=== PATIENT | male | born 1965 | race Two or more races ===

== ENCOUNTER 2024-06-08 07:46 | Outpatient (AMB) | payer OTHER, SELFPAY ==
--- OUTSIDE RECORDS SUMMARY | 2024-06-08 07:54 | XMS_ITS | Clinical Summary ---
Author Organization [facility] Address [address] [place] [address] Care Team Providers Care Crm Marketing Manager Name Role Phone Melanie Cummins Primary Care Provider +1 [phone] Allergies No known active allergies Medications Medication Sig Dispensed Refills Start Date End Date Status aspirin EC 325 MG tablet Take 325 mg by mouth continuous prn for pain. 0 Active Active Problems Problem Noted Date Diagnosed Date Large cell lymphoma 02/15/2017 Immunizations Name Administration Dates Next Due Covid-19 (Pfizer) Dilution Required 01/28/2021,0 06/05/2020,05/15/2020 Social History Tobacco Use Types Packs/Day Years Used Date Smoking Tobacco: Former Smokeless Tobacco: Never Alcohol Use Standard Drinks/Week Comments Yes 0 (1 standard drink = 0.6 oz pur e alcohol) social Sex and Gender Information Value Date Recorded Sex Assigned at Not on file Gender Identity Not on file Sexual Orientation Not on file Job Start Date Occupation Industry Not on file Not on file Not on file Last Filed Vital Signs Vital Sign Reading Time Taken Comments Blood Pressure 150/66 06/09/2022 9:50 AM EDT Pulse 86 06/09/2022 9:50 AM EDT Temperature 37 ??C (98.6 ??F) 06/09/2022 9:50 AM EDT Respiratory Rate - - Oxygen Saturation 100% 06/09/2022 9:50 AM EDT Inhaled Oxygen Concentration - - Weight 164.7 kg (363 lb) 06/09/2022 9:50 AM EDT Height 180.3 cm (5' 11 ) 12/09/2021 9:08 AM EDT Body Mass Index 50.63 12/09/2021 9:08 AM EDT Plan of Treatment Health Maintenance Due Date Last Done Comments Hepatitis C Screening 1965 Pneumococcal Vaccine (1 of 2 - PCV) 12/03/1969 Depression Screening 1975 Preventative Health Evaluation 12/03/1981 DTap / Tdap / Td (1 - Tdap) 12/03/1982 Shingrix-Zoster Vaccine (1 o f 2) 12/03/1982 Colon Cancer Screening (Colonoscopy) 12/03/2008 COVID-19 Vaccine (4 - 2023-2 5 season) 2023 01/28/2021, 06/05/2020, 05/15/2020 Influenza Vaccine (#1) 2023 RSV Adult > 60+ Yrs or (1 - 1-dose 75+ series) 12/03/2038 Hepatitis B Vaccines Aged Out No long er eligible based on patient's age to complete this topic RSV Ped < 20 months Aged Out No longe r eligible based on patient's age to complete this topic Care Teams Crm Marketing Manager Relationship Specialty Start Date End Date Melanie Cummins PA PCP - General Physician Lap Hand Tool 12/09/21
--- OUTSIDE RECORDS SUMMARY | 2024-06-08 07:54 | XMS_ITS | Clinical Summary ---
Author Organization [facility] Address [address] [place] [address] Care Team Providers Care Java Support Engineer Name Role Phone Melanie Cummins Primary Care Provider +1 [phone] Surgical History Surgery Date Site/Laterality Comments ROTATOR CUFF REPAIR PROCEDURE: HISTORICAL ROTATOR CUFF REPAIR; COMMENT: bilateral COLONOSCOPY 09/2009 PROCEDURE: [place] COLONOSCOPY FLX DX W/COLLJ SPEC WHEN PFRMD; COMMENT: Up to cecum, good preparation, 2 small polyps removed:tubular adenoma/hyperplastic, diverticulosis Medical History Medical History Date Comments Morbid obesity (CMS/HCC) 08/24/2008 DX:Morb id obesity (HCC) 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) DX: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) Family History Relation Name Status Comments Father Alive low blood press ure, hyperlipidemia, [place] at age 65, hemochromatosis Mother Alive obesity, arthri tis, htn, Social History Tobacco Use Types Packs/Day Years Used Date Smoking Tobacco: Former Cigarettes Q uit: 03/29/1984 Smokeless Tobacco: Never Alcohol Use Standard Drinks/Week Comments Yes 0 (1 standard drink = 0.6 oz pur e alcohol) Sex and Gender Information Value Date Recorded Sex Assigned at Not on file Legal Sex Male 8:06 PM EST Gender Identity Not on file Sexual Orientation Not on file Obstetrics History Last Filed Vital Signs Vital Sign Reading Time Taken Comments Blood Pressure 150/66 06/09/2022 9:50 AM EDT Sitting Right arm Pulse 86 06/09/2022 9:50 AM EDT Temperature - - Respiratory Rate - - Oxygen Saturation - - Inhaled Oxygen Concentration - - Weight 165 kg (363 lb) 06/09/2022 9:50 AM EDT Height 180.3 cm (5' 11 ) 12/09/2021 9:0 8 AM EDT Body Mass Index 50.63 12/09/2021 9:08 AM EDT Plan of Treatment Health Maintenance Due Date Last Done Comments DTaP,Tdap,and Td Vaccines (1 - Tdap) 12/03/1982 Pneumococcal Vaccine: 50+ Years (1 of 2 - PCV) 12/03/1982 Pneumococcal Vaccine: Pediatrics (0 to 5 Years) and At-Risk Patients (6 to 64 Years) (1 of 2 - PCV) 12/03/1982 Zoster Vaccines (1 of 2) 12/03/1982 Cholesterol Screening (Lipid Panel) 03/07/2022 Colorectal Cancer Screening: Colonoscopy 03/07/2022 Depression Screening 03/07/2022 HIV Screening 03/07/2022 Hepatitis C Screening 03/07/2022 Social Influencers of Health Screening 03/07/2022 COVID-19 Vaccine (4 - 2023-2 5 season) 2023 01/28/2021, 06/05/2020, 05/15/2020 Influenza Vaccine (#1) 2023 Hepatitis B Vaccines (1 of 3 - Risk 3-dose series) 2023 RSV Immunization Patients 60 + Years Old (1 - Risk 60-74 years 1-dose series) 2023 Hepatitis A Vaccines Completed 09/17/2009, 01/04/2009 HIB Vaccines Aged Out No longer eligi ble based on patient's age to complete this topic HPV Vaccines Aged Out No longer eligi ble based on patient's age to complete this topic IPV Vaccines Aged Out No longer eligi ble based on patient's age to complete this topic MMR Vaccines Aged Out No longer eligi ble based on patient's age to complete this topic Meningococcal ACWY Vaccine Aged Out N o longer eligible based on patient's age to complete this topic Meningococcal B Vacine Aged Out No lo nger eligible based on patient's age to complete this topic RSV Immunization Patients Under 20 months Aged Out No longer eligible b ased on patient's age to complete this topic Varicella Vaccines Aged Out No longer eligible based on patient's age to complete this topic Care Teams Java Support Engineer Relationship Specialty Start Date End Date Melanie Cummins PA [address] [facility] [address] [place] [address] PCP - General Physician Card Grader 12/09/21
[2024-06-08 08:11] VITALS: BP 130/84; PULSE 72; TEMP 36.4; O2SAT 97; BMI 50.6
--- NOTE | 2024-06-08 08:11 | MHC.PC.OV ---
Vital Signs 06/08/24 08:11 Height 5 ft 10.08 in Weight 353 lb 8 oz BMI 50.6 BP 130/84 Blood Pressure Location Lt brachial Position Sitting Pulse 72 Pulse Source Pulse Oximeter Temp 97.5 F Temp Source Temporal Artery Scan Pulse Oximetry (%) 97 Oxygen Delivery Method Room Air Intake Visit Reasons: establish care Intake Note: Patient is a new patient here to establish care for Stage four cancer, Neuropathy. Transferring care from Dr Raya ([facility]). Medical records have been requested and have not received. Medical Records Auditor: Not Required per policy Accompanied by: Self / Same As Patient Allergies No Known Allergies Allergy (Verified 06/08/24 08:23) Medication List - Last Reconciled 06/08/24 by Sammie Estrella PA-C aspirin 81 mg PO DAILY Tobacco use date assessed: 06/08/24 Dental Screening Dental Screen Date: 06/08/24 Did you have a dental visit in the last 12 months?: No Did you have a dental problem in the last 6 months where you did not have access to dental care?: No Was dental information given to patient?: Patient has dentist HPI establish care HPI Details 58-year-old male coming to the office for 1st time. Last seen by Dr. Araujo [facility] last seen about 10 years ago. Presenting with a wellness visit and management of chronic conditions including edema, erectile dysfunction, and neuropathy. 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 Reports chronic peripheral neuropathy and pitting edema in feet since lymphoma treatment, worsened by activity and dietary sodium. Struggles with erectile dysfunction post-cancer treatment, seeking potential pharmacologic treatment. 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 1. Little interest or pleasure in doing things: not at all 2. Feeling down, depressed, or hopeless: not at all 3. Trouble falling or staying asleep, or sleeping too much: not at all 4. Feeling tired or having little energy: not at all 5. Poor appetite or overeating: not at all 6. Feeling bad about yourself - or that you are a failure or have let yourself or your family down: not at all 7. Trouble concentrating on things, such as reading the newspaper or watching television: not at all 8. Moving or speaking so slowly that other people could have noticed. Or the opposite - being so fidgety or restless that you have been moving around a lot more than usual: not at all 9. Thoughts that you would be better off or of hurting yourself in some way: not at all Total score: 0 Depression Screening Interpretation: Negative Depression Screening Done: Yes 25819 - PHQ-9 Billing: Yes Source: Developed by Drs. Viral Wynn, Anayeli Gonsalez, Kentrell West and colleagues, with an educational josseline from [employer]. Thrive Questionnaire Date Thrive assessed: 06/08/24 I am a: Patient What is your living situation today?: I have a steady place to live Within the past 12 months, did the food you bought not last and you didn't have the money to get more?: Never true Within the past 12 months, did you worry whether your food would run out before you got money to buy more?: Never true Do you have trouble paying for medicines?: No Do you have trouble getting transportation to medical appointments?: No Do you have trouble paying your heating and electricity bill?: No Do you have trouble taking care of your child, family member or friend?: No Do you have trouble with day-to-day activities such as bathing, preparing meals, shopping, managing finances, etc.?: No Are you currently unemployed and looking for a job?: No Are you interested in more education?: No Please select the resources that you would like help with: None Currently or been in a relationship where the following occur: No concerns reported THRIVE Score: 0 AUDIT C Alcohol Use Questionnaire (AUDIT-C) 1. How often do you have a drink containing alcohol?: Never Total Score: 0 MARRY-7 AMB Questionnaire MARRY-7 Date MARRY - 7 assessed: 06/08/24 Feeling nervous, anxious, or on edge: 0 = Not at all Not being able to stop or control worryin = Not at all Worrying too much about different things: 0 = Not at all Trouble relaxin = Not at all Being so restless that it is hard to sit still: 0 = Not at all Becoming easily annoyed or irritable: 0 = Not at all Feeling afraid as if something awful might happen: 0 = Not at all Total MARRY-7 score (0-4 normal; 5-9 mild; 10-14 moderate; 15-21 severe): 0 Source: Developed by Drs. Viral Wynn, Anayeli Gonsalez, Kentrell West and colleagues, with an educational josseline from [employer]. MARRY-7 Assessment Billing MARRY-7 Assessment Tool: MARRY-7 Assessment 50245 Review of Systems Const Denies body aches, Denies chills, Denies fever(s), Denies headache(s) and Denies poor appetite Eyes Reports no additional complaints ENT Denies dizziness and Denies headache(s) Card Denies chest pain, Denies syncope, Denies lightheadedness and Denies dyspnea Resp Denies cough and Denies dyspnea GI Reports no additional complaints, Denies nausea and Denies vomiting Reports erectile dysfunction Musc Details: bilateral leg swelling Denies abnormal gait Skin/Breast Reports system reviewed and no additional complaints, except as documented Neuro Denies abnormal gait, Denies dizziness, Denies syncope and Denies headache(s) Psych Reports no additional complaints Physical exam (Primary Care) Vital Signs: Last Vital Signs Temp 97.5 F 06/08/24 08:11 Pulse 72 06/08/24 08:11 BP 130/84 06/08/24 08:11 Pulse Ox 97 06/08/24 08:11 Oxygen Delivery Method Room Air 06/08/24 08:11 BMI result Body Mass Index 50.6 Tobacco/Smoking Status: Tobacco use Status Tobacco use date assessed 06/08/24 06/08/24 08:12 Patient Tobacco Use Status Never used Tobacco 06/08/24 08:12 Tobacco use type Cigarette 06/08/24 08:12 e-Cigarette/Vaping Use Never Used 06/08/24 08:12 PHQ-9: PHQ-9 Score PHQ-9: Total score 0 06/08/24 11:42 Depression Screening Interpretation: Negative Thrive Assessment: Date of Thrive Assessment Date Thrive assessed 06/08/24 06/08/24 08:12 Currently or been in a relationship where the following occur: No concerns reported Const General: cooperative, healthy appearing, comfortable and no acute distress Orientation/consciousness: patient oriented x3 HENMT Head: Yes normocephalic Ears: hearing grossly normal bilaterally General nose exam: Normal external nose present Eyes General: appearance normal, both eyes and all related structures Conjunctivae: conjunctivae normal Neck Neck: Yes full ROM and Yes no lymphadenopathy Resp Effort & Inspection: normal respiratory effort Auscultation: clear to auscultation bilaterally, no crackles, no rales, no rhonchi and no wheezes Cardio Rate: regular rate Rhythm: regular rhythm Skin General skin exam: no rashes or lesions noted Neuro General: patient oriented x3 Gait exam (Neuro): Normal gait present Extrem Other: Bilateral 1+ pitting edema with intact sensation and pulses in bilateral lower extremities General: Yes normal to inspection, Yes full ROM and No edema Psych Affect: normal affect Attitude: cooperative Insight: Good insight present (Psych) Judgement: Good judgement present (Psych) Coding Level of Care Code New Pt Level 4 (27163) Diagnoses Stage Lola non-Hodgkin lymphoma C85.90 Erectile dysfunction N52.9 Neuropathy G62.9 Bilateral swelling of feet M79.89 Diabetes mellitus E11.9 Thrombocytopenia D69.6 Low vitamin D level R79.89 Hypercholesterolemia E78.00 Additional Codes MARRY-7 Assessment Billing - MARRY-7 Assessment Tool: MARRY-7 Assessment 07737 ([id number]) PHQ-9 - 77762 - PHQ-9 Billing: Yes ([id number]) Assessment & Plan Assessment & Plan (1) Stage Lola non-Hodgkin lymphoma: Comment: 2013 followed with [facility] Oncology Dr. Shaikh has not been seen since 2019 Code(s): C85.90 - Non-Hodgkin lymphoma, unspecified, unspecified site Category: Medical Plan: Plan to refer to Hematology for further evaluation. (2) Erectile dysfunction: Code(s): N52.9 - Male erectile dysfunction, unspecified Category: Medical Plan: Patient having erectile dysfunction ongoing for several years plan to start on sildenafil as needed. (3) Neuropathy: Comment: in bilateral feet since cancer (2013) Code(s): G62.9 - Polyneuropathy, unspecified Category: Medical Plan: patient complaining of neuropathy ongoing since his hospitalization 10 years ago. He declines the need for medication at this time and does not want further workup. (4) Bilateral swelling of feet: Code(s): M79.89 - Other specified soft tissue disorders Category: Medical Plan: patient having 1+ pitting edema of bilateral lower extremities. He does have chronic venous insufficiency after his diagnosis of cancer due to does not hospitalization. He exercises and elevates the legs as needed with good relief. He can not tolerate compression stockings. plan to give short course of furosemide to help with symptoms can consider referral to vascular surgery if symptoms persist however referral was declined at this time (5) Diabetes mellitus: Code(s): E11.9 - Type 2 diabetes mellitus without complications Category: Medical Plan: patient has new diagnosis of diabetes mellitus which was discovered offer who left the office. I did call discussed with him and plan to start on metformin twice daily and repeat A1c in 3 months. He declined injections including insulin at this time. he does understand the risks of prolonged elevated blood sugars he is to work on dietary and lifestyle modification addition to the medication Decrease the amount of carbohydrates such as pasta, bread, rice, and potatoes and limit the amount of sweets. Although fruits are generally healthy they should be eaten in moderation as they are still high in sugar. Hemoglobin A1c goal of less than 7%. A1c on most recent blood work 10.4% (6) Thrombocytopenia: Code(s): D69.6 - Thrombocytopenia, unspecified Category: Medical Plan: On most recent blood work patient having thrombocytopenia referral to Hematology updated to reflect this new diagnosis. (7) Low vitamin D level: Code(s): R79.89 - Other specified abnormal findings of blood chemistry Category: Medical Plan: Low vitamin-D prescription sent for replacement. (8) Hypercholesterolemia: Code(s): E78.00 - Pure hypercholesterolemia, unspecified Category: Medical Plan: New diagnosis of hypercholesterolemia LDL goal less than 100 to reflect new diagnosis of diabetes. At this time plan to work on dietary and lifestyle modification and redraw in 3 months. Avoid foods that are high in cholesterol such as red meat, fried foods, eggs and baked goods. Triglyceride goal of less than 150 and LDL goal of less than 100. Plan Patient was informed and verbally consented to the use of an ambient scribe for clinic note documentation during this visit.This note was constructed using voice recognition software. While every effort has been made to ensure accuracy and registered nurse maternal child, still areas may have been included sometimes these areas may affect the content or meeting of the given symptoms. Total time spent caring for the patient today was 30 minutes. This includes time spent before the visit reviewing the chart, time spent during the visit, and time spent after the visit and documentation. Orders: Orders Comprehensive Met. Panel Today Z00.00 - Encounter for general adult medical examination without abnormal findings Complete Blood Count Auto Diff Today Z00.00 - Encounter for general adult medical examination without abnormal findings Free T4 (Free Thyroxine) Today Z00.00 - Encounter for general adult medical examination without abnormal findings Vitamin B12 and Folate Today Z00.00 - Encounter for general adult medical examination without abnormal findings Vitamin D 25-OH Total Today Z00.00 - Encounter for general adult medical examination without abnormal findings Hemoglobin A1c Today G62.9 - Polyneuropathy, unspecified, Z13.1 - Encounter for screening for diabetes mellitus Lipid Panel 3 Months E78.00 - Pure hypercholesterolemia, unspecified Liver Panel Today R79.89 - Other specified abnormal findings of blood chemistry Lactate Dehydrogenase Today C85.90 - Non-Hodgkin lymphoma, unspecified, unspecified site TSH reflex Free T4 Today Z00.00 - Encounter for general adult medical examination without abnormal findings PSA, Ultra Sensitive Today Z00.00 - Encounter for general adult medical examination without abnormal findings Lipid Panel Today E78.00 - Pure hypercholesterolemia, unspecified Testosterone, Free/Total Today N52.9 - Male erectile dysfunction, unspecified B Type Natriuretic Peptide Today M79.89 - Other specified soft tissue disorders Hemoglobin A1c 3 Months E11.65 - Type 2 diabetes mellitus with hyperglycemia Referrals Hematology & Oncology Referral C85.90 - Non-Hodgkin lymphoma, unspecified, unspecified site, D69.6 - Thrombocytopenia, unspecified Medications: New sildenafil administer 30 minutes to 4 hours before activity 50 mg PO DAILY PRN 20 tabs 0RF sexual activity furosemide 20 mg PO DAILY 7 tabs 0RF cholecalciferol (vitamin D3) 25 mcg PO DAILY 90 caps 3RF metformin 500 mg PO BID 60 tabs 2RF
--- OUTSIDE RECORDS SUMMARY | 2024-06-08 08:22 | XMS_ITS | Clinical Summary ---
Author Organization [facility] Address [address] [place] [address] Care Team Providers Care Supervisor Drying And Softening Name Role Phone Melanie Cummins Primary Care Provider +1 -[phone] Allergies No known active allergies Medications Medication [...] age to complete this topic Care Teams Supervisor Drying And Softening Relationship Specialty Start Date End Date Melanie Cummins PA PCP - General Physician Procurement Services Manager 12/09/21
--- OUTSIDE RECORDS SUMMARY | 2024-06-08 08:22 | XMS_ITS | Clinical Summary ---
Author Organization [facility] Address [address] [place] [address] Care Team Providers Care Water Fitness Instructor Name Role Phone Melanie Cummins Primary Care Provider +1 -[phone] Surgical History Surgery Date Site/Laterality Comments ROTATOR CUFF REPAIR PROCEDURE: HISTORICAL ROTATOR CUFF REPAIR; COMMENT: bilateral COLONOSCOPY 09/2009 PROCEDURE: [place] COLONOSCOPY FLX DX W/COLLJ SPEC WHEN PFRMD; [...] Father Alive low blood press ure, hyperlipidemia, [place] at age 65, hemochromatosis Mother Alive obesity, [...] age to complete this topic Care Teams Water Fitness Instructor Relationship Specialty Start Date End Date Melanie Cummins PA [address] [facility] [address] [place] [address] PCP - General Physician Alodize Machine Helper 12/09/21
== END 2024-06-08 08:53 | disposition home or self-care (01) ==
DX: E11.42 Type 2 diabetes mellitus with diabetic polyneuropathy (principal); C85.90 Non-Hodgkin lymphoma, unspecified, unspecified site; D69.6 Thrombocytopenia, unspecified; N52.9 Male erectile dysfunction, unspecified; G62.9 Polyneuropathy, unspecified; M79.89 Other specified soft tissue disorders; R79.89 Other specified abnormal findings of blood chemistry; E78.00 Pure hypercholesterolemia, unspecified

== ENCOUNTER 2024-06-08 07:51 | Outpatient (REF) | payer OTHER, SELFPAY ==
[2024-06-08 09:39] LABS: Basophils Absolute Auto 0.1 X10*3/uL (0.0-0.2); Eosinophils Absolute Auto 0.3 X10*3/uL (0.0-0.4); Eosinophils Percent Auto 5.8 % (0-4); Hematocrit 39.5 % (42.0-52.0); Imm Gran Abs Auto 0.01 X10*3/uL (0.00-0.03); Imm Gran Pct Auto 0.2 % (0.0-0.4); Lymphocytes Absolute Auto 1.4 X10*3/uL (1.2-4.9); Mean Corpuscular HGB Conc 32.9 g/dl (31.0-36.0); Mean Corpuscular Hemoglobin 29.9 pg (27.0-33.0); Mean Corpuscular Volume 90.8 fL (80.0-98.0); Mean Platelet Volume 12.5 fL (9.4-12.4); Monocytes Absolute Auto 0.5 X10*3/uL (0.1-1.2); Monocytes Percent Auto 9.1 % (2-11); Neutrophils Absolute Auto 2.7 x10*3/uL (2.0-8.3); Neutrophils Percent Auto 54.9 % (45-73); Red Blood Count 4.35 X10*6/uL (4.60-5.80); Red Cell Distribution Width 13.6 % (11.0-16.0)
[2024-06-08 09:40] LABS: MANUAL DIFF FLAG SCAN; Platelet Count 91 X10*3/uL (160-400)
[2024-06-08 09:48] LABS: Estimated Average Glucose 260 mg/dL; Hemoglobin A1c % 10.7 % (<6.0)
[2024-06-08 09:59] LABS: SLIDE REVIEW VERIFIED
[2024-06-08 10:03] LABS: B Type Natriuretic Peptide 81 pg/mL (<100)
--- OUTSIDE RECORDS SUMMARY | 2024-06-08 10:08 | XMS_ITS | Clinical Summary ---
Author Organization [facility] Address [address] [place] [address] Care Team Providers Care Wheel Loader Operator Name Role Phone Melanie Cummins Primary Care Provider [phone] [phone] Surgical History Surgery Date Site/Laterality Comments ROTATOR CUFF REPAIR PROCEDURE: HISTORICAL ROTATOR CUFF REPAIR; COMMENT: bilateral COLONOSCOPY 09/2009 PROCEDURE: [place] COLONOSCOPY FLX DX W/COLLJ SPEC WHEN PFRMD; [...] Father Alive low blood press ure, hyperlipidemia, [place] at age 65, hemochromatosis Mother Alive obesity, [...] age to complete this topic Care Teams Wheel Loader Operator Relationship Specialty Start Date End Date Melanie Cummins PA [address] [facility] [address] [place] [address] PCP - General Physician Auto Locator 12/09/21
[2024-06-08 10:16] LABS: Anion Gap 10 (12-20)
[2024-06-08 10:20] LABS: Alanine Aminotransferase 31 U/L (0-40); Albumin Level 3.5 g/dL (3.5-5.0); Alkaline Phosphatase 84 U/L (39-117); Aspartate Amino Transferase 39 U/L (5-37); Blood Urea Nitrogen 13 mg/dL (9-16); Calcium 8.9 mg/dL (8.4-10.2); Carbon Dioxide 26 mmol/L (22-29); Chloride 107 mmol/L (96-108); Cholesterol 180 mg/dL (<200); Estimated Glomerular Filt Rate > 60; Glucose Random 314 mg/dL (60-115); HDL Cholesterol 56 mg/dL (>40); LDL Cholesterol Calculated 104 mg/dL (<100); Potassium 4.2 mmol/L (3.3-5.1); Sodium 139 mmol/L (135-145); Total Protein 6.8 g/dL (6.5-8.0); Triglycerides 100 mg/dL (<150)
[2024-06-08 10:28] LABS: Free T4 (Free Thyroxine) 1.19 ng/dL (0.71-1.85); Lactate Dehydrogenase 222 U/L (118-273); TSH reflex Free T4 1.59 uIU/mL (0.32-4.0); Vitamin D 25-OH Total 9.4 ng/mL (>30)
[2024-06-08 10:42] LABS: Folate 11.6 ng/mL (> or = 4.0); Vitamin B12 611 pg/mL (200-900)
[2024-06-13 19:09] LABS: PSA, Ultra Sensitive 0.34 ng/mL
[2024-06-19 14:52] LABS: Testosterone, Total 475 ng/dL (250-1100)
== END 2024-06-08 07:52 | disposition home or self-care (01) ==
LOC: HO.LAB 07:51
DX: N52.9 Male erectile dysfunction, unspecified (principal); G62.9 Polyneuropathy, unspecified; M79.89 Other specified soft tissue disorders; E11.9 Type 2 diabetes mellitus without complications; D69.6 Thrombocytopenia, unspecified; E55.9 Vitamin D deficiency, unspecified; E78.00 Pure hypercholesterolemia, unspecified; C83.30 Diffuse large B-cell lymphoma, unspecified site; Z00.00 Encounter for general adult medical examination without abnormal findings; Z12.5 Encounter for screening for malignant neoplasm of prostate
CPT/HCPCS: 36415; 80053; 80061; 82306; 82607; 82746; 83036; 83615; 83880; 84153; 84402; 84403; 84439; 84443; 85025; 96127

== ENCOUNTER → 2024-07-06 13:40 | Outpatient (BNV) | payer OTHER, SELFPAY | PROVIDERS: Visit Provider Internal Medicine Medical Oncology | DX: C85.90 Non-Hodgkin lymphoma, unspecified, unspecified site (principal) | CPT/HCPCS: 99204 ==

== ENCOUNTER 2024-09-04 14:57 | Inpatient (IN) | payer OTHER, SELFPAY ==
--- NOTE | ~2024-09-04 | MR_ITS ---
EXAMINATION: MR LUMBAR SPINE WITHOUT AND WITH CONTRAST CLINICAL INFORMATION: Low back pain radiating to the left knee. Concerning epidural abscess. COMPARISON: None available. TECHNIQUE: MRI of the lumbar spine was obtained using routine sequences with and without contrast. Intravenous contrast: Gadolinium based (Gadavist) 10 mL FINDINGS: Last rib-bearing vertebra labeled T12. There is a hypointense T1 and hyperintense STIR heterogeneously enhancing signal abnormality extending from the vertebral bodies of L4 and L5 to the prevertebral compartment hematoma circumferential fashion extending to the epidural compartment of the central spinal canal causing central spinal canal stenosis compressing the neural elements of the thecal sac at L4-5. There is extension to the inner aspect of the psoas muscles and into the lumbar muscles from L4 to S1. Conus medullaris ends at superior endplate of L1. Multilevel spondylosis more conspicuous at L1-2. MR/MR lumbar spine wo/w con IMPRESSION: Prevertebral compartment/epidural abscess/osteomyelitis L4-5 compressing the neural elements of the thecal sac and the exiting nerve roots more pronounced at L4-5 and extending into S1-2. Electronically signed by: Brett Heath MD 09/06/2024 02:07 PM EDT
--- NOTE | ~2024-09-04 | XR_ITS ---
EXAMINATION: XR CHEST 2 VIEWS HISTORY: weakness COMPARISON: There are no prior studies available for comparison. FINDINGS: PA and lateral views of the chest are submitted. The lungs are expanded and clear. There is no pleural effusion, pneumothorax, or pulmonary vascular congestion. The heart is normal in size. The bones are intact. XR/XR chest 2V IMPRESSION: Clear lungs. Electronically signed by: Viral Valdes MD 09/04/2024 03:43 PM EDT
--- NOTE | ~2024-09-04 | XR_ITS ---
CLINICAL HISTORY: trauma 4 view left knee Comparison: None Findings: Bones intact. No dislocations. Mild medial compartment joint space narrowing. Moderate joint effusion. Patellar enthesopathy. No radiopaque foreign body. IMPRESSION: 1. No acute osseous injury. 2. Moderate knee joint effusion. This document has been electronically signed by: Priynaka Philippe MD on 09/04/2024 23:25:50
[2024-09-04 15:02] VITALS: BP 97/58; PULSE 82; RESP 18; TEMP 36.6; O2SAT 98; BMI 36.6
--- NOTE | 2024-09-04 15:02 | ED.GENADULT ---
HPI - General Adult General Chief complaint: Dizziness Stated complaint: Fall, Dizzy, left leg/ back pain, septic week ago Time Seen by Provider: 09/04/24 18:07 Source: patient Limitations: no limitations History of Present Illness ED Provider: Mitra Churchill PA-C HPI narrative: 58-year-old male with a history of obesity, diabetes with neuropathy, stage IV non-Hodgkin lymphoma, chronic low back and knee pain, Davis, cirrhosis, recent admission to [facility] for strep bacteremia, with concurrent extensive workup for his tram am rhinitis and hyper bilirubinemia, presents after fall. Patient has had ongoing weakness with gait instability for months. He fell yesterday, he fell again today. No head strike sustained. His noted that he was jaundiced over the past few days. The patient does not have an alcohol abuse history. No nausea vomiting diarrhea or abdominal pain at this time. Related Data Home Medications ?Medication ?Instructions ?Recorded ?Confirmed aspirin 81 mg tablet,delayed 81 mg PO DAILY 06/08/24 07/06/24 release Previous Rx's ?Medication ?Instructions ?Recorded cholecalciferol (vitamin D3) 25 25 mcg PO DAILY #90 caps 06/08/24 mcg (1,000 unit) capsule furosemide 20 mg tablet 20 mg PO DAILY #7 tabs 06/08/24 metformin 500 mg tablet 500 mg PO BID #60 tabs 06/08/24 sildenafil 50 mg tablet 50 mg PO DAILY PRN sexual activity 06/08/24 #20 tabs Allergies Allergy/AdvReac Type Severity Reaction Status Date / Time No Known Allergies Allergy Verified 09/04/24 15:05 Review of Systems Review of Systems: Yes all other systems are reviewed and are negative Constitutional: Constitutional: Denies fatigue, Denies fever(s) and Denies headache(s) ENT: Denies headache(s) Cardiovascular: Cardiovascular: Denies chest pain and Denies dyspnea Respiratory: Respiratory: Denies dyspnea Gastrointestinal: Gastrointestinal: Denies abdominal pain, Denies diarrhea, Denies nausea and Denies vomiting Integumentary/Breasts: Skin/Breast: Reports change in pigmentation and Denies rash Neurologic: Denies headache(s) Endocrine: Endocrine: Denies fatigue PMFSH Past Medical History Attestation statement: The following information was validated with the patient. Surgical History (Updated 07/06/24 @ 14:40 by Gianna Nolan MD) History of hernia repair History of shoulder surgery Social History Social History (Updated 07/06/24 @ 14:30 by Mena Lawrence) Household Members: Spouse Housing: House Are you a primary animal care specialist to a significant other at home: No Do you presently have visiting nurse or other home services: Yes Alcohol intake: current Alcohol intake frequency: a few times a month Patient Tobacco Use Status: Never used Tobacco Tobacco use type: Cigarette e-Cigarette/Vaping Use: Never Used Second Hand Smoke Exposure: No Advance Directives: Yes Advance Directives on File: Yes Advance Directives Date on File: 09/04/24 Do you have a plan to hurt others: No Plan service: Yes Current occupational status: employed 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 [employer] Current occupational exposures/hazards: No Cognitive needs: No Hearing needs: No Vision needs: No Physical Exam ED Vital Signs: Vital Signs - 24 hr 09/04/24 15:02 09/04/24 18:59 09/04/24 19:36 Temperature 98 F 97.8 F Pulse Rate 82 84 82 Respiratory Rate 18 18 21 H Blood Pressure 97/58 L 129/66 120/60 Pulse Oximetry 98 96 96 Oxygen Delivery Method Room Air Room Air Room Air 09/04/24 19:46 09/04/24 20:08 09/04/24 23:46 Temperature 98.3 F Pulse Rate 81 78 Respiratory Rate 15 16 Blood Pressure 114/59 L 102/51 L 108/52 L Pulse Oximetry 95 96 Oxygen Delivery Method Room Air Room Air BMI result Body Mass Index 36.6 Const Other: Alert Orientation/consciousness: patient oriented x3 HENMT Other: Dry oral mucosa Resp Effort & Inspection: normal respiratory effort Cardio Other: Normal peripheral perfusion Skin Other: Jaundice, no rash Neuro General: patient oriented x3, gait normal, no focal motor deficits and CN's II-XI intact bilaterally Extrem Other: Left knee swollen when compared to the right, unwilling to flex or extend secondary to pain Psych Other: Cooperative Course Course Course Narrative: RME, this is a rapid medical exam performed by Brendan Ramos please refer to primary provider for complete H&P- 58 year old male with history of non-hodgkin lymphoma presents for evaluation of weakness and dizziness. He reports that he was recently admitted to [facility] for sepsis and was discharged o rehab 2 weeks ago. He complains of low back pain and left knee pain. Plan for labs, UA, chest x-ray, and will attempt to get records from [facility] Reevaluation(s) Reevaluation #1: At 6:13 p.m. on September 04, a sepsis focused exam was performed. The patient is hypotensive, but not tachycardic, afebrile. In addition to screening labs we will be ordering blood cultures, lactic, giving ideal body weight, weight based IV fluids, starting ceftriaxone. I do suspect the hypotension is secondary to his liver failure. Time: 18:13 Reevaluation #2: I family received records from [facility], the patient's bilirubin was markedly elevated at 4.8 during his admission the last week in June of this year. He had extensive outpatient workup including an MRCP, there was no biliary pathology, the thought is that the patient has Davis/cirrhosis. I spoke with Dr. Alves, our help aid from [facility], he is the patient's brother, I relayed findings today, and that the patient would be admitted. He wanted to note that there is a family history of Guillain-[place], their sister has it, will relay to the inpatient team. Medications Administered Generic Name Dose Route Start Last Admin Trade Name Freq PRN Reason Stop Dose Admin Enoxaparin Sodium 40 mg 09/05/24 01:00 09/05/24 01:07 Enoxaparin Sodium 40 Mg/0.4 Ml Syringe SUBCUT 40 mg Q24H MARTHA Administration Discontinued Medications Generic Name Dose Route Start Last Admin Trade Name Freq PRN Reason Stop Dose Admin Ceftriaxone Sodium 2 gm 09/04/24 18:13 09/04/24 18:28 Ceftriaxone Sodium 2 Gm Vial IVPUSH 09/04/24 18:14 2 gm ONCE ONE Administration Sodium Chloride 3,674.1 mls @ 3,674.1 mls/hr 09/04/24 18:07 09/04/24 19:35 Ns 30 ml/kg infuse over 1 hr (3674.1 ml) 09/04/24 19:06 Infused IV Infusion .Q1H STA Magnesium Sulfate 2 gm in 50 mls @ 25 mls/hr 09/04/24 18:14 09/04/24 20:31 Magnesium Sulfate/H2o IV 09/04/24 20:13 Infused ONCE ONE Infusion Albumin Human 100 mls @ 133.333 mls/hr 09/04/24 22:15 09/05/24 00:44 Kedbumin 25 % IV 09/04/24 23:59 Infused Q1H MARTHA Infusion Magnesium Oxide 800 mg 09/04/24 22:14 09/04/24 22:21 Magnesium Oxide 400 Mg Tablet PO 09/04/24 22:15 800 mg ONCE ONE Administration Morphine Sulfate 4 mg 09/04/24 19:02 09/04/24 19:45 Morphine Sulfate 4 Mg/Ml Cartridge IVPUSH 09/04/24 19:03 4 mg ONCE ONE Administration Protocol Medical Decision Making Medical Decision Making MDM Narrative: 58-year-old male with a history of obesity, diabetes with neuropathy, stage IV non-Hodgkin lymphoma, chronic low back and knee pain, Davis, cirrhosis, recent admission to [facility] for strep bacteremia, with concurrent extensive workup for his tram am rhinitis and hyper bilirubinemia, presents after fall. Patient has had ongoing weakness with gait instability for months. He fell yesterday, he fell again today. No head strike sustained. His noted that he was jaundiced over the past few days. The patient does not have an alcohol abuse history. No nausea vomiting diarrhea or abdominal pain at this time. Problem: Diabetes, cirrhosis, Davis, gait instability History: Per patient I have considered the following differential diagnoses: Sepsis, worsening hepatic function, hepatic encephalopathy, FTT, dehydration, anemia Plan: Sepsis considered, the patient is hypotensive, in addition to screening labs we will be obtaining blood cultures, lactic acid, starting empiric ideal body weight, weight based IV fluids and starting ceftriaxone. We will need to obtain records from [facility]. I do not think this is sepsis, I do think the patient is hypotensive is secondary to his liver dysfunction. There was no compensatory tachycardia, the patient is afebrile, he has no infectious signs symptoms. Some screening labs have returned, his 1st lactic is 3.6, 2nd is 3.6, a 3rd we will reflexively be obtained. His albumin is low, we will order repletion. His magnesium is low we will order 2 g of magnesium IV and give oral magnesium. I have independently reviewed the following tests: Labs: No overall leukocytosis, lymphocyte count low, not anemic, 1st lactic acid 3.6, the 2nd 3.6, the 3rd 2.5, magnesium low at 1.3, total bilirubin 2.3, AST 45, albumin low at 2.8 Chest x-ray:INDINGS: PA and lateral views of the chest are submitted. The lungs are expanded and clear. There is no pleural effusion, pneumothorax, or pulmonary vascular congestion. The heart is normal in size. The bones are intact. XR/XR chest 2V IMPRESSION: X-ray left knee:Findings: Bones intact. No dislocations. Mild medial compartment joint space narrowing. Moderate joint effusion. Patellar enthesopathy. No radiopaque foreign body. IMPRESSION: 1. No acute osseous injury. 2. Moderate knee joint effusion. Lab Data 09/04/24 15:23 09/04/24 15:23 Labs: Lab Results 09/04/24 09/04/24 09/04/24 Range/Units 15:23 17:43 20:09 WBC 7.2 (4.8-10.8) X10*3/uL RBC 3.68 L (4.60-5.80) X10*6/uL Hgb 11.4 L (14.0-18.0) g/dl Hct 33.9 L (42.0-52.0) % MCV 92.1 (80.0-98.0) fL MCH 31.0 (27.0-33.0) pg MCHC 33.6 (31.0-36.0) g/dl RDW 14.0 (11.0-16.0) % Plt Count 198 D (160-400) X10*3/uL MPV 11.3 (9.4-12.4) fL Immature Gran % (Auto) 0.3 (0.0-0.4) % Neut % (Auto) 72.6 (45-73) % Lymph % (Auto) 17.2 L (20-40) % [place] % (Auto) 8.1 (2-11) % Eos % (Auto) 1.1 (0-4) % Baso % (Auto) 0.7 (0-2) % Lymph # (Auto) 1.2 (1.2-4.9) X10*3/uL [place] # (Auto) 0.6 (0.1-1.2) X10*3/uL Eos # (Auto) 0.1 (0.0-0.4) X10*3/uL Baso # (Auto) 0.1 (0.0-0.2) X10*3/uL Abs Immat Gran (auto) 0.02 (0.00-0.03) X10*3/uL Absolute Neuts (auto) 5.2 (2.0-8.3) x10*3/uL Absolute Nucleated RBC 0.000 (0.0-0.012) X10*3/uL Nucleated RBC % (auto) 0.0 (0.0-0.2) /100WBC Sodium 134 L (135-145) mmol/L Potassium 3.4 (3.3-5.1) mmol/L Chloride 93 L (96-108) mmol/L Carbon Dioxide 27 (22-29) mmol/L Anion Gap 17 (12-20) BUN 20 H (9-16) mg/dL Creatinine 0.83 (0.5-1.4) mg/dL Estim Creat Clear Calc 127.9 Estimated GFR > 60 Random Glucose 218 H (60-115) mg/dL Lactic Acid 3.6 H* (0.5-2.0) mmol/L Lactic Acid F/U @ 2Hr 3.6 H* (0.5-2.0) mmol/L Lactic Acid F/U @ 4Hr 2.5 H* (0.5-2.0) mmol/L Calcium 9.2 (8.4-10.2) mg/dL Magnesium 1.3 L* (1.6-2.6) mg/dL Total Bilirubin 2.3 H (0.0-1.0) mg/dL AST 45 H (5-37) U/L ALT 11 (0-40) U/L Alkaline Phosphatase 79 (39-117) U/L Total Protein 7.5 (6.5-8.0) g/dL Albumin 2.8 L (3.5-5.0) g/dL Lipase 22 (8-78) U/L Urine Color Yellow Urine Appearance Clear Urine pH 6.0 (5.0-9.0) Ur Specific [place] <= 1.005 (1.005-1.025) Urine Protein Negative (Neg-Trace) mg/dL Urine Glucose (UA) Negative (Negative) mg/dL Urine Ketones Negative (Negative) mg/dL Urine Blood Negative (Negative) Urine Nitrite Negative (Negative) Ur Leukocyte Esterase Negative (Negative) Urine RBC 0-2 (0-2) /HPF Urine WBC 0-5 (0-5) /HPF Ur Squamous Epith Cells 0-2 (0-2) /HPF Urine Bacteria None Seen (None Seen) Hyaline Casts 0-2 (0-2) /LPF Influenza Type A (PCR) NEGATIVE (Negative) Influenza Type B (PCR) NEGATIVE (Negative) RSV RNA Qual (PCR) NEGATIVE (Negative) SARS-CoV-2 RNA (RT-PCR) NEGATIVE (Negative) Critical Care Time Critical Care Time Critical Care Time: Yes Total Critical Care Time: 30 Attestation: I Mitra Churchill PA-C have personally performed 30 minutes of critical care time not including lines and procedures; speaking with family, sepsis criteria etc. Discharge Plan Discharge Clinical Impression: Weakness, Gait instability, Hypomagnesemia, Cirrhosis, Jaundice, Acidosis, lactic Patient Disposition: Admitted As Inpatient
--- NOTE | 2024-09-04 15:03 | ECG_ITS ---
Test Reason : dizziness Blood Pressure : */* mmHG Vent. Rate : 82 BPM Atrial Rate : 86 BPM P-R Int : 128 ms QRS Dur : 88 ms QT Int : 408 ms P-R-T Axes : 30 52 52 degrees QTcB Int : 476 ms Normal sinus rhythm with sinus arrhythmia Normal ECG No previous ECGs available Referred By: Álvaro Ramos Electronically Signed By: CHERELLE WILLOUGHBY MD
[2024-09-04 15:31] LABS: MANUAL DIFF FLAG NO
[2024-09-04 15:32] LABS: Basophils Absolute Auto 0.1 X10*3/uL (0.0-0.2); Basophils Percent Auto 0.7 % (0-2); Eosinophils Absolute Auto 0.1 X10*3/uL (0.0-0.4); Eosinophils Percent Auto 1.1 % (0-4); Hematocrit 33.9 % (42.0-52.0); Hemoglobin 11.4 g/dl (14.0-18.0); Imm Gran Abs Auto 0.02 X10*3/uL (0.00-0.03); Imm Gran Pct Auto 0.3 % (0.0-0.4); Lymphocytes Absolute Auto 1.2 X10*3/uL (1.2-4.9); Lymphocytes Percent Auto 17.2 % (20-40); Mean Corpuscular HGB Conc 33.6 g/dl (31.0-36.0); Mean Corpuscular Volume 92.1 fL (80.0-98.0); Mean Platelet Volume 11.3 fL (9.4-12.4); Monocytes Absolute Auto 0.6 X10*3/uL (0.1-1.2); Monocytes Percent Auto 8.1 % (2-11); Neutrophils Absolute Auto 5.2 x10*3/uL (2.0-8.3); Neutrophils Percent Auto 72.6 % (45-73); Platelet Count 198 X10*3/uL (160-400); Red Blood Count 3.68 X10*6/uL (4.60-5.80); White Blood Count 7.2 X10*3/uL (4.8-10.8)
[2024-09-04 15:51] LABS: Lactic Acid 3.6 mmol/L (0.5-2.0)
[2024-09-04 16:00] LABS: Alanine Aminotransferase 11 U/L (0-40); Albumin Level 2.8 g/dL (3.5-5.0); Alkaline Phosphatase 79 U/L (39-117); Anion Gap 17 (12-20); Aspartate Amino Transferase 45 U/L (5-37); Bilirubin Total 2.3 mg/dL (0.0-1.0); Blood Urea Nitrogen 20 mg/dL (9-16); Calcium 9.2 mg/dL (8.4-10.2); Carbon Dioxide 27 mmol/L (22-29); Chloride 93 mmol/L (96-108); Creatinine Clr Calc Pharmacy 127.9; Estimated Glomerular Filt Rate > 60; Glucose Random 218 mg/dL (60-115); Lipase 22 U/L (8-78); Magnesium 1.3 mg/dL (1.6-2.6); Potassium 3.4 mmol/L (3.3-5.1); Sodium 134 mmol/L (135-145); Total Protein 7.5 g/dL (6.5-8.0)
[2024-09-04 16:32] LABS: Influenza A PCR NEGATIVE (Negative); Influenza B PCR NEGATIVE (Negative); Resp Syncy Virus RNA Qual PCR NEGATIVE (Negative); SARS COV2 PCR INHOUSE NEGATIVE (Negative)
--- OUTSIDE RECORDS SUMMARY | 2024-09-04 17:04 | XMS_ITS | Data Portability ---
Author Organization [place] - [employer] [facility] Address [address] [place] [address] Assessment No assessment recorded. Plan of Treatment Reminders Order Date Submit Date Provider Last Modified By Organization Details Last Modified Time Details Appointments None recorded. Lab None recorded. Referral None recorded. Procedures None recorded. Surgeries None recorded. Imaging None recorded. Medication Orders cyclobenzap rine 10 mg tablet 2024 [facility] #[id number], [phone] [place], [address], 17:38:34 lidocaine 5 % topical patch 2024 025 [facility] #[id number], [phone] [place], [address], 17:41:20 Patient TargetsNo targets recorded. Patient Instructions Encounter Date Encounter Id Patient Instructions Last Modified By Organization Details Last Modified Time 07/18/2024 [id number] sciatica: exercises [email or web address] Not available 07/18/2024 17:38:32 Reason for Referral None Reported. Problems No Known Problems Medical Equipment None Reported. Allergies No known drug allergies Medications Name Sig Start Date Stop Date Status Note LastModified by Organization Details LastModified Time cyclobenzap rine 10 mg tablet Take 1 tablet 3 times a day by oral route as needed, for muscle spasm. 2024 active Not Available Not Available Not Avai lable promethazin e 6.25 mg/5 mL oral syrup 06/26 completed Not Available Not Available Not Available prednisone 20 mg tablet 09/30 completed Not Available Not Available Not Available lidocaine 5 % topical patch APPLY 1 PATCH BY TOPICAL ROUTE ONCE DAILY on back (MAY WEAR UP TO 12 HOURS.) 2024 active Not Available Not Available Not Avai lable ipratropium bromide 42 mcg (0.06 %) nasal spray active Not Available Not Available Not Available amoxicillin 875 mg-potduncanu m clavulanate 125 mg tablet 09/30 completed Not Available Not Available Not Available aspirin as needed for pain 09/13 completed Not Available Not Available Not Available Mucinex 06/26 completed Not Available Not Available Not Available UNLISTED MEDICATION [Migrated medicatio n name:] Paxlovid 300 mg (150 mg x 2)-100 mg tablets in a dose pack (EUA)::0 active Not Available Not Available No t Available UNLISTED MEDICATION [Migrated medicatio n name:] Benzonata te 100 mg capsule:: 0 09/30 completed Not Available Not Available Not Available UNLISTED MEDICATION [Migrated medicatio n name:] Benzonata te 200 mg capsule:: 0 active Not Available Not Available No t Available UNLISTED MEDICATION [Migrated medicatio n name:] Paxlovid (EUA) 150 mg x 2-100 mg tablet::0 06/26 completed Not Available Not Available Not Available Vitals None Recorded Social History None recorded. Functional Status None recorded. Mental Status None recorded. Family History Nothing Reported. Medical History No medical history recorded. Past Encounters Encounter ID Performer Location Encounter Start Date Encounter Closed Date Diagnosis/Indication Diagnosis SNOMED-CT Code Diagnosis ICD10 Code Diagnosis Note [id number] Carito Stevenson DO [address] [id number] 07/18/2024 17:26:27 07/18/2024 17:46:35 Acute back pain with sciatica 743728422 M54.42 Discussed differenti al diagnosis including strain or sprain. Discussed signs and symptoms of serious diagnosis including disc herniation and fx. Suggest NSAIDs. Discussed SE of meds including drowsiness and GI upset. Suggest cool and/or warm compresses . Suggest not to lift. Discussed home exercises and stretches. Discussed possible further tests in the future including xrays. Diagnosis and treatment plan discussed with pt using shared decision making. Patient acknowledg es, understand s, and intends to be compliant. Follow up with PCP in 5 days or sooner if any concerns. Go to an Urgent Care immediatel y if your symptoms worsen or if you develop new symptoms that concern you. Answered all ques Health Concerns Section Related Observation LastModified by Organization Detai ls LastModified Time None Recorded Concern Status LastModified by Organization Details LastModified Time None Recorded Advance Directives Directive None Recorded Payers Insurance Date Sequence Insurance Name Policy Number Policy Jacques Covered Member ID Jacques Member ID Guarantor Name 07/18/2024 1 *SELF PAY* Luisa malgorzata Alves 07/18/2024 1 *SELF PAY* Martin Joselyn [employer] Salazar Joselyn Notes Date Note Type Note Provider Name and Address Organization Details Recorded Time 07/18/2024 text/html 58 y.o. male presents with low back pain. Pain is constant, sharp, 6-7/10, worse with movement, and radiating to L knee. Pt is taking aspirin and tylenol with little relief. Pt was moving plants. Pt felt it the next day. No fall or injury. No numbness or tingling. BM and urination wnl. Duration 3 days. Overall symptoms are the same. No hx of back abnormalities. Carito Stevenson, DO [address] [facility] [address], [place], [address], [place] [facility] 07/18/2024 17:41:38
[2024-09-04 17:27] LABS: Reflex Lactate? Lactic Acid Added
[2024-09-04 18:07] LABS: ~Lactic Acid-LAB USE ONLY 3.6 mmol/L (0.5-2.0)
[2024-09-04] MEDS: 0.9 % Sodium Chloride 3,674.1 ML 3674.1 ML IV (18:28)
[2024-09-04] MEDS: cefTRIAXone sodium 2 GM VIAL IVPUSH (18:28)
[2024-09-04] MEDS: Magnesium Sulfate/H2O 2 GM/50 ML PIGGYBACK IV (18:35)
[2024-09-04 18:59] VITALS: BP 129/66; PULSE 84; RESP 18; TEMP 36.6; O2SAT 96
[2024-09-04 19:36] VITALS: BP 120/60; PULSE 82; RESP 21; O2SAT 96
[2024-09-04] MEDS: Morphine Sulfate 4 MG/ML CARTRIDGE IVPUSH (19:45)
[2024-09-04 19:46] VITALS: BP 114/59
[2024-09-04 19:47] LABS: Reflex Lactate? 2 Y
[2024-09-04 20:08] VITALS: BP 102/51; PULSE 81; RESP 15; O2SAT 95
[2024-09-04 20:33] LABS: Appearance Urine Clear; Color Urine Yellow; Glucose Urine UA Negative (Negative); Leukocyte Esterase Urine Negative (Negative); Nitrite Urine Negative (Negative); Specific Gravity - Urine <= 1.005 (1.005-1.025); Urine Blood Negative (Negative); Urine Ketones Negative (Negative); Urine Protein Negative (Neg-Trace)
[2024-09-04 20:38] LABS: Bacteria Urine None Seen (None Seen); Hyaline Casts Urine 0-2 /LPF (0-2); RBC Urine 0-2 /HPF (0-2); Squamous Epithelial Cell Urine 0-2 /HPF (0-2); WBC Urine 0-5 /HPF (0-5)
[2024-09-04 20:49] LABS: ~Lactic Acid-LAB USE ONLY 2.5 mmol/L (0.5-2.0)
[2024-09-04] MEDS: Magnesium Oxide 400 MG TABLET 800 MG PO (22:21)
[2024-09-04] MEDS: Albumin Human 25 % 100 ML 133.33 ML IV ×2 (22:22→23:47)
[2024-09-04 23:46] VITALS: BP 108/52; PULSE 78; RESP 16; TEMP 36.8; O2SAT 96
[2024-09-05] VITALS (10 sets, daily range): BP systolic 87–124; BP diastolic 24–75; PULSE 77–96; RESP 14–18; TEMP 36.6–37.1; O2SAT 95–98; BMI 39.6
[2024-09-05] MEDS: Enoxaparin Sodium 40 MG/0.4 ML SYRINGE SUBCUT (01:07)
--- NOTE | 2024-09-05 01:07 | PM.IMHP ---
History of Present Illness Date of Service: 09/05/24 Attending physician on admission: Elroy Carrero Chief Complaint: weakness Patient is a 58-year-old male with past medical history recently diagnosed diabetes type 2, history of stage IV non-Hodgkin's lymphoma currently in remission diagnosed 2013, neuropathy secondary to cancer treatment, vitamin-D deficiency, erectile dysfunction, chronic low back pain, Davis, cirrhosis, and recent admission to [facility] for strep bacteremia with extensive workup for issues related to jaundice and hyperbilirubinemia including an MRCP presents to the emergency department after 2 days of a total of 3 near syncopal episodes. In addition patient states he was jaundice yesterday. That jaundice is currently resolved. Patient reports a long recovery status post admission to [facility] for strep bacteremia. Patient was then in rehabilitation with a midline completing IV antibiotics as there were no oral antibiotic alternatives. Patient normally works from home but since returning from rehab, patient has continued with ongoing weakness and what he describes as dizziness, visual fog, and all-over body twitching upon change in position from sitting to standing. Symptoms would resolve in minutes or sooner if pt sat back down. Patient denies any loss of consciousness or cognitive issues. Patient has not incurred any injuries with any of these episodes. Patient denies any loss of bowel or bladder function. Patient states he believes his cognition is intact and denies any recent memory loss. Patient states he is not currently receiving physical therapy at home. Patient's sister was diagnosed with Gwendolyn Howe syndrome approximately 30 years prior. Prior to patient's illness patient was traveling in [place] for a 3 day work-related trip in June of 2024. Currently, pt has not been able to resume usual activities of daily life including driving and leaving the house. Patient did present with a lactate of 3.6 and after IV fluids, lactate trending down to 2.5. The ED did start patient on ceftriaxone. Blood cultures pending. Patient's blood sugar was 218. Sodium 134. Renal function within normal limits. Magnesium 1.3 and patient received 2 g of magnesium IV and oral magnesium. Patient's total bilirubin 2.3. Last known Tbili was 4.[address] [facility] during most recent admission. AST 45, ALT 11. Lipase 22. Incidentally, left knee x-ray indicates moderate knee joint effusion. Will check sed rate and CRP and have orthopedics review. In the emergency room, patient was treated with IV morphine for his pain in his lower back that radiates to both legs. Left leg is worse than the right leg. Patient denies any history of sciatica. Patient states he was prescribed Flexeril approximately 3 weeks ago and this has helped his symptoms overall. Regarding patient's neuro exam, the only deficiency was inability to push up against examiner's hand in both shins, otherwise neuro exam unremarkable. Patient recently told he has diabetes and was started on low-dose metformin. Patient does not check his blood sugars at home. BG elevated in ED. Patient denies any alcohol use, tobacco use or marijuana use. Records from [facility] were requested via ED staff. Review of Systems Review of Systems: Patient currently denying any chest pain, shortness breath at rest or with exertion. Patient is not having any issues with constipation or diarrhea. Patient reports issues with his low back pain that radiates to both legs, left leg is worse than the right. Patient denies history of sciatica. Patient describes himself as being jaundice yesterday. Denied any nausea or vomiting associated with that. Yes all other systems are reviewed and are negative [facility] Medical History (Updated 09/05/24 @ 02:31 by KEV Samuels-MICHAELA) Stomach ulcer Stage Lola non-Hodgkin lymphoma Neuropathy Erectile dysfunction Diabetes mellitus Thrombocytopenia Low vitamin D level Hypercholesterolemia Gait instability Cirrhosis Jaundice DAVIS (nonalcoholic steatohepatitis) Cognitive capacity: Alert and orientated x3 Functional capacity: uses cane/walker Surgical History History of hernia repair History of shoulder surgery Social History (Updated 09/05/24 @ 02:31 by AVI Samuels) Household Members: Spouse Housing: House Are you a primary customer care representative to a significant other at home: No Do you presently have visiting nurse or other home services: Yes Alcohol intake: never Patient Tobacco Use Status: Never used Tobacco Tobacco use type: Cigarette e-Cigarette/Vaping Use: Never Used Second Hand Smoke Exposure: No Advance Directives: Yes Advance Directives on File: Yes Advance Directives Date on File: 09/04/24 Do you have a plan to hurt others: No Plan service: Yes Current occupational status: employed 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 Current occupational exposures/hazards: No Cognitive needs: No Hearing needs: No Vision needs: No Ebola Risk: Travel/Contact With Anyone From Affected Area/s: No Has Patient Experienced Ebola Symptoms: No Meds Allergies Allergy/AdvReac Type Severity Reaction Status Date / Time No Known Allergies Allergy Verified 09/04/24 15:05 Active Medications: Current Medications Acetaminophen (Acetaminophen 325 Mg Tablet) 650 mg PO Q6H PRN PRN Reason: Pain, Mild 1-3,fever,headache Albuterol/Ipratropium (Albuterol/Iprat 2.5/0.5mg 3 Ml Ampul.Neb) 3 ml INHALE Q4H PRN PRN Reason: Shortness of Breath/Wheezing Calcium Carbonate (Calcium Carbonate 750 Mg Tab.Chew) 750 mg PO Q4H PRN PRN Reason: Heartburn Dextrose (Dextrose 50 % 25 Gm/50 Ml Syringe) 25 gm IVPUSH Q15M PRN; Protocol PRN Reason: per Hypoglycemia Standing Ord. Enoxaparin Sodium (Enoxaparin Sodium 40 Mg/0.4 Ml Syringe) 40 mg SUBCUT Q24H MARTHA Glucose (Glucose Gel 15 Gm Gel..Gram.) 15 gm PO Q15M PRN; Protocol PRN Reason: per Hypoglycemia Standing Ord. Insulin Human Lispro (Insulin Lispro 100 Unit/Ml 3 Ml Vial) 0 unit SUBCUT QIDACHS [facility]; Protocol Magnesium Hydroxide (Milk Of Magnesia 30 Ml Oral.Susp) 30 ml PO DAILY PRN PRN Reason: Constipation Melatonin (Melatonin 3 Mg Tablet) 6 mg PO BEDTIME PRN PRN Reason: Insomnia Ondansetron HCl (Ondansetron Hcl 4 Mg/2 Ml Vial) 4 mg IVPUSH Q8H PRN PRN Reason: Nausea and Vomiting Polyethylene Glycol (Polyethylene Glycol 3350 17 Gm Powd.Pack) 17 gm PO DAILY PRN PRN Reason: Constipation Senna (Sennosides 8.6 Mg Tablet) 17.2 mg PO BEDTIME MARTHA Sodium Chloride (0.9 % Sodium Chloride Flush 3 Ml Syringe) 3 ml IVFLUSH QSHIFT [facility] Home Medications ?Medication ?Instructions ?Recorded ?Confirmed ?Last Taken ?Type aspirin 81 mg tablet,delayed 81 mg PO DAILY 06/08/24 07/06/24 Unknown History release Physical Exam Vital Signs and Narrative: Vital Signs: Last Vital Signs Temp 98.3 F 09/04/24 23:46 Pulse 78 09/04/24 23:46 Resp 16 09/04/24 23:46 BP 108/52 L 09/04/24 23:46 Pulse Ox 96 09/04/24 23:46 O2 Del Method Room Air 09/04/24 23:46 BMI result Body Mass Index 36.6 Alert and orientated X3, able to give good history. Neuro: CN II-X11 intact, strength in BLE's 2/5, otherwise WNL in all other areas, visual acuity intact EYES: PERRLA, EOM intact, sclerae nonicteric, conjunctiva pink ENT: hearing intact, no issues with swallowing, uvula midline, lips moist, nares patent no epistaxis Cardiac: S1 S2 RRR, no murmur, no JVD, no edema in Lower ext Pulmonary: lungs clear to auscultation B Abdominal: BS active in all 4 quadrants, no guarding, tenderness, rebounding, obese, abdomen soft MSK: strength 5/5 upper extremities , 2/5 jama area, otherwise WNL Left knee effusion noted on Xray, mild swelling, mild warmth noted left knee, pt has good ROM : no CVA tenderness no bladder distension Extremities: no edema in lower extremities, PT and DP pulses palpable +2 Psych: mood stable, judgement and insight good Results Labs 09/04/24 15:23 09/04/24 15:23 Labs: Laboratory Results - last 24 hr 09/04/24 09/04/24 09/04/24 15:23 17:43 20:09 MCV 92.1 MCH 31.0 MCHC 33.6 RDW 14.0 Plt Count 198 D MPV 11.3 Immature Gran % (Auto) 0.3 Neut % (Auto) 72.6 Lymph % (Auto) 17.2 L [place] % (Auto) 8.1 Eos % (Auto) 1.1 Baso % (Auto) 0.7 Lymph # (Auto) 1.2 [place] # (Auto) 0.6 Eos # (Auto) 0.1 Baso # (Auto) 0.1 Abs Immat Gran (auto) 0.02 Absolute Neuts (auto) 5.2 Absolute Nucleated RBC 0.000 Nucleated RBC % (auto) 0.0 Anion Gap 17 Estim Creat Clear Calc 127.9 Estimated GFR > 60 Random Glucose 218 H Lactic Acid 3.6 H* Lactic Acid F/U @ 2Hr 3.6 H* Lactic Acid F/U @ 4Hr 2.5 H* Calcium 9.2 Magnesium 1.3 L* Total Bilirubin 2.3 H AST 45 H ALT 11 Alkaline Phosphatase 79 Total Protein 7.5 Albumin 2.8 L Lipase 22 Urine Color Yellow Urine Appearance Clear Urine pH 6.0 Ur Specific [place] <= 1.005 Urine Protein Negative Urine Glucose (UA) Negative Urine Ketones Negative Urine Blood Negative Urine Nitrite Negative Ur Leukocyte Esterase Negative Urine RBC 0-2 Urine WBC 0-5 Ur Squamous Epith Cells 0-2 Urine Bacteria None Seen Hyaline Casts 0-2 Influenza Type A (PCR) NEGATIVE Influenza Type B (PCR) NEGATIVE RSV RNA Qual (PCR) NEGATIVE SARS-CoV-2 RNA (RT-PCR) NEGATIVE ECG Attestation: I personally reviewed and interpreted this ECG as follows: (NSR) Prior ECG tracings: available for review Imaging Radiologist's Impressions: Impressions Chest X-Ray 09/04/24 14:31 IMPRESSION: Clear lungs. 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 Patient was admitted at [facility] and then attended rehabilitation. In addition patient noted to have incidentally a left knee moderate effusion. Near-syncope -Echo ordered -Check orthostatics Q shift x3 -Telemetry -Cardiology consultation -TEDS Weakness -Checking vitamin B12 and folate -Neurology consulted -Sister has history of Gwendolyn Howe syndrome -PT evaluation -Suspect this may be secondary to recovery from recent hospitalization for sepsis/bacteremia with component of chronic low back pain and possible new sciatica. Patient is not currently receiving physical therapy in the home setting. -Await recommendations from Neurology prior to ordering additional diagnostics including CT of the lower spine Lactic acidosis -Lactate 3.6, after IV fluid currently trending down to 2.5. -Blood cultures pending -Noted moderate left knee effusion, patient is started on Ancef -UA negative -Chest x-ray negative for pneumonia or infectious process -Patient remains afebrile, vital signs stable -Patient does not currently meet the criteria for sepsis Hypomagnesemia -Magnesium 1.3 on admission -Patient received 2 g IV magnesium and oral magnesium -Magnesium level daily -Telemetry Moderate left knee effusion (was Mild at [facility], pt was seen by ortho then) -Incidental finding via left knee x-ray done in the ED -Orthopedics consulted -Patient is started on Ancef -CRP and ESR pending DAVIS/ Cirrhosis/ Elevated Bilirubin -LFTs stable -Will check ammonia level to ensure within normal limits -Avoid hepatotoxic meds -Holding off on GI consultation as total bilirubin is trending down since admission to [facility] -Records from [facility] requested as patient underwent an MRCP while there Chronic low back pain -Morphine IV effective -Flexeril ordered -PT evaluation ordered Diabetes mellitus type 2 [id number] -Sliding scale insulin -Diabetic diet DVT prophylaxis: Lovenox PPI prophylaxis: Protonix MED REC PENDING Full Code status Quality Stroke Does the patient have a stroke diagnosis?: No Reason for No Anti-thrombotic by Day Two: N/A - Med Ordered VTE Prior VTE?: No VTE Risk Level:: Medical - moderate - high VTE Device Contraindication: N/A - Device Ordered VTE Drug Contraindication: N/A - Med Ordered
[2024-09-05] MEDS: Cyclobenzaprine HCl 10 MG TABLET PO (02:31)
[2024-09-05] MEDS: ceFAZolin Sodium 1 GM VIAL IVPUSH ×3 (03:44→18:48)
[2024-09-05 05:37] LABS: MANUAL DIFF FLAG NO
[2024-09-05 05:51] LABS: Basophils Percent Auto 0.7 % (0-2); Eosinophils Absolute Auto 0.1 X10*3/uL (0.0-0.4); Hematocrit 30.8 % (42.0-52.0); Hemoglobin 10.2 g/dl (14.0-18.0); Imm Gran Abs Auto 0.01 X10*3/uL (0.00-0.03); Imm Gran Pct Auto 0.2 % (0.0-0.4); Lymphocytes Absolute Auto 1.5 X10*3/uL (1.2-4.9); Lymphocytes Percent Auto 27.8 % (20-40); Mean Corpuscular HGB Conc 33.1 g/dl (31.0-36.0); Mean Corpuscular Hemoglobin 30.3 pg (27.0-33.0); Mean Corpuscular Volume 91.4 fL (80.0-98.0); Mean Platelet Volume 11.1 fL (9.4-12.4); Monocytes Absolute Auto 0.6 X10*3/uL (0.1-1.2); Monocytes Percent Auto 10.6 % (2-11); Neutrophils Absolute Auto 3.2 x10*3/uL (2.0-8.3); Neutrophils Percent Auto 58.7 % (45-73); Platelet Count 157 X10*3/uL (160-400); Red Blood Count 3.37 X10*6/uL (4.60-5.80); Red Cell Distribution Width 14.1 % (11.0-16.0); White Blood Count 5.5 X10*3/uL (4.8-10.8)
[2024-09-05 06:03] LABS: Ammonia 66 umol/L (13-55)
[2024-09-05 06:05] LABS: Alanine Aminotransferase 9 U/L (0-40); Albumin Level 2.9 g/dL (3.5-5.0); Alkaline Phosphatase 68 U/L (39-117); Anion Gap 15 (12-20); Aspartate Amino Transferase 36 U/L (5-37); Bilirubin Total 1.8 mg/dL (0.0-1.0); Blood Urea Nitrogen 18 mg/dL (9-16); Calcium 8.4 mg/dL (8.4-10.2); Carbon Dioxide 26 mmol/L (22-29); Chloride 97 mmol/L (96-108); Cholesterol 126 mg/dL (<200); Creatinine Clr Calc Pharmacy 153.8; Estimated Glomerular Filt Rate > 60; Glucose Random 245 mg/dL (60-115); HDL Cholesterol 18 mg/dL (>40); LDL Cholesterol Calculated 92 mg/dL (<100); Magnesium 1.6 mg/dL (1.6-2.6); Potassium 2.9 mmol/L (3.3-5.1); Sodium 135 mmol/L (135-145); Total Protein 6.5 g/dL (6.5-8.0); Triglycerides 83 mg/dL (<150)
[2024-09-05 06:21] LABS: C Reactive Protein 7.67 mg/dL (< or = 0.50); TSH reflex Free T4 1.72 uIU/mL (0.32-4.0)
[2024-09-05] MEDS: Potassium Chloride ER 20 MEQ TAB.ER.PRT 40 MEQ PO (06:30)
[2024-09-05 06:35] LABS: Folate 7.9 ng/mL (> or = 4.0); Vitamin B12 955 pg/mL (200-900)
[2024-09-05 06:48] LABS: Erythrocyte Sedimentation Rate 102 MM/HR (0-15)
--- NOTE | 2024-09-05 07:00 | CA_ITS ---
Transthoracic Echocardiogram Patient (Last, First, Middle): Martin Alves, Gender: Male Date of : 1965 Age: 58 Procedure Date: 09/05/2024 Procedure Type: Transthoracic Echocardiogram Location: S3E Height: 182.88 cm Weight: 122.47 kg BSA: 2.42 m2 Heart Rate: 76 bpm BP: 109 / 56 mmHg Social Work Program Coordinator: RAMONA Mathew MD: Nilsa Mendoza [facility]- [employer]: Neal Will MD Symptoms: near syncope Study Quality: Fair w/Contrast ECG Rhythm: Arrhythmia Conclusions: - 1. Normal LV ejection fraction of 65-70% 2. Normal cardiac valvular Dopplers Findings Procedure Information Contrast agent, definity, is being given per protocol without apparent complications. Left Ventricle Normal left ventricular size, thickness, and systolic function. The visually estimated ejection fraction is between 65-70%. There is no evidence of regional wall motion abnormalities. Spectral Doppler is indicative of a normal filling pattern. Right Ventricle The right ventricle was not well visualized. There is normal right ventricular systolic function. Atria The left atrium is normal in size. There is no evidence of interatrial shunt. The right atrium was not well visualized. Aortic Valve The aortic valve was not well visualized. There is mild calcification of the aortic valve. There is no aortic valve stenosis. There is no aortic valve regurgitation. Mitral Valve The mitral valve was not well visualized. There is trace mitral valve regurgitation. There is no mitral valve stenosis. Pulmonic Valve The pulmonic valve was not well visualized. Tricuspid Valve The tricuspid valve was not well visualized. Tricuspid regurgitation envelope is inadequate for calculation of right ventricular systolic pressure. Normal right atrial pressure. Great Vessels The aorta was not well visualized. The pulmonary artery was not well visualized. Venous The inferior vena cava is normal in size and collapses greater than 50% with inspiration. Pericardium/Pleural The pericardium was not well visualized. Prior Study Comparison No prior study available for comparison. Measurements 2D Linear Measurements IVSd: 1.07 0.6-0.9/0.6-1.0 cm LVIDd: 5.02 3.9-5.3/4.2-5.9 cm LVIDd Index: 2.07 2.4-3.2/2.2-3.1 cm/m2 LVIDs: 3.39 2.0-3.6 cm LVPWd: 0.88 0.7-1.1 cm LA Diam: 4.30 2.7-3.8/3.0-4.0 cm LAIDs Index: 1.78 1.5-2.3 cm/m2 LV Mass: 220.44 67-162/88-224 g LV Mass Index: 91.09 43-95/49-115 g/m2 LVOT Diam: 2.10 3.0+(-)1.3 cm 2D Systolic Function EF 4C: 65.90 >55% EF 2C: 70.30 >55% EF BiP: 68.20 >55% Mitral Valve MV Pk E: 0.85 MV PK A: 0.87 MV Decel Time: 185.00 E/A: 1.00 E'Lateral: 9.57 E'Medial: 8.49 E/E' Med: 10.00 E/E' Lat: 8.90 PHT: 54.00 MVA PHT: 4.07 Decel [place]: 4.59 Aortic Valve AoV Pk Quan: 1.96 AoV Mn Quan: 1.38 AoV VTI: 0.40 AoV Pk Grad: 15.00 Aov Mn Grad: 9.00 GEOFFREY Cont.VTI: 2.65 LVOT LVOT Pk Quan: 1.61 LVOT Mn Quan: 1.02 LVOT VTI: 0.31 LVOT Pk Grad: 10.00 LVOT Mn Grad: 5.00 LVOT Diam: 2.10 LVOT Area: 3.46 Diastolic Function MV Pk E: 0.85 MV Pk A: 0.87 E/A: 1.00 E'Medial: 8.49 E/E' Med: 10.00 E' Laterial: 9.57 E/E' Lat: 8.90 Right Ventricle TAPSE (mm): 27.00 TVS' Quan: 16.50 Tricuspid Valve RA Press: 3.00 Great Vessels Aorta Sinus of Valsalva: 3.50 2.0-3.5 cm Ao Asc: 3.20 2.1-3.4 cm Ao Arch: 2.70 Updated in Other Vendor System with Status of Final Neal Will MD electronically signed on 09/05/2024 4:20:31 PM with status of Final
[2024-09-05 07:09] LABS: Estimated Average Glucose 154 mg/dL; Hemoglobin A1C 148.8373 umol/L; Total Hemoglobin (HGBA1C) 2784.7715 umol/L
[2024-09-05 07:25] LABS: Glucose, Whole Blood 264 mg/dL (60-115)
--- NOTE | 2024-09-05 07:42 | PM.CNOR ---
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 He was DC to a rehab and upon returning back home he continued to have generalize weakness. He was admitted to the medical service for furtherwork but subsequently c/o left knee pain and swelling. Xrays in the ED suggested effusion with mild OA Patient states the left knee was asp in [facility] Ed and they were unable to obtain any fluid. He denies recent injury to the left knee. He states he does have diff bending the left knee. he states he has had previous inj/asp in the left knee several years ago. Review of Systems Review of Systems: Yes all other systems are reviewed and are negative PMFSH Past Medical History Medical History (Updated 09/05/24 @ 07:42 by Eloy Philip PA-C) Stomach ulcer Stage Lola non-Hodgkin lymphoma Neuropathy Erectile dysfunction Diabetes mellitus Thrombocytopenia Low vitamin D level Hypercholesterolemia Gait instability Cirrhosis Jaundice RIVERA (nonalcoholic steatohepatitis) Surgical History Surgical History History of hernia repair History of shoulder surgery Social History Social History (Updated 09/05/24 @ 02:31 by AVI Samuels) Household Members: Spouse Housing: House Are you a primary urgent care technician to a significant other at home: No Do you presently have visiting nurse or other home services: Yes Alcohol intake: never Patient Tobacco Use Status: Never used Tobacco Tobacco use type: Cigarette e-Cigarette/Vaping Use: Never Used Second Hand Smoke Exposure: No Advance Directives: Yes Advance Directives on File: Yes Advance Directives Date on File: 09/04/24 Do you have a plan to hurt others: No Plan service: Yes Current occupational status: employed 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 Current occupational exposures/hazards: No Cognitive needs: No Hearing needs: No Vision needs: No Travel History Ebola Risk: Travel/Contact With Anyone From Affected Area/s: No Has Patient Experienced Ebola Symptoms: No Meds Allergies Allergy/AdvReac Type Severity Reaction Status Date / Time No Known Allergies Allergy Verified 09/04/24 15:05 Active Medications: Current Medications Acetaminophen (Acetaminophen 325 Mg Tablet) 650 mg PO Q6H PRN PRN Reason: Pain, Mild 1-3,fever,headache Albuterol/Ipratropium (Albuterol/Iprat 2.5/0.5mg 3 Ml Ampul.Neb) 3 ml INHALE Q4H PRN PRN Reason: Shortness of Breath/Wheezing Calcium Carbonate (Calcium Carbonate 750 Mg Tab.Chew) 750 mg PO Q4H PRN PRN Reason: Heartburn Cefazolin Sodium (Cefazolin Sodium 1 Gm Vial) 1 gm IVPUSH Q8H [facility] Last Admin: 09/05/24 03:44 Dose: 1 gm Cyclobenzaprine HCl (Cyclobenzaprine Hcl 10 Mg Tablet) 10 mg PO TID PRN PRN Reason: Muscle Spasm Last Admin: 09/05/24 02:31 Dose: 10 mg Dextrose (Dextrose 50 % 25 Gm/50 Ml Syringe) 25 gm IVPUSH Q15M PRN; Protocol PRN Reason: per Hypoglycemia Standing Ord. Enoxaparin Sodium (Enoxaparin Sodium 40 Mg/0.4 Ml Syringe) 40 mg SUBCUT Q24H [facility] Last Admin: 09/05/24 01:07 Dose: 40 mg Glucose (Glucose Gel 15 Gm Gel..Gram.) 15 gm PO Q15M PRN; Protocol PRN Reason: per Hypoglycemia Standing Ord. Insulin Human Lispro (Insulin Lispro 100 Unit/Ml 3 Ml Vial) 0 unit SUBCUT QIDACHS [facility]; Protocol Magnesium Hydroxide (Milk Of Magnesia 30 Ml Oral.Susp) 30 ml PO DAILY PRN PRN Reason: Constipation Melatonin (Melatonin 3 Mg Tablet) 6 mg PO BEDTIME PRN PRN Reason: Insomnia Morphine Sulfate (Morphine Sulfate 2 Mg/Ml Cartridge) 2 mg IVPUSH Q3H PRN; Protocol PRN Reason: Pain, Severe (Pain Scale 7-10) Ondansetron HCl (Ondansetron Hcl 4 Mg/2 Ml Vial) 4 mg IVPUSH Q8H PRN PRN Reason: Nausea and Vomiting Polyethylene Glycol (Polyethylene Glycol 3350 17 Gm Powd.Pack) 17 gm PO DAILY PRN PRN Reason: Constipation Potassium Chloride (Potassium Chloride Er 20 Meq Tab.Er.Prt) 20 meq PO DAILY [facility] Senna (Sennosides 8.6 Mg Tablet) 17.2 mg PO BEDTIME MARTHA Sodium Chloride (0.9 % Sodium Chloride Flush 3 Ml Syringe) 3 ml IVFLUSH QSHIFT [facility] Home Medications ?Medication ?Instructions ?Recorded ?Confirmed ?Last Taken ?Type aspirin 81 mg tablet,delayed 81 mg PO DAILY 06/08/24 07/06/24 Unknown History release bumetanide 1 mg tablet 1 mg PO DAILY 09/05/24 Unknown History carvedilol 6.25 mg tablet 6.25 mg PO BID 09/05/24 Unknown History cyclobenzaprine 10 mg tablet 10 mg PO TID 09/05/24 Unknown History spironolactone 50 mg tablet 50 mg PO DAILY 09/05/24 Unknown History Physical Exam Vital Signs: Vital Signs: Last Vital Signs Temp 98.3 F 09/04/24 23:46 Pulse 89 09/05/24 06:35 Resp 14 09/05/24 02:11 BP 87/24 L 09/05/24 06:35 Pulse Ox 98 09/05/24 02:11 O2 Del Method Room Air 09/05/24 02:11 BMI result Body Mass Index 36.6 Const: General: cooperative and no acute distress Orientation/consciousness: patient oriented x3 Resp: Effort & Inspection: normal respiratory effort and able to speak in complete sentences Cardio: Peripheral pulses: Peripheral pulses 2+ throughout Neuro: General: patient oriented x3 Extrem: Other: Left knee without redness or warmth Trace joint effusion He has pain with attempting ROM NVI Results Labs 09/05/24 05:11 09/05/24 05:11 Labs: Abnormal lab results 09/04/24 09/04/24 09/04/24 Range/Units 15:23 17:43 20:09 RBC 3.68 L (4.60-5.80) X10*6/uL Hgb 11.4 L (14.0-18.0) g/dl Hct 33.9 L (42.0-52.0) % Plt Count (160-400) X10*3/uL Lymph % (Auto) 17.2 L (20-40) % ESR (0-15) MM/HR Sodium 134 L (135-145) mmol/L Potassium (3.3-5.1) mmol/L Chloride 93 L (96-108) mmol/L BUN 20 H (9-16) mg/dL POC Glucose (60-115) mg/dL Random Glucose 218 H (60-115) mg/dL Hemoglobin A1c % (<6.0) % Lactic Acid 3.6 H* (0.5-2.0) mmol/L Lactic Acid F/U @ 2Hr 3.6 H* (0.5-2.0) mmol/L Lactic Acid F/U @ 4Hr 2.5 H* (0.5-2.0) mmol/L Magnesium 1.3 L* (1.6-2.6) mg/dL Total Bilirubin 2.3 H (0.0-1.0) mg/dL AST 45 H (5-37) U/L Ammonia (13-55) umol/L C-Reactive Protein (< or = 0.50) mg/dL Albumin 2.8 L (3.5-5.0) g/dL HDL Cholesterol (>40) mg/dL Vitamin B12 (200-900) pg/mL 09/05/24 09/05/24 Range/Units 05:11 07:22 RBC 3.37 L (4.60-5.80) X10*6/uL Hgb 10.2 L (14.0-18.0) g/dl Hct 30.8 L (42.0-52.0) % Plt Count 157 L (160-400) X10*3/uL Lymph % (Auto) (20-40) % ESR 102 H (0-15) MM/HR Sodium (135-145) mmol/L Potassium 2.9 L* (3.3-5.1) mmol/L Chloride (96-108) mmol/L BUN 18 H (9-16) mg/dL POC Glucose 264 H (60-115) mg/dL Random Glucose 245 H (60-115) mg/dL Hemoglobin A1c % 7.0 H (<6.0) % Lactic Acid (0.5-2.0) mmol/L Lactic Acid F/U @ 2Hr (0.5-2.0) mmol/L Lactic Acid F/U @ 4Hr (0.5-2.0) mmol/L Magnesium (1.6-2.6) mg/dL Total Bilirubin 1.8 H (0.0-1.0) mg/dL AST (5-37) U/L Ammonia 66 H (13-55) umol/L C-Reactive Protein 7.67 H (< or = 0.50) mg/dL Albumin 2.9 L (3.5-5.0) g/dL HDL Cholesterol 18 L (>40) mg/dL Vitamin B12 955 H (200-900) pg/mL H & H 09/04/24 09/05/24 Range/Units 15:23 05:11 Hgb 11.4 L 10.2 L (14.0-18.0) g/dl Hct 33.9 L 30.8 L (42.0-52.0) % All other labs normal. Assessment and Plan (1) Effusion, left knee: Status: Acute Plan Patient does not want knee aspirated at this time Recommend NSAIDs if able to tolerate Tylenol Omid wrap PT for ROM and strength WBAT Re-consult if any questions Procedures Date of Service Date of Service: 09/05/24
[2024-09-05] MEDS: Insulin Lispro 100 UNIT/ML 3 ML VIAL SUBCUT ×4 (07:57→21:28)
[2024-09-05] MEDS: 0.9 % Sodium Chloride Flush 3 ML SYRINGE IVFLUSH ×3 (07:58→21:30)
--- NOTE | 2024-09-05 08:59 | PHA.MEDREC ---
Addendum entered by Sveta Lima RP 09/05/24 11:38: Reviewed by [facility]. Most recent pharmacy fills were for 850mg metformin. This was also given in rehab, 850mg. 850mg was put on the med list. Addendum entered by Irma Hong 09/05/24 11:12: Spoke with pt to clarify his Metformin dose. Pt stated he is not sure what dose he takes and this is one of the reasons why he is here He confirmed he has 500mg tabs and 850mg tabs at home and then he stated while at the rehab facility they told me they were giving me 1000mg ; pt then stated he does not care at this point and has been taking whatever anyone gives him. Original Note: Pharmacy Consult ? Medication Reconciliation Pharmacy has completed the medication reconciliation. Spoke with pt and he confirmed his medications. Pt confirmed he had just started most of his medications in the last few weeks from being in and out of hospitals around here and a rehab facility and wants to get clarification on what he should really be taking. Pt has not started the Carvedilol or Cyclobenzapirine meds that was just prescribed to him, stating they are still waiting to be picked up from the pharmacy. Pt confirmed he was prescribed both Bumetanide and Spironolactone for diuretics and pt wants to know if he should be on both. Pt also not sure the last time he took all his medications since being in and out of the hospitals, pt thinking it may have been 2-3 days at least.
[2024-09-05 11:07] LABS: Glucose, Whole Blood 277 mg/dL (60-115)
--- NOTE | 2024-09-05 11:24 | P.CNNE_ITS ---
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 Patient reports a long recovery status post admission to [facility] for strep bacteremia. Patient was then in rehabilitation with IV antibiotics. Patient normally works from home but since returning from rehab, he has continued with ongoing weakness and what he describes as dizziness, visual fog, and all-over body twitching upon change in position from sitting to standing. Symptoms would resolve in minutes or sooner if he sat back down. Patient denies any loss of consciousness or cognitive issues. Patient has not incurred any injuries with any of these episodes. Patient denies any loss of bowel or bladder function. Patient states he believes his cognition is intact and denies any recent memory loss. He also complains of lumbar spine pain radiating to left thigh upto knee PMFSH Past Medical History Medical History (Updated 09/05/24 @ 16:32 by John Shields MD) Stomach ulcer Stage Lola non-Hodgkin lymphoma Neuropathy Erectile dysfunction Diabetes mellitus Thrombocytopenia Low vitamin D level Hypercholesterolemia Gait instability Cirrhosis Jaundice RIVERA (nonalcoholic steatohepatitis) Surgical History Surgical History History of hernia repair History of shoulder surgery Social History Social History (Updated 09/05/24 @ 02:31 by AVI Samuels) Household Members: Spouse Household Members Other:: 2 Housing: House Are you a primary primary care coordinator to a significant other at home: No Do you presently have visiting nurse or other home services: Yes Alcohol intake: never Patient Tobacco Use Status: Never used Tobacco Tobacco use type: Cigarette e-Cigarette/Vaping Use: Never Used Second Hand Smoke Exposure: No Currently Displaying Signs/Symptoms of Drug Intoxication Withdrawal: No Do you feel safe in your current relationship?: Yes Advance Directives: Yes Advance Directives on File: Yes Advance Directives Date on File: 09/04/24 Do you have a plan to hurt others: No Plan Recently lost weight without trying: Yes How much weight loss: 34pounds or more Eating poorly because of decreased appetite: Yes Nutrition screen score: 7 Poor oral hygiene: No service: No Current occupational status: employed 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 Current occupational exposures/hazards: No Cognitive needs: No Hearing needs: No Vision needs: No Travel History Ebola Risk: Travel/Contact With Anyone From Affected Area/s: No Has Patient Experienced Ebola Symptoms: No Meds Allergies Allergy/AdvReac Type Severity Reaction Status Date / Time No Known Allergies Allergy Verified 09/04/24 15:05 Active Medications: Current Medications Acetaminophen (Acetaminophen 325 Mg Tablet) 650 mg PO Q6H PRN PRN Reason: Pain, Mild 1-3,fever,headache Albuterol/Ipratropium (Albuterol/Iprat 2.5/0.5mg 3 Ml Ampul.Neb) 3 ml INHALE Q4H PRN PRN Reason: Shortness of Breath/Wheezing Calcium Carbonate (Calcium Carbonate 750 Mg Tab.Chew) 750 mg PO Q4H PRN PRN Reason: Heartburn Cefazolin Sodium (Cefazolin Sodium 1 Gm Vial) 1 gm IVPUSH Q8H [facility] Last Admin: 09/05/24 10:40 Dose: 1 gm Cyclobenzaprine HCl (Cyclobenzaprine Hcl 10 Mg Tablet) 10 mg PO TID PRN PRN Reason: Muscle Spasm Last Admin: 09/05/24 02:31 Dose: 10 mg Dextrose (Dextrose 50 % 25 Gm/50 Ml Syringe) 25 gm IVPUSH Q15M PRN; Protocol PRN Reason: per Hypoglycemia Standing Ord. Enoxaparin Sodium (Enoxaparin Sodium 40 Mg/0.4 Ml Syringe) 40 mg SUBCUT Q24H [facility] Last Admin: 09/05/24 01:07 Dose: 40 mg Glucose (Glucose Gel 15 Gm Gel..Gram.) 15 gm PO Q15M PRN; Protocol PRN Reason: per Hypoglycemia Standing Ord. Insulin Human Lispro (Insulin Lispro 100 Unit/Ml 3 Ml Vial) 0 unit SUBCUT QIDACHS [facility]; Protocol Last Admin: 09/05/24 07:57 Dose: 6 unit Magnesium Hydroxide (Milk Of Magnesia 30 Ml Oral.Susp) 30 ml PO DAILY PRN PRN Reason: Constipation Melatonin (Melatonin 3 Mg Tablet) 6 mg PO BEDTIME PRN PRN Reason: Insomnia Morphine Sulfate (Morphine Sulfate 2 Mg/Ml Cartridge) 2 mg IVPUSH Q3H PRN; Protocol PRN Reason: Pain, Severe (Pain Scale 7-10) Ondansetron HCl (Ondansetron Hcl 4 Mg/2 Ml Vial) 4 mg IVPUSH Q8H PRN PRN Reason: Nausea and Vomiting Polyethylene Glycol (Polyethylene Glycol 3350 17 Gm Powd.Pack) 17 gm PO DAILY PRN PRN Reason: Constipation Potassium Chloride (Potassium Chloride Er 20 Meq Tab.Er.Prt) 20 meq PO DAILY [facility] Senna (Sennosides 8.6 Mg Tablet) 17.2 mg PO BEDTIME [facility] Sodium Chloride (0.9 % Sodium Chloride Flush 3 Ml Syringe) 3 ml IVFLUSH QSHIFT [facility] Last Admin: 09/05/24 07:58 Dose: 3 ml Spironolactone (Spironolactone 25 Mg Tablet) 50 mg PO DAILY [facility]; Protocol Home Medications ?Medication ?Instructions ?Recorded ?Confirmed ?Last Taken ?Type aspirin 325 mg tablet 650 mg PO Q4H 09/05/24 09/05/24 2 Days Ago History ~09/03/24 bumetanide 1 mg tablet 1 mg PO DAILY 09/05/24 09/05/24 2 Days Ago History ~09/03/24 metformin 850 mg tablet 850 mg PO BID diabetes mellitus 09/05/24 09/05/24 Unknown History spironolactone 50 mg tablet 50 mg PO DAILY 09/05/24 09/05/24 2 Days Ago History ~09/03/24 Physical Exam 2 Vital Signs: Vital Signs: Last Vital Signs Temp 98 F 09/05/24 09:53 Pulse 80 09/05/24 09:53 Resp 18 09/05/24 09:53 BP 102/50 L 09/05/24 09:53 Pulse Ox 97 09/05/24 09:53 O2 Del Method Room Air 09/05/24 09:53 O2 Flow Rate 2 09/05/24 09:16 BMI result Body Mass Index 39.6 Neuro: Other: Bilateral deltoid weakness 4+/5 and BLE weakness 4/5 . Areflexia of LE Plantars are flexor Results Labs 09/05/24 05:11 09/05/24 05:11 Labs: Short CBC 09/04/24 09/05/24 Range/Units 15:23 05:11 WBC 7.2 5.5 (4.8-10.8) X10*3/uL Hgb 11.4 L 10.2 L (14.0-18.0) g/dl Hct 33.9 L 30.8 L (42.0-52.0) % Plt Count 198 D 157 L (160-400) X10*3/uL BMP 09/04/24 09/05/24 15:23 05:11 Sodium 134 L 135 Potassium 3.4 2.9 L* Chloride 93 L 97 Carbon Dioxide 27 26 BUN 20 H 18 H Creatinine 0.83 0.69 Calcium 9.2 8.4 D Liver Function 09/04/24 09/05/24 Range/Units 15:23 05:11 Total Bilirubin 2.3 H 1.8 H (0.0-1.0) mg/dL AST 45 H 36 (5-37) U/L ALT 11 9 (0-40) U/L Alkaline Phosphatase 79 68 (39-117) U/L Albumin 2.8 L 2.9 L (3.5-5.0) g/dL Urine 09/04/24 Range/Units 20:09 Urine Color Yellow Urine Appearance Clear Urine pH 6.0 (5.0-9.0) Ur Specific [place] <= 1.005 (1.005-1.025) Urine Protein Negative (Neg-Trace) mg/dL Urine Glucose (UA) Negative (Negative) mg/dL Assessment and Plan (1) Dizziness: Status: Acute Suggestive of orthostatic hypotension. Recom. Orthoststatic BP check bid for 2 days. Cardiac monitoring (2) Lumbar radiculopathy: Status: Acute Low back pain radiating to left knee . 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
--- NOTE | 2024-09-05 11:46 | P.PNIM_ITS ---
Subjective Subjective Date of Service: 09/05/24 Interval History: left knee pain and swelling Physical Exam 2 Vital Signs: Vital Signs: Last Vital Signs Temp 98 F 09/05/24 09:53 Pulse 80 09/05/24 09:53 Resp 18 09/05/24 09:53 BP 102/50 L 09/05/24 09:53 Pulse Ox 97 09/05/24 09:53 O2 Del Method Room Air 09/05/24 09:53 O2 Flow Rate 2 09/05/24 09:16 BMI result Body Mass Index 39.6 General: AO X 3, no acute distress Resp: CTA bilateral, no accessory muscles used CVS: S1,S2,RRR GI: soft, non tender, non distended Neuro: motor grossly intact, alert Psych: appropriate affect, appropriate insight left knee swelling, tender, no erythema Objective Data Active Medications Acetaminophen (Acetaminophen 325 Mg Tablet) 650 mg PO Q6H PRN PRN Reason: Pain, Mild 1-3,fever,headache Albuterol/Ipratropium (Albuterol/Iprat 2.5/0.5mg 3 Ml Ampul.Neb) 3 ml INHALE Q4H PRN PRN Reason: Shortness of Breath/Wheezing Calcium Carbonate (Calcium Carbonate 750 Mg Tab.Chew) 750 mg PO Q4H PRN PRN Reason: Heartburn Cefazolin Sodium (Cefazolin Sodium 1 Gm Vial) 1 gm IVPUSH Q8H [facility] Last Admin: 09/05/24 10:40 Dose: 1 gm Documented By: ALEJANDRINA Cyclobenzaprine HCl (Cyclobenzaprine Hcl 10 Mg Tablet) 10 mg PO TID PRN PRN Reason: Muscle Spasm Last Admin: 09/05/24 02:31 Dose: 10 mg Documented By: JUAN F Dextrose (Dextrose 50 % 25 Gm/50 Ml Syringe) 25 gm IVPUSH Q15M PRN; Protocol PRN Reason: per Hypoglycemia Standing Ord. Enoxaparin Sodium (Enoxaparin Sodium 40 Mg/0.4 Ml Syringe) 40 mg SUBCUT Q24H [facility] Last Admin: 09/05/24 01:07 Dose: 40 mg Documented By: JUAN F Glucose (Glucose Gel 15 Gm Gel..Gram.) 15 gm PO Q15M PRN; Protocol PRN Reason: per Hypoglycemia Standing Ord. Insulin Human Lispro (Insulin Lispro 100 Unit/Ml 3 Ml Vial) 0 unit SUBCUT QIDACHS [facility]; Protocol Last Admin: 09/05/24 07:57 Dose: 6 unit Documented By: GUSTAVO Magnesium Hydroxide (Milk Of Magnesia 30 Ml Oral.Susp) 30 ml PO DAILY PRN PRN Reason: Constipation Melatonin (Melatonin 3 Mg Tablet) 6 mg PO BEDTIME PRN PRN Reason: Insomnia Morphine Sulfate (Morphine Sulfate 2 Mg/Ml Cartridge) 2 mg IVPUSH Q3H PRN; Protocol PRN Reason: Pain, Severe (Pain Scale 7-10) Ondansetron HCl (Ondansetron Hcl 4 Mg/2 Ml Vial) 4 mg IVPUSH Q8H PRN PRN Reason: Nausea and Vomiting Polyethylene Glycol (Polyethylene Glycol 3350 17 Gm Powd.Pack) 17 gm PO DAILY PRN PRN Reason: Constipation Potassium Chloride (Potassium Chloride Er 20 Meq Tab.Er.Prt) 20 meq PO DAILY MARTHA Senna (Sennosides 8.6 Mg Tablet) 17.2 mg PO BEDTIME [facility] Sodium Chloride (0.9 % Sodium Chloride Flush 3 Ml Syringe) 3 ml IVFLUSH QSHIFT [facility] Last Admin: 09/05/24 07:58 Dose: 3 ml Documented By: GUSTAVO Spironolactone (Spironolactone 25 Mg Tablet) 50 mg PO DAILY [facility]; Protocol Labs 09/05/24 05:11 09/05/24 05:11 Labs: Laboratory Results - last 24 hr 09/04/24 09/04/24 09/04/24 15:23 17:43 20:09 MCV 92.1 MCH 31.0 MCHC 33.6 RDW 14.0 Plt Count 198 D MPV 11.3 Immature Gran % (Auto) 0.3 Neut % (Auto) 72.6 Lymph % (Auto) 17.2 L [place] % (Auto) 8.1 Eos % (Auto) 1.1 Baso % (Auto) 0.7 Lymph # (Auto) 1.2 [place] # (Auto) 0.6 Eos # (Auto) 0.1 Baso # (Auto) 0.1 Abs Immat Gran (auto) 0.02 Absolute Neuts (auto) 5.2 Absolute Nucleated RBC 0.000 Nucleated RBC % (auto) 0.0 ESR Anion Gap 17 Estim Creat Clear Calc 127.9 Estimated GFR > 60 POC Glucose Random Glucose 218 H Estimat Average Glucose Hemoglobin A1c % Lactic Acid 3.6 H* Lactic Acid F/U @ 2Hr 3.6 H* Lactic Acid F/U @ 4Hr 2.5 H* Calcium 9.2 Magnesium 1.3 L* Total Bilirubin 2.3 H AST 45 H ALT 11 Alkaline Phosphatase 79 Ammonia C-Reactive Protein C-React Prot High Sens Total Protein 7.5 Albumin 2.8 L Triglycerides Cholesterol LDL Cholesterol, Calc HDL Cholesterol Lipase 22 Vitamin B12 Folate TSH Urine Color Yellow Urine Appearance Clear Urine pH 6.0 Ur Specific [place] <= 1.005 Urine Protein Negative Urine Glucose (UA) Negative Urine Ketones Negative Urine Blood Negative Urine Nitrite Negative Ur Leukocyte Esterase Negative Urine RBC 0-2 Urine WBC 0-5 Ur Squamous Epith Cells 0-2 Urine Bacteria None Seen Hyaline Casts 0-2 Influenza Type A (PCR) NEGATIVE Influenza Type B (PCR) NEGATIVE RSV RNA Qual (PCR) NEGATIVE SARS-CoV-2 RNA (RT-PCR) NEGATIVE 09/05/24 09/05/24 09/05/24 05:11 07:22 11:03 MCV 91.4 MCH 30.3 MCHC 33.1 RDW 14.1 Plt Count 157 L MPV 11.1 Immature Gran % (Auto) 0.2 Neut % (Auto) 58.7 Lymph % (Auto) 27.8 [place] % (Auto) 10.6 Eos % (Auto) 2.0 Baso % (Auto) 0.7 Lymph # (Auto) 1.5 [place] # (Auto) 0.6 Eos # (Auto) 0.1 Baso # (Auto) 0.0 Abs Immat Gran (auto) 0.01 Absolute Neuts (auto) 3.2 Absolute Nucleated RBC 0.000 Nucleated RBC % (auto) 0.0 ESR 102 H Anion Gap 15 Estim Creat Clear Calc 153.8 Estimated GFR > 60 POC Glucose 264 H 277 H Random Glucose 245 H Estimat Average Glucose 154 Hemoglobin A1c % 7.0 H Lactic Acid Lactic Acid F/U @ 2Hr Lactic Acid F/U @ 4Hr Calcium 8.4 D Magnesium 1.6 Total Bilirubin 1.8 H AST 36 ALT 9 Alkaline Phosphatase 68 Ammonia 66 H C-Reactive Protein 7.67 H C-React Prot High Sens Cancelled Total Protein 6.5 Albumin 2.9 L Triglycerides 83 Cholesterol 126 LDL Cholesterol, Calc 92 HDL Cholesterol 18 L Lipase Vitamin B12 955 H Folate 7.9 TSH 1.72 Urine Color Urine Appearance Urine pH Ur Specific [place] Urine Protein Urine Glucose (UA) Urine Ketones Urine Blood Urine Nitrite Ur Leukocyte Esterase Urine RBC Urine WBC Ur Squamous Epith Cells Urine Bacteria Hyaline Casts Influenza Type A (PCR) Influenza Type B (PCR) RSV RNA Qual (PCR) SARS-CoV-2 RNA (RT-PCR) Assessment and Plan (1) Diabetes mellitus: Status: Acute Plan 58M PMH DM, RIVERA cirrhosis, NHL in remission from 2013 with chemo induced neuropathy, chronic back pain, recent beta hemolytic strep bacteremia, presented with near syncope/weakness and left knee pain and swelling near syncope suspect hypotnesion/orthostasis follow up echo weakness pt eval left knee swelling ortho appreciated - glenny dorman septic will give empiric ancef until cultures back acute hypomagnesemia and hypokalemia replace and monitor RIVERA cirrhosis stable dm insulin dvt prophylaxis - lovenox full code reason for continued hospitalization:cultures Quality Stroke Does the patient have a stroke diagnosis?: No Reason for No Anti-thrombotic by Day Two: N/A - Med Ordered VTE Prior VTE?: No VTE Risk Level:: Medical - moderate - high VTE Device Contraindication: N/A - Device Ordered VTE Drug Contraindication: N/A - Med Ordered
--- NOTE | 2024-09-05 12:02 | MHC.CM.PN ---
LIVES AT HOME W/ /STEP SON FUNCTIONALLY INDP. RECENT STAY AT [facility]. WAS DC'D TO SNF FOR IV ABX, CANNOT RECALL WHICH SNF. NOW ACTIVE W/ [facility] FOR PT/OT/SN. PCP ISMAEL MAIER HCP ON FILE AND VERIFIED. DP: PT EVAL PENDING. GOAL IS HOME, RESUME SERVICES. FAMILY TRANSPORT ( OR BROTHER). CM WILL CONTINUE TO FOLLOW.
--- NOTE | 2024-09-05 12:26 | P.CDIM_ITS ---
PROVIDER RESPONSE TEXT: To clarify, the appropriate diagnosis supported by the clinical indicators: Acute: acute QUERY TEXT: PHYSICIAN'S DOCUMENTATION REQUEST Date of Query: 09/05/2024 12:20 PM EDT Patient Name: Martin Alves Admit Date: 09/05/2024 Dear Paulino Hardy MD, A review of the medical record indicates additional documentation may be needed. Please review below and update the documentation accordingly. Clinical Indicators: H&P 09/05/24 - Lactic acidosis Lactate 3.6, after IV fluids currently trending down to 2.5 Blood cultures pending. Clarify which of the following accurately represents the acuity of the Lactic acidosis: Possible options might include: Acute possible, probable, suspected etc. Chronic Other (explain) Clinically unable to determine (explain) Thank you, Janie Nicolas, CCS, CDIS Use of terms such as suspected, likely, concern for, or probable (associated with a specific diagnosi s that is being evaluated, monitored, or treated as if it exists) are acceptable and can be coded in the inpatient se tting, when documented at the time of discharge. Please use your independent medical judgment in providing your response. THIS QUERY IS PART OF THE PERMANENT MEDICAL RECORD
[2024-09-05 16:30] LABS: Glucose, Whole Blood 279 mg/dL (60-115)
[2024-09-05 20:22] LABS: Glucose, Whole Blood 213 mg/dL (60-115)
[2024-09-05] MEDS: Sennosides 8.6 MG TABLET 17.2 MG PO (21:26)
[2024-09-06] MEDS: Cyclobenzaprine HCl 10 MG TABLET PO ×2 (01:53→18:12)
[2024-09-06] MEDS: Enoxaparin Sodium 40 MG/0.4 ML SYRINGE SUBCUT (01:54)
[2024-09-06] MEDS: ceFAZolin Sodium 1 GM VIAL IVPUSH ×2 (02:01→10:30)
[2024-09-06 03:19] VITALS: BP 124/68; PULSE 97; RESP 18; TEMP 36.9; O2SAT 95
[2024-09-06] MEDS: Morphine Sulfate 2 MG/ML CARTRIDGE IVPUSH ×3 (03:30→18:17)
[2024-09-06 07:00] LABS: Anion Gap 12 (12-20); Blood Urea Nitrogen 9 mg/dL (9-16); Calcium 8.4 mg/dL (8.4-10.2); Carbon Dioxide 28 mmol/L (22-29); Chloride 101 mmol/L (96-108); Creatinine Clr Calc Pharmacy 178.4; Estimated Glomerular Filt Rate > 60; Glucose Random 149 mg/dL (60-115); Magnesium 1.6 mg/dL (1.6-2.6); Potassium 3.2 mmol/L (3.3-5.1); Sodium 138 mmol/L (135-145)
[2024-09-06 07:12] VITALS: BP 112/53; PULSE 83; RESP 14; TEMP 36.8; O2SAT 93
[2024-09-06 07:13] LABS: Hematocrit 29.6 % (42.0-52.0); Hemoglobin 9.8 g/dl (14.0-18.0); Mean Corpuscular HGB Conc 33.1 g/dl (31.0-36.0); Mean Corpuscular Hemoglobin 30.5 pg (27.0-33.0); Mean Corpuscular Volume 92.2 fL (80.0-98.0); Mean Platelet Volume 11.1 fL (9.4-12.4); Platelet Count 154 X10*3/uL (160-400); Red Blood Count 3.21 X10*6/uL (4.60-5.80); Red Cell Distribution Width 13.9 % (11.0-16.0); White Blood Count 5.5 X10*3/uL (4.8-10.8)
[2024-09-06 07:34] LABS: Glucose, Whole Blood 153 mg/dL (60-115)
[2024-09-06] MEDS: Magnesium Oxide 400 MG TABLET 800 MG PO (07:45)
[2024-09-06] MEDS: Insulin Lispro 100 UNIT/ML 3 ML VIAL SUBCUT ×3 (07:46→17:09)
[2024-09-06] MEDS: 0.9 % Sodium Chloride Flush 3 ML SYRINGE IVFLUSH ×2 (07:46→15:14)
[2024-09-06] MEDS: Potassium Chloride ER 20 MEQ TAB.ER.PRT PO (07:46)
[2024-09-06] MEDS: Potassium Chloride ER 20 MEQ TAB.ER.PRT 40 MEQ PO (07:46)
[2024-09-06] MEDS: polyethylene glycoL 3350 17 GM POWD.PACK PO (07:51)
[2024-09-06] MEDS: Spironolactone 25 MG TABLET 50 MG PO (08:08)
--- NOTE | 2024-09-06 09:13 | HO.PM.IMPN ---
Subjective Subjective Date of Service: 09/06/24 Interval History: back pain, left knee pain Physical Exam Vital Signs: Vital Signs: Last Vital Signs Temp 98.3 F 09/06/24 07:12 Pulse 83 09/06/24 07:12 Resp 14 09/06/24 07:12 BP 112/53 L 09/06/24 07:12 Pulse Ox 93 09/06/24 07:12 O2 Del Method Room Air 09/06/24 07:12 O2 Flow Rate 2 09/05/24 09:16 BMI result Body Mass Index 39.6 General: AO X 3, no acute distress Resp: CTA bilateral, no accessory muscles used CVS: S1,S2,RRR GI: soft, non tender, non distended Neuro: motor grossly intact, alert Psych: appropriate affect, appropriate insight left knee swelling, tender, no erythema Objective Data Active Medications Acetaminophen (Acetaminophen 325 Mg Tablet) 650 mg PO Q6H PRN PRN Reason: Pain, Mild 1-3,fever,headache Albuterol/Ipratropium (Albuterol/Iprat 2.5/0.5mg 3 Ml Ampul.Neb) 3 ml INHALE Q4H PRN PRN Reason: Shortness of Breath/Wheezing Calcium Carbonate (Calcium Carbonate 750 Mg Tab.Chew) 750 mg PO Q4H PRN PRN Reason: Heartburn Cefazolin Sodium (Cefazolin Sodium 1 Gm Vial) 1 gm IVPUSH Q8H [facility] Last Admin: 09/06/24 02:01 Dose: 1 gm Documented By: MYRA Cyclobenzaprine HCl (Cyclobenzaprine Hcl 10 Mg Tablet) 10 mg PO TID PRN PRN Reason: Muscle Spasm Last Admin: 09/06/24 01:53 Dose: 10 mg Documented By: MYRA Dextrose (Dextrose 50 % 25 Gm/50 Ml Syringe) 25 gm IVPUSH Q15M PRN; Protocol PRN Reason: per Hypoglycemia Standing Ord. Enoxaparin Sodium (Enoxaparin Sodium 40 Mg/0.4 Ml Syringe) 40 mg SUBCUT Q24H [facility] Last Admin: 09/06/24 01:54 Dose: 40 mg Documented By: MYRA Glucose (Glucose Gel 15 Gm Gel..Gram.) 15 gm PO Q15M PRN; Protocol PRN Reason: per Hypoglycemia Standing Ord. Insulin Human Lispro (Insulin Lispro 100 Unit/Ml 3 Ml Vial) 0 unit SUBCUT QIDACHS [facility]; Protocol Last Admin: 09/06/24 07:46 Dose: 2 unit Documented By: ALEJANDRINA Lidocaine (Lidocaine 4 % Patch Adh..Patch) 1 patch TRANSDERMA DAILY [facility]; Protocol Magnesium Hydroxide (Milk Of Magnesia 30 Ml Oral.Susp) 30 ml PO DAILY PRN PRN Reason: Constipation Magnesium Oxide (Magnesium Oxide 400 Mg Tablet) 800 mg PO DAILY [facility] Last Admin: 09/06/24 07:45 Dose: 800 mg Documented By: ALEJANDRINA Melatonin (Melatonin 3 Mg Tablet) 6 mg PO BEDTIME PRN PRN Reason: Insomnia Morphine Sulfate (Morphine Sulfate 2 Mg/Ml Cartridge) 2 mg IVPUSH Q3H PRN; Protocol PRN Reason: Pain, Severe (Pain Scale 7-10) Last Admin: 09/06/24 03:30 Dose: 2 mg Documented By: MYRA Ondansetron HCl (Ondansetron Hcl 4 Mg/2 Ml Vial) 4 mg IVPUSH Q8H PRN PRN Reason: Nausea and Vomiting Polyethylene Glycol (Polyethylene Glycol 3350 17 Gm Powd.Pack) 17 gm PO DAILY PRN PRN Reason: Constipation Last Admin: 09/06/24 07:51 Dose: 17 gm Documented By: ALEJANDRINA Potassium Chloride (Potassium Chloride Er 20 Meq Tab.Er.Prt) 20 meq PO DAILY [facility] Last Admin: 09/06/24 07:46 Dose: 20 meq Documented By: ALEJANDRINA Senna (Sennosides 8.6 Mg Tablet) 17.2 mg PO BEDTIME [facility] Last Admin: 09/05/24 21:26 Dose: 17.2 mg Documented By: MYRA Sodium Chloride (0.9 % Sodium Chloride Flush 3 Ml Syringe) 3 ml IVFLUSH QSHIFT [facility] Last Admin: 09/06/24 07:46 Dose: 3 ml Documented By: ALEJANDRINA Spironolactone (Spironolactone 25 Mg Tablet) 50 mg PO DAILY [facility]; Protocol Last Admin: 09/06/24 08:08 Dose: 50 mg Documented By: ALEJANDRINA Comments: per MD Hayley fontana to give Labs 09/06/24 06:33 09/06/24 06:33 Labs: Laboratory Results - last 24 hr 09/05/24 09/05/24 09/05/24 11:03 16:26 20:18 MCV MCH MCHC RDW Plt Count MPV Absolute Nucleated RBC Nucleated RBC % (auto) Anion Gap Estim Creat Clear Calc Estimated GFR POC Glucose 277 H 279 H 213 H Random Glucose Calcium Magnesium 09/06/24 09/06/24 06:33 07:30 MCV 92.2 MCH 30.5 MCHC 33.1 RDW 13.9 Plt Count 154 L MPV 11.1 Absolute Nucleated RBC 0.000 Nucleated RBC % (auto) 0.0 Anion Gap 12 Estim Creat Clear Calc 178.4 Estimated GFR > 60 POC Glucose 153 H Random Glucose 149 H Calcium 8.4 Magnesium 1.6 Microbiology Microbiology Results: Microbiology 09/04/24 17:43 Blood Culture - Preliminary Blood - Venous No growth after 24 hours. 09/04/24 15:22 Blood Culture - Preliminary Blood - Venous No growth after 24 hours. Assessment and Plan (1) Diabetes mellitus: Status: Acute Plan 58M PMH DM, RIVERA cirrhosis, NHL in remission from 2013 with chemo induced neuropathy, chronic back pain, recent beta hemolytic strep bacteremia, presented with near syncope/weakness and left knee pain and swelling near syncope suspect hypotnesion/orthostasis echo unremarkable will give another 1L NS back pain, weakness neuro appreciated - recommending MRI LS spine given recent bacteremia pt eval left knee swelling ortho appreciated - doesn't think septic giving empiric ancef until cultures back acute hypomagnesemia and hypokalemia replace and monitor RIVERA cirrhosis stable dm insulin dvt prophylaxis - lovenox full code reason for continued hospitalization:cultures Quality Stroke Does the patient have a stroke diagnosis?: No Reason for No Anti-thrombotic by Day Two: N/A - Med Ordered VTE Prior VTE?: No VTE Risk Level:: Medical - moderate - high VTE Device Contraindication: N/A - Device Ordered VTE Drug Contraindication: N/A - Med Ordered
[2024-09-06] MEDS: gadobutroL 10 ML VIAL IVPUSH (09:44)
[2024-09-06] MEDS: Lidocaine 4 % Patch ADH..PATCH 1 PATCH TRANSDERMA (09:45)
[2024-09-06] MEDS: 0.9 % Sodium Chloride 1,000 ML 75 ML IVCONT (09:46)
[2024-09-06 10:18] VITALS: BP 112/53; PULSE 83; O2SAT 93
--- NOTE | 2024-09-06 10:30 | MHC.CM.PN ---
Addendum entered by Sonja Ponce RN 09/06/24 11:08: PT rec home w/ services. [facility] updated. Original Note: Per MD rounds patient not medically cleared for dc. Awaiting MRI and PT eval. CM will continue to follow.
[2024-09-06 11:03] LABS: Glucose, Whole Blood 209 mg/dL (60-115)
[2024-09-06 15:12] VITALS: BP 126/62; PULSE 89; RESP 14; TEMP 37; O2SAT 97
--- NOTE | 2024-09-06 15:12 | P.DS_ITS ---
DS: Providers Provider Date of Service: 09/06/24 Date of admission: 09/05/24 00:41 Date of discharge: 09/06/24 Primary care physician: Sammie Estrella PA-C Consults: 09/05/24 01:01 Consult to Neurology Routine Consulting Provider: [facility] Reason for consultation: multiple falls, ? GBS Has provider been notified: No 09/05/24 02:49 Consult to Orthopedics Routine Consulting Provider: [facility] Reason for consultation: Moderate left knee effusion 09/06/24 14:14 Consult to Infectious Diseases Routine Consulting Provider: [facility] Reason for consultation: epidural abscess DS: Diagnosis Discharge Diagnosis (1) Diabetes mellitus: Status: Acute DS: Summary Hospital Course Hospital Course: from initial hpi: 58-year-old male with past medical history recently diagnosed diabetes type 2, history of stage IV non-Hodgkin's lymphoma currently in remission diagnosed 2013, neuropathy secondary to cancer treatment, vitamin-D deficiency, erectile dysfunction, chronic low back pain, Rivera, cirrhosis, and recent admission to [facility] for strep bacteremia with extensive workup for issues related to jaundice and hyperbilirubinemia including an MRCP presents to the emergency department after 2 days of a total of 3 near syncopal episodes. In addition patient states he was jaundice yesterday. That jaundice is currently resolved. Patient reports a long recovery status post admission to [facility] for strep bacteremia. Patient was then in rehabilitation with a midline completing IV antibiotics as there were no oral antibiotic alternatives. Patient normally works from home but since returning from rehab, patient has continued with ongoing weakness and what he describes as dizziness, visual fog, and all-over body twitching upon change in position from sitting to standing. Symptoms would resolve in minutes or sooner if pt sat back down. Patient denies any loss of consciousness or cognitive issues. Patient has not incurred any injuries with any of these episodes. Patient denies any loss of bowel or bladder function. Patient states he believes his cognition is intact and denies any recent memory loss. Patient states he is not currently receiving physical therapy at home. Patient's sister was diagnosed with Gwendol[place] syndrome approximately 30 years prior. Prior to patient's illness patient was traveling in [place] for a 3 day work-related trip in June of 2024. Currently, pt has not been able to resume usual activities of daily life including driving and leaving the house. Patient did present with a lactate of 3.6 and after IV fluids, lactate trending down to 2.5. The ED did start patient on ceftriaxone. Blood cultures pending. Patient's blood sugar was 218. Sodium 134. Renal function within normal limits. Magnesium 1.3 and patient received 2 g of magnesium IV and oral magnesium. Patient's total bilirubin 2.3. Last known Tbili was 4.8 at [facility] during most recent admission. AST 45, ALT 11. Lipase 22. Incidentally, left knee x-ray indicates moderate knee joint effusion. Will check sed rate and CRP and have orthopedics review. In the emergency room, patient was treated with IV morphine for his pain in his lower back that radiates to both legs. Left leg is worse than the right leg. Patient denies any history of sciatica. Patient states he was prescribed Flexeril approximately 3 weeks ago and this has helped his symptoms overall. Regarding patient's neuro exam, the only deficiency was inability to push up against examiner's hand in both shins, otherwise neuro exam unremarkable. Patient recently told he has diabetes and was started on low-dose metformin. Patient does not check his blood sugars at home. BG elevated in ED. Patient denies any alcohol use, tobacco use or marijuana use. Records from [facility] were requested via ED staff. hospital course: patient was admitted for presyncope due to orthostatic hypotension, symptoms resolved with hyration and holding diuretics. had no events on tele, echo unremarkable, was seen by neuro, who recommended given recent beta hemolytic strep bacteremia *about 6 weeks ptp, and worsening back pain to get mri of LS spine which revealed Prevertebral compartment/epidural abscess/osteomyelitis L4- 5 compressing the neural elements of the thecal sac and the exiting nerve roots more pronounced at L4-5 and extending into S1-2. patient already empriically on ancef, blood cultures negative, plan to transfer to [facility] for neurosurgery eval, accepting phsycian Dr. Gómez. also note to have left knee swelling, ortho felt unlikely to be septic, more likely inflammatory, either way covered by abx. for diabetes was conitnue on insulin, for RIVERA cirrhosis remained stable. course complicated by acute hypomagnesemia and hypokalemia which was repleted. Time Attestation Discharge Coordination Time (in mins): 34 Quality: Safe Use of Opioids Does Pt have an Active Cancer Diagnosis on the Problem List?: No Quality: Stroke Does the patient have a stroke diagnosis?: No Physical Exam Vital Signs: Vital Signs: Last Vital Signs Temp 98.3 F 09/06/24 07:12 Pulse 83 09/06/24 10:18 Resp 14 09/06/24 07:12 BP 112/53 L 09/06/24 10:18 Pulse Ox 93 09/06/24 10:18 O2 Del Method Room Air 09/06/24 07:12 O2 Flow Rate 2 09/05/24 09:16 BMI result Body Mass Index 39.6 Neuro: Other: Bilateral deltoid weakness 4+/5 and BLE weakness 4/5 . Areflexia of LE Plantars are flexor DS: Data Data Completed and Pending Labs on day of discharge: Laboratory Results - last 24 hr 09/05/24 09/05/24 09/06/24 16:26 20:18 06:33 WBC 5.5 RBC 3.21 L Hgb 9.8 L Hct 29.6 L MCV 92.2 MCH 30.5 MCHC 33.1 RDW 13.9 Plt Count 154 L MPV 11.1 Absolute Nucleated RBC 0.000 Nucleated RBC % (auto) 0.0 Sodium 138 Potassium 3.2 L Chloride 101 Carbon Dioxide 28 Anion Gap 12 BUN 9 Creatinine 0.62 Estim Creat Clear Calc 178.4 Estimated GFR > 60 POC Glucose 279 H 213 H Random Glucose 149 H Calcium 8.4 Magnesium 1.6 09/06/24 09/06/24 07:30 10:59 WBC RBC Hgb Hct MCV MCH MCHC RDW Plt Count MPV Absolute Nucleated RBC Nucleated RBC % (auto) Sodium Potassium Chloride Carbon Dioxide Anion Gap BUN Creatinine Estim Creat Clear Calc Estimated GFR POC Glucose 153 H 209 H Random Glucose Calcium Magnesium Preliminary micro results at discharge 09/04/24 17:43 Blood Culture - Preliminary Blood - Venous No growth after 24 hours. 09/04/24 15:22 Blood Culture - Preliminary Blood - Venous No growth after 24 hours. Discharge Plan Discharge Anticipated Discharge Date/Time: 09/06/24 15:10 Patient Disposition: Xfer Acute Care Hospital Discharge Diagnosis: epidrual abscess Referrals: Sammie Estrella PA-C [Primary Care Provider] - 1 Week Discharge Medications: New cefazolin 1 gram Recon Soln 1 g IVPUSH Q8H Qty: 0 0RF lidocaine [Lidocaine Pain Relief] 4 % Adhesive Patch,Medicated 1 patch transdermal DAILY Qty: 0 0RF Protocol: Apply to: Apply to: back Continued spironolactone 50 mg tablet 50 mg PO DAILY metformin 850 mg tablet 850 mg PO BID sildenafil 50 mg tablet 50 mg PO DAILY PRN (Reason: sexual activity) Qty: 20 0RF Rx Instructions: administer 30 minutes to 4 hours before activity cholecalciferol (vitamin D3) 25 mcg (1,000 unit) capsule 25 mcg PO DAILY Qty: 90 3RF Discontinued bumetanide 1 mg tablet 1 mg PO DAILY aspirin 325 mg Tablet 650 mg PO Q4H Rx Instructions: while awake Diet: Advance to usual diet Activity on Discharge: As tolerated Stand Alone Forms: Patient Portal Discharge page Print Language: Kosovan Care Plan Goals: manage epidural abscess Health Concerns: epidural abscess Plan of Treatment: transfer to [facility] for neurosureery Assessment: see above
--- NOTE | 2024-09-06 15:17 | PM.EVENT ---
Event Note Date of Service: 09/06/24 Event Note: epidural abscess noted on mri on iv ancef, plan for transfer for neurosurgery eval Time Spent With Patient Time: Total time managing care of this patient today ____ minutes.
[2024-09-06 16:09] LABS: Glucose, Whole Blood 260 mg/dL (60-115)
[2024-09-06 17:40] VITALS: BP 109/55; PULSE 91; RESP 16; TEMP 36.7; O2SAT 93
== END 2024-09-06 19:18 | disposition short-term general hospital (02) | DRG 312 ==
LOC: HO.ED 09-05 00:39 → HO.EDOVER 09-05 01:04 → HO.S3 09-05 07:45
PROVIDERS: Nurse Practitioner Family; Physician Assistant; Admitting Provider Student in an Organized Health Care Education/Training Program; Emergency Provider Internal Medicine; Visit Provider Internal Medicine
DX: I95.1 Orthostatic hypotension (principal); G06.1 Intraspinal abscess and granuloma; E87.21 Acute metabolic acidosis; C85.9A Non-Hodgkin lymphoma, unspecified, in remission; M46.26 Osteomyelitis of vertebra, lumbar region; K75.81 Nonalcoholic steatohepatitis (NASH); E83.42 Hypomagnesemia; E87.6 Hypokalemia; E11.9 Type 2 diabetes mellitus without complications; K74.69 Other cirrhosis of liver; M25.462 Effusion, left knee; M54.59 Other low back pain; G89.29 Other chronic pain; G62.0 Drug-induced polyneuropathy; T45.1X5S Adverse effect of antineoplastic and immunosuppressive drugs, sequela; Z20.822 Contact with and (suspected) exposure to COVID-19; Z79.84 Long term (current) use of oral hypoglycemic drugs; Z79.899 Other long term (current) drug therapy
CPT/HCPCS: 0241U; 36415; 71046; 72158; 73562; 80048; 80053; 80061; 81001; 82140; 82607; 82746; 82947; 83036; 83605; 83690; 83735; 84443; 85025; 85027; 85652; 86140; 86141; 87040; 93005; 93306; 97162; 99285; A9585; J0690; J0696; J1650; J2270; J3475; P9047; Q9957

== ENCOUNTER → 2024-09-04 15:03 | Outpatient (BNV) | payer OTHER, SELFPAY | PROVIDERS: Visit Provider Radiology Diagnostic Radiology | DX: R53.1 Weakness (principal) | CPT/HCPCS: 71046 ==

== ENCOUNTER → 2024-09-04 15:03 | Outpatient (BNV) | payer OTHER, SELFPAY | PROVIDERS: Admitting Provider Student in an Organized Health Care Education/Training Program; Emergency Provider Internal Medicine; Visit Provider Internal Medicine Cardiovascular Disease | DX: R42 Dizziness and giddiness (principal) | CPT/HCPCS: 93010 ==

== ENCOUNTER 2024-09-05 00:41 | Outpatient (BNV) | payer OTHER, SELFPAY | END 2024-09-05 07:00 | PROVIDERS: Admitting Provider Student in an Organized Health Care Education/Training Program; Emergency Provider Internal Medicine; Visit Provider Internal Medicine Cardiovascular Disease | DX: I35.8 Other nonrheumatic aortic valve disorders (principal) | CPT/HCPCS: 93306 ==

== ENCOUNTER 2024-09-05 00:41 | Outpatient (BNV) | payer OTHER, SELFPAY | END 2024-09-06 08:57 | PROVIDERS: Admitting Provider Student in an Organized Health Care Education/Training Program; Emergency Provider Internal Medicine; Visit Provider Radiology Diagnostic Radiology | DX: M47.816 Spondylosis without myelopathy or radiculopathy, lumbar region (principal) | CPT/HCPCS: 72158 ==

== ENCOUNTER → 2024-09-05 00:41 | Outpatient (BNV) | payer OTHER, SELFPAY | PROVIDERS: Admitting Provider Student in an Organized Health Care Education/Training Program; Emergency Provider Internal Medicine; Visit Provider Psychiatry & Neurology Neurology | DX: R42 Dizziness and giddiness (principal); M54.16 Radiculopathy, lumbar region; G62.9 Polyneuropathy, unspecified | CPT/HCPCS: 99222 ==

== ENCOUNTER → 2024-09-05 00:41 | Outpatient (BNV) | payer OTHER, SELFPAY | PROVIDERS: Admitting Provider Student in an Organized Health Care Education/Training Program; Emergency Provider Internal Medicine; Visit Provider Physician Assistant | DX: M25.462 Effusion, left knee (principal) | CPT/HCPCS: 99221 ==

== ENCOUNTER → 2024-09-05 00:41 | Outpatient (BNV) | payer OTHER, SELFPAY | PROVIDERS: Admitting Provider Student in an Organized Health Care Education/Training Program; Emergency Provider Internal Medicine; Visit Provider Nurse Practitioner Family | DX: E11.9 Type 2 diabetes mellitus without complications (principal) | CPT/HCPCS: 99239; 99499 ==

== ENCOUNTER 2024-09-22 14:57 | Outpatient (AMB) | payer OTHER, SELFPAY ==
--- OUTSIDE RECORDS SUMMARY | 2024-09-22 15:09 | XMS_ITS | Clinical Summary ---
Author Organization [facility] [address] Address [address], [address] [place] [address] Care Team Providers Care Forestry Contractor Name Role Phone Unavailable Primary Care Provider Unavailabl e Encounters Date Type Department Care Team Description 09/07/2024 Scanned Document [facility] [address] [place] [address] Yolanda Doll MD from Last 3 Months Social History Tobacco Use Types Packs/Day Years Used Date Smoking Tobacco: Never Assessed Sex and Gender Information Value Date Recorded Sex Assigned at Not on file Legal Sex Male 4:15 PM EDT Gender Identity Not on file Sexual Orientation Not on file Plan of Treatment Health Maintenance Due Date Last Done Comments HIV screening 12/03/1976 Hepatitis C screening 12/03/1981 Tetanus adult (Td q 10,TDAP once) 1983 Lipid disorder screening 2003 Colon cancer screening, Colonoscopy 12/03/2008 Diabetes screening 12/03/2008 Pneumococcal Vaccine (50+ ye ars) (1 of 1 - PCV) 12/03/2013 Shingles vaccine (Shingrix) (1 of 2 - Shingrix (RZV) 2 Dose Standard Series) 12/03/2013 Covid-19 vaccine series ( - season) 2023 Influenza vaccine 11/27/2024 RSV Immunization (1 - 1-dose 75+ series) 12/03/2038 Meningococcal Vaccine Aged Out No pauline dana eligible based on patient's age to complete this topic [place] [address] [place] [address]
--- NOTE | 2024-09-22 15:21 | A.OFFVIS_ITS ---
Vital Signs 09/22/24 15:29 Pulse 102 H Pulse Source Pulse Oximeter Pulse Oximetry (%) 99 Oxygen Delivery Method Room Air Intake Visit Reasons: Osteomyelitis of vertebra Allergies No Known Allergies Allergy (Verified 09/22/24 15:29) HPI HPI Osteomyelitis of vertebra: Details: He feels he is doing well and has no complaints PFSH Medical History Stomach ulcer Stage Lola non-Hodgkin lymphoma Neuropathy Erectile dysfunction Diabetes mellitus Thrombocytopenia Low vitamin D level Hypercholesterolemia Gait instability Cirrhosis Jaundice RIVERA (nonalcoholic steatohepatitis) Surgical History History of hernia repair History of shoulder surgery Social History Household Members: Spouse Household Members Other:: 2 Housing: House Are you a primary career professional to a significant other at home: No Do you presently have visiting nurse or other home services: Yes Alcohol intake: never Patient Tobacco Use Status: Never used Tobacco Tobacco use type: Cigarette e-Cigarette/Vaping Use: Never Used Second Hand Smoke Exposure: No Advance Directives Date on File: 09/04/24 service: No Current occupational status: employed 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 Coding Level of Care Code Est Pt Level 3 (42334) Diagnoses Spinal abscess M46.20
[2024-09-22 15:29] VITALS: PULSE 102; O2SAT 99
== END 2024-09-22 15:48 | disposition home or self-care (01) ==
LOC: HO.HID 14:58
PROVIDERS: Visit Provider Internal Medicine
DX: M46.20 Osteomyelitis of vertebra, site unspecified (principal)
CPT/HCPCS: 99213

== ENCOUNTER 2024-09-26 09:22 | Outpatient (AMB) | payer OTHER, SELFPAY ==
--- NOTE | 2024-09-26 09:27 | MHC.PC.OV ---
Vital Signs 09/26/24 09:28 Height 6 ft Weight 285 lb 4.45 oz BMI 38.7 BP 130/72 Blood Pressure Location Rt brachial Position Sitting Pulse 110 H Pulse Source Pulse Oximeter Temp 97.3 F Temp Source Temporal Artery Scan Pulse Oximetry (%) 96 Oxygen Delivery Method Room Air Intake Visit Reasons: F [facility] 09/16/24 Intake Note: Patient is here for hospital discharge follow up. Patient was discharged from [facility] on 09/16/24. 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 Oxyacetylene Welder: Present Accompanied by: Son Allergies No Known Allergies Allergy (Verified 09/26/24 09:45) Medication List - Last Reconciled 09/26/24 by Sammie Estrella PA-C cefazolin 1 g IVPUSH Q8H cholecalciferol (vitamin D3) 25 mcg PO DAILY cyclobenzaprine 10 mg PO Q8H PRN lidocaine 4% (Lidocaine Pain Relief) 1 patch See Protocol transdermal DAILY lidocaine 5% 1 patch topical DAILY metformin 500 mg PO BID oxycodone 10 mg PO TID PRN Tobacco use date assessed: 09/26/24 Dental Screening Dental Screen Date: 06/08/24 HPI F [facility] 09/16/24 HPI Details 58-year-old male with past medical history of non-Hodgkin lymphoma, neuropathy, diabetes mellitus, thrombocytopenia, hypercholesterolemia, jaundice, cirrhosis, spinal abscess last seen 05/2024 coming in for hospital discharge follow up. In review of the notes, patient was seen in [facility] ED 09/05/2024 after [facility] admission for strep bacteremia. Patient was discharged from [facility] and while at home was having back pain and difficulty walking started on ceftriaxone while in the hospital MRI of the lumbar spine revealed prevertebral epidural abscess with osteomyelitis. Patient was transported to [facility] in [facility]. Patient underwent PICC placement while at [facility] for IV treatment as the abscess was too small to be drained. Patient to continue on high-dose ceftriaxone for 6-8 weeks at home and follow up in 6 weeks. He was seen by [facility] 08/2024 stable continue with plan. Presenting with management of spinal abscess, jaundice, and diabetes mellitus. A spinal abscess was identified on MRI, requiring transfer to another facility for potential drainage, which was not performed due to the abscess size. The patient continues to experience increasing low back pain and neuropathy in the right foot, with ongoing physical therapy. He has a history of diabetes mellitus, with recent A1c levels indicating suboptimal control, and has experienced significant weight loss. Cirrhosis was diagnosed during hospitalization, with conflicting reports on its etiology, and a referral to a GI specialist is planned. Noted 70 lb weight loss since last visit. [facility] Medical History Stomach ulcer Stage Lola non-Hodgkin lymphoma Neuropathy Erectile dysfunction Diabetes mellitus Thrombocytopenia Low vitamin D level Hypercholesterolemia Gait instability Cirrhosis Jaundice RIVERA (nonalcoholic steatohepatitis) Surgical History History of hernia repair History of shoulder surgery Social History Household Members: Spouse Household Members Other:: 2 Housing: House Are you a primary career education teacher to a significant other at home: No Do you presently have visiting nurse or other home services: Yes Alcohol intake: never Patient Tobacco Use Status: Never used Tobacco Tobacco use type: Cigarette e-Cigarette/Vaping Use: Never Used Second Hand Smoke Exposure: No Advance Directives Date on File: 09/04/24 service: No Current occupational status: employed 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 Current occupational exposures/hazards: No Cognitive needs: No Hearing needs: No Vision needs: No Questionnaire Thrive Questionnaire Date Thrive assessed: 06/08/24 I am a: Patient What is your living situation today?: I have a steady place to live Within the past 12 months, did the food you bought not last and you didn't have the money to get more?: Never true Within the past 12 months, did you worry whether your food would run out before you got money to buy more?: Never true Do you have trouble paying for medicines?: No Do you have trouble getting transportation to medical appointments?: No Do you have trouble paying your heating and electricity bill?: No Do you have trouble taking care of your child, family member or friend?: No Do you have trouble with day-to-day activities such as bathing, preparing meals, shopping, managing finances, etc.?: No Are you currently unemployed and looking for a job?: No Are you interested in more education?: No Please select the resources that you would like help with: None Currently or been in a relationship where the following occur: No concerns reported THRIVE Score: 0 MARRY-7 AMB Questionnaire MARRY-7 Date MARRY - 7 assessed: 06/08/24 Source: Developed by Drs. Viral Wynn, Anayeli Gonsalez, Kentrell West and colleagues, with an educational josseline from [employer]. Review of Systems Const Denies body aches, Denies chills, Denies fever(s), Denies headache(s) and Denies poor appetite Eyes Reports no additional complaints ENT Denies dysphagia, Denies dizziness, Denies headache(s) and Denies odynophagia Card Denies chest pain, Denies syncope, Denies edema, Denies irregular heart rhythm, Denies lightheadedness and Denies dyspnea Resp Denies cough and Denies dyspnea GI Denies abdominal pain, Denies constipation, Denies dysphagia, Denies diarrhea, Denies nausea, Denies odynophagia and Denies vomiting Reports no additional complaints Musc Reports no additional complaints and Denies abnormal gait Skin/Breast Reports system reviewed and no additional complaints, except as documented Neuro Denies abnormal gait, Denies dizziness, Denies syncope and Denies headache(s) Psych Reports no additional complaints Physical exam (Primary Care) Vital Signs: Last Vital Signs Temp 97.3 F 09/26/24 09:28 Pulse 110 H 09/26/24 09:28 BP 130/72 09/26/24 09:28 Pulse Ox 96 09/26/24 09:28 Oxygen Delivery Method Room Air 09/26/24 09:28 BMI result Body Mass Index 38.7 Tobacco/Smoking Status: Tobacco use Status Tobacco use date assessed 09/26/24 09/26/24 09:40 Patient Tobacco Use Status Never used Tobacco 09/26/24 09:40 Tobacco use type Cigarette 09/26/24 09:40 e-Cigarette/Vaping Use Never Used 09/26/24 09:40 Thrive Assessment: Date of Thrive Assessment Date Thrive assessed 06/08/24 09/26/24 09:40 Currently or been in a relationship where the following occur: No concerns reported Const General: cooperative, healthy appearing, comfortable and no acute distress Orientation/consciousness: patient oriented x3 HENMT Head: Yes normocephalic Ears: hearing grossly normal bilaterally General nose exam: Normal external nose present Eyes General: appearance normal, both eyes and all related structures Conjunctivae: conjunctivae normal Neck Neck: Yes full ROM and Yes no lymphadenopathy Resp Effort & Inspection: normal respiratory effort Auscultation: clear to auscultation bilaterally, no crackles, no rales, no rhonchi and no wheezes Cardio Rate: regular rate Rhythm: regular rhythm Skin General skin exam: no rashes or lesions noted Neuro General: patient oriented x3 Gait exam (Neuro): Normal gait present Extrem General: Yes normal to inspection, Yes full ROM and No edema Psych Affect: normal affect Attitude: cooperative Insight: Good insight present (Psych) Judgement: Good judgement present (Psych) Coding Level of Care Code Est Pt Level 4 (51133) Diagnoses Spinal abscess M46.20 Diabetes mellitus E11.9 Cirrhosis K74.60 Hypercholesterolemia E78.00 Assessment & Plan Assessment & Plan (1) Spinal abscess: Comment: He has been doing better but still has some weakness Code(s): M46.20 - Osteomyelitis of vertebra, site unspecified Category: Medical Plan: Patient having a spinal abscess. He was seen by infectious disease and continued on IV antibiotics as prescribed by [facility]. He does not yet have an appointment to follow up with Neurosurgery and believes he would likely will not be back to see his provider at [facility]. Referral was placed to [facility] Neurosurgery today for further evaluation and treatment. Advised patient to reach out if he does not receive a phone call to schedule this appointment. He does continue to have pain in the back and lower extremities I did advised him to follow up with his neurosurgeon in the meantime would prescribe short course of oxycodone to be used only as needed for extreme pain. (2) Diabetes mellitus: Code(s): E11.9 - Type 2 diabetes mellitus without complications Category: Medical Plan: Decrease the amount of carbohydrates such as pasta, bread, rice, and potatoes and limit the amount of sweets. Although fruits are generally healthy they should be eaten in moderation as they are still high in sugar. Hemoglobin A1c goal of less than 7%. Most recent A1c 7.0% plan to repeat in 2 months. (3) Cirrhosis: Code(s): K74.60 - Unspecified cirrhosis of liver Category: Medical Plan: Patient was found to have cirrhosis after most recent hospitalization. Referral was placed to GI today as he has not established with a GI provider as of yet. Avoid liver irritants such as Tylenol and alcohol use. (4) Hypercholesterolemia: Code(s): E78.00 - Pure hypercholesterolemia, unspecified Category: Medical Plan: Avoid foods that are high in cholesterol such as red meat, fried foods, eggs and baked goods. Triglyceride goal of less than 150 and LDL goal of less than 100. Plan The patient will be referred to neurosurgery for evaluation and management of the spinal abscess, as it is beyond the scope of primary care management. A referral to a GI specialist is also planned to address the cirrhosis diagnosis and to clarify its etiology, given the conflicting reports of alcoholic versus nonalcoholic cirrhosis. The patient will continue with physical therapy and occupational therapy to improve mobility and manage neuropathy symptoms. Diabetes management will focus on monitoring blood glucose levels and A1c, with an emphasis on dietary management and weight monitoring due to recent significant weight loss. Pain management will include a limited prescription of oxycodone for severe pain, with a preference for Tylenol to minimize opioid use. This note was constructed using voice recognition software. While every effort has been made to ensure accuracy and atmospheric chemist, still areas may have been included sometimes these areas may affect the content or meeting of the given symptoms. Total time spent caring for the patient today was 30 minutes. This includes time spent before the visit reviewing the chart, time spent during the visit, and time spent after the visit and documentation. Patient was informed and verbally consented to the use of an ambient scribe for clinic note documentation during this visit. Orders: Orders Comprehensive Met. Panel Today K75.81 - Nonalcoholic steatohepatitis (RIVERA), Z00.00 - Encounter for general adult medical examination without abnormal findings Referrals Gastroenterology Referral K74.60 - Unspecified cirrhosis of liver, K75.81 - Nonalcoholic steatohepatitis (RIVERA), R17 - Unspecified jaundice Neurosurgery Referral M46.20 - Osteomyelitis of vertebra, site unspecified Medications: New oxycodone 10 mg PO TID PRN 15 tabs 0RF pain
[2024-09-26 09:28] VITALS: BP 130/72; PULSE 110; TEMP 36.3; O2SAT 96; BMI 38.7
--- OUTSIDE RECORDS SUMMARY | 2024-09-26 10:00 | XMS_ITS | Clinical Summary ---
Author Organization [facility] Address [address] [place] [id number] Care Team Providers Care Split And Drum Room Supervisor Name Role Phone Melanie Cummins Primary Care Provider [phone] Allergies No known active allergies Medications Medication [...] 86 06/09/2022 9:50 AM EDT Temperature 37 C (98.6 F) 06/09/2022 9:50 AM EDT Respiratory Rate - [...] season) 2023 01/28/2021, 06/05/2020, 05/15/2020 Influenza Vaccine (Season Ended) 2024 RSV Adult > 60+ Yrs or (1 - 1-dose 75+ series) 12/03/2038 Hepatitis B Vaccines Aged Out No long er eligible based on patient's age to complete this topic RSV Ped < 20 months Aged Out No longe r eligible based on patient's age to complete this topic Care Teams Split And Drum Room Supervisor Relationship Specialty Start Date End Date Melanie Cummins PA PCP - General Physician Shade Cutter 12/09/21
--- OUTSIDE RECORDS SUMMARY | 2024-09-26 10:00 | XMS_ITS | Data Portability ---
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3-plt 219 Not available 08/15/2024 15:59:36 08/17/2024 08/17/2024 Labs 07/31: Na 132-K 4.3-bun 13-cr 0.5-wbc 9.4-hgb 9.7-hct 30.1-plt 214-glucose 221-total bili 4.7 Labs 08/14: Na 132-3.9-bun 9-cr 0.5-wbc 6.3-hgb 9.3-hct 29.3-plt 219 Not available 08/17/2024 15:56:43 Plan of Treatment Reminders Order Date Submit Date Provider Last Modified By Organization Details Last Modified Time Details Appointments None record ed. Lab None record ed. Referral None record ed. Procedures None record ed. Surgeries None record ed. Imaging None record ed. Medication Orders None record ed. Patient TargetsNo targets recorded. Patient InstructionsNo instructions recorded. Reason for Referral None Reported. Problems Name Problem SNOMED Code Status Onset Date Resolution Date Notes Provider Name and Address Organization Details Recorded Time Sepsis 72282088 Active 2024 Not Available [facility] 18:36:59 Type 2 diabetes mellitus without complicati on 857625476 Active 2024 Not Available [facility] 18:37:00 Low back pain 786323427 Active 2024 Not Available [facility] 16:46:30 Alcoholic cirrhosis 257526259 Active 2024 Not Available [facility] 18:37:02 Hypo-osmol ality and or hyponatrem ia 642650328 Active 2024 Not Available [facility] 18:37:57 Pain of left knee region 242077302215 109 Active 2024 Not Available [facility] 18:38:00 Diffuse large B-cell lymphoma (tiffany/sys temic with skin involvemen t) 037649189 Active 2024 Not Available [facility] 16:46:31 Nerve root disorder 78766533 Active 2024 Not Available [facility] 18:38:11 Morbid obesity 346203685 Active 2024 Not Available [facility] 18:38:12 Acute kidney injury 76752882 Active 2024 Not Available [facility] 16:46:27 Lymphedema 792353681 Active 2024 Not Available [facility] 5 16:45:33 Muscle weakness 67301818 Active 2024 Not Available [facility] 5 16:39:11 Unsteady when standing 159037680 Active 2024 Not Available [facility] 5 16:46:28 Edema of lower extremity 570079245 Active 2024 Dk Bingham MD [address], [address], [place], [address], [facility] 5 12:05:12 Diffuse large B-cell lymphoma 162898025 Active 2024 Dk Bingham MD [address], [address], [place], [address], [facility] 5 12:05:17 Difficulty walking 901922358 Active 2024 Not Available [facility] 5 08:39:34 Problem Notes None recorded. Medical Equipment None Reported. Medications Name Sig Start Date Stop Date Status Note LastModified by Organization Details LastModified Time Hep Flush-10 (PF) 10 unit/mL intravenous solution Use 5 ml intraveno usly as needed for Sepsis Flush after each use with 0.9% Sodium Chloride 10ml then Heparin (10 units/ml) 5ml AND Use 5 ml intraveno usly in the morning for sepsis Flush midline after ach antibioti c use with 0.9% sodium chloride 10ml the heparin (10units/ ml) 5ml 2024 active Not Available Not Available Not Avai lable metformin 500 mg tablet Give 1 tablet by mouth two times a day for Type 2 DM Give with meals continue until 750 is available 2024 active Not Available Not Available Not Avai lable acetaminoph en 325 mg tablet Give 2 tablet by mouth three times a day for pain 2024 active Not Available Not Available Not Avai lable Normal Saline 0.9 % injection solution Use 10 ml intraveno usly in the morning for sepsis After Antibioti c therapy administr ation 2024 active Not Available Not Available Not Avai lable Bumex 1 mg tablet Give 1 tablet by mouth one time a day for EDEMA 2024 active Not Available Not Available Not Avai lable sildenafil 50 mg tablet Give 1 tablet by mouth every 24 hours as needed for Erectile Dysfuncti on 2024 active Not Available Not Available Not Avai lable Coreg 6.25 mg tablet Give 6.25 mg by mouth two times a day for HTN 2024 active Not Available Not Available Not Avai lable metformin 850 mg tablet Give 850 mg by mouth two times a day for DM 2024 active Not Available Not Available Not Avai lable Non-Aspirin Extra Strength 500 mg tablet Give 1 tablet by mouth every 4 hours as needed for Pain Do not exceed 3 grams in 24 hours AND Give 1 tablet by mouth every 4 hours as needed for Elevated temperatu re of 100.4 or greater Do not exceed 3 grams in 24 hours 2024 active Not Available Not Available Not Avai lable oxycodone 5 mg capsule Give 5 mg by mouth every 06 hours as needed for pain 2024 active Not Available Not Available Not Avai lable insulin lispro (U-100) 100 unit/mL subcutaneou s solution Inject as per sliding scale: if 200 - 249 = 2 units; 250 - 299 = 4 units; 300 - 349 = 6 units; 350 - 399 = 8 units; 400 - 999 = 10 units, subcutane ously before meals for Type 2 DM 2024 active Not Available Not Available Not Avai lable Laxative (sennosides ) 8.6 mg tablet Give 1 tablet by mouth every 24 hours as needed for Constipat ion 2024 active Not Available Not Available Not Avai lable ceftriaxone 10 gram solution for injection Use 2 gram intraveno usly one time only for 1 Day 08/06 completed Not Available Not Available Not Available spironolact one 50 mg tablet Give 1 tablet by mouth one time a day for Edema 2024 active Not Available Not Available Not Avai lable oxycodone 5 mg tablet Give 1 tablet by mouth every 6 hours as needed for pain May cause drowsines s. Avoid alcohol. 2024 active Not Available Not Available Not Avai lable Vitamin D3 25 mcg (1,000 unit) tablet Give 1 tablet by mouth one time a day for Supplemen t. 2024 active Not Available Not Available Not Avai lable Rocephin 2 gram intravenous piggyback Use 2 gram intraveno usly one time a day for Sepsis until 23:59 08/05 completed Not Available Not Available Not Available Humalog KwikPen (U-100) Insulin 100 unit/mL subcutaneou s Inject by subcutane ous route for 30 days. active Not Available Not Available No t Available epinephrine 0.3 mg/0.3 mL injection syringe Inject 0.3 ml intramusc ularly as needed for Anaphylax is, Loss of conscious ness Repeat one time in 3 to 5 minutes. 2024 active Not Available Not Available Not Avai lable sodium phosphates 19 gram-7 gram/197 mL enema Insert 1 unit rectally every 24 hours as needed for Constipat ion Use only if Bisacodyl Supposito ry is ineffecti ve 2024 active Not Available Not Available Not Avai lable CycloTENS Refill Tomasz 10 mg tablet and Electrode pads Give 1 tablet by mouth every 8 hours as needed for Muscle Spams 2024 active Not Available Not Available Not Avai lable Lidocaine Pain Relief 4 % topical patch Apply to lower back topically one time a day for Pain Managemen t Apply for 12 Hours in a 24 Hour period. Max dose = 3 patches. External use only. and remove per schedule 2024 active Not Available Not Available Not Avai lable lidocaine 5 % topical patch-adhes wilbur silicone combo pack Apply to back topically one time a day for Pain Managemen t Apply for only 12 hours in a 24 hour period. May dose = 3 patches. External use only. and remove per schedule 2024 active Not Available Not Available Not Avai lable OneLAX Bisacodyl 10 mg rectal suppository Insert 1 supposito ry rectally every 24 hours as needed for constipat ion Use if Senna is Ineffecti ve 2024 active Not Available Not Available Not Avai lable Vitals None Recorded Social History None recorded. Functional Status None recorded. Mental Status None recorded. Family History Nothing Reported. Medical History No medical history recorded. Immunizations Vaccine Type Date Status Note Provider Nam e and Address Organization Details Recorded Time Tdap 08/14/2023 completed Ludin Red-Andujar [facility], [facility] 07/31/2024 16:24:48 Tdap 01/29/2021 completed Ludin Red-Andujar [facility] 07/31/2024 16:24:54 influenza, unspecified formulation 01/29/2021 completed Uldin Teofilo-Andujar [facility] 07/31/2024 16:25:05 influenza, unspecified formulation 12/11/2021 completed Ludin Teofilo-Andujar [facility] 07/31/2024 16:25:17 Hep A, unspecified formulation 01/04/2009 completed Ludin Teofilo-Andujar [facility] 07/31/2024 16:25:37 Hep A, unspecified formulation 09/17/2009 completed Ludin Teofilo-Andujar [facility] 07/31/2024 16:25:41 SARS-COV-2 (COVID-19) vaccine, UNSPECIFIED 05/15/2020 completed Ludin Teofilo-Andujar [facility] 07/31/2024 16:25:54 SARS-COV-2 (COVID-19) vaccine, UNSPECIFIED 06/05/2020 completed [facility] Teofilo-Andujar [facility] 07/31/2024 16:25:59 SARS-COV-2 (COVID-19) vaccine, UNSPECIFIED 01/29/2021 completed [facility] Teofilo-Andujar [facility] 07/31/2024 16:26:04 SARS-COV-2 (COVID-19) vaccine, UNSPECIFIED 12/11/2021 completed [facility] Teofilo-Andujar [facility] 07/31/2024 16:26:08 Past Encounters Encounter ID Performer Location Encounter Start Date Encounter Closed Date Diagnosis/Indication Diagnosis SNOMED-CT Code Diagnosis ICD10 Code Diagnosis Note [id number] PRECIOUS HUTCHISON [address], [place] [address] 07/29/2024 09:02:38 08/31/2024 15:39:50 Gram positive sepsis 054938397 A41.89 Strep beta-hemol ytic group B with UNKNOWN source positive 07/20, 07/21; subsequent cultures x 2 negative; neg 2D echomainta in midline RUAcont IV rocpehn (ends 08/04)monito r cbc and fevers Asthenia 24263946 R53.1 admit to PT/OTmonit or progress with therapy Enzyme lev el - finding 735778773 R74.01 in setting of cirrhosis, mild ascites, hypovolemi c hyponatrem iastarted on spironolac tone/lasix inpatient work-up unrevealin g [facility] CMPneeds GI f/up Chronic low back pain 27 2243704 M54.42 M54.41 G89.29 recent MRI negative other than bugling discsstart sched tylenol 650 tidstart oxy 5 q6h prn x 5 daysmonito r pain and tolerance to therapy Type 2 radha betes mellitus 65728089 E11.69 E78.5 recent A1c 8.9cont home metforminm onitor blood sugars Essential hypertension 91518746 I10 not currently on BP medsmonito r need to start on medication srecently started on diuretic, now on bumex. [id number] [place] [address] 08/01/2024 09:22:20 08/08/2024 10:25:04 Gram positive sepsis 354427747 A41.89 bacteremia unknown source/Str ep beta-hemol ytic group B4/24 +Blood cx repeat blood cx 07/22 [id number] echocardio gram negative for any vegetation .CT scan chest and ultrasound abdomen showed cirrhosis and cholelithi asis otherwise no significan t findings.d ischarged on IV therapycon t ceftriaxon e 2 gm until 08/04/24 Asthenia 64968006 R53.1 cont PT/OT eval Type 2 radha betes mellitus 26836746 E11.69 E78.5 recent A1c 8.9, inpatient use of Lantus on his outpatient metformin Essential hypertension 88366801 I10 stable,not currently on BP medsmonito r need to start on medication srecently started on diuretic, now on bumex. [id number] [place] [address] 08/02/2024 10:52:06 08/10/2024 11:59:12 Morbid obesity 832454888 E66.01 Gram positive sepsis 194 803373 A41.89 Strep beta-hemol ytic group B with UNKNOWN source positive 07/20, 07/21; subsequent cultures x 2 negative; neg 2D echoon recommenda tion from ID, complete IV Rocephin 08/04/2024 Enzyme lev el - finding 838723668 R74.01 in setting of cirrhosis, mild ascites, hypovolemi c hyponatrem iastarted on spironolac tone/lasix inpatient work-up unrevealin g with plans for further care per [facility] GI/Liverre check labs when appropriat e Chronic low back pain 27 0188118 M54.42 M54.41 G89.29 recent MRI negative other than bugling discsmild exacerbati on likely sec to being in bed; monitor for nowNot unreasonab le to CHECK UA and electrolyt es with use of K-sparing diuretic and torsemide Pain of le ft knee region 0434757747 84290 M25.562 recent Ortho evaluation , dry tap Type 2 radha betes mellitus 56338204 E11.69 E78.5 recent A1c 8.9, inpatient use of Lantus on his outpatient metformin Diffuse la rge B-cell lymphoma 960146308 C83.3A in remission >10 yearsresid ual LEFT leg lymphedema Edema of l ower extremity 556907380 R60.0 recent doppler U/S negative. LEFT >>R Essential hypertension 13827490 I10 monitor on new diuretics; normal renal function but may benerif from YANCY-I/ARB Erectile dysfunction 860 244554 E11.69 N52.1 Ejection murmur 38318942 R01.1 appears to have had a transthora cic echo; continue to monitor; consider REBECCA if decompensa yoandy Asthenia 24787734 R53.1 PT/OT eval For resuscitation 284350 001 Z78.9 [id number] K[address] REDHÉCTOR [address] [place] [address] 08/03/2024 14:37:04 08/08/2024 11:42:50 Low back pain 768224642 M54.50 chronicrec ent MR lumbar spine showed multilevel degenerati ve changeson scheduled tylenol 650 mg TIDcontinu e oxycodone Q4 prn Pain of le ft knee region 6828739765 51610 M25.562 worsening pain most likely due to therapycon t apap and oxycodone Type 2 radha betes mellitus 80306648 E11.9 recent A1c 8.9no recent bgldiscuss ed with nursingacc ucheck TID with mealsstart lispro SSC coveragemo nitor need to add additional medication tx with lantus in acute care. [id number] [place] [address] 08/08/2024 09:52:21 08/10/2024 11:52:23 Low back pain 097470788 M54.50 stable chronicrec ent MR lumbar spine showed multilevel degenerati ve changeson scheduled tylenol 650 mg TIDcontinu e oxycodone Q4 prn Pain of le ft knee region 8491357545 90520 M25.562 stable today; lying in bedcont apap and oxycodone Type 2 radha betes mellitus 74152300 E11.9 recent A1c 8.94-5 days bgl mainly mid 200she is without s/sx of hyperglyce miacont accucheck TID with mealscont lispro SSC coverage consider adding metformin for better glucose control.tx with lantus in acute care. [id number] [place] [address] 08/10/2024 12:30:43 08/11/2024 10:58:58 Acute diarrhea 992068186 R19.7 resolvingr eportedly had 12-14 loose stoolsmost likely was given laxatives for previous c/o constipati onper nursing today, stool is soft.stool negative for cdiff. [id number] [place] [address] 08/15/2024 07:51:26 08/17/2024 09:58:52 Acute diarrhea 930449655 R19.7 resolved Low back pain 461297479 M54.50 stablerece nt MR lumbar spine showed multilevel degenerati ve changeson scheduled tylenol 650 mg TIDcontinu e oxycodone Q4 prn Pain of le ft knee region 2841341434 40727 M25.562 stableIncr ease pain after working with therapycon t apap and oxycodone Type 2 radha betes mellitus 23472813 E11.9 recent A1c 8.9accu-ch ecks mainly in the 200's before mealsasymp tomaticwil l increase metformin from 500 to 750 mg BIDdiscuss ed with nursingcon t accucheck TID with mealscont lispro SSC coveragemo nitor need to add additional medication tx with lantus in acute care. [id number] SINDI WATTS, KEV REDH[address]CTOR [address], [place] [address] 08/17/2024 08:42:55 08/25/2024 10:49:27 Low back pain 798181846 M54.50 stablerece nt MR lumbar spine showed multilevel degenerati ve changeson scheduled tylenol 650 mg TIDcontinu e oxycodone Q4 prn Pain of le ft knee region 6399784551 68315 M25.562 stableIncr ease pain after working with therapycon t apap and oxycodone Type 2 radha betes mellitus 27949122 E11.9 metformin now 750 mg BID- received first dose on 08/15 evening,co nt accucheck TID with mealscont lispro SSC coveragemo nitor need to add additional medication tx with lantus in acute care. [id number] MISBAH WARNER NP-C [address] [place] [address] 08/23/2024 11:42:25 08/25/2024 13:13:56 Low back pain 658674236 M54.50 stablerece nt MR lumbar spine showed multilevel degenerati ve changeson scheduled tylenol 650 mg TIDcontinu e oxycodone 5 mg q6h prncont salonpas to lower back dailycont flexeril 10 mg q8h prn for spasmsf/up with pcp Pain of le ft knee region 4980550908 08932 M25.562 stablehas pain after working with therapycon t apap and oxycodone as abovef/up with pcprecs to f/up with ortho on dc Type 2 radha betes mellitus 20267604 E11.9 many sugars still > 200 with increased metformini ncrease to metformin 850 mg bidcont accucheck tid w/ ss lispro coveragef/ up with pcp Gram positive sepsis 194 222876 A41.89 bacteremia unknown source/Str ep beta-hemol ytic group B4/24 +Blood cx repeat blood cx 07/22 negativeco mpleted IV antbx Asthenia 43803268 R53.1 completed PT/OT evalhome with services Essential hypertension 28867975 I10 majority of BP above goaldt h/o cirrhosis and mild tachycardi a with HR often in the low 100 range = bb will help with bothstart coreg 6.25 mg bidmonitor bp bid and repeat labs with pcp Cirrhosis of liver 90461 007 K74.69 w/ mild asciteson bumex and aldactonem onitor cmp in 4 weeksmonit or wts at homef/up with pcp Health Concerns Section Related Observation LastModified by Organization Detai ls LastModified Time None Recorded Concern Status LastModified by Organization Details LastModified Time None Recorded Advance Directives Directive None Recorded Payers Insurance Date Sequence Insurance Name Policy Number Policy Jacques Covered Member ID Jacques Member ID Guarantor Name 08/31/2024 1 [employer] [id number] [facility] [id number] [facility] 08/08/[address] [facility] (MEDICARE REPLACEMENT/A DVANTAGE - PPO) [id number] [facility] [id number] [facility] Notes Date Note Type Note Provider Name and Address Organization Details Recorded Time 08/08/2024 text/html 58 yr old male patient seen for acute rounding visit. Here for rehab for deconditioning and weakness secondary to sepsis bacteremia. Recently started on SSC for diabetes, accuchecks manly mid 200. denies associated sx. currently pain is controlled. KEV GARCIA [address] [facility], [address], [place], [address], [facility] [employer] 08/09/2024 22:02:29 08/10/2024 text/html 58 yr old male patient seen for acute rounding visit. Per nursing patient having diarrhea, concerned for possible infectious cause due to recent abx use. otherwise he is doing well, he previously had c/o constipation. STEPHAN GARCIAP [address] [facility], [address], [place], [address], [facility] [employer] 08/11/2024 03:12:31 08/15/2024 text/html 58 yr old male patient seen for acute rounding visit.Medically he has been stable, he continues to feel weak but states strength improving with therapy. Reports back pain and left knee pain 4/10 after working with therapy. otherwise pain is controlled with current meds. FS mainly in the 200's, options discussed. SINDI WATTSKEV RAMIREZ [address] [facility], [address], [place], [address], [facility] [employer] 08/15/2024 16:01:02 08/17/2024 text/html 58 yr old male patient seen for acute rounding visit. He is here for rehab servicesfor deconditioning and weakness secondary to sepsis bacteremia. currently he is doing ok, he will like to be tested for [place] virus, when asked why he states that his nephew had similar sx and was dx with wnv . I explained to him its unlikely he has wnv, he has been afebrile and other than weakness he has no sx other sx. briefly reviewed effects of sepsis bacteremia and recovery can last for months to years. KEV GARCIA [address] [facility], [address], [place], [address], [facility] 08/17/2024 16:29:32 08/23/2024 text/html 58 yr old male patient seen for discharge visit. He is here for rehab servicesfor deconditioning and weakness secondary to sepsis bacteremia. Pt completed work with therapy. He has been off IV antbx since 08/04. His BP is above goal. His HR is often elevated in the low 100 range. Blood sugars could use tighter control as well. Educated pt on increasing metformin and starting coreg. He is agreeable and understands directions. He will need f/up with his pcp. He report's he has established care with one. He will dc home tomorrow. He is medically clear at this time and will go home with meds and services in place. PRECIOUS HUTCHISON [address] [facility], [address], [place], [address], [facility] 08/23/2024 15:53:58
--- OUTSIDE RECORDS SUMMARY | 2024-09-26 10:00 | XMS_ITS | Data Portability ---
Author Organization [facility] [employer] [facility] Address [address] [place] [address] Assessment No assessment recorded. Plan of Treatment Reminders Order Date Submit Date Provider Last Modified By Organization Details Last Modified Time Details Appointments None recorded. Lab None recorded. Referral None recorded. Procedures None recorded. Surgeries None recorded. Imaging None recorded. Medication Orders cyclobenzap rine 10 mg tablet 2024 025 [facility]acy #[id number], [phone] [place], [address], 17:38:34 lidocaine 5 % topical patch 2024 025 [facility]acy #[id number], [phone] [place], [address], 17:41:20 Patient TargetsNo targets recorded. Patient Instructions Encounter Date Encounter Id Patient Instructions Last Modified By Organization Details Last Modified Time 07/18/2024 [id number] sciatica: exercises [id number] Not available 07/18/2024 17:38:32 Reason for Referral [...] Available Not Available Not Available amoxicillin 875 mg-potassiu m clavulanate 125 mg tablet 09/30 completed [...] SNOMED-CT Code Diagnosis ICD10 Code Diagnosis Note [id number] Carito Stevenson DO [address] [address] 07/18/2024 17:26:27 07/18/2024 17:46:35 Acute back pain with sciatica 043874411 M54.42 Discussed differenti al diagnosis including strain [...] Guarantor Name 07/18/2024 1 *SELF PAY* Luisa Alves 07/18/2024 1 *SELF PAY* Martin Joselyn [facility] Martinrene Alves Notes Date Note Type Note Provider Name [...] of back abnormalities. Carito Stevenson, DO [address] [facility] [address], [place], [address], [place] [facility] 07/18/2024 17:41:38
--- OUTSIDE RECORDS SUMMARY | 2024-09-26 10:00 | XMS_ITS | Clinical Summary ---
Author Organization Formerly [facility] Address [address] [place] [id number] Care Team Providers Care Fish Machine Feeder Name Role Phone System, Provider Not In Primary Care Provider Un available Allergies No known active allergies Medications bumetanide (BUMEX) 1 MG tablet Take 1 tablet (1 mg total) by mouth daily. Active aspirin (Aspirin 81) 81 MG chewable tablet Chew 325 mg. A ctive carvedilol (COREG) 6.25 MG tablet Take 1 tablet (6.25 mg total) by mouth 2 (two) times a day with meals. Active D3-1000 25 MCG (1000 UT) capsule Take 1 capsule (1,000 Units total) by mouth daily. Active cyclobenzaprine (FLEXERIL) 10 MG tablet Take 1 tablet (10 mg total) by mouth 3 times daily (every 8 hours) as needed. Active sildenafil (VIAGRA) 50 MG tablet Take 1 tablet (50 mg total) by mouth daily as needed for erectile dysfunction. Active spironolactone (ALDACTONE) 50 MG tablet Take 1 tablet (50 mg total) by mouth daily. 5 07/30/19 26 Active cefTRIAXone (ROCEPHIN) 2 g IV PushIndications: Epidural abscess Infuse 2 g into a venous catheter twice daily (every 12 hours). 5 Active oxyCODONE (ROXICODONE) 10 mg immediate release tabletIndication s:Epidural abscess Take 1 tablet (10 mg total) by mouth 4 times daily (every 6 hours) as needed for moderate pain or severe pain. Max Daily Amount: 40 mg 6 tablet 5 Active metFORMIN (GLUCOPHAGE) 500 MG tabletIndication s:Type 2 diabetes mellitus without complication, without long-term current use of insulin (HCC) Take 1 tablet (500 mg total) by mouth 2 (two) times a day with meals. 180 tablet 5 12/14/19 Active senna-docusate (SENNA-S) 8.6-50 MGIndications:Dr ug-induced constipation Take 1 tablet by mouth daily. 5 tablet 5 Active polyethylene glycol (miraLAx) 17 g packetIndication s:Drug-induced constipation Take 1 packet (17 g total) by mouth daily. 5 packet 5 Active metFORMIN (GLUCOPHAGE) 850 MG tablet Take 1 tablet (850 mg total) by mouth 2 (two) times a day with meals. 09/15/19 Discontinu ed(Stop Taking at Discharge) Active Problems Problem Noted Date Diagnosed Date Epidural abscess 09/06/2024 Other cirrhosis of liver 09/06/2024 Type 2 diabetes mellitus wit hout complication, without long-term current use of insulin 09/06/2024 Abscess 09/06/2024 Encounters Date Type Department Care Team Description 09/13/2024 7:45 AM EDT - 09/13/2024 8:56 AM EDT Surgery [facility] Radiology [address] [place] [address] [phone] Yemi Hernandez PA-C IR PICC Placement including Imaging w/o Pump or Port > 5 years 09/11/2024 11:07 AM EDT Anesthesia Event [facility] [place] [facility] - Cardiology [address] [place] [phone] Raj Turner MD Yano, Kyle, MD 09/11/2024 Travel 09/06/2024 8:10 PM EDT - 09/14/2024 12:44 PM EDT Hospital Encounter [facility] [address] [phone] Ruben Gómez MD Javed, Zohaib, MD Shrestha, Elina, MD Regelmann, David J, MD Farhan, Mariam, MD Mahali, Rakesh, MD Epidural abscess (Primary Dx); Bacteremia; Abscess; Type 2 diabetes mellitus without complication, without long-term current use of insulin (HCC); Drug-induced constipation Discharge Disposition: Home with Health Care Services 09/06/2024 Travel from Last 3 Months Social History Tobacco Use Types Packs/Day Years Used Date Smoking Tobacco: Never Smokeless Tobacco: Never Tobacco Cessation:Counseling Given: Not Answered [facility] Utilities Answer Date Recorded In the past 12 months has th e electric, gas, oil, or water company threatened to shut off services in your home? No 09/11/2024 AUDIT-C Answer Date Recorded Q1: How often do you have a drink containing alcohol? Never 09/06/2024 Q2: How many drinks containi ng alcohol do you have on a typical day when you are drinking? Patient does not drink Q3: How often do you have si x or more drinks on one occasion? Never 09/06/2024 Overall Financial Resource Strain (CARDIA) Answe r Date Recorded How hard is it for you to pa y for the very basics like food, housing, medical care, and heating? Not hard at all 09/11/2024 Hunger Vital Sign Answer Date Recorded Within the past 12 months, y ou worried that your food would run out before you got the money to buy more. Never true 09/12/19 25 Within the past 12 months, t he food you bought just didn't last and you didn't have money to get more. Never true 09/11/2024 PRAPARE - Transportation Answer Date Re corded In the past 12 months, has l ack of transportation kept you from medical appointments or from getting medications? No 08/27 In the past 12 months, has l ack of transportation kept you from meetings, work, or from getting things needed for daily living? No 09/11/2024 Housing Stability Vital Sign Answer Kunal e Recorded In the last 12 months, was t here a time when you were not able to pay the mortgage or rent on time? No 09/11/2024 In the past 12 months, how m any times have you moved where you were living? 0 09/11/2024 At any time in the past 12 m [facility], were you homeless or living in a long term (including now)? No 09/11/2024 Sex and Gender Information Value Date Recorded Sex Assigned at Male 09/06/2024 9:51 PM EDT Legal Sex Male 8:27 PM EDT Gender Identity Male 09/06/2024 9:51 PM EDT Sexual Orientation Heterosexual (straight) 09/06 9:51 PM EDT Last Filed Vital Signs Vital Sign Reading Time Taken Comments Blood Pressure 131/86 09/14/2024 7:58 AM EDT Pulse 85 09/14/2024 7:58 AM EDT Temperature 36.9 C (98.5 F) 09/14/2024 7:58 AM EDT Respiratory Rate 19 09/14/2024 7:58 AM EDT Oxygen Saturation 96% 09/14/2024 7:58 AM EDT Inhaled Oxygen Concentration - - Weight 137 kg (302 lb 11.1 oz) 09/06/2024 8:23 P M EDT Height 182.9 cm (6') 09/06/2024 8:23 PM EDT Body Mass Index 41.05 09/06/2024 8:23 PM EDT Plan of Treatment Health Maintenance Due Date Last Done Comments Hepatitis C Virus Screening 1965 Lipid Panel 12/03/1973 Ophthalmology Exam 12/03/1973 HIV Screening 12/03/1976 Microalbumin/Creatinine Ratio Urine 12/03/1981 DTaP/Tdap/Td Vaccines (1 - Tdap) 12/03/1982 Pneumococcal Vaccines 50+ (1 of 2 - PCV) 12/03/1982 Colonoscopy 12/03/2008 Zoster (Shingles) Vaccine (1 of 2) 12/03/2013 COVID-19 Vaccine ( season) 2023 12/11/2021, 01/29/2021, 01/28/2021, Additional history exists RSV Vaccine 60 years and older and Patients (1 - Risk 60-74 years 1-dose series) 2023 Hemoglobin A1C 10/19/2024 07/20/2024 Influenza Vaccine 10/27/2024 Foot Exam 09/11/2025 09/11/2024, 08/27, 09/11/2024, Additional history exists Creatinine with GFR 09/12/2025 09/12/2024, 09/11/2024, 09/10/2024, Additional history exists Hepatitis B Vaccines Aged Out No long er eligible based on patient's age to complete this topic Procedures Procedure Name Priority Date/Time Associated Diagnosis Comments POCT GLUCOSE, FINGERSTICK (POCGLU) (NO CHARGE) Routine 09/14/2024 7:56 AM EDT POCT GLUCOSE, FINGERSTICK (POCGLU) (NO CHARGE) Routine 09/13/2024 8:15 PM EDT POCT GLUCOSE, FINGERSTICK (POCGLU) (NO CHARGE) Routine 09/13/2024 4:40 PM EDT POCT GLUCOSE, FINGERSTICK (POCGLU) (NO CHARGE) Routine 09/13/2024 11:25 AM EDT POCT GLUCOSE, FINGERSTICK (POCGLU) (NO CHARGE) Routine 09/13/2024 9:00 AM EDT ENDOVASCULAR PROCEDURE Routine 8:19 AM EDT Abscess POCT GLUCOSE, FINGERSTICK (POCGLU) (NO CHARGE) Routine 09/12/2024 8:56 PM EDT POCT GLUCOSE, FINGERSTICK (POCGLU) (NO CHARGE) Routine 09/12/2024 4:39 PM EDT POCT GLUCOSE, FINGERSTICK (POCGLU) (NO CHARGE) Routine 09/12/2024 11:39 AM EDT ECG 12-LEAD Routine 09/12/2024 9:24 AM EDT POCT GLUCOSE, FINGERSTICK (POCGLU) (NO CHARGE) Routine 09/12/2024 7:47 AM EDT BASIC METABOLIC PANEL Routine 09/12/2024 6:39 AM EDT MAGNESIUM Routine 09/12/2024 6:39 AM EDT COMPLETE BLOOD COUNT, WITH DIFFERENTIAL Routine 09/12/2024 6:39 AM EDT POCT GLUCOSE, FINGERSTICK (POCGLU) (NO CHARGE) Routine 09/11/2024 8:42 PM EDT POCT GLUCOSE, FINGERSTICK (POCGLU) (NO CHARGE) Routine 09/11/2024 4:36 PM EDT POCT GLUCOSE, FINGERSTICK (POCGLU) (NO CHARGE) Routine 09/11/2024 1:03 PM EDT ECHOCARDIOGRAM TRANSESOPHAGEAL Routine 09/11/2024 11:53 AM EDT Bacteremia SED RATE SVESR Routine 09/11/2024 9:13 AM EDT C-REACTIVE PROTEIN Routine 09/11/2024 9: 13 AM EDT COMPLETE BLOOD COUNT, WITHOUT DIFFERENTIAL Routine 09/11/2024 9:13 AM EDT MAGNESIUM Routine 09/11/2024 9:13 AM EDT BASIC METABOLIC PANEL Routine 09/11/2024 9:13 AM EDT POCT GLUCOSE, FINGERSTICK (POCGLU) (NO CHARGE) Routine 09/11/2024 7:57 AM EDT POCT GLUCOSE, FINGERSTICK (POCGLU) (NO CHARGE) Routine 09/10/2024 9:33 PM EDT POCT GLUCOSE, FINGERSTICK (POCGLU) (NO CHARGE) Routine 09/10/2024 8:09 PM EDT POCT GLUCOSE, FINGERSTICK (POCGLU) (NO CHARGE) Routine 09/10/2024 4:38 PM EDT POCT GLUCOSE, FINGERSTICK (POCGLU) (NO CHARGE) Routine 09/10/2024 11:36 AM EDT POCT GLUCOSE, FINGERSTICK (POCGLU) (NO CHARGE) Routine 09/10/2024 7:58 AM EDT PHOSPHORUS Routine 09/10/2024 6:26 AM EDT MAGNESIUM Routine 09/10/2024 6:26 AM EDT BASIC METABOLIC PANEL Routine 09/10/2024 6:26 AM EDT POCT GLUCOSE, FINGERSTICK (POCGLU) (NO CHARGE) Routine 09/09/2024 8:44 PM EDT POCT GLUCOSE, FINGERSTICK (POCGLU) (NO CHARGE) Routine 09/09/2024 4:31 PM EDT POCT GLUCOSE, FINGERSTICK (POCGLU) (NO CHARGE) Routine 09/09/2024 12:21 PM EDT POCT GLUCOSE, FINGERSTICK (POCGLU) (NO CHARGE) Routine 09/08/2024 8:08 PM EDT POCT GLUCOSE, FINGERSTICK (POCGLU) (NO CHARGE) Routine 09/08/2024 4:12 PM EDT POCT GLUCOSE, FINGERSTICK (POCGLU) (NO CHARGE) Routine 09/08/2024 11:57 AM EDT POCT GLUCOSE, FINGERSTICK (POCGLU) (NO CHARGE) Routine 09/08/2024 7:33 AM EDT COMPREHENSIVE METABOLIC PANEL Routine 09/08/2024 6:10 AM EDT MAGNESIUM Routine 09/08/2024 6:10 AM EDT COMPLETE BLOOD COUNT, WITH DIFFERENTIAL Routine 09/08/2024 6:10 AM EDT PHOSPHORUS Routine 09/08/2024 6:10 AM EDT POCT GLUCOSE, FINGERSTICK (POCGLU) (NO CHARGE) Routine 09/07/2024 9:01 PM EDT POCT GLUCOSE, FINGERSTICK (POCGLU) (NO CHARGE) Routine 09/07/2024 4:40 PM EDT SODIUM, URINE, RANDOM Routine 09/07/2024 3:12 PM EDT ECHOCARDIOGRAM (TTE) COMPREHENSIVE (CONTRAST PRN) Routine 09/07/2024 2:32 PM EDT POCT GLUCOSE, FINGERSTICK (POCGLU) (NO CHARGE) Routine 09/07/2024 11:43 AM EDT POCT GLUCOSE, FINGERSTICK (POCGLU) (NO CHARGE) Routine 09/07/2024 9:06 AM EDT OSMOLALITY Routine 09/07/2024 7:41 AM EDT COMPLETE BLOOD COUNT, WITHOUT DIFFERENTIAL Routine 09/07/2024 7:41 AM EDT MAGNESIUM Routine 09/07/2024 7:41 AM EDT COMPREHENSIVE METABOLIC PANEL Routine 09/07/2024 7:41 AM EDT C-REACTIVE PROTEIN Routine 09/07/2024 7: 41 AM EDT SED RATE SVESR Routine 09/07/2024 7:41 AM EDT BLOOD CULTURE (HOSP LAB) Routine 09/07/2024 7:41 AM EDT BLOOD CULTURE (HOSP LAB) Routine 09/07/2024 1:26 AM EDT MRI LUMBAR SPINE W W/O CONTRAST Routine 09/07/2024 1:10 AM EDT XR KNEE 1 OR 2 VIEWS-LEFT Routine 09/06/2024 11:51 PM EDT PROTIME-INR Routine 09/06/2024 10:08 PM EDT PARTIAL THROMBOPLASTIN TIME (PTT) Routine 09/06/2024 10:08 PM EDT COMPLETE BLOOD COUNT, WITHOUT DIFFERENTIAL Routine 09/06/2024 10:08 PM EDT BASIC METABOLIC PANEL Routine 09/06/2024 10:08 PM EDT from Last 3 Months Results * (ABNORMAL) POCT Glucose, Fingerstick (09/14/2024 7:56 AM EDT) Only the most recent of29 resultswithin the time period is included. POC Glucose 125(H) 65 - 99 mg/dL 09/14/2024 8:03 AM EDT Comment:Notified RN Blood specimen / Unknown 09/14/2024 7:56 AM EDT 09/14/2024 8:03 AM EDT us Terry Foster MD POINT OF CARE TEST ORDERABLES F inal Result HOSPITAL LAB See Below * IR PICC PLACEMENT W/O PUMP OR PORT > 5 YRS (09/13/2024 8:19 AM EDT) Anatomical Region Laterality Modality X-Ray Angiograph y 09/13/2024 8:29 AM EDT Impressions 09/13/2024 9:34 AM EDT Successful single lumen Power PICC placement in the left upper extremity. Fluoroscopy time: 0.1 minutes. Fluoroscopic images: 1. Yemi Hernandez Dictated by: Yemi Hernandez Narrative 09/13/2024 9:34 AM EDT Clinical: 58-year-old male with epidural abscess requiring filler leaf cutter long IV antibiotics. OPERATORS: Darci Celis M.D.; Yemi Hernandez PA-C MEDICATIONS: Lidocaine 1%, sub-Q CONTRAST: None COMPLICATIONS: No immediate The procedure computer terminal operator maintained sterile precautions, including hand hygiene, cap, mask, sterile gloves and gown. The patient was placed supine on the interventional table. The left arm was prepped and draped in the usual sterile fashion. The computer terminal operator followed all elements of maximal sterile barrier technique including cap and mask, sterile gown and gloves, a large sterile sheet, hand hygiene, and ChloraPrep solution. Local anesthetic was infiltrated subcutaneously using 1% Lidocaine. The Basilic vein was visualized under concurrent realtime ultrasound guidance, deemed as patent and accessed using micropuncture technique. A sterile probe cover and gel were utilized. Ultrasound image documentation of needle entry into the Basilic vein was obtained. Under fluoroscopic guidance, a 5.5-Andorran peel-away sheath and guidewire were advanced. A 5-Andorran single lumen Power PICC measuring 50 centimeters was then placed with the tip at the atrial-caval junction. The position was checked and documented under fluoroscopy. Good blood flow was obtained through the ports. The catheter was sutured at the skin site and sterile dressing applied. The patient tolerated the procedure well. There were no immediate complications. Procedure Note Darci Celis MD - 09/14/2024 Clinical: 58-year-old male with epidural abscess requiring filler leaf cutter long IVantibiotics. OPERATORS: Darci Celis M.D.; Yemi Hernandez PA-C MEDICATIONS: Lidocaine 1%, sub-Q CONTRAST: None COMPLICATIONS: No immediate The procedure computer terminal operator maintained sterile precautions, including handhygiene, cap, mask, sterile gloves and gown. The patient was placed supineon the interventional table. The left arm was prepped and draped in theusual sterile fashion. The computer terminal operator followed all elements of maximal sterile barrier technique including capand mask, sterile gown and gloves, a large sterile sheet, hand hygiene,and ChloraPrep solution. Local anesthetic was infiltrated subcutaneouslyusing 1% Lidocaine. The Basilic vein was visualized under concurrent realtime ultrasound guidance, deemed aspatent and accessed using micropuncture technique. A sterile probe coverand gel were utilized. Ultrasound image documentation of needle entry intothe Basilic vein was obtained. Under fluoroscopic guidance, a 5.5-Andorran peel-away sheath and guidewirewere advanced. A 5-Andorran single lumen Power PICC measuring 50 centimeterswas then placed with the tip at the atrial-caval junction. The positionwas checked and documented under fluoroscopy. Good blood flow was obtained through the ports. The catheterwas sutured at the skin site and sterile dressing applied. The patienttolerated the procedure well. There were no immediate complications. IMPRESSION: Successful single lumen Power PICC placement in the left upper extremity. Fluoroscopy time: 0.1 minutes. Fluoroscopic images: 1. Yemi Hernandez Dictated by: Yemi Hernandez Yemi Hernandez PA-C CV ENDOVASCULAR ORDERABLES Edited Result - Final * ECG 12 lead (09/12/2024 9:24 AM EDT) Pathologist [facility] Ventricular rate 87 BPM EKG [facility] Atrial rate 87 BPM EKG [facility] P-R interval 154 ms EKG [facility] QRS duration 84 ms EKG [facility] Q-T interval 388 ms EKG [facility] QTC calculation (Bazett) 467 ms EKG [facility] P axis 20 degrees EKG [facility] R axis 45 degrees EKG [facility] T axis 64 degrees EKG [facility] 09/12/2024 9:24 AM EDT Narrative EKG [facility] - 09/12/2024 11:11 AM EDT Normal sinus rhythm Normal ECG No previous ECGs available Confirmed by MD Field Venu ([id number]) on 09/12/2024 11:11:17 AM Procedure Note Papo Field MD - 09/12/2024 Normal sinus rhythm Normal ECG No previous ECGs available Confirmed by MD Field Venu ([id number]) on 09/12/2024 11:11:17 AM us Terry Foster MD ECG ORDERABLES Final Result EKG [facility] * (ABNORMAL) Complete Blood Count, with Differential (09/12/2024 6:39 AM EDT) Only the most recent of2 resultswithin the time period is included. White Blood Cell Count 5.6 4.0 - 11.0 Thou/uL 09/12/2024 7:26 AM EDT [facility] Platelet Count 142(L) 150 - 450 Thou/uL 09/12/2024 7:26 AM EDT [facility] Hemoglobin 10.0(L) 13.0 - 17.7 g/dL 09/12/2024 7:26 AM EDT [facility] Hematocrit 31.0(L) 39.0 - 54.0 % 09/12/2024 7:26 AM EDT [facility] Red Blood Cell Count 3.34(L) 4.50 - 6.20 Mil/uL 09/12/2024 7:26 AM EDT [facility] MCV 93 80 - 100 fL 09/12/2024 7:26 AM EDT [facility] MCH 29.9 27.0 - 31.0 pg 09/12/2024 7:26 AM EDT [facility] MCHC 32.3 30.0 - 36.0 g/dL 09/12/2024 7:26 AM EDT [facility] RDW 14.1 11.5 - 14.5 % 09/12/2024 7:26 AM EDT [facility] MPV 11.0 7.5 - 12.5 fL 09/12/2024 7:26 AM EDT [facility] Neutrophils Auto 53.9 % 09/13/19 7:26 AM EDT [facility] Immature Granulocytes 0.2 % 09/12/2024 7:26 AM EDT [facility] Lymphocytes Auto 28.3 % 09/13/19 7:26 AM EDT [facility] Monocytes Auto 12.9 % 09/12/2024 7:26 AM EDT [facility] Eosinophils Auto 3.8 % 09/13/19 7:26 AM EDT [facility] Basophils Auto 0.9 % 09/12/2024 7:26 AM EDT [facility] Abs Neutrophils Auto 3.01 2.00 - 7.50 Thou/uL 09/12/2024 7:26 AM EDT [facility] Abs Immature Granulocytes 0.01 0.00 - 0.10 Thou/uL 09/12/2024 7:26 AM EDT [facility] Abs Lymphocytes Auto 1.58 1.50 - 4.50 Thou/uL 09/12/2024 7:26 AM EDT [facility] Abs Monocytes Auto 0.72 0.20 - 1.50 Thou/uL 09/12/2024 7:26 AM EDT [facility] Abs Eosinophils Auto 0.21 0.00 - 0.70 Thou/uL 09/12/2024 7:26 AM EDT [facility] Abs Basophils Auto 0.05 0.00 - 0.20 Thou/uL 09/12/2024 7:26 AM EDT [facility] Blood Blood specimen / Unknown 09/12/2024 6:39 AM EDT 09/12/2024 7:08 AM EDT us Terry Foster MD LAB BLOOD ORDERABLES Final Resu lt [facility] [address] [place] [address], * Magnesium (09/12/2024 6:39 AM EDT) Only the most recent of5 resultswithin the time period is included. Magnesium 1.7 1.6 - 2.6 mg/dL 09/12/2024 7:35 AM EDT [facility] Blood Blood specimen / Unknown 09/12/2024 6:39 AM EDT 09/12/2024 7:08 AM EDT us Terry Foster MD LAB BLOOD ORDERABLES Final Resu lt [facility] [address] [place] [address], [place] * (ABNORMAL) Basic Metabolic Panel (09/12/2024 6:39 AM EDT) Only the most recent of4 resultswithin the time period is included. Glucose 181(H) 74 - 106 mg/dL 09/12/2024 7:35 AM EDT [facility] Comment:Fasting: <100 mg/dL, Non-Fasting: <200 mg/dL (ADA 2004) Blood Urea Nitrogen (BUN) 10 9 - 23 mg/dL 09/12/2024 7:35 AM EDT [facility] Creatinine 0.5(L) 0.7 - 1.3 mg/dL 09/12/2024 7:35 AM EDT [facility] eGFR >90 >59 09/12/2024 7:35 AM EDT [facility] Comment:CKD-EPI (2020) in mL /min/1.73 sq meters. Sodium 133(L) 136 - 145 mmol/L 09/12/2024 7:35 AM EDT [facility] Potassium 4.1 3.4 - 4.5 mmol/L 09/12/2024 7:35 AM EDT [facility] Chloride 97(L) 98 - 107 mmol/L 09/12/2024 7:35 AM EDT [facility] CO2 28 20 - 31 mmol/L 09/12/2024 7:35 AM EDT [facility] Anion Gap 8 5 - 15 09/12/2024 7:35 AM EDT [facility] Calcium 8.5(L) 8.7 - 10.5 mg/dL 09/12/2024 7:35 AM EDT [facility] BUN/Creatinine Ratio 20 10.0 - 25.0 Ratio 09/12/2024 7:35 AM EDT [facility] Blood Blood specimen / Unknown 09/12/2024 6:39 AM EDT 09/12/2024 7:08 AM EDT us Terry Foster MD LAB BLOOD ORDERABLES Final Resu lt [facility] [address] [place] [address], [place] * ECHOCARDIOGRAM TRANSESOPHAGEAL (09/11/2024 11:53 AM EDT) Heart Rate 83 bpm BP Systolic 128 mmHg BP Diastolic 60 mmHg Height 72.00 inches Weight 302.00 lbs BSA 2.54 m2 Anatomical Region Laterality Modality Heart Ultrasound, Othe r Narrative 09/11/2024 1:35 PM EDT The left ventricle is normal in size. Left ventricular systolic function is normal. The right ventricle is normal in size. Right ventricular systolic function is normal. There is no thrombus in the left atrial appendage. The left atrial cavity is dilated. Appendage velocity is normal at greater than 40 cm/sec. The intra-atrial septum is intact with no evidence of shunt by color Doppler. No vegetations seen on valves. No hemodynamically significant abnormal valvular blood flow. There is no previous study for comparison in our system. Technical Details Doppler color flow mapping and pulsed wave and/or continuous wave with spectral doppler interrogation, complete, were performed during the study. Moderate sedation was given. Overall the study quality was good. Sedation was performed by anesthesiology. Left Ventricle The left ventricle is normal in size. Left ventricular systolic function is normal. Right Ventricle The right ventricle is normal in size. Right ventricular systolic function is normal. Left Atrium The left atrial cavity is dilated. Appendage velocity is normal at greater than 40 cm/sec. There is no thrombus in the left atrial appendage. Right Atrium Right atrial size is normal. The intra-atrial septum is intact with no evidence of shunt by color Doppler. Mitral Valve The mitral valve is structurally normal. There is mild mitral regurgitation. Tricuspid Valve The tricuspid valve is structurally normal. There is trace tricuspid regurgitation. Aortic Valve The aortic valve is tricuspid. There is no aortic regurgitation or stenosis. Ascending Aorta The aortic root dimension is normal. Study Details Consent was obtained for transesophageal echocardiography. Sedation was provided by anesthesia (see their flowsheet for details). Topical anesthesia was given.The transesophageal probe was inserted atraumatically into the esophagus by the workers compensation claims adjuster. With the patient in a supine position the probe was advanced to approximately 40 cm and the echocardiographic examination was completed. At the end of the examination the REBECCA probe was removed and the patient was then monitored by anesthesia. No apparent complications were noted from the procedure. Prior Study There is no previous study for comparison in our system. Wall Scoring Baseline Score Index: 1.00 The left ventricular wall motion is normal. us Larry Dempsey PA-C CV ECHO ORDERABLES Final Result * (ABNORMAL) Sed Rate (09/11/2024 9:13 AM EDT) Only the most recent of2 resultswithin the time period is included. Sedimentation Rate 98(H) 0 - 15 MM/HR 09/11/2024 11:03 AM EDT [facility] Blood Blood specimen / Unknown 09/11/2024 9:13 AM EDT 09/11/2024 9:42 AM EDT Terry Foster MD LAB BLOOD ORDERABLES Final Resu lt [facility] [address] [place] [address], * (ABNORMAL) Complete Blood Count WITHOUT Differential - Early AM (09/11/2024 9:13 AM EDT) Only the most recent of3 resultswithin the time period is included. White Blood Cell Count 6.0 4.0 - 11.0 Thou/uL 09/11/2024 9:58 AM EDT [facility] Platelet Count 144(L) 150 - 450 Thou/uL 09/11/2024 9:58 AM EDT [facility] Hemoglobin 10.3(L) 13.0 - 17.7 g/dL 09/11/2024 9:58 AM EDT [facility] Hematocrit 31.6(L) 39.0 - 54.0 % 09/11/2024 9:58 AM EDT [facility] Red Blood Cell Count 3.39(L) 4.50 - 6.20 Mil/uL 09/11/2024 9:58 AM EDT [facility] MCV 93 80 - 100 fL 09/11/2024 9:58 AM EDT [facility] [facility] MCH 30.4 27.0 - 31.0 pg 09/11/2024 9:58 AM EDT [facility] MCHC 32.6 30.0 - 36.0 g/dL 09/11/2024 9:58 AM EDT [facility] RDW 14.2 11.5 - 14.5 % 09/11/2024 9:58 AM EDT [facility] MPV 10.9 7.5 - 12.5 fL 09/11/2024 9:58 AM EDT [facility] Immature Platelet Fraction 3.5 1.2 - 8.6 % 09/11/2024 9:58 AM EDT [facility] Blood Blood specimen / Unknown 09/11/2024 9:13 AM EDT 09/11/2024 9:42 AM EDT us Rubi Hsieh MD LAB BLOOD ORDERABLES Final Resu lt [facility] [address] [place] [address], [place] * (ABNORMAL) C-Reactive Protein (09/11/2024 9:13 AM EDT) Only the most recent of2 resultswithin the time period is included. C-Reactive Protein 5.50(H) <1.00 mg/dL 09/11/2024 11:06 AM EDT [facility] Blood Blood specimen / Unknown 09/11/2024 9:13 AM EDT 09/11/2024 9:42 AM EDT us Terry Foster MD LAB BLOOD ORDERABLES Final Resu lt Performing Organization Address [facility]/[place] [address], * Phosphorus (09/10/2024 6:26 AM EDT) Only the most recent of2 resultswithin the time period is included. Phosphorus 2.9 2.4 - 5.1 mg/dL 09/10/2024 7:39 AM EDT [facility] Blood Blood specimen / Unknown 09/10/2024 6:26 AM EDT 09/10/2024 7:09 AM EDT Rubi Hsieh MD LAB BLOOD ORDERABLES Final Resu lt Performing Organization Address [facility] [place] [address], [place] * (ABNORMAL) Comprehensive Metabolic Panel (09/08/2024 6:10 AM EDT) Only the most recent of2 resultswithin the time period is included. Glucose 155(H) 74 - 106 mg/dL 09/08/2024 7:04 AM EDT [facility] Comment:Fasting: <100 mg/dL, Non-Fasting: <200 mg/dL (ADA 2005) Blood Urea Nitrogen (BUN) 9 9 - 23 mg/dL 09/08/2024 7:04 AM EDT [facility] Creatinine 0.6(L) 0.7 - 1.3 mg/dL 09/08/2024 7:04 AM EDT [facility] eGFR >90 >59 09/08/2024 7:04 AM EDT [facility] Comment:CKD-EPI (2020) in mL /min/1.73 sq meters. Sodium 134(L) 136 - 145 mmol/L 09/08/2024 7:04 AM EDT [facility] Potassium 4.2 3.4 - 4.5 mmol/L 09/08/2024 7:04 AM EDT [facility] Chloride 98 98 - 107 mmol/L 09/08/2024 7:04 AM EDT [facility] CO2 29 20 - 31 mmol/L 09/08/2024 7:04 AM EDT [facility] Calcium 8.4(L) 8.7 - 10.5 mg/dL 09/08/2024 7:04 AM EDT [facility] Alkaline Phosphatase 67 45 - 128 U/L 09/08/2024 7:04 AM EDT [facility] Aspartate Aminotrans (AST) 42(H) <34 U/L 09/08/2024 7:04 AM EDT [facility] Alanine Aminotrans (ALT) 11 10 - 49 U/L 09/08/2024 7:04 AM EDT [facility] Bilirubin, Total 1.7(H) 0.3 - 1.2 mg/dL 09/08/2024 7:04 AM EDT [facility] Protein, Total 6.2 5.7 - 8.2 g/dL 09/08/2024 7:04 AM EDT [facility] Albumin 2.9(L) 3.4 - 4.8 g/dL 09/08/2024 7:04 AM EDT [facility] BUN/Creatinine Ratio 15 10.0 - 25.0 Ratio 09/08/2024 7:04 AM EDT [facility] Globulin 3.3 1.5 - 3.9 g/dL 09/08/2024 7:04 AM EDT [facility] Albumin/Globulin Ratio 0.9(L) 1.5 - 2.5 Ratio 09/08/2024 7:04 AM EDT [facility] Anion Gap 7 5 - 15 09/08/2024 7:04 AM EDT [facility] Blood Blood specimen / Unknown 09/08/2024 6:10 AM EDT 09/08/2024 6:40 AM EDT Rajeev Jimenez MD LAB BLOOD ORDERABLES Final Result Performing Organization Address City/[facility]/ZIP Co de Phone Number [facility] [address] [place] [id number], [place] * Sodium, Urine, Random (09/07/2024 3:12 PM EDT) Sodium, Urine Random 55 mmol/L 09/07/2024 3:57 PM EDT [facility] Comment:Reference range not established for random specimen. Urine Urine specimen / Unknown 09/07/2024 3:12 PM EDT 09/07/2024 3:22 PM EDT Rajeev Jimenez MD URINE ORDERABLES Final Resu lt Performing Organization Address [facility] Co de Phone Number [facility] [address] [place] [address], [place] * ECHOCARDIOGRAM COMPREHENSIVE WITH CONTRAST (09/07/2024 2:32 PM EDT) IVS Mean (F:0.6-0.9, M:0.6-1.0) 1.3 cm IVS (F:0.6-0.9, M:0.6-1.0) 1.3 cm LVIDD Mean (F:3.8-5.2, M:4.2-5.8) 5.2 cm LVIDD (F:3.8-5.2, M:4.2-5.8) 5.2 cm LVIDS (F:2.2-3.5, M:2.5-4.0) 3.3 cm LVIDS (F:2.2-3.5, M:2.5-4.0) 3.3 cm LVOT diameter mean 2.1 cm LVOT diameter 2.1 cm PW Mean (F:0.6-0.9, M:0.6-1.0) 1.2 cm PW (F:0.6-0.9, M:0.6-1.0) 1.2 cm LV Diastolic Volume Mean 177.9 mL LV Diastolic Volume 178 mL LV Systolic Volume Mean 72.4 mL LV Systolic Volume 72 mL LVOT mn grad mean 3.7 mmHg LVOT mn grad 3.7 mmHg LVOT peak quan mean 1.3 m/s LVOT peak quan 1.3 m/s LVOT VTI MEAN 28.1 cm LVOT VTI 28.1 cm RV Free wall pk S' Mean 16.0 cm/s RV Free wall pk S' 16.0 cm/s LA volume Mean 118.6 mL LA volume 118.6 mL AV mean gradient mean 7.2 mmHg AV mean gradient 7.2 mmHg Ao peak quan mean 1.7 m/s Ao peak quan 1.7 m/s Ao VTI Mean 34.4 cm Ao VTI 34.4 cm MV Peak A-Wave Mean 78.5 cm/s MV Peak A-Wave 78.5 cm/s E wave decelartion time mean 169 ms E wave decelartion time 169 ms MV Peak E-Wave Mean 64.7 cm/s MV Peak E-Wave 64.7 cm/s MV E' Lateral Velocity Mean 13.09 cm/s MV E' Lateral Velocity 13.09 cm/s MV E' Septal Velocity Mean 8.51 cm/s MV E' Septal Velocity 8.51 cm/s MV peak gradient mean 3.6 mmHg MV peak gradient 3.6 mmHg MV mean gradient mean 1.7 mmHg MV mean gradient 1.7 mmHg MV VTI MEAN 26.4 cm MV VTI 26.4 cm Tapse Mean 2.4 cm Tapse 2.4 cm TR Peak Quan Mean 2.1 m/s TR Peak Quan 2.4 m/s Ascending aorta mean 3.4 cm Ascending aorta 3.4 cm Sinuses of Valsalva Mean 3.9 cm Sinuses of Valsalva 3.9 cm Inferior Vena Cava Diameter Mean 1.7 cm Inferior Vena Cava Diameter 1.7 cm Heart Rate 90 bpm BP Systolic 120 mmHg BP Diastolic 75 mmHg Height 72.00 inches Weight 302.00 lbs LV Mass Index (F:43-95, M:49-115) 103.8 g/m2 LA Volume Index (16-34) 46.7 mL/m2 LV Diastolic Volume Index (F:29-61, M:35-75) 70.1 mL/m2 LV Systolic Volume Index (F:8-24, M:11-31) 28.4 mL/m2 E/E' ratio 4.94 AV peak gradient 11.6 mmHg LVOT stroke volume 97 mL LVOT area 3.5 cm2 E/A ratio 0.82 MV valve area by continuity eq 3.7 cm2 AV LVOT peak gradient 6.8 mmHg Dimensionless Index 0.82 SVI 37 mL/m2 AV area by cont VTI 2.8 cm2 Ascending aorta Index 1.3 cm/m2 Sinuses of Valsalva Index 1.5 cm/m2 Valve area - Index 1.1 cm2/m2 LV mass 263.4 g Ruth BP EF (55-75) 60 % E/E' Average 6.3 E/E' Septal 7.6 E/E' Lateral 4.9 LVOT SI 38.33 mL/m2 LV RWT 0.46 Left Ventricular Cardiac Index 3.4 L/min/m2 Left Ventricular Cardiac Output 8.8 L/min BSA 2.54 m2 TR Peak Gradient 23 mmHg Est. RA pres 3 mmHg RVSP 26 mmHg PASP 26.0 mmHg Anatomical Region Laterality Modality Heart Ultrasound Narrative 09/07/2024 3:03 PM EDT The left ventricle is normal in size. Wall thickness is normal. Left ventricular systolic function is normal. The quantitative EF by 2D Ruth biplane is 60%. No wall motion abnormalities are present. There is abnormal relaxation. The right ventricle is normal in size. Right ventricular systolic function is normal. The left atrial cavity is moderately dilated. There is no evidence of vegetation on any valvular apparatus. The aortic root is mildly dilated. No hemodynamically significant valvular abnormalities detected. There is no previous study for comparison in our system. Technical Details Definity contrast was used during the study. Overall the study quality was fair. The study was difficult due to patient's body habitus. Left Ventricle The left ventricle is normal in size. Wall thickness is normal. Left ventricular systolic function is normal. The quantitative EF by 2D Ruth biplane is 60%. No wall motion abnormalities are present. There is abnormal relaxation. Right Ventricle The right ventricle is normal in size. Right ventricular systolic function is normal. Left Atrium The left atrial cavity is moderately dilated. Right Atrium Right atrial size is normal. Based on IVC diameter and collapse, right atrial pressure is estimated to be normal (3 mmHg). Mitral Valve The mitral valve is structurally normal. The mitral leaflets are mildly thickened. There is no mitral regurgitation. There is no evidence of vegetation on the mitral valve. Tricuspid Valve The tricuspid valve is structurally normal. There is trace tricuspid regurgitation. The estimated right ventricular systolic pressure is normal at 26 mmHg. There is no evidence of vegetation on the tricuspid valve. Aortic Valve The aortic valve is tricuspid. The aortic valve leaflets are mildly thickened.There is no aortic regurgitation or stenosis. There is no evidence of vegetation on the aortic valve. Pulmonic Valve The pulmonic valve is structurally normal. There is trace pulmonic regurgitation. There is no evidence of vegetation on the pulmonic valve. Ascending Aorta The aortic root is mildly dilated. Pericardium There is no pericardial effusion. Prior Study There is no previous study for comparison in our system. Rajeev Jimenez MD CV ECHO ORDERABLES Final Re sult * Blood Culture (09/07/2024 7:41 AM EDT) Only the most recent of2 resultswithin the time period is included. Culture Sterile after 5 days 09/12/2024 9:16 AM EDT [facility] Blood Blood specimen / Unknown 09/07/2024 7:41 AM EDT 09/07/2024 8:01 AM EDT Comment:Blood Soy Pickard MD LAB BLOOD ORDERABLES Final Resul t [facility] [address] [place] [address], [place] * OSMOLALITY (09/07/2024 7:41 AM EDT) Osmolality, Serum/Plasma 295 257 - 297 mOsm/Kg 09/07/2024 3:27 PM EDT [facility] 09/07/2024 7:41 AM EDT 09/07/2024 8:36 AM EDT Rajeev Jimenez MD LAB BLOOD ORDERABLES Final Result [facility] [address] [place] [address], [place] * MRI Lumbar spine w w/o contrast (09/07/2024 1:10 AM EDT) Anatomical Region Laterality Modality L-spine Magnetic Resonan ce 09/07/2024 8:54 AM EDT Impressions 09/07/2024 9:45 AM EDT 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 There is also suspected infectious synovitis at this level, with phlegmon extending into the neural foramen with severe bilateral foraminal stenosis impinging upon the bilateral exiting L4 nerve roots. Possibly early infectious marrow signal changes at the dorsal S1 vertebral body. Questionable edema and enhancement along the bilateral exiting S1 nerve roots, which may be reactive or infectious. Extensive edema in the prevertebral and posterior paraspinal soft tissues without discrete soft tissue abscess seen at this time. The findings were communicated to Dr. Hebert Galvez via telephone on September 07, 2024 at 9:30 AM. Narrative 09/07/2024 9:45 AM EDT CLINICAL INFORMATION: Rule out spinal abscess/osteomyelitis TECHNIQUE: Routine MRI Lumbar with and without IV contrast. IV Contrast: 10 cc intravenous Gadavist. COMPARISON: None FINDINGS: Of note, the axial T2 and precontrast T1 images do not appear to be properly cross-referencing the sagittal images. For the purposes of this dictation, the last well-formed disc space is denoted as L5-S1 as seen on series 11, image 11. There is T1 hypointense, T2/STIR hyperintense marrow signal with associated enhancement of the L4-L5 endplates. This more diffusely involves the L5 vertebral body. There is involvement of the bilateral L5 pedicle and pars and the right L4 pedicle, pars, as well as the bilateral L4-L5 articular processes. There is edema within the L4-L5 disc space. There is expansion of the bilateral right more so than left L4-L5 facet joints with associated edema and enhancement, compatible with synovitis.. There is marked periarticular edema and enhancement about the posterior paraspinal soft tissues as well as ventrally along the medial aspect of the iliopsoas musculature. There is thickened epidural enhancement ventrally extending from L4 superior endplate to the level of S1-S2. Thin linear foci of nonenhancement within the cystic enhancing tissue probably reflect small fluid-filled collection/abscesses. The collection at the L4 level measures approximately 0.2 cm in transverse dimension and 2.4 cm in craniocaudal dimension. Additional collection at the level of L5 measures approximately 0.3 cm in transverse dimension and 0.7 cm in craniocaudal dimension. There is also thinner dorsal epidural enhancement extending from the level of L3 mid endplate to the level of S1. No definite dorsal abscess is seen. There is resultant severe spinal canal stenosis with crowding and compression of the cauda equina nerve roots extending from L4 to L5, most pronounced at the L4-L5 disc level. At the L4-L5 level, there is effacement of the foraminal fat with severe bilateral foraminal stenosis impinging upon the exiting L4 nerve roots bilaterally, which are surrounded by phlegmonous change. There is questionable edema and enhancement along the exiting bilateral S1 nerve roots, which may be inflammatory/infectious. There may be early marrow signal changes posteriorly at the S1 level. No discrete soft tissue abscess is seen. Alignment: Lumbar lordosis is preserved. There is mild grade 1 retrolisthesis of L1 on L2, L2 on L3, L4, and L5 and S1. Vertebrae/Bone Marrow: See above Disc Levels: L1-2: There is a disc bulge eccentric to the right with asymmetric marked narrowing of the right subarticular zone. There is mild spinal canal stenosis. There is mild bilateral foraminal stenosis. L2-3: There is a mild disc bulge and facet arthropathy. There is no significant spinal canal stenosis. There is mild bilateral foraminal stenosis. L3-4: Diffuse disc bulge and facet arthropathy with encroachment upon the lateral recesses. There is mild to moderate spinal canal stenosis. There is moderate left and mild right foraminal stenosis L4-5: See above. There is severe spinal canal stenosis and severe bilateral foraminal stenosis. L5-S1: Phlegmonous changes as above of. There is facet arthropathy. There is mild spinal canal stenosis. There is moderate to severe bilateral foraminal stenosis. Spinal Canal/Conus: The distal cord and conus are normal in signal and caliber. The conus terminates at the L1 level. There is no definite enhancement of the cauda equina nerve roots. Please see above regarding discussion of the spinal canal. Procedure Note Dyana Jones MD - 09/07/2024 CLINICAL INFORMATION: Rule out spinal abscess/osteomyelitis TECHNIQUE: Routine MRI Lumbar with and without IV contrast. IV Contrast:10 cc intravenous Gadavist. COMPARISON: None FINDINGS: Of note, the axial T2 and precontrast T1 images do not appear to beproperly cross-referencing the sagittal images. For the purposes of thisdictation, the last well-formed disc space is denoted as L5-S1 as seen onseries 11, image 11. There is T1 hypointense, T2/STIR hyperintense marrow signal withassociated enhancement of the L4-L5 endplates. This more diffuselyinvolves the L5 vertebral body. There is involvement of the bilateral [id number] and pars and the right L4 pedicle, pars, as well as the bilateral L4-L5 articular processes. There is edema withinthe L4- L5 disc space. There is expansion of the bilateral right more sothan left L4-L5 facet joints with associated edema and enhancement,compatible with synovitis.. There is marked periarticular edema and enhancement about the posterior paraspinalsoft tissues as well as ventrally along the medial aspect of the iliopsoasmusculature. There is thickened epidural enhancement ventrally extendingfrom L4 superior endplate to the level of S1-S2. Thin linear foci of nonenhancement within the cysticenhancing tissue probably reflect small fluid-filled collection/abscesses.The collection at the L4 level measures approximately 0.2 cm in transversedimension and 2.4 cm in craniocaudal dimension. Additional collection at the level of L5 measuresapproximately 0.3 cm in transverse dimension and 0.7 cm in craniocaudaldimension. There is also thinner dorsal epidural enhancement extendingfrom the level of L3 mid endplate to the level of S1. No definite dorsal abscess is seen. There is resultantsevere spinal canal stenosis with crowding and compression of the caudaequina nerve roots extending from L4 to L5, most pronounced at the L4-L5disc level. At the L4-L5 level, there is effacement of the foraminal fat with severe bilateral foraminalstenosis impinging upon the exiting L4 nerve roots bilaterally, which aresurrounded by phlegmonous change. There is questionable edema andenhancement along the exiting bilateral S1 nerve roots, which may be inflammatory/infectious. There may be early marrow signal changes posteriorly at the S1 level. No discrete soft tissue abscess is seen. Alignment: Lumbar lordosis is preserved. There is mild grade 1retrolisthesis of L1 on L2, L2 on L3, L4, and L5 and S1. Vertebrae/Bone Marrow: See above Disc Levels: L1-2: There is a disc bulge eccentric to the right with asymmetric markednarrowing of the right subarticular zone. There is mild spinal canalstenosis. There is mild bilateral foraminal stenosis. L2-3: There is a mild disc bulge and facet arthropathy. There is nosignificant spinal canal stenosis. There is mild bilateral foraminalstenosis. L3-4: Diffuse disc bulge and facet arthropathy with encroachment upon thelateral recesses. There is mild to moderate spinal canal stenosis. Thereis moderate left and mild right foraminal stenosis L4-5: See above. There is severe spinal canal stenosis and severebilateral foraminal stenosis. L5-S1: Phlegmonous changes as above of. There is facet arthropathy. Thereis mild spinal canal stenosis. There is moderate to severe bilateralforaminal stenosis. Spinal Canal/Conus: The distal cord and conus are normal in signal andcaliber. The conus terminates at the L1 level. There is no definiteenhancement of the cauda equina nerve roots. Please see above regardingdiscussion of the spinal canal. IMPRESSION: Findings compatible with discitis osteomyelitis at L4-L5 with epiduralphlegmon and tiny abscesses, with resultant severe spinal canal stenosisand cauda equina equina nerve root compression spanning L4-L5. There is also suspected infectious synovitis at this level, with phlegmonextending into the neural foramen with severe bilateral foraminal stenosisimpinging upon the bilateral exiting L4 nerve roots. Possibly early infectious marrow signal changes at the dorsal S1 vertebralbody. Questionable edema and enhancement along the bilateral exiting S1 nerveroots, which may be reactive or infectious. Extensive edema in the prevertebral and posterior paraspinal soft tissueswithout discrete soft tissue abscess seen at this time. The findings were communicated to Dr. Hebert Galvez via telephoneon September 07, 2024 at 9:30 AM. us Soy Pickard MD [facility] [place] ORDERABLES Final Result * XR Knee 1 or 2 views-Left (09/06/2024 11:51 PM EDT) Anatomical Region Laterality Modality Knee Left Digital Radiogra phy 09/07/2024 1:17 AM EDT Impressions 09/07/2024 7:34 AM EDT No acute osseous abnormalities appreciated on plain film. Degenerative changes and suprapatellar joint effusion. Narrative 09/07/2024 7:34 AM EDT CLINICAL INFORMATION: Lt knee pain and swelling, in setting recent bactermia COMPARISON: None. TECHNIQUE: Two views of the LEFT knee. FINDINGS: Bones: No acute or suspicious osseous abnormalities. Joint: Narrowing of the medial joint space is noted. Suprapatellar joint effusion. Soft tissues: Unremarkable. Additional Findings: None. Procedure Note Adan Gonsalez MD - 09/07/2024 CLINICAL INFORMATION: Lt knee pain and swelling, in setting recentbactermia COMPARISON: None. TECHNIQUE: Two views of the LEFT knee. FINDINGS: Bones: No acute or suspicious osseous abnormalities. Joint: Narrowing of the medial joint space is noted. Suprapatellar jointeffusion. Soft tissues: Unremarkable. Additional Findings: None. IMPRESSION: No acute osseous abnormalities appreciated on plain film. Degenerative changes and suprapatellar joint effusion. us Soy [facility] ORDERABLE S Final Result * (ABNORMAL) Partial Thromboplastin Time (PTT) (09/06/2024 10:08 PM EDT) Anticoagulant NO ANTI COAGULANT MEDS 09/06/2024 9:52 PM EDT [facility] Partial Thromboplastin Time (PTT) 38(H) 26 - 37 seconds 09/06/2024 10:32 PM EDT [facility] Blood Blood specimen / Unknown 09/06/2024 10:08 PM EDT 09/06/2024 10:13 PM EDT us Soy Pickard MD LAB BLOOD ORDERABLES Final Resul t Performing Organization Address [facility] Co de Phone Number [address] * (ABNORMAL) Protime-INR (09/06/2024 10:08 PM EDT) Anticoagulant NO ANTI COAGULANT MEDS 09/06/2024 9:52 PM EDT [facility] Prothrombin Time (PT) 16.5(H) 10.0 - 13.5 seconds 09/06/2024 10:32 PM EDT [facility] INR 1.5 09/06/2024 10:32 PM EDT [facility] Comment:INR Therapeutic Rang es: Standard dose anticoagulant 2.0 to 3.0, High dose anticoagulant 2.5-3.5. Blood Blood specimen / Unknown 09/06/2024 10:08 PM EDT 09/06/2024 10:13 PM EDT us Soy Pickard MD LAB BLOOD ORDERABLES Final Resul t Performing Organization Address [facility] Co de Phone Number [address] from Last 3 Months Insurance R Advance Directives * Full Code (Latest Code Status on File) Date Activated Date Inactivated Comments 09/06/2024 10:01 PM Care Teams [employer] Relationship Specialty Start Date End Date System, Provider Not In PCP - General 09/06/24
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
--- OUTSIDE RECORDS SUMMARY | 2024-09-26 10:00 | XMS_ITS | Clinical Summary ---
Author Organization [facility] [address] Address [address], [address] [place] [address] Care Team Providers Care Rental Representative Name Role Phone Unavailable Primary Care Provider Unavailabl e Encounters Date Type Department Care Team Description 09/07/2024 Scanned Document [facility] [address] [place] [address] Yolanda Doll MD from Last [...] patient's age to complete this topic [place] [address] [address] [place] [address]
== END 2024-09-26 10:23 | disposition home or self-care (01) ==
LOC: HO.HMCH 09:23
DX: M46.20 Osteomyelitis of vertebra, site unspecified (principal); E11.9 Type 2 diabetes mellitus without complications; K74.60 Unspecified cirrhosis of liver; E78.00 Pure hypercholesterolemia, unspecified

== ENCOUNTER 2024-10-09 11:22 | Emergency (ER) | payer OTHER, SELFPAY ==
--- NOTE | ~2024-10-09 | XR_ITS ---
EXAMINATION: XR CHEST 1 VIEW HISTORY: Change mental status COMPARISON: Comparison is made with the prior examination dated 09/04/2024. FINDINGS: A single AP portable view of the chest performed at 12:42 PM is submitted. There is been interval placement of a left-sided PICC line with its tip in the superior vena cava approximately 2 cm above the cavoatrial junction. The lungs are expanded and clear. There is no pleural effusion, pneumothorax, or pulmonary vascular congestion. The heart is normal in size. The bones are intact. XR/XR chest 1V IMPRESSION: Left-sided PICC line placement as described. No acute cardiopulmonary abnormality. Electronically signed by: Viral Valdes MD 10/09/2024 12:57 PM EDT
--- NOTE | ~2024-10-09 | MR_ITS ---
EXAM: MRI lumbar spine without and with IV contrast TECHNIQUE: Multiplanar multisequence imaging was performed through the lumbar spine without and with IV contrast. INDICATION: Infection CONTRAST: 10 mL Gadavist PRIOR: September 06, 2024 FINDINGS: 5 non-rib bearing lumbar segments are assumed for numbering purposes. If level specific intervention is planned, correlate with an x-ray to ensure concordant numbering. The termination of conus medullaris is within normal limits at the level of lower L1. Again seen is gross abnormality involving L4 and L5. There is extensive marrow replacement involving the vertebral bodies. Previously, marrow signal changes or adjacent to the disc level. Now, marrow replacement extends to the superior endplate of L4 and inferior endplate of L5.] [place] posterior elements is similar to the prior. There is decreased signal on T1 imaging and hyperintensity on fluid sensitive sequences and concordant enhancement. There is fluid signal across the interbody space with peripheral enhancement after contrast. Fluid signal bulges posteriorly aspect of the thecal sac and results in severe spinal stenosis. There is also epidural thickening and hyperenhancement posterior to L5, S1, and S2. There are new marrow signal changes present in posterior S1 and S2 vertebral segments with decreased T1 signal and increased lucency sequences or enhancement concerning for contiguous spread of osteomyelitis. There is persistent severe foraminal narrowing at L4-5 and L5-S1 related to degenerative changes as well as inflammatory/infectious changes. Again seen is edema and hyperenhancement of the paraspinal musculature as well as adjacent iliopsoas musculature extending up to L2-3 and down to L5-S1, similar to the prior. MR/MR lumbar spine wo/w con IMPRESSION: Evidence of worsening osteomyelitis. There is increased extent of marrow signal changes and enhancement involving the vertebral bodies of L4 and L5. Previously there was sparing of the superior endplate of L4 and inferior endplate of L5, which is no longer the case. There is also evidence of new osteoarthritis involving posterior S1 and S2 sacral segments. There is evidence of synovitis at L4-5, bilaterally, septic synovitis involving the facet joint is not ruled out. There are changes consistent with discitis with an appearance similar to the prior. Severe spinal stenosis between L3-4 and L5-S1 is unchanged. There is increasing anterior epidural thickening with hyperenhancement and spinal stenosis below L5-S1 through S2-3. Stable cellulitis involving paraspinal and psoas muscles. Electronically signed by: Orlando Camarena MD 10/09/2024 03:59 PM EDT RP
[2024-10-09 11:37] VITALS: BP 140/79; PULSE 101; RESP 16; TEMP 36.4; O2SAT 97; BMI 36.6
--- NOTE | 2024-10-09 11:37 | ECG_ITS ---
Test Reason : flank pain Blood Pressure : */* mmHG Vent. Rate : 100 BPM Atrial Rate : 100 BPM P-R Int : 142 ms QRS Dur : 88 ms QT Int : 368 ms P-R-T Axes : 20 44 27 degrees QTcB Int : 474 ms Normal sinus rhythm Nonspecific ST and T wave abnormality Abnormal ECG When compared with ECG of 04-Sep-2024 15:08, No significant change was found Referred By: Osiris Romo Electronically Signed By: YAZ CRAWFORD
--- NOTE | 2024-10-09 11:39 | ED.BACK ---
HPI - Back Pain/Injury General Chief Complaint: General Medical Stated Complaint: abscess on spine Time Seen by Provider: 10/09/24 12:37 Source: patient, family and old records reviewed Mode of arrival: ambulatory Limitations: no limitations History of Present Illness ED Provider: DR. 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, chronic low back pain, Davis cirrhosis, bacteremia require hospitalization at [facility], patient was admitted to [facility] on 09/06 then was transferred to [facility] for management of epidural abscess patient currently with PICC line in receiving antibiotic return for as per family patient increased confusion and hallucination since yesterday, worsening of low back pain, pain has been 10/10 at rest patient can not get himself out of bed because severe pain can not take more than 2-3 steps, no urinary or stool incontinence, no fever, no chills patient overall feels worsening of his back pain even with 5 days' history of antibiotic via PICC line. Related Data Home Medications ?Medication ?Instructions ?Recorded ?Confirmed cyclobenzaprine 10 mg tablet 10 mg PO Q8H PRN muscle spasm 09/26/24 09/26/24 metformin 500 mg tablet 500 mg PO BID 09/26/24 09/26/24 Previous Rx's ?Medication ?Instructions ?Recorded cholecalciferol (vitamin D3) 25 25 mcg PO DAILY #90 caps 06/08/24 mcg (1,000 unit) capsule cefazolin 1 gram solution for 1 g IVPUSH Q8H #0 ea 09/06/24 injection lidocaine 4 % topical patch 1 patch transdermal DAILY #0 ea 09/06/24 (Lidocaine Pain Relief) lidocaine 5 % topical patch 1 patch topical DAILY #30 ea 09/23/24 oxycodone 10 mg tablet 10 mg PO TID PRN pain #14 tabs 10/05/24 Allergies Allergy/AdvReac Type Severity Reaction Status Date / Time No Known Allergies Allergy Verified 10/09/24 11:38 Review of Systems Review of Systems: All other systems are reviewed and are negative Constitutional: Reports as per HPI and Reports no additional constitutional complaints Eyes: Reports as per HPI and Reports no additional eye complaints Reports system reviewed and no additional complaints, except as documented Cardiovascular: Reports as per HPI and Reports no additional cardiovascular complaints Respiratory: Reports as per HPI and Reports no additional respiratory complaints Gastrointestinal: Reports as per HPI and Reports no additional gastrointestinal complaints Genitourinary: Reports no additional female genitourinary complaints Musculoskeletal: Reports no additional musculoskeletal complaints Skin/Breast: Reports system reviewed and no additional complaints, except as docu Psychiatric: Reports no additional psychiatric complaints Endocrine: Reports no additional endocrine complaints Hematologic/Lymphatic: Reports no additional hematologic/lymphatic complaints Allergic/Immunologic: Reports no additional allergic/immunologic complaints Reports system reviewed and no additional complaints, except as documented and Reports Abnormal speech present [facility] Past Medical History Medical History Stomach ulcer Stage Lola non-Hodgkin lymphoma Neuropathy Erectile dysfunction Diabetes mellitus Thrombocytopenia Low vitamin D level Hypercholesterolemia Gait instability Cirrhosis Jaundice DAVIS (nonalcoholic steatohepatitis) Surgical History History of hernia repair History of shoulder surgery Social History Social History Household Members: Spouse Household Members Other:: 2 Housing: House Are you a primary insurance healthcare representative to a significant other at home: No Do you presently have visiting nurse or other home services: Yes Alcohol intake: never Patient Tobacco Use Status: Never used Tobacco Tobacco use type: Cigarette Smoked in Last 30 Days: No e-Cigarette/Vaping Use: Never Used Second Hand Smoke Exposure: No Use of substances other than those prescribed or required for medical reasons: Yes Substance Use Type: Marijuana Substance Use Type Other:: Marijuana gummy for sleep Advance Directives: Yes Advance Directives on File: Yes Advance Directives Date on File: 09/04/24 Do you have a plan to hurt others: No Plan service: No Current occupational status: employed 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 Current occupational exposures/hazards: No Cognitive needs: No Hearing needs: No Vision needs: No Physical Exam Vital Signs: Vital Signs: Last Vital Signs Temp 97.2 F 10/09/24 15:40 Pulse 92 10/09/24 15:40 Resp 18 10/09/24 15:40 BP 154/83 H 10/09/24 15:40 Pulse Ox 98 10/09/24 15:40 O2 Del Method Room Air 10/09/24 15:40 BMI result Body Mass Index 36.6 Vital signs have been reviewed and appear to be correct. Blood pressure elevated. Heart rate normal. Respiratory rate normal. Temperature normal. Oxygen saturation normal. Appearance: Alert. Oriented X3. No acute distress. Head: Normal external exam. Normocephalic. Atraumatic. No Dutta signs noted. No raccoon eyes noted Eyes: PERRLA. EOMI. Conjunctiva and sclera normal. Eyelids normal. ENT: TM's Normal. Pharynx normal. Uvula midline. Moist mucous membranes. No trismus noted. No drooling noted. No muffled voice noted. Neck: Normal inspection. Neck supple. FROM. No adenopathy. Thyroid Normal. No meningeal signs. No neck mass noted. CVS: Normal heart rate and rhythm. Heart sound normal. No murmurs noted. Pulses normal throughout. Respiratory: No respiratory distress. Painless inspiration. Breath sounds normal. No wheezes/rales/rhonchi noted. Chest nontender. No accessory muscle usage noted or decreased air movement noted. Abdomen: Soft and nontender. Bowel sounds normal in all 4 quadrants. No distention noted. No organomegaly noted. No visible injury noted. Back: No CVA tenderness. Full range of motion noted. Skin: Skin warm and dry. Normal skin color. Normal skin turgor. No rashes/lesions/lacerations noted. Extremities: No lower extremity edema. Extremities exhibit normal range of motion. Extremities nontender. Neuro: Oriented X 3. Cranial nerve exam: II-XII are grossly intact No motor deficit. No sensory deficit. Reflexes normal. Course Course Course Narrative: 10/09/24 1139 LIVIER Omer This is a Rapid Medical Examination (RME) performed by Lori Romo PA-C in triage. Full HPI, ROS, assessment and treatment plan per primary provider in the Main ED. Hx: 58 yo M, hz of obesity, diabetes with neuropathy, stage IV non-Hodgkin lymphoma, chronic low back and knee pain, Davis, cirrhosis, currently on IV abx for epidural abscess, here w/ worsening lower back pain and confusion. family states he began hallucinating yesterday. his doctor today was concerned for elevated HR, sent here for further reval. Plan: labs, lactic, BC manager etl aware. LUMBAR MRI 09/06/24: IMPRESSION: Prevertebral compartment/epidural abscess/osteomyelitis L4-5 compressing the neural elements of the thecal sac and the exiting nerve roots more pronounced at L4-5 and extending into S1-2. Reevaluation(s) Reevaluation #1: 58-year-old male with history epidural abscess require PICC line and home IV antibiotic, patient came in for worsening of the pain, MRI is showing worsening of the osteomyelitis of L4 and L5 with persistent diskitis, case discussed with Dr. Charles at [facility], who accepted the patient to [facility] for further neurosurgical evaluation. Case discussed with hospitalist Dr. Hardy also agreed on the transfer the patient for a continuity of care and absence of neurosurgical service in our hospital. Will arrange for transportation. Time: 17:12 Medications Administered Discontinued Medications Generic Name Dose Route Start Last Admin Trade Name Freq PRN Reason Stop Dose Admin Gadobutrol 10 ml 10/09/24 15:13 10/09/24 15:13 Gadobutrol 10 Ml Vial IVPUSH 10/09/24 15:14 10 ml ONCE ONE Administration Hydromorphone HCl 2 mg 10/09/24 16:12 10/09/24 16:25 Hydromorphone Hcl 2 Mg/Ml Vial IVPUSH 10/09/24 16:13 2 mg ONCE ONE Administration Protocol Medical Decision Making Differential Diagnosis Differential Diagnoses: The differential diagnosis associated with the presentation includes (Epidural abscess, worsening of lumbar spine osteomyelitis, diskitis, cauda equina syndrome.) Admission/Observation Consideration of admission/observation: Escalation of care including admission/observation considered Consult Healthcare Provider Management of the patient was discussed with: Hospitalist (Dr. Hardy) Lab Data MDM Lab Attestation statement: I reviewed the patient's lab results. 10/09/24 12:24 10/09/24 12:24 Labs: Lab Results 10/09/24 10/09/24 10/09/24 Range/Units 12:24 12:26 15:57 WBC 4.3 L (4.8-10.8) X10*3/uL RBC 3.79 L (4.60-5.80) X10*6/uL Hgb 11.4 L (14.0-18.0) g/dl Hct 33.8 L (42.0-52.0) % MCV 89.2 (80.0-98.0) fL MCH 30.1 (27.0-33.0) pg MCHC 33.7 (31.0-36.0) g/dl RDW 14.4 (11.0-16.0) % Plt Count 143 L (160-400) X10*3/uL MPV 10.3 (9.4-12.4) fL Immature Gran % (Auto) 0.2 (0.0-0.4) % Neut % (Auto) 63.6 (45-73) % Lymph % (Auto) 23.1 (20-40) % Emanuel % (Auto) 9.8 (2-11) % Eos % (Auto) 2.8 (0-4) % Baso % (Auto) 0.5 (0-2) % Lymph # (Auto) 1.0 L (1.2-4.9) X10*3/uL Emanuel # (Auto) 0.4 (0.1-1.2) X10*3/uL Eos # (Auto) 0.1 (0.0-0.4) X10*3/uL Baso # (Auto) 0.0 (0.0-0.2) X10*3/uL Abs Immat Gran (auto) 0.01 (0.00-0.03) X10*3/uL Absolute Neuts (auto) 2.7 (2.0-8.3) x10*3/uL Absolute Nucleated RBC 0.000 (0.0-0.012) X10*3/uL Nucleated RBC % (auto) 0.0 (0.0-0.2) /100WBC ESR 88 H (0-15) MM/HR Sodium 140 (135-145) mmol/L Potassium 3.9 D (3.3-5.1) mmol/L Chloride 106 (96-108) mmol/L Carbon Dioxide 26 (22-29) mmol/L Anion Gap 12 (12-20) BUN 9 (9-16) mg/dL Creatinine 0.58 (0.5-1.4) mg/dL Estim Creat Clear Calc 183.0 Estimated GFR > 60 Random Glucose 179 H (60-115) mg/dL Lactic Acid 2.1 H* (0.5-2.0) mmol/L Lactic Acid F/U @ 2Hr 1.9 (0.5-2.0) mmol/L Calcium 8.9 (8.4-10.2) mg/dL Magnesium 1.8 (1.6-2.6) mg/dL Total Bilirubin 1.6 H (0.0-1.0) mg/dL AST 30 (5-37) U/L ALT 8 (0-40) U/L Alkaline Phosphatase 94 (39-117) U/L Ammonia 32 (13-55) umol/L C-Reactive Protein 6.03 H (< or = 0.50) mg/dL Total Protein 6.9 (6.5-8.0) g/dL Albumin 3.0 L (3.5-5.0) g/dL Lipase 7 L (8-78) U/L Independent Interpretation I performed an independent interpretation of an: MRI (Lumbar spine:Evidence of worsening osteomyelitis. There is increased extent of marrow signal changes and enhancement involving the vertebral bodies of L4 and L5. Previously there was sparing of the superior endplate of L4 and inferior endplate of L5, which is no longer the case. There is also ev) Radiology Impression Discussion of test interpretation with radiology: I have reviewed the radiologist's reading. Critical Care Time Critical Care Time Critical Care Time: Yes Total Critical Care Time: 40 Attestation: The patient was critically ill with a high probability of imminent or life-threatening deterioration. I spent greater than 30 minutes of discontinuous time evaluating the patient, delivering critical care at the bedside, discussing evaluating data with consultants. Critical care time does not include time spent performing separately billable procedures or teaching. Time spent performing critical care was 40 minutes. Discharge Plan Discharge Clinical Impression: Acute osteomyelitis of lumbar spine Patient Disposition: [facility] Transfer Details: [facility] Prescriptions: No Action lidocaine 5 % adhesive patch,medicated 1 patch topical DAILY Qty: 30 2RF Rx Instructions: leave on most painful area for up to 12 hrs oxycodone 10 mg tablet 10 mg PO TID PRN (Reason: pain) Qty: 14 0RF cefazolin 1 gram Recon Soln 1 g IVPUSH Q8H Qty: 0 0RF lidocaine [Lidocaine Pain Relief] 4 % Adhesive Patch,Medicated 1 patch transdermal DAILY Qty: 0 0RF Protocol: Apply to: Apply to: back metformin 500 mg tablet 500 mg PO BID cyclobenzaprine 10 mg tablet 10 mg PO Q8H PRN (Reason: muscle spasm) cholecalciferol (vitamin D3) 25 mcg (1,000 unit) capsule 25 mcg PO DAILY Qty: 90 3RF Print Language: Tamazight
[2024-10-09 12:43] LABS: MANUAL DIFF FLAG NO
[2024-10-09 12:49] LABS: Hematocrit 33.8 % (42.0-52.0); Hemoglobin 11.4 g/dl (14.0-18.0); Imm Gran Abs Auto 0.01 X10*3/uL (0.00-0.03); Imm Gran Pct Auto 0.2 % (0.0-0.4); Lymphocytes Absolute Auto 1.0 X10*3/uL (1.2-4.9); Mean Corpuscular HGB Conc 33.7 g/dl (31.0-36.0); Mean Corpuscular Hemoglobin 30.1 pg (27.0-33.0); Mean Corpuscular Volume 89.2 fL (80.0-98.0); NRBC Abs Auto 0.000 X10*3/uL (0.0-0.012); NRBC Pct Auto 0.0 /100WBC (0.0-0.2); Platelet Count 143 X10*3/uL (160-400); Red Blood Count 3.79 X10*6/uL (4.60-5.80); White Blood Count 4.3 X10*3/uL (4.8-10.8)
[2024-10-09 12:53] LABS: Ammonia 32 umol/L (13-55)
[2024-10-09 12:57] VITALS: BP 136/68; PULSE 96; RESP 18; TEMP 36.7; O2SAT 96
[2024-10-09 13:00] LABS: Alanine Aminotransferase 8 U/L (0-40); Albumin Level 3.0 g/dL (3.5-5.0); Alkaline Phosphatase 94 U/L (39-117); Anion Gap 12 (12-20); Aspartate Amino Transferase 30 U/L (5-37); Blood Urea Nitrogen 9 mg/dL (9-16); Calcium 8.9 mg/dL (8.4-10.2); Carbon Dioxide 26 mmol/L (22-29); Chloride 106 mmol/L (96-108); Creatinine Clr Calc Pharmacy 183.0; Estimated Glomerular Filt Rate > 60; Lipase 7 U/L (8-78); Magnesium 1.8 mg/dL (1.6-2.6); Potassium 3.9 mmol/L (3.3-5.1); Sodium 140 mmol/L (135-145); Total Protein 6.9 g/dL (6.5-8.0)
--- NOTE | 2024-10-09 13:03 | PC.NURSE ---
Pt A&O X4 VSS NAD previous provider here to speak with pt. Pt states only complaint is back pain r/t hx of abscess. Pt with PICC line in place. area clean dry and not red. Dsg intact. Pt reported to be confused at home but now is A&O X4.
[2024-10-09 14:41] LABS: Reflex Lactate? Lactic Acid Added
[2024-10-09 15:40] VITALS: BP 154/83; PULSE 92; RESP 18; TEMP 36.2; O2SAT 98
--- NOTE | 2024-10-09 16:06 | PC.NURSE ---
Addendum entered by Hilda Lebron RN 10/09/24 16:07: Patient is a 58-year-old male with past medical history of non-Hodgkin lymphoma, neuropathy, diabetes mellitus, thrombocytopenia, hypercholesterolemia, jaundice, cirrhosis, spinal abscess last seen 05/2024 coming in for hospital discharge follow up. In review of the notes, patient was seen in [facility] ED 09/05/2024 after [facility] admission for strep bacteremia. Patient was discharged from [facility] and while at home was having back pain and difficulty walking started on ceftriaxone while in the hospital MRI of the lumbar spine revealed prevertebral epidural abscess with osteomyelitis. Patient was transported to [facility] in [facility]. Patient underwent PICC placement while at [facility] for IV treatment as the abscess was too small to be drained. Patient to continue on high-dose ceftriaxone for 6-8 weeks at home and follow up in 6 weeks. He was seen by [facility] ID 08/2024 stable continue with plan. Presenting with management of spinal abscess, jaundice, and diabetes mellitus. A spinal abscess was identified on MRI, requiring transfer to another facility for potential drainage, which was not performed due to the abscess size. The patient continues to experience increasing low back pain and neuropathy in the right foot, with ongoing physical therapy. Upon arrival patient sent for MRI and pending results. Alert and oriented. Sl jaundiced. Lungs essentially clear bilat. Respirations even and non-labored. c/o back pain increasing with movement. Abdomen large, soft, non-tender with positive bowel sounds. Positive pedal pulses with LE edema noted. Original Note: Medical History Stomach ulcer Stage Lola non-Hodgkin lymphoma Neuropathy Erectile dysfunction Diabetes mellitus Thrombocytopenia Low vitamin D level Hypercholesterolemia Gait instability Cirrhosis Jaundice RIVERA (nonalcoholic steatohepatitis)
[2024-10-09 16:17] LABS: ~Lactic Acid-LAB USE ONLY 1.9 mmol/L (0.5-2.0)
--- OUTSIDE RECORDS SUMMARY | 2024-10-09 17:00 | XMS_ITS ---
Author Name [facility] Organization Unknown Results Test Name/Text Value Interpretation Date Range Source POC Glucose 125.0 mg/dL Above high normal 09/14/2024 65 - 99 H[facility]CT POC Glucose 168.0 mg/dL Above high normal 09/14/2024 65 - 99 H[facility]CT POC Glucose 215.0 mg/dL Above high normal 09/13/2024 65 - 99 H[facility] POC Glucose 242.0 mg/dL Above high normal 09/13/2024 65 - 99 H[facility]CT POC Glucose 234.0 mg/dL Above high normal 09/13/2024 65 - 99 HHCCT POC Glucose 203.0 mg/dL Above high normal 09/13/2024 65 - 99 H[facility]CT POC Glucose 242.0 mg/dL Above high normal 09/12/2024 65 - 99 HHCCT POC Glucose 196.0 mg/dL Above high normal 09/12/2024 65 - 99 HHCCT POC Glucose 168.0 mg/dL Above high normal 09/12/2024 65 - 99 HHCCT Magnesium SerPl-mCnc 1.7 mg/dL 09/12/2024 1.6 - 2. 6 HHCCT Sodium SerPl-sCnc 133.0 mmol/L Below low normal 09/12/2024 1 36 - 145 HHCCT BUN SerPl-mCnc 10.0 mg/dL 09/12/2024 9 - [address] GFR/BSA.pred SerPlBld RKR-WDE-LmVJoj >90.0 09/12/2024 59 - HHCCT BUN/Creat SerPl 20.0 Ratio 09/12/2024 10 - 25 HH CCT Potassium SerPl-sCnc 4.1 mmol/L 09/12/2024 3.4 - 4 .5 HHCCT Chloride SerPl-sCnc 97.0 mmol/L Below low normal 09/12/2024 98 - 107 HHCCT Creat SerPl-mCnc 0.5 mg/dL Below low normal 09/12/2024 0.7 - 1.3 HHCCT CO2 SerPl-sCnc 28.0 mmol/L 09/12/2024 20 - 31 HH CCT Anion Gap Bld-sCnc 8.0 09/12/2024 5 - 15 HHCCT Glucose SerPl-mCnc 181.0 mg/dL Above high normal 09/12/2024 74 - 106 HHCCT Calcium SerPl-mCnc 8.5 mg/dL Below low normal 09/12/2024 8.7 - 10.5 HHCCT Eosinophil num Bld Auto 0.21 Thou/uL 09/12/2024 0 - 0.7 HHCCT MCH RBC Qn Auto 29.9 pg 09/12/2024 27 - [address] Neutrophils/leuk NFr Bld Auto 53.9 % 09/12/2024 HHCCT Hct VFr Bld Auto 31.0 % Below low normal 09/12/2024 39 - 54 HHCCT MCV RBC Auto 93.0 fL 09/12/2024 80 - 100 HHCCT Lymphocytes num Bld Auto 1.58 Thou/uL 09/12/2024 1.5 - 4.5 HHCCT Imm Granulocytes num Bld Auto 0.01 Thou/uL 09/12/2024 0 - 0.1 HHCCT Monocytes num Bld Auto 0.72 Thou/uL 09/12/2024 0.2 - 1.5 HHCCT RBC num Bld Auto 3.34 Mil/uL Below low normal 09/12/2024 4.5 - 6.2 HHCCT PMV Bld Auto 11.0 fL 09/12/2024 7.5 - 12.5 HHCCT Imm Granulocytes/leuk NFr Bld Auto 0.2 % 09/12/2024 HHCCT WBC num Bld Auto 5.6 Thou/uL 09/12/2024 4 - 11 HHCCT Neutrophils num Bld Auto 3.01 Thou/uL 09/12/2024 2 - 7.5 HHCCT Basophils num Bld Auto 0.05 Thou/uL 09/12/2024 0 - 0.2 HHCCT Eosinophil/leuk NFr Bld Auto 3.8 % 09/12/2024 HHCCT Hgb Bld-mCnc 10.0 g/dL Below low normal 09/12/2024 13 - 17.7 HHCCT MCHC RBC Auto-mCnc 32.3 g/dL 09/12/2024 30 - 36 HHCCT Platelet num Bld Auto 142.0 Thou/uL Below low normal 025 150 - 450 HHCCT RDW RBC Auto-Rto 14.1 % 09/12/2024 11.5 - 14.5 HHCCT Lymphocytes/leuk NFr Bld Auto 28.3 % 09/12/2024 HHCCT Basophils/leuk NFr Bld Auto 0.9 % 09/12/2024 HHCCT Monocytes/leuk NFr Bld Auto 12.9 % 09/12/2024 HHCCT POC Glucose 215.0 mg/dL Above high normal 09/12/2024 65 - 99 HHCCT POC Glucose 227.0 mg/dL Above high normal 09/11/2024 65 - 99 HHCCT POC Glucose 192.0 mg/dL Above high normal 09/11/2024 65 - 99 HHCCT CRP SerPl-mCnc 5.5 mg/dL Above high normal 09/11/2024 - 1 HHCCT ESR Bld Qn Westrgrn 98.0 MM/HR Above high normal 09/11/2024 0 - 15 HHCCT Creat SerPl-mCnc 0.6 mg/dL Below low normal 09/11/2024 0.7 - 1.3 HHCCT BUN/Creat SerPl 18.0 Ratio 09/11/2024 10 - 25 HH CCT CO2 SerPl-sCnc 28.0 mmol/L 09/11/2024 20 - 31 HH CCT BUN SerPl-mCnc 11.0 mg/dL 09/11/2024 9 - [address] Calcium SerPl-mCnc 8.5 mg/dL Below low normal 09/11/2024 8.7 - 10.5 HHCCT GFR/BSA.pred SerPlBld GJL-[id number]-PoABlq >90.0 09/11/2024 59 - HHCCT Anion Gap Bld-sCnc 8.0 09/11/2024 5 - 15 HHCCT Chloride SerPl-sCnc 97.0 mmol/L Below low normal 09/11/2024 98 - 107 HHCCT Potassium SerPl-sCnc 4.4 mmol/L 09/11/2024 3.4 - 4 .5 HHCCT Sodium SerPl-sCnc 133.0 mmol/L Below low normal 09/11/2024 1 36 - 145 HHCCT Glucose SerPl-mCnc 212.0 mg/dL Above high normal 09/11/2024 74 - 106 HHCCT Magnesium SerPl-mCnc 1.6 mg/dL 09/11/2024 1.6 - 2. 6 HHCCT Hct VFr Bld Auto 31.6 % Below low normal 09/11/2024 39 - 54 HHCCT RBC num Bld Auto 3.39 Mil/uL Below low normal 09/11/2024 4.5 - 6.2 HHCCT PMV Bld Auto 10.9 fL 09/11/2024 7.5 - 12.5 HHCCT RDW RBC Auto-Rto 14.2 % 09/11/2024 11.5 - 14.5 HHCCT MCV RBC Auto 93.0 fL 09/11/2024 80 - 100 HHCCT Hgb Bld-mCnc 10.3 g/dL Below low normal 09/11/2024 13 - 17.7 HHCCT MCH RBC Qn Auto 30.4 pg 09/11/2024 27 - [address] WBC num Bld Auto 6.0 Thou/uL 09/11/2024 4 - 11 HHCCT Platelet num Bld Auto 144.0 Thou/uL Below low normal 025 150 - 450 HHCCT MCHC RBC Auto-mCnc 32.6 g/dL 09/11/2024 30 - 36 HHCCT Immature Platelet Fraction 3.5 % 09/11/2024 1.2 - 8.6 HHCCT POC Glucose 190.0 mg/dL Above high normal 09/11/2024 65 - 99 HHCCT POC Glucose 198.0 mg/dL Above high normal 09/11/2024 65 - 99 HHCCT POC Glucose 216.0 mg/dL Above high normal 09/11/2024 65 - 99 HHCCT POC Glucose 213.0 mg/dL Above high normal 09/10/2024 65 - 99 HHCCT POC Glucose 217.0 mg/dL Above high normal 09/10/2024 65 - 99 HHCCT POC Glucose 195.0 mg/dL Above high normal 09/10/2024 65 - 99 HHCCT Calcium SerPl-mCnc 8.4 mg/dL Below low normal 09/10/2024 8.7 - 10.5 HHCCT Potassium SerPl-sCnc 4.4 mmol/L 09/10/2024 3.4 - 4 .5 HHCCT CO2 SerPl-sCnc 26.0 mmol/L 09/10/2024 20 - 31 HH CCT Chloride SerPl-sCnc 98.0 mmol/L 09/10/2024 98 - 10 7 HHCCT Glucose SerPl-mCnc 211.0 mg/dL Above high normal 09/10/2024 74 - 106 HHCCT BUN SerPl-mCnc 7.0 mg/dL Below low normal 09/10/2024 9 - 23 HHCCT Sodium SerPl-sCnc 132.0 mmol/L Below low normal 09/10/2024 1 36 - 145 HHCCT BUN/Creat SerPl 12.0 Ratio 09/10/2024 10 - 25 HH CCT Anion Gap Bld-sCnc 8.0 09/10/2024 5 - 15 HHCCT GFR/BSA.pred SerPlBld ZEC-GLD-MvBIfm >90.0 09/10/2024 59 - HHCCT Creat SerPl-mCnc 0.6 mg/dL Below low normal 09/10/2024 0.7 - 1.3 HHCCT Phosphate SerPl-mCnc 2.9 mg/dL 09/10/2024 2.4 - 5. 1 HHCCT Magnesium SerPl-mCnc 1.7 mg/dL 09/10/2024 1.6 - 2. 6 HHCCT POC Glucose 265.0 mg/dL Above high normal 09/10/2024 65 - 99 HHCCT POC Glucose 260.0 mg/dL Above high normal 09/09/2024 65 - 99 HHCCT POC Glucose 260.0 mg/dL Above high normal 09/09/2024 65 - 99 HHCCT POC Glucose 198.0 mg/dL Above high normal 09/09/2024 65 - 99 HHCCT POC Glucose 185.0 mg/dL Above high normal 09/08/2024 65 - 99 HHCCT POC Glucose 187.0 mg/dL Above high normal 09/08/2024 65 - 99 HHCCT POC Glucose 157.0 mg/dL Above high normal 09/08/2024 65 - 99 HHCCT CO2 SerPl-sCnc 29.0 mmol/L 09/08/2024 20 - 31 HH CCT ALT SerPl-cCnc 11.0 U/L 09/08/2024 10 - 49 HHCC T ALP SerPl-cCnc 67.0 U/L 09/08/2024 45 - 128 HHCC T Globulin Ser Calc-mCnc 3.3 g/dL 09/08/2024 1.5 - 3.9 HHCCT Anion Gap Bld-sCnc 7.0 09/08/2024 5 - 15 HHCCT Prot SerPl-mCnc 6.2 g/dL 09/08/2024 5.7 - 8.[address] Creat SerPl-mCnc 0.6 mg/dL Below low normal 09/08/2024 0.7 - 1.3 HHCCT AST SerPl-cCnc 42.0 U/L Above high normal 09/08/2024 - 34 HHCCT Chloride SerPl-sCnc 98.0 mmol/L 09/08/2024 98 - 10 7 HHCCT Albumin SerPl-mCnc 2.9 g/dL Below low normal 09/08/2024 3.4 - 4.8 HHCCT Albumin/Glob SerPl 0.9 Ratio Below low normal 09/08/2024 1.5 - 2.5 HHCCT Sodium SerPl-sCnc 134.0 mmol/L Below low normal 09/08/2024 1 36 - 145 HHCCT Glucose SerPl-mCnc 155.0 mg/dL Above high normal 09/08/2024 74 - 106 HHCCT Bilirub SerPl-mCnc 1.7 mg/dL Above high normal 09/08/2024 0. 3 - 1.2 HHCCT Calcium SerPl-mCnc 8.4 mg/dL Below low normal 09/08/2024 8.7 - 10.5 HHCCT BUN/Creat SerPl 15.0 Ratio 09/08/2024 10 - 25 HH CCT BUN SerPl-mCnc 9.0 mg/dL 09/08/2024 9 - 23 HHCC T GFR/BSA.pred SerPlBld LEP-GCZ-IeOQfq >90.0 09/08/2024 59 - HHCCT Potassium SerPl-sCnc 4.2 mmol/L 09/08/2024 3.4 - 4 .5 HHCCT Magnesium SerPl-mCnc 1.6 mg/dL 09/08/2024 1.6 - 2. 6 HHCCT Phosphate SerPl-mCnc 3.3 mg/dL 09/08/2024 2.4 - 5. 1 HHCCT Eosinophil/leuk NFr Bld Auto 3.6 % 09/08/2024 HHCCT Neutrophils/leuk NFr Bld Auto 56.5 % 09/08/2024 HHCCT Imm Granulocytes/leuk NFr Bld Auto 0.2 % 09/08/2024 HHCCT Monocytes/leuk NFr Bld Auto 10.9 % 09/08/2024 HHCCT Basophils/leuk NFr Bld Auto 0.7 % 09/08/2024 HHCCT Neutrophils num Bld Auto 3.12 Thou/uL 09/08/2024 2 - 7.5 HHCCT Imm Granulocytes num Bld Auto 0.01 Thou/uL 09/08/2024 0 - 0.1 HHCCT Hgb Bld-mCnc 9.7 g/dL Below low normal 09/08/2024 13 - 17.7 HHCCT MCH RBC Qn Auto 30.1 pg 09/08/2024 27 - [address] Basophils num Bld Auto 0.04 Thou/uL 09/08/2024 0 - 0.2 HHCCT RDW RBC Auto-Rto 14.3 % 09/08/2024 11.5 - 14.5 HHCCT RBC num Bld Auto 3.22 Mil/uL Below low normal 09/08/2024 4.5 - 6.2 HHCCT Platelet num Bld Auto 141.0 Thou/uL Below low normal 025 150 - 450 HHCCT Monocytes num Bld Auto 0.6 Thou/uL 09/08/2024 0.2 - 1.5 HHCCT PMV Bld Auto 11.2 fL 09/08/2024 7.5 - 12.5 HHCCT Lymphocytes num Bld Auto 1.55 Thou/uL 09/08/2024 1.5 - 4.5 HHCCT Eosinophil num Bld Auto 0.2 Thou/uL 09/08/2024 0 - 0.7 HHCCT Hct VFr Bld Auto 30.4 % Below low normal 09/08/2024 39 - 54 HHCCT WBC num Bld Auto 5.5 Thou/uL 09/08/2024 4 - 11 HHCCT Lymphocytes/leuk NFr Bld Auto 28.1 % 09/08/2024 [facility] MCV RBC Auto 94.0 fL 09/08/2024 80 - 100 HHCCT MCHC RBC Auto-mCnc 31.9 g/dL 09/08/2024 30 - 36 HHCCT POC Glucose 222.0 mg/dL Above high normal 09/08/2024 65 - 99 HHCCT POC Glucose 283.0 mg/dL Above high normal 09/07/2024 65 - 99 [facility] Sodium Ur-sCnc 55.0 mmol/L 09/07/2024 [facility] POC Glucose 201.0 mg/dL Above high normal 09/07/2024 65 - 99 [facility] POC Glucose 206.0 mg/dL Above high normal 09/07/2024 65 - 99 [facility] Osmolality SerPl 295.0 mOsm/Kg 09/07/2024 257 - 29 7 HHCCT ESR Bld Qn Westrgrn 92.0 MM/HR Above high normal 09/07/2024 0 - 15 HHCCT CRP SerPl-mCnc 5.1 mg/dL Above high normal 09/07/2024 - 1 [facility] MCH RBC Qn Auto 30.7 pg 09/07/2024 27 - [address] Platelet num Bld Auto 150.0 Thou/uL 09/07/2024 150 - 450 HHCCT RDW RBC Auto-Rto 14.3 % 09/07/2024 11.5 - 14.5 HHCCT RBC num Bld Auto 3.13 Mil/uL Below low normal 09/07/2024 4.5 - 6.2 HHCCT Hct VFr Bld Auto 28.6 % Below low normal 09/07/2024 39 - 54 HHCCT MCHC RBC Auto-mCnc 33.6 g/dL 09/07/2024 30 - 36 HHCCT WBC num Bld Auto 5.4 Thou/uL 09/07/2024 4 - 11 HHCCT Hgb Bld-mCnc 9.6 g/dL Below low normal 09/07/2024 13 - 17.7 HHCCT MCV RBC Auto 91.0 fL 09/07/2024 80 - 100 HHCCT PMV Bld Auto 11.0 fL 09/07/2024 7.5 - 12.5 HHCCT BUN/Creat SerPl 14.0 Ratio 09/07/2024 10 - 25 HH CCT Prot SerPl-mCnc 6.2 g/dL 09/07/2024 5.7 - 8.[address] CO2 SerPl-sCnc 27.0 mmol/L 09/07/2024 20 - 31 HH CCT Creat SerPl-mCnc 0.5 mg/dL Below low normal 09/07/2024 0.7 - 1.3 HHCCT Chloride SerPl-sCnc 98.0 mmol/L 09/07/2024 98 - 10 7 HHCCT Bilirub SerPl-mCnc 1.9 mg/dL Above high normal 09/07/2024 0. 3 - 1.2 HHCCT Calcium SerPl-mCnc 8.3 mg/dL Below low normal 09/07/2024 8.7 - 10.5 HHCCT GFR/BSA.pred SerPlBld QMQ-KBL-PrYXqs >90.0 09/07/2024 59 - HHCCT Anion Gap Bld-sCnc 6.0 09/07/2024 5 - 15 HHCCT ALT SerPl-cCnc 11.0 U/L 09/07/2024 10 - 49 HHCC T Albumin/Glob SerPl 0.9 Ratio Below low normal 09/07/2024 1.5 - 2.5 HHCCT Sodium SerPl-sCnc 132.0 mmol/L Below low normal 09/07/2024 1 36 - 145 HHCCT Albumin SerPl-mCnc 3.0 g/dL Below low normal 09/07/2024 3.4 - 4.8 HHCCT ALP SerPl-cCnc 67.0 U/L 09/07/2024 45 - 128 HHCC T Glucose SerPl-mCnc 191.0 mg/dL Above high normal 09/07/2024 74 - 106 HHCCT Potassium SerPl-sCnc 4.1 mmol/L 09/07/2024 3.4 - 4 .5 HHCCT Globulin Ser Calc-mCnc 3.2 g/dL 09/07/2024 1.5 - 3.9 HHCCT AST SerPl-cCnc 39.0 U/L Above high normal 09/07/2024 - 34 HHCCT BUN SerPl-mCnc 7.0 mg/dL Below low normal 09/07/2024 9 - 23 HHCCT Magnesium SerPl-mCnc 1.5 mg/dL Below low normal 09/07/2024 1 .6 - 2.6 HHCCT Creat SerPl-mCnc 0.7 mg/dL 09/07/2024 0.7 - 1.3 HH CCT Anion Gap Bld-sCnc 6.0 09/07/2024 5 - 15 HHCCT Sodium SerPl-sCnc 134.0 mmol/L Below low normal 09/07/2024 1 36 - 145 HHCCT Glucose SerPl-mCnc 270.0 mg/dL Above high normal 09/07/2024 74 - 106 HHCCT GFR/BSA.pred SerPlBld EUX-ZIE-YkJZpc >90.0 09/07/2024 59 - HHCCT BUN/Creat SerPl 13.0 Ratio 09/07/2024 10 - 25 HH CCT Potassium SerPl-sCnc 4.2 mmol/L 09/07/2024 3.4 - 4 .5 HHCCT BUN SerPl-mCnc 9.0 mg/dL 09/07/2024 9 - 23 HHCC T CO2 SerPl-sCnc 28.0 mmol/L 09/07/2024 20 - 31 HH CCT Calcium SerPl-mCnc 8.4 mg/dL Below low normal 09/07/2024 8.7 - 10.5 HHCCT Chloride SerPl-sCnc 99.0 mmol/L 09/07/2024 98 - 10 7 HHCCT INR PPP 1.5 09/07/2024 HHCCT Prothrombin time 16.5 seconds Above high normal 09/07/2024 1 0 - 13.5 HHCCT Anticoagulant NO ANTI COAGULANT MEDS 09/07/2024 HHCCT aPTT PPP 38.0 seconds Above high normal 09/07/2024 26 - 37 HHCCT Anticoagulant NO ANTI COAGULANT MEDS 09/07/2024 HHCCT RDW RBC Auto-Rto 14.1 % 09/07/2024 11.5 - 14.5 HHCCT Platelet num Bld Auto 146.0 Thou/uL Below low normal 025 150 - 450 HHCCT PMV Bld Auto 11.0 fL 09/07/2024 7.5 - 12.5 HHCCT MCV RBC Auto 94.0 fL 09/07/2024 80 - 100 HHCCT RBC num Bld Auto 3.37 Mil/uL Below low normal 09/07/2024 4.5 - 6.2 HHCCT MCH RBC Qn Auto 30.0 pg 09/07/2024 27 - [address] MCHC RBC Auto-mCnc 31.9 g/dL 09/07/2024 30 - 36 HHCCT WBC num Bld Auto 6.5 Thou/uL 09/07/2024 4 - 11 HHCCT Hct VFr Bld Auto 31.7 % Below low normal 09/07/2024 39 - 54 HHCCT Hgb Bld-mCnc 10.1 g/dL Below low normal 09/07/2024 13 - 17.7 HHCCT Encounters Encounter Type Encounter Reason Primary Diagnosis Location Date [facility] 10/03[facility]2024 [facility] 09/07/2024 Inpatient Extradural and subdural abscess, unspecified Extradural and subdural abscess, unspecified [facility] 09/06/2024 Care Team Organization Name Specialty Phone Email Start Date End [facility] 09/14/2024 [facility] 09/07/2024 10/06/2024 [facility] Primary [facility] 09/07/2024 [facility] 09/06/2024
--- OUTSIDE RECORDS SUMMARY | 2024-10-09 17:00 | XMS_ITS | Clinical Summary ---
Author Organization [facility] Address [address] [place] [address] Care Team Providers Care Drink Box Mechanic Name Role Phone System, Provider Not In [...] EDT - 09/13/2024 8:56 AM EDT Surgery [facility] Radiology [address] [place] [phone] Yemi Hernandez PA-C IR PICC Placement including Imaging w/o Pump or Port > 5 years 09/11/2024 11:07 AM EDT Anesthesia Event [facility] [place] [facility] - Cardiology [address] [place] [phone] Raj Turner MD Yano, Kyle, MD 09/11/2024 Travel 09/06/2024 8:10 PM EDT - 09/14/2024 12:44 PM EDT Hospital Encounter [facility] [address] [phone] Ruben Gómez MD Javed, Zohaib, MD Shrestha, [...] Tobacco: Never Tobacco Cessation:Counseling Given: Not Answered [facility] Utilities Answer Date Recorded In the past [...] any time in the past 12 m [facility], were you homeless or living in a fdc (including now)? No 09/11/2024 Sex and Gender [...] Clinical: 58-year-old male with epidural abscess requiring medical terminologist IV antibiotics. OPERATORS: Darci Celis M.D.; Yemi Hernandez PA-C MEDICATIONS: Lidocaine 1%, sub-Q CONTRAST: None COMPLICATIONS: No immediate The procedure cocoa powder mixer operator maintained sterile precautions, including hand hygiene, cap, mask, sterile gloves and gown. The patient was placed supine on the interventional table. The left arm was prepped and draped in the usual sterile fashion. The cocoa powder mixer operator followed all elements of maximal sterile [...] vein was obtained. Under fluoroscopic guidance, a 5.5-Nauruan peel-away sheath and guidewire were advanced. A 5-Nauruan single lumen Power PICC measuring 50 centimeters [...] Clinical: 58-year-old male with epidural abscess requiring penitentiary IVantibiotics. OPERATORS: Darci Celis M.D.; Yemi Hernandez PA-C MEDICATIONS: Lidocaine 1%, sub-Q CONTRAST: None COMPLICATIONS: No immediate The procedure cocoa powder mixer operator maintained sterile precautions, including handhygiene, cap, mask, sterile gloves and gown. The patient was placed supineon the interventional table. The left arm was prepped and draped in theusual sterile fashion. The cocoa powder mixer operator followed all elements of maximal sterile [...] vein was obtained. Under fluoroscopic guidance, a 5.5-Nauruan peel-away sheath and guidewirewere advanced. A 5-Nauruan single lumen Power PICC measuring 50 centimeterswas [...] 12 lead (09/12/2024 9:24 AM EDT) Pathologist [facility] Ventricular rate 87 BPM EKG [facility] [...] ECGs available Confirmed by MD Field Venu ([id number]) on 09/12/2024 11:11:17 AM Procedure Note Papo Field MD - 09/12/2024 Normal sinus rhythm Normal ECG No previous ECGs available Confirmed by MD Field Venu ([id number]) on 09/12/2024 11:11:17 AM us Terry Foster MD ECG ORDERABLES Final Result EKG [facility] * (ABNORMAL) Complete Blood Count, with Differential (09/12/2024 6:39 AM EDT) Only the most recent of2 resultswithin the time period is included. White Blood Cell Count 5.6 4.0 - 11.0 Thou/uL 09/12/2024 7:26 AM EDT [facility] Platelet Count 142(L) 150 - 450 Thou/uL 09/12/2024 7:26 AM EDT [facility] Hemoglobin 10.0(L) 13.0 - 17.7 g/dL 09/12/2024 7:26 AM EDT [facility] Hematocrit 31.0(L) 39.0 - 54.0 % 09/12/2024 7:26 AM EDT [facility] Red Blood Cell Count 3.34(L) 4.50 - 6.20 Mil/uL 09/12/2024 7:26 AM EDT [facility] MCV 93 80 - 100 fL 09/12/2024 7:26 AM EDT [facility] MCH 29.9 27.0 - 31.0 pg 09/12/2024 7:26 AM EDT [facility] MCHC 32.3 30.0 - 36.0 g/dL 09/12/2024 7:26 AM EDT [facility] RDW 14.1 11.5 - 14.5 % 09/12/2024 7:26 AM EDT [facility] MPV 11.0 7.5 - 12.5 fL 09/12/2024 7:26 AM EDT [facility] Neutrophils Auto 53.9 % 09/13/19 7:26 AM EDT [facility] Immature Granulocytes 0.2 % 09/12/2024 7:26 AM EDT [facility] Lymphocytes Auto 28.3 % 09/13/19 7:26 AM EDT [facility] Monocytes Auto 12.9 % 09/12/2024 7:26 AM EDT [facility] Eosinophils Auto 3.8 % 09/13/19 7:26 AM EDT [facility] Basophils Auto 0.9 % 09/12/2024 7:26 AM EDT [facility] Abs Neutrophils Auto 3.01 2.00 - 7.50 Thou/uL 09/12/2024 7:26 AM EDT [facility] Abs Immature Granulocytes 0.01 0.00 - 0.10 Thou/uL 09/12/2024 7:26 AM EDT [facility] Abs Lymphocytes Auto 1.58 1.50 - 4.50 Thou/uL 09/12/2024 7:26 AM EDT [facility] Abs Monocytes Auto 0.72 0.20 - 1.50 Thou/uL 09/12/2024 7:26 AM EDT [facility] Abs Eosinophils Auto 0.21 0.00 - 0.70 Thou/uL 09/12/2024 7:26 AM EDT [facility] Abs Basophils Auto 0.05 0.00 - 0.20 Thou/uL 09/12/2024 7:26 AM EDT [facility] Blood Blood specimen / Unknown 09/12/2024 6:39 AM EDT 09/12/2024 7:08 AM EDT us Terry Foster MD LAB BLOOD ORDERABLES Final Resu lt [facility] [address] [place] [address], * Magnesium (09/12/2024 6:39 AM EDT) Only the most recent of5 resultswithin the time period is included. Magnesium 1.7 1.6 - 2.6 mg/dL 09/12/2024 7:35 AM EDT [facility] Blood Blood specimen / Unknown 09/12/2024 6:39 AM EDT 09/12/2024 7:08 AM EDT us Terry Foster MD LAB BLOOD ORDERABLES Final Resu lt [facility] [address] [place] [address], [place] * (ABNORMAL) Basic Metabolic Panel (09/12/2024 6:39 AM EDT) Only the most recent of4 resultswithin the time period is included. Glucose 181(H) 74 - 106 mg/dL 09/12/2024 7:35 AM EDT [facility] Comment:Fasting: <100 mg/dL, Non-Fasting: <200 mg/dL (ADA 2004) Blood Urea Nitrogen (BUN) 10 9 - 23 mg/dL 09/12/2024 7:35 AM EDT [facility] Creatinine 0.5(L) 0.7 - 1.3 mg/dL 09/12/2024 7:35 AM EDT [facility] eGFR >90 >59 09/12/2024 7:35 AM EDT [facility] Comment:CKD-EPI (2020) in mL /min/1.73 sq meters. Sodium 133(L) 136 - 145 mmol/L 09/12/2024 7:35 AM EDT [facility] Potassium 4.1 3.4 - 4.5 mmol/L 09/12/2024 7:35 AM EDT [facility] Chloride 97(L) 98 - 107 mmol/L 09/12/2024 7:35 AM EDT [facility] CO2 28 20 - 31 mmol/L 09/12/2024 7:35 AM EDT [facility] Anion Gap 8 5 - 15 09/12/2024 7:35 AM EDT [facility] Calcium 8.5(L) 8.7 - 10.5 mg/dL 09/12/2024 7:35 AM EDT [facility] BUN/Creatinine Ratio 20 10.0 - 25.0 Ratio 09/12/2024 7:35 AM EDT [facility] Blood Blood specimen / Unknown 09/12/2024 6:39 AM EDT 09/12/2024 7:08 AM EDT us Terry Foster MD LAB BLOOD ORDERABLES Final Resu lt [facility] [address] [place] [address], [place] * ECHOCARDIOGRAM TRANSESOPHAGEAL (09/11/2024 11:53 AM [...] inserted atraumatically into the esophagus by the shingle inspector. With the patient in a supine position [...] - 15 MM/HR 09/11/2024 11:03 AM EDT [facility] Blood Blood specimen / Unknown 09/11/2024 9:13 AM EDT 09/11/2024 9:42 AM EDT Terry Foster MD LAB BLOOD ORDERABLES Final Resu lt [facility] [address] [place] [address], * (ABNORMAL) Complete Blood Count WITHOUT Differential - Early AM (09/11/2024 9:13 AM EDT) Only the most recent of3 resultswithin the time period is included. White Blood Cell Count 6.0 4.0 - 11.0 Thou/uL 09/11/2024 9:58 AM EDT [facility] Platelet Count 144(L) 150 - 450 Thou/uL 09/11/2024 9:58 AM EDT [facility] Hemoglobin 10.3(L) 13.0 - 17.7 g/dL 09/11/2024 9:58 AM EDT [facility] Hematocrit 31.6(L) 39.0 - 54.0 % 09/11/2024 9:58 AM EDT [facility] Red Blood Cell Count 3.39(L) 4.50 - 6.20 Mil/uL 09/11/2024 9:58 AM EDT [facility] MCV 93 80 - 100 fL 09/11/2024 9:58 AM EDT [facility] MCH 30.4 27.0 - 31.0 pg 09/11/2024 9:58 AM EDT [facility] MCHC 32.6 30.0 - 36.0 g/dL 09/11/2024 9:58 AM EDT [facility] RDW 14.2 11.5 - 14.5 % 09/11/2024 9:58 AM EDT [facility] MPV 10.9 7.5 - 12.5 fL 09/11/2024 9:58 AM EDT [facility] Immature Platelet Fraction 3.5 1.2 - 8.6 % 09/11/2024 9:58 AM EDT [facility] Blood Blood specimen / Unknown 09/11/2024 9:13 AM EDT 09/11/2024 9:42 AM EDT us Rubi Hsieh MD LAB BLOOD ORDERABLES Final Resu lt [facility] [address] [place] [address], [place] * (ABNORMAL) C-Reactive Protein (09/11/2024 9:13 AM EDT) Only the most recent of2 resultswithin the time period is included. C-Reactive Protein 5.50(H) <1.00 mg/dL 09/11/2024 11:06 AM EDT [facility] Blood Blood specimen / Unknown 09/11/2024 9:13 AM EDT 09/11/2024 9:42 AM EDT us Terry Foster MD LAB BLOOD ORDERABLES Final Resu lt Performing Organization Address City/[facility]/[place] [address], * Phosphorus (09/10/2024 6:26 AM EDT) Only the most recent of2 resultswithin the time period is included. Phosphorus 2.9 2.4 - 5.1 mg/dL 09/10/2024 7:39 AM EDT [facility] Blood Blood specimen / Unknown 09/10/2024 6:26 AM EDT 09/10/2024 7:09 AM EDT Rubi Hsieh MD LAB BLOOD ORDERABLES Final Resu lt Performing Organization Address [facility] [place] [address], [place] * (ABNORMAL) Comprehensive Metabolic Panel (09/08/2024 6:10 AM EDT) Only the most recent of2 resultswithin the time period is included. Glucose 155(H) 74 - 106 mg/dL 09/08/2024 7:04 AM EDT [facility] Comment:Fasting: <100 mg/dL, Non-Fasting: <200 mg/dL (ADA 2005) Blood Urea Nitrogen (BUN) 9 9 - 23 mg/dL 09/08/2024 7:04 AM EDT [facility] Creatinine 0.6(L) 0.7 - 1.3 mg/dL 09/08/2024 7:04 AM EDT [facility] eGFR >90 >59 09/08/2024 7:04 AM EDT [facility] Comment:CKD-EPI (2020) in mL /min/1.73 sq meters. Sodium 134(L) 136 - 145 mmol/L 09/08/2024 7:04 AM EDT [facility] Potassium 4.2 3.4 - 4.5 mmol/L 09/08/2024 7:04 AM EDT [facility] Chloride 98 98 - 107 mmol/L 09/08/2024 7:04 AM EDT [facility] CO2 29 20 - 31 mmol/L 09/08/2024 7:04 AM EDT [facility] Calcium 8.4(L) 8.7 - 10.5 mg/dL 09/08/2024 7:04 AM EDT [facility] Alkaline Phosphatase 67 45 - 128 U/L 09/08/2024 7:04 AM EDT [facility] Aspartate Aminotrans (AST) 42(H) <34 U/L 09/08/2024 7:04 AM EDT [facility] Alanine Aminotrans (ALT) 11 10 - 49 U/L 09/08/2024 7:04 AM EDT [facility] Bilirubin, Total 1.7(H) 0.3 - 1.2 mg/dL 09/08/2024 7:04 AM EDT [facility] Protein, Total 6.2 5.7 - 8.2 g/dL 09/08/2024 7:04 AM EDT [facility] Albumin 2.9(L) 3.4 - 4.8 g/dL 09/08/2024 7:04 AM EDT [facility] BUN/Creatinine Ratio 15 10.0 - 25.0 Ratio 09/08/2024 7:04 AM EDT [facility] Globulin 3.3 1.5 - 3.9 g/dL 09/08/2024 7:04 AM EDT [facility] Albumin/Globulin Ratio 0.9(L) 1.5 - 2.5 Ratio 09/08/2024 7:04 AM EDT [facility] Anion Gap 7 5 - 15 09/08/2024 7:04 AM EDT [facility] Blood Blood specimen / Unknown 09/08/2024 6:10 AM EDT 09/08/2024 6:40 AM EDT Rajeev Jimenez MD LAB BLOOD ORDERABLES Final Result Performing Organization Address City/[facility]/ZIP Co de Phone Number [facility] [address] [place] [address], [place] * Sodium, Urine, Random (09/07/2024 3:12 PM EDT) Sodium, Urine Random 55 mmol/L 09/07/2024 3:57 PM EDT [facility] Comment:Reference range not established for random specimen. Urine Urine specimen / Unknown 09/07/2024 3:12 PM EDT 09/07/2024 3:22 PM EDT Rajeev Jimenez MD URINE ORDERABLES Final Resu lt Performing Organization Address [facility] Co de Phone Number [facility] [address] [place] [address], [place] * ECHOCARDIOGRAM COMPREHENSIVE WITH CONTRAST (09/07/2024 [...] after 5 days 09/12/2024 9:16 AM EDT [facility] Blood Blood specimen / Unknown 09/07/2024 7:41 AM EDT 09/07/2024 8:01 AM EDT Comment:Blood Soy Pickard MD LAB BLOOD ORDERABLES Final Resul t [facility] [address] [place] [address], [place] * OSMOLALITY (09/07/2024 7:41 AM EDT) Osmolality, Serum/Plasma 295 257 - 297 mOsm/Kg 09/07/2024 3:27 PM EDT [facility] 09/07/2024 7:41 AM EDT 09/07/2024 8:36 AM EDT Rajeev Jimenez MD LAB BLOOD ORDERABLES Final Result [facility] [address] [place] [address], [place] * MRI Lumbar spine w w/o [...] body. There is involvement of the bilateral [id number] and pars and the right L4 pedicle, [...] at 9:30 AM. us Soy Pickard MD [facility] MRI ORDERABLES Final Result * XR Knee [...] ANTI COAGULANT MEDS 09/06/2024 9:52 PM EDT [facility] Partial Thromboplastin Time (PTT) 38(H) 26 - 37 seconds 09/06/2024 10:32 PM EDT [facility] Blood Blood specimen / Unknown 09/06/2024 10:08 PM EDT 09/06/2024 10:13 PM EDT us Soy Pickard MD LAB BLOOD ORDERABLES Final Resul t Performing Organization Address [facility] Co de Phone Number [address] * (ABNORMAL) Protime-INR (09/06/2024 10:08 PM EDT) Anticoagulant NO ANTI COAGULANT MEDS 09/06/2024 9:52 PM EDT [facility] Prothrombin Time (PT) 16.5(H) 10.0 - 13.5 seconds 09/06/2024 10:32 PM EDT [facility] INR 1.5 09/06/2024 10:32 PM EDT [facility] Comment:INR Therapeutic Rang es: Standard dose anticoagulant 2.0 to 3.0, High dose anticoagulant 2.5-3.5. Blood Blood specimen / Unknown 09/06/2024 10:08 PM EDT 09/06/2024 10:13 PM EDT us Soy Pickard MD LAB BLOOD ORDERABLES Final Resul t Performing Organization Address [facility] Co de Phone Number [address] from Last [address] [place] [address] Advance Directives * Full Code (Latest Code Status on File) Date Activated Date Inactivated Comments 09/06/2024 10:01 PM Care Teams Drink Box Mechanic Relationship Specialty Start Date End Date System, Provider Not In PCP - General 09/06/24
--- OUTSIDE RECORDS SUMMARY | 2024-10-09 17:00 | XMS_ITS | Data Portability ---
Author Organization [facility] [employer] [facility] Address [address] [place] [address] Assessment No assessment recorded. Plan of Treatment Reminders Order Date Submit Date Provider Last Modified By Organization Details Last Modified Time Details Appointments None recorded. Lab None recorded. Referral None recorded. Procedures None recorded. Surgeries None recorded. Imaging None recorded. Medication Orders cyclobenzap rine 10 mg tablet 2024 025 [facility][id number], [phone] [place], [phone], 17:38:34 lidocaine 5 % topical patch 2024 025 [facility] #[id number], [phone] [place], [address], 17:41:20 Patient TargetsNo targets recorded. Patient Instructions Encounter Date Encounter Id Patient Instructions Last Modified By Organization Details Last Modified Time 07/18/2024 [id number] sciatica: exercises [email or web address] Not available 07/18/2024 17:38:32 Reason for Referral [...] Not Available Not Available No t Available Vitals None Recorded Social History None recorded. Functional Status None recorded. Mental Status None recorded. Family History Nothing Reported. Medical History No medical history recorded. Past Encounters Encounter ID Performer Location Encounter Start Date Encounter Closed Date Diagnosis/Indication Diagnosis SNOMED-CT Code Diagnosis ICD10 Code Diagnosis Note [id number] Carito Stevenson DO [address] [phone] 07/18/2024 17:26:27 07/18/2024 17:46:35 Acute back pain with sciatica 713492739 M54.42 Discussed differenti al diagnosis including strain [...] Luisa Alves 07/18/2024 1 *SELF PAY* Martin Alves [facility] Alves 10/04/2024 2 [facility] [id number] Martin Alves [id number] Martin Alves Notes Date Note Type Note Provider [...] same. No hx of back abnormalities. Carito Stevenson DO [address] [facility] [address], [place], [address], [place] [facility] 07/18/2024 17:41:38
--- OUTSIDE RECORDS SUMMARY | 2024-10-09 17:00 | XMS_ITS | Clinical Summary ---
Author Organization [facility] [address] Address [address], [address] [place] [address] Care Team Providers Care Amusement Or Recreation Card Checker Name Role Phone Unavailable Primary Care Provider Unavailabl e Encounters Date Type Department Care Team Description 10/03/2024 Scanned Document [facility] [address] [place], [place] [id number] Yolanda Doll MD 09/07/2024 Scanned Document [facility] [address] [place] [address] Yolanda Doll MD from Last 3 Months [...] Procedure Name Priority Date/Time Associated Diagnosis Comments LAB SCAN Routine 10/02/2024 10:53 AM EDT from Last 3 Months Results * Lab Scan (10/02/2024 10:53 AM EDT) Yolanda Doll MD LAB BLOOD ORDERABLES Liliam l Result from Last 3 Months Insurance
--- OUTSIDE RECORDS SUMMARY | 2024-10-09 17:00 | XMS_ITS | Clinical Summary ---
Author Organization [facility] Address [address] [place] [address] Care Team Providers Care Tank Refinisher Name Role Phone Melanie Cummins Primary Care Provider [phone] Allergies No known active allergies Medications Medication [...] 2023 01/28/2021, 06/05/2020, 05/15/2020 Influenza Vaccine (#1) 2024 RSV Adult > 60+ Yrs or (1 - 1-dose 75+ series) 12/03/2038 Hepatitis B Vaccines Aged Out No long er eligible based on patient's age to complete this topic RSV Ped < 20 months Aged Out No longe r eligible based on patient's age to complete this topic Care Teams Tank Refinisher Relationship Specialty Start Date End Date Melanie Cummins PA PCP - General Physician Retail Financial Analyst 12/09/21
--- NOTE | 2024-10-09 19:06 | PC.NURSE ---
Report attempted x 4- first 3 attempted unsuccessful. Received an answer on the 4th attempt and floor unable to take report at this time.
[2024-10-09 19:39] VITALS: BP 154/83; PULSE 92; RESP 18; TEMP 36.2; O2SAT 98
--- NOTE | 2024-10-09 19:56 | PC.NURSE ---
report given to [facility]UIRRE on phone
== END 2024-10-09 19:41 | disposition short-term general hospital (02) ==
PROVIDERS: Physician Assistant Medical; Emergency Provider Emergency Medicine
DX: M46.26 Osteomyelitis of vertebra, lumbar region (principal); G06.2 Extradural and subdural abscess, unspecified; R10.9 Unspecified abdominal pain; M54.50 Low back pain, unspecified; C85.90 Non-Hodgkin lymphoma, unspecified, unspecified site; R41.0 Disorientation, unspecified; R44.3 Hallucinations, unspecified; G62.9 Polyneuropathy, unspecified; E11.9 Type 2 diabetes mellitus without complications; K75.81 Nonalcoholic steatohepatitis (NASH); Z79.84 Long term (current) use of oral hypoglycemic drugs; Z79.899 Other long term (current) drug therapy
CPT/HCPCS: 36415; 71045; 72158; 80053; 82140; 83605; 83690; 83735; 85025; 85652; 86140; 87040; 93005; 96374; 99285; 99291; A9585; J1171

== ENCOUNTER → 2024-10-09 12:37 | Outpatient (BNV) | payer OTHER, SELFPAY | PROVIDERS: Emergency Provider Emergency Medicine; Visit Provider Radiology Diagnostic Radiology | DX: M86.9 Osteomyelitis, unspecified (principal); R41.82 Altered mental status, unspecified | CPT/HCPCS: 71045; 72158 ==

== ENCOUNTER → 2024-11-20 23:59 | Outpatient (BNV) | payer OTHER, SELFPAY | DX: E11.69 Type 2 diabetes mellitus with other specified complication (principal); M46.26 Osteomyelitis of vertebra, lumbar region; I89.0 Lymphedema, not elsewhere classified | CPT/HCPCS: G0180 ==

== ENCOUNTER 2024-11-28 11:18 | Outpatient (AMB) | payer OTHER, SELFPAY ==
--- NOTE | 2024-11-28 11:24 | A.OFFPC_ITS ---
Vital Signs 3 11/28/24 11:25 11/28/24 12:55 Weight 277 lb 12.519 oz BP 148/62 H 128/82 Blood Pressure Location Lt brachial Rt brachial Position Sitting Sitting Pulse 89 Pulse Source Pulse Oximeter Pulse Oximetry (%) 98 Oxygen Delivery Method Room Air Intake Visit Reasons: f/u DM and spinal abscess [employer] Center Technician Required: No Accompanied by: Son Allergies No Known Allergies Allergy (Verified 11/28/24 11:47) Medication List - Last Reconciled 11/28/24 by Sammie Estrella PA-C aspirin 81 mg PO DAILY carvedilol 3.125 mg PO BID cefazolin 1 g IVPUSH Q8H cholecalciferol (vitamin D3) 25 mcg PO DAILY cyclobenzaprine 10 mg PO Q8H PRN furosemide (Lasix) 20 mg PO DAILY [grab bars As directed] [Hospital Bed Mattress As directed] lidocaine 4% (Lidocaine Pain Relief) 1 patch See Protocol transdermal DAILY lidocaine 5% 1 patch topical DAILY metformin 500 mg PO BID potassium chloride ER (Klor-Con M) 40 mEq PO BEDTIME Tobacco use date assessed: 11/28/24 Dental Screening Dental Screen Date: 11/28/24 Did you have a dental visit in the last 12 months?: Yes Did you have a dental problem in the last 6 months where you did not have access to dental care?: No Was dental information given to patient?: Patient has dentist HPI f/u DM and spinal abscess 2 HPI0 Details 58-year-old male with past medical histo ry of spinal abscess, non- Hodgkin lymphoma, diabetes mellitus, thrombocytopenia, hypercholesterolemia, cirrhosis, peripheral neuropathy last seen via telehealth 09/26/2024 coming in for follow up. Patient was seen at [facility] 09/06/2024 transferred to [facility] for management of epidural abscess or PICC line was placed receiving antibiotic treatment. He returned to [facility] 10/09/2024 for increased confusion and worsening back pain MRI showing worsening of osteomyelitis of L4- L5 discussed with Dr. Charles at [facility] and was transferred for neurosurgical evaluation. Presenting with the management of multiple health conditions, including sepsis, spinal abscess, osteomyelitis, and diabetes mellitus. The patient experienced sepsis, which led to memory loss for about two months, likely due to the severity of the condition. The patient had abscesses on the spine, which were identified during an emergency room visit. The abscesses required surgical intervention, including the removal of infected tissue and spinal fusion from the lower five vertebrae to the pelvis. The patient was diagnosed with osteomyelitis, which necessitated the surgical removal of infected bone tissue and subsequent spinal fusion. The patient has a history of diabetes mellitus, with inconsistent management of metformin and insulin. The patient's A1c was previously recorded at 7, and recent blood sugar levels have been variable, with some readings below 100 mg/dL. [facility] Medical History Stomach ulcer Stage Lola non-Hodgkin lymphoma Neuropathy Erectile dysfunction Diabetes mellitus Thrombocytopenia Low vitamin D level Hypercholesterolemia Gait instability Cirrhosis Jaundice RIVERA (nonalcoholic steatohepatitis) Surgical History History of hernia repair History of shoulder surgery Social History Household Members: Spouse Household Members Other:: 2 Housing: House Are you a primary acute care registered nurse to a significant other at home: No Do you presently have visiting nurse or other home services: Yes Alcohol intake: never Patient Tobacco Use Status: Never used Tobacco Tobacco use type: Cigarette e-Cigarette/Vaping Use: Never Used Second Hand Smoke Exposure: No Substance Use Type: Marijuana Advance Directives Date on File: 09/04/24 service: No Current occupational status: employed 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 1. Little interest or pleasure in doing things: not at all 2. Feeling down, depressed, or hopeless: not at all 3. Trouble falling or staying asleep, or sleeping too much: not at all 4. Feeling tired or having little energy: not at all 5. Poor appetite or overeating: not at all 6. Feeling bad about yourself - or that you are a failure or have let yourself or your family down: not at all 7. Trouble concentrating on things, such as reading the newspaper or watching television: not at all 8. Moving or speaking so slowly that other people could have noticed. Or the opposite - being so fidgety or restless that you have been moving around a lot more than usual: not at all 9. Thoughts that you would be better off or of hurting yourself in some way: not at all Total score: 0 Depression Screening Interpretation: Negative Depression Screening Done: Yes Source: Developed by Drs. Viral Wynn, Anayeli oGnsalez, Kentrell West and colleagues, with an educational josseline from [employer]. Thrive Questionnaire Date Thrive assessed: 06/08/24 I am a: Patient What is your living situation today?: I have a steady place to live Within the past 12 months, did the food you bought not last and you didn't have the money to get more?: Never true Within the past 12 months, did you worry whether your food would run out before you got money to buy more?: Never true Do you have trouble paying for medicines?: No Do you have trouble getting transportation to medical appointments?: No Do you have trouble paying your heating and electricity bill?: No Do you have trouble taking care of your child, family member or friend?: No Do you have trouble with day-to-day activities such as bathing, preparing meals, shopping, managing finances, etc.?: No Are you currently unemployed and looking for a job?: No Are you interested in more education?: No Please select the resources that you would like help with: None Currently or been in a relationship where the following occur: No concerns reported THRIVE Score: 0 AUDIT C Alcohol Use Questionnaire (AUDIT-C) 1. How often do you have a drink containing alcohol?: Never Total Score: 0 MARRY-7 AMB Questionnaire MARRY-7 Date MARRY - 7 assessed: 06/08/24 Feeling nervous, anxious, or on edge: 0 = Not at all Not being able to stop or control worryin = More than half the days Worrying too much about different things: 2 = More than half the days Trouble relaxin = Not at all Being so restless that it is hard to sit still: 2 = More than half the days Becoming easily annoyed or irritable: 3 = Nearly every day Feeling afraid as if something awful might happen: 0 = Not at all Total MARRY-7 score (0-4 normal; 5-9 mild; 10-14 moderate; 15-21 severe): 9 Source: Developed by Drs. Viral Wynn, Anayeli Gonsalez, Kentrell West and colleagues, with an educational josseline from [employer]. MARRY-7 Assessment Billing MARRY-7 Assessment Tool: MARRY-7 Assessment 65929 Review of Systems Const Denies body aches, Denies fatigue, Denies fever(s), Denies frequent falls, Denies headache(s) and Denies weakness Eyes Reports no additional complaints and Denies change in vision ENT Denies dysphagia, Denies dizziness, Denies facial pain, Denies headache(s), Denies nasal congestion and Denies odynophagia Card Denies chest pain, Denies syncope, Denies irregular heart rhythm, Denies leg edema, Denies lightheadedness and Denies dyspnea Resp Denies cough and Denies dyspnea GI Denies constipation, Denies dysphagia, Denies dyspepsia, Denies diarrhea, Denies nausea, Denies odynophagia and Denies vomiting Denies dysuria, Denies urinary frequency, Denies urinary hesitancy and Denies urinary urgency Musc Denies back pain and Denies myalgias Skin/Breast Reports system reviewed and no additional complaints, except as documented Neuro Denies dizziness, Denies syncope, Denies frequent falls, Denies headache(s) and Denies weakness Psych Reports no additional complaints Endo Denies fatigue Physical exam (Primary Care) Vital Signs: Last Vital Signs Pulse 89 11/28/24 11:25 BP 128/82 11/28/24 12:55 Pulse Ox 98 11/28/24 11:25 Oxygen Delivery Method Room Air 11/28/24 11:25 Tobacco/Smoking Status: Tobacco use Status Tobacco use date assessed 11/28/24 11/28/24 11:40 Patient Tobacco Use Status Never used Tobacco 11/28/24 11:40 Tobacco use type Cigarette 11/28/24 11:40 e-Cigarette/Vaping Use Never Used 11/28/24 11:40 PHQ-9: PHQ-9 Score PHQ-9: Total score 0 11/28/24 13:18 Depression Screening Interpretation: Negative Thrive Assessment: Date of Thrive Assessment Date Thrive assessed 06/08/24 11/28/24 11:40 Currently or been in a relationship where the following occur: No concerns reported Const General: cooperative, healthy appearing, comfortable and no acute distress Orientation/consciousness: patient oriented x3 HENMT Head: Yes normocephalic Ears: hearing grossly normal bilaterally General nose exam: Normal external nose present Eyes General: appearance normal, both eyes and all related structures Conjunctivae: conjunctivae normal Neck Neck: Yes full ROM and Yes no lymphadenopathy Resp Effort & Inspection: normal respiratory effort Auscultation: clear to auscultation bilaterally, no crackles, no rales, no rhonchi and no wheezes Cardio Rate: regular rate Rhythm: regular rhythm Back/Spine/Pelvis Back/spine/pelvis image: 2 1. surgical incision clean dry and intact Skin General skin exam: no rashes or lesions noted Neuro General: patient oriented x3 Gait exam (Neuro): Normal gait present Extrem General: Yes normal to inspection, Yes full ROM and No edema Psych Affect: normal affect Attitude: cooperative Insight: Good insight present (Psych) Judgement: Good judgement present (Psych) Results AMB Hemoglobin A1c 2 AMB Hemoglobin A1c 5.9 % Last Edit by Miranda Kurtz CMA on 11/28/24 12 :20 Results Reviewed Results Reviewed: Laboratory Last Values Hgb A1c (Clinic) 5.9 % (4.0-6.0) 11/28/24 12:19 Coding Level of Care Code Est Pt Level 3 (78708) Diagnoses Hypercholesterolemia E78.00 Diabetes mellitus E11.9 Cirrhosis K74.60 Spinal abscess M46.20 Additional Codes MARRY-7 Assessment Billing - MARRY-7 Assessment Tool: MARRY-7 Assessment 33852 ([id number]) Assessment & Plan Assessment & Plan (1) Hypercholesterolemia: Code(s): E78.00 - Pure hypercholesterolemia, unspecified Category: Medical Plan: Avoid foods that are high in cholesterol such as red meat, fried foods, eggs and baked goods. Triglyceride goal of less than 150 and LDL goal of less than 100. (2) Diabetes mellitus: Comment: Joselyn yearly 2024 Code(s): E11.9 - Type 2 diabetes mellitus without complications Category: Medical Plan: Decrease the amount of carbohydrates such as pasta, bread, rice, and potatoes and limit the amount of sweets. Although fruits are generally healthy they should be eaten in moderation as they are still high in sugar. Hemoglobin A1c goal of less than 7%. (3) Cirrhosis: Code(s): K74.60 - Unspecified cirrhosis of liver Category: Medical Plan: PAtient has visit with GI tomorrow to address new diagnosis of cirrhosis. (4) Spinal abscess: Code(s): M46.20 - Osteomyelitis of vertebra, site unspecified Category: Medical Plan: Currently completing IV abx due to finish on 12/05/2024. He recently had post op last week with surgeon and was given follow up for February. His surgical incision is clean dry and intact without signs of infection. He is doing well postoperatively and pain levels have not exceeded a 5/10. He is currently working on obtaining SSI benefits given his extensive hospitalization resulting in deconditioning. Plan During the visit, we discussed the management of the patient's sepsis, spinal abscess, osteomyelitis, and diabetes mellitus. The patient was advised to continue with metformin for diabetes management and to follow a diabetic diet. We also discussed the importance of follow-up with the neurosurgeon to monitor recovery from spinal surgery. The patient was informed about the potential risks of not adhering to the treatment plan, including the possibility of further complications. This note was constructed using voice recognition software. While every effort has been made to ensure accuracy and telephone operator, still areas may have been included sometimes these areas may affect the content or meeting of the given symptoms. Total time spent caring for the patient today was 30 minutes. This includes time spent before the visit reviewing the chart, time spent during the visit, and time spent after the visit and documentation. Patient was informed and verbally consented to the use of an ambient scribe for clinic note documentation during this visit. Orders: Orders 2 AMB Hemoglobin A1c Today Z13.9 - Encounter for screening, unspecified Medications: Refilled 2 carvedilol must administer with a meal/food 3.125 mg PO BID 60 tabs 0RF cholecalciferol (vitamin D3) 25 mcg PO DAILY 90 caps 3RF metformin 500 mg PO BID 180 tabs 0RF E11.9 - Type 2 diabetes mellitus without complications
[2024-11-28 11:25] VITALS: BP 148/62; PULSE 89; O2SAT 98
--- OUTSIDE RECORDS SUMMARY | 2024-11-28 12:51 | XMS_ITS | Encounter Summary ---
Author Organization [facility] Address [address] [place] [address] Phone Care Team Providers Care Nurse Chemical Dependency Name Role Phone Unavailable Primary Care Provider Unavailabl e Encounter Details Date Type Department Care Team (Late st Contact Info) Description 11/21/2024 Results Follow-Up [facility] [address] [place] [address] Yolanda Doll MD [address] [place] [address] Lab Scan Social History Tobacco Use Types Packs/Day Years Used Date Smoking Tobacco: Never Assessed Sex and Gender Information Value Date Recorded Sex Assigned at Not on file Legal Sex Male 4:15 PM EDT Gender Identity Not on file Sexual Orientation Not on file documented as of this encounter Miscellaneous Notes * Result Encounter Note - Wen Mohr RN - 11/22/2024 12:47 PM EDT [facility] [place] [facility] * Result Encounter Note - Yolanda Doll MD - 11/21/2024 3:48 PM EDT Pls try to have sed rate added to pts weekly labs. He will be following with us, per call from pt 11/21 documented in this encounter Plan of Treatment Upcoming Encounters Date Type Department Care Team (Late st Contact Info) Description 2024 6:00 PM EDT Follow Up [facility] [address] [place], [place] [id number] Yolanda Doll MD [address] [place] [id number] documented as of this encounter Visit Diagnoses Not on filedocumented in this encounter
--- OUTSIDE RECORDS SUMMARY | 2024-11-28 12:51 | XMS_ITS | Encounter Summary ---
Author Organization [facility] Address [address] [place] [address] Phone Care Team Providers Care Enameler Name Role Phone Unavailable Primary Care Provider Unavailabl e Encounter Details Date Type Department Care Team (Late st Contact Info) Description 11/21/2024 Scanned Document [facility] [address] [place], [place] [address] Yolanda Doll MD [address] [place] [address] Social History Tobacco Use Types Packs/Day Years Used Date Smoking Tobacco: Never Assessed Sex and Gender Information Value Date Recorded Sex Assigned at Not on file Legal Sex Male 4:15 PM EDT Gender Identity Not on file Sexual Orientation Not on file documented as of this encounter Plan of Treatment Upcoming Encounters Date Type Department Care Team (Late st Contact Info) Description 2024 6:00 PM EDT Follow Up [facility] [address] [place] [address] Yolanda Doll MD [address] [place] [address] documented as of this encounter Procedures Procedure Name Priority Date/Time Associated Diagnosis Comments LAB SCAN Routine 11/20/2024 1:21 PM EDT documented in this encounter Results * Lab Scan (11/20/2024 1:21 PM EDT) us Yolanda Doll MD LAB BLOOD ORDERABLES Liliam l Result documented in this encounter Visit Diagnoses Not on filedocumented in this encounter
--- OUTSIDE RECORDS SUMMARY | 2024-11-28 12:51 | XMS_ITS | Encounter Summary ---
Author Organization [facility] [place] [address] Care Team Providers Care Estate Planning Paralegal Name Role Phone Gerardo Nice MD Primary Care Provider [phone] Encounter Details Date Type Department Care Team (Late st Contact Info) Description 08/03/2024 Lab Requisition [facility] - Main Lab [address] [facility] [place] [address] Gerardo Nice MD [address] [facility] [address] [place], [address] Unspecified infectious disease Social History Tobacco Use Types Packs/Day Years [...] as of this encounter Plan of Treatment Not on file documented as of this encounter Procedures Procedure Name Priority Date/Time Associated Diagnosis Comments BASIC METABOLIC PANEL Routine 08/03/2024 5:08 AM EDT Unspecified infectious disease documented in this encounter Results * (ABNORMAL) Basic metabolic panel (08/03/2024 5:08 AM EDT) Sodium 129(L) 133 - 145 mmol/L LAB CHEMISTRY METHOD 08/03/2024 10:[address] [facility] Potassium 4.8 3.5 - 5.5 mmol/L LAB CHEMISTRY METHOD 08/03/2024 10:[address] [facility] Comment:Hemolysis present Chloride 94(L) 96 - 110 mmol/L LAB CHEMISTRY METHOD 08/03/2024 10:[address] [facility] CO2 27 21 - 32 mmol/L LAB CHEMISTRY METHOD 08/03/2024 10:[address] [facility] Anion Gap 8 3 - 11 LAB CHEMISTRY METHOD 08/03/2024 10:[address] [facility] Glucose 163(H) 70 - 100 mg/dL LAB CHEMISTRY METHOD 08/03/2024 10:[address] [facility] BUN 14 5 - 25 mg/dL LAB CHEMISTRY METHOD 08/03/2024 10:[address] [facility] Creatinine 0.68(L) 0.70 - 1.30 mg/dL LAB CHEMISTRY METHOD 08/03/2024 10:[address] [facility] eGFR 106 >=60 mL/min/1. 73m2 LAB CHEMISTRY METHOD 08/03/2024 10:[address] [facility] Comment:Calculation based on the Chronic Kidney Disease Epidemiology Collaboration (CKD-EPI) equation refit without adjustment for race. BUN/Creatinine Ratio 20.6 LAB CHEMISTRY METHOD 08/03/2024 10:[address] [facility] Calcium 8.1(L) 8.5 - 10.5 mg/dL LAB CHEMISTRY METHOD 08/03/2024 10:45 AM EDT [facility] Blood Venous blood specimen / Unknown Venipuncture / Unknown 08/03/2024 5:08 AM EDT 08/03/2024 9:30 AM EDT us Gerardo Nice MD LAB BLOOD ORDERABLES Final Resul t [facility] [address] [place] [address], documented in this encounter Visit Diagnoses Diagnosis Unspecified infectious disease documented in this encounter Care Teams Estate Planning Paralegal Relationship Specialty Start Date End Date Gerardo Nice MD [address] [place] [address], [phone] PCP - General Family Medicine 07/29/24 documented as of this encounter
--- OUTSIDE RECORDS SUMMARY | 2024-11-28 12:51 | XMS_ITS | Clinical Summary ---
Author Organization [facility] Address [address] [place] [address] Care Team Providers Care Engineering Patternmaker Name Role Phone Melanie Cummins Primary Care Provider [phone] Allergies No known active allergies Medications Medication [...] age to complete this topic Care Teams Engineering Patternmaker Relationship Specialty Start Date End Date Melanie Cummins PA PCP - General Physician Water Project Manager 12/09/21
--- OUTSIDE RECORDS SUMMARY | 2024-11-28 12:51 | XMS_ITS | Encounter Summary ---
Author Organization [facility] [place] [address] Care Team Providers Care Pathology Laboratory Aide Name Role Phone Gerardo Nice MD Primary Care Provider [phone] Encounter Details Date Type Department Care Team (Late st Contact Info) Description 08/10/2024 Lab Requisition [facility] - Main Lab [address] [facility] [place] [address] Gerardo Nice MD 38 [facility] [address] [place], [address] Diarrhea, unspecified Social History Tobacco Use Types Packs/Day Years [...] Procedure Name Priority Date/Time Associated Diagnosis Comments CLOSTRIDIUM DIFFICILE TOXIN Routine 08/09/2024 8:00 PM EDT Diarrhea, unspecified documented in this encounter Results * Clostridium difficile toxin (08/09/2024 8:00 PM EDT) Clostridium difficile GDH Antigen Negative Negative 08/10/2024 11:44 AM EDT [facility] C difficile Toxins A+B, EIA Negative Negative 08/10/2024 11:44 AM EDT [facility] Comment:NEGATIVE FOR TOXIN P RODUCING CLOSTRIDIOIDES DIFFICILE, NO ADDITIONAL TESTING IS NECESSARY. Stool Rectum structure / Unknown 08/09/2024 8:00 PM EDT 08/10/2024 9:32 AM EDT us Gerardo Nice MD LAB MICROBIOLOGY - GENERAL ORDER GINA Final Result [facility] [address] [place] [address], [place] [phone] documented in this encounter Visit Diagnoses Diagnosis Diarrhea, unspecified documented in this encounter Care Teams Pathology Laboratory Aide Relationship Specialty Start Date End Date Gerardo Nice MD [address] [place] [address] [address] [place], [phone] PCP - General Family Medicine 07/29/24 documented as of this encounter
--- OUTSIDE RECORDS SUMMARY | 2024-11-28 12:51 | XMS_ITS | Encounter Summary ---
Author Organization [facility] [place] [address] Care Team Providers Care Snow Ranger Name Role Phone Gerardo Nice MD Primary Care Provider [phone] Encounter Details Date Type Department Care Team (Late st Contact Info) Description 08/10/2024 Lab Requisition [facility] - Main Lab [address] [place] [address] Gerardo Nice MD 38 [facility] [address] [place], [address] Other specified sepsis (CMS/HCC V24, CMS/HCC V28); Type 2 diabetes mellitus without complications (CMS/HCC V24, CMS/HCC V28) Social History Tobacco [...] Associated Diagnosis Comments COMPLETE BLOOD COUNT Routine 08/10/2024 5:21 AM EDT Other specified sepsis ([facility] V24, [facility] V28) Type 2 diabetes mellitus without complications ([facility] V24, [facility] V28) BASIC METABOLIC PANEL Routine 08/10/2024 5:21 AM EDT Other specified sepsis ([facility] V24, [facility] V28) Type 2 diabetes mellitus without complications ([facility] V24, [facility] V28) documented in this encounter Results * (ABNORMAL) Basic metabolic panel (08/10/2024 5:21 AM EDT) Sodium 135 133 - 145 mmol/L LAB CHEMISTRY METHOD 08/10/2024 10:[address] [facility] Potassium 4.2 3.5 - 5.5 mmol/L LAB CHEMISTRY METHOD 08/10/2024 10:[address] [facility] Chloride 99 96 - 110 mmol/L LAB CHEMISTRY METHOD 08/10/2024 10:[address] [facility] CO2 28 21 - 32 mmol/L LAB CHEMISTRY METHOD 08/10/2024 10:[address] [facility] Anion Gap 8 3 - 11 LAB CHEMISTRY METHOD 08/10/2024 10:[address] [facility] Glucose 175(H) 70 - 100 mg/dL LAB CHEMISTRY METHOD 08/10/2024 10:[address] [facility] BUN 9 5 - 25 mg/dL LAB CHEMISTRY METHOD 08/10/2024 10:[address] [facility] Creatinine 0.48(L) 0.70 - 1.30 mg/dL LAB CHEMISTRY METHOD 08/10/2024 10:40 AM EDT [facility] eGFR 118 >=60 mL/min/1. 73m2 LAB CHEMISTRY METHOD 08/10/2024 10:40 AM EDT [facility] Comment:Calculation based on the Chronic Kidney Disease Epidemiology Collaboration (CKD-EPI) equation refit without adjustment for race. BUN/Creatinine Ratio 18.8 LAB CHEMISTRY METHOD 08/10/2024 10:40 AM EDT [facility] Calcium 8.3(L) 8.5 - 10.5 mg/dL LAB CHEMISTRY METHOD 08/10/2024 10:40 AM EDT [facility] Blood Venous blood specimen / Unknown Venipuncture / Unknown 08/10/2024 5:21 AM EDT 08/10/2024 9:44 AM EDT us Gerardo Nice MD LAB BLOOD ORDERABLES Final Resul t [facility] [address] [place] [address], [place] [phone] * (ABNORMAL) Complete blood count (08/10/2024 5:21 AM EDT) WBC 6.0 4.8 - 10.8 K/mcL LAB HEMETOLOGY METHOD 08/10/2024 10:25 AM EDT [facility] RBC 2.90(L) 4.50 - 5.50 M/mcL LAB HEMETOLOGY METHOD 08/10/2024 10:25 AM EDT [facility] Hemoglobin 9.1(L) 13.5 - 17.5 g/dL LAB HEMETOLOGY METHOD 08/10/2024 10:25 AM EDT [facility] Hematocrit 28.5(L) 42.0 - 54.0 % LAB HEMETOLOGY METHOD 08/10/2024 10:25 AM EDT [facility] MCV 96.9 79.0 - 98.0 FL LAB HEMETOLOGY METHOD 08/10/2024 10:25 AM EDT [facility] MCH 31.0 27.0 - 32.0 pcg LAB HEMETOLOGY METHOD 08/10/2024 10:25 AM EDT [facility] MCHC 31.9(L) 32.0 - 37.0 g/dL LAB HEMETOLOGY METHOD 08/10/2024 10:25 AM EDT [facility] RDW 14.9 11.0 - 15.0 % LAB HEMETOLOGY METHOD 08/10/2024 10:25 AM EDT [facility] Platelets 185 130 - 400 K/mcL LAB HEMETOLOGY METHOD 08/10/2024 10:25 AM EDT [facility] MPV 10.6 7.0 - 11.0 FL LAB HEMETOLOGY METHOD 08/10/2024 10:25 AM EDT [facility] NRBC 0.0 <1.0 % LAB HEMETOLOGY METHOD 08/10/2024 10:25 AM EDT [facility] NRBC Absolute 0.00 <0.10 K/mcL LAB HEMETOLOGY METHOD 08/10/2024 10:25 AM EDT [facility] Blood Venous blood specimen / Unknown Venipuncture / Unknown 08/10/2024 5:21 AM EDT 08/10/2024 9:44 AM EDT us Geradro Nice MD LAB BLOOD ORDERABLES Final Resul t [facility] [address] [place] [address], documented in this encounter Visit Diagnoses Diagnosis Other specified sepsis (CMS/HCC V24, CMS/HCC V28) Type 2 diabetes mellitus without complications (CMS/HCC V24, CMS/HCC V28) documented in this encounter Care Teams Snow Ranger Relationship Specialty Start Date End Date Gerardo Nice MD 38 [facility] [address] [place], [phone] PCP - General Family Medicine 07/29/24 documented as of this encounter
--- OUTSIDE RECORDS SUMMARY | 2024-11-28 12:51 | XMS_ITS | Encounter Summary ---
Author Organization [facility] [place] [address] Care Team Providers Care Manager Of Drilling Name Role Phone Gerardo Nice MD Primary Care Provider [phone] Encounter Details Date Type Department Care Team (Late st Contact Info) Description 08/25/2024 Lab Requisition [facility] - Main Lab [address] [facility] [place] [address] Gerardo Nice MD 38 [facility] [address] [place], [phone] Other specified sepsis (CMS/HCC V24, CMS/HCC V28) Social History Tobacco [...] on file documented as of this encounter Visit Diagnoses Diagnosis Other specified sepsis (CMS/HCC V24, CMS/HCC V28) documented in this encounter Care Teams Manager Of Drilling Relationship Specialty Start Date End Date Gerardo Nice MD [address] [place] [address] [address] [place], [phone] PCP - General Family Medicine 07/29/24 documented as of this encounter
--- OUTSIDE RECORDS SUMMARY | 2024-11-28 12:51 | XMS_ITS | Encounter Summary ---
Author Organization [facility] Address [address] [place] [address] Phone Care Team Providers Care Baggagemaster Name Role Phone Unavailable Primary Care Provider Unavailabl e Encounter Details Date Type Department Care Team (Late st Contact Info) Description 10/03/2024 Scanned Document [facility] [address] [place], [place] [address] Yolanda Doll MD [address] [place] [address] Social History Tobacco Use Types [...] PM EDT Follow Up [facility] [address] [place], [place] [address] Yolanda Doll MD [address] [place] [address] documented as of this encounter Procedures Procedure Name Priority Date/Time Associated Diagnosis Comments LAB SCAN Routine 10/02/2024 10:53 AM EDT documented in this encounter Results * Lab Scan (10/02/2024 10:53 AM EDT) Yolanda Doll MD LAB BLOOD ORDERABLES Liliam l Result documented in this encounter Visit Diagnoses Not on filedocumented in this encounter
--- OUTSIDE RECORDS SUMMARY | 2024-11-28 12:51 | XMS_ITS | Encounter Summary ---
Author Organization [facility] Address [address] [place] [address] Phone Care Team Providers Care Fuel Dock Attendant Name Role Phone Unavailable Primary Care Provider Unavailabl e Encounter Details Date Type Department Care Team (Late st Contact Info) Description 10/11/2024 Scanned Document [facility] [address] [place], [place] [address] Yolanda Doll MD [address] [place] [address] Social History Tobacco Use Types [...] PM EDT Follow Up [facility] [address] [place], [place] [address] Yolanda Doll MD [address] [place] [address] documented as of this encounter Visit Diagnoses Not on filedocumented in this encounter
--- OUTSIDE RECORDS SUMMARY | 2024-11-28 12:51 | XMS_ITS | Encounter Summary ---
Author Organization [facility] [place] [address] Care Team Providers Care Transition Program Manager Name Role Phone Gerardo Nice MD Primary Care Provider [phone] Encounter Details Date Type Department Care Team (Late st Contact Info) Description 07/29/[address] [facility] - Main Lab [address] [facility] [place] [address] Gerardo Nice MD 38 [facility] [address] [place], [address] Sepsis, unspecified organism (CMS/HCC V24, CMS/HCC [...] 07/29/2024 6:10 AM EDT Sepsis, unspecified organism ([facility] V24, [facility] V28) COMPREHENSIVE METABOLIC PANEL Routine 07/29/2024 6:10 AM EDT Sepsis, unspecified organism ([facility] V24, [facility] V28) documented in this encounter Results * (ABNORMAL) Comprehensive metabolic panel (07/29/2024 6:10 AM EDT) Sodium 131(L) 133 - 145 mmol/L LAB CHEMISTRY METHOD 07/29/2024 12:11 PM [facility] Potassium 4.2 3.5 - 5.5 mmol/L LAB CHEMISTRY METHOD 07/29/2024 12:11 PM [facility] Chloride 94(L) 96 - 110 mmol/L LAB CHEMISTRY METHOD 07/29/2024 12:11 PM [facility] CO2 28 21 - 32 mmol/L LAB CHEMISTRY METHOD 07/29/2024 12:11 PM [facility] Anion Gap 9 3 - 11 LAB CHEMISTRY METHOD 07/29/2024 12:11 PM [facility] Glucose 232(H) 70 - 100 mg/dL LAB CHEMISTRY METHOD 07/29/2024 12:11 PM [facility] BUN 17 5 - 25 mg/dL LAB CHEMISTRY METHOD 07/29/2024 12:11 PM [facility] Creatinine 0.64(L) 0.70 - 1.30 mg/dL LAB CHEMISTRY METHOD 07/29/2024 12:11 PM [facility] eGFR 108 >=60 mL/min/1. 73m2 LAB CHEMISTRY METHOD 07/29/2024 12:11 PM [facility] Comment:Calculation based on the Chronic Kidney Disease Epidemiology Collaboration (CKD-EPI) equation refit without adjustment for race. BUN/Creatinine Ratio 26.6 LAB CHEMISTRY METHOD 07/29/2024 12:11 PM EDT [facility] Calcium 7.7(L) 8.5 - 10.5 mg/dL LAB CHEMISTRY METHOD 07/29/2024 12:11 PM [facility] AST (SGOT) 47(H) 10 - 42 unit/L LAB CHEMISTRY METHOD 07/29/2024 12:11 PM [facility] ALT (SGPT) 26 10 - 60 unit/L LAB CHEMISTRY METHOD 07/29/2024 12:11 PM [facility] Alkaline Phosphatase 89 42 - 121 unit/L LAB CHEMISTRY METHOD 07/29/2024 12:11 PM [facility] Total Protein 5.6(L) 6.0 - 8.0 g/dL LAB CHEMISTRY METHOD 07/29/2024 12:11 PM [facility] Albumin 1.6(L) 3.2 - 5.0 g/dL LAB CHEMISTRY METHOD 07/29/2024 12:11 PM [facility] Total Bilirubin 5.3(H) 0.0 - 1.4 mg/dL LAB CHEMISTRY METHOD 07/29/2024 12:11 PM [facility] Blood Venous blood specimen / Unknown Venipuncture / Unknown 07/29/2024 6:10 AM EDT 07/29/2024 10:55 AM EDT us Gerardo Nice MD LAB BLOOD ORDERABLES Final Resul t [facility] [address] [place] [address], [place] [phone] * (ABNORMAL) Complete blood count (07/29/2024 6:10 AM EDT) WBC 11.8(H) 4.8 - 10.8 K/mcL LAB HEMETOLOGY METHOD 07/29/2024 11:47 AM [facility] RBC 3.10(L) 4.50 - 5.50 M/mcL LAB HEMETOLOGY METHOD 07/29/2024 11:47 AM [facility] Hemoglobin 9.4(L) 13.5 - 17.5 g/dL LAB HEMETOLOGY METHOD 07/29/2024 11:47 AM [facility] Hematocrit 29.2(L) 42.0 - 54.0 % LAB HEMETOLOGY METHOD 07/29/2024 11:47 AM [facility] MCV 93.9 79.0 - 98.0 FL LAB HEMETOLOGY METHOD 07/29/2024 11:47 AM [facility] MCH 30.2 27.0 - 32.0 pcg LAB HEMETOLOGY METHOD 07/29/2024 11:47 AM [facility] MCHC 32.2 32.0 - 37.0 g/dL LAB HEMETOLOGY METHOD 07/29/2024 11:47 AM [facility] RDW 15.8(H) 11.0 - 15.0 % LAB HEMETOLOGY METHOD 07/29/2024 11:47 AM [facility] Platelets 181 130 - 400 K/mcL LAB HEMETOLOGY METHOD 07/29/2024 11:47 AM [facility] MPV 11.1(H) 7.0 - 11.0 FL LAB HEMETOLOGY METHOD 07/29/2024 11:47 AM [facility] NRBC 0.0 <1.0 % LAB HEMETOLOGY METHOD 07/29/2024 11:47 AM [facility] NRBC Absolute 0.00 <0.10 K/mcL LAB HEMETOLOGY METHOD 07/29/2024 11:47 AM EDT [facility] Blood Venous blood specimen / Unknown Venipuncture / Unknown 07/29/2024 6:10 AM EDT 07/29/2024 10:55 AM EDT us Gerardo Nice MD LAB BLOOD ORDERABLES Final Resul t [facility] [address] [place] [address], documented in this encounter Visit Diagnoses Diagnosis Sepsis, unspecified organism (CMS/HCC V24, CMS/HCC V28) documented in this encounter Care Teams Transition Program Manager Relationship Specialty Start Date End Date Gerardo Nice MD [address] [place] [address], [phone] PCP - General Family Medicine 07/29/24 documented as of this encounter
--- OUTSIDE RECORDS SUMMARY | 2024-11-28 12:51 | XMS_ITS | Clinical Summary ---
Author Organization [facility] [address] Address [address] [place] [address] Care Team Providers Care Centrifugal Chiller Technician Name Role Phone Unavailable Primary Care Provider Unavailabl e Encounters Date Type Department Care Team Description 11/21/2024 Results Follow-Up [facility] [address] [place] [address] Yolanda Doll MD Lab Scan 11/21/2024 Telephone [facility] [address] [place] [address] Wen Mohr, TIMOTHY Other 11/21/2024 Scanned Document [facility] [address] [place] [address] Yolanda Doll MD 11/15/2024 Results Follow-Up [facility] [address] [place] [address] Yolanda Doll MD Lab Scan 11/15/2024 Scanned Document [facility] [address] [place] [address] Yolanda Doll MD 10/19/2024 Scanned Document [facility] [address] [place] [address] Yolanda Doll MD 10/18/2024 Scanned Document [facility] [address] [place] [address] Yolanda Doll MD 10/11/2024 Scanned Document [facility] [address] [place] [address] Yolanda Doll MD 10/03/2024 Scanned Document [facility] [address] [place] [address] Yolanda Doll MD 09/07/2024 Scanned Document [facility] [address] [place] [address] Yolnada Doll MD from Last 3 Months Social History Tobacco Use Types Packs/Day Years Used Date Smoking Tobacco: Never Assessed Sex and Gender Information Value Date Recorded Sex Assigned at Not on file Legal Sex Male 4:15 PM EDT Gender Identity Not on file Sexual Orientation Not on file Plan of Treatment Upcoming Encounters Date Type Department Care Team (Late st Contact Info) Description 2024 6:00 PM EDT Follow Up [facility] [address] [place] [address] Yolanda Doll MD [address] [place] [phone] Health Maintenance Due Date Last Done Comments HIV screening 12/03/1976 Hepatitis C screening 12/03/1981 Tetanus adult (Td q 10,TDAP once) 1983 Lipid disorder screening 2003 Colon cancer screening, Colonoscopy 12/03/2008 Diabetes screening 12/03/2008 Pneumococcal Vaccine (50+ years) (1 of 1 - PCV) 12/03/2013 Shingles vaccine (Shingrix) (1 of 2 - Shingrix (RZV) 2 Dose Standard Series) 12/03/2013 Covid-19 vaccine series ( season) 2024 01/28/2021, 06/05/2020, 05/15/2020 Influenza vaccine 11/27/2024 RSV Immunization (1 - 1-dose 75+ series) 12/03/2038 Meningococcal B Vaccine Aged Out No l onger eligible based on patient's age to complete this topic Meningococcal Vaccine Aged Out No pauline dana eligible based on patient's age to complete this topic Procedures Procedure Name Priority Date/Time Associated Diagnosis Comments LAB SCAN Routine 11/20/2024 1:21 PM EDT LAB SCAN Routine 11/15/2024 9:19 AM EDT LAB SCAN Routine 10/02/2024 10:53 AM EDT from Last 3 Months Results * Lab Scan (11/20/2024 1:21 PM EDT) Only the most recent of3 resultswithin the time period is included. Yolanda Doll MD LAB BLOOD ORDERABLES Liliam l Result from Last 3 Months Insurance [facility]
--- OUTSIDE RECORDS SUMMARY | 2024-11-28 12:51 | XMS_ITS | Encounter Summary ---
Author Organization [facility] [place] [address] Care Team Providers Care Broach Operator Name Role Phone Gerardo Nice MD Primary Care Provider [phone] Encounter Details Date Type Department Care Team (Late st Contact Info) Description 08/21/2024 Lab Requisition [facility] - Main Lab [address] [facility] [place] [address] Gerardo Nice MD 38 [facility] [address] [place], [address] Other specified sepsis (CMS/HCC V24, CMS/HCC [...] Procedure Name Priority Date/Time Associated Diagnosis Comments CBC WITH AUTO DIFFERENTIAL Routine 08/22/2024 6:17 AM EDT Other specified sepsis ([facility] V24, [facility] V28) CBC AND DIFFERENTIAL Routine 08/22/2024 6:17 AM EDT Other specified sepsis ([facility] V24, [facility] V28) COMPREHENSIVE METABOLIC PANEL Routine 08/22/2024 6:17 AM EDT Other specified sepsis ([facility] V24, [facility] V28) documented in this encounter Results * (ABNORMAL) CBC auto differential (08/22/2024 6:17 AM EDT) WBC 5.9 4.8 - 10.8 K/mcL LAB HEMETOLOGY METHOD 08/22/2024 11:12 AM [facility] RBC 3.10(L) 4.50 - 5.50 M/mcL LAB HEMETOLOGY METHOD 08/22/2024 11:12 AM [facility] Hemoglobin 9.8(L) 13.5 - 17.5 g/dL LAB HEMETOLOGY METHOD 08/22/2024 11:12 AM [facility] Hematocrit 30.1(L) 42.0 - 54.0 % LAB HEMETOLOGY METHOD 08/22/2024 11:12 AM [facility] MCV 96.2 79.0 - 98.0 FL LAB HEMETOLOGY METHOD 08/22/2024 11:12 AM [facility] MCH 31.3 27.0 - 32.0 pcg LAB HEMETOLOGY METHOD 08/22/2024 11:12 AM [facility] MCHC 32.6 32.0 - 37.0 g/dL LAB HEMETOLOGY METHOD 08/22/2024 11:12 AM [facility] RDW 14.2 11.0 - 15.0 % LAB HEMETOLOGY METHOD 08/22/2024 11:12 AM [facility] Platelets 213 130 - 400 K/mcL LAB HEMETOLOGY METHOD 08/22/2024 11:12 AM [facility] MPV 10.6 7.0 - 11.0 FL LAB HEMETOLOGY METHOD 08/22/2024 11:12 AM [facility] NRBC 0.0 <1.0 % LAB HEMETOLOGY METHOD 08/22/2024 11:12 AM [facility] NRBC Absolute 0.00 <0.10 K/mcL LAB HEMETOLOGY METHOD 08/22/2024 11:12 AM [facility] Neutrophils Relative 64.0 % LAB HEMETOLOGY METHOD 08/22/2024 11:12 AM [facility] Lymphocytes Relative 21.1 % LAB HEMETOLOGY METHOD 08/22/2024 11:12 AM [facility] Monocytes Relative 11.7 % LAB HEMETOLOGY METHOD 08/22/2024 11:12 AM [facility] Eosinophils Relative 2.2 % LAB HEMETOLOGY METHOD 08/22/2024 11:12 AM [facility] Basophils Relative 0.7 % LAB HEMETOLOGY METHOD 08/22/2024 11:12 AM [facility] Immature Granulocytes Relative 0.3 % LAB HEMETOLOGY METHOD 08/22/2024 11:12 AM [facility] Neutrophils Absolute 3.79 1.50 - 7.00 K/mcL LAB HEMETOLOGY METHOD 08/22/2024 11:12 AM [facility] Lymphocytes Absolute 1.25 1.00 - 5.00 K/mcL LAB HEMETOLOGY METHOD 08/22/2024 11:12 AM EDT [facility] Monocytes Absolute 0.69 0.20 - 1.00 K/mcL LAB HEMETOLOGY METHOD 08/22/2024 11:12 AM EDT [facility] Eosinophils Absolute 0.13 0.00 - 0.50 K/mcL LAB HEMETOLOGY METHOD 08/22/2024 11:12 AM EDT [facility] Basophils Absolute 0.04 0.00 - 0.20 K/[facility] LAB HEMETOLOGY METHOD 08/22/2024 11:12 AM EDT [facility] Immature Granulocytes Absolute 0.02 0.00 - 0.03 K/mcL LAB HEMETOLOGY METHOD 08/22/2024 11:12 AM T [facility] Blood Venous blood specimen / Unknown Venipuncture / Unknown 08/22/2024 6:17 AM EDT 08/22/2024 10:16 AM EDT us Gerardo Nice MD LAB BLOOD ORDERABLES Final Resul t [facility] [address] [place] [address], * (ABNORMAL) Comprehensive metabolic panel (08/22/2024 6:17 AM EDT) Sodium 133 133 - 145 mmol/L LAB CHEMISTRY METHOD 08/22/2024 12:11 PM T [facility] Potassium 3.6 3.5 - 5.5 mmol/L LAB CHEMISTRY METHOD 08/22/2024 12:11 PM [facility] Chloride 93(L) 96 - 110 mmol/L LAB CHEMISTRY METHOD 08/22/2024 12:11 PM [facility] CO2 30 21 - 32 mmol/L LAB CHEMISTRY METHOD 08/22/2024 12:11 PM [facility] Anion Gap 10 3 - 11 LAB CHEMISTRY METHOD 08/22/2024 12:11 PM [facility] Glucose 222(H) 70 - 100 mg/dL LAB CHEMISTRY METHOD 08/22/2024 12:11 PM [facility] BUN 11 5 - 25 mg/dL LAB CHEMISTRY METHOD 08/22/2024 12:11 PM [facility] Creatinine 0.65(L) 0.70 - 1.30 mg/dL LAB CHEMISTRY METHOD 08/22/2024 12:11 PM [facility] eGFR 108 >=60 mL/min/1. 73m2 LAB CHEMISTRY METHOD 08/22/2024 12:11 PM [facility] Comment:Calculation based on the Chronic Kidney Disease Epidemiology Collaboration (CKD-EPI) equation refit without adjustment for race. BUN/Creatinine Ratio 16.9 LAB CHEMISTRY METHOD 08/22/2024 12:11 PM [facility] Calcium 8.3(L) 8.5 - 10.5 mg/dL LAB CHEMISTRY METHOD 08/22/2024 12:11 PM [facility] AST (SGOT) 32 10 - 42 unit/L LAB CHEMISTRY METHOD 08/22/2024 12:11 PM [facility] ALT (SGPT) 17 10 - 60 unit/L LAB CHEMISTRY METHOD 08/22/2024 12:11 PM [facility] Alkaline Phosphatase 88 42 - 121 unit/L LAB CHEMISTRY METHOD 08/22/2024 12:11 PM [facility] Total Protein 6.6 6.0 - 8.0 g/dL LAB CHEMISTRY METHOD 08/22/2024 12:11 PM [facility] Albumin 1.8(L) 3.2 - 5.0 g/dL LAB CHEMISTRY METHOD 08/22/2024 12:11 PM [facility] Total Bilirubin 1.7(H) 0.0 - 1.4 mg/dL LAB CHEMISTRY METHOD 08/22/2024 12:11 PM EDT [facility] Blood Venous blood specimen / Unknown Venipuncture / Unknown 08/22/2024 6:17 AM EDT 08/22/2024 10:16 AM EDT us Gerardo Nice MD LAB BLOOD ORDERABLES Final Resul t [facility] [address] [place] [address], documented in this encounter Visit Diagnoses Diagnosis Other specified sepsis (CMS/HCC V24, CMS/HCC V28) documented in this encounter Care Teams Broach Operator Relationship Specialty Start Date End Date Gerardo Nice MD [address] [place] [address], [phone] PCP - General Family Medicine 07/29/24 documented as of this encounter
--- OUTSIDE RECORDS SUMMARY | 2024-11-28 12:51 | XMS_ITS | Clinical Summary ---
Author Organization [facility] Address [address] [place] [address] Phone Care Team Providers Care Service Promoter Salesperson Name Role Phone Gerardo Nice MD Primary Care Provider [phone] Allergies No known active allergies Medications cyclobenzaprine (FLEXERIL) 10 mg tablet Take 1 tablet (10 mg total) by mouth 3 (three) times a day if needed for muscle spasms. 5 Active Vitamin D3 25 mcg (1,000 unit) capsule Take 1 capsule (1,000 Units total) by mouth 1 (one) time each day. 5 Active lidocaine (LIDODERM) 5 % patch Apply 1 patch topically 1 (one) time each day. 5 Active metFORMIN (GLUCOPHAGE) 500 mg tablet Take 1 tablet (500 mg total) by mouth 2 (two) times a day. 5 Active sildenafiL (VIAGRA) 50 mg tablet Take 1 tablet (50 mg total) by mouth if needed for erectile dysfunction. 5 Active spironolactone (ALDACTONE) 50 mg tablet Take 1 tablet (50 mg total) by mouth 1 (one) time each day. 30 each 11 5 07/30/19 26 Active bumetanide (BUMEX) 1 mg tablet Take 1 tablet (1 mg total) by mouth 1 (one) time each day. 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 10/2008 Morbid obesity (CMS/HCC V24, [facility] V28) 2008 Elevated blood pressure read ing without diagnosis of hypertension 08/24/2008 Surgical History Surgery Date Site/Laterality Comments ROTATOR CUFF REPAIR PROCEDURE: HISTORICAL ROTATOR CUFF REPAIR; COMMENT: bilateral COLONOSCOPY 09/2009 PROCEDURE: VT COLONOSCOPY FLX DX W/COLLJ SPEC WHEN PFRMD; COMMENT: Up to cecum, good preparation, 2 small polyps removed:tubular adenoma/hyperplastic, diverticulosis Medical History Medical History Date Comments Morbid obesity (CMS/HCC V24, [facility]/HCC V28) 08/24/2008 DX:Morbid obesity (HCC) 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 V24, CMS/HCC V28) DX: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 (HCC) Family History Relation Name Status Comments Father Alive low blood press ure, hyperlipidemia, [place] at age 65, hemochromatosis Mother Alive obesity, [...] Orientation Straight 07/20/2024 11 :44 AM EDT Obstetrics History Last Filed Vital Signs Vital Sign Reading Time Taken Comments Blood Pressure 134/74 07/28/2024 3:27 PM EDT Pulse 95 07/28/2024 3:27 PM EDT Temperature 36.9 C (98.5 F) 07/28/2024 3:27 PM EDT Respiratory Rate 15 07/28/2024 3:27 PM EDT Oxygen Saturation 97% 07/28/2024 3:27 PM EDT Inhaled Oxygen Concentration - - Weight 168 kg (370 lb) 07/25/2024 4:30 AM EDT Height 180.3 cm (5' 10.98 ) 07/21/2024 11:37 AM EDT Body Mass Index 51.63 07/21/2024 11:37 AM EDT Plan of Treatment Health Maintenance Due Date Last Done Comments Diabetes: Annual Foot Exam 12/03/1973 Diabetes: Annual Retina Eye Exam 12/03/1973 Pneumococcal Vaccine: 50+ Years (1 of 2 - PCV) 12/03/1982 Zoster Vaccines (1 of 2) 12/03/1982 Cholesterol Screening (Lipid Panel) 03/07/2022 Colorectal Cancer Screening: Colonoscopy 03/07/2022 HIV Screening 03/07/2022 Social Influencers of Health Screening 03/07/2022 COVID-19 Vaccine ( season) 2023 12/11/2021, 01/28/2021, 06/05/2020, Additional history exists Hepatitis B Vaccines (1 of 3 - Risk 3-dose series) 2023 RSV Immunization Adult Patients (1 - Risk 60-74 years 1-dose series) 2023 Depression Screening 03/29/2024 Diabetes: Annual Urine Albumin-Creatinine Ratio (uACR) 08/01/2024 Influenza Vaccine (#1) 2024 12/11/2021, 2020 Diabetes: Blood Sugar Control Test (HGBA1C) 05/01/2025 10/29/2024, 07/20/2024 Diabetes: Annual GFR (Glomerular Filtration Rate) 11/06/2025 11/06/2024, 11/05/2024, 11/05/2024, Additional history exists Hypertension/CHF/CAD Annual BMP Blood Test 11/06/2025 11/06/2024, 11/05/2024, 11/05/2024, Additional history exists DTaP,Tdap,and Td Vaccines (3 - Td or Tdap) 08/13/2033 08/14/2023, 01/29/2021 Hepatitis A Vaccines Completed 09/17/2009, 01/05/20 09 Hepatitis C Screening Completed 07/23/2024, 025 HIB Vaccines Aged Out No longer eligi [...] age to complete this topic Meningococcal B Vaccine Aged Out No l onger eligible based on patient's age to complete this topic RSV Immunization Patients Under 20 months Aged Out No longer eligible based on patient's age to complete this topic Varicella Vaccines Aged Out No longer eligible based on patient's age to complete this topic Procedures Procedure Name Priority Date/Time Associated Diagnosis Comments COMPREHENSIVE METABOLIC PANEL Routine 08/22/2024 6:17 AM EDT Other specified sepsis (CMS/HCC V24, CMS/HCC V28) HEPATITIS PANEL, ACUTE WITH REFLEX TO CONFIRMATION Add-On 07/23/2024 6:55 AM EDT HEMOGLOBIN A1C Add-On 07/20/2024 10:19 AM EDT from Last 3 Months or Most Recently Relevant to Health Maintenance Results * Hepatitis panel, acute with reflex to confirmation (07/23/2024 6:55 AM EDT) [facility] Hepatitis B Surface Ag Negative Negative LAB CHEMISTRY METHOD 07/24/2024 11:14 PM EDT [facility] Hepatitis A Antibody IgM Negative Negative LAB CHEMISTRY METHOD 07/24/2024 11:14 PM EDT [facility] Hep B Core IgM Negative Negative LAB CHEMISTRY METHOD 07/24/2024 11:14 PM EDT [facility] Hepatitis C Antibody Negative Negative LAB CHEMISTRY METHOD 07/24/2024 11:14 PM EDT [facility] Blood Venous blood specimen / Unknown Venipuncture / Unknown 07/23/2024 6:55 AM EDT 07/23/2024 7:02 AM EDT Ivan Lewis MD LAB BLOOD ORDERABLE S Final Result [facility] [address] [place] [address], [place] [phone] * (ABNORMAL) Hemoglobin A1c (07/20/2024 10:19 AM EDT) [facility] Hemoglobin A1C 8.9(H) <6.5 % LAB CHEMISTRY METHOD 07/21/2024 10:49 AM EDT [facility] Mean Bld Glu Estim. 209 mg/dL LAB CHEMISTRY METHOD 07/21/2024 10:49 AM EDT [facility] Blood Venous blood specimen / Unknown Venipuncture / Unknown 07/20/2024 10:19 AM EDT 07/20/2024 10:44 AM EDT Cisco Mcneil MD LAB BLOOD ORDERABLES Final Result Performing Organization Address City/[facility]/ZIP Co de Phone Number [facility] [address] [place] [address], [place] [phone] from Last 3 Months or Most Recently Relevant to Health Maintenance Insurance [facility] Advance Directives Documents on File Type Date Recorded Patient Cq Developer Expl anation Advance Directives and Living Will 07/24/2024 11:51 AM Emily Alves-Anna Alves Health Care Proxy * Full Code - Default (Latest Code Status on File) Date Activated Date Inactivated Comments 07/20/2024 8:08 PM 07/28/2024 7:38 PM This is order is used when code status has not been discussed with the patient, or code status is otherwise unknown/unconfirmed To update the patient's code status, place a code status order. Do not modify or discontinue any currently active code status orders. Healthcare Agents on File Name Relationship Healthcare Agent Relationship Communication Emily Alves-Becky Spouse Health Care Agent [phone] (Mobile ) Gustavo Alves Brother First Alternate Health Care Agent Care Teams Service Promoter Salesperson Relationship Specialty Start Date End Date Gerardo Nice MD [address], [address] PCP - General Family Medicine 07/29/24
--- OUTSIDE RECORDS SUMMARY | 2024-11-28 12:51 | XMS_ITS | Encounter Summary ---
Author Organization [facility] Address [address] [place] [address] Phone Care Team Providers Care Mill Helper Name Role Phone Unavailable Primary Care Provider Unavailabl e Encounter Details Date Type Department Care Team (Late st Contact Info) Description 11/15/2024 Scanned Document [facility] [address] [place], [place] [id number] Yolanda Doll MD [address] [place] [address] Social History Tobacco Use Types [...] PM EDT Follow Up [facility] [address] [place] [address] Yolanda Doll MD [address] [place] [address] documented as of this encounter Procedures Procedure Name Priority Date/Time Associated Diagnosis Comments LAB SCAN Routine 11/15/2024 9:19 AM EDT documented in this encounter Results * Lab Scan (11/15/2024 9:19 AM EDT) us Yolanda Doll MD LAB BLOOD ORDERABLES Liliam l Result documented in this encounter Visit Diagnoses Not on filedocumented in this encounter
--- OUTSIDE RECORDS SUMMARY | 2024-11-28 12:51 | XMS_ITS | Encounter Summary ---
Author Organization [facility] Address [address] [place] [address] Phone Care Team Providers Care Office Nurse Practitioner Name Role Phone Unavailable Primary Care Provider Unavailabl e Encounter Details Date Type Department Care Team (Late st Contact Info) Description 10/18/2024 Scanned Document [facility] [address] [place], [place] [id number] Yolanda Doll MD [address] [place] [address] Social History Tobacco Use Types [...] PM EDT Follow Up [facility] [address] [place], [place] [address] Yolanda Doll MD [address] [place] [address] documented as of this encounter Visit Diagnoses Not on filedocumented in this encounter
--- OUTSIDE RECORDS SUMMARY | 2024-11-28 12:51 | XMS_ITS | Encounter Summary ---
Author Organization [facility] Address [address] [place] [address] Phone Care Team Providers Care Overhauler Bus Truck Name Role Phone Unavailable Primary Care Provider Unavailabl e Encounter Details Date Type Department Care Team (Late st Contact Info) Description 10/19/2024 Scanned Document [facility] [address] [place], [place] [address] Yolanda Doll MD [address] [place] [address] Social History Tobacco Use Types [...] PM EDT Follow Up [facility] [address] [place], [place] [id number] Yolanda Doll MD [address] [place] [address] documented as of this encounter Visit Diagnoses Not on filedocumented in this encounter
--- OUTSIDE RECORDS SUMMARY | 2024-11-28 12:51 | XMS_ITS | Encounter Summary ---
Author Organization [facility] [place] [address] Care Team Providers Care Master Control Technician Name Role Phone Gerardo Nice MD Primary Care Provider [phone] Encounter Details Date Type Department Care Team (Late st Contact Info) Description 07/31/2024 Lab Requisition [facility] - Main Lab [address] [place] [address] Gerardo Nice MD 38 [facility] [address] [place], [address] Other specified sepsis (CMS/HCC V24, CMS/HCC [...] Diagnosis Comments CBC WITH AUTO DIFFERENTIAL Routine 07/31/2024 6:08 AM EDT Other specified sepsis ([facility] V24, [facility] V28) CBC AND DIFFERENTIAL Routine 07/31/2024 6:08 AM EDT Other specified sepsis ([facility] V24, [facility] V28) COMPREHENSIVE METABOLIC PANEL Routine 07/31/2024 6:08 AM EDT Other specified sepsis ([facility] V24, [facility] V28) documented in this encounter Results * (ABNORMAL) CBC auto differential (07/31/2024 6:08 AM EDT) WBC 9.4 4.8 - 10.8 K/mcL LAB HEMETOLOGY METHOD 07/31/2024 8:37 AM [facility] RBC 3.20(L) 4.50 - 5.50 M/mcL LAB HEMETOLOGY METHOD 07/31/2024 8:37 AM [facility] Hemoglobin 9.7(L) 13.5 - 17.5 g/dL LAB HEMETOLOGY METHOD 07/31/2024 8:37 AM [facility] Hematocrit 30.1(L) 42.0 - 54.0 % LAB HEMETOLOGY METHOD 07/31/2024 8:37 AM [facility] MCV 94.7 79.0 - 98.0 FL LAB HEMETOLOGY METHOD 07/31/2024 8:37 AM [facility] MCH 30.5 27.0 - 32.0 pcg LAB HEMETOLOGY METHOD 07/31/2024 8:37 AM [facility] MCHC 32.2 32.0 - 37.0 g/dL LAB HEMETOLOGY METHOD 07/31/2024 8:37 AM [facility] RDW 15.6(H) 11.0 - 15.0 % LAB HEMETOLOGY METHOD 07/31/2024 8:37 AM [facility] Platelets 214 130 - 400 K/mcL LAB HEMETOLOGY METHOD 07/31/2024 8:37 AM [facility] MPV 10.9 7.0 - 11.0 FL LAB HEMETOLOGY METHOD 07/31/2024 8:37 AM [facility] NRBC 0.0 <1.0 % LAB HEMETOLOGY METHOD 07/31/2024 8:37 AM [facility] NRBC Absolute 0.00 <0.10 K/mcL LAB HEMETOLOGY METHOD 07/31/2024 8:37 AM [facility] Neutrophils Relative 73.2 % LAB HEMETOLOGY METHOD 07/31/2024 8:37 AM [facility] Lymphocytes Relative 15.2 % LAB HEMETOLOGY METHOD 07/31/2024 8:37 AM [facility] Monocytes Relative 9.8 % LAB HEMETOLOGY METHOD 07/31/2024 8:37 AM [facility] Eosinophils Relative 0.8 % LAB HEMETOLOGY METHOD 07/31/2024 8:37 AM [facility] Basophils Relative 0.6 % LAB HEMETOLOGY METHOD 07/31/2024 8:37 AM [facility] Immature Granulocytes Relative 0.4 % LAB HEMETOLOGY METHOD 07/31/2024 8:37 AM [facility] Neutrophils Absolute 6.90 1.50 - 7.00 K/mcL LAB HEMETOLOGY METHOD 07/31/2024 8:37 AM [facility] Lymphocytes Absolute 1.43 1.00 - 5.00 K/mcL LAB HEMETOLOGY METHOD 07/31/2024 8:37 AM EDT [facility] Monocytes Absolute 0.92 0.20 - 1.00 K/[facility] LAB HEMETOLOGY METHOD 07/31/2024 8:37 AM EDT [facility] Eosinophils Absolute 0.08 0.00 - 0.50 K/[facility] LAB HEMETOLOGY METHOD 07/31/2024 8:37 AM EDT [facility] Basophils Absolute 0.06 0.00 - 0.20 K/[facility] LAB HEMETOLOGY METHOD 07/31/2024 8:37 AM EDT [facility] Immature Granulocytes Absolute 0.04(H) 0.00 - 0.03 K/[facility] LAB HEMETOLOGY METHOD 07/31/2024 8:37 AM EDT [facility] Blood Venous blood specimen / Unknown Venipuncture / Unknown 07/31/2024 6:08 AM EDT 07/31/2024 8:14 AM EDT us Gerardo Nice MD LAB BLOOD ORDERABLES Final Resul t [facility] [address] [place] [address], * (ABNORMAL) Comprehensive metabolic panel (07/31/2024 6:08 AM EDT) Sodium 132(L) 133 - 145 mmol/L LAB CHEMISTRY METHOD 07/31/2024 9:15 AM EDT [facility] Potassium 4.3 3.5 - 5.5 mmol/L LAB CHEMISTRY METHOD 07/31/2024 9:15 AM EDT [facility] Chloride 95(L) 96 - 110 mmol/L LAB CHEMISTRY METHOD 07/31/2024 9:15 AM EDT [facility] CO2 29 21 - 32 mmol/L LAB CHEMISTRY METHOD 07/31/2024 9:15 AM EDT [facility] Anion Gap 8 3 - 11 LAB CHEMISTRY METHOD 07/31/2024 9:15 AM [facility] Glucose 221(H) 70 - 100 mg/dL LAB CHEMISTRY METHOD 07/31/2024 9:15 AM [facility] BUN 13 5 - 25 mg/dL LAB CHEMISTRY METHOD 07/31/2024 9:15 AM [facility] Creatinine 0.54(L) 0.70 - 1.30 mg/dL LAB CHEMISTRY METHOD 07/31/2024 9:15 AM [facility] eGFR 114 >=60 mL/min/1. 73m2 LAB CHEMISTRY METHOD 07/31/2024 9:15 AM [facility] Comment:Calculation based on the Chronic Kidney Disease Epidemiology Collaboration (CKD-EPI) equation refit without adjustment for race. BUN/Creatinine Ratio 24.1 LAB CHEMISTRY METHOD 07/31/2024 9:15 AM [facility] Calcium 7.7(L) 8.5 - 10.5 mg/dL LAB CHEMISTRY METHOD 07/31/2024 9:15 AM [facility] AST (SGOT) 46(H) 10 - 42 unit/L LAB CHEMISTRY METHOD 07/31/2024 9:15 AM [facility] ALT (SGPT) 27 10 - 60 unit/L LAB CHEMISTRY METHOD 07/31/2024 9:15 AM [facility] Alkaline Phosphatase 91 42 - 121 unit/L LAB CHEMISTRY METHOD 07/31/2024 9:15 AM [facility] Total Protein 5.7(L) 6.0 - 8.0 g/dL LAB CHEMISTRY METHOD 07/31/2024 9:15 AM [facility] Albumin 1.5(L) 3.2 - 5.0 g/dL LAB CHEMISTRY METHOD 07/31/2024 9:15 AM [facility] Total Bilirubin 4.7(H) 0.0 - 1.4 mg/dL LAB CHEMISTRY METHOD 07/31/2024 9:15 AM EDT [facility] Blood Venous blood specimen / Unknown Venipuncture / Unknown 07/31/2024 6:08 AM EDT 07/31/2024 8:14 AM EDT us Gerardo Nice MD LAB BLOOD ORDERABLES Final Resul t [facility] [address] [place] [address], documented in this encounter Visit Diagnoses Diagnosis Other specified sepsis (CMS/HCC V24, CMS/HCC V28) documented in this encounter Care Teams Master Control Technician Relationship Specialty Start Date End Date Gerardo Nice MD [address] [place] [address], [phone] PCP - General Family Medicine 07/29/24 documented as of this encounter
--- OUTSIDE RECORDS SUMMARY | 2024-11-28 12:51 | XMS_ITS | Encounter Summary ---
Author Organization [facility] [place] [address] Care Team Providers Care Collar Closer Lockstitch Name Role Phone Gerardo Nice MD Primary Care Provider [phone] Encounter Details Date Type Department Care Team (Late st Contact Info) Description 08/14/[address] [facility] - Main Lab 299 [facility] [place] [address] Gerardo Nice MD 38 [facility] [address] [place], [address] Other specified sepsis (CMS/HCC V24, CMS/HCC [...] Diagnosis Comments CBC WITH AUTO DIFFERENTIAL Routine 08/14/2024 5:40 AM EDT Other specified sepsis ([facility] V24, [facility] V28) CBC AND DIFFERENTIAL Routine 08/14/2024 5:40 AM EDT Other specified sepsis ([facility] V24, [facility] V28) COMPREHENSIVE METABOLIC PANEL Routine 08/14/2024 5:40 AM EDT Other specified sepsis ([facility] V24, [facility] V28) documented in this encounter Results * (ABNORMAL) CBC auto differential (08/14/2024 5:40 AM EDT) WBC 6.3 4.8 - 10.8 K/mcL LAB HEMETOLOGY METHOD 08/14/2024 12:01 PM [facility] RBC 3.00(L) 4.50 - 5.50 M/mcL LAB HEMETOLOGY METHOD 08/14/2024 12:01 PM [facility] Hemoglobin 9.3(L) 13.5 - 17.5 g/dL LAB HEMETOLOGY METHOD 08/14/2024 12:01 PM [facility] Hematocrit 29.3(L) 42.0 - 54.0 % LAB HEMETOLOGY METHOD 08/14/2024 12:01 PM [facility] MCV 97.0 79.0 - 98.0 FL LAB HEMETOLOGY METHOD 08/14/2024 12:01 PM [facility] MCH 30.8 27.0 - 32.0 pcg LAB HEMETOLOGY METHOD 08/14/2024 12:01 PM [facility] MCHC 31.7(L) 32.0 - 37.0 g/dL LAB HEMETOLOGY METHOD 08/14/2024 12:01 PM [facility] RDW 14.6 11.0 - 15.0 % LAB HEMETOLOGY METHOD 08/14/2024 12:01 PM [facility] Platelets 219 130 - 400 K/mcL LAB HEMETOLOGY METHOD 08/14/2024 12:01 PM [facility] MPV 10.4 7.0 - 11.0 FL LAB HEMETOLOGY METHOD 08/14/2024 12:01 PM [facility] NRBC 0.0 <1.0 % LAB HEMETOLOGY METHOD 08/14/2024 12:01 PM [facility] NRBC Absolute 0.00 <0.10 K/mcL LAB HEMETOLOGY METHOD 08/14/2024 12:01 [facility] Neutrophils Relative 59.3 % LAB HEMETOLOGY METHOD 08/14/2024 12:01 [facility] Lymphocytes Relative 23.8 % LAB HEMETOLOGY METHOD 08/14/2024 12:01 [facility] Monocytes Relative 13.4 % LAB HEMETOLOGY METHOD 08/14/2024 12:01 [facility] Eosinophils Relative 2.7 % LAB HEMETOLOGY METHOD 08/14/2024 12:01 [facility] Basophils Relative 0.5 % LAB HEMETOLOGY METHOD 08/14/2024 12:01 PM [facility] Immature Granulocytes Relative 0.3 % LAB HEMETOLOGY METHOD 08/14/2024 12:01 PM [facility] Neutrophils Absolute 3.70 1.50 - 7.00 K/mcL LAB HEMETOLOGY METHOD 08/14/2024 12:01 PM [facility] Lymphocytes Absolute 1.49 1.00 - 5.00 K/mcL LAB HEMETOLOGY METHOD 08/14/2024 12:01 PM EDT [facility] Monocytes Absolute 0.84 0.20 - 1.00 K/[facility] LAB HEMETOLOGY METHOD 08/14/2024 12:01 PM EDT [facility] Eosinophils Absolute 0.17 0.00 - 0.50 K/[facility] LAB HEMETOLOGY METHOD 08/14/2024 12:01 PM EDT [facility] Basophils Absolute 0.03 0.00 - 0.20 K/[facility] LAB HEMETOLOGY METHOD 08/14/2024 12:01 PM EDT [facility] Immature Granulocytes Absolute 0.02 0.00 - 0.03 K/[facility] LAB HEMETOLOGY METHOD 08/14/2024 12:01 PM [facility] Blood Venous blood specimen / Unknown Venipuncture / Unknown 08/14/2024 5:40 AM EDT 08/14/2024 10:55 AM EDT us Gerardo Nice MD LAB BLOOD ORDERABLES Final Resul t [facility] [address] [place] [address], * (ABNORMAL) Comprehensive metabolic panel (08/14/2024 5:40 AM EDT) Sodium 132(L) 133 - 145 mmol/L LAB CHEMISTRY METHOD 08/14/2024 12:52 PM [facility] Potassium 3.9 3.5 - 5.5 mmol/L LAB CHEMISTRY METHOD 08/14/2024 12:52 PM [facility] Chloride 95(L) 96 - 110 mmol/L LAB CHEMISTRY METHOD 08/14/2024 12:52 PM [facility] CO2 29 21 - 32 mmol/L LAB CHEMISTRY METHOD 08/14/2024 12:52 PM T [facility] Anion Gap 8 3 - 11 LAB CHEMISTRY METHOD 08/14/2024 12:52 PM [facility] Glucose 157(H) 70 - 100 mg/dL LAB CHEMISTRY METHOD 08/14/2024 12:52 PM [facility] BUN 9 5 - 25 mg/dL LAB CHEMISTRY METHOD 08/14/2024 12:52 PM [facility] Creatinine 0.56(L) 0.70 - 1.30 mg/dL LAB CHEMISTRY METHOD 08/14/2024 12:52 PM [facility] eGFR 113 >=60 mL/min/1. 73m2 LAB CHEMISTRY METHOD 08/14/2024 12:52 PM [facility] Comment:Calculation based on the Chronic Kidney Disease Epidemiology Collaboration (CKD-EPI) equation refit without adjustment for race. BUN/Creatinine Ratio 16.1 LAB CHEMISTRY METHOD 08/14/2024 12:52 PM [facility] Calcium 8.3(L) 8.5 - 10.5 mg/dL LAB CHEMISTRY METHOD 08/14/2024 12:52 PM [facility] AST (SGOT) 36 10 - 42 unit/L LAB CHEMISTRY METHOD 08/14/2024 12:52 PM [facility] ALT (SGPT) 21 10 - 60 unit/L LAB CHEMISTRY METHOD 08/14/2024 12:52 PM [facility] Alkaline Phosphatase 93 42 - 121 unit/L LAB CHEMISTRY METHOD 08/14/2024 12:52 PM [facility] Total Protein 6.5 6.0 - 8.0 g/dL LAB CHEMISTRY METHOD 08/14/2024 12:52 PM [facility] Albumin 1.7(L) 3.2 - 5.0 g/dL LAB CHEMISTRY METHOD 08/14/2024 12:52 PM [facility] Total Bilirubin 2.0(H) 0.0 - 1.4 mg/dL LAB CHEMISTRY METHOD 08/14/2024 12:52 PM EDT [facility] Blood Venous blood specimen / Unknown Venipuncture / Unknown 08/14/2024 5:40 AM EDT 08/14/2024 10:55 AM EDT us Gerardo Nice MD LAB BLOOD ORDERABLES Final Resul t [facility] [address] [place] [address], documented in this encounter Visit Diagnoses Diagnosis Other specified sepsis (CMS/HCC V24, CMS/HCC V28) documented in this encounter Care Teams Collar Closer Lockstitch Relationship Specialty Start Date End Date Gerardo Nice MD [address] [place] [address], [phone] PCP - General Family Medicine 07/29/24 documented as of this encounter
--- OUTSIDE RECORDS SUMMARY | 2024-11-28 12:51 | XMS_ITS | Encounter Summary ---
Author Organization [facility] Address [address] [place] [address] Care Team Providers Care Clay Worker Name Role Phone System, Provider Not In Primary Care Provider Un available Catherine Gallardo RN Unavailable [phone] Sammie Estrella PA-C Primary Care Provider [phone] Encounter Details Date Type Department Care Team (Late st Contact Info) Description 11/17/2024 Orders Only [facility] [place] [address] [place] [address] Merle Villafana PA [address] [place] [address] S/P lumbar fusion (Primary Dx) Social History Tobacco Use Types Packs/Day Years Used Date Smoking Tobacco: Never Smokeless Tobacco: Never [employer] Utilities Answer Date Recorded In the past 12 months has fos4X, gas, oil, or water [employer] threatened to shut off services in your home? No 10/29/2024 AUDIT-C Answer Date Recorded Q1: How often do you have a drink containing alcohol? Never 10/30/2024 Q2: How many drinks containi ng alcohol do you have on a typical day when you are drinking? Patient does not drink Q3: How often do you have si x or more drinks on one occasion? Never 10/30/2024 Overall Financial Resource Strain (CARDIA) Fay r Date Recorded How hard is it for you to pa y for the very basics like food, housing, medical care, and heating? Not very hard 10/29/2024 PHQ-2 Answer Date Recorded PHQ-2 Total Score 0 10/30/2024 Hunger Vital Sign Answer Date Recorded Within the past 12 months, y ou worried that your food would run out before you got the money to buy more. Never true 10/30/19 25 Within the past 12 months, t he food you bought just didn't last and you didn't have money to get more. Never true 10/29/2024 PRAPARE - Transportation Answer Date Re corded In the past 12 months, has l ack of transportation kept you from medical appointments or from getting medications? No 05/2024 In the past 12 months, has l ack of transportation kept you from meetings, work, or from getting things needed for daily living? No 10/29/2024 Housing Stability Vital Sign Answer Kunal e Recorded In the last 12 months, was t here a time when you were not able to pay the mortgage or rent on time? No 10/29/2024 In the past 12 months, how m any times have you moved where you were living? 1 10/29/2024 At any time in the [facility], were you homeless or living in a intermediate (including now)? No 10/29/2024 Sex and Gender Information Value Date Recorded Sex Assigned at Male 09/06/2024 9:51 PM EDT Legal Sex Male 8:27 PM EDT Gender Identity Male 09/06/2024 9:51 PM EDT Sexual Orientation Heterosexual (straight) 09/06 9:51 PM EDT documented as of this encounter Plan of Treatment Upcoming Encounters Date Type Department Care Team (Late st Contact Info) Description 02/13/2025 2:00 PM EST Clinical Support Food and Nutrition Services [address] [facility] [address] [place] [address] 02/19/2025 2:00 PM EST Office Visit [facility] [place] [address] [place] [address] Andrey Bailon MD [address] [place] [address] documented as of this encounter Results * XR Lumbar spine 2 or 3 views (11/20/2024 1:07 PM EDT) Anatomical Region Laterality Modality L-spine Digital Radiogra phy 11/22/2024 8:26 AM EDT Impressions 11/22/2024 8:29 AM EDT Previously noted surgical drains have been removed since 10/18/2024. Additional exam findings are overall stable since the comparison x-rays. Narrative 11/22/2024 8:29 AM EDT CLINICAL INFORMATION: S/P lumbar fusion. Subsequent evaluation. TECHNIQUE: AP and lateral views of the lumbar spine. COMPARISON: Lumbar spine x-rays 10/18/2024. FINDINGS: Postsurgical Changes: Posterior fusion, L3 through the sacrum, unchanged. Alignment: Levoscoliosis, grossly stable. Bones/Vertebrae: Grossly stable in height. No acute fracture identified. Disc Levels: Multilevel degenerative changes, grossly stable. Soft Tissues: Surgical drains on prior x-rays have been removed. Additional Comments: None. Procedure Note Gerardo Moon MD - 11/22/2024 CLINICAL INFORMATION: S/P lumbar fusion. Subsequent evaluation. TECHNIQUE: AP and lateral views of the lumbar spine. COMPARISON: Lumbar spine x-rays 10/18/2024. FINDINGS: Postsurgical Changes: Posterior fusion, L3 through the sacrum,unchanged. Alignment: Levoscoliosis, grossly stable. Bones/Vertebrae: Grossly stable in height. No acute fracture identified. Disc Levels: Multilevel degenerative changes, grossly stable. Soft Tissues: Surgical drains on prior x-rays have been removed. Additional Comments: None. IMPRESSION: Previously noted surgical drains have been removed since 10/18/2024. Additional exam findings are overall stable since the comparison x-rays. us Merle MAIER IMG DIAGNOSTIC IMAGIN G ORDERABLES Final Result documented in this encounter Visit Diagnoses Diagnosis S/P lumbar fusion- Primary Arthrodesis status S/P lumbar fusion Arthrodesis status documented in this encounter Care Teams Clay Worker Relationship Specialty Start Date End Date System, Provider Not In PCP - General 09/06/24 11/19/24 Sammie Estrella PA-C [address] [place] [address] [place] [address] PCP - General Internal Medicine 11/20/24 Catherine Gallardo, RN [address] [address] Nurse Navigator Surgery, Neurosurgery 10/11/24 5 documented as of this encounter
--- OUTSIDE RECORDS SUMMARY | 2024-11-28 12:51 | XMS_ITS | Encounter Summary ---
Author Organization [facility] [place] [address] Care Team Providers Care Top Knitter Name Role Phone Gerardo Nice MD Primary Care Provider [phone] Encounter Details Date Type Department Care Team (Late st Contact Info) Description 08/03/2024 Lab Requisition [facility] - Main Lab 299 [facility] [place] [address] Gerardo Nice MD 38 [facility] [address] [place], [address] Unspecified infectious disease Social History Tobacco [...] Procedure Name Priority Date/Time Associated Diagnosis Comments URINALYSIS WITH REFLEX MICROSCOPIC AND CULTURE Routine 08/03/2024 3:00 AM EDT Unspecified infectious disease CAREY URINE CULTURE TUBE Routine 08/03/2024 3:00 AM EDT Unspecified infectious disease URINALYSIS WITH REFLEX MICROSCOPIC AND CULTURE Routine 08/03/2024 3:00 AM EDT Unspecified infectious disease documented in this encounter Results * (ABNORMAL) Urinalysis with reflex microscopic and culture (08/03/2024 3:00 AM EDT) Specific Roberts Urine 1.008 1.003 - 1.030 LAB URINALYSIS - AUTOMATED METHOD 08/03/2024 10:10 AM [facility] pH, Urine 6.5 5.0 - 8.0 pH LAB URINALYSIS - AUTOMATED METHOD 08/03/2024 10:10 AM [facility] Leukocytes, Urine Negative Negative LAB URINALYSIS - AUTOMATED METHOD 08/03/2024 10:10 AM [facility] Nitrite, Urine Negative Negative LAB URINALYSIS - AUTOMATED METHOD 08/03/2024 10:10 AM [facility] Protein, Urine Negative <=Trace mg/dL LAB URINALYSIS - AUTOMATED METHOD 08/03/2024 10:10 AM [facility] Glucose, Urine Negative Negative mg/dL LAB URINALYSIS - AUTOMATED METHOD 08/03/2024 10:10 AM [facility] Ketones, Urine Negative Negative mg/dL LAB URINALYSIS - AUTOMATED METHOD 08/03/2024 10:10 AM [facility] Urobilinogen, Urine >=8.0(A) 0.2 - 1.0 mg/dL LAB URINALYSIS - AUTOMATED METHOD 08/03/2024 10:10 AM [facility] Bilirubin, Urine Negative Negative LAB URINALYSIS - AUTOMATED METHOD 08/03/2024 10:10 AM EDT [facility] Blood, Urine Negative Negative LAB URINALYSIS - AUTOMATED METHOD 08/03/2024 10:10 AM EDT [facility] Urine Urine specimen obtained by clean catch procedure / Unknown Non-blood Collection / Unknown 08/03/2024 3:00 AM EDT 08/03/2024 8:26 AM EDT Gerardo Nice MD LAB URINE ORDERABLES Final Resul t Performing Organization Address City/[facility]/ZIP Co de Phone Number [facility] [address] [place] [address], [place] [phone] * Carey urine culture tube (08/03/2024 3:00 AM EDT) Extra Tube Hold for add-ons. 08/03/2024 10:02 AM EDT [facility] Comment:Auto resulted. Urine Urine specimen obtained by clean catch procedure / Unknown Non-blood Collection / Unknown 08/03/2024 3:00 AM EDT 08/03/2024 8:26 AM EDT Gerardo Nice MD LAB URINE ORDERABLES Final Resul t Performing Organization Address City/[facility]/ZIP Co de Phone Number [facility] [address] [place] [address], [place] [phone] documented in this encounter Visit Diagnoses Diagnosis Unspecified infectious disease documented in this encounter Care Teams Top Knitter Relationship Specialty Start Date End Date Gerardo Nice MD [address] [place] [address], [phone] PCP - General Family Medicine 07/29/24 documented as of this encounter
--- OUTSIDE RECORDS SUMMARY | 2024-11-28 12:51 | XMS_ITS | Encounter Summary ---
Author Organization [facility] Address [address] [place] [address] Phone Care Team Providers Care Shipping Manager Name Role Phone Unavailable Primary Care Provider Unavailabl e Encounter Details Date Type Department Care Team (Late st Contact Info) Description 11/15/2024 Results [facility] [address] [place] [address] Yolanda Doll MD [address] [place] [address] Lab Scan Social History Tobacco Use Types Packs/Day Years Used Date Smoking Tobacco: Never Assessed Sex and Gender Information Value Date Recorded Sex Assigned at Not on file Legal Sex Male 4:15 PM EDT Gender Identity Not on file Sexual Orientation Not on file documented as of this encounter Miscellaneous Notes * Result Encounter Note - Wen Mohr RN - 11/16/2024 11:46 AM EDT Spokewith pt and results given they wantt o f/u with ID from [facility] will call if they decide to come back here * Result Encounter Note - Yolanda Doll MD - 11/15/2024 8:17 PM EDT Pls inform pt his anemia is stable and platelets remain low. He is currently on ceftriaxone following visit to . Pls ask if he will be arranging f/u with us. He would need a visit in the next 7-12days. documented in this encounter Plan of Treatment Upcoming Encounters Date Type Department Care Team (Late st Contact Info) Description 2024 6:00 PM EDT Follow Up [facility] [address] [place], [place] [id number] Yolanda Doll MD [address] [place] [address] documented as of this encounter Visit Diagnoses Not on filedocumented in this encounter
--- OUTSIDE RECORDS SUMMARY | 2024-11-28 12:51 | XMS_ITS | Encounter Summary ---
Author Organization [facility] [place] [address] Care Team Providers Care Dictionary Editor Name Role Phone Gerardo Nice MD Primary Care Provider [phone] Encounter Details Date Type Department Care Team (Late st Contact Info) Description 08/05/2024 Lab Requisition [facility] - Main Lab [address] [facility] [place] [address] Gerardo Nice MD [address] [facility] [address] [place], [phone] Other specified sepsis (CMS/HCC V24, CMS/HCC [...] Diagnosis Comments CBC WITH AUTO DIFFERENTIAL Routine 08/07/2024 6:14 AM EDT Other specified sepsis ([facility] V24[facility] V28) CBC AND DIFFERENTIAL Routine 08/07/2024 6:14 AM EDT Other specified sepsis ([facility] V24, [facility] V28) COMPREHENSIVE METABOLIC PANEL Routine 08/07/2024 6:14 AM EDT Other specified sepsis ([facility] V24, [facility] V28) documented in this encounter Results * (ABNORMAL) CBC auto differential (08/07/2024 6:14 AM EDT) WBC 6.6 4.8 - 10.8 K/mcL LAB HEMETOLOGY METHOD 08/07/2024 10:50 AM [facility] RBC 3.40(L) 4.50 - 5.50 M/mcL LAB HEMETOLOGY METHOD 08/07/2024 10:50 AM [facility] Hemoglobin 10.6(L) 13.5 - 17.5 g/dL LAB HEMETOLOGY METHOD 08/07/2024 10:50 AM [facility] Hematocrit 33.1(L) 42.0 - 54.0 % LAB HEMETOLOGY METHOD 08/07/2024 10:50 AM [facility] MCV 96.5 79.0 - 98.0 FL LAB HEMETOLOGY METHOD 08/07/2024 10:50 AM [facility] MCH 30.9 27.0 - 32.0 pcg LAB HEMETOLOGY METHOD 08/07/2024 10:50 AM [facility] MCHC 32.0 32.0 - 37.0 g/dL LAB HEMETOLOGY METHOD 08/07/2024 10:50 AM [facility] RDW 15.4(H) 11.0 - 15.0 % LAB HEMETOLOGY METHOD 08/07/2024 10:50 AM [facility] Platelets 202 130 - 400 K/mcL LAB HEMETOLOGY METHOD 08/07/2024 10:50 AM [facility] MPV 10.6 7.0 - 11.0 FL LAB HEMETOLOGY METHOD 08/07/2024 10:50 AM [facility] NRBC 0.0 <1.0 % LAB HEMETOLOGY METHOD 08/07/2024 10:50 AM [facility] NRBC Absolute 0.00 <0.10 K/mcL LAB HEMETOLOGY METHOD 08/07/2024 10:50 AM [facility] Neutrophils Relative 69.8 % LAB HEMETOLOGY METHOD 08/07/2024 10:50 AM [facility] Lymphocytes Relative 17.1 % LAB HEMETOLOGY METHOD 08/07/2024 10:50 AM [facility] Monocytes Relative 10.2 % LAB HEMETOLOGY METHOD 08/07/2024 10:50 AM [facility] Eosinophils Relative 1.8 % LAB HEMETOLOGY METHOD 08/07/2024 10:50 AM [facility] Basophils Relative 0.5 % LAB HEMETOLOGY METHOD 08/07/2024 10:50 AM [facility] Immature Granulocytes Relative 0.6 % LAB HEMETOLOGY METHOD 08/07/2024 10:50 AM [facility] Neutrophils Absolute 4.57 1.50 - 7.00 K/mcL LAB HEMETOLOGY METHOD 08/07/2024 10:50 AM [facility] Lymphocytes Absolute 1.12 1.00 - 5.00 K/mcL LAB HEMETOLOGY METHOD 08/07/2024 10:50 AM EDT [facility] Monocytes Absolute 0.67 0.20 - 1.00 K/mcL LAB HEMETOLOGY METHOD 08/07/2024 10:50 AM EDT [facility] Eosinophils Absolute 0.12 0.00 - 0.50 K/[facility] LAB HEMETOLOGY METHOD 08/07/2024 10:50 AM EDT [facility] Basophils Absolute 0.03 0.00 - 0.20 K/[facility] LAB HEMETOLOGY METHOD 08/07/2024 10:50 AM EDT [facility] Immature Granulocytes Absolute 0.04(H) 0.00 - 0.03 K/[facility] LAB HEMETOLOGY METHOD 08/07/2024 10:50 AM [facility] Blood Venous blood specimen / Unknown Venipuncture / Unknown 08/07/2024 6:14 AM EDT 08/07/2024 10:19 AM EDT us Gerardo Nice MD LAB BLOOD ORDERABLES Final Resul t [facility] [address] [place] [address], * (ABNORMAL) Comprehensive metabolic panel (08/07/2024 6:14 AM EDT) Sodium 132(L) 133 - 145 mmol/L LAB CHEMISTRY METHOD 08/07/2024 11:02 AM T [facility] Potassium 4.8 3.5 - 5.5 mmol/L LAB CHEMISTRY METHOD 08/07/2024 11:02 AM [facility] Chloride 97 96 - 110 mmol/L LAB CHEMISTRY METHOD 08/07/2024 11:02 AM [facility] CO2 25 21 - 32 mmol/L LAB CHEMISTRY METHOD 08/07/2024 11:02 AM [facility] Anion Gap 10 3 - 11 LAB CHEMISTRY METHOD 08/07/2024 11:02 AM [facility] Glucose 134(H) 70 - 100 mg/dL LAB CHEMISTRY METHOD 08/07/2024 11:02 AM [facility] BUN 12 5 - 25 mg/dL LAB CHEMISTRY METHOD 08/07/2024 11:02 AM [facility] Creatinine 0.60(L) 0.70 - 1.30 mg/dL LAB CHEMISTRY METHOD 08/07/2024 11:02 AM [facility] eGFR 111 >=60 mL/min/1. 73m2 LAB CHEMISTRY METHOD 08/07/2024 11:02 AM [facility] Comment:Calculation based on the Chronic Kidney Disease Epidemiology Collaboration (CKD-EPI) equation refit without adjustment for race. BUN/Creatinine Ratio 20.0 LAB CHEMISTRY METHOD 08/07/2024 11:02 AM [facility] Calcium 8.4(L) 8.5 - 10.5 mg/dL LAB CHEMISTRY METHOD 08/07/2024 11:02 AM [facility] AST (SGOT) 49(H) 10 - 42 unit/L LAB CHEMISTRY METHOD 08/07/2024 11:02 AM [facility] ALT (SGPT) 26 10 - 60 unit/L LAB CHEMISTRY METHOD 08/07/2024 11:02 AM [facility] Alkaline Phosphatase 99 42 - 121 unit/L LAB CHEMISTRY METHOD 08/07/2024 11:02 AM [facility] Total Protein 6.8 6.0 - 8.0 g/dL LAB CHEMISTRY METHOD 08/07/2024 11:02 AM [facility] Albumin 1.8(L) 3.2 - 5.0 g/dL LAB CHEMISTRY METHOD 08/07/2024 11:02 AM [facility] Total Bilirubin 3.1(H) 0.0 - 1.4 mg/dL LAB CHEMISTRY METHOD 08/07/2024 11:02 AM EDT [facility] Blood Venous blood specimen / Unknown Venipuncture / Unknown 08/07/2024 6:14 AM EDT 08/07/2024 10:19 AM EDT us Gerardo Nice MD LAB BLOOD ORDERABLES Final Resul t [facility] [address] [place] [address], documented in this encounter Visit Diagnoses Diagnosis Other specified sepsis (CMS/HCC V24, CMS/HCC V28) documented in this encounter Care Teams Dictionary Editor Relationship Specialty Start Date End Date Gerardo Nice MD [address] [place] [address], [phone] PCP - General Family Medicine 07/29/24 documented as of this encounter
--- OUTSIDE RECORDS SUMMARY | 2024-11-28 12:51 | XMS_ITS | Encounter Summary ---
Author Organization [facility] Address [address] [place] [address] Phone Care Team Providers Care Director Safety Council Name Role Phone Unavailable Primary Care Provider Unavailabl e Encounter Details Date Type Department Care Team (Late st Contact Info) Description 09/07/2024 Scanned Document [facility] [address] [place], [place] [id number] Yolanda Doll MD [address] [place] [address] Social History Tobacco Use Types [...] PM EDT Follow Up [facility] [address] [place], [place] [id number] Yolanda Doll MD [address] [place] [address] documented as of this encounter Visit Diagnoses Not on filedocumented in this encounter
--- OUTSIDE RECORDS SUMMARY | 2024-11-28 12:52 | XMS_ITS | Clinical Summary ---
Author Organization [facility] Address [address] [place] [id number] Care Team Providers Care Veneer Jointer Name Role Phone Catherine Gallardo RN Unavailable [phone] Sammie Estrella PA-C Primary Care Provider [phone] Allergies No known active allergies Medications cyclobenzaprine (FLEXERIL) 10 MG tablet Take 1 tablet (10 mg total) by mouth 3 times daily (every 8 hours) as needed for muscle spasms. Active sildenafil (VIAGRA) 50 MG tablet Take 1 tablet (50 mg total) by mouth daily as needed for erectile dysfunction. Active lidocaine (LIDODERM) 5 % patch APPLY 1 PATCH BY TOPICAL ROUTE ONCE DAILY on back (MAY WEAR UP TO 12 HOURS.) 07/19/19 25 Active metFORMIN (GLUCOPHAGE) 500 MG tablet Take 1 tablet (500 mg total) by mouth 2 (two) times a day with meals. 08/25/19 25 Active insulin lispro (HumaLOG KWIKPEN) 100 UNIT/ML prefilled pen injection Inject 2-10 Units under the skin 3 (three) times a day before meals. Inject as per sliding scale: 200 - 249 = 2 units; 250 - 299 = 4 units; 300 - 349 = 8 units; 350 - 399 = 10 units; > 400 = Notify MD for directions Active bisacodyl (DULCOLAX) 10 MG suppository Insert 1 suppository (10 mg total) into the rectum daily as needed for constipation. Active tuberculin 5 unit/0.1 mL injection Inject 0.1 mL (5 Units total) into the skin once. Active ferrous sulfate 325 (65 FE) MG EC tablet Take 1 tablet (325 mg total) by mouth 2 (two) times a day. Take 2 hours before or 4 hours after acid reducers. Active ascorbic acid (VITAMIN C) 500 MG tablet Take 1 tablet (500 mg total) by mouth daily. Active lactulose (ENULOSE) 10 gm/15 mL solution Take 30 mL (20 g total) by mouth 2 (two) times a day. Active cholecalciferol (CHOLECALCIFERO L) 25 MCG (1000 UT) tablet Take 1 tablet (1,000 Units total) by mouth daily. Active multivitamin with minerals Tab tablet Take 1 tablet by mouth daily. Active senna-docusate (sennosides-doc usate sodium) 8.6-50 MG Take 2 tablets by mouth nightly. Active traZODone (DESYREL) 50 MG tablet Take 0.5 tablets (25 mg total) by mouth once. Active magnesium hydroxide (MILK OF MAGNESIA) 400 mg/5 mL suspension Take 30 mL by mouth daily as needed for constipation. Active acetaminophen (TYLENOL) 325 MG tablet Take 2 tablets (650 mg total) by mouth 4 times daily (every 6 hours) as needed for mild pain or fever. Active glucagon (GLUCAGEN) 1 mg injection Inject 1 mL (1 mg total) into the shoulder, thigh, or buttocks once as needed for low blood sugar. Active oxyCODONE (ROXICODONE) 5 MG immediate release tablet Take 1 tablet (5 mg total) by mouth 4 times daily (every 6 hours) as needed for severe pain. Max Daily Amount: 20 mg 10/28/19 25 Active polyethylene glycol (miraLAx) 17 g packetIndicatio ns:Drug-induced constipation Take 1 packet (17 g total) by mouth daily. 5 packet 11/08/19 25 Active senna-docusate (SENNA-S) 8.6-50 MGIndications:D rug-induced constipation Take 1 tablet by mouth daily. 5 tablet 11/08/19 25 Active Additional Information Patient not taking.Reported on 11/20/2024 spironolactone (ALDACTONE) 50 MG tabletIndicatio ns:Chronic anemia Take 1 tablet (50 mg total) by mouth daily. 30 tablet 11/08/19 25 2024 Active carvedilol (COREG) 3.125 MG tabletIndicatio ns:Chronic anemia Take 1 tablet (3.125 mg total) by mouth 2 (two) times a day with meals. 60 tablet 11/08/19 25 2024 Active furosemide (LASIX) 20 MG tabletIndicatio ns:Chronic anemia Take 1 tablet (20 mg total) by mouth daily. 30 tablet 11/09/19 25 2024 Active rifAXIMin (XIFAXAN) 550 MG tabletIndicatio ns:Chronic anemia Take 1 tablet (550 mg total) by mouth every 12 (twelve) hours around the clock. 60 tablet 11/08/19 25 2024 Active thiamine mononitrate (VITAMIN B-1) 100 MG tabletIndicatio ns:Chronic anemia Take 1 tablet (100 mg total) by mouth daily. 30 tablet 11/09/19 25 2024 Active Additional Information Patient not taking.Reported on 11/20/2024 zinc sulfate (ZINCATE) 220 mg capsuleIndicati ons:Chronic anemia Take 1 capsule (220 mg total) by mouth daily. 9 capsule 11/09/19 Active Additional Information Patient not taking.Reported on 11/20/2024 aspirin 81 MG chewable tabletIndicatio ns:Chronic anemia Chew 1 tablet (81 mg total) daily. 30 tablet 2 11/09/19 25 2024 Active Additional Information Patient not taking.Reported on 11/20/2024 potassium chloride (KLOR-CON M20) 20 MEQ tabletIndicatio ns:Weakness Take 2 tablets (40 mEq total) by mouth nightly. Swallow whole, do not crush. Take with food 60 tablet 11/08/19 25 2024 Active spironolactone (ALDACTONE) 50 MG tablet Take 1 tablet (50 mg total) by mouth daily. 07/30/19 25 2024 Discontinued nafcillin 2 g in sodium chloride-MBP 0.9% 100 mL IVPBIndications :Epidural abscess Infuse 2 g into a venous catheter every 4 (four) hours. 10/21/19 25 2024 Discontinued(S top Taking at Discharge) aspirin enteric coated (ECOTRIN) 325 MG EC tablet Take 1 tablet (325 mg total) by mouth daily. 2024 Discontinued(S top Taking at Discharge) potassium chloride (KLOR-CON M20) 20 MEQ tablet Take 1 tablet (20 mEq total) by mouth nightly. Swallow whole, do not crush. Take with food 10/28/192024 Discontinued cefTRIAXone 2 g in sodium chloride-MBP 0.9% 100 mL IVPBIndications :Osteomyelitis of lumbar spine (HCC) Infuse 2 g into a venous catheter twice daily (every 12 hours). 11/08/192024 Active Problems Problem Noted Date Diagnosed Date Acute metabolic encephalopathy 10/30/2024 Assessment & Plan (11/06/2024 3:38 PM EDT): No evidence of acute stroke CT head and MRI brain are negative for acute stroke Infectious workup is negative also Continue lactulose, rifaximin, Coreg, Aldactone and Lasix Liver duplex showing patent vessels and cirrhotic liver Daily MELD labs Assessment & Plan (11/05/2024 1:58 PM EDT): No evidence of acute stroke; CT head and MRI brain negative for acute intracranial pathology; reviewed scans with neurology also confirmed no stroke Infectious workup is negative so far; UA, chest x-ray and paracentesis Continue lactulose and rifaximin Continue Coreg, Aldactone and p.o. Lasix Monitor electrolytes closely as his potassium drops with Lasix Given albumin 25 g twice daily for 2 days Ultrasound duplex showing patent vessels and cirrhotic liver Dietitian following Daily MELD labs Assessment & Plan (11/04/2024 1:32 PM EDT): GI following No evidence of acute stroke; CT head and MRI brain negative for acute intracranial pathology; reviewed scans with neurology also confirmed no stroke Infectious workup is negative so far; UA, chest x-ray and paracentesis Continue lactulose, rifaximin, Aldactone and Coreg Will resume p.o. Lasix at 20 mg daily given worsening lower extremity edema, likely third spacing. And will watch potassium closely Given albumin 25 g twice daily for 2 days Ultrasound duplex showing patent vessels and cirrhotic liver Dietitian consulted Daily MELD labs Assessment & Plan (11/03/2024 4:34 PM EDT): GI following No evidence of acute stroke; CT head and MRI brain negative for acute intracranial pathology; reviewed scans with neurology also confirmed no stroke Infectious workup is negative so far; UA, chest x-ray and paracentesis Continue lactulose, rifaximin, Aldactone and Coreg Discontinued Lasix given hypokalemia; will discuss again with GI whether it is okay to resume as outpatient or not given his lower extremity edema Given albumin 25 g twice daily for 2 days Ultrasound duplex showing patent vessels and cirrhotic liver Dietitian consulted Daily MELD labs Assessment & Plan (11/02/2024 3:45 PM EDT): GI following No evidence of acute stroke; CT head and MRI brain negative for acute intracranial pathology; reviewed scans with neurology also confirmed no stroke Infectious workup is negative so far; UA, chest x-ray and paracentesis Continue lactulose, rifaximin, Aldactone and Coreg Discontinued Lasix given hypokalemia; plan not to resume on discharge Given albumin 25 g twice daily for 2 days Ultrasound duplex showing patent vessels and cirrhotic liver Dietitian consulted Daily MELD labs Assessment & Plan (11/01/2024 4:35 PM EDT): GI following No evidence of acute stroke; CT head and MRI brain negative for acute intracranial pathology Infectious workup is negative so far; UA, chest x-ray and paracentesis Continue lactulose, rifaximin, Aldactone and Coreg Discontinue Lasix given hypokalemia Given albumin 25 g twice daily for 2 days Ultrasound duplex showing patent vessels and cirrhotic liver Dietitian consulted Daily MELD labs Discussed with neurology today Dr Eugene Rinaldi who reviewed his scans and confirmed absence of stroke. Assessment & Plan (10/31/2024 3:51 PM EDT): Concern for hepatic encephalopathy per GI. Noted to have asterixis on presentation. MRI without evidence of CVA. Infectious workup thus far negative; UA, CXR, paracentesis. - Continue lactulose and rifaximin - Continue Aldactone and Coreg - Hold Lasix with hypokalemia per GI - Continue albumin 25 g twice daily x 2 days - Dietitian consulted - Follow-up ultrasound duplex of the abdomen - GI on board, appreciate recommendations Assessment & Plan (10/30/2024 4:44 PM EDT): Patient with worsening weakness and some confusion. Head CT without any acute intracranial abnormality Infectious workup in process Blood cultures UA negative. Chest x-ray with no pneumonia. Given slurring of his speech over the last 2 weeks as per the patient's , will also obtain MRI of the brain to rule out stroke and may need neurology consult based on findings. Generalized weakness 10/30/2024 Assessment & Plan (10/30/2024 4:44 PM EDT): Patient with worsening weakness and some confusion. Head CT without any acute intracranial abnormality Infectious workup in process Blood cultures UA negative. Chest x-ray with no pneumonia. Given slurring of his speech over the last 2 weeks as per the patient's , will also obtain MRI of the brain to rule out stroke and may need neurology consult based on findings. Osteomyelitis of lumbar spine 10/30/2024 Assessment & Plan (11/06/2024 3:38 PM EDT): Recent L4-L5 osteomyelitis epidural abscess. Previous admission s/p L3 lumbar decompression and fusion 10/12 Continue IV Rocephin until 11/23 per ID recommendations ID following; Obtain q. Wednesday CBC, CMP, ESR, CRP and fax to [phone] Assessment & Plan (11/05/2024 1:58 PM EDT): Recent L4-L5 osteomyelitis epidural abscess. Previous admission s/p L3 lumbar decompression and fusion 10/12 Continue IV Rocephin until 11/23 per ID recommendations ID following; Obtain q. Rickey CBC, CMP, ESR, CRP and fax to [phone] Assessment & Plan (11/04/2024 1:32 PM EDT): Recent L4-L5 osteomyelitis epidural abscess. Previous admission s/p L3 lumbar decompression and fusion 10/12 Continue IV Rocephin until 11/23 ID following; Obtain q. Wednesday CBC, CMP, ESR, CRP and fax to [phone] Assessment & Plan (11/03/2024 4:34 PM EDT): Recent L4-L5 osteomyelitis epidural abscess. Previous admission s/p L3 lumbar decompression and fusion 10/12 Continue IV Rocephin until 11/23 ID following; Obtain q. Wednesday CBC, CMP, ESR, CRP and fax to [phone] Assessment & Plan (11/02/2024 3:45 PM EDT): Recent L4-L5 osteomyelitis epidural abscess. Previous admission s/p L3 lumbar decompression and fusion 10/12 Continue IV Rocephin until 11/23 ID following; Obtain q. Wednesday CBC, CMP, ESR, CRP and fax to [phone] Assessment & Plan (11/01/2024 4:35 PM EDT): Recent L4-L5 osteomyelitis epidural abscess. Previous admission s/p L3 lumbar decompression and fusion 10/12 Continue IV Rocephin until 11/23 ID following; Obtain q. Wednesday CBC, CMP, ESR, CRP and fax to [phone] Assessment & Plan (10/31/2024 3:51 PM EDT): Recent L4-L5 osteomyelitis epidural abscess. Previous admission s/p L3 lumbar decompression and fusion 10/12 - Continue ceftriaxone - ID following for antibiotic management, patient recommendations Assessment & Plan (10/30/2024 4:44 PM EDT): Recent L4-L5 osteomyelitis and epidural abscess on previous admission s/p L3 lumbar decompression and fusion for epidural abscess 10/12/2024. Currently on antibiotic nafcillin. ID consulted. Inputs appreciated. Nafcillin switched to IV ceftriaxone. Acute on chronic anemia 10/30/2024 Assessment & Plan (11/06/2024 3:38 PM EDT): GI following No signs of active bleeding S/p EGD on 11/03 that showed grade 2 esophageal varices with no stigmata of recent bleeding, S/p banding Plan for colonoscopy today Heme-onc consulted; likely is low haptoglobin and elevated bilirubin are in the setting of cirrhosis rather than hemolytic anemia Daily CBC and monitor hemoglobin Assessment & Plan (11/05/2024 1:58 PM EDT): GI following No signs of active bleeding S/p EGD on 11/03 that showed grade 2 esophageal varices with no stigmata of recent bleeding. S/p banding Hemoglobin continues to drop down to 7.0 today; discussed with GI and he will be planned for colonoscopy tomorrow Heme-onc consulted; likely is low haptoglobin and elevated bilirubin are in the setting of cirrhosis rather than hemolytic anemia H&H every 12 hours and transfuse to keep hemoglobin above 7 Assessment & Plan (11/04/2024 1:32 PM EDT): No signs of active bleeding S/p EGD on 11/03 that showed grade 2 esophageal varices with no stigmata of recent bleeding. S/p banding Slight drop in hemoglobin today down to 7.5 from 8.3 yesterday; discussed with GI and they recommended monitoring hemoglobin for another 24 hours to make sure he does not need another transfusion and if he drops again they will prep him for colonoscopy Given positive hemolytic workup; heme-onc consulted H&H every 12 hours Assessment & Plan (11/03/2024 4:34 PM EDT): No signs of active bleeding Hemoglobin dropped to 5.9 today and he received 2 units of packed RBCs Plan for EGD today Hemolytic workup showing elevated LDH and low haptoglobin; heme-onc consulted H&H every 12 hours Assessment & Plan (11/02/2024 3:45 PM EDT): No signs of active bleeding Anemia workup negative for iron deficiency. B12 and folate are normal Discussed with GI and plan for EGD tomorrow to screen for esophageal varices Hemoglobin is currently stable around 7-7.5 H&H every 12 hours Assessment & Plan (11/01/2024 4:35 PM EDT): No signs of active bleeding No evidence of iron deficiency on iron panel. B12 and folate normal. Patient has not been screened for varices before Hemoglobin is slowly dropping down to 7.0 today; repeat this evening and transfuse if hemoglobin is less than 7 Daily CBC Assessment & Plan (10/31/2024 3:51 PM EDT): No evidence of iron deficiency on iron panel. B12 and folate normal. - Continue to trend, transfuse for goal 10/16 > Assessment & Plan (10/30/2024 4:44 PM EDT): Hemoglobin better today 8.4/25.1. Will continue to monitor CBC AMS (altered mental status) 10/29/2024 Hepatic encephalopathy 10/29/2024 Assessment & Plan (11/06/2024 3:38 PM EDT): No evidence of acute stroke CT head and MRI brain are negative for acute stroke Infectious workup is negative also Continue lactulose, rifaximin, Coreg, Aldactone and Lasix Liver duplex showing patent vessels and cirrhotic liver Daily MELD labs Assessment & Plan (11/05/2024 1:58 PM EDT): No evidence of acute stroke; CT head and MRI brain negative for acute intracranial pathology; reviewed scans with neurology also confirmed no stroke Infectious workup is negative so far; UA, chest x-ray and paracentesis Continue lactulose and rifaximin Continue Coreg, Aldactone and p.o. Lasix Monitor electrolytes closely as his potassium drops with Lasix Given albumin 25 g twice daily for 2 days Ultrasound duplex showing patent vessels and cirrhotic liver Dietitian following Daily MELD labs Assessment & Plan (11/04/2024 1:32 PM EDT): GI following No evidence of acute stroke; CT head and MRI brain negative for acute intracranial pathology; reviewed scans with neurology also confirmed no stroke Infectious workup is negative so far; UA, chest x-ray and paracentesis Continue lactulose, rifaximin, Aldactone and Coreg Will resume p.o. Lasix at 20 mg daily given worsening lower extremity edema, likely third spacing. And will watch potassium closely Given albumin 25 g twice daily for 2 days Ultrasound duplex showing patent vessels and cirrhotic liver Dietitian consulted Daily MELD labs Assessment & Plan (11/03/2024 4:34 PM EDT): GI following No evidence of acute stroke; CT head and MRI brain negative for acute intracranial pathology; reviewed scans with neurology also confirmed no stroke Infectious workup is negative so far; UA, chest x-ray and paracentesis Continue lactulose, rifaximin, Aldactone and Coreg Discontinued Lasix given hypokalemia; will discuss again with GI whether it is okay to resume as outpatient or not given his lower extremity edema Given albumin 25 g twice daily for 2 days Ultrasound duplex showing patent vessels and cirrhotic liver Dietitian consulted Daily MELD labs Assessment & Plan (11/02/2024 3:45 PM EDT): GI following No evidence of acute stroke; CT head and MRI brain negative for acute intracranial pathology; reviewed scans with neurology also confirmed no stroke Infectious workup is negative so far; UA, chest x-ray and paracentesis Continue lactulose, rifaximin, Aldactone and Coreg Discontinued Lasix given hypokalemia; plan not to resume on discharge Given albumin 25 g twice daily for 2 days Ultrasound duplex showing patent vessels and cirrhotic liver Dietitian consulted Daily MELD labs Assessment & Plan (11/01/2024 4:35 PM EDT): GI following No evidence of acute stroke; CT head and MRI brain negative for acute intracranial pathology Infectious workup is negative so far; UA, chest x-ray and paracentesis Continue lactulose, rifaximin, Aldactone and Coreg Discontinue Lasix given hypokalemia Given albumin 25 g twice daily for 2 days Ultrasound duplex showing patent vessels and cirrhotic liver Dietitian consulted Daily MELD labs Discussed with neurology today Dr Eugene Rinaldi who reviewed his scans and confirmed absence of stroke. Assessment & Plan (10/31/2024 3:51 PM EDT): Concern for hepatic encephalopathy per GI. Noted to have asterixis on presentation. MRI without evidence of CVA. Infectious workup thus far negative; UA, CXR, paracentesis. - Continue lactulose and rifaximin - Continue Aldactone and Coreg - Hold Lasix with hypokalemia per GI - Continue albumin 25 g twice daily x 2 days - Dietitian consulted - Follow-up ultrasound duplex of the abdomen - GI on board, appreciate recommendations Assessment & Plan (10/30/2024 4:44 PM EDT): Liver cirrhosis, concern for hepatic encephalopathy: Ammonia levels normal. GI inputss appreciated. Will continue lactulose, rifaximin. S/p paracentesis, transudative fluid. To f/u on cytology of ascitic fluid. Will monitor LFTs. Will keep Lasix 20 Mg daily, Aldactone 50 Mg daily. Will add carvedilol 6.25 mg BID for cirrhosis with portal HTN, variceal bleeding prophylaxis and systemic hypertension. GIBRAN (acute kidney injury) 10/14/2024 Assessment & Plan (10/14/2024 4:50 PM EDT): -GIBRAN -Differential diagnosis could be AIN or ATN -Possible due to Nafcillin -Patient not making urine -Bladder scan shows 20 mls of urine -Hold Nafcillin for now -Start renally dosed vancomycin per ID recs -Renal ultrasound today -Continue bladder scan -CBC daily -Urine is very dark -Urinalysis shows dark yellow urine, turbid, glucose 100, ketones trace, blood moderate, leukocyte esterase small, bilirubin small, WBC 122 (high), anaerobic subculture, hyaline cast 10. -Give 250-500mls bolus followed by 100 mL/hr for 24 hours -Repeat BMP tomorrow 10/15 -Check Creatinine Kinase -ID recs-appreciated Orthostatic hypotension 10/14/2024 Assessment & Plan (10/14/2024 12:30 PM EDT): - Blood pressure 120s dropped to 90s - Patient developed dizziness and almost passed when PT tried to make him stand - Out of bed to chair, asymptomatic -s/p 500 cc of normal saline, will observe and check his vitals Epidural abscess 09/06/2024 Assessment & Plan (10/14/2024 12:30 PM EDT): - S/p L3 lumbar decompression and fusion for epidural abscess 10/12/2024. - L4-L5 epidural abscess/discitis/osteomyelitis. - Monitor for skin rash secondary to antibiotics -Aerobic exudate from spinal cord negative after 2 days -No fungi isolated from spinal fluid culture -Tissue pathology pending -Hold Nafcillin for now -creatinine trending upwards. Assessment & Plan (10/11/2024 3:36 PM EDT): L4-L5 discitis osteomyelitis CT lumbar spine done 10/11 shows extensive erosive changes at the L4-L5 endplates, compatible with discitis osteomyelitis, with associated moderate height loss of the vertebral bodies. Vertebral body height loss has progressed since MRI from 09/07/2024. Patient has been evaluated by orthopedic surgery and is planned for surgery on 10/12 ID following, appreciate recommendations. - Oxycodone 10 mg every 4 hours as needed - Antibiotic therapy switched to nafcillin 2 g every 4 hours yesterday - N.p.o. past midnight for surgical decompression and fusion on 10/12 - Resume DVT prophylaxis postprocedure per surgery recs Other cirrhosis of liver 09/06/2024 Assessment & Plan (11/06/2024 3:38 PM EDT): No evidence of acute stroke CT head and MRI brain are negative for acute stroke Infectious workup is negative also Continue lactulose, rifaximin, Coreg, Aldactone and Lasix Liver duplex showing patent vessels and cirrhotic liver Daily MELD labs Assessment & Plan (11/05/2024 1:58 PM EDT): No evidence of acute stroke; CT head and MRI brain negative for acute intracranial pathology; reviewed scans with neurology also confirmed no stroke Infectious workup is negative so far; UA, chest x-ray and paracentesis Continue lactulose and rifaximin Continue Coreg, Aldactone and p.o. Lasix Monitor electrolytes closely as his potassium drops with Lasix Given albumin 25 g twice daily for 2 days Ultrasound duplex showing patent vessels and cirrhotic liver Dietitian following Daily MELD labs Assessment & Plan (11/04/2024 1:32 PM EDT): GI following No evidence of acute stroke; CT head and MRI brain negative for acute intracranial pathology; reviewed scans with neurology also confirmed no stroke Infectious workup is negative so far; UA, chest x-ray and paracentesis Continue lactulose, rifaximin, Aldactone and Coreg Will resume p.o. Lasix at 20 mg daily given worsening lower extremity edema, likely third spacing. And will watch potassium closely Given albumin 25 g twice daily for 2 days Ultrasound duplex showing patent vessels and cirrhotic liver Dietitian consulted Daily MELD labs Assessment & Plan (11/03/2024 4:34 PM EDT): GI following No evidence of acute stroke; CT head and MRI brain negative for acute intracranial pathology; reviewed scans with neurology also confirmed no stroke Infectious workup is negative so far; UA, chest x-ray and paracentesis Continue lactulose, rifaximin, Aldactone and Coreg Discontinued Lasix given hypokalemia; will discuss again with GI whether it is okay to resume as outpatient or not given his lower extremity edema Given albumin 25 g twice daily for 2 days Ultrasound duplex showing patent vessels and cirrhotic liver Dietitian consulted Daily MELD labs Assessment & Plan (11/02/2024 3:45 PM EDT): GI following No evidence of acute stroke; CT head and MRI brain negative for acute intracranial pathology; reviewed scans with neurology also confirmed no stroke Infectious workup is negative so far; UA, chest x-ray and paracentesis Continue lactulose, rifaximin, Aldactone and Coreg Discontinued Lasix given hypokalemia; plan not to resume on discharge Given albumin 25 g twice daily for 2 days Ultrasound duplex showing patent vessels and cirrhotic liver Dietitian consulted Daily MELD labs Assessment & Plan (11/01/2024 4:35 PM EDT): GI following No evidence of acute stroke; CT head and MRI brain negative for acute intracranial pathology Infectious workup is negative so far; UA, chest x-ray and paracentesis Continue lactulose, rifaximin, Aldactone and Coreg Discontinue Lasix given hypokalemia Given albumin 25 g twice daily for 2 days Ultrasound duplex showing patent vessels and cirrhotic liver Dietitian consulted Daily MELD labs Discussed with neurology today Dr Eugene Rinaldi who reviewed his scans and confirmed absence of stroke. Assessment & Plan (10/31/2024 3:51 PM EDT): Concern for hepatic encephalopathy per GI. Noted to have asterixis on presentation. MRI without evidence of CVA. Infectious workup thus far negative; UA, CXR, paracentesis. - Continue lactulose and rifaximin - Continue Aldactone and Coreg - Hold Lasix with hypokalemia per GI - Continue albumin 25 g twice daily x 2 days - Dietitian consulted - Follow-up ultrasound duplex of the abdomen - GI on board, appreciate recommendations Assessment & Plan (10/30/2024 4:44 PM EDT): Liver cirrhosis, concern for hepatic encephalopathy: Ammonia levels normal. GI inputss appreciated. Will continue lactulose, rifaximin. S/p paracentesis, transudative fluid. To f/u on cytology of ascitic fluid. Will monitor LFTs. Will keep Lasix 20 Mg daily, Aldactone 50 Mg daily. Will add carvedilol 6.25 mg BID for cirrhosis with portal HTN, variceal bleeding prophylaxis and systemic hypertension. Controlled type 2 diabetes m maryellen without complication, without long-term current use of insulin 09/06/2024 Assessment & Plan (11/06/2024 3:38 PM EDT): On home metformin Continue insulin sliding scale Hypoglycemia protocol Assessment & Plan (11/05/2024 1:58 PM EDT): On home metformin Continue insulin sliding scale Hypoglycemia protocol Assessment & Plan (11/04/2024 1:32 PM EDT): On home metformin Continue sliding scale Hypoglycemia protocol Assessment & Plan (11/03/2024 4:34 PM EDT): On home metformin Continue sliding scale Hypoglycemia protocol Assessment & Plan (11/02/2024 3:45 PM EDT): On home metformin Continue insulin sliding scale while inpatient Hypoglycemia protocol Assessment & Plan (11/01/2024 4:35 PM EDT): Lant on home metformin Correctional scale intensity increase Hypoglycemia protocol Assessment & Plan (10/31/2024 3:51 PM EDT): - Lantus 5 units ordered this morning x 1 dose - Correctional scale intensity increase - Fingersticks ACHS Assessment & Plan (10/30/2024 4:44 PM EDT): Will keep him on sliding scale insulin, check FS BS every 6 hours. Will hold metformin in the setting of acute illness and mild acidosis. Assessment & Plan (10/14/2024 12:30 PM EDT): -Last A1c 8.9 06/2024 -ISS -Hypoglycemia protocol Assessment & Plan (10/11/2024 3:36 PM EDT): Last A1c from 07/16/2024 was 8.9 - ISS - Hypoglycemia protocol Abscess 09/06/2024 Resolved Problems Problem Noted Date Diagnosed Date Resolved Date Weakness 11/16/2024 11/16/2024 Hypokalemia 10/30/2024 11/06/2024 Assessment & Plan (11/05/2024 1:58 PM EDT): Improved Monitor closely while on p.o. Lasix Continue scheduled potassium Assessment & Plan (11/04/2024 1:32 PM EDT): Continue scheduled potassium 40 daily Daily BMP Assessment & Plan (11/03/2024 4:34 PM EDT): Resolved Continue daily potassium chloride 40 along with Aldactone Assessment & Plan (11/02/2024 3:45 PM EDT): Resolved Continue replacement as needed Assessment & Plan (11/01/2024 4:35 PM EDT): Potassium 3.0 today Replace as needed Daily BMP Assessment & Plan (10/31/2024 3:51 PM EDT): -Repletion ordered - Trend BMP Assessment & Plan (10/30/2024 4:44 PM EDT): Severe hypokalemia, will replete. Encounters Date Type Department Care Team Description 11/20/2024 1:00 PM EDT Office Visit [facility] [place] [address] [facility] [place] [phone] Merle Villafana PA S/P lumbar fusion (Primary Dx) 11/20/2024 8:15 AM EDT Ancillary Procedure [facility] [place] [address] [facility] [place] [phone] Merle Villafana PA S/P lumbar fusion 11/20/2024 Travel 11/17/2024 Orders Only [facility] [place] [address] [facility] [place] [phone] Merle Villafana PA S/P lumbar fusion (Primary Dx) 11/16/2024 2:00 PM EDT Clinical Support [facility] Nutrition Services [address] [facility] [address] [place] [address] Mahesh Interiano MD Petracca, Nicole L, RD Weakness (Primary Dx); Controlled type 2 diabetes mellitus without complication, without long-term current use of insulin ([facility]) 11/14/2024 Telephone [facility] [place] [address] [facility] [place] [phone] Andrey Bailon MD 11/13/2024 Orders Only [facility] [address] [place] [address] Mahesh Interiano MD Acute on chronic anemia 11/06/2024 10:43 AM EDT Anesthesia Event [facility] [address] [place] [phone] Rossy Schwartz MD Edison, Amanda C, PA-C 11/06/2024 9:58 AM EDT - 11/06/2024 10:44 AM EDT Surgery [facility] [address] [place] [phone] Lisa Duarte, COLONOSCOPY 11/03/2024 2:15 PM EDT Anesthesia Event [facility] [address] [place] [phone] Bonifacio Garrido MD Ritchie, Agatha T, PA-C 11/03/2024 1:30 PM EDT - 11/03/2024 2:00 PM EDT Surgery [facility] [address] [place] [phone] Lisa Duarte DO ENDOSCOPY UPPER 10/28/2024 4:43 PM EDT - 11/07/2024 1:04 PM EDT Hospital Encounter [facility] 12 [address] [place] [phone] Ann Marie Bloom MD Thakurathi, Priyesh, MD Pokhrel, Kamal, MD Botzak, MD Jaydon Kirk, Mahesh Gilliam MD Weakness (Primary Dx); Hypokalemia; Confusion; Somnolence; Acute on chronic anemia; Drug-induced constipation; Osteomyelitis of lumbar spine (HCC) Discharge Disposition: Home with Health Care Services 10/28/2024 Travel 10/23/2024 Telephone [facility] [place] [address] [place] [phone] Andrey Bailon MD 10/12/2024 12:30 PM EDT - 10/12/2024 6:16 PM EDT Surgery [facility] [address] [place] [phone] Andrey Bailon MD L3-Pelvis Lumbar Decompression and Fusion for Epidural Abscess 10/12/2024 12:29 PM EDT Anesthesia Event [facility] [address] [place] [phone] Carlos Akhtar MD Cooke, Shea, CRNA 10/10/2024 6:45 PM EDT Ancillary Procedure [facility] [address] [place] [address] Provider, File Room 10/10/2024 6:40 PM EDT Ancillary Procedure [facility] [address] [place] [phone] Provider, File Room 10/10/2024 6:40 PM EDT Ancillary Procedure [facility] [address] [place] [address] Provider, File Room 10/09/2024 9:29 PM EDT - 10/20/2024 1:42 PM EDT Hospital Encounter [facility] [address] [place] [address] Ruben Gómez MD Antwi-Boasiako, Samuel, MD Thomas, Listy A, MD Verma, Abhiroop, MD Abscess (Primary Dx); Epidural abscess; Type 2 diabetes mellitus without complication, unspecified whether terminal superintendent insulin use (HCC) Discharge Disposition: [facility] 10/09/2024 Orders Only [facility] [address] [place] [address] Provider, File Room 10/09/2024 Travel 09/13/2024 7:45 AM EDT - 09/13/2024 8:56 AM EDT Surgery [facility] [address] [place] [address] Yemi Hernandez PA-C IR PICC Placement including Imaging w/o Pump or Port > 5 years 09/11/2024 11:07 AM EDT Anesthesia Event [facility] [place] [facility] - Cardiology [address] [place] [phone] Raj Turner MD Yano, Kyle, MD 09/11/2024 Travel 09/06/2024 8:10 PM EDT - 09/14/2024 12:44 PM EDT Hospital Encounter [facility] [address] [place] [address] Ruben Gómez MD Javed, Zohaib, MD Shrestha, Elina, MD Regelmann, David J, MD Farhan, Mariam, MD Mahali, Rakesh, MD Epidural abscess (Primary Dx); Bacteremia; Abscess; Type 2 diabetes mellitus without complication, without long-term current use of insulin (HCC); Drug-induced constipation Discharge Disposition: Home with Health Care Services 09/06/2024 Orders Only [facility] [address] [place] [address] Provider, File Room 09/06/2024 Travel from Last 3 Months Social History Tobacco Use Types Packs/Day Years Used Date Smoking Tobacco: Never Smokeless Tobacco: Never Tobacco Cessation:Counseling Given: Not Answered Alcohol Use Standard Drinks/Week Comments Never 0 (1 standard drink = 0.6 oz pur e alcohol) [facility] Utilities Answer Date Recorded In the [...] Never 10/30/2024 Overall Financial Resource Strain (CARDIA) Answe r [...] any time in the past 12 m [facility], were you homeless or living in a long term (including now)? No 10/29/2024 Sex and Gender Information Value Date Recorded Sex Assigned at Male 09/06/2024 9:51 PM EDT Legal Sex Male 8:27 PM EDT Gender Identity Male 09/06/2024 9:51 PM EDT Sexual Orientation Heterosexual (straight) 09/06 9:51 PM EDT Last Filed Vital Signs Vital Sign Reading Time Taken Comments Blood Pressure 129/67 11/20/2024 1:15 PM EDT Pulse 86 11/20/2024 1:15 PM EDT Temperature 36.3 C (97.4 F) 11/06/2024 8:31 PM EDT Respiratory Rate 18 11/07/2024 5:20 AM EDT Oxygen Saturation 99% 11/20/2024 1:15 PM EDT Inhaled Oxygen Concentration - - Weight 126 kg (278 lb) 11/20/2024 1:15 PM EDT Height 182.9 cm (6') 11/20/2024 1:15 PM EDT Body Mass Index 37.7 11/20/2024 1:15 PM EDT Plan of Treatment Upcoming Encounters Date Type Department Care Team (Late st Contact Info) Description 02/13/2025 2:00 PM EST Clinical Support Food and Nutrition Services [facility] [address] [place] [phone] 02/19/2025 2:00 PM EST Office Visit [facility] [place] [address] [place] [phone] Andrey Bailon MD [address] [place], [place] [phone] Health Maintenance Due Date Last Done Comments Hepatitis C Virus Screening 1965 Lipid Panel 12/03/1973 Ophthalmology Exam 12/03/1973 HIV Screening 12/03/1976 Microalbumin/Creatinine Ratio Urine 12/03/1981 DTaP/Tdap/Td Vaccines (1 - Tdap) 12/03/1982 Pneumococcal Vaccines 50+ (1 of 2 - PCV) 12/03/1982 Zoster (Shingles) Vaccine (1 of 2) 12/03/2013 RSV Vaccine 60 years and older and Patients (1 - Risk 60-74 years 1-dose series) 2023 Influenza Vaccine 10/27/2024 12/11/2021, 01/29/2021 COVID-19 Vaccine ( season) 2024 12/11/2021, 01/29/2021, 01/28/2021, Additional history exists Hemoglobin A1C 05/01/2025 10/29/2024, 07/20/2024 Foot Exam 09/11/2025 09/11/2024, 08/27, 09/11/2024, Additional history exists Creatinine with GFR 11/06/2025 11/06/2024, 11/05/2024, 11/04/2024, Additional history exists Colonoscopy 11/06/2034 11/06/2024 Hepatitis B Vaccines Aged Out No long er eligible based on patient's age to complete this topic Medical Devices Implanted Type Area Mobile Designer Device Identifier Shelf Expiration Date Model / Serial / Lot Iflx-Gf-100 Influx Proteios Xl - [id number] Implanted:Qty: 1 on 10/12/2024 by Andrey Bailon MD at [facility] Tissue Bilatera l: Back [employer] 04/30/2029 IFLX-GF- 100 / [id number] / Iflx-Fw-05 Graft Bone Influx Plus Demineralized Bone Matrix 5 Cc Allogr - [id number] Implanted:Qty: 1 on 10/12/2024 by Andrey Bailon MD at [facility] Tissue Bilatera l: Back [employer] 06/23/2027 IFLX-FW- 05 / [id number] / [id number] Iflx-Fw-05 Graft Bone Influx Plus Demineralized Bone Matrix 5 Cc Allogr - [id number] Implanted:Qty: 1 on 10/12/2024 by Andrey Bailon MD at [facility] Tissue Bilatera l: Back [employer] 06/23/2027 IFLX-FW- 05 / [id number] / [id number] 620-010 Filler Bone Void 10cc 20cc Calcium Slf Stimulan Rpd Cure Kit - [id number] Implanted:Qty: 1 on 10/12/2024 by Andrey Bailon MD at [facility] Void Filler Bilatera l: Back [employer] - A BTG INT [id number] 04/28/2027 620-010 / / [id number] 7.5 X 50ml Screw Implanted:Qty: 2 on 10/12/2024 by Andrey Bailon MD at [facility] N/A: Spine Lumbar [facility] [id number] 50 / / 7.5 X 55mm Screw Implanted:Qty: 4 on 10/12/2024 by Andrey Bailon MD at [facility] N/A: Spine Lumbar [facility] [id number] / / 9.0 X 110 Screw Implanted:Qty: 2 on 10/12/2024 by Andrey Bailon MD at [facility] N/A: Spine Lumbar [facility] [id number] / / Set Screw Implanted:Qty: 8 on 10/12/2024 by Andrey Bailon MD at [facility] N/A: Spine Lumbar [facility] [id number] / / 120mm Adam Implanted:Qty: 2 on 10/12/2024 by Andrey Bailon MD at [facility] N/A: Spine Lumbar [facility] [id number] / / Procedures Procedure Name Priority Date/Time Associated Diagnosis Comments XR LUMBAR SPINE 2 OR 3 VIEWS Routine 11/20/2024 1:07 PM EDT S/P lumbar fusion POCT GLUCOSE, FINGERSTICK (CHARGE) Routine 11/07/2024 11:48 AM EDT POCT GLUCOSE, FINGERSTICK (CHARGE) Routine 11/07/2024 7:57 AM EDT COMPLETE BLOOD COUNT, WITHOUT DIFFERENTIAL Routine 11/07/2024 7:00 AM EDT POCT GLUCOSE, FINGERSTICK (CHARGE) Routine 11/07/2024 2:09 AM EDT POCT GLUCOSE, FINGERSTICK (CHARGE) Routine 11/06/2024 8:37 PM EDT POCT GLUCOSE, FINGERSTICK (CHARGE) Routine 11/06/2024 4:37 PM EDT POCT GLUCOSE, FINGERSTICK (CHARGE) Routine 11/06/2024 12:41 PM EDT POCT GLUCOSE, FINGERSTICK (CHARGE) Routine 11/06/2024 11:42 AM EDT COLONOSCOPY 11/06/2024 10:28 AM EDT Chronic anemia POCT GLUCOSE, FINGERSTICK (CHARGE) Routine 11/06/2024 10:18 AM EDT POCT GLUCOSE, FINGERSTICK (CHARGE) Routine 11/06/2024 7:35 AM EDT C-REACTIVE PROTEIN Routine 11/06/2024 6: 00 AM EDT ERYTHROCYTE SEDIMENTATION RATE (ESR) Routine 11/06/2024 6:00 AM EDT COMPREHENSIVE METABOLIC PANEL Routine 11/06/2024 6:00 AM EDT COMPLETE BLOOD COUNT, WITHOUT DIFFERENTIAL Routine 11/06/2024 6:00 AM EDT MAGNESIUM Routine 11/06/2024 6:00 AM EDT POCT GLUCOSE, FINGERSTICK (CHARGE) Routine 11/06/2024 2:04 AM EDT POCT GLUCOSE, FINGERSTICK (CHARGE) Routine 11/05/2024 8:27 PM EDT HEMOGLOBIN AND HEMATOCRIT Routine 11/05/2024 7:00 PM EDT POCT GLUCOSE, FINGERSTICK (CHARGE) Routine 11/05/2024 4:25 PM EDT POCT GLUCOSE, FINGERSTICK (CHARGE) Routine 11/05/2024 12:23 PM EDT POCT GLUCOSE, FINGERSTICK (CHARGE) Routine 11/05/2024 8:30 AM EDT POCT GLUCOSE, FINGERSTICK (CHARGE) Routine 11/05/2024 7:59 AM EDT COMPLETE BLOOD COUNT, WITHOUT DIFFERENTIAL Routine 11/05/2024 5:00 AM EDT MAGNESIUM Routine 11/05/2024 5:00 AM EDT BASIC METABOLIC PANEL Routine 11/05/2024 5:00 AM EDT POCT GLUCOSE, FINGERSTICK (CHARGE) Routine 11/05/2024 1:53 AM EDT POCT GLUCOSE, FINGERSTICK (CHARGE) Routine 11/04/2024 8:49 PM EDT HEMOGLOBIN AND HEMATOCRIT Routine 11/04/2024 6:30 PM EDT POCT GLUCOSE, FINGERSTICK (CHARGE) Routine 11/04/2024 4:46 PM EDT POCT GLUCOSE, FINGERSTICK (CHARGE) Routine 11/04/2024 12:07 PM EDT POCT GLUCOSE, FINGERSTICK (CHARGE) Routine 11/04/2024 7:58 AM EDT MAGNESIUM Routine 11/04/2024 6:22 AM EDT BASIC METABOLIC PANEL Routine 11/04/2024 6:22 AM EDT COMPLETE BLOOD COUNT, WITHOUT DIFFERENTIAL Routine 11/04/2024 6:22 AM EDT POCT GLUCOSE, FINGERSTICK (CHARGE) Routine 11/04/2024 3:34 AM EDT POCT GLUCOSE, FINGERSTICK (CHARGE) Routine 11/03/2024 8:47 PM EDT HEPATIC FUNCTION PANEL Routine 5:00 PM EDT HEMOGLOBIN AND HEMATOCRIT Routine 11/03/2024 5:00 PM EDT POCT GLUCOSE, FINGERSTICK (CHARGE) Routine 11/03/2024 4:45 PM EDT ENDOSCOPY UPPER 11/03/2024 2:08 PM EDT Chronic anemia POCT GLUCOSE, FINGERSTICK (CHARGE) Routine 11/03/2024 1:58 PM EDT POCT GLUCOSE, FINGERSTICK (CHARGE) Routine 11/03/2024 11:40 AM EDT RETICULOCYTE WITH INDEX Routine 11/04/19 9:40 AM EDT RED BLOOD CELL MORPHOLOGY Routine 11/03/2024 9:40 AM EDT COMPLETE BLOOD COUNT, WITHOUT DIFFERENTIAL Routine 11/03/2024 9:40 AM EDT POCT GLUCOSE, FINGERSTICK (CHARGE) Routine 11/03/2024 7:55 AM EDT TRANSFUSE RED BLOOD CELLS Routine 11/03/2024 7:48 AM EDT TRANSFUSE RED BLOOD CELLS Routine 11/03/2024 5:39 AM EDT PREPARE RBC'S Routine 11/03/2024 5:16 AM EDT LACTATE DEHYDROGENASE (LDH) Routine 11/03/2024 4:38 AM EDT HAPTOGLOBIN Routine 11/03/2024 4:38 AM EDT MAGNESIUM Routine 11/03/2024 4:38 AM EDT BASIC METABOLIC PANEL Routine 11/03/2024 4:38 AM EDT COMPLETE BLOOD COUNT, WITHOUT DIFFERENTIAL Routine 11/03/2024 4:38 AM EDT PREPARE RBC'S Routine 11/03/2024 4:17 AM EDT POCT GLUCOSE, FINGERSTICK (CHARGE) Routine 11/03/2024 2:07 AM EDT PATHOLOGY REPORT Routine 11/03/2024 12:0 0 AM EDT POCT GLUCOSE, FINGERSTICK (CHARGE) Routine 11/02/2024 9:31 PM EDT POCT GLUCOSE, FINGERSTICK (CHARGE) Routine 11/02/2024 8:13 PM EDT HEMOGLOBIN AND HEMATOCRIT Routine 11/02/2024 6:24 PM EDT POCT GLUCOSE, FINGERSTICK (CHARGE) Routine 11/02/2024 4:31 PM EDT POCT GLUCOSE, FINGERSTICK (CHARGE) Routine 11/02/2024 12:24 PM EDT TYPE AND SCREEN Routine 11/02/2024 11:57 AM EDT PROTIME-INR Routine 11/02/2024 11:25 AM EDT POCT GLUCOSE, FINGERSTICK (CHARGE) Routine 11/02/2024 8:36 AM EDT ABO CONFIRMATION Routine 11/02/2024 6:00 AM EDT MAGNESIUM Routine 11/02/2024 6:00 AM EDT COMPREHENSIVE METABOLIC PANEL Routine 11/02/2024 6:00 AM EDT COMPLETE BLOOD COUNT, WITHOUT DIFFERENTIAL Routine 11/02/2024 6:00 AM EDT POCT GLUCOSE, FINGERSTICK (CHARGE) Routine 11/01/2024 8:54 PM EDT POTASSIUM Routine 11/01/2024 6:00 PM EDT HEMOGLOBIN AND HEMATOCRIT Routine 11/01/2024 6:00 PM EDT POCT GLUCOSE, FINGERSTICK (CHARGE) Routine 11/01/2024 4:46 PM EDT POCT GLUCOSE, FINGERSTICK (CHARGE) Routine 11/01/2024 11:52 AM EDT XR CHEST 1 VIEW-PORTABLE Routine 11/01/2024 11:32 AM EDT HEPATIC FUNCTION PANEL Routine 7:50 AM EDT COMPLETE BLOOD COUNT, WITHOUT DIFFERENTIAL Routine 11/01/2024 7:50 AM EDT MAGNESIUM Routine 11/01/2024 7:50 AM EDT BASIC METABOLIC PANEL Routine 11/01/2024 7:50 AM EDT POCT GLUCOSE, FINGERSTICK (CHARGE) Routine 11/01/2024 7:45 AM EDT POCT GLUCOSE, FINGERSTICK (CHARGE) Routine 11/01/2024 2:27 AM EDT POCT GLUCOSE, FINGERSTICK (CHARGE) Routine 10/31/2024 8:12 PM EDT POCT GLUCOSE, FINGERSTICK (CHARGE) Routine 10/31/2024 5:58 PM EDT US DUPLEX ABDOMEN/PELVIS-COMPLETE Routine 10/31/2024 3:22 PM EDT POCT GLUCOSE, FINGERSTICK (CHARGE) Routine 10/31/2024 12:02 PM EDT POCT GLUCOSE, FINGERSTICK (CHARGE) Routine 10/31/2024 7:55 AM EDT MAGNESIUM Routine 10/31/2024 7:49 AM EDT COMPLETE BLOOD COUNT, WITHOUT DIFFERENTIAL Routine 10/31/2024 7:49 AM EDT BASIC METABOLIC PANEL Routine 10/31/2024 7:49 AM EDT POCT GLUCOSE, FINGERSTICK (CHARGE) Routine 10/31/2024 2:18 AM EDT MRI BRAIN W/O CONTRAST Routine 10:43 PM EDT POCT GLUCOSE, FINGERSTICK (CHARGE) Routine 10/30/2024 8:12 PM EDT POCT GLUCOSE, FINGERSTICK (CHARGE) Routine 10/30/2024 4:13 PM EDT ZINC LEVEL Routine 10/30/2024 1:34 PM EDT ALPHA-FETOPROTEIN (AFP), TUMOR MARKER Q9202 STAT 10/30/2024 1:34 PM EDT POCT GLUCOSE, FINGERSTICK (CHARGE) Routine 10/30/2024 12:44 PM EDT MAGNESIUM STAT 10/30/2024 8:45 AM EDT HEPATIC FUNCTION PANEL STAT 8:45 AM EDT COMPLETE BLOOD COUNT, WITHOUT DIFFERENTIAL STAT 10/30/2024 8:45 AM EDT BASIC METABOLIC PANEL STAT 10/30/2024 8:45 AM EDT POCT GLUCOSE, FINGERSTICK (CHARGE) Routine 10/30/2024 7:11 AM EDT POTASSIUM STAT 10/29/2024 11:24 PM EDT BLOOD CULTURE (HOSP LAB) STAT 10/29/2024 6:22 PM EDT POCT GLUCOSE, FINGERSTICK (CHARGE) Routine 10/29/2024 5:01 PM EDT BASIC METABOLIC PANEL STAT 10/29/2024 2:45 PM EDT COMPLETE BLOOD COUNT, WITHOUT DIFFERENTIAL STAT 10/29/2024 2:45 PM EDT US GUIDED BEDSIDE ABDOMINAL PARACENTESIS STAT 10/29/2024 1:53 PM EDT FUNGAL CULTURE (NON-BLOOD) Routine 10/29/2024 1:45 PM EDT MYCOBACTERIA CULTURE (INCLUDES ACID FAST SMEAR) Routine 10/29/2024 1:45 PM EDT BLOOD CULTURE (HOSP LAB) STAT 10/29/2024 1:40 PM EDT BODY FLUID CULTURE (AEROBIC, ANAEROBIC AND GRAM STAIN) STAT 10/29/2024 1:27 PM EDT PROTEIN, BODY FLUID STAT 10/29/2024 1 :26 PM EDT ALBUMIN, BODY FLUID STAT 10/29/2024 1 :26 PM EDT LACTATE DEHYDROGENASE (LDH), BODY FLUID STAT 10/29/2024 1:26 PM EDT GLUCOSE, BODY FLUID STAT 10/29/2024 1 :26 PM EDT CELL COUNT REFLEX DIFFERENTIAL, BODY FLUID STAT 10/29/2024 1:26 PM EDT CYTOLOGY REPORT STAT 10/29/2024 12:56 PM EDT POCT GLUCOSE, FINGERSTICK (CHARGE) Routine 10/29/2024 12:18 PM EDT URINALYSIS WITH REFLEX TO MICROSCOPIC AND CULTURE STAT 10/29/2024 10:43 AM EDT HEPATIC FUNCTION PANEL STAT 9:32 AM EDT HEMOGLOBIN A1C WITH ESTIMATED AVERAGE GLUCOSE STAT 10/29/2024 9:32 AM EDT FOLATE LEVEL STAT 10/29/2024 9:32 AM EDT POCT GLUCOSE, FINGERSTICK (CHARGE) Routine 10/29/2024 8:32 AM EDT URINALYSIS WITH REFLEX TO MICROSCOPIC AND CULTURE STAT 10/29/2024 3:04 AM EDT IRON AND TOTAL IRON BINDING CAPACITY STAT 10/28/2024 9:38 PM EDT FERRITIN STAT 10/28/2024 9:38 PM EDT CREATINE KINASE (CK) STAT 10/28/2024 9:38 PM EDT AMMONIA LEVEL STAT 10/28/2024 9:[address] HEAD W/O CONTRAST STAT 10/28/2024 7:47 PM EDT HIGH SENSITIVITY TROPONIN T Routine 10/28/2024 6:37 PM EDT XR CHEST 2 VIEWS STAT 10/28/2024 6:07 PM EDT HIGH SENSITIVITY TROPONIN T CARD 10/28/2024 5:46 PM EDT COMPREHENSIVE METABOLIC PANEL STAT 10/28/2024 5:46 PM EDT COMPLETE BLOOD COUNT, WITH DIFFERENTIAL STAT 10/28/2024 5:46 PM EDT PROTIME-INR Routine 10/28/2024 5:33 PM EDT ECG 12-LEAD STAT 10/28/2024 4:54 PM EDT MRI EXTERNAL RESULT 10/24/2024 1 2:49 PM EDT POCT GLUCOSE, FINGERSTICK (POCGLU) (NO CHARGE) Routine 10/20/2024 11:35 AM EDT POCT GLUCOSE, FINGERSTICK (POCGLU) (NO CHARGE) Routine 10/20/2024 6:21 AM EDT COMPLETE BLOOD COUNT, WITH DIFFERENTIAL Routine 10/20/2024 5:57 AM EDT BASIC METABOLIC PANEL Routine 10/20/2024 5:57 AM EDT POCT GLUCOSE, FINGERSTICK (POCGLU) (NO CHARGE) Routine 10/19/2024 9:21 PM EDT POCT GLUCOSE, FINGERSTICK (POCGLU) (NO CHARGE) Routine 10/19/2024 4:14 PM EDT POCT GLUCOSE, FINGERSTICK (POCGLU) (NO CHARGE) Routine 10/19/2024 11:40 AM EDT POCT GLUCOSE, FINGERSTICK (POCGLU) (NO CHARGE) Routine 10/19/2024 6:49 AM EDT POCT GLUCOSE, FINGERSTICK (POCGLU) (NO CHARGE) Routine 10/18/2024 9:02 PM EDT POCT GLUCOSE, FINGERSTICK (POCGLU) (NO CHARGE) Routine 10/18/2024 4:31 PM EDT POCT GLUCOSE, FINGERSTICK (POCGLU) (NO CHARGE) Routine 10/18/2024 11:31 AM EDT XR LUMBAR SPINE 2 OR 3 VIEWS Routine 10/18/2024 11:27 AM EDT POCT GLUCOSE, FINGERSTICK (POCGLU) (NO CHARGE) Routine 10/18/2024 6:32 AM EDT BASIC METABOLIC PANEL Routine 10/18/2024 4:40 AM EDT POCT GLUCOSE, FINGERSTICK (POCGLU) (NO CHARGE) Routine 10/17/2024 9:27 PM EDT POCT GLUCOSE, FINGERSTICK (POCGLU) (NO CHARGE) Routine 10/17/2024 4:20 PM EDT POCT GLUCOSE, FINGERSTICK (POCGLU) (NO CHARGE) Routine 10/17/2024 11:08 AM EDT XR LUMBAR SPINE 2 OR 3 VIEWS Routine 10/17/2024 9:35 AM EDT BASIC METABOLIC PANEL Routine 10/17/2024 8:14 AM EDT COMPLETE BLOOD COUNT, WITH DIFFERENTIAL Routine 10/17/2024 8:14 AM EDT POCT GLUCOSE, FINGERSTICK (POCGLU) (NO CHARGE) Routine 10/17/2024 6:00 AM EDT POCT GLUCOSE, FINGERSTICK (POCGLU) (NO CHARGE) Routine 10/16/2024 10:05 PM EDT POCT GLUCOSE, FINGERSTICK (POCGLU) (NO CHARGE) Routine 10/16/2024 4:18 PM EDT (REPORT) IRON AND TOTAL IRON BINDING CAPACITY Routine 10/16/2024 2:10 PM EDT C-REACTIVE PROTEIN Routine 10/16/2024 2: 10 PM EDT SED RATE SVESR Routine 10/16/2024 2:10 PM EDT IRON AND TOTAL IRON BINDING CAPACITY Routine 10/16/2024 2:10 PM EDT POCT GLUCOSE, FINGERSTICK (POCGLU) (NO CHARGE) Routine 10/16/2024 11:35 AM EDT VITAMIN B12 Routine 10/16/2024 6:55 AM EDT FERRITIN Routine 10/16/2024 6:55 AM EDT VANCOMYCIN LEVEL-RANDOM Timed 10/17/19 6:55 AM EDT COMPLETE BLOOD COUNT, WITH DIFFERENTIAL Routine 10/16/2024 6:55 AM EDT BASIC METABOLIC PANEL Routine 10/16/2024 6:55 AM EDT POCT GLUCOSE, FINGERSTICK (POCGLU) (NO CHARGE) Routine 10/16/2024 5:59 AM EDT POCT GLUCOSE, FINGERSTICK (POCGLU) (NO CHARGE) Routine 10/15/2024 9:55 PM EDT POCT GLUCOSE, FINGERSTICK (POCGLU) (NO CHARGE) Routine 10/15/2024 4:21 PM EDT POCT GLUCOSE, FINGERSTICK (POCGLU) (NO CHARGE) Routine 10/15/2024 11:10 AM EDT POCT GLUCOSE, FINGERSTICK (POCGLU) (NO CHARGE) Routine 10/15/2024 6:05 AM EDT VANCOMYCIN LEVEL-RANDOM Routine 10/16/19 5:42 AM EDT BASIC METABOLIC PANEL Routine 10/15/2024 5:42 AM EDT COMPLETE BLOOD COUNT, WITHOUT DIFFERENTIAL Routine 10/15/2024 5:42 AM EDT POCT GLUCOSE, FINGERSTICK (POCGLU) (NO CHARGE) Routine 10/14/2024 9:31 PM EDT POCT GLUCOSE, FINGERSTICK (POCGLU) (NO CHARGE) Routine 10/14/2024 4:23 PM EDT US RENAL STAT 10/14/2024 2:31 PM EDT UREA NITROGEN, RANDOM URINE Routine 10/14/2024 12:02 PM EDT SODIUM, URINE, RANDOM Routine 10/14/2024 12:02 PM EDT POTASSIUM, URINE, RANDOM Routine 10/14/2024 12:02 PM EDT CHLORIDE, URINE, RANDOM Routine 10/15/19 12:02 PM EDT CREATININE, URINE, RANDOM Routine 10/14/2024 12:02 PM EDT OSMOLALITY, URINE Routine 10/14/2024 12: 02 PM EDT URINALYSIS WITH REFLEX TO MICROSCOPIC Routine 10/14/2024 11:57 AM EDT CREATINE KINASE (CK) Routine 10/14/2024 11:41 AM EDT BASIC METABOLIC PANEL Routine 10/14/2024 11:41 AM EDT POCT GLUCOSE, FINGERSTICK (POCGLU) (NO CHARGE) Routine 10/14/2024 11:15 AM EDT BASIC METABOLIC PANEL Routine 10/14/2024 8:56 AM EDT COMPLETE BLOOD COUNT, WITHOUT DIFFERENTIAL Routine 10/14/2024 6:25 AM EDT POCT GLUCOSE, FINGERSTICK (POCGLU) (NO CHARGE) Routine 10/14/2024 6:04 AM EDT POCT GLUCOSE, FINGERSTICK (POCGLU) (NO CHARGE) Routine 10/13/2024 8:30 PM EDT POCT GLUCOSE, FINGERSTICK (POCGLU) (NO CHARGE) Routine 10/13/2024 4:42 PM EDT POCT GLUCOSE, FINGERSTICK (POCGLU) (NO CHARGE) Routine 10/13/2024 11:20 AM EDT POCT GLUCOSE, FINGERSTICK (POCGLU) (NO CHARGE) Routine 10/13/2024 6:42 AM EDT BASIC METABOLIC PANEL Routine 10/13/2024 6:12 AM EDT COMPLETE BLOOD COUNT, WITH DIFFERENTIAL Routine 10/13/2024 6:12 AM EDT POCT GLUCOSE, FINGERSTICK (POCGLU) (NO CHARGE) Routine 10/12/2024 5:43 PM EDT XR LUMBAR SPINE 2 OR 3 VIEWS Routine 10/12/2024 5:20 PM EDT AEROBIC CULTURE (GRAM STAIN INCLUDED) Routine 10/12/2024 4:12 PM EDT ANAEROBIC CULTURE Routine 10/12/2024 4:1 2 PM EDT AEROBIC CULTURE (GRAM STAIN INCLUDED) Routine 10/12/2024 4:11 PM EDT ANAEROBIC CULTURE Routine 10/12/2024 4:1 1 PM EDT MYCOBACTERIA CULTURE (INCLUDES ACID FAST SMEAR) Routine 10/12/2024 3:49 PM EDT FUNGAL CULTURE (NON-BLOOD) Routine 10/12/2024 3:49 PM EDT TISSUE CULTURE (AEROBIC, ANAEROBIC + GRAM STAIN) Routine 10/12/2024 3:49 PM EDT MYCOBACTERIA CULTURE (INCLUDES ACID FAST SMEAR) Routine 10/12/2024 2:55 PM EDT FUNGAL CULTURE (NON-BLOOD) Routine 10/12/2024 2:55 PM EDT TISSUE CULTURE (AEROBIC, ANAEROBIC + GRAM STAIN) Routine 10/12/2024 2:55 PM EDT PATHOLOGY REPORT Routine 10/12/2024 2:48 PM EDT ANES LINE - ARTERIAL Routine 10/12/2024 1:46 PM EDT ANES INTUBATION Routine 10/12/2024 12:46 PM EDT CLOSURE WOUND 10/12/2024 11:59 AM EDT Abscess Epidural abscess FUSION POSTERIOR LUMBAR 10/13/19 11:59 AM EDT Abscess Epidural abscess POCT GLUCOSE, FINGERSTICK (POCGLU) (NO CHARGE) Routine 10/12/2024 11:23 AM EDT POCT GLUCOSE, FINGERSTICK (POCGLU) (NO CHARGE) Routine 10/12/2024 8:05 AM EDT COMPREHENSIVE METABOLIC PANEL Routine 10/12/2024 5:22 AM EDT POCT GLUCOSE, FINGERSTICK (POCGLU) (NO CHARGE) Routine 10/12/2024 4:14 AM EDT POCT GLUCOSE, FINGERSTICK (POCGLU) (NO CHARGE) Routine 10/11/2024 11:54 PM EDT POCT GLUCOSE, FINGERSTICK (POCGLU) (NO CHARGE) Routine 10/11/2024 8:51 PM EDT POCT GLUCOSE, FINGERSTICK (POCGLU) (NO CHARGE) Routine 10/11/2024 5:07 PM EDT POCT GLUCOSE, FINGERSTICK (POCGLU) (NO CHARGE) Routine 10/11/2024 12:[address] LUMBAR SPINE W/O CONTRAST Routine 10/11/2024 12:06 PM EDT POCT GLUCOSE, FINGERSTICK (POCGLU) (NO CHARGE) Routine 10/11/2024 8:01 AM EDT COMPLETE BLOOD COUNT, WITH DIFFERENTIAL Routine 10/11/2024 6:10 AM EDT MR SPINE ARCHIVE FOR REFERENCE ONLY Routine 10/10/2024 6:41 PM EDT MR SPINE ARCHIVE FOR REFERENCE ONLY Routine 10/10/2024 6:35 PM EDT CR CHEST ARCHIVE FOR REFERENCE ONLY Routine 10/10/2024 6:35 PM EDT POCT GLUCOSE, FINGERSTICK (POCGLU) (NO CHARGE) Routine 10/10/2024 5:19 PM EDT BLOOD CULTURE (HOSP LAB) Routine 10/10/2024 2:07 PM EDT BLOOD CULTURE (HOSP LAB) Routine 10/10/2024 1:55 PM EDT C-REACTIVE PROTEIN Routine 10/10/2024 1: 31 PM EDT SED RATE SVESR Routine 10/10/2024 1:31 PM EDT COMPLETE BLOOD COUNT, WITH DIFFERENTIAL Routine 10/10/2024 5:49 AM EDT MAGNESIUM Routine 10/09/2024 11:57 PM EDT COMPLETE BLOOD COUNT, WITHOUT DIFFERENTIAL Routine 10/09/2024 11:57 PM EDT BASIC METABOLIC PANEL Routine 10/09/2024 11:57 PM EDT ECG 12-LEAD STAT 10/09/2024 11:34 PM EDT POCT GLUCOSE, FINGERSTICK (POCGLU) (NO [...] EDT from Last 3 Months Results * XR Lumbar spine 2 or 3 views (11/20/2024 1:07 PM EDT) Only the most recent of4 resultswithin the time period is included. Anatomical Region Laterality Modality L-spine Digital Radiogra [...] are overall stable since the comparison x-rays. Merle MAIER IMG DIAGNOSTIC IMAGIN G ORDERABLES Final Result * (ABNORMAL) POCT Glucose, Fingerstick (11/07/2024 11:48 AM EDT) Only the most recent of49 resultswithin the time period is included. Pathologist [facility] POC Glucose 216(H) 65 - 99 mg/dL 11/07/2024 11:52 AM EDT Blood specimen / Unknown 11/07/2024 11:48 AM EDT 11/07/2024 11:52 AM EDT Ann Marie Bloom MD POINT OF CARE TEST ORDERABLES Fi nal Result HOSPITAL LAB See Below * (ABNORMAL) COMPLETE BLOOD COUNT, WITHOUT DIFFERENTIAL (11/07/2024 7:00 AM EDT) Only the most recent of17 resultswithin the time period is included. Pathologist [facility] White Blood Cell Count 4.7 4.0 - 11.0 Thou/uL 11/07/2024 10:49 AM [facility] Platelet Count 115(L) 150 - 450 Thou/uL 11/07/2024 10:49 AM [facility] Hemoglobin 7.7(L) 13.0 - 17.7 g/dL 11/07/2024 10:49 AM [facility] Hematocrit 24.1(L) 39.0 - 54.0 % 11/07/2024 10:49 AM [facility] Red Blood Cell Count 2.63(L) 4.50 - 6.20 Mil/uL 11/07/2024 10:49 AM [facility] MCV 92 80 - 100 fL 11/07/2024 10:49 AM [facility] MCH 29.3 27.0 - 31.0 pg 11/07/2024 10:49 AM [facility] MCHC 32.0 30.0 - 36.0 g/dL 11/07/2024 10:49 AM [facility] RDW 21.3(H) 11.5 - 14.5 % 11/07/2024 10:49 AM [facility] MPV 11.1 7.5 - 12.5 fL 11/07/2024 10:49 AM [facility] Immature Platelet Fraction 5.6 1.2 - 8.6 % 11/07/2024 10:49 AM [facility] Blood Blood specimen / Unknown 11/07/2024 7:00 AM EDT 11/07/2024 10:19 AM EDT us Mahesh Interiano MD LAB BLOOD ORDERABLES Final R esult [address] [address], [address] [address] * Erythrocyte Sedimentation Rate (ESR) (11/06/2024 6:00 AM EDT) Erythrocyte Sediment Rate (ESR) 19 <20 MM/HR 11/06/2024 7:06 AM [facility] Blood Blood specimen / Unknown 11/06/2024 6:00 AM EDT 11/06/2024 6:49 AM EDT us Mahesh Interiano MD LAB BLOOD ORDERABLES Final R esult Performing Organization Address [facility] Co de Phone Number [address] [address], [address] [address] * (ABNORMAL) C-Reactive Protein (11/06/2024 6:00 AM EDT) Only the most recent of5 resultswithin the time period is included. C-Reactive Protein 1.60(H) 0 - 0.49 mg/dL 11/06/2024 7:39 AM EDT [facility] Blood Blood specimen / Unknown 11/06/2024 6:00 AM EDT 11/06/2024 6:49 AM EDT us Mahesh Interiano MD LAB BLOOD ORDERABLES Final R esult Performing Organization Address [facility] Co de Phone Number [address] [address], [address] [address] * Magnesium (AM) (11/06/2024 6:00 AM EDT) Only the most recent of14 resultswithin the time period is included. Magnesium 1.6 1.6 - 2.7 mg/dL 11/06/2024 7:39 AM EDT [facility] Blood Blood specimen / Unknown 11/06/2024 6:00 AM EDT 11/06/2024 6:49 AM EDT us Mahesh Interiano MD LAB BLOOD ORDERABLES Final R esult Performing Organization Address City/[facility] Co de Phone Number [address] [address], [address] [address] * (ABNORMAL) Comprehensive Metabolic Panel (11/06/2024 6:00 AM EDT) Only the most recent of6 resultswithin the time period is included. Glucose 183(H) 65 - 99 mg/dL 11/06/2024 7:39 AM [facility] Comment:Fasting: <100 mg/dL, Non-Fasting: <200 mg/dL (ADA 2004) Blood Urea Nitrogen (BUN) 7(L) 8 - 21 mg/dL 11/06/2024 7:39 AM [facility] Creatinine 0.8 0.5 - 1.3 mg/dL 11/06/2024 7:39 AM [facility] eGFR >90 >59 11/06/2024 7:39 AM [facility] Comment:CKD-EPI (2020) in mL /min/1.73 sq meters. Sodium 140 136 - 145 mmol/L 11/06/2024 7:39 AM [facility] Potassium 4.1 3.4 - 5.3 mmol/L 11/06/2024 7:39 AM [facility] Chloride 105 98 - 107 mmol/L 11/06/2024 7:39 AM [facility] CO2 23 22 - 33 mmol/L 11/06/2024 7:39 AM [facility] Calcium 9.1 8.7 - 10.5 mg/dL 11/06/2024 7:39 AM [facility] Alkaline Phosphatase 124 45 - 128 U/L 11/06/2024 7:39 AM [facility] Aspartate Aminotrans (AST) 43 10 - 55 U/L 11/06/2024 7:39 AM [facility] Alanine Aminotrans (ALT) 21 10 - 55 U/L 11/06/2024 7:39 AM [facility] Bilirubin, Total 2.5(H) 0.2 - 1.0 mg/dL 11/06/2024 7:39 AM [facility] Protein, Total 6.1(L) 6.3 - 8.3 g/dL 11/06/2024 7:39 AM [facility] Albumin 3.4(L) 3.5 - 5.0 g/dL 11/06/2024 7:39 AM [facility] BUN/Creatinine Ratio 9(L) 10.0 - 25.0 Ratio 11/06/2024 7:39 AM EDT [facility] Globulin 2.7 1.5 - 3.9 g/dL 11/06/2024 7:39 AM EDT [facility] Albumin/Globulin Ratio 1.3 1.0 - 3.0 Ratio 11/06/2024 7:39 AM EDT [facility] Anion Gap 12 7 - 17 11/06/2024 7:39 AM EDT [facility] Blood Blood specimen / Unknown 11/06/2024 6:00 AM EDT 11/06/2024 6:49 AM EDT Mahesh Interiano MD LAB BLOOD ORDERABLES Final R esult Performing Organization Address City/[facility] [place] [address], [place] [address] * (ABNORMAL) Hemoglobin and Hematocrit (11/05/2024 7:00 PM EDT) Only the most recent of5 resultswithin the time period is included. Hematocrit 24.0(L) 39.0 - 54.0 % 11/05/2024 8:39 PM T [facility] Hemoglobin 7.7(L) 13.0 - 17.7 g/dL 11/05/2024 8:39 PM T [facility] Blood Blood specimen / Unknown 11/05/2024 7:00 PM EDT 11/05/2024 8:12 PM EDT Mahesh Interiano MD LAB BLOOD ORDERABLES Final R esult Performing Organization Address City/[facility]/[place] [address], [address] [address] * (ABNORMAL) Basic Metabolic Panel (11/05/2024 5:00 AM EDT) Only the most recent of20 resultswithin the time period is included. Glucose 156(H) 65 - 99 mg/dL 11/05/2024 5:52 AM EDT [facility] Comment:Fasting: <100 mg/dL, Non-Fasting: <200 mg/dL (ADA 2005) Blood Urea Nitrogen (BUN) 6(L) 8 - 21 mg/dL 11/05/2024 5:52 AM [facility] Creatinine 0.8 0.5 - 1.3 mg/dL 11/05/2024 5:52 AM [facility] eGFR >90 >59 11/05/2024 5:52 AM [facility] Comment:CKD-EPI (2020) in mL /min/1.73 sq meters. Sodium 141 136 - 145 mmol/L 11/05/2024 5:52 AM [facility] Potassium 3.5 3.4 - 5.3 mmol/L 11/05/2024 5:52 AM [facility] Chloride 108(H) 98 - 107 mmol/L 11/05/2024 5:52 AM [facility] CO2 22 22 - 33 mmol/L 11/05/2024 5:52 AM [facility] Anion Gap 11 7 - 17 11/05/2024 5:52 AM [facility] Calcium 8.4(L) 8.7 - 10.5 mg/dL 11/05/2024 5:52 AM [facility] BUN/Creatinine Ratio 8(L) 10.0 - 25.0 Ratio 11/05/2024 5:52 AM [facility] Blood Blood specimen / Unknown 11/05/2024 5:00 AM EDT 11/05/2024 5:29 AM EDT us Mahesh Interiano MD LAB BLOOD ORDERABLES Final R esult [address] [address], [address] [address] * (ABNORMAL) Hepatic Function Panel (Routine) (11/03/2024 5:00 PM EDT) Only the most recent of4 resultswithin the time period is included. Alkaline Phosphatase 104 45 - 128 U/L 11/03/2024 7:36 PM EDT [facility] Aspartate Aminotrans (AST) 49 10 - 55 U/L 11/03/2024 7:36 PM EDT [facility] Alanine Aminotrans (ALT) 17 10 - 55 U/L 11/03/2024 7:36 PM EDT [facility] Bilirubin, Total 3.1(H) 0.2 - 1.0 mg/dL 11/03/2024 7:36 PM EDT [facility] Protein, Total 5.9(L) 6.3 - 8.3 g/dL 11/03/2024 7:36 PM EDT [facility] Albumin 3.4(L) 3.5 - 5.0 g/dL 11/03/2024 7:36 PM EDT [facility] Bilirubin, Direct 1.2(H) 0 - 0.2 mg/dL 11/03/2024 7:36 PM EDT [facility] Globulin 2.5 1.5 - 3.9 g/dL 11/03/2024 7:36 PM [facility] Albumin/Globulin Ratio 1.4 1.0 - 3.0 Ratio 11/03/2024 7:36 PM [facility] Blood Blood specimen / Unknown 11/03/2024 5:00 PM EDT 11/03/2024 6:58 PM EDT us Mahesh Interiano MD LAB BLOOD ORDERAB[place] [address], [place] [address] * (ABNORMAL) Reticulocyte with Index (11/03/2024 9:40 AM EDT) Reticulocyte Count 3.8(H) 0.7 - 2.0 % 11/03/2024 6:46 PM EDT [facility] Reticulocyte, Absolute 106.1(H) 30.0 - 100.0 Thou/uL 11/03/2024 6:46 PM [facility] Reticulocyte Index 2.0 1.0 - 2.0 % 11/03/2024 6:46 PM EDT [facility] Retic Hemoglobin Content 35.50(H) 28 - 35 pg 11/03/2024 6:46 PM EDT [facility] Immature Reticulocyte Fraction 19.5(H) 2.3 - 15.9 % 11/03/2024 6:46 PM EDT [facility] Blood specimen / Unknown 11/03/2024 9:40 AM EDT 11/03/2024 10:44 AM EDT Mahesh Interiano MD LAB BLOOD ORDERABLES Final R esult Performing Organization Address [facility] [place] [address], [place] [address] * Red Blood Cell Morphology (11/03/2024 9:40 AM EDT) Normochromic Present 11/03/2024 11:43 PM EDT [facility] Normocytic Present 11/03/2024 11:43 PM EDT [facility] Blood specimen / Unknown 11/03/2024 9:40 AM EDT 11/03/2024 10:44 AM EDT Mahseh Interiano MD LAB BLOOD ORDERABLES Final R esult Performing Organization Address [facility] [place] [address], [place] [address] * Prepare RBC's:Prepare in: Units; Number of Units: 1; Transfusion Indications: Hemoglobin less than 7 gm/dl or HCT less than 21% (11/03/2024 5:16 AM EDT) Only the most recent of2 resultswithin the time period is included. Units Ordered 1 11/03/2024 5:16 AM EDT 11/03/2024 5:16 AM EDT 11/03/2024 5:18 AM EDT us Leighann Osorio APRN BLOOD BANK PRODUCT ORDERAB LES Final Result Performing Organization Address City/[facility] Co de Phone Number HOSPITAL LAB See Below * (ABNORMAL) LACTATE DEHYDROGENASE (LDH) (11/03/2024 4:38 AM EDT) Lactate Dehydrogenase (LDH) 294(H) 120 - 260 U/L 11/03/2024 10:24 AM EDT [facility] 11/03/2024 4:38 AM EDT 11/03/2024 4:49 AM EDT Mahesh Interiano MD LAB BLOOD ORDERABLES Final R esult Performing Organization Address [facility] [place] [address], [place] [address] * (ABNORMAL) HAPTOGLOBIN (11/03/2024 4:38 AM EDT) Haptoglobin <10(L) 30 - 200 mg/dL 11/03/2024 10:24 AM EDT [facility] 11/03/2024 4:38 AM EDT 11/03/2024 4:49 AM EDT Mahesh Interiano MD LAB BLOOD ORDERABLES Final R esult Performing Organization Address [facility] [place] [address], [place] [address] * Pathology (11/03/2024 12:00 AM EDT) Only the most recent of2 resultswithin the time period is included. Report Please See Procedures/Addenda Results Below [facility] [id number] CLIA ID [id number] [address] [place] [address] [phone] Surgical Pathology Report PATIENT NAME: MARTIN ALVES [facility] REC NUMBER: [id number] (AGE): 1965 (Age: 58) SPECIMEN NUMBER: [id number] DATE OBTAINED: 11/03/2024 DIAGNOSIS ENDOSCOPIC BIOPSIES: A. STOMACH: GASTRIC ANTRAL GLAND MUCOSA WITH REACTIVE GASTROPATHY. H. PYLORI IMMUNOHISTOCHEMICAL STAIN WILL BE REPORTED IN AN ADDENDUM. ky/11/07/2024 Electronically Signed Out TETO BRADFORD MD COMMENT [id number] Clinical Information and History: Procedure: Upper GI endoscopy. Indications: Suspected upper gastrointestinal intestinal bleeding. Impression: - Grade 2 esophageal varices with no stigmata of recent bleeding. Completely irradicated. Banded. - Portal hypertensive gastropathy. - Erosive gastropathy with no stigmata of recent bleeding. Biopsied. - Normal examined duodenum. Tissue(s) Submitted: A: STOMACH, EROSION (GASTROPATHY) Gross Description: Specimen is received in formalin labeled per the requisition as stomach, erosion (gastropathy) and consists of two lópez-white to lópez-pink irregular soft tissues measuring 0.3 cm and 0.4 cm. The specimen is submitted in toto labeled A1. SJ1 Procedures/Addenda: Addendum Date Ordered: 11/09/2024 Status: Signed Out Date Complete: 11/09/2024 By: TETO BRADFORD Date Reported: 11/09/2024 Addendum Diagnosis NEGATIVE FOR H. PYLORI (NEGATIVE IMMUNOHISTOCHEMICAL STAIN). [address] The tests used in the work-up of this specimen may include Analyte-Specific Reagents (ASRs). The Immunopathology/Morpho logic Proteomics Laboratory at [facility] has established the performance characteristics of these reagents. They have not been cleared or approved by the [place] Food and Drug Administration (FDA); however, the FDA has determined that such clearance or approval is not necessary for their use. All positive controls show appropriate immunoreactivity. Addendum Comment {Not Entered} HOSPITAL LAB 11/03/2024 11/04/2024 5:3 9 AM EDT Comment:STOMACH, EROSION (GA STROPATHY) us Lisa Duarte DO PATHOLOGY/CYTOLOGY ORDER GINA Final Result HOSPITAL LAB See Below * Type and Screen (11/02/2024 11:57 AM EDT) ABO/Rh A POSITIVE 11/02/2024 1:49 PM EDT [facility] Antibody Screen NEGATIVE 11/02/2024 1:49 PM T [facility] Specimen Expiration 11/05/2024 11/02/2024 1:49 PM T [facility] Blood Bank Comment Second Sample needed for Blood Transfusion 11/02/2024 1:49 PM T [facility] Unit Number [id number] 11/03/2024 4:54 AM EDT [facility] Blood Component Type LEUKOREDUCED RED CELLS 11/03/2024 4:54 AM EDT [facility] Unit Division 00 11/03/2024 4:54 AM [facility] Unit Status ISSUED,FINAL 11/04/2024 12:24 AM [facility] Transfusion Status OK TO TRANSFUSE 11/03/2024 4:54 AM [facility] Crossmatch Result Electronically Compatible 11/03/2024 4:54 AM [facility] Unit Number [id number] 11/03/2024 5:19 AM [facility] Blood Component Type LEUKOREDUCED RED CELLS [facility]/03[facility]2024 5:[facility] 11/03/2024 5:19 AM [facility] Unit Status ISSUED,FINAL 11/04/2024 12:24 AM [facility] Transfusion Status OK TO TRANSFUSE 11/03/2024 5:19 AM [facility] Crossmatch Result Electronically Compatible 11/03/2024 5:19 AM [facility] Blood Blood specimen / Unknown 11/02/2024 11:57 AM EDT 11/02/2024 12:44 PM EDT Comment:Blood us Lisa Duarte DO BLOOD BANK TEST ORDERABL ES Final Result HOSPITAL LAB See Below [address] [address] * (ABNORMAL) Protime-INR (AM) (11/02/2024 11:25 AM EDT) Only the most recent of3 resultswithin the time period is included. Anticoagulant NO ANTI COAGULANT MEDS 11/02/2024 7:36 AM EDT [facility] Prothrombin Time (PT) 16.9(H) 10.0 - 13.5 seconds 11/02/2024 12:36 PM EDT [facility] INR 1.5 11/02/2024 12:36 PM EDT [facility] Comment:INR Therapeutic Rang es: Standard dose anticoagulant 2.0 to 3.0, High dose anticoagulant 2.5-3.5. Blood Blood specimen / Unknown 11/02/2024 11:25 AM EDT 11/02/2024 12:06 PM EDT Lisa Duarte DO LAB BLOOD ORDERABLES Fin al Result Performing Organization Address [facility] [place] [address], [place] [address] * ABO Confirmation (11/02/2024 6:00 AM EDT) ABO/Rh A POSITIVE 11/03/2024 4:53 AM EDT [facility] Blood specimen / Unknown 11/02/2024 6:00 AM EDT 11/03/2024 4:26 AM EDT Ann Marie Bloom MD BLOOD BANK TEST ORDERABLES Final Result Performing Organization Address [facility] [place] [address], [place] [address] * Potassium (11/01/2024 6:00 PM EDT) Only the most recent of2 resultswithin the time period is included. Potassium 3.6 3.4 - 5.3 mmol/L 11/01/2024 7:05 PM EDT [facility] Blood Blood specimen / Unknown 11/01/2024 6:00 PM EDT 11/01/2024 6:37 PM EDT Mahesh Interiano MD LAB BLOOD ORDERABLES Final R esult Performing Organization Address City/[facility]/ZIP Co de Phone Number [address] [place] [address], [facility] [address] [place] [address] * XR Chest 1 view-Portable (STAT) (11/01/2024 11:32 AM EDT) Anatomical Region Laterality Modality Chest Computed Radiogr aphy 11/01/2024 11:0 6 AM EDT Impressions 11/01/2024 4:05 PM EDT Left-sided PICC, with the tip overlying the cavoatrial junction. Narrative 11/01/2024 4:05 PM EDT EXAMINATION: XR CHEST CLINICAL INFORMATION: Confirm PICC line position COMPARISON: Chest radiograph 10/28/2024 TECHNIQUE: Frontal view of the chest was obtained. FINDINGS: Left-sided PICC, with the tip overlying the cavoatrial junction. Cardiomediastinal silhouette is within normal limits. No consolidation, effusion or pneumothorax. Pulmonary vasculature is unremarkable. No acute osseous abnormality. Left distal clavicular osteolysis/resection. Procedure Note Pravin Lee MD - 11/01/2024 EXAMINATION: XR CHEST CLINICAL INFORMATION: Confirm PICC line position COMPARISON: Chest radiograph 10/28/2024 TECHNIQUE: Frontal view of the chest was obtained. FINDINGS: Left-sided PICC, with the tip overlying the cavoatrial junction. Cardiomediastinal silhouette is within normal limits. No consolidation, effusion or pneumothorax. Pulmonary vasculature is unremarkable. No acute osseous abnormality. Left distal clavicular osteolysis/resection. IMPRESSION: Left-sided PICC, with the tip overlying the cavoatrial junction. us Mahesh Interiano MD IMG DIAGNOSTIC IMAGING ORDER [facility] Final Result * US Duplex abdomen/pelvis-Complete (10/31/2024 3:22 PM EDT) Anatomical Region Laterality Modality Vascular Ultrasound 10/31/2024 2:40 PM EDT Impressions 11/01/2024 10:14 AM EDT 1. Cirrhotic morphology of the liver. 2. All visualized vessels are patent. Narrative 11/01/2024 10:14 AM EDT EXAMINATION: US DUPLEX ABDOMEN/PELVIS-COMPLETE CLINICAL INFORMATION: Hepatic encephalopathy COMPARISON: None. TECHNIQUE: Real-time imaging of the abdominal viscera. Color and spectral Doppler evaluation of the hepatic vasculature. FINDINGS: LIVER: The liver demonstrates normal size. Coarsened echotexture and lobular contour. No focal liver lesion. No intrahepatic biliary duct dilatation. SPLENIC VEIN: Patent with normal waveforms. HEPATIC VEINS: Patent with normal waveforms. PORTAL VEINS: Patent with normal waveforms and hepatopetal flow. HEPATIC ARTERIES: Normal upstroke and diastolic flow. INFERIOR VENA CAVA: Patent with normal waveforms. GALLBLADDER: The gallbladder is physiologically distended without evidence of stones, sludge, polyps, wall thickening or pericholecystic fluid. Negative reported sonographic Nagy's sign. COMMON BILE DUCT: Normal in caliber measuring 0.4 cm in diameter. PANCREAS: The visualized portion of the pancreas appears normal in appearance. The remainder of the pancreas is obscured from visualization by the overlying bowel gas. RIGHT KIDNEY: No hydronephrosis. No renal calculi or focal parenchymal lesions. The kidney measures 12.0 cm in maximum dimension. LEFT KIDNEY: No hydronephrosis. No renal calculi or focal parenchymal lesions. The kidney measures 12.7 cm in maximum dimension. SPLEEN: Enlarged. Spleen measures 17 cm in maximum dimension. ABDOMINAL AORTA: The visualized proximal segment is normal in caliber. INFERIOR VENA CAVA: Visualized portions are normal. FREE FLUID: Trace ascites. Procedure Note Sydnie Louise MD - 11/01/2024 EXAMINATION: US DUPLEX ABDOMEN/PELVIS-COMPLETE CLINICAL INFORMATION: Hepatic encephalopathy COMPARISON: None. TECHNIQUE: Real-time imaging of the abdominal viscera. Color and spectral Doppler evaluation of the hepatic vasculature. FINDINGS: LIVER: The liver demonstrates normal size. Coarsened echotexture and lobular contour. No focal liver lesion. No intrahepatic biliary duct dilatation. SPLENIC VEIN: Patent with normal waveforms. HEPATIC VEINS: Patent with normal waveforms. PORTAL VEINS: Patent with normal waveforms and hepatopetal flow. HEPATIC ARTERIES: Normal upstroke and diastolic flow. INFERIOR VENA CAVA: Patent with normal waveforms. GALLBLADDER: The gallbladder is physiologically distended without evidence of stones, sludge, polyps, wall thickening or pericholecystic fluid. Negative reported sonographic Nagy's sign. COMMON BILE DUCT: Normal in caliber measuring 0.4 cm in diameter. PANCREAS: The visualized portion of the pancreas appears normal in appearance. The remainder of the pancreas is obscured from visualization by the overlying bowel gas. RIGHT KIDNEY: No hydronephrosis. No renal calculi or focal parenchymal lesions. The kidney measures 12.0 cm in maximum dimension. LEFT KIDNEY: No hydronephrosis. No renal calculi or focal parenchymal lesions. The kidney measures 12.7 cm in maximum dimension. SPLEEN: Enlarged. Spleen measures 17 cm in maximum dimension. ABDOMINAL AORTA: The visualized proximal segment is normal in caliber. INFERIOR VENA CAVA: Visualized portions are normal. FREE FLUID: Trace ascites. IMPRESSION: 1. Cirrhotic morphology of the liver. 2. All visualized vessels are patent. us Derrick Cuello MD [facility] US ORDERABLES Final Result * MRI Brain w/o contrast (10/30/2024 10:43 PM EDT) Anatomical Region Laterality Modality Head Magnetic Resonan ce 10/30/2024 10:0 0 PM EDT Impressions 10/30/2024 10:55 PM EDT 1. No acute intracranial findings or suspicious intracranial lesions. 2. Mild global parenchymal volume loss and patchy microangiopathic white matter changes. Narrative 10/30/2024 10:55 PM EDT EXAMINATION: MRI BRAIN WITHOUT CONTRAST. INDICATION: 58 years old, Male slurring of speech and left side facial droop for ~2 weeks TECHNIQUE: Multiplanar multisequence magnetic resonance images of the brain without intravenous contrast . COMPARISON: October 28, 2024. FINDINGS: ACUTE INTRACRANIAL ABNORMALITIES: No acute infarct. No acute intracranial hemorrhage. EXTRA-AXIAL SPACES: No extra-axial fluid collection. POSTOPERATIVE CHANGES AND INTRACRANIAL LESIONS: No suspicious intracranial lesions. VENTRICULAR SYSTEM: Ventricles and extraventricular CSF spaces are widened, consistent with mild global parenchymal volume loss. WHITE MATTER: Patchy T2/FLAIR hyperintense white matter foci consistent with chronic microvascular ischemic changes. SKULL BASE/PITUITARY: No crowding in the foramen magnum. Basal cisterns are widely patent and pituitary is normal appearing. VASCULATURE: Patent major intracranial flow-voids. CALVARIUM: No suspicious calvarial lesions. ORBITS/SINUSES/MASTOIDS: No intraorbital masses. No acute paranasal sinus disease. Mastoids are well-aerated. Procedure Note Guanakito Henry MD - 10/30/2024 EXAMINATION: MRI BRAIN WITHOUT CONTRAST. INDICATION: 58 years old, Male slurring of speech and left side facial droop for ~2 weeks TECHNIQUE: Multiplanar multisequence magnetic resonance images of the brain without intravenous contrast . COMPARISON: October 28, 2024. FINDINGS: ACUTE INTRACRANIAL ABNORMALITIES: No acute infarct. No acute intracranial hemorrhage. EXTRA-AXIAL SPACES: No extra-axial fluid collection. POSTOPERATIVE CHANGES AND INTRACRANIAL LESIONS: No suspicious intracranial lesions. VENTRICULAR SYSTEM: Ventricles and extraventricular CSF spaces are widened, consistent with mild global parenchymal volume loss. WHITE MATTER: Patchy T2/FLAIR hyperintense white matter foci consistent with chronic microvascular ischemic changes. SKULL BASE/PITUITARY: No crowding in the foramen magnum. Basal cisterns are widely patent and pituitary is normal appearing. VASCULATURE: Patent major intracranial flow-voids. CALVARIUM: No suspicious calvarial lesions. ORBITS/SINUSES/MASTOIDS: No intraorbital masses. No acute paranasal sinus disease. Mastoids are well-aerated. IMPRESSION: 1. No acute intracranial findings or suspicious intracranial lesions. 2. Mild global parenchymal volume loss and patchy microangiopathic white matter changes. Derrick Cuello MD [facility] MRI ORDERABLES Final Result * Alpha-Fetoprotein (AFP), Tumor Marker (10/30/2024 1:34 PM EDT) Alpha-Fetoprotein (AFP), Tumor Marker 1.6 <6.1 ng/mL 11/03/2024 4:07 PM EDT [facility] Comment: (NOTE) This test was performed using the Yahaira Morris chemiluminescent method. Values obtained from different assay methods cannot be used interchangeably. AFP levels, regardless of value, should not be interpreted as absolute evidence of the presence or absence of disease. Test performed by [facility] [address] [place] [address] Residential Sales Representative: Faby Smith MD,PHD,JOSH Test Reported by [employer], [place], [address] [place], [place] Jigar Woods M.D., Ph.D., Director of Laboratories , [facility] [id number] Blood Blood specimen / Unknown 10/30/2024 1:34 PM EDT 10/30/2024 1:48 PM EDT us Derrick Cuello MD LAB BLOOD ORDERABLES Final Resu lt Performing Organization Address [facility] de Phone Number [facility], [facility] [address] , [employer], [place] [address] * (ABNORMAL) Zinc Level (10/30/2024 1:34 PM EDT) Zinc 37(L) 60 - 130 mcg/dL 11/02/2024 1:47 AM EDT [facility] Comment: (NOTE) This test was developed and its analytical performance characteristics have been determined by [employer] [place], [place]. It has not been cleared or approved by the U.S. Food and Drug Administration. This assay has been validated pursuant to the CLIA regulations and is used for clinical purposes. Blood Blood specimen / Unknown 10/30/2024 1:34 PM EDT 10/30/2024 1:48 PM EDT us Derrick Cuello MD LAB BLOOD ORDERABLES Final Resu lt Performing Organization Address [facility] de Phone Number [employer] [facility] [address] , [employer] [place], [place] [address] [facility] [address] [place] [address] * Blood Culture (10/29/2024 6:22 PM EDT) Only the most recent of6 resultswithin the time period is included. Culture Sterile after 5 days 11/03/2024 8:38 AM EDT [facility] Blood Blood specimen / Unknown 10/29/2024 6:22 PM EDT 10/29/2024 8:41 PM EDT Comment:Blood us Derrick Cuello MD LAB BLOOD ORDERABLES Final Resu lt [facility] [address] [place] [address], [place] * US Guided Bedside Abdominal Paracentesis (10/29/2024 1:53 PM EDT) Anatomical Region Laterality Modality Ultrasound Narrative 10/29/2024 1:57 PM EDT PROCEDURE: ULTRASOUND-GUIDED DIAGNOSTIC PARACENTESIS INDICATION: New onset Ascites SPECIMEN: Specimen collected as requested. Sample left with bedside RN. ACCESS: 5 Citizen [place] One-Step needle/catheter system REQUESTING PRACTITIONER: Derrick Cuello MD CLINICIAN(S): LIVIER Manjarrez CONSENT: Informed consent was obtained from the patient prior to the procedure. During this process, the procedure and potential alternatives were explained along with the intended outcome and benefits. The risks of the procedure, including the possibility of an unsuccessful procedure as well as the risk of not doing the procedure were discussed. the patient was given the opportunity to ask any questions regarding the procedure and appeared competent to make medical decisions. A signed consent form which documents this discussion was placed in the medical record. A timeout procedure was performed. HISTORY:Martin Alves is a 58 y.o. old male who was found to have a physical exam and/or imaging suspicious for ascites. The patient was referred for an ultrasound-guided paracentesis. MEDICATIONS: 10ml 1% lidocaine. TECHNIQUE: Appropriate pre-procedure medical history and imaging studies were reviewed. The ultrasound machine was brought to the patients bedside. The patient placed in the supine position. Ultrasound images of the abdomen were obtained to localize a collection of ascites large enough to safely perform the procedure. Images were permanently saved to the record. An area of the right lower quadrant was prepped and draped in the standard sterile fashion. 10 mL of 1% lidocaine was used to obtain local anesthesia of the skin and deeper tissues. A standard small bore needle was introduced to sample fluid and demonstrated a safe access route. There was no evidence of traversing adjacent organs or vascular structures. A 5 [place] One-Step needle/catheter system was utilized for access. 1 liters of yellow fluid was aspirated and sent for analysis. The catheter was removed and sterile dressing applied. The patient tolerated the procedure well without evidence of complications. CONCLUSION: Ultrasound-guided diagnostic paracentesis yielding 1 liters of yellow fluid as described. This procedure was performed by LIVIER Manjarrez. us Derrick Cuello MD IMG US ORDERABLES Final Result * Fungal Culture (non-blood) (10/29/2024 1:45 PM EDT) Only the most recent of3 resultswithin the time period is included. Culture No fungus isolated 11/13/2024 7:52 AM EDT [facility] Abdominal Cavity 10/29/2024 1:45 PM EDT 10/29/2024 2:46 PM EDT Comment:Fluid, Ascitic us Ann Marie Bloom MD MICROBIOLOGY - GENERAL ORDERABLE S Final Result Performing Organization Address [facility] Co de Phone Number [facility] [address] [place] [address], * Body Fluid Culture, Ascites (includes Aerobic, Anaerobic and Gram Stain) (10/29/2024 1:27 PM EDT) Special Requests Limited quantity of fluid received, results may be impacted. 10/30/2024 9:40 AM EDT [facility] Gram stain suggestive of Few neutrophils Mononuclear cells No organisms seen 10/29/2024 3:04 PM EDT [facility] Culture No aerobes and anaerobes isolated after 7 days 11/05/2024 3:12 PM EDT [facility] Fluid, Ascitic (Abdominal Cavity) 10/29/2024 1:27 PM EDT 10/29/2024 2:22 PM EDT Comment:Fluid, Ascitic Derrick Cuello MD MICROBIOLOGY - GENERAL ORDERABL ES Final Result [facility] [address] [place] [address], [address] [address] * Protein, Body Fluid (10/29/2024 1:26 PM EDT) Source Abdominal Cavity 10/29/2024 1:27 PM EDT [facility] Comment:Fluid, Ascitic Protein, Body Fluid 0.7 g/dL 10/29/2024 2:36 PM EDT [facility] Comment:The reference interv al(s) and other method performance specifications are unavailable for this body fluid. Comparison of this result with the concentration in the blood, serum, or plasma is recommended. Fluid, Ascitic (Abdominal Cavity) 10/29/2024 1:26 PM EDT 10/29/2024 2:10 PM EDT us Derrick Cuello MD BODY FLUIDS AND STOOLS ORDERABL ES Final Result Performing Organization Address [facility] [place] [address], [place] [address] * LDH, Ascites (10/29/2024 1:26 PM EDT) Source Abdominal Cavity 10/29/2024 1:27 PM EDT [facility] Comment:Fluid, Ascitic Lactate Dehydrogenase, Body Fluid 41 U/L 10/29/2024 2:36 PM EDT [facility] Comment:The reference interv al(s) and other method performance specifications are unavailable for this body fluid. Comparison of this result with the concentration in the blood, serum, or plasma is recommended. Fluid, Ascitic (Abdominal Cavity) 10/29/2024 1:26 PM EDT 10/29/2024 2:10 PM EDT us Derrick Cuello MD BODY FLUIDS AND STOOLS ORDERABL ES Final Result Performing Organization Address [facility] [place] [address], [place] [address] * Glucose, Ascites (10/29/2024 1:26 PM EDT) Source Abdominal Cavity 10/29/2024 1:27 PM EDT [facility] Comment:Fluid, Ascitic Glucose, Body Fluid 138 mg/dL 10/29/2024 2:36 PM EDT [facility] Comment:The reference interv al(s) and other method performance specifications are unavailable for this body fluid. Comparison of this result with the concentration in the blood, serum, or plasma is recommended. Fluid, Ascitic (Abdominal Cavity) 10/29/2024 1:26 PM EDT 10/29/2024 2:10 PM EDT us Derrick Cuello MD BODY FLUIDS AND STOOLS ORDERABL ES Final Result Performing Organization Address [facility] Co de Phone Number [address] [address], [address] [address] * Albumin, Body Fluid (10/29/2024 1:26 PM EDT) Source Abdominal Cavity 10/29/2024 1:27 PM EDT [facility] Comment:Fluid, Ascitic Albumin, Body Fluid 0.3 g/dL 10/29/2024 2:36 PM EDT [facility] Comment:The reference interv al(s) and other method performance specifications are unavailable for this body fluid. Comparison of this result with the concentration in the blood, serum, or plasma is recommended. Fluid, Ascitic (Abdominal Cavity) 10/29/2024 1:26 PM EDT 10/29/2024 2:10 PM EDT us Derrick Cuello MD BODY FLUIDS AND STOOLS ORDERABL ES Final Result Performing Organization Address [facility] Co de Phone Number [address] [address], [address] [address] * Cell Count, Reflex Differential, Body Fluid (10/29/2024 1:26 PM EDT) Appearance, Body Fluid Clear 10/29/2024 3:15 PM EDT [facility] Color Yellow 10/29/2024 3:15 PM EDT [facility] Nucleated Cells, Fluid 82 /CUMM 10/29/2024 2:25 PM EDT [facility] RBC, Fluid <2,000 /CUMM 10/29/2024 2:25 PM EDT [facility] Neutrophil, Body Fluid 3 % 10/29/2024 3:15 PM EDT [facility] Lymphoctye, Body Fluid 29 % 10/29/2024 3:15 PM EDT [facility] Monocyte, Body Fluid 9 % 10/29/2024 3:15 PM EDT [facility] Histiocyte, Body Fluid 57 % 10/29/2024 3:15 PM EDT [facility] Mesothelial, Body Fluid 2 % 10/29/2024 3:15 PM EDT [facility] Smear Comment, Body Fluid The reference interval and other method performance specifications are unavailable for this body fluid. Comparison of the result with concentration in the blood, serum, or plasma is recommended 10/29/2024 3:15 PM EDT [facility] Fluid, Ascitic (Abdominal Cavity) 10/29/2024 1:26 PM EDT 10/29/2024 2:10 PM EDT us Derrick Cuello MD BODY FLUIDS AND STOOLS ORDERABL [place] [address], [place] [address] * Cytology Report (10/29/2024 12:56 PM EDT) Report [facility] [id number] CLIA ID [id number] [address] [place] [address] / [phone] Cytopathology Report PATIENT NAME: MARTIN ALVES REC NUMBER: [id number] (AGE): 1965 (Age: 58) SPECIMEN NUMBER: [id number] DATE OBTAINED: 10/29/2024 DIAGNOSIS: A. ASCITIC FLUID WITH CELL BLOCK: NEGATIVE FOR MALIGNANT CELLS. REACTIVE MESOTHELIAL CELLS, HISTIOCYTES, AND INFLAMMATORY CELLS [facility]/10/31/2024 Electronically Signed Out MOISÉS DODSON MD Clinical Diagnosis and History: ABDOMINAL ASCITES FLUID Tissue(s) Submitted: A: Ascitic Fluid WITH CELL BLOCK Specimen Description: RECEIVED 1010 MLS CLOUDY YELLOW FLUID [1 THINPREP MADE] PLUS CELL BLOCK 1 SLIDE TOTAL AND CELL BLOCK, TIME IN FORMALIN 08:00 [facility]OSPITAL [facility] 10/29/2024 12:5 6 PM EDT 10/30/2024 3:00 AM EDT Comment:Ascitic Fluid WITH C ELL BLOCK us Derrick Cuello MD PATHOLOGY/CYTOLOGY ORDERABLES F inal Result [facility] See Below * Urinalysis with Reflex to Microscopic and Culture (10/29/2024 10:43 AM EDT) Only the most recent of2 resultswithin the time period is included. Color Yellow 10/29/2024 11:13 AM EDT Clarity Clear 10/29/2024 11:13 AM EDT Specific [place] 1.010 1.005 - 1.030 10/29/2024 11:13 AM EDT pH 6.5 5.0 - 8.0 10/29/2024 11:13 AM EDT Leukocyte Esterase Negative Negative 10/29/2024 11:13 AM EDT Nitrite Negative Negative 10/29/2024 11:13 AM EDT Protein Negative Negative mg/dL 10/29/2024 11:13 AM EDT Glucose Negative Negative mg/dL 10/29/2024 11:13 AM EDT Ketones Negative Negative mg/dL 10/29/2024 11:13 AM EDT Blood Negative Negative 10/29/2024 11:13 AM EDT Bilirubin Negative Negative 10/29/2024 11:13 AM EDT Urine Voided urine specimen / Unknown 10/29/2024 10:43 AM EDT 10/29/2024 10:51 AM EDT us Ann Marie Bloom MD URINE ORDERABLES Final Result [facility] See Below * (ABNORMAL) Hemoglobin A1c with Estimated Average Glucose (10/29/2024 9:32 AM EDT) Pathologist [facility] Hemoglobin A1C 6.7(H) <5.7 % 10/29/2024 11:21 AM EDT [facility] Comment: A1c% Interpretation 5.7 - 6.0 Increase risk of diabetes 6.1 - 6.4 Higher risk of diabetes > or = 6.5 Consistent with diabetes Diabetes Care, 33(Supp 1):S1-S61, 2010 Estimated Average Glucose 146 mg/dL 10/29/2024 11:21 AM EDT [facility] Blood Blood specimen / Unknown 10/29/2024 9:32 AM EDT 10/29/2024 9:40 AM EDT us Roman Rangel MD LAB BLOOD [place]AB[place] [address], [place] [address] * Folate Level (10/29/2024 9:32 AM EDT) [facility] Folate, Serum 9.9 >7.2 ng/mL 10/29/2024 10:28 AM EDT [facility] Comment:Specimen hemolyzed. Results may be artifactually elevated. Blood Blood specimen / Unknown 10/29/2024 9:32 AM EDT 10/29/2024 9:41 AM EDT us Roman Rangel MD LAB BLOOD [place]AB[place] [address], [place] [address] * (ABNORMAL) Iron and Total Iron Binding Capacity (10/28/2024 9:38 PM EDT) [facility] Iron 67 53 - 167 ug/dL 10/29/2024 2:45 AM EDT [facility] UIBC 79(L) 112 - 346 ug/dL 10/29/2024 2:45 AM EDT [facility] Total Iron Binding Capacity 146 100 - 400 ug/dL 10/29/2024 2:45 AM EDT [facility] Iron Sat 46 20 - 50 % 10/29/2024 2:45 AM EDT [facility] 10/28/2024 9:38 PM EDT 10/28/2024 9:47 PM EDT us Ann Marie Bloom MD LAB BLOOD ORDERABLES Final Resul t Performing Organization Address City/[facility]/[place] [address], [address] [address] * FERRITIN (10/28/2024 9:38 PM EDT) Only the most recent of2 resultswithin the time period is included. Ferritin 213 30 - 400 ug/L 10/29/2024 2:45 AM EDT [facility] 10/28/2024 9:38 PM EDT 10/28/2024 9:47 PM EDT us Ann Marie Bloom MD LAB BLOOD ORDERABLES Final Resul t Performing Organization Address [facility] [place] [address], [address] [address] * CK (10/28/2024 9:38 PM EDT) Only the most recent of2 resultswithin the time period is included. Creatine Kinase (CK) 64 24 - 204 U/L 10/28/2024 10:14 PM EDT [facility] Blood Blood specimen / Unknown 10/28/2024 9:38 PM EDT 10/28/2024 9:47 PM EDT us Ann Marie Bloom MD LAB BLOOD ORDERABLES Final Resul t Performing Organization Address City/[facility] [place] [address], [address] [address] * Ammonia (10/28/2024 9:38 PM EDT) Ammonia, Plasma 57 16 - 60 umol/L 10/28/2024 10:30 PM EDT [facility] Blood Blood specimen / Unknown 10/28/2024 9:38 PM EDT 10/28/2024 9:43 PM EDT us Ann Marie Bloom MD LAB BLOOD ORDERABLES Final Resul t [facility] [address] [place] [address], [address] [address] * CT Head w/o contrast (10/28/2024 7:47 PM EDT) Anatomical Region Laterality Modality Head Computed Tomogra phy 10/28/2024 7:23 PM EDT Impressions 10/28/2024 8:07 PM EDT * No acute intracranial hemorrhage or abnormal carey-white matter differentiation to suggest edematous territorial infarction. 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 Interpreted by: Donato Wang MD Hat Cleaner I personally reviewed the images and the resident's preliminary report and AGREE with the report as it is now presented ([id number]). Narrative 10/28/2024 8:07 PM EDT EXAMINATION: CT HEAD WITHOUT CONTRAST CLINICAL INFORMATION: AMS COMPARISON: None. TECHNIQUE: Multidetector CT imaging of the head was obtained without the use of intravenous contrast. This CT examination was performed using dose optimization techniques as appropriate, variously including the following: * Automated exposure control * Adjustment of mA and/or kV according to patient size (this includes techniques or standardized protocols for targeted exams where dose is matched to indication/reason for exam; i.e. extremities or head) * Use of iterative reconstruction technique DLP: 836 mGy-cm. FINDINGS: No acute intracranial hemorrhage or evidence of edematous territorial infarction. Carey-white matter differentiation is preserved. A few foci of hypoattenuation in the periventricular and deep white matter are consistent with mild microangiopathy. Proportional prominence of the ventricles and sulcal spaces without evidence of obstructive hydrocephalus. No abnormal mass effect or midline shift. No extra-axial fluid collections. No acute soft tissue or osseous abnormalities. The mastoid air cells and visualized paranasal sinuses are clear. Procedure Note Ric Sutton DO - 10/28/2024 EXAMINATION: CT HEAD WITHOUT CONTRAST CLINICAL INFORMATION: AMS COMPARISON: None. TECHNIQUE: Multidetector CT imaging of the head was obtained without the use of intravenous contrast. This CT examination was performed using dose optimization techniques as appropriate, variously including the following: * Automated exposure control * Adjustment of mA and/or kV according to patient size (this includes techniques or standardized protocols for targeted exams where dose is matched to indication/reason for exam; i.e. extremities or head) * Use of iterative reconstruction technique DLP: 836 mGy-cm. FINDINGS: No acute intracranial hemorrhage or evidence of edematous territorial infarction. Carey-white matter differentiation is preserved. A few foci of hypoattenuation in the periventricular and deep white matter are consistent with mild microangiopathy. Proportional prominence of the ventricles and sulcal spaces without evidence of obstructive hydrocephalus. No abnormal mass effect or midline shift. No extra-axial fluid collections. No acute soft tissue or osseous abnormalities. The mastoid air cells and visualized paranasal sinuses are clear. IMPRESSION: * No acute intracranial hemorrhage or abnormal carey-white matter differentiation to suggest edematous territorial infarction. 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 Interpreted by: Donato Wang MD Hat Cleaner I personally reviewed the images and the resident's preliminary report and AGREE with the report as it is now presented ([email or web address]). Anna MAIER [facility] CT ORDERABLES Final Result * (ABNORMAL) High Sensitivity Troponin T (10/28/2024 6:37 PM EDT) Only the most recent of2 resultswithin the time period is included. High Sensitivity Troponin T 37(H) <23 ng/L 10/28/2024 7:46 PM EDT [facility] Delta (Change) 1 <3 10/28/2024 7:46 PM EDT [facility] Comment:Increased 10/28/2024 6:37 PM EDT 10/28/2024 7:08 PM EDT us Anna MAIER LAB BLOOD ORDERABLES Final Resu lt [facility] [address] [place] [address], [facility] [address] [place] [address] * XR Chest 2 views (10/28/2024 6:07 PM EDT) Anatomical Region Laterality Modality Chest Computed Radiogr aphy 10/28/2024 5:21 PM EDT Impressions 10/28/2024 7:44 PM EDT Low lung volumes with bronchovascular crowding. Right medial lung base streaky opacities favor atelectasis. Interpreted by: Rodger De La Vega DO Hat Cleaner I personally reviewed the images and the resident's preliminary report and AGREE with the report as it is now presented ([email or web address]). Narrative 10/28/2024 7:44 PM EDT EXAMINATION: XR CHEST CLINICAL INFORMATION: weakness COMPARISON: Chest radiograph 10/10/2023. TECHNIQUE: PA and lateral radiographs of the chest were obtained. FINDINGS: Left-sided PICC terminates over the expected right atrium. Low lung volumes with bronchovascular crowding. Minimal right medial streaky opacities with silhouetting of the adjacent cardiac border. No pneumothorax. No pleural effusion. No acute osseous findings. Stable left distal clavicular changes. There are surgical anchors overlying the right humeral head. Procedure Note Ric Sutton DO - 10/28/2024 EXAMINATION: XR CHEST CLINICAL INFORMATION: weakness COMPARISON: Chest radiograph 10/10/2023. TECHNIQUE: PA and lateral radiographs of the chest were obtained. FINDINGS: Left-sided PICC terminates over the expected right atrium. Low lung volumes with bronchovascular crowding. Minimal right medial streaky opacities with silhouetting of the adjacent cardiac border. No pneumothorax. No pleural effusion. No acute osseous findings. Stable left distal clavicular changes. There are surgical anchors overlying the right humeral head. IMPRESSION: Low lung volumes with bronchovascular crowding. Right medial lung base streaky opacities favor atelectasis. Interpreted by: Rodger De La Vega DO Hat Cleaner I personally reviewed the images and the resident's preliminary report and AGREE with the report as it is now presented ([email or web address]). us Anna MAIER IMG DIAGNOSTIC IMAGING ORDERABL ES Final Result * (ABNORMAL) Complete Blood Count, with Differential (10/28/2024 5:46 PM EDT) Only the most recent of9 resultswithin the time period is included. White Blood Cell Count 4.7 4.0 - 11.0 Thou/uL 10/28/2024 5:57 PM [facility] Platelet Count 136(L) 150 - 450 Thou/uL 10/28/2024 5:57 PM [facility] Hemoglobin 7.5(L) 13.0 - 17.7 g/dL 10/28/2024 5:57 PM [facility] Hematocrit 22.7(L) 39.0 - 54.0 % 10/28/2024 5:57 PM [facility] Red Blood Cell Count 2.57(L) 4.50 - 6.20 Mil/uL 10/28/2024 5:57 PM [facility] MCV 88 80 - 100 fL 10/28/2024 5:57 PM [facility] MCH 29.2 27.0 - 31.0 pg 10/28/2024 5:57 PM [facility] MCHC 33.0 30.0 - 36.0 g/dL 10/28/2024 5:57 PM [facility] RDW 18.6(H) 11.5 - 14.5 % 10/28/2024 5:57 PM [facility] MPV 9.4 7.5 - 12.5 fL 10/28/2024 5:57 PM [facility] Neutrophils Auto 64.9 % [facility] Granulocytes 0.2 % 10/28/2024 5:57 PM [facility] Lymphocytes Auto 23.6 % 10/29/19 5:57 PM [facility] Monocytes Auto 7.0 % 10/28/2024 5:57 PM [facility] Eosinophils Auto 3.0 % 10/29/19 5:57 PM [facility] Basophils Auto 1.3 % 10/28/2024 5:57 PM EDT [facility] Abs Neutrophils Auto 3.08 2.00 - 7.50 Thou/uL 10/28/2024 5:57 PM EDT [facility] Abs Immature Granulocytes 0.01 0.00 - 0.10 Thou/uL 10/28/2024 5:57 PM EDT [facility] Abs Lymphocytes Auto 1.12(L) 1.50 - 4.50 Thou/uL 10/28/2024 5:57 PM EDT [facility] Abs Monocytes Auto 0.33 0.20 - 1.50 Thou/uL 10/28/2024 5:57 PM EDT [facility] Abs Eosinophils Auto 0.14 0.00 - 0.70 Thou/uL 10/28/2024 5:57 PM EDT [facility] Abs Basophils Auto 0.06 0.00 - 0.20 Thou/uL 10/28/2024 5:57 PM EDT [facility] Blood Blood specimen / Unknown 10/28/2024 5:46 PM EDT 10/28/2024 5:49 PM EDT us Anna MAIER LAB BLOOD [place]AB[place] [address], [place] [address] * ECG 12 lead (10/28/2024 4:54 PM EDT) Only the most recent of3 resultswithin the time period is included. Ventricular rate 90 BPM EKG [facility] Atrial rate 90 BPM EKG [facility] P-R interval 134 ms EKG [facility] QRS duration 96 ms EKG [facility] Q-T interval 400 ms EKG [facility] QTC calculation (Bazett) 490 ms EKG [facility] P axis 15 degrees EKG [facility] R axis 57 degrees EKG [facility] T axis 48 degrees EKG [facility] 10/28/2024 4:54 PM EDT Narrative EKG [facility] - 10/28/2024 5:19 PM EDT Normal sinus rhythm with sinus arrhythmia Nonspecific ST and T wave abnormality Prolonged QT Abnormal ECG Confirmed by MD Luke John ([id number]) on 10/28/2024 5:19:25 PM Procedure Note Mateusz Luke MD - 10/28/2024 Normal sinus rhythm with sinus arrhythmia Nonspecific ST and T wave abnormality Prolonged QT Abnormal ECG Confirmed by MD Luke John ([id number]) on 10/28/2024 5:19:25 PM us Anna MAIER ECG ORDERABLES Final Result EKG [facility] * MRI External Result (10/24/2024 12:49 PM EDT) Anatomical Region Laterality Modality Magnetic Resonan ce Narrative 10/24/2024 12:49 PM EDT Ordered by an unspecified provider. us Generic Provider IMG MRI ORDERABLES Final Result * (ABNORMAL) POCT Glucose, Fingerstick (10/20/2024 11:35 AM EDT) Only the most recent of69 resultswithin the time period is included. POC Glucose 137(H) 65 - 99 mg/dL 10/20/2024 11:43 AM EDT Comment:Notified RN Blood specimen / Unknown 10/20/2024 11:35 AM EDT 10/20/2024 11:43 AM EDT us Chau Portillo MD POINT OF CARE TEST ORDERABLES Final Result [facility] See Below * (ABNORMAL) Iron and Total Iron Binding Capacity (10/16/2024 2:10 PM EDT) Iron 42(L) 65 - 175 ug/dL 10/16/2024 2:54 PM EDT [facility] UIBC 141 ug/dL 10/16/2024 2:54 PM EDT [facility] Total Iron Binding Capacity 183(L) 250 - 425 ug/dL 10/16/2024 2:54 PM EDT [facility] Iron Sat 23 20 - 50 % 10/16/2024 2:54 PM EDT [facility] 10/16/2024 2:10 PM EDT 10/16/2024 2:27 PM EDT Chau Portillo MD LAB BLOOD ORDERABLES Final Res ult [facility] [address] [place] [address], [place] * (ABNORMAL) Sed Rate (10/16/2024 2:10 PM EDT) Only the most recent of4 resultswithin the time period is included. Sedimentation Rate 90(H) 0 - 15 MM/HR 10/16/2024 3:31 PM EDT [facility] Blood Blood specimen / Unknown 10/16/2024 2:10 PM EDT 10/16/2024 2:26 PM EDT Chau Portillo MD LAB BLOOD ORDERABLES Final Res ult Performing Organization Address City/[facility]/[place] [address], [place] * VITAMIN B12 (10/16/2024 6:55 AM EDT) Vitamin B12 749 211 - 911 pg/mL 10/16/2024 8:37 AM EDT [facility] 10/16/2024 6:55 AM EDT 10/16/2024 7:31 AM EDT Chau Portillo MD LAB BLOOD ORDERABLES Final Res ult Performing Organization Address City/[facility]/[place] [address], [place] * Vancomycin Level, Random (10/16/2024 6:55 AM EDT) Only the most recent of2 resultswithin the time period is included. Vancomycin, Random 16 mg/L 10/16/2024 7:56 AM EDT [facility] Comment:No reference range e stablished for random levels. Time of Last Dose Information not given 10/16/2024 6:36 AM EDT [facility] Blood Blood specimen / Unknown 10/16/2024 6:55 AM EDT 10/16/2024 7:31 AM EDT us Chau Portillo MD LAB BLOOD ORDERABLES Final Res ult [facility] [address] [place] [address], [place] * US Renal (10/14/2024 2:31 PM EDT) Anatomical Region Laterality Modality Abdomen Ultrasound 10/14/2024 2:59 PM EDT Impressions 10/14/2024 3:04 PM EDT No RIGHT-sided hydronephrosis. Left kidney is poorly visualized. No significant hydronephrosis. If this exam was interpreted by a resident, I personally reviewed the image(s) and resident's interpretation and agree with the findings. Narrative 10/14/2024 3:04 PM EDT CLINICAL INFORMATION: GIBRAN, oliguria, rule out hydronephrosis. TECHNIQUE: Real-time ultrasound of the retroperitoneum, including kidneys, bladder, and aorta was performed. COMPARISON: None. FINDINGS: Right Kidney: Measures 12 cm. No right hydronephrosis, mass or calculus is visualized. Left Kidney: Poorly visualized. No significant hydronephrosis. Vessels: Visualized portions of the aorta, common iliac artery origins, and IVC are unremarkable. Bladder: Decompressed around a Churchill catheter and incompletely evaluated. Procedure Note Darci Celis MD - 10/14/2024 CLINICAL INFORMATION: GIBRAN, oliguria, rule out hydronephrosis. TECHNIQUE: Real-time ultrasound of the retroperitoneum, including kidneys,bladder, and aorta was performed. COMPARISON: None. FINDINGS: Right Kidney: Measures 12 cm. No right hydronephrosis, mass or calculus isvisualized. Left Kidney: Poorly visualized. No significant hydronephrosis. Vessels: Visualized portions of the aorta, common iliac artery origins,and IVC are unremarkable. Bladder: Decompressed around a Churchill catheter and incompletely evaluated. IMPRESSION: No RIGHT-sided hydronephrosis. Left kidney is poorly visualized. No significant hydronephrosis. If this exam was interpreted by a resident, I personally reviewed theimage(s) and resident's interpretation and agree with the findings. Chau Portillo MD IM US ORDERABLES Final Result * Urea Nitrogen, Random Urine (10/14/2024 12:02 PM EDT) Urea Nitrogen, Random Urine 122 mg/dL 10/14/2024 12:50 PM EDT [facility] Comment:Reference range not established for random specimen. Urine Urine specimen / Unknown 10/14/2024 12:02 PM EDT 10/14/2024 12:20 PM EDT Chau Portillo MD URINE ORDERABLES Final Result Performing Organization Address City/[facility]/ZIP Co de Phone Number [facility] [address] [place] [address], [place] * SODIUM, URINE, RANDOM (10/14/2024 12:02 PM EDT) Only the most recent of2 resultswithin the time period is included. Sodium, Urine Random 14 mmol/L 10/14/2024 12:50 PM EDT [facility] Comment:Reference range not established for random specimen. Urine specimen / Unknown 10/14/2024 12:02 PM EDT 10/14/2024 12:20 PM EDT Chau Portillo MD URINE ORDERABLES Final Result Performing Organization Address City/[facility]/ZIP Co de Phone Number [facility] [address] [place] [address], [place] * Potassium, Random Urine (10/14/2024 12:02 PM EDT) Potassium, Urine (Random) 64 mmol/L 10/14/2024 12:50 PM EDT [facility] Comment:Reference range not established for random specimen. Urine specimen / Unknown 10/14/2024 12:02 PM EDT 10/14/2024 12:20 PM EDT Chau Portillo MD [place] [address], [place] * OSMOLALITY, URINE (10/14/2024 12:02 PM EDT) Osmolality, Urine 304 50 - 1,200 mOsm/Kg 10/14/2024 1:01 PM EDT [facility] Urine specimen / Unknown 10/14/2024 12:02 PM EDT 10/14/2024 12:20 PM EDT Chau Portillo MD URINE ORDERABLES Final Result Performing Organization Address City/[facility]/[place] [address], [place] * CREATININE, URINE, RANDOM (10/14/2024 12:02 PM EDT) Creatinine, Urine, Random 114 mg/dL 10/14/2024 12:50 PM EDT [facility] Comment:Reference range not established for random specimen. Urine specimen / Unknown 10/14/2024 12:02 PM EDT 10/14/2024 12:20 PM EDT Chau Portillo MD [place] [address], [place] * Chloride, Urine, Random (10/14/2024 12:02 PM EDT) Chloride, Urine, Random 25 mmol/L 10/14/2024 12:50 PM EDT [facility] Comment:Reference range not established for random specimen. Urine specimen / Unknown 10/14/2024 12:02 PM EDT 10/14/2024 12:20 PM EDT us Chau Portillo MD URINE ORDERABLES Final Result [facility] [address] [place] [address], [place] * (ABNORMAL) Urinalysis with Reflex to Microscopic (10/14/2024 11:57 AM EDT) Color Dark yellow 10/14/2024 12:47 PM EDT [facility] Clarity Turbid 10/14/2024 12:47 PM EDT [facility] Specific [place] 1.023 1.003 - 1.030 10/14/2024 12:47 PM EDT [facility] pH 5.5 5.0 - 8.0 10/14/2024 12:47 PM EDT [facility] Leukocyte Esterase Small(A) Negative 10/14/2024 12:47 PM EDT [facility] Nitrite Negative Negative 10/14/2024 12:47 PM EDT [facility] Protein Small (30 mg/dL)(A) Negative 10/14/2024 12:47 PM EDT [facility] Glucose 100(H) 0 - 99 mg/dL 10/14/2024 12:47 PM EDT [facility] Ketones Trace(A) Negative 10/14/2024 12:47 PM EDT [facility] Blood Moderate(A) Negative 10/14/2024 12:47 PM EDT [facility] Urobilinogen 1.0 0.2 - 1.0 EU/dL 10/14/2024 12:47 PM EDT [facility] Bilirubin Small(A) Negative 10/14/2024 12:47 PM EDT [facility] WBC 122(H) 0 - 4 per hpf 10/14/2024 12:49 PM EDT [facility] RBC 0 0 - 4 per hpf 10/14/2024 12:49 PM EDT [facility] Bacteria Negative Negative 10/14/2024 12:49 PM EDT [facility] Squamous Epithelial Cells 1 per hpf 10/14/2024 12:49 PM EDT [facility] Hyaline Casts 10(H) 0 - 4 per lpf 10/14/2024 12:49 PM EDT [facility] Yeast ANAEROBIC SUBCULTURE(A ) Absent 10/14/2024 12:49 PM EDT [facility] Urine Urine specimen / Unknown 10/14/2024 11:57 AM EDT 10/14/2024 12:20 PM EDT us Chau Portillo MD URINE ORDERABLES Final Result [facility] [address] [place] [address], * Aerobic culture (Gram stain included) (10/12/2024 4:12 PM EDT) Only the most recent of2 resultswithin the time period is included. Gram stain suggestive of Few neutrophils Few squamous cells Red blood cells No organisms seen 10/12/2024 7:00 PM EDT [facility] Culture Negative after 3 days 10/15/2024 8:18 AM EDT [facility] Exudate Specimen from spinal cord / Unknown 10/12/2024 4:12 PM EDT us Andrey Bailon MD MICROBIOLOGY - GENERAL ORDER GINA Final Result [facility] [address] [place] [address], [facility] [address] [place] [address] * Anaerobic Culture (10/12/2024 4:12 PM EDT) Only the most recent of2 resultswithin the time period is included. Culture No anaerobes isolated after 7 days 10/19/2024 9:34 AM EDT [facility] Exudate Specimen from spinal cord / Unknown 10/12/2024 4:12 PM EDT Andrey Bailon MD MICROBIOLOGY - GENERAL ORDER GINA Final Result [facility] [address] [place] [address], [place] * Mycobacteria Culture (includes Acid Fast Smear) (10/12/2024 3:49 PM EDT) Only the most recent of2 resultswithin the time period is included. Culture No acid fast bacilli isolated. 11/24/2024 1:05 PM EDT [facility] Tissue Specimen from spinal cord / Unknown 10/12/2024 3:49 PM EDT Andrey Bailon MD MICROBIOLOGY - GENERAL ORDER GINA Final Result [facility] [address] [place] [address], * Tissue Culture (aerobic, anaerobic + Gram stain) (10/12/2024 3:49 PM EDT) Only the most recent of2 resultswithin the time period is included. Gram stain suggestive of No neutrophils No organisms seen 10/12/2024 11:44 PM EDT [facility] Culture No aerobes and anaerobes isolated after 7 days 10/20/2024 11:03 AM EDT [facility] Tissue Specimen from spinal cord / Unknown 10/12/2024 3:49 PM EDT us Andrey Bailon MD MICROBIOLOGY - GENERAL ORDER GINA Final Result [facility] [address] [place] [address], [place] * ANES LINE - ARTERIAL (10/12/2024 1:46 PM EDT) Viral Dennis CRNA - 10/12/2024 1:46 PM EDT Viral Cowan CRNA 10/12/2024 1:49 PM Anesthesia Procedure Note - Arterial Line Insertion- L radial Patient Name: Martin Alves : 1965 Procedure diagnosis: Anesthesia Performed by: Resident/ICE RINK ATTENDANT MD Viral Almonte CRNA Procedure Preparation Skin prep: 2% chlorhexidine - completely dried prior to procedure Hand hygeine performed prior to needle/catheter insertion Sterile barriers in place: cap, gloves and mask Sterile gel used for Ultrasound Procedure Details Zeus's test normal? normal Needle: 20 g Number of attempts: 2 Post Procedure Post-procedure: dressing applied us Carlos Akhtar MD [facility] ANESTHESIA Final Resul t * ANES INTUBATION (10/12/2024 12:46 PM EDT) Viral Dennis CRNA - 10/12/2024 12:46 PM EDT Viral Cowan CRNA 10/12/2024 12:49 PM Anesthesia Procedure Note - Elective intubation Patient Name: Martin Alves : 1965 Patient location: OR Procedure indications: airway protection Procedure diagnosis: Elective surgery Performed by: Anesthesiologist Carlos Akhtar MD Preanesthetic Checklist monitors and equipment checked. Patient's pre-procedure mental status: awake The patient was sedated prior to procedure. Current level of sedation: general anesthesia NPO status: > 8 hours Procedure Details Intubation route: oral Intubation method: direct laryngoscopy Mac 3 Number of attempts: 1 Patient status for intubation: paralyzed and RSI Patient position: supine Preoxygenation: BVM Tube size: 8.0 mm Tube: standard - cuffed and cuff inflated Cricoid pressure not applied or not required Cord visualization: Grade I Placement confirmation method: chest rise and ETCO2 monitor Breath sounds: equal bilaterally ETT to lip: 24 cm Dentition: same as baseline Complications: no complications us Viral Cowan ICE RINK ATTENDANT [facility] ANESTHESIA Final Result * CT Lumbar spine w/o contrast (10/11/2024 12:06 PM EDT) Anatomical Region Laterality Modality L-spine Computed Tomogra phy 10/11/2024 12:2 9 PM EDT Impressions 10/11/2024 12:50 PM EDT Extensive erosive changes at the L4 and L5 endplates, compatible with discitis osteomyelitis, with associated moderate height loss of the vertebral bodies. Vertebral body height loss has progressed since the MRI from September 07, 2024. Subtle sclerosis at the L5 superior endplate may be degenerative. The marrow signal changes noted in the dorsal S1 and S2 vertebral bodies on the recent prior MRI are not appreciated on CT. Extensive epidural phlegmon with severe spinal canal stenosis at L4-L5 is better characterized on the recent prior MRI. Prevertebral edema and phlegmon are noted at L4-L5. Evaluation for soft tissue abscess is limited without the use of intravenous contrast Narrative 10/11/2024 12:50 PM EDT CLINICAL INFORMATION: L4-L5 discitis ostial myelitis TECHNIQUE: Protocol: Routine - CT Lumbar Spine without. Dose modulation and/or iterative reconstruction was utilized to minimize dose. COMPARISON: Correlation is made with outside MRI of the lumbar spine dated October 09, 2024 and MRI of lumbar spine dated September 07, 2024. FINDINGS: Anatomy: For the purposes of this dictation and in keeping with numbering from prior reports, the L5-S1 disc space is denoted on series 4, image 111. Alignment: Lumbar lordosis is preserved. There is trace grade 1 stepwise retrolisthesis of L1 on L2, L2 on L3, L3 on L4, L4 on L5. Vertebrae: There are extensive erosive changes involving the L4 inferior endplate and L5 superior endplate with moderate height loss of the L4 and L5 vertebral bodies, probably not substantially changed since the most recent prior MRI, though with the height loss progressed since the MRI from September 07, 2024. Findings are compatible with discitis osteomyelitis as better characterized on the recent prior MRI. There is heterogeneity of the disc space with mixed fluid and hyperattenuating material, which again bulges into the spinal canal with severe spinal canal stenosis, better characterized on the recent prior MRI. Extensive epidural phlegmon is also better characterized on the recent prior MRI. There is severe bilateral foraminal stenosis, right more so than left at the L4-L5 level. The right L4-5 facet joint appears asymmetrically widened, probably related to joint effusion as seen on the prior MRI. There is severe bilateral foraminal stenosis at the L5-S1 level. There is subtle sclerosis at the posterior superior aspect of the S1 vertebral body, which may be degenerative in nature. The areas of marrow signal abnormality along the dorsal S1 and S2 vertebral bodies on the prior MRI are not appreciated on CT. No italo erosive changes are seen at the S1 or S2 levels. Soft Tissues: There is infiltration of the prevertebral soft tissues at the L4-L5 levels. Evaluation for soft tissue fluid collection is limited without the use of intravenous contrast. Disc Levels: T12-L1: No significant canal or foraminal stenosis. L1-L2: Mild disc bulge with osteophytic ridging and facet arthropathy. No significant spinal canal stenosis. Mild bilateral foraminal stenosis. L2-L3: Disc bulge and osteophytic ridging and bilateral facet arthropathy. There is mild spinal canal stenosis and mild bilateral foraminal stenosis L3-L4: Disc bulge with osteophytic ridging and facet arthropathy. Known epidural phlegmon is better seen on the prior MRI, with at least moderate spinal canal stenosis at this level. There is moderate left and mild right foraminal stenosis. L4-L5: Extensive changes related to discitis osteomyelitis as described above with severe spinal canal stenosis and severe bilateral foraminal stenosis. L5-S1: Severe disc height loss with disc bulge and osteophytic ridging and bilateral facet arthropathy. The known epidural phlegmon is better seen on the prior MRI. Mild to moderate spinal canal stenosis. There is severe bilateral foraminal stenosis. Spinal Canal Contents: Assessment is limited on CT. Known extensive epidural phlegmon is better seen on the prior MRI. Procedure Note Dyana Jones MD - 10/11/2024 CLINICAL INFORMATION: L4-L5 discitis ostial myelitis TECHNIQUE: Protocol: Routine - CT Lumbar Spine without. Dose modulation and/or iterative reconstruction was utilized tominimize dose. COMPARISON: Correlation is made with outside MRI of the lumbar spinedated October 09, 2024 and MRI of lumbar spine dated September 07, 2024. FINDINGS: Anatomy: For the purposes of this dictation and in keeping with numberingfrom prior reports, the L5-S1 disc space is denoted on series 4, . Alignment: Lumbar lordosis is preserved. There is trace grade 1 stepwiseretrolisthesis of L1 on L2, L2 on L3, L3 on L4, L4 on L5. Vertebrae: There are extensive erosive changes involving the L4 inferiorendplate and L5 superior endplate with moderate height loss of the L4 andL5 vertebral bodies, probably not substantially changed since the mostrecent prior MRI, though with the height loss progressed since the MRI from September 07, 2024. Findings arecompatible with discitis osteomyelitis as better characterized on therecent prior MRI. There is heterogeneity of the disc space with mixedfluid and hyperattenuating material, which again bulges into the spinal canal with severe spinal canal stenosis,better characterized on the recent prior MRI. Extensive epidural phlegmonis also better characterized on the recent prior MRI. There is severebilateral foraminal stenosis, right more so than left at the L4-L5 level. The right L4-5 facet joint appearsasymmetrically widened, probably related to joint effusion as seen on theprior MRI. There is severe bilateral foraminal stenosis at the L5-S6aumig. There is subtle sclerosis at the posterior superior aspect of the S1 vertebral body, which may bedegenerative in nature. The areas of marrow signal abnormality along thedorsal S1 and S2 vertebral bodies on the prior MRI are not appreciated onCT. No italo erosive changes are seen at the S1 or S2 levels. Soft Tissues: There is infiltration of the prevertebral soft tissues atthe L4-L5 levels. Evaluation for soft tissue fluid collection is limitedwithout the use of intravenous contrast. Disc Levels: T12-L1: No significant canal or foraminal stenosis. L1-L2: Mild disc bulge with osteophytic ridging and facet arthropathy. Nosignificant spinal canal stenosis. Mild bilateral foraminal stenosis. L2-L3: Disc bulge and osteophytic ridging and bilateral facet arthropathy.There is mild spinal canal stenosis and mild bilateral foraminalstenosis L3-L4: Disc bulge with osteophytic ridging and facet arthropathy. Knownepidural phlegmon is better seen on the prior MRI, with at least moderatespinal canal stenosis at this level. There is moderate left and mild rightforaminal stenosis. L4-L5: Extensive changes related to discitis osteomyelitis as describedabove with severe spinal canal stenosis and severe bilateral foraminalstenosis. L5-S1: Severe disc height loss with disc bulge and osteophytic ridging andbilateral facet arthropathy. The known epidural phlegmon is better seen onthe prior MRI. Mild to moderate spinal canal stenosis. There is severebilateral foraminal stenosis. Spinal Canal Contents: Assessment is limited on CT. Known extensiveepidural phlegmon is better seen on the prior MRI. IMPRESSION: Extensive erosive changes at the L4 and L5 endplates, compatible withdiscitis osteomyelitis, with associated moderate height loss of thevertebral bodies. Vertebral body height loss has progressed since the MRIfrom September 07, 2024. Subtle sclerosis at the L5 superior endplate may be degenerative. Themarrow signal changes noted in the dorsal S1 and S2 vertebral bodies onthe recent prior MRI are not appreciated on CT. Extensive epidural phlegmon with severe spinal canal stenosis at L4-L5 isbetter characterized on the recent prior MRI. Prevertebral edema and phlegmon are noted at L4-L5. Evaluation for softtissue abscess is limited without the use of intravenous contrast George Baig MD IMG CT ORDERABLES Final Result * MR Spine Archive for Reference Only (10/10/2024 6:41 PM EDT) Only the most recent of2 resultswithin the time period is included. Narrative [facility] - 10/10/2024 6:41 PM EDT This study has been auto finalized and does not contain a result. us File Room Provider IMG DIGITIZE FILMS Final Resu lt [facility] [phone] * CR Chest Archive for Reference only (10/10/2024 6:35 PM EDT) Narrative [facility] 10/10/2024 6:35 PM EDT This study has been auto finalized and does not contain a result. us File Room Provider IMG DIGITIZE FILMS Final Resu lt [facility] [phone] * IR PICC PLACEMENT W/O PUMP OR [...] Clinical: 58-year-old male with epidural abscess requiring terminal superintendent IV antibiotics. OPERATORS: Darci Celis M.D.; Yemi Hernandez PA-C MEDICATIONS: Lidocaine 1%, sub-Q CONTRAST: None COMPLICATIONS: No immediate The procedure checkout operator maintained sterile precautions, including hand hygiene, cap, mask, sterile gloves and gown. The patient was placed supine on the interventional table. The left arm was prepped and draped in the usual sterile fashion. The checkout operator followed all elements of maximal sterile [...] vein was obtained. Under fluoroscopic guidance, a 5.5-[place] peel-away sheath and guidewire were advanced. A 5-[place]izen [place] single lumen Power PICC measuring 50 centimeters [...] Clinical: 58-year-old male with epidural abscess requiring terminal superintendent IVantibiotics. OPERATORS: Darci Celis M.D.; Yemi Hernandez PA-C MEDICATIONS: Lidocaine 1%, sub-Q CONTRAST: None COMPLICATIONS: No immediate The procedure checkout operator maintained sterile precautions, including handhygiene, cap, mask, sterile gloves and gown. The patient was placed supineon the interventional table. The left arm was prepped and draped in theusual sterile fashion. The checkout operator followed all elements of maximal sterile [...] vein was obtained. Under fluoroscopic guidance, a 5.5-[place] peel-away sheath and guidewirewere advanced. A 5-[place] single lumen Power PICC measuring 50 centimeterswas [...] ENDOVASCULAR ORDERABLES Edited Result - Final * ECHOCARDIOGRAM TRANSESOPHAGEAL (09/11/2024 11:53 AM EDT) [...] inserted atraumatically into the esophagus by the visual and stock associate. With the patient in a supine position [...] PA-C CV ECHO ORDERABLES Final Result * Phosphorus (09/10/2024 6:26 AM EDT) Only the most recent of2 resultswithin the time period is included. Phosphorus 2.9 2.4 - 5.1 mg/dL 09/10/2024 7:39 AM EDT [facility] Blood Blood specimen / Unknown 09/10/2024 6:26 AM EDT 09/10/2024 7:09 AM EDT us Rubi Hsieh MD LAB BLOOD ORDERABLES Final Resu lt [facility] [address] [place] [address], [place] * ECHOCARDIOGRAM COMPREHENSIVE WITH CONTRAST (09/07/2024 [...] previous study for comparison in our system. us Rajeev Jimenez MD CV ECHO ORDERABLES Final Re sult * OSMOLALITY (09/07/2024 7:41 AM EDT) Osmolality, Serum/Plasma 295 257 - 297 mOsm/Kg 09/07/2024 3:27 PM EDT [facility] 09/07/2024 7:41 AM EDT 09/07/2024 8:36 AM EDT Rajeev Jimenez MD LAB BLOOD ORDERABLES Final Result [facility] [address] [place] [address], [place] * MRI Lumbar spine w w/o [...] of the spinal canal. Procedure Note Dyana Jnoes MD - 09/07/2024 CLINICAL INFORMATION: Rule out [...] body. There is involvement of the bilateral [id number] and pars and the right L4 pedicle, [...] telephoneon September 07, 2024 at 9:30 AM. Soy Pickard MD IMG MRI ORDERABLES Final Result * XR Knee [...] changes and suprapatellar joint effusion. us Soy Pickard MD IMG DIAGNOSTIC IMAGING ORDERABLE S Final Result * (ABNORMAL) Partial Thromboplastin Time (PTT) (09/06/2024 10:08 PM EDT) Anticoagulant NO ANTI COAGULANT MEDS 09/06/2024 9:52 PM EDT [facility] Partial Thromboplastin Time (PTT) 38(H) 26 - 37 seconds 09/06/2024 10:32 PM EDT [facility] Blood Blood specimen / Unknown 09/06/2024 10:08 PM EDT 09/06/2024 10:13 PM EDT us Soy Pickard MD LAB BLOOD ORDERABLES Final Resul t [facility] [address] [place] [address], from Last 3 Months Insurance UMR UMR Advance Directives * Full Code (Latest Code Status on File) Date Activated Date Inactivated Comments 10/29/2024 12:14 AM * Full Code Date Activated Date Inactivated Comments 10/12/2024 10:06 PM 10/28/2024 4:40 PM * Full Code Date Activated Date Inactivated Comments 10/09/2024 11:12 PM 10/12/2024 10:06 PM Question Answer Comments Decision Thoroughly Discussed with: Patient * Full Code Date Activated Date Inactivated Comments 09/06/2024 10:01 PM 10/09/2024 9:29 PM Care Teams Veneer Jointer Relationship Specialty Start Date End Date Sammie Estrella PA-C [address] [place] [id number] PCP - General Internal Medicine 11/20/24 Catherine Gallardo, RN [address] [address] Nurse Navigator Surgery, Neurosurgery 10/11/24 5
[2024-11-28 12:55] VITALS: BP 128/82
== END 2024-11-28 12:36 | disposition home or self-care (01) ==
LOC: HO.HMCH 11:19
DX: E78.00 Pure hypercholesterolemia, unspecified (principal); E11.9 Type 2 diabetes mellitus without complications; K74.60 Unspecified cirrhosis of liver; M46.20 Osteomyelitis of vertebra, site unspecified; Z13.9 Encounter for screening, unspecified

== ENCOUNTER → 2024-11-28 11:18 | Outpatient (BNVA) | payer OTHER, SELFPAY | DX: E11.40 Type 2 diabetes mellitus with diabetic neuropathy, unspecified (principal); E78.00 Pure hypercholesterolemia, unspecified; K74.60 Unspecified cirrhosis of liver; M46.20 Osteomyelitis of vertebra, site unspecified | CPT/HCPCS: 83036; 96127 ==

== ENCOUNTER 2024-11-29 14:24 | Outpatient (AMB) | payer OTHER, SELFPAY ==
--- NOTE | 2024-11-29 14:42 | MHC.OFFVIS ---
Vital Signs 11/29/24 14:58 Height 6 ft Weight 277 lb 12.519 oz BMI 37.7 BP 129/60 Blood Pressure Location Rt brachial Position Sitting Pulse 85 Intake Visit Reasons: Cirrhosis, Jaundice, RIVERA Intake Note: Martin presents in the office as a new patient for Cirrhosis, Jaundice and RIVERA. CC: States that he is not having any GI concerns. He states he was septic and he was sent over to [facility]. There was a neurosurgeon that removed oesteomilitis and abcessses. Abattoir Supervisor Required: No Allergies No Known Allergies Allergy (Verified 11/29/24 14:59) HPI Comments Details: 58 y.o M with PMH of known liver disease, non-hodgkins lymphoma, recent prolonged hospitalization for epidural abscess which was managed at [facility] in [place], who is here to establish care with GI for cirrhosis. Pt himself reports no abd pain, N,V. No change in abd girth. First found out about fatty liver almost 15 years ago. This year since June 2024 he has been trying to maage epidural abscess and lumbar osteo. Has had at least 4 [address] - [facility], [facility], [facility] and [facility]. While he was in hospitalized in [facility] he did have 1 L of paracentesis done just one time. He also had egd/colo done last month in [facility] for anemia - unable to recall findings. He remains on IV Abx through PICC line. No hx of etOH use. No hx of recreational drug use. Does report significant obesity before - used to weigh around 400 lbs. [facility] Medical History Stomach ulcer Stage Lola non-Hodgkin lymphoma Neuropathy Erectile dysfunction Diabetes mellitus Thrombocytopenia Low vitamin D level Hypercholesterolemia Gait instability Cirrhosis Jaundice RIVERA (nonalcoholic steatohepatitis) Surgical History (Updated 11/29/24 @ 14:59 by FACUNDO Hua) Hx of colonoscopy History of esophagogastroduodenoscopy (EGD) History of hernia repair History of shoulder surgery Social History Household Members: Spouse Household Members Other:: 2 Housing: House Are you a primary geriatric personal care aide to a significant other at home: No Do you presently have visiting nurse or other home services: Yes Alcohol intake: never Patient Tobacco Use Status: Never used Tobacco Tobacco use type: Cigarette e-Cigarette/Vaping Use: Never Used Second Hand Smoke Exposure: No Substance Use Type: Marijuana Advance Directives Date on File: 09/04/24 service: No Current occupational status: employed 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6 - Thrombocytopenia, unspecified Category: Medical Plan Pt with new dx of cirrhosis during the hospitalization for epidural abscess. Likely from fatty liver disease. However will need eval for other causes of chronic liver disease. Reviewed that possibly had advanced fibrosis with acute onset portal hypertensive complications 2/2 sepsis and prolonged illness. However, a more accurate assessment of underlying liver function to be done once pt has fully recoverered. Pt still on IV Abx and has follow up in [place] next week. Plan: - Labs as below - Elastography - Records from [facility] for egd/colo follow up 2 months Orders: Orders Comprehensive Met. Panel Today K74.60 - Unspecified cirrhosis of liver Alpha Fetoprotein Today K74.60 - Unspecified cirrhosis of liver Hemoglobin A1c Today K74.60 - Unspecified cirrhosis of liver Hepatitis A IgG Today K74.60 - Unspecified cirrhosis of liver Hepatitis B Core Antibody Today K74.60 - Unspecified cirrhosis of liver Hepatitis B Surface Antigen Today K74.60 - Unspecified cirrhosis of liver Immunoglobulin A Today K74.60 - Unspecified cirrhosis of liver Liver Kidney Microsomal Ab Today K74.60 - Unspecified cirrhosis of liver Phosphatidylethanol, Blood Today K74.60 - Unspecified cirrhosis of liver Prothrombin Time INR Today K74.60 - Unspecified cirrhosis of liver Complete Blood Count no Diff Today K74.60 - Unspecified cirrhosis of liver Alpha 1 Anti-trypsin Today K74.60 - Unspecified cirrhosis of liver ROSEY Reflex Titer and Pattern Today K74.60 - Unspecified cirrhosis of liver Ferritin Today K74.60 - Unspecified cirrhosis of liver Hepatitis B Surface Antibody Today K74.60 - Unspecified cirrhosis of liver Hepatitis C Antibody Today K74.60 - Unspecified cirrhosis of liver Hepatitis C Viral Load Today B18.2 - Chronic viral hepatitis C, K74.60 - Unspecified cirrhosis of liver HIV Ab/Ag Today K74.60 - Unspecified cirrhosis of liver IRON PROFILE Today K74.60 - Unspecified cirrhosis of liver Mitochondrial Antibody Today K74.60 - Unspecified cirrhosis of liver Smooth Muscle Antibody Today K74.60 - Unspecified cirrhosis of liver Transglutaminase IgA Today K74.60 - Unspecified cirrhosis of liver TSH reflex Free T4 Today K74.60 - Unspecified cirrhosis of liver US abdomen comp w elastography Today K74.60 - Unspecified cirrhosis of liver Coding Level of Care Code New Pt Level 5 (88542) Complex EM visit Add On G2211 Diagnoses Cirrhosis K74.60 Thrombocytopenia D69.6
[2024-11-29 14:58] VITALS: BP 129/60; PULSE 85; BMI 37.7
--- OUTSIDE RECORDS SUMMARY | 2024-11-29 16:43 | XMS_ITS | Encounter Summary ---
Author Organization [facility] Address [address] [place] [address] Phone Care Team Providers Care Canceling Machine Operator Name Role Phone Unavailable Primary Care Provider Unavailabl e Encounter Details Date Type Department Care Team (Late st Contact Info) Description 11/21/2024 Results Follow-Up [facility] [address] [place] [address] Yolanda Doll MD [address] [place] [address] Lab Scan Social History Tobacco [...] 11/22/2024 12:47 PM EDT [facility] [place] [facility] * [...] PM EDT Follow Up [facility] [address] [place], [place] [id number] Yolanda Doll MD [address] [place] [phone] documented as of this encounter Visit Diagnoses Not on filedocumented in this encounter
--- OUTSIDE RECORDS SUMMARY | 2024-11-29 16:43 | XMS_ITS | Encounter Summary ---
Author Organization [facility] Address [address] [place] [address] Phone Care Team Providers Care Range Operator Name Role Phone Unavailable Primary Care Provider Unavailabl e Encounter Details Date Type Department Care Team (Late st Contact Info) Description 10/03/2024 Scanned Document [facility] [address] [place], [place] [address] Yolanda Doll MD [address] [place] [address] Social History Tobacco Use Types [...] PM EDT Follow Up [facility] [address] [place], [place] [address] Yolanda Doll MD [address] [place] [address] documented as of this encounter Procedures Procedure Name Priority Date/Time Associated Diagnosis Comments LAB SCAN Routine 10/02/2024 10:53 AM EDT documented in this encounter Results * Lab Scan (10/02/2024 10:53 AM EDT) Yolanda Doll MD LAB BLOOD ORDERABLES Liliam l Result documented in this encounter Visit Diagnoses Not on filedocumented in this encounter
--- OUTSIDE RECORDS SUMMARY | 2024-11-29 16:43 | XMS_ITS | Encounter Summary ---
Author Organization [facility] Address [address] [place] [address] Phone Care Team Providers Care Usability Architect Name Role Phone Unavailable Primary Care Provider Unavailabl e Encounter Details Date Type Department Care Team (Late st Contact Info) Description 10/19/2024 Scanned Document [facility] [address] [place], [place] [address] Yolanda Doll MD [address] [place] [address] Social History Tobacco Use Types [...] PM EDT Follow Up [facility] [address] [place], [place] [address] Yolanda Doll MD [address] [place] [address] documented as of this encounter Visit Diagnoses Not on filedocumented in this encounter
--- OUTSIDE RECORDS SUMMARY | 2024-11-29 16:43 | XMS_ITS | Clinical Summary ---
Author Organization [facility] Address [address] [place] [address] Phone Care Team Providers Care County Program Technician Name Role Phone Gerardo Nice MD Primary Care Provider [phone] Allergies No known active allergies Medications cyclobenzaprine [...] 09/06/2024 Other cirrhosis of liver (CMS/HCC V24, [facility]/HCC V 28) 09/06/2024 Type 2 diabetes mellitus wit hout complication, without long-term current use of insulin (CMS/HCC V24, [facility]/HCC V28) 09/06/2024 Sepsis (CMS/HCC V24, [facility]/HCC V28) 07/20/2024 Large cell lymphoma (CMS/HCC V24, [facility]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 10/2008 Morbid obesity (CMS/HCC V24, [facility] V28) 2008 Elevated blood pressure read ing without diagnosis of hypertension 08/24/2008 Surgical History Surgery Date Site/Laterality Comments ROTATOR CUFF REPAIR PROCEDURE: HISTORICAL ROTATOR CUFF REPAIR; COMMENT: bilateral COLONOSCOPY 09/2009 PROCEDURE: [place] COLONOSCOPY FLX DX W/COLLJ SPEC WHEN PFRMD; COMMENT: Up to cecum, good preparation, 2 small polyps removed:tubular adenoma/hyperplastic, diverticulosis Medical History Medical History Date Comments Morbid obesity (CMS/HCC V24, [facility]/HCC V28) 08/24/2008 DX:Morbid obesity (HCC) 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 V24, CMS/HCC V28) DX: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..] reflex to confirmation (07/23/2024 6:55 AM EDT) [facility] Hepatitis B Surface Ag Negative Negative LAB CHEMISTRY METHOD 07/24/2024 11:14 PM EDT [facility] Hepatitis A Antibody IgM Negative Negative LAB CHEMISTRY METHOD 07/24/2024 11:14 PM EDT [facility] Hep B Core IgM Negative Negative LAB CHEMISTRY METHOD 07/24/2024 11:14 PM EDT [facility] Hepatitis C Antibody Negative Negative LAB CHEMISTRY METHOD 07/24/2024 11:14 PM EDT [facility] Blood Venous blood specimen / Unknown Venipuncture / Unknown 07/23/2024 6:55 AM EDT 07/23/2024 7:02 AM EDT Ivan Lewis MD LAB BLOOD ORDERABLE S Final Result [facility] [address] [place] [address], [place] [phone] * (ABNORMAL) Hemoglobin A1c (07/20/2024 10:19 AM EDT) [facility] Hemoglobin A1C 8.9(H) <6.5 % LAB CHEMISTRY METHOD 07/21/2024 10:49 AM EDT [facility] Mean Bld Glu Estim. 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
--- OUTSIDE RECORDS SUMMARY | 2024-11-29 16:43 | XMS_ITS | Encounter Summary ---
Author Organization [facility] [place] [address] Care Team Providers Care Desktop Manager Name Role Phone Gerardo Nice MD Primary Care Provider [phone] Encounter Details Date Type Department Care Team (Late st Contact Info) Description 08/03/2024 Lab Requisition [facility] - Main Lab [address] [facility] [place] [address] Gerardo Nice MD [address] [facility] [address], [address] Unspecified infectious disease Social History Tobacco [...] mmol/L LAB CHEMISTRY METHOD 08/03/2024 10:45 AM [facility] Potassium 4.8 3.5 - 5.5 mmol/L LAB CHEMISTRY METHOD 08/03/2024 10:45 AM [facility] Comment:Hemolysis present Chloride 94(L) 96 - 110 mmol/L LAB CHEMISTRY METHOD 08/03/2024 10:45 AM [facility] CO2 27 21 - 32 mmol/L LAB CHEMISTRY METHOD 08/03/2024 10:45 AM [facility] Anion Gap 8 3 - 11 LAB CHEMISTRY METHOD 08/03/2024 10:45 AM [facility] Glucose 163(H) 70 - 100 mg/dL LAB CHEMISTRY METHOD 08/03/2024 10:45 AM [facility] BUN 14 5 - 25 mg/dL LAB CHEMISTRY METHOD 08/03/2024 10:45 AM [facility] Creatinine 0.68(L) 0.70 - 1.30 mg/dL LAB CHEMISTRY METHOD 08/03/2024 10:45 AM [facility] eGFR 106 >=60 mL/min/1. 73m2 LAB CHEMISTRY METHOD 08/03/2024 10:45 AM [facility] Comment:Calculation based on the Chronic Kidney Disease Epidemiology Collaboration (CKD-EPI) equation refit without adjustment for race. BUN/Creatinine Ratio 20.6 LAB CHEMISTRY METHOD 08/03/2024 10:45 AM [facility] Calcium 8.1(L) 8.5 - 10.5 mg/dL LAB CHEMISTRY METHOD 08/03/2024 10:[address] [facility] Blood Venous blood specimen / Unknown Venipuncture / Unknown 08/03/2024 5:08 AM EDT 08/03/2024 9:30 AM EDT us Gerardo Nice MD LAB BLOOD ORDERABLES Final Resul t [facility] [address] [place] [address], documented in this encounter Visit Diagnoses Diagnosis Unspecified infectious disease documented in this encounter Care Teams Desktop Manager Relationship Specialty Start Date End Date Gerardo Nice MD [address] [place] [address], [phone] PCP - General Family Medicine 07/29/24 documented as of this encounter
--- OUTSIDE RECORDS SUMMARY | 2024-11-29 16:43 | XMS_ITS | Encounter Summary ---
Author Organization [facility] [place] [address] Care Team Providers Care Health Clinician Name Role Phone Gerardo Nice MD Primary Care Provider [phone] Encounter Details Date Type Department Care Team (Late st Contact Info) Description 08/21/2024 Lab Requisition [facility] - Main Lab 299 Replaced By [facility] [place] [address] Gerardo Nice MD 38 [facility] [address], [address] Other specified sepsis (CMS/HCC V24, CMS/HCC [...] 08/22/2024 6:17 AM EDT Other specified sepsis ([facility] V24, [facility] V28) CBC AND DIFFERENTIAL Routine 08/22/2024 6:17 AM EDT Other specified sepsis ([facility] V24, [facility] V28) COMPREHENSIVE METABOLIC PANEL Routine 08/22/2024 6:17 AM EDT Other specified sepsis ([facility] V24, [facility] V28) documented in this encounter Results * (ABNORMAL) CBC auto differential (08/22/2024 6:17 AM EDT) WBC 5.9 4.8 - 10.8 K/mcL LAB HEMETOLOGY METHOD 08/22/2024 11:12 AM [facility] RBC 3.10(L) 4.50 - 5.50 M/mcL LAB HEMETOLOGY METHOD 08/22/2024 11:12 AM [facility] Hemoglobin 9.8(L) 13.5 - 17.5 g/dL LAB HEMETOLOGY METHOD 08/22/2024 11:12 AM [facility] Hematocrit 30.1(L) 42.0 - 54.0 % LAB HEMETOLOGY METHOD 08/22/2024 11:12 AM [facility] MCV 96.2 79.0 - 98.0 FL LAB HEMETOLOGY METHOD 08/22/2024 11:12 AM [facility] MCH 31.3 27.0 - 32.0 pcg LAB HEMETOLOGY METHOD 08/22/2024 11:12 AM [facility] MCHC 32.6 32.0 - 37.0 g/dL LAB HEMETOLOGY METHOD 08/22/2024 11:12 AM [facility] RDW 14.2 11.0 - 15.0 % LAB HEMETOLOGY METHOD 08/22/2024 11:12 AM [facility] Platelets 213 130 - 400 K/mcL LAB HEMETOLOGY METHOD 08/22/2024 11:12 AM [facility] MPV 10.6 7.0 - 11.0 FL LAB HEMETOLOGY METHOD 08/22/2024 11:12 AM [facility] NRBC 0.0 <1.0 % LAB HEMETOLOGY METHOD 08/22/2024 11:12 AM [facility] NRBC Absolute 0.00 <0.10 K/mcL LAB HEMETOLOGY METHOD 08/22/2024 11:12 AM [facility] Neutrophils Relative 64.0 % LAB HEMETOLOGY METHOD 08/22/2024 11:12 AM [facility] Lymphocytes Relative 21.1 % LAB HEMETOLOGY METHOD 08/22/2024 11:12 AM [facility] Monocytes Relative 11.7 % LAB HEMETOLOGY METHOD 08/22/2024 11:12 AM [facility] Eosinophils Relative 2.2 % LAB HEMETOLOGY METHOD 08/22/2024 11:12 AM [facility] Basophils Relative 0.7 % LAB HEMETOLOGY METHOD 08/22/2024 11:12 AM [facility] Immature Granulocytes Relative 0.3 % LAB HEMETOLOGY METHOD 08/22/2024 11:12 AM [facility] Neutrophils Absolute 3.79 1.50 - 7.00 K/mcL LAB HEMETOLOGY METHOD 08/22/2024 11:12 AM [facility] Lymphocytes Absolute 1.25 1.00 - 5.00 K/mcL LAB HEMETOLOGY METHOD 08/22/2024 11:12 AM EDT [facility] Monocytes Absolute 0.69 0.20 - 1.00 K/mcL LAB HEMETOLOGY METHOD 08/22/2024 11:12 AM EDT [facility] Eosinophils Absolute 0.13 0.00 - 0.50 K/mcL LAB HEMETOLOGY METHOD 08/22/2024 11:12 AM EDT [facility] Basophils Absolute 0.04 0.00 - 0.20 K/[facility] LAB HEMETOLOGY METHOD 08/22/2024 11:12 AM EDT [facility] Immature Granulocytes Absolute 0.02 0.00 - 0.03 K/mcL LAB HEMETOLOGY METHOD 08/22/2024 11:12 AM T [facility] Blood Venous blood specimen / Unknown Venipuncture / Unknown 08/22/2024 6:17 AM EDT 08/22/2024 10:16 AM EDT us Gerardo Nice MD LAB BLOOD ORDERABLES Final Resul t [facility] [address] [place] [address], * (ABNORMAL) Comprehensive metabolic panel (08/22/2024 6:17 AM EDT) Sodium 133 133 - 145 mmol/L LAB CHEMISTRY METHOD 08/22/2024 12:11 PM T [facility] Potassium 3.6 3.5 - 5.5 mmol/L LAB CHEMISTRY METHOD 08/22/2024 12:11 PM [facility] Chloride 93(L) 96 - 110 mmol/L LAB CHEMISTRY METHOD 08/22/2024 12:11 PM [facility] CO2 30 21 - 32 mmol/L LAB CHEMISTRY METHOD 08/22/2024 12:11 PM [facility] Anion Gap 10 3 - 11 LAB CHEMISTRY METHOD 08/22/2024 12:11 PM [facility] Glucose 222(H) 70 - 100 mg/dL LAB CHEMISTRY METHOD 08/22/2024 12:11 PM [facility] BUN 11 5 - 25 mg/dL LAB CHEMISTRY METHOD 08/22/2024 12:11 PM [facility] Creatinine 0.65(L) 0.70 - 1.30 mg/dL LAB CHEMISTRY METHOD 08/22/2024 12:11 PM [facility] eGFR 108 >=60 mL/min/1. 73m2 LAB CHEMISTRY METHOD 08/22/2024 12:11 PM [facility] Comment:Calculation based on the Chronic Kidney Disease Epidemiology Collaboration (CKD-EPI) equation refit without adjustment for race. BUN/Creatinine Ratio 16.9 LAB CHEMISTRY METHOD 08/22/2024 12:11 PM [facility] Calcium 8.3(L) 8.5 - 10.5 mg/dL LAB CHEMISTRY METHOD 08/22/2024 12:11 PM [facility] AST (SGOT) 32 10 - 42 unit/L LAB CHEMISTRY METHOD 08/22/2024 12:11 PM [facility] ALT (SGPT) 17 10 - 60 unit/L LAB CHEMISTRY METHOD 08/22/2024 12:11 PM [facility] Alkaline Phosphatase 88 42 - 121 unit/L LAB CHEMISTRY METHOD 08/22/2024 12:11 PM [facility] Total Protein 6.6 6.0 - 8.0 g/dL LAB CHEMISTRY METHOD 08/22/2024 12:11 PM [facility] Albumin 1.8(L) 3.2 - 5.0 g/dL LAB CHEMISTRY METHOD 08/22/2024 12:11 PM [facility] Total Bilirubin 1.7(H) 0.0 - 1.4 mg/dL LAB CHEMISTRY METHOD 08/22/2024 12:11 PM EDT [facility] Blood Venous blood specimen / Unknown Venipuncture / Unknown 08/22/2024 6:17 AM EDT 08/22/2024 10:16 AM EDT us Gerardo Nice MD LAB BLOOD ORDERABLES Final Resul t [facility] [address] [place] [address], documented in this encounter Visit Diagnoses Diagnosis Other specified sepsis (CMS/HCC V24, CMS/HCC V28) documented in this encounter Care Teams Health Clinician Relationship Specialty Start Date End Date Gerardo Nice MD [address] [place] [address], [phone] PCP - General Family Medicine 07/29/24 documented as of this encounter
--- OUTSIDE RECORDS SUMMARY | 2024-11-29 16:43 | XMS_ITS | Encounter Summary ---
Author Organization [facility] [place] [address] Care Team Providers Care Child Support Agent Name Role Phone Gerardo Nice MD Primary Care Provider [phone] Encounter Details Date Type Department Care Team (Late st Contact Info) Description 07/31/2024 Lab Requisition [facility] - Main Lab [address] [place] [address] Gerardo Nice MD 38 [facility] [address] [place], [address] Other specified sepsis (CMS/HCC V24, CMS/HCC [...] 07/31/2024 6:08 AM EDT Other specified sepsis ([facility], [facility] V28) CBC AND DIFFERENTIAL Routine 07/31/2024 6:08 AM EDT Other specified sepsis ([facility] V24, [facility] V28) COMPREHENSIVE METABOLIC PANEL Routine 07/31/2024 6:08 AM EDT Other specified sepsis ([facility] V[facility], [facility] V28) documented in this encounter Results * (ABNORMAL) CBC auto differential (07/31/2024 6:08 AM EDT) WBC 9.4 4.8 - 10.8 K/mcL LAB HEMETOLOGY METHOD 07/31/2024 8:37 AM [facility] RBC 3.20(L) 4.50 - 5.50 M/mcL LAB HEMETOLOGY METHOD 07/31/2024 8:37 AM [facility] Hemoglobin 9.7(L) 13.5 - 17.5 g/dL LAB HEMETOLOGY METHOD 07/31/2024 8:37 AM [facility] Hematocrit 30.1(L) 42.0 - 54.0 % LAB HEMETOLOGY METHOD 07/31/2024 8:37 AM [facility] MCV 94.7 79.0 - 98.0 FL LAB HEMETOLOGY METHOD 07/31/2024 8:37 AM [facility] MCH 30.5 27.0 - 32.0 pcg LAB HEMETOLOGY METHOD 07/31/2024 8:37 AM [facility] MCHC 32.2 32.0 - 37.0 g/dL LAB HEMETOLOGY METHOD 07/31/2024 8:37 AM [facility] RDW 15.6(H) 11.0 - 15.0 % LAB HEMETOLOGY METHOD 07/31/2024 8:37 AM [facility] Platelets 214 130 - 400 K/mcL LAB HEMETOLOGY METHOD 07/31/2024 8:37 AM [facility] MPV 10.9 7.0 - 11.0 FL LAB HEMETOLOGY METHOD 07/31/2024 8:37 AM [facility] NRBC 0.0 <1.0 % LAB HEMETOLOGY METHOD 07/31/2024 8:37 AM [facility] NRBC Absolute 0.00 <0.10 K/mcL LAB HEMETOLOGY METHOD 07/31/2024 8:37 AM [facility] Neutrophils Relative 73.2 % LAB HEMETOLOGY METHOD 07/31/2024 8:37 AM [facility] Lymphocytes Relative 15.2 % LAB HEMETOLOGY METHOD 07/31/2024 8:37 AM [facility] Monocytes Relative 9.8 % LAB HEMETOLOGY METHOD 07/31/2024 8:37 AM [facility] Eosinophils Relative 0.8 % LAB HEMETOLOGY METHOD 07/31/2024 8:37 AM [facility] Basophils Relative 0.6 % LAB HEMETOLOGY METHOD 07/31/2024 8:37 AM [facility] Immature Granulocytes Relative 0.4 % LAB HEMETOLOGY METHOD 07/31/2024 8:37 AM [facility] Neutrophils Absolute 6.90 1.50 - 7.00 K/mcL LAB HEMETOLOGY METHOD 07/31/2024 8:37 AM [facility] Lymphocytes Absolute 1.43 1.00 - 5.00 K/mcL LAB HEMETOLOGY METHOD 07/31/2024 8:37 AM EDT [facility] Monocytes Absolute 0.92 0.20 - 1.00 K/[facility] LAB HEMETOLOGY METHOD 07/31/2024 8:37 AM EDT [facility] Eosinophils Absolute 0.08 0.00 - 0.50 K/[facility] LAB HEMETOLOGY METHOD 07/31/2024 8:37 AM EDT [facility] Basophils Absolute 0.06 0.00 - 0.20 K/[facility] LAB HEMETOLOGY METHOD 07/31/2024 8:37 AM EDT [facility] Immature Granulocytes Absolute 0.04(H) 0.00 - 0.03 K/[facility] LAB HEMETOLOGY METHOD 07/31/2024 8:37 AM EDT [facility] Blood Venous blood specimen / Unknown Venipuncture / Unknown 07/31/2024 6:08 AM EDT 07/31/2024 8:14 AM EDT us Gerardo Nice MD LAB BLOOD ORDERABLES Final Resul t [facility] [address] [place] [address], * (ABNORMAL) Comprehensive metabolic panel (07/31/2024 6:08 AM EDT) Sodium 132(L) 133 - 145 mmol/L LAB CHEMISTRY METHOD 07/31/2024 9:15 AM EDT [facility] Potassium 4.3 3.5 - 5.5 mmol/L LAB CHEMISTRY METHOD 07/31/2024 9:15 AM EDT [facility] Chloride 95(L) 96 - 110 mmol/L LAB CHEMISTRY METHOD 07/31/2024 9:15 AM EDT [facility] CO2 29 21 - 32 mmol/L LAB CHEMISTRY METHOD 07/31/2024 9:15 AM EDT [facility] Anion Gap 8 3 - 11 LAB CHEMISTRY METHOD 07/31/2024 9:15 AM [facility] Glucose 221(H) 70 - 100 mg/dL LAB CHEMISTRY METHOD 07/31/2024 9:15 AM [facility] BUN 13 5 - 25 mg/dL LAB CHEMISTRY METHOD 07/31/2024 9:15 AM [facility] Creatinine 0.54(L) 0.70 - 1.30 mg/dL LAB CHEMISTRY METHOD 07/31/2024 9:15 AM [facility] eGFR 114 >=60 mL/min/1. 73m2 LAB CHEMISTRY METHOD 07/31/2024 9:15 AM [facility] Comment:Calculation based on the Chronic Kidney Disease Epidemiology Collaboration (CKD-EPI) equation refit without adjustment for race. BUN/Creatinine Ratio 24.1 LAB CHEMISTRY METHOD 07/31/2024 9:15 AM [facility] Calcium 7.7(L) 8.5 - 10.5 mg/dL LAB CHEMISTRY METHOD 07/31/2024 9:15 AM [facility] AST (SGOT) 46(H) 10 - 42 unit/L LAB CHEMISTRY METHOD 07/31/2024 9:15 AM [facility] ALT (SGPT) 27 10 - 60 unit/L LAB CHEMISTRY METHOD 07/31/2024 9:15 AM [facility] Alkaline Phosphatase 91 42 - 121 unit/L LAB CHEMISTRY METHOD 07/31/2024 9:15 AM [facility] Total Protein 5.7(L) 6.0 - 8.0 g/dL LAB CHEMISTRY METHOD 07/31/2024 9:15 AM [facility] Albumin 1.5(L) 3.2 - 5.0 g/dL LAB CHEMISTRY METHOD 07/31/2024 9:15 AM [facility] Total Bilirubin 4.7(H) 0.0 - 1.4 mg/dL LAB CHEMISTRY METHOD 07/31/2024 9:15 AM EDT [facility] Blood Venous blood specimen / Unknown Venipuncture / Unknown 07/31/2024 6:08 AM EDT 07/31/2024 8:14 AM EDT us Gerardo Nice MD LAB BLOOD ORDERABLES Final Resul t [facility] [address] [place] [address], documented in this encounter Visit Diagnoses Diagnosis Other specified sepsis (CMS/HCC V24, CMS/HCC V28) documented in this encounter Care Teams Child Support Agent Relationship Specialty Start Date End Date Gerardo Nice MD [address] [place] [address], [phone] PCP - General Family Medicine 07/29/24 documented as of this encounter
--- OUTSIDE RECORDS SUMMARY | 2024-11-29 16:43 | XMS_ITS | Encounter Summary ---
Author Organization [facility] Address [address] [place] [address] Phone Care Team Providers Care Refining Equipment Operator Name Role Phone Unavailable Primary Care Provider Unavailabl e Encounter Details Date Type Department Care Team (Late st Contact Info) Description 10/11/2024 Scanned Document [facility] [address] [place], [place] [address] Yolanda Doll MD [address] [place] [address] Social History Tobacco Use Types [...] PM EDT Follow Up [facility] [address] [place], [place] [address] Yolanda Doll MD [address] [place] [address] documented as of this encounter Visit Diagnoses Not on filedocumented in this encounter
--- OUTSIDE RECORDS SUMMARY | 2024-11-29 16:43 | XMS_ITS | Clinical Summary ---
Author Organization [facility] [address] Address [address] [place] [address] Care Team Providers Care Lead Housekeeper Name Role Phone Unavailable Primary Care Provider Unavailabl e Encounters Date Type Department Care Team Description 11/29/2024 Scanned Document [facility] [address] [place] [address] Yolanda Doll MD 11/21/2024 Results Follow-Up [facility] [address] [place] [address] Yolanda Doll MD Lab Scan 11/21/2024 Telephone [facility] [address] [place] [address] Wen Mohr, TIMOTHY Other 11/21/2024 Scanned Document [facility] [address] [place] [address] Yolanda Doll MD 11/15/2024 Results Follow-Up [facility] [address] [place] [address] Yolanda Doll MD Lab Scan 11/15/2024 Scanned Document [facility] [address] [place] [address] Yolanda Doll MD 10/19/2024 Scanned Document [facility] [address] [place] [address] Yolanda Doll MD 10/18/2024 Scanned Document [facility] [address] [place] [address] Yolanda Doll MD 10/11/2024 Scanned Document [facility] [address] [place] [address] Yolanda Doll MD 10/03/2024 Scanned Document [facility] [address] [place] [address] Yolanda Doll MD 09/07/2024 Scanned Document [facility] [address] [place] [address] Yolanda Doll MD from Last 3 Months [...] PM EDT Follow Up [facility] [address] [place] [address] Yolanda Doll MD [address] [place] [phone] Health Maintenance Due Date Last Done Comments [...] Date/Time Associated Diagnosis Comments LAB SCAN Routine 11/29/2024 9:46 AM EDT LAB SCAN Routine 11/20/2024 1:21 PM EDT LAB SCAN Routine 11/15/2024 9:19 AM EDT LAB SCAN Routine 10/02/2024 10:53 AM EDT from Last 3 Months Results * Lab Scan (11/29/2024 9:46 AM EDT) Only the most recent of4 resultswithin the time period is included. Yolanda Doll MD LAB BLOOD ORDERABLES Liliam l Result from Last 3 Months Insurance
--- OUTSIDE RECORDS SUMMARY | 2024-11-29 16:43 | XMS_ITS | Encounter Summary ---
Author Organization [facility] [place] [address] Care Team Providers Care Hospitalist Nocturnist Physician Name Role Phone Gerardo Nice MD Primary Care Provider [phone] Encounter Details Date Type Department Care Team (Late st Contact Info) Description 08/10/[address] [facility] - Main Lab [address] [facility] [address] [place] [address] Gerardo Nice MD 38 [facility] [address] [place], [address] Other specified sepsis (CMS/HCC V24, CMS/HCC [...] 08/10/2024 5:21 AM EDT Other specified sepsis ([facility] V24, [facility] V28) Type 2 diabetes mellitus without complications ([facility] V24, [facility] V28) BASIC METABOLIC PANEL Routine 08/10/2024 5:21 AM EDT Other specified sepsis ([facility] V24, [facility] V28) Type 2 diabetes mellitus without complications ([facility] V24, [facility] V28) documented in this encounter Results * (ABNORMAL) Basic metabolic panel (08/10/2024 5:21 AM EDT) Sodium 135 133 - 145 mmol/L LAB CHEMISTRY METHOD 08/10/2024 10:40 AM [facility] Potassium 4.2 3.5 - 5.5 mmol/L LAB CHEMISTRY METHOD 08/10/2024 10:40 AM [facility] Chloride 99 96 - 110 mmol/L LAB CHEMISTRY METHOD 08/10/2024 10:40 AM [facility] CO2 28 21 - 32 mmol/L LAB CHEMISTRY METHOD 08/10/2024 10:40 AM [facility] Anion Gap 8 3 - 11 LAB CHEMISTRY METHOD 08/10/2024 10:40 AM [facility] Glucose 175(H) 70 - 100 mg/dL LAB CHEMISTRY METHOD 08/10/2024 10:40 AM [facility] BUN 9 5 - 25 mg/dL LAB CHEMISTRY METHOD 08/10/2024 10:40 AM [facility] Creatinine 0.48(L) 0.70 - 1.30 mg/dL LAB CHEMISTRY METHOD 08/10/2024 10:40 AM EDT [facility] eGFR 118 >=60 mL/min/1. 73m2 LAB CHEMISTRY METHOD 08/10/2024 10:40 AM EDT [facility] Comment:Calculation based on the Chronic Kidney Disease Epidemiology Collaboration (CKD-EPI) equation refit without adjustment for race. BUN/Creatinine Ratio 18.8 LAB CHEMISTRY METHOD 08/10/2024 10:40 AM EDT [facility] Calcium 8.3(L) 8.5 - 10.5 mg/dL LAB CHEMISTRY METHOD 08/10/2024 10:40 AM EDT [facility] Blood Venous blood specimen / Unknown Venipuncture / Unknown 08/10/2024 5:21 AM EDT 08/10/2024 9:44 AM EDT us Gerardo Nice MD LAB BLOOD ORDERABLES Final Resul t [facility] [address] [place] [address], [place] [phone] * (ABNORMAL) Complete blood count (08/10/2024 5:21 AM EDT) WBC 6.0 4.8 - 10.8 K/mcL LAB HEMETOLOGY METHOD 08/10/2024 10:25 AM EDT [facility] RBC 2.90(L) 4.50 - 5.50 M/mcL LAB HEMETOLOGY METHOD 08/10/2024 10:25 AM EDT [facility] Hemoglobin 9.1(L) 13.5 - 17.5 g/dL LAB HEMETOLOGY METHOD 08/10/2024 10:25 AM EDT [facility] Hematocrit 28.5(L) 42.0 - 54.0 % LAB HEMETOLOGY METHOD 08/10/2024 10:25 AM EDT [facility] MCV 96.9 79.0 - 98.0 FL LAB HEMETOLOGY METHOD 08/10/2024 10:25 AM EDT [facility] MCH 31.0 27.0 - 32.0 pcg LAB HEMETOLOGY METHOD 08/10/2024 10:25 AM EDT [facility] MCHC 31.9(L) 32.0 - 37.0 g/dL LAB HEMETOLOGY METHOD 08/10/2024 10:25 AM EDT [facility] RDW 14.9 11.0 - 15.0 % LAB HEMETOLOGY METHOD 08/10/2024 10:25 AM EDT [facility] Platelets 185 130 - 400 K/mcL LAB HEMETOLOGY METHOD 08/10/2024 10:25 AM EDT [facility] MPV 10.6 7.0 - 11.0 FL LAB HEMETOLOGY METHOD 08/10/2024 10:25 AM EDT [facility] NRBC 0.0 <1.0 % LAB HEMETOLOGY METHOD 08/10/2024 10:25 AM EDT [facility] NRBC Absolute 0.00 <0.10 K/mcL LAB HEMETOLOGY METHOD 08/10/2024 10:25 AM EDT [facility] Blood Venous blood specimen / Unknown Venipuncture / Unknown 08/10/2024 5:21 AM EDT 08/10/2024 9:44 AM EDT us Gerardo Nice MD LAB BLOOD ORDERABLES Final Resul t [facility] [address] [place] [address], documented in this encounter Visit Diagnoses Diagnosis Other specified sepsis (CMS/HCC V24, CMS/HCC V28) Type 2 diabetes mellitus without complications (CMS/HCC V24, CMS/HCC V28) documented in this encounter Care Teams Hospitalist Nocturnist Physician Relationship Specialty Start Date End Date Gerardo Nice MD 38 [facility] [address] [place], [phone] PCP - General Family Medicine 07/29/24 documented as of this encounter
--- OUTSIDE RECORDS SUMMARY | 2024-11-29 16:43 | XMS_ITS | Clinical Summary ---
Author Organization [facility] Address [address] [place] [address] Care Team Providers Care Sugar Cane Planting Equipment Operator Name Role Phone Melanie Cummins Primary Care Provider [phone] Allergies No known active allergies Medications Medication [...] age to complete this topic Care Teams Sugar Cane Planting Equipment Operator Relationship Specialty Start Date End Date Melanie Cummins PA PCP - General Physician Mold Filler And Drainer 12/09/21
--- OUTSIDE RECORDS SUMMARY | 2024-11-29 16:43 | XMS_ITS | Encounter Summary ---
Author Organization [facility] Address [address] [place] [address] Phone Care Team Providers Care Wallpaper Scraper Name Role Phone Unavailable Primary Care Provider Unavailabl e Encounter Details Date Type Department Care Team (Late st Contact Info) Description 10/18/2024 Scanned Document [facility] [address] [place], [place] [address] Yolanda Doll MD [address] [place] [address] Social History Tobacco Use Types [...] PM EDT Follow Up [facility] [address] [place], [place] [address] Yolanda Doll MD [address] [place] [address] documented as of this encounter Visit Diagnoses Not on filedocumented in this encounter
--- OUTSIDE RECORDS SUMMARY | 2024-11-29 16:43 | XMS_ITS | Encounter Summary ---
Author Organization [facility] [place] [address] Care Team Providers Care Md Ophthalmologist Name Role Phone Gerardo Nice MD Primary Care Provider [phone] Encounter Details Date Type Department Care Team (Late st Contact Info) Description 08/05/[address] [facility] - Main Lab [address] [facility] [place] [address] Gerardo Nice MD [address] [facility] [address] [place], [phone] Other specified sepsis (CMS/HCC V24, CMS/HCC [...] 08/07/2024 6:14 AM EDT Other specified sepsis ([facility] V24, [facility] V28) CBC AND DIFFERENTIAL Routine 08/07/2024 6:14 AM EDT Other specified sepsis ([facility] V24, [facility] V28) COMPREHENSIVE METABOLIC PANEL Routine 08/07/2024 6:14 AM EDT Other specified sepsis ([facility] V24, [facility] V28) documented in this encounter Results * (ABNORMAL) CBC auto differential (08/07/2024 6:14 AM EDT) WBC 6.6 4.8 - 10.8 K/mcL LAB HEMETOLOGY METHOD 08/07/2024 10:50 AM [facility] RBC 3.40(L) 4.50 - 5.50 M/mcL LAB HEMETOLOGY METHOD 08/07/2024 10:50 AM [facility] Hemoglobin 10.6(L) 13.5 - 17.5 g/dL LAB HEMETOLOGY METHOD 08/07/2024 10:50 AM [facility] Hematocrit 33.1(L) 42.0 - 54.0 % LAB HEMETOLOGY METHOD 08/07/2024 10:50 AM [facility] MCV 96.5 79.0 - 98.0 FL LAB HEMETOLOGY METHOD 08/07/2024 10:50 AM [facility] MCH 30.9 27.0 - 32.0 pcg LAB HEMETOLOGY METHOD 08/07/2024 10:50 AM [facility] MCHC 32.0 32.0 - 37.0 g/dL LAB HEMETOLOGY METHOD 08/07/2024 10:50 AM [facility] RDW 15.4(H) 11.0 - 15.0 % LAB HEMETOLOGY METHOD 08/07/2024 10:50 AM [facility] Platelets 202 130 - 400 K/mcL LAB HEMETOLOGY METHOD 08/07/2024 10:50 AM [facility] MPV 10.6 7.0 - 11.0 FL LAB HEMETOLOGY METHOD 08/07/2024 10:50 AM [facility] NRBC 0.0 <1.0 % LAB HEMETOLOGY METHOD 08/07/2024 10:50 AM [facility] NRBC Absolute 0.00 <0.10 K/mcL LAB HEMETOLOGY METHOD 08/07/2024 10:50 AM [facility] Neutrophils Relative 69.8 % LAB HEMETOLOGY METHOD 08/07/2024 10:50 AM [facility] Lymphocytes Relative 17.1 % LAB HEMETOLOGY METHOD 08/07/2024 10:50 AM [facility] Monocytes Relative 10.2 % LAB HEMETOLOGY METHOD 08/07/2024 10:50 AM [facility] Eosinophils Relative 1.8 % LAB HEMETOLOGY METHOD 08/07/2024 10:50 AM [facility] Basophils Relative 0.5 % LAB HEMETOLOGY METHOD 08/07/2024 10:50 AM [facility] Immature Granulocytes Relative 0.6 % LAB HEMETOLOGY METHOD 08/07/2024 10:50 AM [facility] Neutrophils Absolute 4.57 1.50 - 7.00 K/mcL LAB HEMETOLOGY METHOD 08/07/2024 10:50 AM [facility] Lymphocytes Absolute 1.12 1.00 - 5.00 K/mcL LAB HEMETOLOGY METHOD 08/07/2024 10:50 AM EDT [facility] Monocytes Absolute 0.67 0.20 - 1.00 K/mcL LAB HEMETOLOGY METHOD 08/07/2024 10:50 AM EDT [facility] Eosinophils Absolute 0.12 0.00 - 0.50 K/[facility] LAB HEMETOLOGY METHOD 08/07/2024 10:50 AM EDT [facility] Basophils Absolute 0.03 0.00 - 0.20 K/[facility] LAB HEMETOLOGY METHOD 08/07/2024 10:50 AM EDT [facility] Immature Granulocytes Absolute 0.04(H) 0.00 - 0.03 K/[facility] LAB HEMETOLOGY METHOD 08/07/2024 10:50 AM [facility] Blood Venous blood specimen / Unknown Venipuncture / Unknown 08/07/2024 6:14 AM EDT 08/07/2024 10:19 AM EDT us Gerardo Nice MD LAB BLOOD ORDERABLES Final Resul t [facility] [address] [place] [address], * (ABNORMAL) Comprehensive metabolic panel (08/07/2024 6:14 AM EDT) Sodium 132(L) 133 - 145 mmol/L LAB CHEMISTRY METHOD 08/07/2024 11:02 AM T [facility] Potassium 4.8 3.5 - 5.5 mmol/L LAB CHEMISTRY METHOD 08/07/2024 11:02 AM [facility] Chloride 97 96 - 110 mmol/L LAB CHEMISTRY METHOD 08/07/2024 11:02 AM [facility] CO2 25 21 - 32 mmol/L LAB CHEMISTRY METHOD 08/07/2024 11:02 AM [facility] Anion Gap 10 3 - 11 LAB CHEMISTRY METHOD 08/07/2024 11:02 AM [facility] Glucose 134(H) 70 - 100 mg/dL LAB CHEMISTRY METHOD 08/07/2024 11:02 AM [facility] BUN 12 5 - 25 mg/dL LAB CHEMISTRY METHOD 08/07/2024 11:02 AM [facility] Creatinine 0.60(L) 0.70 - 1.30 mg/dL LAB CHEMISTRY METHOD 08/07/2024 11:02 AM [facility] eGFR 111 >=60 mL/min/1. 73m2 LAB CHEMISTRY METHOD 08/07/2024 11:02 AM [facility] Comment:Calculation based on the Chronic Kidney Disease Epidemiology Collaboration (CKD-EPI) equation refit without adjustment for race. BUN/Creatinine Ratio 20.0 LAB CHEMISTRY METHOD 08/07/2024 11:02 AM [facility] Calcium 8.4(L) 8.5 - 10.5 mg/dL LAB CHEMISTRY METHOD 08/07/2024 11:02 AM [facility] AST (SGOT) 49(H) 10 - 42 unit/L LAB CHEMISTRY METHOD 08/07/2024 11:02 AM [facility] ALT (SGPT) 26 10 - 60 unit/L LAB CHEMISTRY METHOD 08/07/2024 11:02 AM [facility] Alkaline Phosphatase 99 42 - 121 unit/L LAB CHEMISTRY METHOD 08/07/2024 11:02 AM [facility] Total Protein 6.8 6.0 - 8.0 g/dL LAB CHEMISTRY METHOD 08/07/2024 11:02 AM [facility] Albumin 1.8(L) 3.2 - 5.0 g/dL LAB CHEMISTRY METHOD 08/07/2024 11:02 AM [facility] Total Bilirubin 3.1(H) 0.0 - 1.4 mg/dL LAB CHEMISTRY METHOD 08/07/2024 11:02 AM EDT [facility] Blood Venous blood specimen / Unknown Venipuncture / Unknown 08/07/2024 6:14 AM EDT 08/07/2024 10:19 AM EDT us Gerardo Nice MD LAB BLOOD ORDERABLES Final Resul t [facility] [address] [place] [address], documented in this encounter Visit Diagnoses Diagnosis Other specified sepsis (CMS/HCC V24, CMS/HCC V28) documented in this encounter Care Teams Md Ophthalmologist Relationship Specialty Start Date End Date Gerardo Nice MD [address] [place] [address], [phone] PCP - General Family Medicine 07/29/24 documented as of this encounter
--- OUTSIDE RECORDS SUMMARY | 2024-11-29 16:43 | XMS_ITS | Encounter Summary ---
Author Organization [facility] Address [address] [place] [address] Phone Care Team Providers Care Senior Corporate Accountant Name Role Phone Unavailable Primary Care Provider Unavailabl e Encounter Details Date Type Department Care Team (Late st Contact Info) Description 11/29/2024 Scanned Document [facility] [address] [place], [place] [id number] Yolanda Doll MD [address] [place] [address] Social History Tobacco Use Types [...] PM EDT Follow Up [facility] [address] [place], [place] [id number] Yolanda Doll MD [address] [place] [address] documented as of this encounter Procedures Procedure Name Priority Date/Time Associated Diagnosis Comments LAB SCAN Routine 11/29/2024 9:46 AM EDT documented in this encounter Results * Lab Scan (11/29/2024 9:46 AM EDT) Yolanda Doll MD LAB BLOOD ORDERABLES Liliam l Result documented in this encounter Visit Diagnoses Not on filedocumented in this encounter
--- OUTSIDE RECORDS SUMMARY | 2024-11-29 16:43 | XMS_ITS | Encounter Summary ---
Author Organization [facility] Address [address] [place] [address] Phone Care Team Providers Care Rn Palliative Name Role Phone Unavailable Primary Care Provider Unavailabl e Encounter Details Date Type Department Care Team (Late st Contact Info) Description 11/21/2024 Scanned Document [facility] [address] [place], [place] [id number] Yolanda Doll MD [address] [place] [address] Social History Tobacco Use Types [...] PM EDT Follow Up [facility] [address] [place] [address] Yolanda Doll MD [address] [place] [address] documented as of this encounter Procedures Procedure Name Priority Date/Time Associated Diagnosis Comments LAB SCAN Routine 11/20/2024 1:21 PM EDT documented in this encounter Results * Lab Scan (11/20/2024 1:21 PM EDT) us Yolanda Doll MD LAB BLOOD ORDERABLES Liliam l Result documented in this encounter Visit Diagnoses Not on filedocumented in this encounter
--- OUTSIDE RECORDS SUMMARY | 2024-11-29 16:43 | XMS_ITS | Encounter Summary ---
Author Organization [facility] [place] [address] Care Team Providers Care Reprint Sorter Name Role Phone Gerardo Nice MD Primary Care Provider [phone] Encounter Details Date Type Department Care Team (Late st Contact Info) Description 07/29/2024 Lab Requisition [facility] - Main Lab [address] [facility] [place] [address] Gerardo Nice MD 38 [facility] [address] [place], [phone] Sepsis, unspecified organism (CMS/HCC V24, CMS/HCC [...] 07/29/2024 6:10 AM EDT Sepsis, unspecified organism ([facility] V24, [facility] V28) COMPREHENSIVE METABOLIC PANEL Routine 07/29/2024 6:10 AM EDT Sepsis, unspecified organism ([facility] V24, [facility] V28) documented in this encounter Results * [...] LAB CHEMISTRY METHOD 07/29/2024 12:11 PM EDT [facility] Calcium 7.7(L) 8.5 - 10.5 [...] MD LAB BLOOD ORDERABLES Final Resul t [facility] [address] [place] [address], [place] [phone] * (ABNORMAL) Complete blood count (07/29/2024 6:10 [...] LAB HEMETOLOGY METHOD 07/29/2024 11:47 AM EDT [facility] Blood Venous blood specimen / Unknown Venipuncture / Unknown 07/29/2024 6:10 AM EDT 07/29/2024 10:55 AM EDT us Gerardo Nice MD LAB BLOOD ORDERABLES Final Resul t [facility] [address] [place] [address], documented in this encounter Visit Diagnoses Diagnosis Sepsis, unspecified organism (CMS/HCC V24, CMS/HCC V28) documented in this encounter Care Teams Reprint Sorter Relationship Specialty Start Date End Date Gerardo Nice MD [address] [place] [address], [phone] PCP - General Family Medicine 07/29/24 documented as of this encounter
--- OUTSIDE RECORDS SUMMARY | 2024-11-29 16:43 | XMS_ITS | Encounter Summary ---
Author Organization [facility] Address [address] [place] [address] Phone Care Team Providers Care Operations Mgr Name Role Phone Unavailable Primary Care Provider Unavailabl e Encounter Details Date Type Department Care Team (Late st Contact Info) Description 11/15/2024 Scanned Document [facility] [address] [place], [place] [address] Yolanda Doll MD [address] [place] [address] Social History Tobacco Use Types [...] PM EDT Follow Up [facility] [address] [place] [address] Yolanda Doll MD [address] [place] [address] documented as of this encounter Procedures Procedure Name Priority Date/Time Associated Diagnosis Comments LAB SCAN Routine 11/15/2024 9:19 AM EDT documented in this encounter Results * Lab Scan (11/15/2024 9:19 AM EDT) us Yolanda Doll MD LAB BLOOD ORDERABLES Liliam l Result documented in this encounter Visit Diagnoses Not on filedocumented in this encounter
--- OUTSIDE RECORDS SUMMARY | 2024-11-29 16:43 | XMS_ITS | Encounter Summary ---
Author Organization [facility] [place] [address] Care Team Providers Care Sustainability Manager Name Role Phone Gerardo Nice MD Primary Care Provider [phone] Encounter Details Date Type Department Care Team (Late st Contact Info) Description 08/10/2024 Lab Requisition [facility] - Main Lab [address] [facility] [place] [address] Gerardo Nice MD 38 [facility] [address] [place], [address] Diarrhea, unspecified Social History Tobacco Use [...] Antigen Negative Negative 08/10/2024 11:44 AM EDT [facility] C difficile Toxins A+B, EIA Negative Negative 08/10/2024 11:44 AM EDT [facility] Comment:NEGATIVE FOR TOXIN P RODUCING CLOSTRIDIOIDES DIFFICILE, NO ADDITIONAL TESTING IS NECESSARY. Stool Rectum structure / Unknown 08/09/2024 8:00 PM EDT 08/10/2024 9:32 AM EDT us Gerardo Nice MD LAB MICROBIOLOGY - GENERAL ORDER GINA Final Result [facility] [address] [place] [address], [place] [phone] documented in this encounter Visit Diagnoses Diagnosis Diarrhea, unspecified documented in this encounter Care Teams Sustainability Manager Relationship Specialty Start Date End Date Gerardo Nice MD [address] [place] [address] [address] [place], [phone] PCP - General Family Medicine 07/29/24 documented as of this encounter
--- OUTSIDE RECORDS SUMMARY | 2024-11-29 16:43 | XMS_ITS | Encounter Summary ---
Author Organization [facility] Address [address] [place] [address] Phone Care Team Providers Care Cylinder Valve Repairer Name Role Phone Unavailable Primary Care Provider Unavailabl e Encounter Details Date Type Department Care Team (Late st Contact Info) Description 11/15/2024 Results Follow-Up [facility] [address] [place] [address] Yolanda Doll MD [address] [place] [address] Lab Scan Social History Tobacco [...] they wantt o f/u with ID from [facility] will call if they decide to come [...] PM EDT Follow Up [facility] [address] [place], [place] [id number] Yolanda Doll MD [address] [place] [address] documented as of this encounter Visit Diagnoses Not on filedocumented in this encounter
--- OUTSIDE RECORDS SUMMARY | 2024-11-29 16:43 | XMS_ITS | Encounter Summary ---
Author Organization [facility] [place] [address] Care Team Providers Care Welfare Investigator Name Role Phone Gerardo Nice MD Primary Care Provider [phone] Encounter Details Date Type Department Care Team (Late st Contact Info) Description 08/03/2024 Lab Requisition [facility] - Main Lab [address] [facility] [place] [address] Gerardo Nice MD 38 [facility] [address] [place], [address] Unspecified infectious disease Social History Tobacco [...] and culture (08/03/2024 3:00 AM EDT) Specific [place] Urine 1.008 1.003 - 1.030 LAB URINALYSIS - AUTOMATED METHOD 08/03/2024 10:10 AM [facility] pH, Urine 6.5 5.0 - 8.0 pH LAB URINALYSIS - AUTOMATED METHOD 08/03/2024 10:10 AM [facility] Leukocytes, Urine Negative Negative LAB URINALYSIS - AUTOMATED METHOD 08/03/2024 10:10 AM [facility] Nitrite, Urine Negative Negative LAB URINALYSIS - AUTOMATED METHOD 08/03/2024 10:10 AM [facility] Protein, Urine Negative <=Trace mg/dL LAB URINALYSIS - AUTOMATED METHOD 08/03/2024 10:10 AM [facility] Glucose, Urine Negative Negative mg/dL LAB URINALYSIS - AUTOMATED METHOD 08/03/2024 10:10 AM [facility] Ketones, Urine Negative Negative mg/dL LAB URINALYSIS - AUTOMATED METHOD 08/03/2024 10:10 AM [facility] Urobilinogen, Urine >=8.0(A) 0.2 - 1.0 mg/dL LAB URINALYSIS - AUTOMATED METHOD 08/03/2024 10:10 AM [facility] Bilirubin, Urine Negative Negative LAB URINALYSIS - AUTOMATED METHOD 08/03/2024 10:10 AM EDT [facility] Blood, Urine Negative Negative LAB URINALYSIS - AUTOMATED METHOD 08/03/2024 10:10 AM EDT [facility] Urine Urine specimen obtained by clean catch procedure / Unknown Non-blood Collection / Unknown 08/03/2024 3:00 AM EDT 08/03/2024 8:26 AM EDT Gerardo Nice MD LAB URINE ORDERABLES Final Resul t Performing Organization Address City/[facility]/ZIP Co de Phone Number [facility] [address] [place] [address], [place] [phone] * Carey urine culture tube (08/03/2024 3:00 AM EDT) Extra Tube Hold for add-ons. 08/03/2024 10:02 AM EDT [facility] Comment:Auto resulted. Urine Urine specimen obtained by clean catch procedure / Unknown Non-blood Collection / Unknown 08/03/2024 3:00 AM EDT 08/03/2024 8:26 AM EDT Gerardo Nice MD LAB URINE ORDERABLES Final Resul t Performing Organization Address City/[facility]/ZIP Co de Phone Number [facility] [address] [place] [address], [place] [phone] documented in this encounter Visit Diagnoses Diagnosis Unspecified infectious disease documented in this encounter Care Teams Welfare Investigator Relationship Specialty Start Date End Date Gerardo Nice MD [address] [place] [address], [phone] PCP - General Family Medicine 07/29/24 documented as of this encounter
--- OUTSIDE RECORDS SUMMARY | 2024-11-29 16:43 | XMS_ITS | Encounter Summary ---
Author Organization [facility] Address [address] [place] [address] Phone Care Team Providers Care Assembler Engine Name Role Phone Unavailable Primary Care Provider Unavailabl e Encounter Details Date Type Department Care Team (Late st Contact Info) Description 09/07/2024 Scanned Document [facility] [address] [place], [place] [address] Yolanda Doll MD [address] [place] [address] Social History Tobacco Use Types [...] PM EDT Follow Up [facility] [address] [place], [place] [address] Yolanda Doll MD [address] [place] [address] documented as of this encounter Visit Diagnoses Not on filedocumented in this encounter
--- OUTSIDE RECORDS SUMMARY | 2024-11-29 16:43 | XMS_ITS | Encounter Summary ---
[facility] Organization [facility] [address] Care Team Providers Care Substation Technician Name Role Phone Gerardo Nice MD Primary Care Provider Encounter Details Date Type Department Care Team (Late st Contact Info) Description 08/14/2024 Lab Requisition [facility] - Main Lab [address] [facility] [place] [address] Gerardo Nice MD [address] [facility] [address] [place], [phone] Other specified sepsis (CMS/HCC V24, CMS/HCC [...] 08/14/2024 5:40 AM EDT Other specified sepsis ([facility] V24, [facility] V28) CBC AND DIFFERENTIAL Routine 08/14/2024 5:40 AM EDT Other specified sepsis ([facility] V24, [facility] V28) COMPREHENSIVE METABOLIC PANEL Routine 08/14/2024 5:40 AM EDT Other specified sepsis ([facility] V24, [facility] V28) documented in this encounter Results * (ABNORMAL) CBC auto differential (08/14/2024 5:40 AM EDT) WBC 6.3 4.8 - 10.8 K/mcL LAB HEMETOLOGY METHOD 08/14/2024 12:01 PM [facility] RBC 3.00(L) 4.50 - 5.50 M/mcL LAB HEMETOLOGY METHOD 08/14/2024 12:01 PM [facility] Hemoglobin 9.3(L) 13.5 - 17.5 g/dL LAB HEMETOLOGY METHOD 08/14/2024 12:01 PM [facility] Hematocrit 29.3(L) 42.0 - 54.0 % LAB HEMETOLOGY METHOD 08/14/2024 12:01 PM [facility] MCV 97.0 79.0 - 98.0 FL LAB HEMETOLOGY METHOD 08/14/2024 12:01 PM [facility] MCH 30.8 27.0 - 32.0 pcg LAB HEMETOLOGY METHOD 08/14/2024 12:01 PM [facility] MCHC 31.7(L) 32.0 - 37.0 g/dL LAB HEMETOLOGY METHOD 08/14/2024 12:01 PM [facility] RDW 14.6 11.0 - 15.0 % LAB HEMETOLOGY METHOD 08/14/2024 12:01 PM [facility] Platelets 219 130 - 400 K/mcL LAB HEMETOLOGY METHOD 08/14/2024 12:01 PM [facility] MPV 10.4 7.0 - 11.0 FL LAB HEMETOLOGY METHOD 08/14/2024 12:01 PM [facility] NRBC 0.0 <1.0 % LAB HEMETOLOGY METHOD 08/14/2024 12:01 PM [facility] NRBC Absolute 0.00 <0.10 K/mcL LAB HEMETOLOGY METHOD 08/14/2024 12:01 [facility] Neutrophils Relative 59.3 % LAB HEMETOLOGY METHOD 08/14/2024 12:01 [facility] Lymphocytes Relative 23.8 % LAB HEMETOLOGY METHOD 08/14/2024 12:01 [facility] Monocytes Relative 13.4 % LAB HEMETOLOGY METHOD 08/14/2024 12:01 [facility] Eosinophils Relative 2.7 % LAB HEMETOLOGY METHOD 08/14/2024 12:01 [facility] Basophils Relative 0.5 % LAB HEMETOLOGY METHOD 08/14/2024 12:01 PM [facility] Immature Granulocytes Relative 0.3 % LAB HEMETOLOGY METHOD 08/14/2024 12:01 PM [facility] Neutrophils Absolute 3.70 1.50 - 7.00 K/mcL LAB HEMETOLOGY METHOD 08/14/2024 12:01 PM [facility] Lymphocytes Absolute 1.49 1.00 - 5.00 K/mcL LAB HEMETOLOGY METHOD 08/14/2024 12:01 PM EDT [facility] Monocytes Absolute 0.84 0.20 - 1.00 K/[facility] LAB HEMETOLOGY METHOD 08/14/2024 12:01 PM EDT [facility] Eosinophils Absolute 0.17 0.00 - 0.50 K/[facility] LAB HEMETOLOGY METHOD 08/14/2024 12:01 PM EDT [facility] Basophils Absolute 0.03 0.00 - 0.20 K/[facility] LAB HEMETOLOGY METHOD 08/14/2024 12:01 PM EDT [facility] Immature Granulocytes Absolute 0.02 0.00 - 0.03 K/[facility] LAB HEMETOLOGY METHOD 08/14/2024 12:01 PM [facility] Blood Venous blood specimen / Unknown Venipuncture / Unknown 08/14/2024 5:40 AM EDT 08/14/2024 10:55 AM EDT us Gerardo Nice MD LAB BLOOD ORDERABLES Final Resul t [facility] [address] [place] [address], * (ABNORMAL) Comprehensive metabolic panel (08/14/2024 5:40 AM EDT) Sodium 132(L) 133 - 145 mmol/L LAB CHEMISTRY METHOD 08/14/2024 12:52 PM [facility] Potassium 3.9 3.5 - 5.5 mmol/L LAB CHEMISTRY METHOD 08/14/2024 12:52 PM [facility] Chloride 95(L) 96 - 110 mmol/L LAB CHEMISTRY METHOD 08/14/2024 12:52 PM [facility] CO2 29 21 - 32 mmol/L LAB CHEMISTRY METHOD 08/14/2024 12:52 PM T [facility] Anion Gap 8 3 - 11 LAB CHEMISTRY METHOD 08/14/2024 12:52 PM [facility] Glucose 157(H) 70 - 100 mg/dL LAB CHEMISTRY METHOD 08/14/2024 12:52 PM [facility] BUN 9 5 - 25 mg/dL LAB CHEMISTRY METHOD 08/14/2024 12:52 PM [facility] Creatinine 0.56(L) 0.70 - 1.30 mg/dL LAB CHEMISTRY METHOD 08/14/2024 12:52 PM [facility] eGFR 113 >=60 mL/min/1. 73m2 LAB CHEMISTRY METHOD 08/14/2024 12:52 PM [facility] Comment:Calculation based on the Chronic Kidney Disease Epidemiology Collaboration (CKD-EPI) equation refit without adjustment for race. BUN/Creatinine Ratio 16.1 LAB CHEMISTRY METHOD 08/14/2024 12:52 PM [facility] Calcium 8.3(L) 8.5 - 10.5 mg/dL LAB CHEMISTRY METHOD 08/14/2024 12:52 PM [facility] AST (SGOT) 36 10 - 42 unit/L LAB CHEMISTRY METHOD 08/14/2024 12:52 PM [facility] ALT (SGPT) 21 10 - 60 unit/L LAB CHEMISTRY METHOD 08/14/2024 12:52 PM [facility] Alkaline Phosphatase 93 42 - 121 unit/L LAB CHEMISTRY METHOD 08/14/2024 12:52 PM [facility] Total Protein 6.5 6.0 - 8.0 g/dL LAB CHEMISTRY METHOD 08/14/2024 12:52 PM [facility] Albumin 1.7(L) 3.2 - 5.0 g/dL LAB CHEMISTRY METHOD 08/14/2024 12:52 PM [facility] Total Bilirubin 2.0(H) 0.0 - 1.4 mg/dL LAB CHEMISTRY METHOD 08/14/2024 12:52 PM EDT [facility] Blood Venous blood specimen / Unknown Venipuncture / Unknown 08/14/2024 5:40 AM EDT 08/14/2024 10:55 AM EDT us Gerardo Nice MD LAB BLOOD ORDERABLES Final Resul t [facility] [address] [place] [address], documented in this encounter Visit Diagnoses Diagnosis Other specified sepsis (CMS/HCC V24, CMS/HCC V28) documented in this encounter Care Teams Substation Technician Relationship Specialty Start Date End Date Gerardo Nice MD [address] [place] [address], [phone] PCP - General Family Medicine 07/29/24 documented as of this encounter
--- OUTSIDE RECORDS SUMMARY | 2024-11-29 16:43 | XMS_ITS | Encounter Summary ---
Author Organization [facility] [place] [address] Care Team Providers Care Carpentry Foreman Name Role Phone Gerardo Nice MD Primary Care Provider [phone] Encounter Details Date Type Department Care Team (Late st Contact Info) Description 08/25/[address] [facility] - Main Lab [address] [facility] [address] [facility] [place] [address] Gerardo Nice MD [address] [facility] [facility] [address] [place], [phone] Other specified sepsis (CMS/HCC V24, CMS/HCC [...] V28) documented in this encounter Care Teams Carpentry Foreman Relationship Specialty Start Date End Date Gerardo Nice MD [address] [place] [address] [address] [place], [phone] PCP - General Family Medicine 07/29/24 documented as of this encounter
--- OUTSIDE RECORDS SUMMARY | 2024-11-29 16:44 | XMS_ITS | Clinical Summary ---
Author Organization Formerly [facility] Address [address] [place] [address] Care Team Providers Care Director Patient Name Role Phone Catherine Gallardo RN Unavailable [phone] Sammie Estrella PA-C Primary Care Provider [phone] Allergies No known active allergies Medications cyclobenzaprine [...] CBC, CMP, ESR, CRP and fax to [phone] Assessment & Plan (11/05/2024 1:58 PM EDT): Recent L4-L5 osteomyelitis epidural abscess. Previous admission s/p L3 lumbar decompression and fusion 10/12 Continue IV Rocephin until 11/23 per ID recommendations ID following; Obtain q. Rickey CBC, CMP, ESR, CRP and fax to [phone] Assessment & Plan (11/04/2024 1:32 PM EDT): Recent L4-L5 osteomyelitis epidural abscess. Previous admission s/p L3 lumbar decompression and fusion 10/12 Continue IV Rocephin until 11/23 ID following; Obtain q. Wednesday CBC, CMP, ESR, CRP and fax to [phone] Assessment & Plan (11/03/2024 4:34 PM EDT): Recent L4-L5 osteomyelitis epidural abscess. Previous admission s/p L3 lumbar decompression and fusion 10/12 Continue IV Rocephin until 11/23 ID following; Obtain q. Wednesday CBC, CMP, ESR, CRP and fax to [phone] Assessment & Plan (11/02/2024 3:45 PM EDT): Recent L4-L5 osteomyelitis epidural abscess. Previous admission s/p L3 lumbar decompression and fusion 10/12 Continue IV Rocephin until 11/23 ID following; Obtain q. Wednesday CBC, CMP, ESR, CRP and fax to [phone] Assessment & Plan (11/01/2024 4:35 PM EDT): Recent L4-L5 osteomyelitis epidural abscess. Previous admission s/p L3 lumbar decompression and fusion 10/12 Continue IV Rocephin until 11/23 ID following; Obtain q. Wednesday CBC, CMP, ESR, CRP and fax to [phone] Assessment & Plan (10/31/2024 3:51 PM EDT): [...] Description 11/20/2024 1:00 PM EDT Office Visit [facility] [place] [address] [facility] [place] [phone] Merle Villafana PA S/P lumbar fusion (Primary Dx) 11/20/2024 8:15 AM EDT Ancillary Procedure [facility] [place] [address] [facility] [place] [phone] Merle Villafana PA S/P lumbar fusion 11/20/2024 Travel 11/17/2024 Orders Only [facility] [place] [address] [place] [facility] [place] [address] Merle Villafana PA S/P lumbar fusion (Primary Dx) 11/16/2024 2:00 PM EDT Clinical Support Food and Nutrition Services 80 [facility] 80 [place] [address] Mahesh Interiano MD Petracca, Nicole L, RD Weakness (Primary Dx); Controlled type 2 diabetes mellitus without complication, without long-term current use of insulin ([facility]) 11/14/2024 Telephone [facility] [place] [address] [facility] [place] [address] Andrey Bailon MD 11/13/2024 Orders Only [facility] 12 [address] [place] [address] Mahesh Interiano MD Acute on chronic anemia 11/06/2024 10:43 AM EDT Anesthesia Event [facility] [address] [place] [phone] Rossy Schwartz MD Edison, Amanda C, PA-C 11/06/2024 9:58 AM EDT - 11/06/2024 10:44 AM EDT Surgery [facility] [address] [place] [phone] Lisa Duarte, COLONOSCOPY 11/03/2024 2:15 PM EDT Anesthesia Event [facility] [address] [place] [phone] Bonifacio Garrido MD Ritchie, Agatha T, PA-C 11/03/2024 1:30 PM EDT - 11/03/2024 2:00 PM EDT Surgery [facility] [address] [place] [address] Lisa Duarte DO ENDOSCOPY UPPER 10/28/2024 4:43 PM EDT - 11/07/2024 1:04 PM EDT Hospital Encounter CENTER 12 80 [facility] [place] [phone] Ann Marie Bloom MD Thakurathi, Priyesh, MD Pokhrel, Kamal, MD Botzak, MD Jaydon Kirk, Mahesh Gilliam MD Weakness (Primary Dx); Hypokalemia; Confusion; Somnolence; Acute on chronic anemia; Drug-induced constipation; Osteomyelitis of lumbar spine (HCC) Discharge Disposition: Home with Health Care Services 10/28/2024 Travel 10/23/2024 Telephone [facility] [place] [address] [place] [address] Andrey Bailon MD 10/12/2024 12:30 PM EDT - 10/12/2024 6:16 PM EDT Surgery [facility] OR [address] [place] [address] Andrey Bailon MD L3-Pelvis Lumbar Decompression and Fusion for Epidural Abscess 10/12/2024 12:29 PM EDT Anesthesia Event [facility] OR [address] [place] [address] Carlos Akhtar MD Cooke, Shea, CRNA 10/10/2024 6:45 PM EDT Ancillary Procedure [facility] [address] [place] [address] Provider, File Room 10/10/2024 6:40 PM EDT Ancillary Procedure [facility] [address] [place] [phone] Provider, File Room 10/10/2024 6:40 PM EDT Ancillary Procedure [facility] [address] [place] [address] Provider, File Room 10/09/2024 9:29 PM EDT - 10/20/2024 1:42 PM EDT Hospital Encounter [facility] [address] [place] [address] Ruben Gómez MD Antwi-Boasiako, Samuel, MD Thomas, Listy A, MD Verma, Abhiroop, MD Abscess (Primary Dx); Epidural abscess; Type 2 diabetes mellitus without complication, unspecified whether superintendent terminal insulin use (HCC) Discharge Disposition: Shelter Facility 10/09/2024 Orders Only [facility] 80 [place] [address] Provider, File Room 10/09/2024 Travel 09/13/2024 7:45 AM EDT - 09/13/2024 8:56 AM EDT Surgery [facility]iology [address] [place] [address] Yemi Hernandez PA-C IR PICC Placement including Imaging w/o Pump or Port > 5 years 09/11/2024 11:07 AM EDT Anesthesia Event [facility] [place] [facility] - Cardiology [address] [place] [address] Raj Turner MD Yano, Kyle, MD 09/11/2024 Travel 09/06/2024 8:10 PM EDT - 09/14/2024 12:44 PM EDT Hospital Encounter [facility] [address] [place] [address] Ruben Gómez MD Javed, Zohaib, MD Shrestha, Elina, MD Regelmann, David J, MD Farhan, Mariam, MD Mahali, Rakesh, MD Epidural abscess (Primary Dx); Bacteremia; Abscess; Type 2 diabetes mellitus without complication, without long-term current use of insulin (HCC); Drug-induced constipation Discharge Disposition: Home with Health Care Services 09/06/2024 Orders Only [facility] 80 [place] [address] Provider, File Room 09/06/2024 Travel from Last 3 Months Social History Tobacco Use Types Packs/Day Years Used Date Smoking Tobacco: Never Smokeless Tobacco: Never Tobacco Cessation:Counseling Given: Not Answered Alcohol Use Standard Drinks/Week Comments Never 0 (1 standard drink = 0.6 oz pur e alcohol) [facility] Utilities Answer Date Recorded In the past [...] any time in the past 12 m [facility], were you homeless or living in a [...] Clinical Support Food and Nutrition Services 80 [facility] 80 [place] [phone] 02/19/2025 2:00 PM EST Office Visit [facility] [place] [address] [place] [phone] Andrey Bailon MD [address] [place], [place] [address] Health Maintenance Due Date Last Done Comments [...] this topic Medical Devices Implanted Type Area Gambling Dealer Device Identifier Shelf Expiration Date Model / Serial / Lot Iflx-Gf-100 Influx Proteios Xl - [id number] Implanted:Qty: 1 on 10/12/2024 by Andrey Bailon MD at [facility] Tissue Bilatera l: Back [employer] 04/30/2029 IFLX-GF- 100 / [id number] / Iflx-Fw-05 Graft Bone Influx Plus Demineralized Bone Matrix 5 Cc Allogr - [id number] Implanted:Qty: 1 on 10/12/2024 by Andrey Bailon MD at [facility] Tissue Bilatera l: Back [employer] 06/23/2027 IFLX-FW- 05 / [id number] / [id number] Iflx-Fw-05 Graft Bone Influx Plus Demineralized Bone Matrix 5 Cc Allogr - [id number] Implanted:Qty: 1 on 10/12/2024 by Andrey Bailon MD at [facility] Tissue Bilatera l: Back [employer] 06/23/2027 IFLX-FW- 05 / [id number] / [id number] 620-010 Filler Bone Void 10cc 20cc Calcium Slf Stimulan Rpd Cure Kit - [id number] Implanted:Qty: 1 on 10/12/2024 by Andrey Bailon MD at [facility] Void Filler Bilatera l: Back [employer] - A BTG INT [id number] 04/28/2027 620-010 / / [id number] 7.5 X 50ml Screw Implanted:Qty: 2 on 10/12/2024 by Andrey Bailon MD at [facility] N/A: Spine Lumbar [facility] [id number] 50 / / 7.5 X 55mm Screw Implanted:Qty: 4 on 10/12/2024 by Andrey Bailon MD at [facility] N/A: Spine Lumbar [facility] [id number] / / 9.0 X 110 Screw Implanted:Qty: 2 on 10/12/2024 by Andrey Bailon MD at [facility] N/A: Spine Lumbar [facility] [id number] 0 / / Set Screw Implanted:Qty: 8 on 10/12/2024 by Andrey Bailon MD at [facility] N/A: Spine Lumbar [facility] [id number] 5 / / 120mm Adam Implanted:Qty: 2 on 10/12/2024 by Andrey Bailon MD at [facility] N/A: Spine Lumbar [facility] [id number] / / Procedures Procedure Name Priority [...] resultswithin the time period is included. Pathologist [facility] [place] POC Glucose 216(H) 65 - 99 mg/dL 11/07/2024 11:52 AM EDT Blood specimen / Unknown 11/07/2024 11:48 AM EDT 11/07/2024 11:52 AM EDT Ann Marie Bloom MD POINT OF CARE TEST ORDERABLES Fi nal Result HOSPITAL LAB See Below * (ABNORMAL) COMPLETE BLOOD COUNT, WITHOUT DIFFERENTIAL (11/07/2024 7:00 AM EDT) Only the most recent of17 resultswithin the time period is included. Pathologist [facility] White Blood Cell Count 4.7 4.0 - 11.0 Thou/uL 11/07/2024 10:49 AM [facility] Platelet Count 115(L) 150 - 450 Thou/uL 11/07/2024 10:49 AM [facility] Hemoglobin 7.7(L) 13.0 - 17.7 g/dL 11/07/2024 10:49 AM [facility] Hematocrit 24.1(L) 39.0 - 54.0 % 11/07/2024 10:49 AM [facility] Red Blood Cell Count 2.63(L) 4.50 - 6.20 Mil/uL 11/07/2024 10:49 AM [facility] MCV 92 80 - 100 fL 11/07/2024 10:49 AM [facility] MCH 29.3 27.0 - 31.0 pg 11/07/2024 10:49 AM [facility] MCHC 32.0 30.0 - 36.0 g/dL 11/07/2024 10:49 AM [facility] RDW 21.3(H) 11.5 - 14.5 % 11/07/2024 10:49 AM [facility] MPV 11.1 7.5 - 12.5 fL 11/07/2024 10:49 AM [facility] Immature Platelet Fraction 5.6 1.2 - 8.6 % 11/07/2024 10:49 AM [facility] Blood Blood specimen / Unknown 11/07/2024 7:00 AM EDT 11/07/2024 10:19 AM EDT us Mahesh Interiano MD LAB BLOOD ORDERABLES Final R esult [address] [address], [address] [address] * Erythrocyte Sedimentation Rate (ESR) (11/06/2024 6:00 AM EDT) Erythrocyte Sediment Rate (ESR) 19 <20 MM/HR 11/06/2024 7:06 AM [facility] Blood Blood specimen / Unknown 11/06/2024 6:00 AM EDT 11/06/2024 6:49 AM EDT us Mahesh Interiano MD LAB BLOOD ORDERABLES Final R esult Performing Organization Address [facility] Co de Phone Number [address] [address], [address] [address] * (ABNORMAL) C-Reactive Protein (11/06/2024 6:00 AM EDT) Only the most recent of5 resultswithin the time period is included. C-Reactive Protein 1.60(H) 0 - 0.49 mg/dL 11/06/2024 7:39 AM EDT [facility] Blood Blood specimen / Unknown 11/06/2024 6:00 AM EDT 11/06/2024 6:49 AM EDT us Mahesh Interiano MD LAB BLOOD ORDERABLES Final R esult Performing Organization Address [facility] Co de Phone Number [address] [address], [address] [address] * Magnesium (AM) (11/06/2024 6:00 AM EDT) Only the most recent of14 resultswithin the time period is included. Magnesium 1.6 1.6 - 2.7 mg/dL 11/06/2024 7:39 AM EDT [facility] Blood Blood specimen / Unknown 11/06/2024 6:00 AM EDT 11/06/2024 6:49 AM EDT us Mahesh Interiano MD LAB BLOOD ORDERABLES Final R esult Performing Organization Address City/[facility] Co de Phone Number [address] [address], [address] [address] * (ABNORMAL) Comprehensive Metabolic Panel (11/06/2024 6:00 AM EDT) Only the most recent of6 resultswithin the time period is included. Glucose 183(H) 65 - 99 mg/dL 11/06/2024 7:39 AM [facility] Comment:Fasting: <100 mg/dL, Non-Fasting: <200 mg/dL (ADA 2004) Blood Urea Nitrogen (BUN) 7(L) 8 - 21 mg/dL 11/06/2024 7:39 AM [facility] Creatinine 0.8 0.5 - 1.3 mg/dL 11/06/2024 7:39 AM [facility] eGFR >90 >59 11/06/2024 7:39 AM [facility] Comment:CKD-EPI (2020) in mL /min/1.73 sq meters. Sodium 140 136 - 145 mmol/L 11/06/2024 7:39 AM [facility] Potassium 4.1 3.4 - 5.3 mmol/L 11/06/2024 7:39 AM [facility] Chloride 105 98 - 107 mmol/L 11/06/2024 7:39 AM [facility] CO2 23 22 - 33 mmol/L 11/06/2024 7:39 AM [facility] Calcium 9.1 8.7 - 10.5 mg/dL 11/06/2024 7:39 AM [facility] Alkaline Phosphatase 124 45 - 128 U/L 11/06/2024 7:39 AM [facility] Aspartate Aminotrans (AST) 43 10 - 55 U/L 11/06/2024 7:39 AM [facility] Alanine Aminotrans (ALT) 21 10 - 55 U/L 11/06/2024 7:39 AM [facility] Bilirubin, Total 2.5(H) 0.2 - 1.0 mg/dL 11/06/2024 7:39 AM [facility] Protein, Total 6.1(L) 6.3 - 8.3 g/dL 11/06/2024 7:39 AM [facility] Albumin 3.4(L) 3.5 - 5.0 g/dL 11/06/2024 7:39 AM [facility] BUN/Creatinine Ratio 9(L) 10.0 - 25.0 Ratio 11/06/2024 7:39 AM EDT [facility] Globulin 2.7 1.5 - 3.9 g/dL 11/06/2024 7:39 AM EDT [facility] Albumin/Globulin Ratio 1.3 1.0 - 3.0 Ratio 11/06/2024 7:39 AM EDT [facility] Anion Gap 12 7 - 17 11/06/2024 7:39 AM EDT [facility] Blood Blood specimen / Unknown 11/06/2024 6:00 AM EDT 11/06/2024 6:49 AM EDT Mahesh Interiano MD LAB BLOOD ORDERABLES Final R esult Performing Organization Address [facility] [place] [address], [place] [address] * (ABNORMAL) Hemoglobin and Hematocrit (11/05/2024 7:00 PM EDT) Only the most recent of5 resultswithin the time period is included. Hematocrit 24.0(L) 39.0 - 54.0 % 11/05/2024 8:39 PM T [facility] Hemoglobin 7.7(L) 13.0 - 17.7 g/dL 11/05/2024 8:39 PM T [facility] Blood Blood specimen / Unknown 11/05/2024 7:00 PM EDT 11/05/2024 8:12 PM EDT Mahesh Interiano MD LAB BLOOD ORDERABLES Final R esult Performing Organization Address [facility]/[place] [address], [address] [address] * (ABNORMAL) Basic Metabolic Panel (11/05/2024 5:00 AM EDT) Only the most recent of20 resultswithin the time period is included. Glucose 156(H) 65 - 99 mg/dL 11/05/2024 5:52 AM EDT [facility] Comment:Fasting: <100 mg/dL, Non-Fasting: <200 mg/dL (ADA 2005) Blood Urea Nitrogen (BUN) 6(L) 8 - 21 mg/dL 11/05/2024 5:52 AM [facility] Creatinine 0.8 0.5 - 1.3 mg/dL 11/05/2024 5:52 AM [facility] eGFR >90 >59 11/05/2024 5:52 AM [facility] Comment:CKD-EPI (2020) in mL /min/1.73 sq meters. Sodium 141 136 - 145 mmol/L 11/05/2024 5:52 AM [facility] Potassium 3.5 3.4 - 5.3 mmol/L 11/05/2024 5:52 AM [facility] Chloride 108(H) 98 - 107 mmol/L 11/05/2024 5:52 AM [facility] CO2 22 22 - 33 mmol/L 11/05/2024 5:52 AM [facility] Anion Gap 11 7 - 17 11/05/2024 5:52 AM [facility] Calcium 8.4(L) 8.7 - 10.5 mg/dL 11/05/2024 5:52 AM [facility] BUN/Creatinine Ratio 8(L) 10.0 - 25.0 Ratio 11/05/2024 5:52 AM [facility] Blood Blood specimen / Unknown 11/05/2024 5:00 AM EDT 11/05/2024 5:29 AM EDT us Mahesh Interiano MD LAB BLOOD ORDERABLES Final R esult [address] [address], [address] [address] * (ABNORMAL) Hepatic Function Panel (Routine) (11/03/2024 5:00 PM EDT) Only the most recent of4 resultswithin the time period is included. Alkaline Phosphatase 104 45 - 128 U/L 11/03/2024 7:36 PM EDT [facility] Aspartate Aminotrans (AST) 49 10 - 55 U/L 11/03/2024 7:36 PM EDT [facility] Alanine Aminotrans (ALT) 17 10 - 55 U/L 11/03/2024 7:36 PM EDT [facility] Bilirubin, Total 3.1(H) 0.2 - 1.0 mg/dL 11/03/2024 7:36 PM EDT [facility] Protein, Total 5.9(L) 6.3 - 8.3 g/dL 11/03/2024 7:36 PM EDT [facility] Albumin 3.4(L) 3.5 - 5.0 g/dL 11/03/2024 7:36 PM EDT [facility] Bilirubin, Direct 1.2(H) 0 - 0.2 mg/dL 11/03/2024 7:36 PM EDT [facility] Globulin 2.5 1.5 - 3.9 g/dL 11/03/2024 7:36 PM [facility] Albumin/Globulin Ratio 1.4 1.0 - 3.0 Ratio 11/03/2024 7:36 PM [facility] Blood Blood specimen / Unknown 11/03/2024 5:00 PM EDT 11/03/2024 6:58 PM EDT us Mahesh Interiano MD LAB BLOOD ORDERAB[place] [address], [place] [address] * (ABNORMAL) Reticulocyte with Index (11/03/2024 9:40 AM EDT) Reticulocyte Count 3.8(H) 0.7 - 2.0 % 11/03/2024 6:46 PM EDT [facility] Reticulocyte, Absolute 106.1(H) 30.0 - 100.0 Thou/uL 11/03/2024 6:46 PM [facility] Reticulocyte Index 2.0 1.0 - 2.0 % 11/03/2024 6:46 PM EDT [facility] Retic Hemoglobin Content 35.50(H) 28 - 35 pg 11/03/2024 6:46 PM EDT [facility] Immature Reticulocyte Fraction 19.5(H) 2.3 - 15.9 % 11/03/2024 6:46 PM EDT [facility] Blood specimen / Unknown 11/03/2024 9:40 AM EDT 11/03/2024 10:44 AM EDT Mahesh Interiano MD LAB BLOOD ORDERABLES Final R esult Performing Organization Address [facility] [place] [address], [place] [address] * Red Blood Cell Morphology (11/03/2024 9:40 AM EDT) Normochromic Present 11/03/2024 11:43 PM EDT [facility] Normocytic Present 11/03/2024 11:43 PM EDT [facility] Blood specimen / Unknown 11/03/2024 9:40 AM EDT 11/03/2024 10:44 AM EDT Mahesh Interiano MD LAB BLOOD ORDERABLES Final R esult Performing Organization Address [facility] [place] [address], [place] [address] * Prepare RBC's:Prepare in: Units; Number of [...] ORDERAB LES Final Result Performing Organization Address [facility] Co de Phone Number HOSPITAL LAB See Below * (ABNORMAL) LACTATE DEHYDROGENASE (LDH) (11/03/2024 4:38 AM EDT) Lactate Dehydrogenase (LDH) 294(H) 120 - 260 U/L 11/03/2024 10:24 AM EDT [facility] 11/03/2024 4:38 AM EDT 11/03/2024 4:49 AM EDT Mahesh Interiano MD LAB BLOOD ORDERABLES Final R esult Performing Organization Address [facility] [place] [address], [place] [address] * (ABNORMAL) HAPTOGLOBIN (11/03/2024 4:38 AM EDT) Haptoglobin <10(L) 30 - 200 mg/dL 11/03/2024 10:24 AM EDT [facility] 11/03/2024 4:38 AM EDT 11/03/2024 4:49 AM EDT Mahesh Interiano MD LAB BLOOD ORDERABLES Final R esult Performing Organization Address [facility] [place] [address], [place] [address] * Pathology (11/03/2024 12:00 AM EDT) Only the most recent of2 resultswithin the time period is included. Report Please See Procedures/Addenda Results Below [facility] [id number] CLIA ID [id number] [address] [place] [address] [phone] Surgical Pathology Report PATIENT NAME: MARTIN ALVES [facility] REC NUMBER: [id number] (AGE): 1965 (Age: 58) SPECIMEN NUMBER: [id number] DATE OBTAINED: 11/03/2024 DIAGNOSIS ENDOSCOPIC BIOPSIES: A. STOMACH: GASTRIC ANTRAL GLAND MUCOSA WITH REACTIVE GASTROPATHY. H. PYLORI IMMUNOHISTOCHEMICAL STAIN WILL BE REPORTED IN AN ADDENDUM. wa/11/07/2024 Electronically Signed Out TETO BRADFORD MD COMMENT [id number] X [id number] Clinical Information and History: Procedure: [...] NEGATIVE FOR H. PYLORI (NEGATIVE IMMUNOHISTOCHEMICAL STAIN). [address]47 The tests used in the work-up of [...] ABO/Rh A POSITIVE 11/02/2024 1:49 PM EDT [facility] Antibody Screen NEGATIVE 11/02/2024 1:49 PM T [facility] Specimen Expiration 11/05/2024 11/02/2024 1:49 PM T [facility] Blood Bank Comment Second Sample needed for Blood Transfusion 11/02/2024 1:49 PM T [facility] Unit Number [id number] 11/03/2024 4:54 AM EDT [facility] Blood Component Type LEUKOREDUCED RED CELLS 11/03/2024 4:54 AM EDT [facility] Unit Division 00 11/03/2024 4:54 AM [facility] Unit Status ISSUED,FINAL 11/04/2024 12:24 AM [facility] Transfusion Status OK TO TRANSFUSE 11/03/2024 4:54 AM [facility] Crossmatch Result Electronically Compatible 11/03/2024 4:54 AM [facility] Unit Number [id number] 11/03/2024 5:19 AM [facility] Blood Component Type LEUKOREDUCED RED CELLS 11/03/2024 5:19 [facility] 11/03/2024 5:19 AM [facility] Unit Status ISSUED,FINAL 11/04/2024 12:24 AM [facility] Transfusion Status OK TO TRANSFUSE 11/03/2024 5:19 AM [facility] Crossmatch Result Electronically Compatible 11/03/2024 5:19 AM [facility] Blood Blood specimen / Unknown 11/02/2024 11:57 AM EDT 11/02/2024 12:44 PM EDT Comment:Blood us Lisa Duarte DO BLOOD BANK TEST ORDERABL ES Final Result HOSPITAL LAB See Below [address] [address] * (ABNORMAL) Protime-INR (AM) (11/02/2024 11:25 AM EDT) Only the most recent of3 resultswithin the time period is included. Anticoagulant NO ANTI COAGULANT MEDS 11/02/2024 7:36 AM EDT [facility] Prothrombin Time (PT) 16.9(H) 10.0 - 13.5 seconds 11/02/2024 12:36 PM EDT [facility] INR 1.5 11/02/2024 12:36 PM EDT [facility] Comment:INR Therapeutic Rang es: Standard dose anticoagulant 2.0 to 3.0, High dose anticoagulant 2.5-3.5. Blood Blood specimen / Unknown 11/02/2024 11:25 AM EDT 11/02/2024 12:06 PM EDT Lisa Duarte DO LAB BLOOD ORDERABLES Fin al Result Performing Organization Address [facility] [place] [address], [place] [address] * ABO Confirmation (11/02/2024 6:00 AM EDT) ABO/Rh A POSITIVE 11/03/2024 4:53 AM EDT [facility] Blood specimen / Unknown 11/02/2024 6:00 AM EDT 11/03/2024 4:26 AM EDT Ann Marie Bloom MD BLOOD BANK TEST ORDERABLES Final Result Performing Organization Address [facility] [place] [address], [place] [address] * Potassium (11/01/2024 6:00 PM EDT) Only the most recent of2 resultswithin the time period is included. Potassium 3.6 3.4 - 5.3 mmol/L 11/01/2024 7:05 PM EDT [facility] Blood Blood specimen / Unknown 11/01/2024 6:00 PM EDT 11/01/2024 6:37 PM EDT Mahesh Interiano MD LAB BLOOD ORDERABLES Final R esult Performing Organization Address City/[facility]/ZIP Co de Phone Number [address] [place] [address], [facility] [address] [place] [address] * XR Chest 1 view-Portable (STAT) (11/01/2024 [...] vessels are patent. us Derrick Cuello MD [facility] US ORDERABLES Final [...] microangiopathic white matter changes. Derrick Cuello MD [facility] [place] MRI ORDERABLES Final Result * Alpha-Fetoprotein (AFP), Tumor Marker (10/30/2024 1:34 PM EDT) Alpha-Fetoprotein (AFP), Tumor Marker 1.6 <6.1 ng/mL 11/03/2024 4:07 PM EDT [facility] Comment: (NOTE) This test was performed using the Yahaira Cambria chemiluminescent method. Values obtained from different assay methods cannot be used interchangeably. AFP levels, regardless of value, should not be interpreted as absolute evidence of the presence or absence of disease. Test performed by [facility] [id number] [place] [address] Compliance Reviewer: Faby Smith MD,PHD,JOSH Test Reported by [facility], [facility], [address] [place], [place] Jigar Woods M.D., Ph.D., Director of Laboratories , [facility] [id number] Blood Blood specimen / Unknown 10/30/2024 1:34 PM EDT 10/30/2024 1:48 PM EDT us Derrick Cuello MD LAB BLOOD ORDERABLES Final Resu lt Performing Organization Address [facility] de Phone Number [facility], [facility] [address] , [place], [place] [address] * (ABNORMAL) Zinc Level (10/30/2024 1:34 PM EDT) Zinc 37(L) 60 - 130 mcg/dL 11/02/2024 1:47 AM EDT [facility] Comment: (NOTE) This test was developed and its analytical performance characteristics have been determined by [place], [place]. It has not been cleared or approved by the U.S. Food and Drug Administration. This assay has been validated pursuant to the CLIA regulations and is used for clinical purposes. Blood Blood specimen / Unknown 10/30/2024 1:34 PM EDT 10/30/2024 1:48 PM EDT us Derrick Cuello MD LAB BLOOD ORDERABLES Final Resu lt Performing Organization Address [facility] de Phone Number Continuity Control, [facility] [address] , [place], [place] [address] [facility] [address] [place] [address] * Blood Culture (10/29/2024 6:22 PM EDT) Only the most recent of6 resultswithin the time period is included. Culture Sterile after 5 days 11/03/2024 8:38 AM EDT [facility] Blood Blood specimen / Unknown 10/29/2024 6:22 PM EDT 10/29/2024 8:41 PM EDT Comment:Blood us Derrick Cuello MD LAB BLOOD ORDERABLES Final Resu lt [facility] [address] [place] [address], [place] * US Guided Bedside Abdominal Paracentesis (10/29/2024 1:53 PM EDT) Anatomical Region Laterality Modality Ultrasound Narrative 10/29/2024 1:57 PM EDT PROCEDURE: ULTRASOUND-GUIDED DIAGNOSTIC PARACENTESIS INDICATION: New onset Ascites SPECIMEN: Specimen collected as requested. Sample left with bedside RN. ACCESS: 5 Israeli One-Step needle/catheter system REQUESTING PRACTITIONER: Derrick Cuello [...] adjacent organs or vascular structures. A 5 Israeli One-Step needle/catheter system was utilized for access. [...] No fungus isolated 11/13/2024 7:52 AM EDT [facility] Abdominal Cavity 10/29/2024 1:45 PM EDT 10/29/2024 2:46 PM EDT Comment:Fluid, Ascitic us Ann Marie Bloom MD MICROBIOLOGY - GENERAL ORDERABLE S Final Result Performing Organization Address [facility] Co de Phone Number [facility] [address] [place] [address], * Body Fluid Culture, Ascites (includes Aerobic, Anaerobic and Gram Stain) (10/29/2024 1:27 PM EDT) Special Requests Limited quantity of fluid received, results may be impacted. 10/30/2024 9:40 AM EDT [facility] Gram stain suggestive of Few neutrophils Mononuclear cells No organisms seen 10/29/2024 3:04 PM EDT [facility] Culture No aerobes and anaerobes isolated after 7 days 11/05/2024 3:12 PM EDT [facility] Fluid, Ascitic (Abdominal Cavity) 10/29/2024 1:27 PM EDT 10/29/2024 2:22 PM EDT Comment:Fluid, Ascitic Derrick Cuello MD MICROBIOLOGY - GENERAL ORDERABL ES Final Result [facility] [address] [place] [address], [address] [address] * Protein, Body Fluid (10/29/2024 1:26 PM EDT) Source Abdominal Cavity 10/29/2024 1:27 PM EDT [facility] Comment:Fluid, Ascitic Protein, Body Fluid 0.7 g/dL 10/29/2024 2:36 PM EDT [facility] Comment:The reference interv al(s) and other method performance specifications are unavailable for this body fluid. Comparison of this result with the concentration in the blood, serum, or plasma is recommended. Fluid, Ascitic (Abdominal Cavity) 10/29/2024 1:26 PM EDT 10/29/2024 2:10 PM EDT us Derrick Cuello MD BODY FLUIDS AND STOOLS ORDERABL ES Final Result Performing Organization Address [facility] [place] [address], [place] [address] * LDH, Ascites (10/29/2024 1:26 PM EDT) Source Abdominal Cavity 10/29/2024 1:27 PM EDT [facility] Comment:Fluid, Ascitic Lactate Dehydrogenase, Body Fluid 41 U/L 10/29/2024 2:36 PM EDT [facility] Comment:The reference interv al(s) and other method performance specifications are unavailable for this body fluid. Comparison of this result with the concentration in the blood, serum, or plasma is recommended. Fluid, Ascitic (Abdominal Cavity) 10/29/2024 1:26 PM EDT 10/29/2024 2:10 PM EDT us Derrick Cuello MD BODY FLUIDS AND STOOLS ORDERABL ES Final Result Performing Organization Address [facility] [place] [address], [place] [address] * Glucose, Ascites (10/29/2024 1:26 PM EDT) Source Abdominal Cavity 10/29/2024 1:27 PM EDT [facility] Comment:Fluid, Ascitic Glucose, Body Fluid 138 mg/dL 10/29/2024 2:36 PM EDT [facility] Comment:The reference interv al(s) and other method performance specifications are unavailable for this body fluid. Comparison of this result with the concentration in the blood, serum, or plasma is recommended. Fluid, Ascitic (Abdominal Cavity) 10/29/2024 1:26 PM EDT 10/29/2024 2:10 PM EDT us Derrick Cuello MD BODY FLUIDS AND STOOLS ORDERABL ES Final Result Performing Organization Address [facility] Co de Phone Number [address] [address], [address] [address] * Albumin, Body Fluid (10/29/2024 1:26 PM EDT) Source Abdominal Cavity 10/29/2024 1:27 PM EDT [facility] Comment:Fluid, Ascitic Albumin, Body Fluid 0.3 g/dL 10/29/2024 2:36 PM EDT [facility] Comment:The reference interv al(s) and other method performance specifications are unavailable for this body fluid. Comparison of this result with the concentration in the blood, serum, or plasma is recommended. Fluid, Ascitic (Abdominal Cavity) 10/29/2024 1:26 PM EDT 10/29/2024 2:10 PM EDT us Derrick Cuello MD BODY FLUIDS AND STOOLS ORDERABL ES Final Result Performing Organization Address [facility] Co de Phone Number [address] [address], [address] [address] * Cell Count, Reflex Differential, Body Fluid (10/29/2024 1:26 PM EDT) Appearance, Body Fluid Clear 10/29/2024 3:15 PM EDT [facility] Color Yellow 10/29/2024 3:15 PM EDT [facility] Nucleated Cells, Fluid 82 /CUMM 10/29/2024 2:25 PM EDT [facility] RBC, Fluid <2,000 /CUMM 10/29/2024 2:25 PM EDT [facility] Neutrophil, Body Fluid 3 % 10/29/2024 3:15 PM EDT [facility] Lymphoctye, Body Fluid 29 % 10/29/2024 3:15 PM EDT [facility] Monocyte, Body Fluid 9 % 10/29/2024 3:15 PM EDT [facility] Histiocyte, Body Fluid 57 % 10/29/2024 3:15 PM EDT [facility] Mesothelial, Body Fluid 2 % 10/29/2024 3:15 PM EDT [facility] Smear Comment, Body Fluid The reference interval and other method performance specifications are unavailable for this body fluid. Comparison of the result with concentration in the blood, serum, or plasma is recommended 10/29/2024 3:15 PM EDT [facility] Fluid, Ascitic (Abdominal Cavity) 10/29/2024 1:26 PM EDT 10/29/2024 2:10 PM EDT us Derrick Cuello MD BODY FLUIDS AND STOOLS ORDERABL [place] [address], [place] [address] * Cytology Report (10/29/2024 12:56 PM EDT) Report [facility] [id number] CLIA ID [id number] [address] [place] [address] / [phone] Cytopathology Report PATIENT NAME: MARTIN ALVES REC NUMBER: [id number] (AGE): 1965 (Age: 58) SPECIMEN NUMBER: [id number] DATE OBTAINED: 10/29/2024 DIAGNOSIS: A. ASCITIC FLUID WITH CELL BLOCK: NEGATIVE FOR MALIGNANT CELLS. REACTIVE MESOTHELIAL CELLS, HISTIOCYTES, AND INFLAMMATORY CELLS [facility]/10/31/2024 Electronically Signed Out MOISÉS DODSON [...] Cuello MD PATHOLOGY/CYTOLOGY ORDERABLES F inal Result [facility] See Below * Urinalysis with Reflex to Microscopic and Culture (10/29/2024 10:43 AM EDT) Only the most recent of2 resultswithin the time period is included. Color Yellow 10/29/2024 11:13 AM EDT Clarity Clear 10/29/2024 11:13 AM EDT Specific Haskell 1.010 1.005 - 1.030 10/29/2024 11:13 AM [...] Average Glucose (10/29/2024 9:32 AM EDT) Pathologist [facility] Hemoglobin A1C 6.7(H) <5.7 % 10/29/2024 11:21 AM EDT [facility] Comment: A1c% Interpretation 5.7 - 6.0 Increase risk of diabetes 6.1 - 6.4 Higher risk of diabetes > or = 6.5 Consistent with diabetes Diabetes Care, 33(Supp 1):S1-S61, 2010 Estimated Average Glucose 146 mg/dL 10/29/2024 11:21 AM EDT [facility] Blood Blood specimen / Unknown 10/29/2024 9:32 AM EDT 10/29/2024 9:40 AM EDT us Roman Rangel MD LAB BLOOD [place]AB[place] [address], [place] [address] * Folate Level (10/29/2024 9:32 AM EDT) [facility] Folate, Serum 9.9 >7.2 ng/mL 10/29/2024 10:28 AM EDT [facility] Comment:Specimen hemolyzed. Results may be artifactually elevated. Blood Blood specimen / Unknown 10/29/2024 9:32 AM EDT 10/29/2024 9:41 AM EDT us Roman Rangel MD LAB BLOOD [place]AB[place] [address], [place] [address] * (ABNORMAL) Iron and Total Iron Binding Capacity (10/28/2024 9:38 PM EDT) [facility] Iron 67 53 - 167 ug/dL 10/29/2024 2:45 AM EDT [facility] UIBC 79(L) 112 - 346 ug/dL 10/29/2024 2:45 AM EDT [facility] Total Iron Binding Capacity 146 100 - 400 ug/dL 10/29/2024 2:45 AM EDT [facility] Iron Sat 46 20 - 50 % 10/29/2024 2:45 AM EDT [facility] 10/28/2024 9:38 PM EDT 10/28/2024 9:47 PM EDT us Ann Marie Bloom MD LAB BLOOD ORDERABLES Final Resul t Performing Organization Address [facility]/[place] [address], [address] [address] * FERRITIN (10/28/2024 9:38 PM EDT) Only the most recent of2 resultswithin the time period is included. Ferritin 213 30 - 400 ug/L 10/29/2024 2:45 AM EDT [facility] 10/28/2024 9:38 PM EDT 10/28/2024 9:47 PM EDT us Ann Marie Bloom MD LAB BLOOD ORDERABLES Final Resul t Performing Organization Address [facility] [place] [address], [address] [address] * CK (10/28/2024 9:38 PM EDT) Only the most recent of2 resultswithin the time period is included. Creatine Kinase (CK) 64 24 - 204 U/L 10/28/2024 10:14 PM EDT [facility] Blood Blood specimen / Unknown 10/28/2024 9:38 PM EDT 10/28/2024 9:47 PM EDT us Ann Marie Bloom MD LAB BLOOD ORDERABLES Final Resul t Performing Organization Address [facility] [place] [address], [address] [address] * Ammonia (10/28/2024 9:38 PM EDT) Ammonia, Plasma 57 16 - 60 umol/L 10/28/2024 10:30 PM EDT [facility] Blood Blood specimen / Unknown 10/28/2024 9:38 PM EDT 10/28/2024 9:43 PM EDT us Ann Marie Bloom MD LAB BLOOD ORDERABLES Final Resul t [facility] [address] [place] [address], [address] [address] * CT Head w/o contrast (10/28/2024 7:47 PM EDT) Anatomical Region Laterality Modality Head Computed Tomogra phy 10/28/2024 7:23 PM EDT Impressions 10/28/2024 8:07 PM EDT * No acute intracranial hemorrhage or abnormal carey-white matter differentiation to suggest edematous territorial infarction. 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 Interpreted by: Donato Wang MD Sheet Rock [employer]ator I personally reviewed the images and the [...] volume atrophy. Interpreted by: Donato Wang MD Sheet Rock Applicator I personally reviewed the images and the resident's preliminary report and AGREE with the report as it is now presented ([id number]). Anna MAIER [facility] [place] ORDERABLES Final Result * (ABNORMAL) High Sensitivity Troponin T (10/28/2024 6:37 PM EDT) Only the most recent of2 resultswithin the time period is included. High Sensitivity Troponin T 37(H) <23 ng/L 10/28/2024 7:46 PM EDT [facility] Delta (Change) 1 <3 10/28/2024 7:46 PM EDT [facility] Comment:Increased 10/28/2024 6:37 PM EDT 10/28/2024 7:08 PM EDT us Anna MAIER LAB BLOOD ORDERABLES Final Resu lt [facility] [address] [place] [address], [facility] [address] [place] [address] * XR Chest 2 views (10/28/2024 6:07 PM EDT) Anatomical Region Laterality Modality Chest Computed Radiogr aphy 10/28/2024 5:21 PM EDT Impressions 10/28/2024 7:44 PM EDT Low lung volumes with bronchovascular crowding. Right medial lung base streaky opacities favor atelectasis. Interpreted by: Rodger De La Vega DO [employer] I personally reviewed the images and the [...] Interpreted by: Rodger De La Vega DO [employer]ator I personally reviewed the images and the [...] 4.0 - 11.0 Thou/uL 10/28/2024 5:57 PM [facility] Platelet Count 136(L) 150 - 450 Thou/uL 10/28/2024 5:57 PM [facility] Hemoglobin 7.5(L) 13.0 - 17.7 g/dL 10/28/2024 5:57 PM [facility] Hematocrit 22.7(L) 39.0 - 54.0 % 10/28/2024 5:57 PM [facility] Red Blood Cell Count 2.57(L) 4.50 - 6.20 Mil/uL 10/28/2024 5:57 PM [facility] MCV 88 80 - 100 fL 10/28/2024 5:57 PM [facility] MCH 29.2 27.0 - 31.0 pg 10/28/2024 5:57 PM [facility] MCHC 33.0 30.0 - 36.0 g/dL 10/28/2024 5:57 PM [facility] RDW 18.6(H) 11.5 - 14.5 % 10/28/2024 5:57 PM [facility] MPV 9.4 7.5 - 12.5 fL 10/28/2024 5:57 PM [facility] Neutrophils Auto 64.9 % 10/29/19 5:[facility] Immature Granulocytes 0.2 % 10/28/2024 5:57 PM [facility] Lymphocytes Auto 23.6 % 10/29/19 5:57 PM [facility] Monocytes Auto 7.0 % 10/28/2024 5:57 PM [facility] Eosinophils Auto 3.0 % 10/29/19 5:57 PM [facility] Basophils Auto 1.3 % 10/28/2024 5:57 PM EDT [facility] Abs Neutrophils Auto 3.08 2.00 - 7.50 Thou/uL 10/28/2024 5:57 PM EDT [facility] Abs Immature Granulocytes 0.01 0.00 - 0.10 Thou/uL 10/28/2024 5:57 PM EDT [facility] Abs Lymphocytes Auto 1.12(L) 1.50 - 4.50 Thou/uL 10/28/2024 5:57 PM EDT [facility] Abs Monocytes Auto 0.33 0.20 - 1.50 Thou/uL 10/28/2024 5:57 PM EDT [facility] Abs Eosinophils Auto 0.14 0.00 - 0.70 Thou/uL 10/28/2024 5:57 PM EDT [facility] Abs Basophils Auto 0.06 0.00 - 0.20 Thou/uL 10/28/2024 5:57 PM EDT [facility] Blood Blood specimen / Unknown 10/28/2024 5:46 PM EDT 10/28/2024 5:49 PM EDT us Anna MAIER LAB BLOOD [place] [address], [place] [address] * ECG 12 lead (10/28/2024 4:54 PM EDT) Only the most recent of3 resultswithin the time period is included. Ventricular rate 90 BPM EKG [facility] Atrial rate 90 BPM EKG [facility] P-R interval 134 ms EKG [facility] QRS duration 96 ms EKG [facility] Q-T interval 400 ms EKG [facility] QTC calculation (Bazett) 490 ms EKG [facility] P axis 15 degrees EKG [facility] R axis 57 degrees EKG [facility] T axis 48 degrees EKG [facility] 10/28/2024 4:54 PM EDT Narrative EKG [facility] - 10/28/2024 5:19 PM EDT Normal sinus rhythm with sinus arrhythmia Nonspecific ST and T wave abnormality Prolonged QT Abnormal ECG Confirmed by MD Luke John ([id number]) on 10/28/2024 5:19:25 PM Procedure Note Mateusz Luke MD - 10/28/2024 Normal sinus rhythm with sinus arrhythmia Nonspecific ST and T wave abnormality Prolonged QT Abnormal ECG Confirmed by MD Luke John ([id number]) on 10/28/2024 5:19:25 PM us Anna MAIER ECG ORDERABLES Final Result EKG [facility] * MRI External Result (10/24/2024 12:49 [...] - 175 ug/dL 10/16/2024 2:54 PM EDT [facility] UIBC 141 ug/dL 10/16/2024 2:54 PM EDT [facility] Total Iron Binding Capacity 183(L) 250 - 425 ug/dL 10/16/2024 2:54 PM EDT [facility] Iron Sat 23 20 - 50 % 10/16/2024 2:54 PM EDT [facility] 10/16/2024 2:10 PM EDT 10/16/2024 2:27 PM EDT Chau Portillo MD LAB BLOOD ORDERABLES Final Res ult [facility] [address] [place] [address], [place] * (ABNORMAL) Sed Rate (10/16/2024 2:10 PM EDT) Only the most recent of4 resultswithin the time period is included. Sedimentation Rate 90(H) 0 - 15 MM/HR 10/16/2024 3:31 PM EDT [facility] Blood Blood specimen / Unknown 10/16/2024 2:10 PM EDT 10/16/2024 2:26 PM EDT Chau Portillo MD LAB BLOOD ORDERABLES Final Res ult Performing Organization Address [facility]/[place] [address], [place] * VITAMIN B12 (10/16/2024 6:55 AM EDT) Vitamin B12 749 211 - 911 pg/mL 10/16/2024 8:37 AM EDT [facility] 10/16/2024 6:55 AM EDT 10/16/2024 7:31 AM EDT Chau Portillo MD LAB BLOOD ORDERABLES Final Res ult Performing Organization Address [facility]/[place] [address], [place] * Vancomycin Level, Random (10/16/2024 6:55 AM EDT) Only the most recent of2 resultswithin the time period is included. Vancomycin, Random 16 mg/L 10/16/2024 7:56 AM EDT [facility] Comment:No reference range e stablished for random levels. Time of Last Dose Information not given 10/16/2024 6:36 AM EDT [facility] Blood Blood specimen / Unknown 10/16/2024 6:55 AM EDT 10/16/2024 7:31 AM EDT us Chau Portillo MD LAB BLOOD ORDERABLES Final Res ult [facility] [address] [place] [address], [place] * US Renal (10/14/2024 2:31 PM [...] Urine 122 mg/dL 10/14/2024 12:50 PM EDT [facility] Comment:Reference range not established for random specimen. Urine Urine specimen / Unknown 10/14/2024 12:02 PM EDT 10/14/2024 12:20 PM EDT Chau Portillo MD URINE ORDERABLES Final Result Performing Organization Address [facility]/ZIP Co de Phone Number [facility] [address] [place] [address], [place] * SODIUM, URINE, RANDOM (10/14/2024 12:02 PM EDT) Only the most recent of2 resultswithin the time period is included. Sodium, Urine Random 14 mmol/L 10/14/2024 12:50 PM EDT [facility] Comment:Reference range not established for random specimen. Urine specimen / Unknown 10/14/2024 12:02 PM EDT 10/14/2024 12:20 PM EDT Chau Portillo MD URINE ORDERABLES Final Result Performing Organization Address [facility]/ZIP Co de Phone Number [facility] [address] [place] [address], [place] * Potassium, Random Urine (10/14/2024 12:02 PM EDT) Potassium, Urine (Random) 64 mmol/L 10/14/2024 12:50 PM EDT [facility] Comment:Reference range not established for random specimen. Urine specimen / Unknown 10/14/2024 12:02 PM EDT 10/14/2024 12:20 PM EDT Chau Portillo MD [place] [address], [place] * OSMOLALITY, URINE (10/14/2024 12:02 PM EDT) Osmolality, Urine 304 50 - 1,200 mOsm/Kg 10/14/2024 1:01 PM EDT [facility] Urine specimen / Unknown 10/14/2024 12:02 PM EDT 10/14/2024 12:20 PM EDT Chau Portillo MD URINE ORDERABLES Final Result Performing Organization Address [facility]/[place] [address], [place] * CREATININE, URINE, RANDOM (10/14/2024 12:02 PM EDT) Creatinine, Urine, Random 114 mg/dL 10/14/2024 12:50 PM EDT [facility] Comment:Reference range not established for random specimen. Urine specimen / Unknown 10/14/2024 12:02 PM EDT 10/14/2024 12:20 PM EDT Chau Portillo MD UR[place] [address], [place] * Chloride, Urine, Random (10/14/2024 12:02 PM EDT) Chloride, Urine, Random 25 mmol/L 10/14/2024 12:50 PM EDT [facility] Comment:Reference range not established for random specimen. Urine specimen / Unknown 10/14/2024 12:02 PM EDT 10/14/2024 12:20 PM EDT us Chau Portillo MD URINE ORDERABLES Final Result [facility] [address] [place] [address], [place] * (ABNORMAL) Urinalysis with Reflex to Microscopic (10/14/2024 11:57 AM EDT) Color Dark yellow 10/14/2024 12:47 PM EDT [facility] Clarity Turbid 10/14/2024 12:47 PM EDT [facility] Specific Haskell 1.023 1.003 - 1.030 10/14/2024 12:47 PM EDT [facility] pH 5.5 5.0 - 8.0 10/14/2024 12:47 PM EDT [facility] Leukocyte Esterase Small(A) Negative 10/14/2024 12:47 PM EDT [facility] Nitrite Negative Negative 10/14/2024 12:47 PM EDT [facility] Protein Small (30 mg/dL)(A) Negative 10/14/2024 12:47 PM EDT [facility] Glucose 100(H) 0 - 99 mg/dL 10/14/2024 12:47 PM EDT [facility] Ketones Trace(A) Negative 10/14/2024 12:47 PM EDT [facility] Blood Moderate(A) Negative 10/14/2024 12:47 PM EDT [facility] Urobilinogen 1.0 0.2 - 1.0 EU/dL 10/14/2024 12:47 PM EDT [facility] Bilirubin Small(A) Negative 10/14/2024 12:47 PM EDT [facility] WBC 122(H) 0 - 4 per hpf 10/14/2024 12:49 PM EDT [facility] RBC 0 0 - 4 per hpf 10/14/2024 12:49 PM EDT [facility] Bacteria Negative Negative 10/14/2024 12:49 PM EDT [facility] Squamous Epithelial Cells 1 per hpf 10/14/2024 12:49 PM EDT [facility] Hyaline Casts 10(H) 0 - 4 per lpf 10/14/2024 12:49 PM EDT [facility] Yeast ANAEROBIC SUBCULTURE(A ) Absent 10/14/2024 12:49 PM EDT [facility] Urine Urine specimen / Unknown 10/14/2024 11:57 AM EDT 10/14/2024 12:20 PM EDT us Chau Portillo MD URINE ORDERABLES Final Result [facility] [address] [place] [address], * Aerobic culture (Gram stain included) (10/12/2024 4:12 PM EDT) Only the most recent of2 resultswithin the time period is included. Gram stain suggestive of Few neutrophils Few squamous cells Red blood cells No organisms seen 10/12/2024 7:00 PM EDT [facility] Culture Negative after 3 days 10/15/2024 8:18 AM EDT [facility] Exudate Specimen from spinal cord / Unknown 10/12/2024 4:12 PM EDT us Andrey Bailon MD MICROBIOLOGY - GENERAL ORDER GINA Final Result [facility] [address] [place] [address], [facility] [address] [place] [address] * Anaerobic Culture (10/12/2024 4:12 PM EDT) Only the most recent of2 resultswithin the time period is included. Culture No anaerobes isolated after 7 days 10/19/2024 9:34 AM EDT [facility] Exudate Specimen from spinal cord / Unknown 10/12/2024 4:12 PM EDT Andrey Bailon MD MICROBIOLOGY - GENERAL ORDER GINA Final Result [facility] [address] [place] [address], [place] * Mycobacteria Culture (includes Acid Fast Smear) (10/12/2024 3:49 PM EDT) Only the most recent of2 resultswithin the time period is included. Culture No acid fast bacilli isolated. 11/24/2024 1:05 PM EDT [facility] Tissue Specimen from spinal cord / Unknown 10/12/2024 3:49 PM EDT Andrey Bailon MD MICROBIOLOGY - GENERAL ORDER GINA Final Result [facility] [facility] [address] [place] [address], * Tissue Culture (aerobic, anaerobic + Gram stain) (10/12/2024 3:49 PM EDT) Only the most recent of2 resultswithin the time period is included. Gram stain suggestive of No neutrophils No organisms seen 10/12/2024 11:44 PM EDT [facility] Culture No aerobes and anaerobes isolated after 7 days 10/20/2024 11:03 AM EDT [facility] Tissue Specimen from spinal cord / Unknown 10/12/2024 3:49 PM EDT us Andrey Bailon MD MICROBIOLOGY - GENERAL ORDER GINA Final Result [facility] [address] [place] [address], [place] * ANES LINE - ARTERIAL (10/12/2024 1:46 PM EDT) Viral Dennis CRNA - 10/12/2024 1:46 PM EDT Viral Cowan CRNA 10/12/2024 1:49 PM Anesthesia Procedure Note - Arterial Line Insertion- L radial Patient Name: Martin Alves : 1965 Procedure diagnosis: Anesthesia Performed by: Resident/VOTING MACHINE REPAIRER MD Viral Almonte CRNA Procedure Preparation Skin prep: 2% chlorhexidine - completely dried prior to procedure Hand hygeine performed prior to needle/catheter insertion Sterile barriers in place: cap, gloves and mask Sterile gel used for Ultrasound Procedure Details Zeus's test normal? normal Needle: 20 g Number of attempts: 2 Post Procedure Post-procedure: dressing applied us Carlos Akhtar MD [place] ANESTHESIA Final Resul t * ANES INTUBATION [...] baseline Complications: no complications us Viral Cowan VOTING MACHINE REPAIRER [place] ANESTHESIA Final Result * CT Lumbar spine [...] disc space is denoted on series 4, [id number]. Alignment: Lumbar lordosis is preserved. There is [...] is severe bilateral foraminal stenosis at the [id number]. There is subtle sclerosis at the posterior [...] resultswithin the time period is included. Narrative [facility] - 10/10/2024 6:41 PM EDT This study has been auto finalized and does not contain a result. us File Room Provider IMG DIGITIZE FILMS Final Resu lt MIGUEL [phone] * CR Chest Archive for Reference only (10/10/2024 6:35 PM EDT) Narrative [facility] 10/10/2024 6:35 PM EDT This study has been auto finalized and does not contain a result. us File Room Provider IMG DIGITIZE FILMS Final Resu lt MIGUEL [phone] * IR PICC PLACEMENT W/O PUMP OR [...] Clinical: 58-year-old male with epidural abscess requiring superintendent terminal IV antibiotics. OPERATORS: Darci Celis M.D.; Yemi Hernandez PA-C MEDICATIONS: Lidocaine 1%, sub-Q CONTRAST: None COMPLICATIONS: No immediate The procedure pulper operator maintained sterile precautions, including hand hygiene, cap, mask, sterile gloves and gown. The patient was placed supine on the interventional table. The left arm was prepped and draped in the usual sterile fashion. The pulper operator followed all elements of maximal sterile [...] vein was obtained. Under fluoroscopic guidance, a 5.5-Israeli peel-away sheath and guidewire were advanced. A 5-Israeli single lumen Power PICC measuring 50 centimeters [...] Clinical: 58-year-old male with epidural abscess requiring superintendent terminal IVantibiotics. OPERATORS: Darci Celis M.D.; Yemi Hernandez PA-C MEDICATIONS: Lidocaine 1%, sub-Q CONTRAST: None COMPLICATIONS: No immediate The procedure pulper operator maintained sterile precautions, including handhygiene, cap, mask, sterile gloves and gown. The patient was placed supineon the interventional table. The left arm was prepped and draped in theusual sterile fashion. The pulper operator followed all elements of maximal sterile [...] vein was obtained. Under fluoroscopic guidance, a 5.5-Israeli peel-away sheath and guidewirewere advanced. A 5-Israeli single lumen Power PICC measuring 50 centimeterswas [...] inserted atraumatically into the esophagus by the rural route mail carrier. With the patient in a supine position [...] - 5.1 mg/dL 09/10/2024 7:39 AM EDT [facility] Blood Blood specimen / Unknown 09/10/2024 6:26 AM EDT 09/10/2024 7:09 AM EDT us Rubi Hsieh MD LAB BLOOD ORDERABLES Final Resu lt [facility] [address] [place] [address], [place] * ECHOCARDIOGRAM COMPREHENSIVE WITH CONTRAST (09/07/2024 [...] - 297 mOsm/Kg 09/07/2024 3:27 PM EDT [facility] 09/07/2024 7:41 AM EDT 09/07/2024 8:36 AM EDT Rajeev Jimenez MD LAB BLOOD ORDERABLES Final Result [facility] [address] [place] [address], [place] * MRI Lumbar spine w w/o [...] body. There is involvement of the bilateral [id number] and pars and the right L4 pedicle, [...] ANTI COAGULANT MEDS 09/06/2024 9:52 PM EDT [facility] Partial Thromboplastin Time (PTT) 38(H) 26 - 37 seconds 09/06/2024 10:32 PM EDT [facility] Blood Blood specimen / Unknown 09/06/2024 10:08 PM EDT 09/06/2024 10:13 PM EDT us Soy Pickard MD LAB BLOOD ORDERABLES Final Resul t [facility] [address] [place] [address], from Last 3 Months Insurance UMR UMR [...] 10:01 PM 10/09/2024 9:29 PM Care Teams Director Patient Relationship Specialty Start Date End Date Sammie Estrella PA-C [address] [place] [id number] PCP - General Internal Medicine 11/20/24 Catherine Gallardo, RN [address] [address] Nurse Navigator Surgery, Neurosurgery 10/11/24 5
== END 2024-11-29 15:43 | disposition home or self-care (01) ==
LOC: HO.HGI 14:25
PROVIDERS: Visit Provider Internal Medicine
DX: K74.60 Unspecified cirrhosis of liver (principal); D69.6 Thrombocytopenia, unspecified
CPT/HCPCS: 99204; G2211

== ENCOUNTER 2024-11-29 15:54 | Outpatient (REF) | payer OTHER, SELFPAY ==
[2024-11-29 17:10] LABS: Hematocrit 30.0 % (42.0-52.0); Hemoglobin 9.9 g/dl (14.0-18.0); Mean Corpuscular HGB Conc 33.0 g/dl (31.0-36.0); Mean Corpuscular Hemoglobin 32.4 pg (27.0-33.0); Mean Corpuscular Volume 98.0 fL (80.0-98.0); NRBC Abs Auto 0.000 X10*3/uL (0.0-0.012); NRBC Pct Auto 0.0 /100WBC (0.0-0.2); Platelet Count 146 X10*3/uL (160-400); Red Blood Count 3.06 X10*6/uL (4.60-5.80); White Blood Count 4.8 X10*3/uL (4.8-10.8)
[2024-11-29 17:16] LABS: Hemoglobin A1C 117.8345 umol/L; INTERNATIONAL NORM RATIO 1.1 (0.9-1.1); Prothrombin Time 12.9 SEC (10.9-12.4); Total Hemoglobin (HGBA1C) 2608.0542 umol/L
[2024-11-29 17:42] LABS: Alanine Aminotransferase 17 U/L (0-40); Albumin Level 3.3 g/dL (3.5-5.0); Alkaline Phosphatase 121 U/L (39-117); Anion Gap 12 (12-20); Aspartate Amino Transferase 37 U/L (5-37); Blood Urea Nitrogen 21 mg/dL (9-16); Calcium 9.1 mg/dL (8.4-10.2); Carbon Dioxide 27 mmol/L (22-29); Chloride 102 mmol/L (96-108); Estimated Glomerular Filt Rate > 60; Iron 51 mcg/dL (45-160); Percent Iron Saturation 24 % (15-50); Potassium 4.1 mmol/L (3.3-5.1); Sodium 137 mmol/L (135-145); Total Iron Binding Capacity 217 mcg/dL (228-428); Total Protein 7.0 g/dL (6.5-8.0); Unsaturated Iron Binding 166 ug/dL
[2024-11-29 17:57] LABS: Ferritin 82 ng/mL (20-250)
[2024-11-30 07:53] LABS: Immunoglobulin A 708 mg/dL (47-310)
[2024-11-30 08:28] LABS: HBS Num1 > 1000.00 mIU/mL (0-7.99); HBc Num1 10.51 S/CO (0.00-0.79); HBsAGNum1 0.42 S/CO (0.00-0.99); HIV Num 1 0.07 S/CO (0.00-0.99); Hepatitis B Surface Antigen Negative (Negative); ~HepC Num1 0.11 S/CO (0.00-0.79); ~Hepatitis B Surface Antibody REACTIVE (Nonreactive); ~Hepatitis C Antibody Nonreactive (Nonreactive)
[2024-11-30 13:43] LABS: HBc Num2 10.32 S/CO; HBc Num3 9.99 S/CO
[2024-12-01 04:48] LABS: ~Hepatitis A Antibody IgG 6.01 S/CO (0.00-0.99)
[2024-12-01 13:54] LABS: HCV Log PCR <1.18 NOT DETECTED Log IU/mL (NOT DETECTED); HepC Viral Load <15 NOT DETECTED IU/mL (NOT DETECTED)
[2024-12-01 15:24] LABS: Anti Nuclear Antibody Screen NEGATIVE (NEGATIVE)
[2024-12-03 14:58] LABS: Liver Kidney Microsomal Ab <=20.0 U (<=20.0)
[2024-12-04 11:14] LABS: Phosphatidylethanol 16:0-18:1 NEGATIVE; Phosphatidylethanol 16:0-18:2 NEGATIVE
== END 2024-11-29 15:55 | disposition home or self-care (01) ==
LOC: HO.LAB 15:54
PROVIDERS: Visit Provider Internal Medicine
DX: Z01.84 Encounter for antibody response examination (principal); Z13.1 Encounter for screening for diabetes mellitus; Z51.81 Encounter for therapeutic drug level monitoring; Z11.4 Encounter for screening for human immunodeficiency virus [HIV]; B18.2 Chronic viral hepatitis C; K74.60 Unspecified cirrhosis of liver
CPT/HCPCS: 36415; 80053; 80321; 82103; 82105; 82728; 82784; 83036; 83540; 84443; 85027; 85610; 86015; 86038; 86364; 86376; 86381; 86704; 86706; 86708; 86803; 87340; 87389; 87522

== ENCOUNTER 2025-01-10 10:30 | Outpatient (REF) | payer OTHER, SELFPAY ==
[2025-01-10 12:14] LABS: Alanine Aminotransferase 21 U/L (0-40); Albumin Level 3.1 g/dL (3.5-5.0); Alkaline Phosphatase 104 U/L (39-117); Anion Gap 10 (12-20); Aspartate Amino Transferase 40 U/L (5-37); Blood Urea Nitrogen 18 mg/dL (9-16); Calcium 8.7 mg/dL (8.4-10.2); Carbon Dioxide 26 mmol/L (22-29); Chloride 109 mmol/L (96-108); Cholesterol 195 mg/dL (<200); Estimated Glomerular Filt Rate > 60; HDL Cholesterol 51 mg/dL (>40); Potassium 4.0 mmol/L (3.3-5.1); Sodium 141 mmol/L (135-145); Total Protein 6.1 g/dL (6.5-8.0); Triglycerides 48 mg/dL (<150)
--- OUTSIDE RECORDS SUMMARY | 2025-01-10 12:27 | XMS_ITS | Encounter Summary ---
Author Organization [facility] [place] [address] Care Team Providers Care Polymer Specialist Name Role Phone Gerardo Nice MD Primary Care Provider [phone] Encounter Details Date Type Department Care Team (Late st Contact Info) Description 07/29/2024 Lab Requisition [facility] - Main Lab [address] [facility] [place] [address] Gerardo Nice MD 38 [facility] [address] [place], [address] Sepsis, unspecified organism (CMS/HCC V24, CMS/HCC V28) Social History Tobacco Use Types Packs/Day Years Used Date Smoking Tobacco: Former Cigarettes Q uit: 03/29/1984 Smokeless Tobacco: Never Alcohol Use Standard Drinks/Week Comments Yes 0 (1 standard drink = 0.6 oz pure alcohol) reports he drinks a small amount of mead since he makes it Interpersonal Safety Answer Date Record ed Physical Abuse Unrecognized value 07/21/2024 Verbal Abuse Unrecognized value 07/21/2024 Sex and Gender Information Value Date [...] 07/29/2024 6:10 AM EDT Sepsis, unspecified organism ([facility] V24, [facility] V28) COMPREHENSIVE METABOLIC PANEL Routine 07/29/2024 6:10 AM EDT Sepsis, unspecified organism ([facility] V24, [facility] V28) documented in this encounter Results * (ABNORMAL) Comprehensive metabolic panel (07/29/2024 6:10 AM EDT) Sodium 131(L) 133 - 145 mmol/L LAB CHEMISTRY METHOD 07/29/2024 12:11 PM [facility] Potassium 4.2 3.5 - 5.5 mmol/L LAB CHEMISTRY METHOD 07/29/2024 12:11 PM [facility] Chloride 94(L) 96 - 110 mmol/L LAB CHEMISTRY METHOD 07/29/2024 12:11 PM [facility] CO2 28 21 - 32 mmol/L LAB CHEMISTRY METHOD 07/29/2024 12:11 PM [facility] Anion Gap 9 3 - 11 LAB CHEMISTRY METHOD 07/29/2024 12:11 PM [facility] Glucose 232(H) 70 - 100 mg/dL LAB CHEMISTRY METHOD 07/29/2024 12:11 PM [facility] BUN 17 5 - 25 mg/dL LAB CHEMISTRY METHOD 07/29/2024 12:11 PM [facility] Creatinine 0.64(L) 0.70 - 1.30 mg/dL LAB CHEMISTRY METHOD 07/29/2024 12:11 PM [facility] eGFR 108 >=60 mL/min/1. 73m2 LAB CHEMISTRY METHOD 07/29/2024 12:11 PM [facility] Comment:Calculation based on the Chronic Kidney Disease Epidemiology Collaboration (CKD-EPI) equation refit without adjustment for race. BUN/Creatinine Ratio 26.6 LAB CHEMISTRY METHOD 07/29/2024 12:11 PM EDT [facility] Calcium 7.7(L) 8.5 - 10.5 mg/dL LAB CHEMISTRY METHOD 07/29/2024 12:11 PM [facility] AST (SGOT) 47(H) 10 - 42 unit/L LAB CHEMISTRY METHOD 07/29/2024 12:11 PM [facility] ALT (SGPT) 26 10 - 60 unit/L LAB CHEMISTRY METHOD 07/29/2024 12:11 PM [facility] Alkaline Phosphatase 89 42 - 121 unit/L LAB CHEMISTRY METHOD 07/29/2024 12:11 PM [facility] Total Protein 5.6(L) 6.0 - 8.0 g/dL LAB CHEMISTRY METHOD 07/29/2024 12:11 PM [facility] Albumin 1.6(L) 3.2 - 5.0 g/dL LAB CHEMISTRY METHOD 07/29/2024 12:11 PM [facility] Total Bilirubin 5.3(H) 0.0 - 1.4 mg/dL LAB CHEMISTRY METHOD 07/29/2024 12:11 PM [facility] Blood Venous blood specimen / Unknown Venipuncture / Unknown 07/29/2024 6:10 AM EDT 07/29/2024 10:55 AM EDT us Gerardo Nice MD LAB BLOOD ORDERABLES Final Resul t [facility] [address] [place] [address], [place] [phone] * (ABNORMAL) Complete blood count (07/29/2024 6:10 AM EDT) WBC 11.8(H) 4.8 - 10.8 K/mcL LAB HEMETOLOGY METHOD 07/29/2024 11:47 AM [facility] RBC 3.10(L) 4.50 - 5.50 M/mcL LAB HEMETOLOGY METHOD 07/29/2024 11:47 AM [facility] Hemoglobin 9.4(L) 13.5 - 17.5 g/dL LAB HEMETOLOGY METHOD 07/29/2024 11:47 AM [facility] Hematocrit 29.2(L) 42.0 - 54.0 % LAB HEMETOLOGY METHOD 07/29/2024 11:47 AM [facility] MCV 93.9 79.0 - 98.0 FL LAB HEMETOLOGY METHOD 07/29/2024 11:47 AM [facility] MCH 30.2 27.0 - 32.0 pcg LAB HEMETOLOGY METHOD 07/29/2024 11:47 AM [facility] MCHC 32.2 32.0 - 37.0 g/dL LAB HEMETOLOGY METHOD 07/29/2024 11:47 AM [facility] RDW 15.8(H) 11.0 - 15.0 % LAB HEMETOLOGY METHOD 07/29/2024 11:47 AM [facility] Platelets 181 130 - 400 K/[facility] LAB HEMETOLOGY METHOD 07/29/2024 11:47 AM [facility] MPV 11.1(H) 7.0 - 11.0 FL LAB HEMETOLOGY METHOD 07/29/2024 11:47 AM [facility] NRBC 0.0 <1.0 % LAB HEMETOLOGY METHOD 07/29/2024 11:47 AM [facility] NRBC Absolute 0.00 <0.10 K/[facility] LAB HEMETOLOGY METHOD 07/29/2024 11:47 AM EDT [facility] Blood Venous blood specimen / Unknown Venipuncture / Unknown 07/29/2024 6:10 AM EDT 07/29/2024 10:55 AM EDT us Gerardo Nice MD LAB BLOOD ORDERABLES Final Resul t [facility] [address] [place] [address], documented in this encounter Visit Diagnoses Diagnosis Sepsis, unspecified organism (CMS/HCC V24, CMS/HCC V28) documented in this encounter Care Teams Polymer Specialist Relationship Specialty Start Date End Date Gerardo Nice MD [address] [place] [address], [phone] PCP - General Family Medicine 07/29/24 documented as of this encounter
--- OUTSIDE RECORDS SUMMARY | 2025-01-10 12:27 | XMS_ITS | Encounter Summary ---
Author Organization [facility] [place] [address] Care Team Providers Care Mobile Security Specialist Name Role Phone Gerardo Nice MD Primary Care Provider [phone] Encounter Details Date Type Department Care Team (Late st Contact Info) Description 07/31/2024 Lab Requisition [facility] - Main Lab [address] [place] [address] Gerardo Nice MD 38 [facility] [address] [place], [address] Other specified sepsis (CMS/HCC V24, CMS/HCC [...] 07/31/2024 6:08 AM EDT Other specified sepsis ([facility] V24, [facility] V28) CBC AND DIFFERENTIAL Routine 07/31/2024 6:08 AM EDT Other specified sepsis ([facility] V24, [facility] V28) COMPREHENSIVE METABOLIC PANEL Routine 07/31/2024 6:08 AM EDT Other specified sepsis ([facility] V24, [facility] V28) documented in this encounter Results * (ABNORMAL) CBC auto differential (07/31/2024 6:08 AM EDT) WBC 9.4 4.8 - 10.8 K/mcL LAB HEMETOLOGY METHOD 07/31/2024 8:37 AM [facility] RBC 3.20(L) 4.50 - 5.50 M/mcL LAB HEMETOLOGY METHOD 07/31/2024 8:37 AM [facility] Hemoglobin 9.7(L) 13.5 - 17.5 g/dL LAB HEMETOLOGY METHOD 07/31/2024 8:37 AM [facility] Hematocrit 30.1(L) 42.0 - 54.0 % LAB HEMETOLOGY METHOD 07/31/2024 8:37 AM [facility] MCV 94.7 79.0 - 98.0 FL LAB HEMETOLOGY METHOD 07/31/2024 8:37 AM [facility] MCH 30.5 27.0 - 32.0 pcg LAB HEMETOLOGY METHOD 07/31/2024 8:37 AM [facility] MCHC 32.2 32.0 - 37.0 g/dL LAB HEMETOLOGY METHOD 07/31/2024 8:37 AM [facility] RDW 15.6(H) 11.0 - 15.0 % LAB HEMETOLOGY METHOD 07/31/2024 8:37 AM [facility] Platelets 214 130 - 400 K/mcL LAB HEMETOLOGY METHOD 07/31/2024 8:37 AM [facility] MPV 10.9 7.0 - 11.0 FL LAB HEMETOLOGY METHOD 07/31/2024 8:37 AM [facility] NRBC 0.0 <1.0 % LAB HEMETOLOGY METHOD 07/31/2024 8:37 AM [facility] NRBC Absolute 0.00 <0.10 K/mcL LAB HEMETOLOGY METHOD 07/31/2024 8:37 AM [facility] Neutrophils Relative 73.2 % LAB HEMETOLOGY METHOD 07/31/2024 8:37 AM [facility] Lymphocytes Relative 15.2 % LAB HEMETOLOGY METHOD 07/31/2024 8:37 AM [facility] Monocytes Relative 9.8 % LAB HEMETOLOGY METHOD 07/31/2024 8:37 AM [facility] Eosinophils Relative 0.8 % LAB HEMETOLOGY METHOD 07/31/2024 8:37 AM [facility] Basophils Relative 0.6 % LAB HEMETOLOGY METHOD 07/31/2024 8:37 AM [facility] Immature Granulocytes Relative 0.4 % LAB HEMETOLOGY METHOD 07/31/2024 8:37 AM [facility] Neutrophils Absolute 6.90 1.50 - 7.00 K/mcL LAB HEMETOLOGY METHOD 07/31/2024 8:37 AM [facility] Lymphocytes Absolute 1.43 1.00 - 5.00 K/mcL LAB HEMETOLOGY METHOD 07/31/2024 8:37 AM EDT [facility] Monocytes Absolute 0.92 0.20 - 1.00 K/mcL LAB HEMETOLOGY METHOD 07/31/2024 8:37 AM EDT [facility] Eosinophils Absolute 0.08 0.00 - 0.50 K/[facility] LAB HEMETOLOGY METHOD 07/31/2024 8:37 AM EDT [facility] Basophils Absolute 0.06 0.00 - 0.20 K/[facility] LAB HEMETOLOGY METHOD 07/31/2024 8:37 AM EDT [facility] Immature Granulocytes Absolute 0.04(H) 0.00 - 0.03 K/[facility] LAB HEMETOLOGY METHOD 07/31/2024 8:37 AM EDT [facility] Blood Venous blood specimen / Unknown Venipuncture / Unknown 07/31/2024 6:08 AM EDT 07/31/2024 8:14 AM EDT us Gerardo Nice MD LAB BLOOD ORDERABLES Final Resul t [facility] [address] [place] [address], * (ABNORMAL) Comprehensive metabolic panel (07/31/2024 6:08 [...] 11 LAB CHEMISTRY METHOD 07/31/2024 9:15 AM [facility] Glucose 221(H) 70 - 100 mg/dL LAB CHEMISTRY METHOD 07/31/2024 9:15 AM [facility] BUN 13 5 - 25 mg/dL LAB CHEMISTRY METHOD 07/31/2024 9:15 AM [facility] Creatinine 0.54(L) 0.70 - 1.30 mg/dL LAB CHEMISTRY METHOD 07/31/2024 9:15 AM [facility] eGFR 114 >=60 mL/min/1. 73m2 LAB CHEMISTRY METHOD 07/31/2024 9:15 AM [facility] Comment:Calculation based on the Chronic Kidney Disease Epidemiology Collaboration (CKD-EPI) equation refit without adjustment for race. BUN/Creatinine Ratio 24.1 LAB CHEMISTRY METHOD 07/31/2024 9:15 AM [facility] Calcium 7.7(L) 8.5 - 10.5 mg/dL LAB CHEMISTRY METHOD 07/31/2024 9:15 AM [facility] AST (SGOT) 46(H) 10 - 42 unit/L LAB CHEMISTRY METHOD 07/31/2024 9:15 AM [facility] ALT (SGPT) 27 10 - 60 unit/L LAB CHEMISTRY METHOD 07/31/2024 9:15 AM [facility] Alkaline Phosphatase 91 42 - 121 unit/L LAB CHEMISTRY METHOD 07/31/2024 9:15 AM [facility] Total Protein 5.7(L) 6.0 - 8.0 g/dL LAB CHEMISTRY METHOD 07/31/2024 9:15 AM [facility] Albumin 1.5(L) 3.2 - 5.0 g/dL LAB CHEMISTRY METHOD 07/31/2024 9:15 AM [facility] Total Bilirubin 4.7(H) 0.0 - 1.4 mg/dL LAB CHEMISTRY METHOD 07/31/2024 9:15 AM EDT [facility] Blood Venous blood specimen / Unknown Venipuncture / Unknown 07/31/2024 6:08 AM EDT 07/31/2024 8:14 AM EDT us Gerardo Nice MD LAB BLOOD ORDERABLES Final Resul t [facility] [address] [place] [address], [place] [phone] documented in this encounter Visit Diagnoses Diagnosis Other specified sepsis (CMS/HCC V24, CMS/HCC V28) documented in this encounter Care Teams Mobile Security Specialist Relationship Specialty Start Date End Date Gerardo Nice MD [address] [place] [address], [phone] PCP - General Family Medicine 07/29/24 documented as of this encounter
--- OUTSIDE RECORDS SUMMARY | 2025-01-10 12:27 | XMS_ITS | Encounter Summary ---
Author Organization [facility] [place] [address] Care Team Providers Care Phlebotomy Tech Name Role Phone Gerardo Nice MD Primary Care Provider [phone] Encounter Details Date Type Department Care Team (Late st Contact Info) Description 08/10/2024 Lab Requisition [facility] - Main Lab 299 [facility] [place] [address] Gerardo Nice MD 38 [facility] [address] [place], [phone] Diarrhea, unspecified Social History Tobacco Use [...] Antigen Negative Negative 08/10/2024 11:44 AM EDT [facility] C difficile Toxins A+B, EIA Negative Negative 08/10/2024 11:44 AM EDT [facility] Comment:NEGATIVE FOR TOXIN P RODUCING CLOSTRIDIOIDES DIFFICILE, NO ADDITIONAL TESTING IS NECESSARY. Stool Rectum structure / Unknown 08/09/2024 8:00 PM EDT 08/10/2024 9:32 AM EDT us Gerardo Nice MD LAB MICROBIOLOGY - GENERAL ORDER GINA Final Result [facility] [address] [place] [address], documented in this encounter Visit Diagnoses Diagnosis Diarrhea, unspecified documented in this encounter Care Teams Phlebotomy Tech Relationship Specialty Start Date End Date Gerardo Nice MD [address] [place] [address] [address] [place], [phone] PCP - General Family Medicine 07/29/24 documented as of this encounter
--- OUTSIDE RECORDS SUMMARY | 2025-01-10 12:27 | XMS_ITS | Encounter Summary ---
Author Organization [facility] [place] [address] Care Team Providers Care Performance Improvement Analyst Name Role Phone Gerardo Nice MD Primary Care Provider [phone] Encounter Details Date Type Department Care Team (Late st Contact Info) Description 08/03/2024 Lab Requisition [facility] - Main Lab 299 [facility] [place] [address] Gerardo Nice MD 38 [facility] [address] [place], [phone] Unspecified infectious disease Social History Tobacco [...] and culture (08/03/2024 3:00 AM EDT) Specific [place] Urine 1.008 1.003 - 1.030 LAB URINALYSIS [...] - AUTOMATED METHOD 08/03/2024 10:[address] [facility] Bilirubin, Urine Negative Negative LAB URINALYSIS - AUTOMATED METHOD 08/03/2024 10:[address] [facility] Blood, Urine Negative Negative LAB URINALYSIS - AUTOMATED METHOD 08/03/2024 10:[address] [facility] Urine Urine specimen obtained by clean catch procedure / Unknown Non-blood Collection / Unknown 08/03/2024 3:00 AM EDT 08/03/2024 8:26 AM EDT Gerardo Nice MD LAB URINE ORDERABLES Final Resul t [facility] [address] [place] [address], [place] [phone] * Carey urine culture tube (08/03/2024 3:00 AM EDT) Extra Tube Hold for add-ons. 08/03/2024 10:[address] [facility] Comment:Auto resulted. Urine Urine specimen obtained by clean catch procedure / Unknown Non-blood Collection / Unknown 08/03/2024 3:00 AM EDT 08/03/2024 8:26 AM EDT us Gerardo Nice MD LAB URINE ORDERABLES Final Resul t Performing Organization Address City/[facility]/ZIP Co de Phone Number [facility] [address] [place] [address], [place] [phone] documented in this encounter Visit Diagnoses Diagnosis Unspecified infectious disease documented in this encounter Care Teams Performance Improvement Analyst Relationship Specialty Start Date End Date Gerardo Nice MD [address] [place] [address], [phone] PCP - General Family Medicine 07/29/24 documented as of this encounter
--- OUTSIDE RECORDS SUMMARY | 2025-01-10 12:27 | XMS_ITS | Encounter Summary ---
Author Organization [facility] [place] [address] Care Team Providers Care Machine Applicator Cementer Name Role Phone Gerardo Nice MD Primary Care Provider [phone] Encounter Details Date Type Department Care Team (Late st Contact Info) Description 08/03/2024 Lab Requisition [facility] - Main Lab 299 [facility] [place] [address] Gerardo Nice MD 38 [facility] [address] [place], [phone] Unspecified infectious disease Social History Tobacco [...] mmol/L LAB CHEMISTRY METHOD 08/03/2024 10:45 AM [facility] Potassium 4.8 3.5 - 5.5 mmol/L LAB CHEMISTRY METHOD 08/03/2024 10:45 AM [facility] Comment:Hemolysis present Chloride 94(L) 96 - 110 mmol/L LAB CHEMISTRY METHOD 08/03/2024 10:45 AM [facility] CO2 27 21 - 32 mmol/L LAB CHEMISTRY METHOD 08/03/2024 10:45 AM [facility] Anion Gap 8 3 - 11 LAB CHEMISTRY METHOD 08/03/2024 10:45 AM [facility] Glucose 163(H) 70 - 100 mg/dL LAB CHEMISTRY METHOD 08/03/2024 10:45 AM [facility] BUN 14 5 - 25 mg/dL LAB CHEMISTRY METHOD 08/03/2024 10:45 AM [facility] Creatinine 0.68(L) 0.70 - 1.30 mg/dL LAB CHEMISTRY METHOD 08/03/2024 10:45 AM [facility] eGFR 106 >=60 mL/min/1. 73m2 LAB CHEMISTRY METHOD 08/03/2024 10:45 AM [facility] Comment:Calculation based on the Chronic Kidney Disease Epidemiology Collaboration (CKD-EPI) equation refit without adjustment for race. BUN/Creatinine Ratio 20.6 LAB CHEMISTRY METHOD 08/03/2024 10:45 AM [facility] Calcium 8.1(L) 8.5 - 10.5 mg/dL LAB CHEMISTRY METHOD 08/03/2024 10:45 AM EDT [facility] Blood Venous blood specimen / Unknown Venipuncture / Unknown 08/03/2024 5:08 AM EDT 08/03/2024 9:30 AM EDT us Gerardo Nice MD LAB BLOOD ORDERABLES Final Resul t [facility] [address] [place] [address], documented in this encounter Visit Diagnoses Diagnosis Unspecified infectious disease documented in this encounter Care Teams Machine Applicator Cementer Relationship Specialty Start Date End Date Gerardo Nice MD [address] [place] [address], [phone] PCP - General Family Medicine 07/29/24 documented as of this encounter
--- OUTSIDE RECORDS SUMMARY | 2025-01-10 12:27 | XMS_ITS | Clinical Summary ---
Author Organization [facility] Address [address] [place] [address] Care Team Providers Care Senior Actuarial Analyst Name Role Phone Melanie Cummins Primary Care Provider [phone] Allergies No known active allergies Medications Medication [...] Screening (Colonoscopy) 12/03/2008 COVID-19 Vaccine (4 - 2024-2 6 season) 2024 01/28/2021, 06/05/2020, 05/15/2020 Influenza Vaccine (#1) 2024 RSV Adult > 60+ Yrs or (1 - 1-dose 75+ series) 12/03/2038 Hepatitis B Vaccines Aged Out No long er eligible based on patient's age to complete this topic RSV Ped < 20 months Aged Out No longe r eligible based on patient's age to complete this topic Care Teams Senior Actuarial Analyst Relationship Specialty Start Date End Date Melanie Cummins PA PCP - General Physician Heritage Consultant 12/09/21
--- OUTSIDE RECORDS SUMMARY | 2025-01-10 12:27 | XMS_ITS | Encounter Summary ---
Author Organization [facility] [place] [address] Care Team Providers Care Street Cleaner Name Role Phone Gerardo Nice MD Primary Care Provider [phone] Encounter Details Date Type Department Care Team (Late st Contact Info) Description 08/05/2024 Lab Requisition [facility] - Main Lab [address] [facility] [place] [address] Gerardo Nice MD 38 [facility] [address], [phone] Other specified sepsis (CMS/HCC V24, CMS/HCC [...] 08/07/2024 6:14 AM EDT Other specified sepsis ([facility] V24, [facility] V28) CBC AND DIFFERENTIAL Routine 08/07/2024 6:14 AM EDT Other specified sepsis ([facility] V24, [facility] V28) COMPREHENSIVE METABOLIC PANEL Routine 08/07/2024 6:14 AM EDT Other specified sepsis ([facility] V24, [facility] V28) documented in this encounter Results * (ABNORMAL) CBC auto differential (08/07/2024 6:14 AM EDT) WBC 6.6 4.8 - 10.8 K/mcL LAB HEMETOLOGY METHOD 08/07/2024 10:50 AM [facility] LAB RBC 3.40(L) 4.50 - 5.50 M/mcL LAB HEMETOLOGY METHOD 08/07/2024 10:50 AM [facility] LAB Hemoglobin 10.6(L) 13.5 - 17.5 g/dL LAB HEMETOLOGY METHOD 08/07/2024 10:50 AM [facility] LAB Hematocrit 33.1(L) 42.0 - 54.0 % LAB HEMETOLOGY METHOD 08/07/2024 10:50 AM [facility] LAB MCV 96.5 79.0 - 98.0 FL LAB HEMETOLOGY METHOD 08/07/2024 10:50 AM [facility] LAB MCH 30.9 27.0 - 32.0 pcg LAB HEMETOLOGY METHOD 08/07/2024 10:50 AM [facility] LAB MCHC 32.0 32.0 - 37.0 g/dL LAB HEMETOLOGY METHOD 08/07/2024 10:50 AM [facility] LAB RDW 15.4(H) 11.0 - 15.0 % LAB HEMETOLOGY METHOD 08/07/2024 10:50 AM [facility] LAB Platelets 202 130 - 400 K/mcL LAB HEMETOLOGY METHOD 08/07/2024 10:50 AM [facility] LAB MPV 10.6 7.0 - 11.0 FL LAB HEMETOLOGY METHOD 08/07/2024 10:50 AM [facility] LAB NRBC 0.0 <1.0 % LAB HEMETOLOGY METHOD 08/07/2024 10:50 AM [facility] LAB NRBC Absolute 0.00 <0.10 K/mcL LAB HEMETOLOGY METHOD 08/07/2024 10:50 AM [facility] Neutrophils Relative 69.8 % LAB HEMETOLOGY METHOD 08/07/2024 10:50 AM [facility] Lymphocytes Relative 17.1 % LAB HEMETOLOGY METHOD 08/07/2024 10:50 AM [facility] Monocytes Relative 10.2 % LAB HEMETOLOGY METHOD 08/07/2024 10:50 AM [facility] Eosinophils Relative 1.8 % LAB HEMETOLOGY METHOD 08/07/2024 10:50 AM [facility] Basophils Relative 0.5 % LAB HEMETOLOGY METHOD 08/07/2024 10:50 AM [facility] Immature Granulocytes Relative 0.6 % LAB HEMETOLOGY METHOD 08/07/2024 10:50 AM [facility] Neutrophils Absolute 4.57 1.50 - 7.00 K/mcL LAB HEMETOLOGY METHOD 08/07/2024 10:50 AM [facility] Lymphocytes Absolute 1.12 1.00 - 5.00 K/mcL LAB HEMETOLOGY METHOD 08/07/2024 10:50 AM EDT [facility] Monocytes Absolute 0.67 0.20 - 1.00 K/mcL LAB HEMETOLOGY METHOD 08/07/2024 10:50 AM EDT [facility] LAB Eosinophils Absolute 0.12 0.00 - 0.50 K/[facility] LAB HEMETOLOGY METHOD 08/07/2024 10:50 AM EDT [facility] LAB Basophils Absolute 0.03 0.00 - 0.20 K/mcL LAB HEMETOLOGY METHOD 08/07/2024 10:50 AM EDT [facility] LAB Immature Granulocytes Absolute 0.04(H) 0.00 - 0.03 K/[facility] LAB HEMETOLOGY METHOD 08/07/2024 10:50 AM [facility] Blood Venous blood specimen / Unknown Venipuncture / Unknown 08/07/2024 6:14 AM EDT 08/07/2024 10:19 AM EDT us Gerardo Nice MD LAB BLOOD ORDERABLES Final Resul t [facility] [address] [place] [address], * (ABNORMAL) Comprehensive metabolic panel (08/07/2024 6:14 AM EDT) Sodium 132(L) 133 - 145 mmol/L LAB CHEMISTRY METHOD 08/07/2024 11:02 AM T [facility] LAB Potassium 4.8 3.5 - 5.5 mmol/L LAB CHEMISTRY METHOD 08/07/2024 11:02 AM [facility] Chloride 97 96 - 110 mmol/L LAB CHEMISTRY METHOD 08/07/2024 11:02 AM [facility] CO2 25 21 - 32 mmol/L LAB CHEMISTRY METHOD 08/07/2024 11:02 AM [facility] Anion Gap 10 3 - 11 LAB CHEMISTRY METHOD 08/07/2024 11:02 AM [facility] Glucose 134(H) 70 - 100 mg/dL LAB CHEMISTRY METHOD 08/07/2024 11:02 AM [facility] BUN 12 5 - 25 mg/dL LAB CHEMISTRY METHOD 08/07/2024 11:02 AM [facility] Creatinine 0.60(L) 0.70 - 1.30 mg/dL LAB CHEMISTRY METHOD 08/07/2024 11:02 AM [facility] LAB eGFR 111 >=60 mL/min/1. 73m2 LAB CHEMISTRY METHOD 08/07/2024 11:02 AM [facility] LAB Comment:Calculation based on the Chronic Kidney Disease Epidemiology Collaboration (CKD-EPI) equation refit without adjustment for race. BUN/Creatinine Ratio 20.0 LAB CHEMISTRY METHOD 08/07/2024 11:02 AM [facility] Calcium 8.4(L) 8.5 - 10.5 mg/dL LAB CHEMISTRY METHOD 08/07/2024 11:02 AM [facility] LAB AST (SGOT) 49(H) 10 - 42 unit/L LAB CHEMISTRY METHOD 08/07/2024 11:02 AM [facility] LAB ALT (SGPT) 26 10 - 60 unit/L LAB CHEMISTRY METHOD 08/07/2024 11:02 AM [facility] LAB Alkaline Phosphatase 99 42 - 121 unit/L LAB CHEMISTRY METHOD 08/07/2024 11:02 AM [facility] Total Protein 6.8 6.0 - 8.0 g/dL LAB CHEMISTRY METHOD 08/07/2024 11:02 AM [facility] LAB Albumin 1.8(L) 3.2 - 5.0 g/dL LAB CHEMISTRY METHOD 08/07/2024 11:02 AM [facility] Total Bilirubin 3.1(H) 0.0 - 1.4 mg/dL LAB CHEMISTRY METHOD 08/07/2024 11:02 AM EDT [facility] Blood Venous blood specimen / Unknown Venipuncture / Unknown 08/07/2024 6:14 AM EDT 08/07/2024 10:19 AM EDT us Gerardo Nice MD LAB BLOOD ORDERABLES Final Resul t [facility] [address] [place] [address], documented in this encounter Visit Diagnoses Diagnosis Other specified sepsis (CMS/HCC V24, CMS/HCC V28) documented in this encounter Care Teams Street Cleaner Relationship Specialty Start Date End Date Gerardo Nice MD [address] [place] [address] [address], [phone] PCP - General Family Medicine 07/29/24 documented as of this encounter
--- OUTSIDE RECORDS SUMMARY | 2025-01-10 12:28 | XMS_ITS | Encounter Summary ---
Author Organization [facility] [place] [address] Care Team Providers Care Scientific Writer Name Role Phone Gerardo Nice MD Primary Care Provider [phone] Encounter Details Date Type Department Care Team (Late st Contact Info) Description 08/14/[address] [facility] - Main Lab [address] [place] [address] Gerardo Nice MD 38 [facility] [address] [place], [phone] Other specified sepsis (CMS/HCC V24, CMS/HCC [...] 08/14/2024 5:40 AM EDT Other specified sepsis ([facility] V24, [facility] V28) CBC AND DIFFERENTIAL Routine 08/14/2024 5:40 AM EDT Other specified sepsis ([facility] V24, [facility] V28) COMPREHENSIVE METABOLIC PANEL Routine 08/14/2024 5:40 AM EDT Other specified sepsis ([facility] V24, [facility] V28) documented in this encounter Results * (ABNORMAL) CBC auto differential (08/14/2024 5:40 AM EDT) WBC 6.3 4.8 - 10.8 K/mcL LAB HEMETOLOGY METHOD 08/14/2024 12:01 PM [facility] RBC 3.00(L) 4.50 - 5.50 M/mcL LAB HEMETOLOGY METHOD 08/14/2024 12:01 PM [facility] LAB Hemoglobin 9.3(L) 13.5 - 17.5 g/dL LAB HEMETOLOGY METHOD 08/14/2024 12:01 PM [facility] LAB Hematocrit 29.3(L) 42.0 - 54.0 % LAB HEMETOLOGY METHOD 08/14/2024 12:01 PM [facility] LAB MCV 97.0 79.0 - 98.0 FL LAB HEMETOLOGY METHOD 08/14/2024 12:01 PM [facility] LAB MCH 30.8 27.0 - 32.0 pcg LAB HEMETOLOGY METHOD 08/14/2024 12:01 PM [facility] LAB MCHC 31.7(L) 32.0 - 37.0 g/dL LAB HEMETOLOGY METHOD 08/14/2024 12:01 PM [facility] LAB RDW 14.6 11.0 - 15.0 % LAB HEMETOLOGY METHOD 08/14/2024 12:01 PM [facility] LAB Platelets 219 130 - 400 K/mcL LAB HEMETOLOGY METHOD 08/14/2024 12:01 PM [facility] LAB MPV 10.4 7.0 - 11.0 FL LAB HEMETOLOGY METHOD 08/14/2024 12:01 PM [facility] LAB NRBC 0.0 <1.0 % LAB HEMETOLOGY METHOD 08/14/2024 12:01 PM [facility] NRBC Absolute 0.00 <0.10 K/mcL LAB HEMETOLOGY METHOD 08/14/2024 12:01 PM [facility] Neutrophils Relative 59.3 % LAB HEMETOLOGY METHOD 08/14/2024 12:01 PM [facility] Lymphocytes Relative 23.8 % LAB HEMETOLOGY METHOD 08/14/2024 12:01 PM [facility] Monocytes Relative 13.4 % LAB HEMETOLOGY METHOD 08/14/2024 12:01 PM [facility] Eosinophils Relative 2.7 % LAB HEMETOLOGY METHOD 08/14/2024 12:01 PM [facility] Basophils Relative 0.5 % LAB HEMETOLOGY METHOD 08/14/2024 12:01 PM [facility] Immature Granulocytes Relative 0.3 % LAB HEMETOLOGY METHOD 08/14/2024 12:01 PM [facility] Neutrophils Absolute 3.70 1.50 - 7.00 K/mcL LAB HEMETOLOGY METHOD 08/14/2024 12:01 PM [facility] Lymphocytes Absolute 1.49 1.00 - 5.00 K/mcL LAB HEMETOLOGY METHOD 08/14/2024 12:01 PM EDT [facility] Monocytes Absolute 0.84 0.20 - 1.00 K/mcL LAB HEMETOLOGY METHOD 08/14/2024 12:01 PM EDT [facility] LAB Eosinophils Absolute 0.17 0.00 - 0.50 K/mcL LAB HEMETOLOGY METHOD 08/14/2024 12:01 PM EDT [facility] LAB Basophils Absolute 0.03 0.00 - 0.20 K/[facility] LAB HEMETOLOGY METHOD 08/14/2024 12:01 PM EDT [facility] LAB Immature Granulocytes Absolute 0.02 0.00 - 0.03 K/[facility] LAB HEMETOLOGY METHOD 08/14/2024 12:01 PM [facility] Blood Venous blood specimen / Unknown Venipuncture / Unknown 08/14/2024 5:40 AM EDT 08/14/2024 10:55 AM EDT us Gerardo Nice MD LAB BLOOD ORDERABLES Final Resul t [facility] [address] [place] [address], * (ABNORMAL) Comprehensive metabolic panel (08/14/2024 5:40 AM EDT) Sodium 132(L) 133 - 145 mmol/L LAB CHEMISTRY METHOD 08/14/2024 12:52 PM T [facility] Potassium 3.9 3.5 - 5.5 mmol/L LAB CHEMISTRY METHOD 08/14/2024 12:52 PM [facility] Chloride 95(L) 96 - 110 mmol/L LAB CHEMISTRY METHOD 08/14/2024 12:52 PM [facility] CO2 29 21 - 32 mmol/L LAB CHEMISTRY METHOD 08/14/2024 12:52 PM T [facility] Anion Gap 8 3 - 11 LAB CHEMISTRY METHOD 08/14/2024 12:52 PM [facility] Glucose 157(H) 70 - 100 mg/dL LAB CHEMISTRY METHOD 08/14/2024 12:52 PM [facility] BUN 9 5 - 25 mg/dL LAB CHEMISTRY METHOD 08/14/2024 12:52 PM [facility] Creatinine 0.56(L) 0.70 - 1.30 mg/dL LAB CHEMISTRY METHOD 08/14/2024 12:52 PM [facility] LAB eGFR 113 >=60 mL/min/1. 73m2 LAB CHEMISTRY METHOD 08/14/2024 12:52 PM [facility] LAB Comment:Calculation based on the Chronic Kidney Disease Epidemiology Collaboration (CKD-EPI) equation refit without adjustment for race. BUN/Creatinine Ratio 16.1 LAB CHEMISTRY METHOD 08/14/2024 12:52 PM [facility] Calcium 8.3(L) 8.5 - 10.5 mg/dL LAB CHEMISTRY METHOD 08/14/2024 12:52 PM [facility] AST (SGOT) 36 10 - 42 unit/L LAB CHEMISTRY METHOD 08/14/2024 12:52 PM [facility] ALT (SGPT) 21 10 - 60 unit/L LAB CHEMISTRY METHOD 08/14/2024 12:52 PM [facility] Alkaline Phosphatase 93 42 - 121 unit/L LAB CHEMISTRY METHOD 08/14/2024 12:52 PM [facility] Total Protein 6.5 6.0 - 8.0 g/dL LAB CHEMISTRY METHOD 08/14/2024 12:52 PM [facility] Albumin 1.7(L) 3.2 - 5.0 g/dL LAB CHEMISTRY METHOD 08/14/2024 12:52 PM [facility] Total Bilirubin 2.0(H) 0.0 - 1.4 mg/dL LAB CHEMISTRY METHOD 08/14/2024 12:52 PM EDT [facility] Blood Venous blood specimen / Unknown Venipuncture / Unknown 08/14/2024 5:40 AM EDT 08/14/2024 10:55 AM EDT us Gerardo Nice MD LAB BLOOD ORDERABLES Final Resul t [facility] [address] [place] [address], documented in this encounter Visit Diagnoses Diagnosis Other specified sepsis (CMS/HCC V24, CMS/HCC V28) documented in this encounter Care Teams Scientific Writer Relationship Specialty Start Date End Date Gerardo Nice MD [address] [place] [address], [phone] PCP - General Family Medicine 07/29/24 documented as of this encounter
--- OUTSIDE RECORDS SUMMARY | 2025-01-10 12:28 | XMS_ITS | Data Portability ---
Author Organization [facility], Main Office Address [address] [place] [address] [address] [place] [address] Care Team Providers Care Junior Assistant Manager Name Role Phone [facility] OTHER SADA IBANEZ Primary Care Provider [phone] Assessment Encounter Date Assessment Date Assessment LastModified [...] and Address Organization Details Recorded Time Sepsis [id number] Active 2024 Not Available [facility] 18:36:59 Type 2 diabetes mellitus without complicati on 949125575 Active 2024 Not Available [facility] 18:37:00 Low back pain 687415950 Active 2024 Not Available [facility] 16:46:30 Alcoholic cirrhosis 420774649 Active 2024 Not Available [facility] 18:37:02 Hypo-osmol ality and or hyponatrem ia 639849597 Active 2024 Not Available [facility] 18:37:57 Pain of left knee region 839333960717 109 Active 2024 Not Available [facility] 18:38:00 Diffuse large B-cell lymphoma (tiffany/sys temic with skin involvemen t) 256790597 Active 2024 Not Available [facility] 16:46:31 Nerve root disorder 04045998 Active 2024 Not Available [facility] 18:38:11 Morbid obesity 039328560 Active 2024 Not Available [facility] 18:38:12 Acute kidney injury 25709939 Active 2024 Not Available [facility] 16:46:27 Lymphedema 025208840 Active 2024 Not Available [facility] 5 16:45:33 Muscle weakness 92368763 Active 2024 Not Available [facility] 5 16:39:11 Unsteady when standing 051707791 Active 2024 Not Available [facility] 5 16:46:28 Difficulty walking 529217041 Active 2024 Not Available [facility] 5 08:39:34 Edema of lower extremity 195493311 Active 2024 Dk [place] MD [address], [address], [place], [address], [facility] 5 12:05:12 Diffuse large B-cell lymphoma 961450360 Active 2024 Dk [place] MD [address], [address], [place], [address], [facility] 5 12:05:17 Problem Notes None recorded. Medical Equipment None [...] Recorded Time Tdap 08/14/2023 completed Ludin [facility], [facility] 07/31/2024 16:24:48 Tdap 01/29/2021 completed Ludin [facility], [facility] 07/31/2024 16:24:54 influenza, unspecified formulation 01/29/2021 completed Ludin [facility] 07/31/2024 16:25:05 influenza, unspecified formulation 12/11/2021 completed Ludin [facility]of[facility] 07/31/2024 16:25:17 Hep A, unspecified formulation 01/04/2009 completed Ludin [facility] 07/31/2024 16:25:37 Hep A, unspecified formulation 09/17/2009 completed Ludin [facility] 07/31/2024 16:25:41 SARS-COV-2 (COVID-19) vaccine, UNSPECIFIED 05/15/2020 completed Ludin [facility]of[facility] 07/31/2024 16:25:54 SARS-COV-2 (COVID-19) vaccine, UNSPECIFIED 06/05/2020 completed [facility] 07/31/2024 16:25:59 SARS-COV-2 (COVID-19) vaccine, UNSPECIFIED 01/29/2021 completed [facility] 07/31/2024 16:26:04 SARS-COV-2 (COVID-19) vaccine, UNSPECIFIED 12/11/2021 completed [facility] 07/31/2024 16:26:08 Past Encounters Encounter ID Performer Location Encounter Start Date Encounter Closed Date Diagnosis/Indication Diagnosis SNOMED-CT Code Diagnosis ICD10 Code Diagnosis IMO Codes Diagnosis Note [id number] [address] [place], [place] [address] 07/29/2024 09:02:38 08/31/2024 15:39:50 Gram positive sepsis 808397197 A41.89 58499 Strep beta-hemol ytic group B with UNKNOWN source positive 07/20, 07/21; subsequent cultures x 2 negative; neg 2D echomainta in midline RUAcont IV rocpehn (ends 08/04)monito r cbc and fevers Asthenia 78818849 R53.1 41366 admit to PT/OTmonit or progress with therapy Enzyme lev el - finding 684292660 R74.01 703208 in setting of cirrhosis, mild ascites, hypovolemi c hyponatrem iastarted on spironolac tone/lasix inpatient work-up unrevealin g with plans for further care per [facility] GI/Livermo nitor CMPneeds GI f/up Chronic low back pain 27 8426212 M54.42 M54.41 G89.29 51367376 recent MRI negative other than bugling discsstart sched tylenol 650 tidstart oxy 5 q6h prn x 5 daysmonito r pain and tolerance to therapy Type 2 radha betes mellitus 15621737 E11.69 E78.5 7569436 recent A1c 8.9cont home metforminm onitor blood sugars Essential hypertension 48700621 I10 02096 not currently on BP medsmonito r need to start on medication srecently started on diuretic, now on bumex. [id number] KEV GARCIA REDHÉCTOR [address] [place] [address] 08/01/2024 09:22:20 08/08/2024 10:25:04 Gram positive sepsis 344236489 A41.89 26928 bacteremia unknown source/Str ep beta-hemol ytic group B4/24 +Blood cx repeat blood cx 07/22 [id number] echocardio gram negative for any vegetation .CT scan chest and ultrasound abdomen showed cirrhosis and cholelithi asis otherwise no significan t findings.d ischarged on IV therapycon t ceftriaxon e 2 gm until 08/04/24 Asthenia 10233938 R53.1 07732 cont PT/OT eval Type 2 radha betes mellitus 05885937 E11.69 E78.5 4210789 recent A1c 8.9, inpatient use of Lantus on his outpatient metformin Essential hypertension 35198794 I10 05537 stable,not currently on BP medsmonito r need to start on medication srecently started on diuretic, now on bumex. [id number] Dk [place] MD [facility] [address] [place] [address] 08/02/2024 10:52:06 08/10/2024 11:59:12 Morbid obesity 125902859 E66.01 Gram positive sepsis 194 511859 A41.89 28908 Strep beta-hemol ytic group B with UNKNOWN source positive 07/20, 07/21; subsequent cultures x 2 negative; neg 2D echoon recommenda tion from ID, complete IV Rocephin 08/04/2024 Enzyme lev el - finding 496475786 R74.01 760835 in setting of cirrhosis, mild ascites, hypovolemi c hyponatrem iastarted on spironolac tone/lasix inpatient work-up unrevealin g with plans for further care per [facility] GI/Liverre check labs when appropriat e Chronic low back pain 27 2975805 M54.42 M54.41 G89.29 39465037 recent MRI negative other than bugling discsmild exacerbati on likely sec to being in bed; monitor for nowNot unreasonab le to CHECK UA and electrolyt es with use of K-sparing diuretic and torsemide Pain of le ft knee region 3007204235 59035 M25.562 69880035 recent Ortho evaluation , dry tap Type 2 radha betes mellitus 36922075 E11.69 E78.5 5303780 recent A1c 8.9, inpatient use of Lantus on his outpatient metformin Diffuse la rge B-cell lymphoma 863853921 C83.3A 3675412400 in remission >10 yearsresid ual LEFT leg lymphedema Edema of l ower extremity 782513264 R60.0 45149 recent doppler U/S negative. LEFT >>R Essential hypertension 03029364 I10 67425 monitor on new diuretics; normal renal function but may benerif from YANCY-I/ARB Erectile dysfunction 860 300439 E11.69 N52.1 721727 Ejection murmur 90864626 R01.1 0989872 appears to have had a transthora cic echo; continue to monitor; consider REBECCA if decompensa yoandy Asthenia 67234518 R53.1 42039 PT/OT eval For resuscitation 279581 001 Z78.[id number] [place] [address] 08/03/2024 14:37:04 08/08/2024 11:42:50 Low back pain 263684858 M54.50 chronicrec ent MR lumbar spine showed multilevel degenerati ve changeson scheduled tylenol 650 mg TIDcontinu e oxycodone Q4 prn Pain of le ft knee region 0016138565 20374 M25.562 worsening pain most likely due to therapycon t apap and oxycodone Type 2 radha betes mellitus 38333005 E11.9 37281084 recent A1c 8.9no recent bgldiscuss ed with nursingacc ucheck TID with mealsstart lispro SSC coveragemo nitor need to add additional medication tx with lantus in acute care. [id number] [place] [address] 08/08/2024 09:52:21 08/10/2024 11:52:23 Low back pain 797051285 M54.50 stable chronicrec ent MR lumbar spine showed multilevel degenerati ve changeson scheduled tylenol 650 mg TIDcontinu e oxycodone Q4 prn Pain of le ft knee region 1019376874 46887 M25.562 stable today; lying in bedcont apap and oxycodone Type 2 radha betes mellitus 36647498 E11.9 37191290 recent A1c 8.94-5 days bgl mainly mid 200she is without s/sx of hyperglyce miacont accucheck TID with mealscont lispro SSC coverage consider adding metformin for better glucose control.tx with lantus in acute care. [id number] [place] [address] 08/10/2024 12:30:43 08/11/2024 10:58:58 Acute diarrhea 077546383 R19.7 72354 resolvingr eportedly had 12-14 loose stoolsmost likely was given laxatives for previous c/o constipati onper nursing today, stool is soft.stool negative for cdiff. [id number] [place] [address] 08/15/2024 07:51:26 08/17/2024 09:58:52 Acute diarrhea 149970143 R19.7 19273 resolved Low back pain 014083473 M54.50 stablerece nt MR lumbar spine showed multilevel degenerati ve changeson scheduled tylenol 650 mg TIDcontinu e oxycodone Q4 prn Pain of le ft knee region 5830522235 77937 M25.562 stableIncr ease pain after working with therapycon t apap and oxycodone Type 2 radha betes mellitus 78254196 E11.9 37121472 recent A1c 8.9accu-ch ecks mainly in the 200's before mealsasymp tomaticwil l increase metformin from 500 to 750 mg BIDdiscuss ed with nursingcon t accucheck TID with mealscont lispro SSC coveragemo nitor need to add additional medication tx with lantus in acute care. [id number] [place] [address] 08/17/2024 08:42:55 08/25/2024 10:49:27 Low back pain 085040312 M54.50 stablerece nt MR lumbar spine showed multilevel degenerati ve changeson scheduled tylenol 650 mg TIDcontinu e oxycodone Q4 prn Pain of le ft knee region 2520753940 17839 M25.562 stableIncr ease pain after working with therapycon t apap and oxycodone Type 2 radha betes mellitus 26758314 E11.9 60230000 metformin now 750 mg BID- received first dose on 08/15 evening,co nt accucheck TID with mealscont lispro SSC coveragemo nitor need to add additional medication tx with lantus in acute care. [id number] MISBAH [place] [address] 08/23/2024 11:42:25 08/25/2024 13:13:56 Low back pain 678351828 M54.50 stablerece nt MR lumbar spine showed multilevel degenerati ve changeson scheduled tylenol 650 mg TIDcontinu e oxycodone 5 mg q6h prncont salonpas to lower back dailycont flexeril 10 mg q8h prn for spasmsf/up with pcp Pain of le ft knee region 3089695404 91219 M25.562 stablehas pain after working with therapycon t apap and oxycodone as abovef/up with pcprecs to f/up with ortho on dc Type 2 radha betes mellitus 89141420 E11.9 30120922 many sugars still > 200 with increased metformini ncrease to metformin 850 mg bidcont accucheck tid w/ ss lispro coveragef/ up with pcp Gram positive sepsis 194 980093 A41.89 52179 bacteremia unknown source/Str ep beta-hemol ytic group B4/24 +Blood cx repeat blood cx 07/22 negativeco mpleted IV antbx Asthenia 01299259 R53.1 29643 completed PT/OT evalhome with services Essential hypertension 04199227 I10 31627 majority of BP above goaldt h/o cirrhosis and mild tachycardi a with HR often in the low 100 range = bb will help with bothstart coreg 6.25 mg bidmonitor bp bid and repeat labs with pcp Cirrhosis of liver 007 K74.69 0696628 w/ mild asciteson bumex and aldactonem onitor [...] Member ID Jacques Member ID Guarantor Name 09/28/2024 1 [facility] [id number] Martin Alves [id number] Martin Alves 08/08/2024 1 [facility] (MEDICARE REPLACEMENT/A DVANTAGE - PPO) [id number] Martin Alves [id number] Martin Alves Notes Date Note Type Note Provider Name and Address Organization Details Recorded Time 08/08/2024 text/html ROS as noted in the HPI 58 yr old male patient seen for acute rounding visit. Here for rehab for deconditioning and weakness secondary to sepsis bacteremia. Recently started on SSC for diabetes, accuchecks manly mid 200. denies associated sx. currently pain is controlled. SINDIKEV CHANG [address], [address], [place], [address], [facility] 08/09/2024 22:02:29 08/10/2024 text/html ROS as noted in the [facility] 58 yr old male patient seen for acute rounding visit. Per nursing patient having diarrhea, concerned for possible infectious cause due to recent abx use. otherwise he is doing well, he previously had c/o constipation. KEV GARCIA [address], [address], [place], [address], [facility] 08/11/2024 03:12:31 08/15/2024 text/html ROS as noted in the [facility] 58 yr old male patient seen for acute rounding visit.Medically he has been stable, he continues to feel weak but states strength improving with therapy. Reports back pain and left knee pain 4/10 after working with therapy. otherwise pain is controlled with current meds. FS mainly in the 200's, options discussed. KEV GARCIA [address], [address], [place], [address], [employer] 08/15/2024 16:01:02 08/17/2024 text/html ROS as noted in the [facility] 58 yr old male patient seen for [...] for months to years. KEV GARCIA [address], [address], [place], [address], [facility] 08/17/2024 16:29:32 08/23/2024 text/html ROS as noted in the [facility] 58 yr old male patient seen for [...] home with meds and services in place. MISBAH WARNER, SWIMMING COACH-C [address] [place] [address], [address], [place], [address], [facility] 08/23/2024 15:53:58
--- OUTSIDE RECORDS SUMMARY | 2025-01-10 12:28 | XMS_ITS | Encounter Summary ---
Author Organization [facility] Address [address] [place] [address] Phone Care Team Providers Care Machine Assembler Supervisor Name Role Phone Unavailable Primary Care Provider Unavailabl e Encounter Details Date Type Department Care Team (Late st Contact Info) Description 11/21/2024 Results Follow-Up [facility] [address] [place] [address] Yolanda Doll MD [address] [place] [address] Lab Scan Social History Tobacco [...] 11/22/2024 12:47 PM EDT [facility] [place] [facility] * Result Encounter Note - Yolanda Doll MD - 11/21/2024 3:48 PM EDT Pls try to have sed rate added to pts weekly labs. He will be following with us, per call from pt 11/21 documented in this encounter Plan of Treatment Not on file documented as of this encounter Visit Diagnoses Not on filedocumented in this encounter
--- OUTSIDE RECORDS SUMMARY | 2025-01-10 12:28 | XMS_ITS | Encounter Summary ---
Author Organization [facility] [place] [address] Care Team Providers Care Wet Plant Operator Name Role Phone Gerardo Nice MD Primary Care Provider [phone] Encounter Details Date Type Department Care Team (Late st Contact Info) Description 08/25/2024 Lab Requisition [facility] - Main Lab [address] [facility] [place] [address] Gerardo Nice MD [address] [facility] [address] [place], [address] Other specified sepsis (CMS/HCC V24, CMS/HCC [...] V28) documented in this encounter Care Teams Wet Plant Operator Relationship Specialty Start Date End Date Gerardo Nice MD [address] [place] [address], [address] PCP - General Family Medicine 07/29/24 documented as of this encounter
--- OUTSIDE RECORDS SUMMARY | 2025-01-10 12:28 | XMS_ITS | Encounter Summary ---
Author Organization [facility] Address [address] [place] [address] Phone Care Team Providers Care Warp Hanger Name Role Phone Unavailable Primary Care Provider Unavailabl e Encounter Details Date Type Department Care Team (Late st Contact Info) Description 10/18/2024 Scanned Document [facility] [address] [place], [place] [id number] Yolanda Doll MD [address] [place] [address] Social History Tobacco Use Types [...]
--- OUTSIDE RECORDS SUMMARY | 2025-01-10 12:28 | XMS_ITS | Encounter Summary ---
Author Organization [facility] Address [address] [place] [address] Phone Care Team Providers Care Superintendent Colliery Name Role Phone Unavailable Primary Care Provider Unavailabl e Encounter Details Date Type Department Care Team (Late st Contact Info) Description 11/21/2024 Scanned Document [facility] [address] [place], [place] [id number] Yolanda Doll MD [address] [place] [address] Social History Tobacco Use Types [...]
--- OUTSIDE RECORDS SUMMARY | 2025-01-10 12:28 | XMS_ITS | Encounter Summary ---
Author Organization [facility] Address [address] [place] [address] Phone Care Team Providers Care Transfer Machine Operator Name Role Phone Unavailable Primary Care Provider Unavailabl e Encounter Details Date Type Department Care Team (Late st Contact Info) Description 11/29/2024 Scanned Document [facility] [address] [place], [place] [id number] Yolanda Doll MD [address] [place] [address] Social History Tobacco Use Types [...] * Lab Scan (11/29/2024 9:46 AM EDT) us Yolanda Doll MD LAB BLOOD ORDERABLES Liliam l Result documented in this encounter Visit Diagnoses Not on filedocumented in this encounter
--- OUTSIDE RECORDS SUMMARY | 2025-01-10 12:28 | XMS_ITS | Encounter Summary ---
Author Organization [facility] Address [address] [place] [address] Phone Care Team Providers Care Plastic Tile Setter Name Role Phone Unavailable Primary Care Provider Unavailabl e Encounter Details Date Type Department Care Team (Late st Contact Info) Description 11/15/2024 Scanned Document [facility] [address] [place], [place] [id number] Yolanda Doll MD [address] [place] [address] Social History Tobacco Use [...]
--- OUTSIDE RECORDS SUMMARY | 2025-01-10 12:28 | XMS_ITS | Encounter Summary ---
Author Organization [facility] Address [address] [place] [address] Phone Care Team Providers Care Gas Plant Technician Name Role Phone Unavailable Primary Care Provider Unavailabl e Encounter Details Date Type Department Care Team (Late st Contact Info) Description 10/03/2024 Scanned Document [facility] [address] [place], [place] [id number] Yolanda Doll MD [address] [place] [address] Social History Tobacco Use Types [...] * Lab Scan (10/02/2024 10:53 AM EDT) us Yolanda Doll MD LAB BLOOD ORDERABLES Liliam l Result documented in this encounter Visit Diagnoses Not on filedocumented in this encounter
--- OUTSIDE RECORDS SUMMARY | 2025-01-10 12:28 | XMS_ITS | Clinical Summary ---
Author Organization [facility] [address] Address [address], [address] [place] [address] Care Team Providers Care Heater Helper Forge Name Role Phone Unavailable Primary Care Provider Unavailabl e Medications aspirin 81 mg EC delayed release tablet Take 1 tablet (81 mg total) by mouth daily. Active carvediloL (COREG) 3.125 mg Immediate Release tablet Take 1 tablet (3.125 mg total) by mouth 2 (two) times daily with breakfast and dinner. Active cholecalciferol , vitamin D3, 25 mcg (1,000 unit) tablet Take 1 tablet (1,000 Units total) by mouth daily. Active cyclobenzaprine (FLEXERIL) 10 mg tablet Take 1 tablet (10 mg total) by mouth 3 (three) times daily as needed for muscle spasms. Active lidocaine (LIDODERM) 5 % Place 1 patch onto the skin every 24 hours. Remove & Discard patch within 12 hours or as directed by Active metFORMIN (GLUCOPHAGE) 500 mg Immediate Release tablet Take 1 tablet (500 mg total) by mouth 2 (two) times daily with breakfast and dinner. Active potassium chloride (KLOR-CON) 20 mEq packet Take 2 packets (40 mEq total) by mouth daily. Active cefTRIAXone 2 gram SolR Inject 2 g into the vein every 12 (twelve) hours. Active Active Problems No known active problems Encounters Date Type Department Care Team Description 2024 6:00 PM EDT Follow Up [facility] [address] [place], [place] [id number] Yolanda Doll MD Epidural abscess, L2-L5 (HC CODE) (Primary Dx); Acute osteomyelitis of lumbar spine (HC Code) ; Bacteremia due to group B Streptococcus; Hepatic cirrhosis, unspecified hepatic cirrhosis type, unspecified whether ascites present (HC Code) 2024 Travel 12/01/2024 Scanned Document [facility] [address] [place] [address] Yolanda Doll MD 11/29/2024 Scanned Document [facility] [address] [place] [address] Yolanda Doll MD 11/21/2024 Results Follow-Up [facility] [address] [place] [address] Yolanda Doll MD Lab Scan 11/21/2024 Telephone [facility] [address] [place] [address] Wen Mohr RN Other 11/21/2024 Scanned Document [facility] [address] [place] [address] Yolanda Doll MD 11/15/2024 Results Follow-Up [facility] [address] [place] [address] Yolanda Doll MD Lab Scan 11/15/2024 Scanned Document [facility] [address] [place] [address], [place] [address] Yolanda Doll MD 10/19/2024 Scanned Document [facility] [address] [place] [address] Yolanda Doll MD 10/18/2024 Scanned Document [facility] [address] [place] [address] Yolanda Doll MD 10/11/2024 Scanned Document [facility] [address] [place] [address] Yolanda Doll MD from Last 3 Months Social History Tobacco Use Types Packs/Day Years Used Date Smoking Tobacco: Never Smokeless Tobacco: Never Tobacco Cessation:Counseling Given: Not Answered Alcohol Use Standard Drinks/Week Comments Not Currently 0 (1 standard drink = 0.6 oz pur e alcohol) Sex and Gender Information Value Date Recorded Sex Assigned at Not on file Legal Sex Male 4:15 PM EDT Gender Identity Not on file Sexual Orientation Not on file Last Filed Vital Signs Vital Sign Reading Time Taken Comments Blood Pressure 130/70 2024 6:29 PM EDT Pulse 76 2024 6:29 PM EDT Temperature 36.6 C (97.8 F) 2024 6:29 PM EDT Respiratory Rate - - Oxygen Saturation 100% 2024 6:29 PM EDT Inhaled Oxygen Concentration - - Weight 128.8 kg (284 lb) 2024 6:29 PM EDT Height - - Body Mass Index - - Plan of Treatment Health Maintenance Due Date Last Done Comments HIV screening 12/03/1976 Hepatitis C screening 12/03/1981 Pneumococcal Vaccine (50+ years) (1 of 2 - PCV) 12/03/1982 Tetanus adult (Td q 10,TDAP once) 1983 Lipid disorder screening 2003 Colon cancer screening, Colonoscopy 12/03/2008 Diabetes screening 12/03/2008 Shingles vaccine (Shingrix) (1 of 2 - Shingrix (RZV) 2 Dose Standard Series) 12/03/2013 Influenza vaccine 10/27/2024 Covid-19 vaccine series ( season) 2024 12/11/2021, 01/29/2021, 01/28/2021, Additional history exists RSV Immunization (1 - 1-dose 75+ series) 12/03/2038 Meningococcal B Vaccine Aged Out No l onger eligible based on patient's age to complete this topic Meningococcal Vaccine Aged Out No pauline dana eligible based on patient's age to complete this topic Procedures Procedure Name Priority Date/Time Associated Diagnosis Comments LAB SCAN Routine 12/01/2024 9:30 AM EDT LAB SCAN Routine 11/29/2024 9:46 AM EDT LAB SCAN Routine 11/20/2024 1:21 PM EDT LAB SCAN Routine 11/15/2024 9:19 AM EDT from Last 3 Months Results * Lab Scan (12/01/2024 9:30 AM EDT) Only the most recent of4 resultswithin the time period is included. Yolanda Doll MD LAB BLOOD ORDERABLES Liliam l Result from Last [address] [place] [address] [place] [address]
--- OUTSIDE RECORDS SUMMARY | 2025-01-10 12:28 | XMS_ITS | Encounter Summary ---
Author Organization [facility] Address [address] [place] [address] Phone Care Team Providers Care Scrap Drop Operator Name Role Phone Unavailable Primary Care Provider Unavailabl e Encounter Details Date Type Department Care Team (Late st Contact Info) Description 10/11/2024 Scanned Document [facility] [address] [place], [place] [phone] Yolanda Doll MD [address] [place] [address] Social History Tobacco Use Types [...]
--- OUTSIDE RECORDS SUMMARY | 2025-01-10 12:28 | XMS_ITS | Encounter Summary ---
Author Organization [facility] [place] [address] Care Team Providers Care Grain Processor Name Role Phone Gerardo Nice MD Primary Care Provider [phone] Encounter Details Date Type Department Care Team (Late st Contact Info) Description 08/21/2024 Lab Requisition [facility] - Main Lab [address] [place] [address] Gerardo Nice MD [address] [facility] [address] [place], [address] Other specified sepsis (CMS/HCC V24, CMS/HCC [...] 08/22/2024 6:17 AM EDT Other specified sepsis ([facility] V24, [facility] V28) CBC AND DIFFERENTIAL Routine 08/22/2024 6:17 AM EDT Other specified sepsis ([facility] V24, [facility] V28) COMPREHENSIVE METABOLIC PANEL Routine 08/22/2024 6:17 AM EDT Other specified sepsis ([facility] V24, [facility] V28) documented in this encounter Results * (ABNORMAL) CBC auto differential (08/22/2024 6:17 AM EDT) WBC 5.9 4.8 - 10.8 K/mcL LAB HEMETOLOGY METHOD 08/22/2024 11:12 AM [facility] RBC 3.10(L) 4.50 - 5.50 M/mcL LAB HEMETOLOGY METHOD 08/22/2024 11:12 AM [facility] Hemoglobin 9.8(L) 13.5 - 17.5 g/dL LAB HEMETOLOGY METHOD 08/22/2024 11:12 AM [facility] Hematocrit 30.1(L) 42.0 - 54.0 % LAB HEMETOLOGY METHOD 08/22/2024 11:12 AM [facility] MCV 96.2 79.0 - 98.0 FL LAB HEMETOLOGY METHOD 08/22/2024 11:12 AM [facility] MCH 31.3 27.0 - 32.0 pcg LAB HEMETOLOGY METHOD 08/22/2024 11:12 AM [facility] MCHC 32.6 32.0 - 37.0 g/dL LAB HEMETOLOGY METHOD 08/22/2024 11:12 AM [facility] RDW 14.2 11.0 - 15.0 % LAB HEMETOLOGY METHOD 08/22/2024 11:12 AM [facility] Platelets 213 130 - 400 K/mcL LAB HEMETOLOGY METHOD 08/22/2024 11:12 AM [facility] MPV 10.6 7.0 - 11.0 FL LAB HEMETOLOGY METHOD 08/22/2024 11:12 AM [facility] NRBC 0.0 <1.0 % LAB HEMETOLOGY METHOD 08/22/2024 11:12 AM [facility] NRBC Absolute 0.00 <0.10 K/mcL LAB HEMETOLOGY METHOD 08/22/2024 11:12 AM [facility] Neutrophils Relative 64.0 % LAB HEMETOLOGY METHOD 08/22/2024 11:12 AM [facility] Lymphocytes Relative 21.1 % LAB HEMETOLOGY METHOD 08/22/2024 11:12 AM [facility] Monocytes Relative 11.7 % LAB HEMETOLOGY METHOD 08/22/2024 11:12 AM [facility] Eosinophils Relative 2.2 % LAB HEMETOLOGY METHOD 08/22/2024 11:12 AM [facility] Basophils Relative 0.7 % LAB HEMETOLOGY METHOD 08/22/2024 11:12 AM [facility] Immature Granulocytes Relative 0.3 % LAB HEMETOLOGY METHOD 08/22/2024 11:12 AM [facility] Neutrophils Absolute 3.79 1.50 - 7.00 K/mcL LAB HEMETOLOGY METHOD 08/22/2024 11:12 AM [facility] Lymphocytes Absolute 1.25 1.00 - 5.00 K/mcL LAB HEMETOLOGY METHOD 08/22/2024 11:12 AM EDT [facility] Monocytes Absolute 0.69 0.20 - 1.00 K/[facility] LAB HEMETOLOGY METHOD 08/22/2024 11:12 AM EDT [facility] Eosinophils Absolute 0.13 0.00 - 0.50 K/[facility] LAB HEMETOLOGY METHOD 08/22/2024 11:12 AM EDT [facility] Basophils Absolute 0.04 0.00 - 0.20 K/[facility] LAB HEMETOLOGY METHOD 08/22/2024 11:12 AM EDT [facility] Immature Granulocytes Absolute 0.02 0.00 - 0.03 K/[facility] LAB HEMETOLOGY METHOD 08/22/2024 11:12 AM [facility] Blood Venous blood specimen / Unknown Venipuncture / Unknown 08/22/2024 6:17 AM EDT 08/22/2024 10:16 AM EDT us Gerardo Nice MD LAB BLOOD ORDERABLES Final Resul t [facility] [address] [place] [address], * (ABNORMAL) Comprehensive metabolic panel (08/22/2024 6:17 AM EDT) Sodium 133 133 - 145 mmol/L LAB CHEMISTRY METHOD 08/22/2024 12:11 PM [facility] Potassium 3.6 3.5 - 5.5 mmol/L LAB CHEMISTRY METHOD 08/22/2024 12:11 PM [facility] Chloride 93(L) 96 - 110 mmol/L LAB CHEMISTRY METHOD 08/22/2024 12:11 PM [facility] CO2 30 21 - 32 mmol/L LAB CHEMISTRY METHOD 08/22/2024 12:11 PM [facility] Anion Gap 10 3 - 11 LAB CHEMISTRY METHOD 08/22/2024 12:11 PM [facility] Glucose 222(H) 70 - 100 mg/dL LAB CHEMISTRY METHOD 08/22/2024 12:11 PM [facility] BUN 11 5 - 25 mg/dL LAB CHEMISTRY METHOD 08/22/2024 12:11 PM [facility] Creatinine 0.65(L) 0.70 - 1.30 mg/dL LAB CHEMISTRY METHOD 08/22/2024 12:11 PM [facility] eGFR 108 >=60 mL/min/1. 73m2 LAB CHEMISTRY METHOD 08/22/2024 12:11 PM [facility] Comment:Calculation based on the Chronic Kidney Disease Epidemiology Collaboration (CKD-EPI) equation refit without adjustment for race. BUN/Creatinine Ratio 16.9 LAB CHEMISTRY METHOD 08/22/2024 12:11 PM [facility] Calcium 8.3(L) 8.5 - 10.5 mg/dL LAB CHEMISTRY METHOD 08/22/2024 12:11 PM [facility] AST (SGOT) 32 10 - 42 unit/L LAB CHEMISTRY METHOD 08/22/2024 12:11 PM [facility] ALT (SGPT) 17 10 - 60 unit/L LAB CHEMISTRY METHOD 08/22/2024 12:11 PM [facility] Alkaline Phosphatase 88 42 - 121 unit/L LAB CHEMISTRY METHOD 08/22/2024 12:11 PM [facility] Total Protein 6.6 6.0 - 8.0 g/dL LAB CHEMISTRY METHOD 08/22/2024 12:11 PM [facility] Albumin 1.8(L) 3.2 - 5.0 g/dL LAB CHEMISTRY METHOD 08/22/2024 12:11 PM [facility] Total Bilirubin 1.7(H) 0.0 - 1.4 mg/dL LAB CHEMISTRY METHOD 08/22/2024 12:11 PM EDT [facility] Blood Venous blood specimen / Unknown Venipuncture / Unknown 08/22/2024 6:17 AM EDT 08/22/2024 10:16 AM EDT us Gerardo Nice MD LAB BLOOD ORDERABLES Final Resul t [facility] [address] [place] [address], documented in this encounter Visit Diagnoses Diagnosis Other specified sepsis (CMS/HCC V24, CMS/HCC V28) documented in this encounter Care Teams Grain Processor Relationship Specialty Start Date End Date Gerardo Nice MD [address] [place] [address], [phone] PCP - General Family Medicine 07/29/24 documented as of this encounter
--- OUTSIDE RECORDS SUMMARY | 2025-01-10 12:28 | XMS_ITS | Encounter Summary ---
Author Organization [facility] Address [address] [place] [address] Phone Care Team Providers Care Machine Tool Rebuilder Name Role Phone Unavailable Primary Care Provider Unavailabl e Encounter Details Date Type Department Care Team (Late st Contact Info) Description 09/07/2024 Scanned Document [facility] [address] [place], [place] [id number] Yolanda Doll MD [address] [place] [address] Social History Tobacco Use Types [...]
--- OUTSIDE RECORDS SUMMARY | 2025-01-10 12:28 | XMS_ITS | Encounter Summary ---
Author Organization [facility] Address [address] [place] [address] Phone Care Team Providers Care Supervisor Microfilm Duplicating Unit Name Role Phone Unavailable Primary Care Provider Unavailabl e Encounter Details Date Type Department Care Team (Late st Contact Info) Description 11/15/2024 Results Follow-Up [facility] [address] [place] [address] Yolanda Doll MD [address] [place] [address] Lab Scan Social History Tobacco [...] they wantt o f/u with ID from [facility] will call if they decide to [...]
--- OUTSIDE RECORDS SUMMARY | 2025-01-10 12:28 | XMS_ITS | Encounter Summary ---
Author Organization [facility] Address [address] [place] [address] Phone Care Team Providers Care Upper Cutter Machine Name Role Phone Unavailable Primary Care Provider Unavailabl e Encounter Details Date Type Department Care Team (Late st Contact Info) Description 12/01/2024 Scanned Document [facility] [address] [place], [place] [id number] Yolanda Doll MD [address] [place] [address] Social History Tobacco Use Types [...] LAB SCAN Routine 12/01/2024 9:30 AM EDT documented in this encounter Results * Lab Scan (12/01/2024 9:30 AM EDT) us Yolanda Doll MD LAB BLOOD ORDERABLES Liliam l Result documented in this encounter Visit Diagnoses Not on filedocumented in this encounter
--- OUTSIDE RECORDS SUMMARY | 2025-01-10 12:28 | XMS_ITS | Clinical Summary ---
Author Organization [facility] Address [address] [place] [address] Phone Care Team Providers Care Diplomatic Courier Name Role Phone Gerardo Nice MD Primary Care Provider [phone] Allergies No known active allergies Medications cyclobenzaprine [...] 09/06/2024 Other cirrhosis of liver (CMS/HCC V24, [facility]/HCC V 28) 09/06/2024 Type 2 diabetes mellitus wit hout complication, without long-term current use of insulin (CMS/HCC V24, [facility]/HCC V28) 09/06/2024 Sepsis (CMS/HCC V24, [facility]/HCC V28) 07/20/2024 Large cell lymphoma (CMS/HCC V24, [facility]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 10/2008 Morbid obesity (CMS/HCC V24, [facility] V28) 2008 Elevated blood pressure read ing without diagnosis of hypertension 08/24/2008 Surgical History Surgery Date Site/Laterality Comments ROTATOR CUFF REPAIR PROCEDURE: HISTORICAL ROTATOR CUFF REPAIR; COMMENT: bilateral COLONOSCOPY 09/2009 PROCEDURE: IN COLONOSCOPY FLX DX W/COLLJ SPEC WHEN PFRMD; COMMENT: Up to cecum, good preparation, 2 small polyps removed:tubular adenoma/hyperplastic, diverticulosis Medical History Medical History Date Comments Morbid obesity (CMS/HCC V24, [facility]/HCC V28) 08/24/2008 DX:Morbid obesity (HCC) 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 V24, CMS/HCC V28) DX: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 (HCC) Family History Relation Name Status Comments Father Alive low blood press ure, hyperlipidemia, [place] at age 65, hemochromatosis Mother Alive obesity, [...] Health Maintenance Due Date Last Done Comments Colorectal Cancer Screening: Colonoscopy 1963 Diabetes: Annual Foot Exam 12/03/1973 Diabetes: Annual Retina Eye Exam 12/03/1973 Pneumococcal Vaccine: 50+ Years (1 of 2 - PCV) 12/03/1982 Zoster Vaccines (1 of 2) 12/03/1982 RSV Immunization Adult Patients (1 - Risk 50-74 years 1-dose series) 12/03/2013 Cholesterol Screening (Lipid Panel) 03/07/2022 HIV Screening 03/07/2022 Social Influencers of Health Screening 03/07/2022 Hepatitis B Vaccines (1 of 3 - Risk 3-dose series) 2023 Depression Screening 03/29/2024 Diabetes: Annual [...] 08/22/2024 6:17 AM EDT Other specified sepsis ([facility] V24, [facility] V28) HEPATITIS PANEL, ACUTE WITH REFLEX TO CONFIRMATION Add-On 07/23/2024 6:55 AM EDT HEMOGLOBIN A1C Add-On 07/20/2024 10:19 AM EDT from Last 3 Months or Most Recently Relevant to Health Maintenance Results * Hepatitis panel, acute with reflex to confirmation (07/23/2024 6:55 AM EDT) Hepatitis B Surface Ag Negative Negative LAB CHEMISTRY METHOD 07/24/2024 11:14 PM EDT [facility] Hepatitis A Antibody IgM Negative Negative LAB CHEMISTRY METHOD 07/24/2024 11:14 PM EDT [facility] Hep B Core IgM Negative Negative LAB CHEMISTRY METHOD 07/24/2024 11:14 PM EDT [facility] Hepatitis C Antibody Negative Negative LAB CHEMISTRY METHOD 07/24/2024 11:14 PM EDT [facility] Blood Venous blood specimen / Unknown Venipuncture / Unknown 07/23/2024 6:55 AM EDT 07/23/2024 7:02 AM EDT Ivan Lewis MD LAB BLOOD ORDERABLE S Final Result Performing Organization Address [facility]/ZIP Co de Phone Number [facility] [address] [place] [address], [place] [phone] * (ABNORMAL) Hemoglobin A1c (07/20/2024 10:19 AM EDT) Hemoglobin A1C 8.9(H) <6.5 % LAB CHEMISTRY METHOD 07/21/2024 10:49 AM EDT [facility] Mean Bld Glu Estim. 209 mg/dL LAB CHEMISTRY METHOD 07/21/2024 10:49 AM EDT [facility] Blood Venous blood specimen / Unknown Venipuncture / Unknown 07/20/2024 10:19 AM EDT 07/20/2024 10:44 AM EDT us Cisco Mcneil MD LAB BLOOD ORDERABLES Final Result [facility] [address] [place] [address], [place] [phone] from Last 3 Months or Most Recently Relevant to Health Maintenance Insurance [facility] Advance Directives Documents on File Type Date Recorded Patient Welfare Centre Manager Expl anation Advance Directives and Living Will 07/24/2024 11:51 AM Emily Alves Health Care Proxy * Full Code [...] Name Relationship Healthcare Agent Relationship Communication Emily Shook Health Care Agent [phone] (Mobile ) Gustavo Joselyn Brother First Alternate Health Care Agent Care Teams Diplomatic Courier Relationship Specialty Start Date End Date Gerardo Nice MD [address] [place] [address], [phone] PCP - General Family Medicine 07/29/24
--- OUTSIDE RECORDS SUMMARY | 2025-01-10 12:28 | XMS_ITS | Encounter Summary ---
Author Organization [facility] Address [address] [place] [address] Phone Care Team Providers Care Associate Media Planner Name Role Phone Unavailable Primary Care Provider Unavailabl e Encounter Details Date Type Department Care Team (Late st Contact Info) Description 10/19/2024 Scanned Document [facility] [address] [place], [place] [id number] Yolanda Doll MD [address] [place] [address] Social History Tobacco Use Types [...]
--- OUTSIDE RECORDS SUMMARY | 2025-01-10 12:28 | XMS_ITS | Encounter Summary ---
Author Organization [facility] [place] [address] Care Team Providers Care Laundry Agent Name Role Phone Gerardo Nice MD Primary Care Provider [phone] Encounter Details Date Type Department Care Team (Late st Contact Info) Description 08/10/2024 Lab Requisition [facility] - Main Lab [address] [facility] [place] [address] Gerardo Nice MD [address] [facility] [address] [place], [address] Other specified sepsis (CMS/HCC V24, CMS/[facility] V28); Type 2 diabetes mellitus without complications [...] 08/10/2024 5:21 AM EDT Other specified sepsis ([facility] V24, [facility] V28) Type 2 diabetes mellitus without complications ([facility] [place], [facility] V28) BASIC METABOLIC PANEL Routine 08/10/2024 5:21 AM EDT Other specified sepsis ([facility] V24, [facility] V28) Type 2 diabetes mellitus without complications ([facility] V24, [facility] V28) documented in this encounter Results * (ABNORMAL) Basic metabolic panel (08/10/2024 5:21 AM EDT) Sodium 135 133 - 145 mmol/L LAB CHEMISTRY METHOD 08/10/2024 10:40 AM [facility] Potassium 4.2 3.5 - 5.5 mmol/L LAB CHEMISTRY METHOD 08/10/2024 10:40 AM [facility] Chloride 99 96 - 110 mmol/L LAB CHEMISTRY METHOD 08/10/2024 10:40 AM [facility] CO2 28 21 - 32 mmol/L LAB CHEMISTRY METHOD 08/10/2024 10:40 AM [facility] Anion Gap 8 3 - 11 LAB CHEMISTRY METHOD 08/10/2024 10:40 AM [facility] Glucose 175(H) 70 - 100 mg/dL LAB CHEMISTRY METHOD 08/10/2024 10:40 AM [facility] BUN 9 5 - 25 mg/dL LAB CHEMISTRY METHOD 08/10/2024 10:40 AM [facility] Creatinine 0.48(L) 0.70 - 1.30 mg/dL LAB CHEMISTRY METHOD 08/10/2024 10:40 AM EDT [facility] eGFR 118 >=60 mL/min/1. 73m2 LAB CHEMISTRY METHOD 08/10/2024 10:40 AM EDT [facility] Comment:Calculation based on the Chronic Kidney Disease Epidemiology Collaboration (CKD-EPI) equation refit without adjustment for race. BUN/Creatinine Ratio 18.8 LAB CHEMISTRY METHOD 08/10/2024 10:40 AM EDT [facility] Calcium 8.3(L) 8.5 - 10.5 mg/dL LAB CHEMISTRY METHOD 08/10/2024 10:40 AM EDT [facility] Blood Venous blood specimen / Unknown Venipuncture / Unknown 08/10/2024 5:21 AM EDT 08/10/2024 9:44 AM EDT us Gerardo Nice MD LAB BLOOD ORDERABLES Final Resul t [facility] [address] [place] [address], * (ABNORMAL) Complete blood count (08/10/2024 5:21 AM EDT) WBC 6.0 4.8 - 10.8 K/mcL LAB HEMETOLOGY METHOD 08/10/2024 10:25 AM T [facility] RBC 2.90(L) 4.50 - 5.50 M/mcL LAB HEMETOLOGY METHOD 08/10/2024 10:25 AM EDT [facility] Hemoglobin 9.1(L) 13.5 - 17.5 g/dL LAB HEMETOLOGY METHOD 08/10/2024 10:25 AM EDT [facility] Hematocrit 28.5(L) 42.0 - 54.0 % LAB HEMETOLOGY METHOD 08/10/2024 10:25 AM EDT [facility] MCV 96.9 79.0 - 98.0 FL LAB HEMETOLOGY METHOD 08/10/2024 10:25 AM EDT [facility] MCH 31.0 27.0 - 32.0 pcg LAB HEMETOLOGY METHOD 08/10/2024 10:25 AM EDT [facility] MCHC 31.9(L) 32.0 - 37.0 g/dL LAB HEMETOLOGY METHOD 08/10/2024 10:25 AM EDT [facility] RDW 14.9 11.0 - 15.0 % LAB HEMETOLOGY METHOD 08/10/2024 10:25 AM EDT [facility] Platelets 185 130 - 400 K/mcL LAB HEMETOLOGY METHOD 08/10/2024 10:25 AM EDT [facility] MPV 10.6 7.0 - 11.0 FL LAB HEMETOLOGY METHOD 08/10/2024 10:25 AM EDT [facility] NRBC 0.0 <1.0 % LAB HEMETOLOGY METHOD 08/10/2024 10:25 AM EDT [facility] NRBC Absolute 0.00 <0.10 K/mcL LAB HEMETOLOGY METHOD 08/10/2024 10:25 AM EDT [facility] Blood Venous blood specimen / Unknown Venipuncture / Unknown 08/10/2024 5:21 AM EDT 08/10/2024 9:44 AM EDT us Gerardo Nice MD LAB BLOOD ORDERABLES Final Resul t [facility] [address] [place] [address], documented in this encounter Visit Diagnoses Diagnosis Other specified sepsis (CMS/HCC V24, CMS/HCC V28) Type 2 diabetes mellitus without complications (CMS/HCC V24, CMS/HCC V28) documented in this encounter Care Teams Laundry Agent Relationship Specialty Start Date End Date Gerardo Nice MD [address] [place] [address] [place], [address] PCP - General Family Medicine 07/29/24 documented as of this encounter
--- OUTSIDE RECORDS SUMMARY | 2025-01-10 12:29 | XMS_ITS | Clinical Summary ---
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 5 Active insulin lispro (HumaLOG KWIKPEN) 100 UNIT/ML [...] 2 (two) times a day. Active cholecalciferol (CHOLECALCIFEROL ) 25 MCG (1000 UT) tablet Take 1 tablet (1,000 Units total) by mouth daily. Active multivitamin with minerals Tab tablet Take 1 tablet by mouth daily. Active senna-docusate (sennosides-docu sate sodium) 8.6-50 MG Take 2 tablets by [...] severe pain. Max Daily Amount: 20 mg 5 Active polyethylene glycol (miraLAx) 17 g packetIndication s:Drug-induced constipation Take 1 packet (17 g total) by mouth daily. 5 packet 5 Active senna-docusate (SENNA-S) 8.6-50 MGIndications:Dr ug-induced constipation Take 1 tablet by mouth daily. 5 tablet 5 Active Additional Information Patient not taking.Reported on 11/20/2024 spironolactone (ALDACTONE) 50 MG tabletIndication s:Chronic anemia Take 1 tablet (50 mg total) by mouth daily. 30 tablet 5 Active carvedilol (COREG) 3.125 MG tabletIndication s:Chronic anemia Take 1 tablet (3.125 mg total) by mouth 2 (two) times a day with meals. 60 tablet 5 Active furosemide (LASIX) 20 MG tabletIndication s:Chronic anemia Take 1 tablet (20 mg total) by mouth daily. 30 tablet 5 Active rifAXIMin (XIFAXAN) 550 MG tabletIndication s:Chronic anemia Take 1 tablet (550 mg total) by mouth every 12 (twelve) hours around the clock. 60 tablet 5 Active thiamine mononitrate (VITAMIN B-1) 100 MG tabletIndication s:Chronic anemia Take 1 tablet (100 mg total) by mouth daily. 30 tablet 5 Active Additional Information Patient not taking.Reported on 11/20/2024 zinc sulfate (ZINCATE) 220 mg capsuleIndicatio ns:Chronic anemia Take 1 capsule (220 mg total) by mouth daily. 9 capsule Active Additional Information Patient not taking.Reported on 11/20/2024 aspirin 81 MG chewable tabletIndication s:Chronic anemia Chew 1 tablet (81 mg total) daily. 30 tablet 2 5 02/07/20 Active Additional Information Patient not taking.Reported on 11/20/2024 potassium chloride (KLOR-CON M20) 20 MEQ tabletIndication s:Weakness Take 2 tablets (40 mEq total) by mouth nightly. Swallow whole, do not crush. Take with food 60 tablet 5 Active Active Problems Problem Noted Date Diagnosed [...] CBC, CMP, ESR, CRP and fax to [phone] Assessment & Plan (11/05/2024 1:58 PM EDT): Recent L4-L5 osteomyelitis epidural abscess. Previous admission s/p L3 lumbar decompression and fusion 10/12 Continue IV Rocephin until 11/23 per ID recommendations ID following; Obtain q. Rickey CBC, CMP, ESR, CRP and fax to [phone] Assessment & Plan (11/04/2024 1:32 PM EDT): Recent L4-L5 osteomyelitis epidural abscess. Previous admission s/p L3 lumbar decompression and fusion 10/12 Continue IV Rocephin until 11/23 ID following; Obtain q. Wednesday CBC, CMP, ESR, CRP and fax to [phone] Assessment & Plan (11/03/2024 4:34 PM EDT): Recent L4-L5 osteomyelitis epidural abscess. Previous admission s/p L3 lumbar decompression and fusion 10/12 Continue IV Rocephin until 11/23 ID following; Obtain q. Wednesday CBC, CMP, ESR, CRP and fax to [phone] Assessment & Plan (11/02/2024 3:45 PM EDT): Recent L4-L5 osteomyelitis epidural abscess. Previous admission s/p L3 lumbar decompression and fusion 10/12 Continue IV Rocephin until 11/23 ID following; Obtain q. Wednesday CBC, CMP, ESR, CRP and fax to [phone] Assessment & Plan (11/01/2024 4:35 PM EDT): Recent L4-L5 osteomyelitis epidural abscess. Previous admission s/p L3 lumbar decompression and fusion 10/12 Continue IV Rocephin until 11/23 ID following; Obtain q. Wednesday CBC, CMP, ESR, CRP and fax to [phone] Assessment & Plan (10/31/2024 3:51 PM EDT): [...] systemic hypertension. Controlled type 2 diabetes m ellitus without complication, without long-term current use of [...] Description 11/20/2024 1:00 PM EDT Office Visit [facility] [address] [place] [address] Merle Villafana PA S/P lumbar fusion (Primary Dx) 11/20/2024 8:15 AM EDT Ancillary Procedure [facility] [address] [place] [address] Merle Villafana PA S/P lumbar fusion 11/20/2024 Travel 11/17/2024 Orders Only [facility] [address] [place] [place] [address] Merle Villafana PA S/P lumbar fusion (Primary Dx) 11/16/2024 2:00 PM EDT Clinical Support Food and Nutrition Services 80 [facility] [address] [place] [address] Mahesh Interiano MD Petracca, Nicole L, RD Weakness (Primary Dx); Controlled type 2 diabetes mellitus without complication, without long-term current use of insulin (HCC) 11/14/2024 Telephone [facility] [address] [place] [address] Andrey Bailon MD 11/13/2024 Orders Only [address] [place] [address] Mahesh Interiano MD Acute on chronic anemia 11/06/2024 10:43 AM EDT Anesthesia Event [facility] [address] [place] [address], [place] [address] Rossy Schwartz MD Edison, Amanda C, PA-C 11/06/2024 9:58 AM EDT - 11/06/2024 10:44 AM EDT Surgery [facility] [address] [place] [address], [place] [address] Lisa Duarte DO COLONOSCOPY 11/03/2024 2:15 PM EDT Anesthesia Event [facility] [address] [place] [address], [place] [address] Bonifacio Garrido MD Ritchie, Agatha T, PA-C 11/03/2024 1:30 PM EDT - 11/03/2024 2:00 PM EDT Surgery [facility] [address] [place] [address], [place] [address] Lisa Duarte DO ENDOSCOPY UPPER 10/28/2024 4:43 PM EDT - 11/07/2024 1:04 PM EDT Hospital Encounter [address] [place] [phone] Ann Marie Bloom MD Thakurathi, Priyesh, MD Pokhrel, Kamal, MD [facility] Care[facility] crespo MD Mohamed, Kareem A, MD Weakness (Primary Dx); Hypokalemia; Confusion; Somnolence; Acute on chronic anemia; Drug-induced constipation; Osteomyelitis of lumbar spine (HCC) Discharge Disposition: Home with Health Care Services 10/28/2024 Travel 10/23/2024 Telephone [facility] [address] [place] [facility] [place] [address] Andrey Bailon MD 10/12/2024 12:30 PM EDT - 10/12/2024 6:16 PM EDT Surgery [facility] [address] [place] [phone] Andrey Bailon MD L3-Pelvis Lumbar Decompression and Fusion for Epidural Abscess 10/12/2024 12:29 PM EDT Anesthesia Event [facility] [address] [place] [address] Carlos Akhtar MD Cooke, Shea, CRNA 10/10/2024 6:45 PM EDT Ancillary Procedure [facility] [address] [place] [address] Provider, File Room 10/10/2024 6:40 PM EDT Ancillary Procedure [facility] [address] [place] [address] Provider, File Room 10/10/2024 6:40 PM EDT Ancillary Procedure [facility] [address] [place] [address] Provider, File Room 10/09/2024 9:29 PM EDT - 10/20/2024 1:42 PM EDT Hospital Encounter [facility] [address] [place] [phone] Ruben Gómez MD Antwi-Boasiako, Samuel, MD Thomas, Listy A, MD Verma, Abhiroop, MD Abscess (Primary Dx); Epidural abscess; Type 2 diabetes mellitus without complication, unspecified whether 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 Never true 10/30/19 Within the past 12 months, t he [...] any time in the past 12 m [facility], were you homeless or living in a usp (including now)? No 10/29/2024 Sex and Gender [...] Clinical Support Food and Nutrition Services 80 [facility] [address] [place] [phone] 02/19/2025 2:00 PM EST Office Visit [facility] [address] [place] [address] Andrey Bailon MD [address] [place] [address] Health Maintenance Due Date Last Done Comments Hepatitis C Virus Screening 1965 Lipid Panel 12/03/1973 Ophthalmology Exam 12/03/1973 HIV Screening 12/03/1976 Microalbumin/Creatinine Ratio Urine 12/03/1981 DTaP/Tdap/Td Vaccines (1 - Tdap) 12/03/1982 Pneumococcal Vaccines 50+ (1 of 2 - PCV) 12/03/1982 Zoster (Shingles) Vaccine (1 of 2) 12/03/2013 RSV Vaccine 50 years and older and Patients (1 - Risk 60-74 years 1-dose series) 2023 Influenza Vaccine 10/27/2024 12/11/2021, 01/29/2021 COVID-19 Vaccine (2024- season) 2024 12/11/2021, 01/29/2021, 01/28/2021, Additional history exists Hemoglobin A1C 05/01/2025 10/29/2024, 07/20/2024 Foot Exam 09/11/2025 09/11/2024, 08/27, 09/11/2024, Additional history exists Creatinine with GFR 11/06/2025 11/06/2024, 11/05/2024, 11/04/2024, Additional history exists Colonoscopy 11/06/2034 11/06/2024 Hepatitis B Vaccines Aged Out No long er eligible based on patient's age to complete this topic Medical Devices Implanted Type Area Twisting Frame Changer Device Identifier Shelf Expiration Date Model / Serial / Lot Iflx-Gf-100 Influx Proteios Xl - [id number] Implanted:Qty: 1 on 10/12/2024 by Andrey Bailon MD at [facility] Tissue Bilatera l: Back [employer] 04/30/2029 IFLX-GF- 100 / [id number] / Iflx-Fw-05 Graft Bone Influx Plus Demineralized Bone Matrix 5 Cc Allogr - [id number] Implanted:Qty: 1 on 10/12/2024 by Andrey Bailon MD at [facility] Tissue Bilatera l: Back [employer] 06/23/2027 IFLX-FW- 05 / [id number] / [id number] Iflx-Fw-05 Graft Bone Influx Plus Demineralized Bone Matrix 5 Cc Allogr - [id number] Implanted:Qty: 1 on 10/12/2024 by Andrey Bailon MD at [facility] Tissue Bilatera l: Back [employer] 06/23/2027 IFLX-FW- 05 / [id number] / [id number] 620-010 Filler Bone Void 10cc 20cc Calcium Slf Stimulan Rpd Cure Kit - [id number] Implanted:Qty: 1 on 10/12/2024 by Andrey Bailon MD at [facility] Void Filler Bilatera l: Back [employer] - A BTG INT [id number] 04/28/2027 620-010 / / [id number] 7.5 X 50ml Screw Implanted:Qty: 2 on 10/12/2024 by Andrey Bailon MD at [facility] N/A: Spine Lumbar [employer] [id number] 50 / / 7.5 X 55mm Screw Implanted:Qty: 4 on 10/12/2024 by Andrey Bailon MD at [facility] N/A: Spine Lumbar [employer] [id number] / / 9.0 X 110 Screw Implanted:Qty: 2 on 10/12/2024 by Andrey Bailon MD at [facility] N/A: Spine Lumbar [facility] [id number] / / Set Screw Implanted:Qty: 8 on 10/12/2024 by Andrey Bailon MD at [facility] N/A: Spine Lumbar [facility] [id number] / / 120mm Adam Implanted:Qty: 2 on 10/12/2024 by Andrey Bailon MD at [facility] N/A: Spine Lumbar [facility] [id number] / / Procedures Procedure Name Priority [...] 11:40 AM EDT RETICULOCYTE WITH INDEX Routine 11/03/2024 9:40 AM EDT RED BLOOD CELL MORPHOLOGY [...] Routine 10/31/2024 5:58 PM EDT US DUPLEX ABDOMEN/PELVIS-COMPLET E Routine 10/31/2024 3:22 PM EDT POCT GLUCOSE, [...] 10/16/2024 6:55 AM EDT VANCOMYCIN LEVEL-RANDOM Timed 10/16/2024 6:55 AM EDT COMPLETE BLOOD COUNT, WITH [...] 10/15/2024 6:05 AM EDT VANCOMYCIN LEVEL-RANDOM Routine 10/15/2024 5:42 AM EDT BASIC METABOLIC PANEL Routine [...] 12:02 PM EDT CHLORIDE, URINE, RANDOM Routine 10/14/2024 12:02 PM EDT CREATININE, URINE, RANDOM Routine [...] EDT Abscess Epidural abscess FUSION POSTERIOR LUMBAR 10/12/2024 11:59 AM EDT Abscess Epidural abscess POCT [...] WITH DIFFERENTIAL Routine 10/10/2024 5:49 AM EDT from Last 3 Months Results [...] of49 resultswithin the time period is included. POC Glucose 216(H) 65 - 99 mg/dL 11/07/2024 11:52 AM EDT Blood specimen / Unknown 11/07/2024 11:48 AM EDT 11/07/2024 11:52 AM EDT Ann Marie Bloom MD POINT OF CARE TEST ORDERABLES Fi nal Result HOSPITAL LAB See Below * (ABNORMAL) COMPLETE BLOOD COUNT, WITHOUT DIFFERENTIAL (11/07/2024 7:00 AM EDT) Only the most recent of13 resultswithin the time period is included. White Blood Cell Count 4.7 4.0 - 11.0 Thou/uL 11/07/2024 10:49 AM [facility] Platelet Count 115(L) 150 - 450 Thou/uL 11/07/2024 10:49 AM [facility] Hemoglobin 7.7(L) 13.0 - 17.7 g/dL 11/07/2024 10:49 AM [facility] Hematocrit 24.1(L) 39.0 - 54.0 % 11/07/2024 10:49 AM [facility] Red Blood Cell Count 2.63(L) 4.50 - 6.20 Mil/uL 11/07/2024 10:49 AM [facility] MCV 92 80 - 100 fL 11/07/2024 10:49 AM [facility] MCH 29.3 27.0 - 31.0 pg 11/07/2024 10:49 AM [facility] MCHC 32.0 30.0 - 36.0 g/dL 11/07/2024 10:49 AM [facility] RDW 21.3(H) 11.5 - 14.5 % 11/07/2024 10:49 AM [facility] MPV 11.1 7.5 - 12.5 fL 11/07/2024 10:49 AM [facility] Immature Platelet Fraction 5.6 1.2 - 8.6 % 11/07/2024 10:49 AM [facility] Blood Blood specimen / Unknown 11/07/2024 7:00 AM EDT 11/07/2024 10:19 AM EDT us Mahesh Interiano MD LAB BLOOD ORDERABLES Final R esult [address] [address], [address] [address] * Erythrocyte Sedimentation Rate (ESR) (11/06/2024 6:00 AM EDT) Erythrocyte Sediment Rate (ESR) 19 <20 MM/HR 11/06/2024 7:06 AM EDT [facility] Blood Blood specimen / Unknown 11/06/2024 6:00 AM EDT 11/06/2024 6:49 AM EDT us Mahesh Interiano MD LAB BLOOD ORDERABLES Final R esult Performing Organization Address [facility] Co de Phone Number [address] [address], [address] [address] * (ABNORMAL) C-Reactive Protein (11/06/2024 6:00 AM EDT) Only the most recent of3 resultswithin the time period is included. C-Reactive Protein 1.60(H) 0 - 0.49 mg/dL 11/06/2024 7:39 AM EDT [facility] Blood Blood specimen / Unknown 11/06/2024 6:00 AM EDT 11/06/2024 6:49 AM EDT us Mahesh Interiano MD LAB BLOOD ORDERABLES Final R esult Performing Organization Address [facility] Co de Phone Number [address] [address], [address] [address] * Magnesium (AM) (11/06/2024 6:00 AM EDT) Only the most recent of8 resultswithin the time period is included. Magnesium 1.6 1.6 - 2.7 mg/dL 11/06/2024 7:39 AM EDT [facility] Blood Blood specimen / Unknown 11/06/2024 6:00 AM EDT 11/06/2024 6:49 AM EDT us Mahesh Interiano MD LAB BLOOD ORDERABLES Final R esult Performing Organization Address City/[facility]/ZIP Co de Phone Number [place] [address] [place] [address], [facility] [address] [place] [address] * (ABNORMAL) Comprehensive Metabolic Panel (11/06/2024 6:00 AM EDT) Only the most recent of4 resultswithin the time period is included. Glucose 183(H) 65 - 99 mg/dL 11/06/2024 7:39 AM [facility] Comment:Fasting: <100 mg/dL, Non-Fasting: <200 mg/dL (ADA 2004) Blood Urea Nitrogen (BUN) 7(L) 8 - 21 mg/dL 11/06/2024 7:39 AM [facility] Creatinine 0.8 0.5 - 1.3 mg/dL 11/06/2024 7:39 AM [facility] eGFR >90 >59 11/06/2024 7:39 AM [facility] Comment:CKD-EPI (2020) in mL /min/1.73 sq meters. Sodium 140 136 - 145 mmol/L 11/06/2024 7:39 AM [facility] Potassium 4.1 3.4 - 5.3 mmol/L 11/06/2024 7:39 AM [facility] Chloride 105 98 - 107 mmol/L 11/06/2024 7:39 AM [facility] CO2 23 22 - 33 mmol/L 11/06/2024 7:39 AM [facility] Calcium 9.1 8.7 - 10.5 mg/dL 11/06/2024 7:39 AM [facility] Alkaline Phosphatase 124 45 - 128 U/L 11/06/2024 7:39 AM [facility] Aspartate Aminotrans (AST) 43 10 - 55 U/L 11/06/2024 7:39 AM [facility] Alanine Aminotrans (ALT) 21 10 - 55 U/L 11/06/2024 7:39 AM [facility] Bilirubin, Total 2.5(H) 0.2 - 1.0 mg/dL 11/06/2024 7:39 AM [facility] Protein, Total 6.1(L) 6.3 - 8.3 g/dL 11/06/2024 7:39 AM [facility] Albumin 3.4(L) 3.5 - 5.0 g/dL 11/06/2024 7:39 AM EDT [facility] BUN/Creatinine Ratio 9(L) 10.0 - 25.0 Ratio 11/06/2024 7:39 AM EDT [facility] Globulin 2.7 1.5 - 3.9 g/dL 11/06/2024 7:39 AM EDT [facility] Albumin/Globulin Ratio 1.3 1.0 - 3.0 Ratio 11/06/2024 7:39 AM EDT [facility] Anion Gap 12 7 - 17 11/06/2024 7:39 AM EDT [facility] Blood Blood specimen / Unknown 11/06/2024 6:00 AM EDT 11/06/2024 6:49 AM EDT us Mahesh Interiano MD LAB BLOOD ORDERABLES Final R esult Performing Organization Address City/[facility]/[place] [address], [place] [address] * (ABNORMAL) Hemoglobin and Hematocrit (11/05/2024 7:00 PM EDT) Only the most recent of5 resultswithin the time period is included. Pathologist [facility] Hematocrit 24.0(L) 39.0 - 54.0 % 11/05/2024 8:39 PM EDT [facility] Hemoglobin 7.7(L) 13.0 - 17.7 g/dL 11/05/2024 8:39 PM EDT [facility] Blood Blood specimen / Unknown 11/05/2024 7:00 PM EDT 11/05/2024 8:12 PM EDT us Mahesh Interiano MD LAB BLOOD ORDERABLES Final R esult Performing Organization Address [facility]/[place] [address], [place] [address] * (ABNORMAL) Basic Metabolic Panel (11/05/2024 5:00 AM EDT) Only the most recent of15 resultswithin the time period is included. Glucose 156(H) 65 - 99 mg/dL 11/05/2024 5:52 AM [facility] Comment:Fasting: <100 mg/dL, Non-Fasting: <200 mg/dL (ADA 2004) Blood Urea Nitrogen (BUN) 6(L) 8 - 21 mg/dL 11/05/2024 5:52 AM [facility] Creatinine 0.8 0.5 - 1.3 mg/dL 11/05/2024 5:52 AM [facility] eGFR >90 >59 11/05/2024 5:52 AM [facility] Comment:CKD-EPI (2020) in mL /min/1.73 sq meters. Sodium 141 136 - 145 mmol/L 11/05/2024 5:52 AM [facility] Potassium 3.5 3.4 - 5.3 mmol/L 11/05/2024 5:52 AM [facility] Chloride 108(H) 98 - 107 mmol/L 11/05/2024 5:52 AM [facility] CO2 22 22 - 33 mmol/L 11/05/2024 5:52 AM [facility] Anion Gap 11 7 - 17 11/05/2024 5:52 AM [facility] Calcium 8.4(L) 8.7 - 10.5 mg/dL 11/05/2024 5:52 AM [facility] BUN/Creatinine Ratio 8(L) 10.0 - 25.0 Ratio 11/05/2024 5:52 AM [facility] Blood Blood specimen / Unknown 11/05/2024 5:00 AM EDT 11/05/2024 5:29 AM EDT us Mahesh Interiano MD LAB BLOOD ORDERABLES Final R esult [address] [address], [address] [address] * (ABNORMAL) Hepatic Function Panel (Routine) (11/03/2024 5:00 PM EDT) Only the most recent of4 resultswithin the time period is included. Pathologist [facility] Alkaline Phosphatase 104 45 - 128 U/L 11/03/2024 7:36 PM EDT [facility] Aspartate Aminotrans (AST) 49 10 - 55 U/L 11/03/2024 7:36 PM EDT [facility] Alanine Aminotrans (ALT) 17 10 - 55 U/L 11/03/2024 7:36 PM EDT [facility] Bilirubin, Total 3.1(H) 0.2 - 1.0 mg/dL 11/03/2024 7:36 PM EDT [facility] Protein, Total 5.9(L) 6.3 - 8.3 g/dL 11/03/2024 7:36 PM EDT [facility] Albumin 3.4(L) 3.5 - 5.0 g/dL 11/03/2024 7:36 PM EDT [facility] Bilirubin, Direct 1.2(H) 0 - 0.2 mg/dL 11/03/2024 7:36 PM EDT [facility] Globulin 2.5 1.5 - 3.9 g/dL 11/03/2024 7:36 PM T [facility] Albumin/Globulin Ratio 1.4 1.0 - 3.0 Ratio 11/03/2024 7:36 PM [facility] Blood Blood specimen / Unknown 11/03/2024 5:00 PM EDT 11/03/2024 6:58 PM EDT us Mahesh Interiano MD LAB BLOOD ORDERABLES Final R esult [address] [address], [address] [address] * (ABNORMAL) Reticulocyte with Index (11/03/2024 9:40 AM EDT) Pathologist [facility] Reticulocyte Count 3.8(H) 0.7 - 2.0 % 11/03/2024 6:46 PM EDT [facility] Reticulocyte, Absolute 106.1(H) 30.0 - 100.0 Thou/uL 11/03/2024 6:46 PM EDT [facility] Reticulocyte Index 2.0 1.0 - 2.0 % 11/03/2024 6:46 PM EDT [facility] Retic Hemoglobin Content 35.50(H) 28 - 35 pg 11/03/2024 6:46 PM EDT [facility] Immature Reticulocyte Fraction 19.5(H) 2.3 - 15.9 % 11/03/2024 6:46 PM EDT [facility] Blood specimen / Unknown 11/03/2024 9:40 AM EDT 11/03/2024 10:44 AM EDT us Mahesh Interiano MD LAB BLOOD ORDERABLES Final R esult Performing Organization Address [facility] [place] [address], [place] [address] * Red Blood Cell Morphology (11/03/2024 9:40 AM EDT) Normochromic Present 11/03/2024 11:43 PM EDT [facility] Normocytic Present 11/03/2024 11:43 PM EDT [facility] Blood specimen / Unknown 11/03/2024 9:40 AM EDT 11/03/2024 10:44 AM EDT us Mahesh Interiano MD LAB BLOOD ORDERABLES Final R esult Performing Organization Address [facility] [place] [address], [place] [address] * Prepare RBC's:Prepare in: Units; Number of Units: 1; Transfusion Indications: Hemoglobin less than 7 gm/dl or HCT less than 21% (11/03/2024 5:16 AM EDT) Only the most recent of2 resultswithin the time period is included. Units Ordered 1 11/03/2024 5:16 AM EDT 11/03/2024 5:16 AM EDT 11/03/2024 5:18 AM EDT us Leighann Osorio APRN BLOOD BANK PRODUCT ORDERAB LES Final Result HOSPITAL LAB See Below * (ABNORMAL) LACTATE DEHYDROGENASE (LDH) (11/03/2024 4:38 AM EDT) Lactate Dehydrogenase (LDH) 294(H) 120 - 260 U/L 11/03/2024 10:24 AM EDT [facility] 11/03/2024 4:38 AM EDT 11/03/2024 4:49 AM EDT Mahesh Interiano MD LAB BLOOD ORDERABLES Final R esult Performing Organization Address [facility] [place] [address], [place] [address] * (ABNORMAL) HAPTOGLOBIN (11/03/2024 4:38 AM EDT) Haptoglobin <10(L) 30 - 200 mg/dL 11/03/2024 10:24 AM EDT [facility] 11/03/2024 4:38 AM EDT 11/03/2024 4:49 AM EDT us Mahesh Interiano MD LAB BLOOD ORDERABLES Final R esult Performing Organization Address [facility] [place] [address], [place] [address] * Pathology (11/03/2024 12:00 AM EDT) Only the most recent of2 resultswithin the time period is included. Report Please See Procedures/Addenda Results Below [facility] [id number] CLIA ID [id number] [address] [place] [address] [phone] Surgical Pathology Report PATIENT NAME: MARTIN ALVES [facility] REC NUMBER: [id number] (AGE): 1965 (Age: 58) SPECIMEN NUMBER: [id number] DATE OBTAINED: 11/03/2024 DIAGNOSIS ENDOSCOPIC BIOPSIES: A. STOMACH: GASTRIC ANTRAL GLAND MUCOSA WITH REACTIVE GASTROPATHY. H. PYLORI IMMUNOHISTOCHEMICAL STAIN WILL BE REPORTED IN AN ADDENDUM. hi/11/07/2024 Electronically Signed Out TETO BRADFORD MD COMMENT [id number] X 1 Clinical Information and History: Procedure: [...] NEGATIVE FOR H. PYLORI (NEGATIVE IMMUNOHISTOCHEMICAL STAIN). [address] The tests used in the work-up of this specimen may include Analyte-Specific Reagents (ASRs). The Immunopathology/[facility] at [facility] has established the performance characteristics of these [...] ABO/Rh A POSITIVE 11/02/2024 1:49 PM EDT [facility] Antibody Screen NEGATIVE 11/02/2024 1:49 PM EDT [facility] Specimen Expiration 11/05/2024 11/02/2024 1:49 PM EDT [facility] Blood Bank Comment Second Sample needed for Blood Transfusion 11/02/2024 1:49 PM EDT [facility] Unit Number [id number] 11/03/2024 4:54 AM EDT [facility] Blood Component Type LEUKOREDUCED RED CELLS 11/03/2024 4:54 AM EDT [facility] Unit Division 00 11/03/2024 4:54 AM EDT [facility] HOSPITAL Unit Status ISSUED,FINAL 11/04/2024 12:24 AM EDT [facility] Transfusion Status OK TO TRANSFUSE 11/03/2024 4:54 AM EDT [facility] Crossmatch Result Electronically Compatible 11/03/2024 4:54 AM EDT [facility] Unit Number [id number] 11/03/2024 5:19 AM EDT [facility] Blood Component Type LEUKOREDUCED RED CELLS 11/03/2024 5:19 AM EDT [facility] Unit Division 00 11/03/2024 5:19 AM EDT [facility] Unit Status ISSUED,FINAL 11/04/2024 12:24 AM [facility] Transfusion Status OK TO TRANSFUSE 11/03[facility]2024 5[facility] Crossmatch Result Electronically Compatible 11/03/2024 5:19 AM [facility] Blood Blood specimen / Unknown 11/02/2024 11:57 AM EDT 11/02/2024 12:44 PM EDT Comment:Blood us Lisa Duarte DO BLOOD BANK TEST ORDERABL ES Final Result HOSPITAL LAB See Below [address] [address] * (ABNORMAL) Protime-INR (AM) (11/02/2024 11:25 AM EDT) Only the most recent of2 resultswithin the time period is included. Anticoagulant NO ANTI COAGULANT MEDS 11/02/2024 7:36 AM EDT [facility] Prothrombin Time (PT) 16.9(H) 10.0 - 13.5 seconds 11/02/2024 12:36 PM EDT [facility] INR 1.5 11/02/2024 12:36 PM EDT [facility] Comment:INR Therapeutic Rang es: Standard dose anticoagulant 2.0 to 3.0, High dose anticoagulant 2.5-3.5. Blood Blood specimen / Unknown 11/02/2024 11:25 AM EDT 11/02/2024 12:06 PM EDT Lisa Duarte DO LAB BLOOD ORDERABLES Fin al Result Performing Organization Address City/[facility]/[place] [address], [place] [address] * ABO Confirmation (11/02/2024 6:00 AM EDT) ABO/Rh A POSITIVE 11/03/2024 4:53 AM EDT [facility] Blood specimen / Unknown 11/02/2024 6:00 AM EDT 11/03/2024 4:26 AM EDT Ann Marie Bloom MD BLOOD BANK TEST ORDERABLES Final Result Performing Organization Address City/[facility]/[place] [address], [place] [address] * Potassium (11/01/2024 6:00 PM EDT) Only the most recent of2 resultswithin the time period is included. Potassium 3.6 3.4 - 5.3 mmol/L 11/01/2024 7:05 PM EDT [facility] Blood Blood specimen / Unknown 11/01/2024 6:00 PM EDT 11/01/2024 6:37 PM EDT us Mahesh Interiano MD LAB BLOOD ORDERABLES Final R esult [address] [address], [address] [address] * XR Chest 1 view-Portable (STAT) (11/01/2024 [...] vessels are patent. us Derrick Cuello MD G US ORDERABLES Final Result * MRI Brain [...] microangiopathic white matter changes. Derrick Cuello MD [facility] MRI ORDERABLES Final Result * Alpha-Fetoprotein (AFP), Tumor Marker (10/30/2024 1:34 PM EDT) Alpha-Fetoprotein (AFP), Tumor Marker 1.6 <6.1 ng/mL 11/03/2024 4:07 PM EDT [employer] Comment: (NOTE) This test was performed using the Yahaira Teri chemiluminescent method. Values obtained from different assay methods cannot be used interchangeably. AFP levels, regardless of value, should not be interpreted as absolute evidence of the presence or absence of disease. Test performed by [employer] [address] [place] [address] Line Haul Driver: Faby Smith MD,PHD,JOSH Test Reported by [employer], [employer] [facility], [address] [place], [place] Jigar Woods M.D., Ph.D., Director of Laboratories , CLIA [id number] Blood Blood specimen / Unknown 10/30/2024 1:34 PM EDT 10/30/2024 1:48 PM EDT Derrick Cuello MD LAB BLOOD ORDERABLES Final Resu lt Performing Organization Address [facility] de Phone Number [employer] [place] [phone] [facility] [address] [place] [address] , [employer] * (ABNORMAL) Zinc Level (10/30/2024 1:34 PM EDT) Zinc 37(L) 60 - 130 mcg/dL 11/02/2024 1:47 AM EDT [facility] Comment: (NOTE) This test was developed and its analytical performance characteristics have been determined by [employer] [place]. It has not been cleared or approved by the U.S. Food and Drug Administration. This assay has been validated pursuant to the CLIA regulations and is used for clinical purposes. Blood Blood specimen / Unknown 10/30/2024 1:34 PM EDT 10/30/2024 1:48 PM EDT Derrick Cuello MD LAB BLOOD ORDERABLES Final Resu lt Performing Organization Address [facility] de Phone Number [facility] [place] [phone] [facility] [address] [place] [address] , [employer], [address] [place] [address] * Blood Culture (10/29/2024 6:22 PM EDT) Only the most recent of4 resultswithin the time period is included. Culture Sterile after 5 days 11/03/2024 8:38 AM EDT [facility] Blood Blood specimen / Unknown 10/29/2024 6:22 PM EDT 10/29/2024 8:41 PM EDT Comment:Blood us Derrick Cuello MD LAB BLOOD ORDERABLES Final Resu lt [facility] [address] [place] [address], [place] * US Guided Bedside Abdominal Paracentesis (10/29/2024 1:53 PM EDT) Anatomical Region Laterality Modality Ultrasound Narrative 10/29/2024 1:57 PM EDT PROCEDURE: ULTRASOUND-GUIDED DIAGNOSTIC PARACENTESIS INDICATION: New onset Ascites SPECIMEN: Specimen collected as requested. Sample left with bedside RN. ACCESS: 5 Citizen Of [place] One-Step needle/catheter system REQUESTING PRACTITIONER: Derrick Cuello [...] or vascular structures. A 5 [place] One-Step needle/catheter system was utilized for access. 1 liters of yellow fluid was aspirated and sent for analysis. The catheter was removed and sterile dressing applied. The patient tolerated the procedure well without evidence of complications. CONCLUSION: Ultrasound-guided diagnostic paracentesis yielding 1 liters of yellow fluid as described. This procedure was performed by LIVIER Manjarrez. us Derrick Cuello MD G US ORDERABLES Final Result * Mycobacteria Culture (includes Acid Fast Smear) (10/29/2024 1:45 PM EDT) Only the most recent of3 resultswithin the time period is included. Culture No acid fast bacilli isolated. 12/11/2024 3:17 PM EDT [facility] Abdominal Cavity 10/29/2024 1:45 PM EDT 10/29/2024 2:45 PM EDT Comment:Fluid, Ascitic us Ann Marie Bloom MD MICROBIOLOGY - GENERAL ORDERABLE S Final Result Performing Organization Address City/[facility]/ZIP Co de Phone Number [facility] [address] [place] [address], [place] * Fungal Culture (non-blood) (10/29/2024 1:45 PM EDT) Only the most recent of3 resultswithin the time period is included. Culture No fungus isolated 11/13/2024 7:52 AM EDT [facility] Abdominal Cavity 10/29/2024 1:45 PM EDT 10/29/2024 2:46 PM EDT Comment:Fluid, Ascitic Ann Marie Bloom MD MICROBIOLOGY - GENERAL ORDERABLE S Final Result [facility] [address] [place] [address], [place] * Body Fluid Culture, Ascites (includes Aerobic, Anaerobic and Gram Stain) (10/29/2024 1:27 PM EDT) Special Requests Limited quantity of fluid received, results may be impacted. 10/30/2024 9:40 AM EDT [facility] Gram stain suggestive of Few neutrophils Mononuclear cells No organisms seen 10/29/2024 3:04 PM EDT [facility] Culture No aerobes and anaerobes isolated after 7 days 11/05/2024 3:12 PM EDT [facility] Fluid, Ascitic (Abdominal Cavity) 10/29/2024 1:27 PM EDT 10/29/2024 2:22 PM EDT Comment:Fluid, Ascitic us Derrick Cuello MD MICROBIOLOGY - GENERAL ORDERABL ES Final Result Performing Organization Address [facility] Co de Phone Number [facility] [address] [place] [address], [address] [address] * Protein, Body Fluid (10/29/2024 1:26 PM EDT) Source Abdominal Cavity 10/29/2024 1:27 PM EDT [facility] Comment:Fluid, Ascitic Protein, Body Fluid 0.7 g/dL 10/29/2024 2:36 PM EDT [facility] Comment:The reference interv al(s) and other method performance specifications are unavailable for this body fluid. Comparison of this result with the concentration in the blood, serum, or plasma is recommended. Fluid, Ascitic (Abdominal Cavity) 10/29/2024 1:26 PM EDT 10/29/2024 2:10 PM EDT us Derrick Cuello MD BODY FLUIDS AND STOOLS ORDERABL ES Final Result Performing Organization Address [facility] Co de Phone Number [facility] [address] [place] [address], [address] [address] * LDH, Ascites (10/29/2024 1:26 PM EDT) Source Abdominal Cavity 10/29/2024 1:27 PM EDT [facility] Comment:Fluid, Ascitic Lactate Dehydrogenase, Body Fluid 41 U/L 10/29/2024 2:36 PM EDT [facility] Comment:The reference interv al(s) and other method performance specifications are unavailable for this body fluid. Comparison of this result with the concentration in the blood, serum, or plasma is recommended. Fluid, Ascitic (Abdominal Cavity) 10/29/2024 1:26 PM EDT 10/29/2024 2:10 PM EDT us Derrick Cuello MD BODY FLUIDS AND STOOLS ORDERABL ES Final Result Performing Organization Address [facility] Co de Phone Number [address] [address], [address] [address] * Glucose, Ascites (10/29/2024 1:26 PM EDT) Source Abdominal Cavity 10/29/2024 1:27 PM EDT [facility] Comment:Fluid, Ascitic Glucose, Body Fluid 138 mg/dL 10/29/2024 2:36 PM EDT [facility] Comment:The reference interv al(s) and other method performance specifications are unavailable for this body fluid. Comparison of this result with the concentration in the blood, serum, or plasma is recommended. Fluid, Ascitic (Abdominal Cavity) 10/29/2024 1:26 PM EDT 10/29/2024 2:10 PM EDT us Derrick Cuello MD BODY FLUIDS AND STOOLS ORDERABL ES Final Result Performing Organization Address City/[facility]/ZIP Co de Phone Number [address] [address], [address] [address] * Albumin, Body Fluid (10/29/2024 1:26 PM EDT) Source Abdominal Cavity 10/29/2024 1:27 PM EDT [facility] Comment:Fluid, Ascitic Albumin, Body Fluid 0.3 g/dL 10/29/2024 2:36 PM EDT [facility] Comment:The reference interv al(s) and other method performance specifications are unavailable for this body fluid. Comparison of this result with the concentration in the blood, serum, or plasma is recommended. Fluid, Ascitic (Abdominal Cavity) 10/29/2024 1:26 PM EDT 10/29/2024 2:10 PM EDT us Derrick Cuello MD BODY FLUIDS AND STOOLS ORDERABL ES Final Result [address] [address], [address] [address] * Cell Count, Reflex Differential, Body Fluid (10/29/2024 1:26 PM EDT) Appearance, Body Fluid Clear 10/29/2024 3:15 PM EDT [facility] Color Yellow 10/29/2024 3:15 PM EDT [facility] Nucleated Cells, Fluid 82 /CUMM 10/29/2024 2:25 PM EDT [facility] RBC, Fluid <2,000 /CUMM 10/29/2024 2:25 PM [facility] Neutrophil, Body Fluid 3 % 10/29/2024 3:15 PM EDT [facility] Lymphoctye, Body Fluid 29 % 10/29/2024 3:15 PM [facility] Monocyte, Body Fluid 9 % 10/29/2024 [facility] Histiocyte, Body Fluid 57 % 10/29/2024 3:15 PM EDT [facility] Mesothelial, Body Fluid 2 % 10/29/2024 3:15 PM EDT [facility] Smear Comment, Body Fluid The reference interval and other method performance specifications are unavailable for this body fluid. Comparison of the result with concentration in the blood, serum, or plasma is recommended 10/29/2024 3:15 PM EDT [facility] Fluid, Ascitic (Abdominal Cavity) 10/29/2024 1:26 PM EDT 10/29/2024 2:10 PM EDT us Derrick Cuello MD BODY FLUIDS AND STOOLS ORDERABL ES Final Result Performing Organization Address [facility] de Phone Number [address] [address], [address] [address] * Cytology Report (10/29/2024 12:56 PM EDT) Report [facility] [id number] CLIA ID [id number] [address] [place] [id number] / [phone] Cytopathology Report PATIENT NAME: MARTIN ALVES [facility] REC NUMBER: [id number] (AGE): 1965 (Age: 58) SPECIMEN NUMBER: [id number] DATE OBTAINED: 10/29/2024 DIAGNOSIS: A. ASCITIC FLUID WITH CELL BLOCK: NEGATIVE FOR MALIGNANT CELLS. REACTIVE MESOTHELIAL CELLS, HISTIOCYTES, AND INFLAMMATORY CELLS [facility]/10/31/2024 Electronically Signed Out MOISÉS DODSON [...] EDT Comment:Ascitic Fluid WITH C ELL BLOCK Derrick Cuello MD PATHOLOGY/CYTOLOGY ORDERABLES F inal Result Performing Organization Address City/[facility]/ZIP Co de Phone Number HOSPITAL LAB See Below * Urinalysis with Reflex to Microscopic and Culture (10/29/2024 10:43 AM EDT) Only the most recent of2 resultswithin the time period is included. Color Yellow 10/29/2024 11:13 AM EDT Clarity Clear 10/29/2024 11:13 AM EDT Specific [place] 1.010 1.005 - 1.030 10/29/2024 11:13 AM [...] Estimated Average Glucose (10/29/2024 9:32 AM EDT) Hemoglobin A1C 6.7(H) <5.7 % 10/29/2024 11:21 AM EDT [facility] Comment: A1c% Interpretation 5.7 - 6.0 Increase risk of diabetes 6.1 - 6.4 Higher risk of diabetes > or = 6.5 Consistent with diabetes Diabetes Care, 33(Supp 1):S1-S61, 2010 Estimated Average Glucose 146 mg/dL 10/29/2024 11:21 AM EDT [facility] Blood Blood specimen / Unknown 10/29/2024 9:32 AM EDT 10/29/2024 9:40 AM EDT us Roman Rangel MD LAB BLOOD ORDERABLES Final Result Performing Organization Address [facility]/ZIP Co de Phone Number [address] [address], [address] [address] * Folate Level (10/29/2024 9:32 AM EDT) Folate, Serum 9.9 >7.2 ng/mL 10/29/2024 10:28 AM EDT [facility] Comment:Specimen hemolyzed. Results may be artifactually elevated. Blood Blood specimen / Unknown 10/29/2024 9:32 AM EDT 10/29/2024 9:41 AM EDT Roman Rangel MD LAB BLOOD ORDERABLES Final Result Performing Organization Address [facility] [place] [address], [place] [address] * (ABNORMAL) Iron and Total Iron Binding Capacity (10/28/2024 9:38 PM EDT) Iron 67 53 - 167 ug/dL 10/29/2024 2:45 AM EDT [facility] UIBC 79(L) 112 - 346 ug/dL 10/29/2024 2:45 AM EDT [facility] Total Iron Binding Capacity 146 100 - 400 ug/dL 10/29/2024 2:45 AM EDT [facility] Iron Sat 46 20 - 50 % 10/29/2024 2:45 AM EDT [facility] 10/28/2024 9:38 PM EDT 10/28/2024 9:47 PM EDT Ann Marie Bloom MD LAB BLOOD ORDERABLES Final Resul t Performing Organization Address [facility] [place] [address], [address] [address] * FERRITIN (10/28/2024 9:38 PM EDT) Only the most recent of2 resultswithin the time period is included. Ferritin 213 30 - 400 ug/L 10/29/2024 2:45 AM EDT [facility] 10/28/2024 9:38 PM EDT 10/28/2024 9:47 PM EDT us Ann Marie Bloom MD LAB BLOOD ORDERABLES Final Resul t Performing Organization Address [facility] Co de Phone Number [address] [address], [address] [address] * CK (10/28/2024 9:38 PM EDT) Only the most recent of2 resultswithin the time period is included. Creatine Kinase (CK) 64 24 - 204 U/L 10/28/2024 10:14 PM EDT [facility] Blood Blood specimen / Unknown 10/28/2024 9:38 PM EDT 10/28/2024 9:47 PM EDT us Ann Marie Bloom MD LAB BLOOD ORDERABLES Final Resul t Performing Organization Address [facility] [place] [address], [place] [address] * Ammonia (10/28/2024 9:38 PM EDT) Ammonia, Plasma 57 16 - 60 umol/L 10/28/2024 10:30 PM EDT [facility] Blood Blood specimen / Unknown 10/28/2024 9:38 PM EDT 10/28/2024 9:43 PM EDT us Ann Marie Bloom MD LAB BLOOD ORDERABLES Final Resul t Performing Organization Address [facility] [place] [address], [address] [address] * CT Head w/o contrast (10/28/2024 7:47 PM EDT) Anatomical Region Laterality Modality Head Computed Tomogra phy 10/28/2024 7:23 PM EDT Impressions 10/28/2024 8:07 PM EDT * No acute intracranial hemorrhage or abnormal carey-white matter differentiation to suggest edematous territorial infarction. 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 Interpreted by: Donato Wang MD Clinical Manager Home Care I personally reviewed the images and the [...] volume atrophy. Interpreted by: Donato Wang MD Clinical Manager Home Care I personally reviewed the images and the resident's preliminary report and AGREE with the report as it is now presented (RADPAL1). us Anna MAIER IMG CT ORDERABLES Final Result * (ABNORMAL) High Sensitivity Troponin T (10/28/2024 6:37 PM EDT) Only the most recent of2 resultswithin the time period is included. High Sensitivity Troponin T 37(H) <23 ng/L 10/28/2024 7:46 PM EDT [facility] Delta (Change) 1 <3 10/28/2024 7:46 PM EDT [facility] Comment:Increased 10/28/2024 6:37 PM EDT 10/28/2024 7:08 PM EDT us Anna MAIER LAB BLOOD ORDERABLES Final Resu lt [address] [address], [address] [address] * XR Chest 2 views (10/28/2024 6:07 PM EDT) Anatomical Region Laterality Modality Chest Computed Radiogr aphy 10/28/2024 5:21 PM EDT Impressions 10/28/2024 7:44 PM EDT Low lung volumes with bronchovascular crowding. Right medial lung base streaky opacities favor atelectasis. Interpreted by: Rodger De La Vega DO Clinical Manager Home Care I personally reviewed the images and the [...] overlying the right humeral head. Procedure Note HermanRicDO - 10/28/2024 EXAMINATION: XR CHEST CLINICAL INFORMATION: [...] Interpreted by: Rodger De La Vega DO Clinical Manager Home Care I personally reviewed the images and the resident's preliminary report and AGREE with the report as it is now presented (RADPAL1). us Anna MAIER IMG DIAGNOSTIC IMAGING ORDERABL ES Final Result * (ABNORMAL) Complete Blood Count, with Differential (10/28/2024 5:46 PM EDT) Only the most recent of7 resultswithin the time period is included. White Blood Cell Count 4.7 4.0 - 11.0 Thou/uL 10/28/2024 5:57 PM [facility] Platelet Count 136(L) 150 - 450 Thou/uL 10/28/2024 5:57 PM [facility] Hemoglobin 7.5(L) 13.0 - 17.7 g/dL 10/28/2024 5:57 PM [facility] Hematocrit 22.7(L) 39.0 - 54.0 % 10/28/2024 5:57 PM [facility] Red Blood Cell Count 2.57(L) 4.50 - 6.20 Mil/uL 10/28/2024 5:57 PM [facility] MCV 88 80 - 100 fL 10/28/2024 5:57 PM EDT [facility] MCH 29.2 27.0 - 31.0 pg 10/28/2024 5:57 [facility] MCHC 33.0 30.0 - 36.0 g/dL 10/28/2024 5:57 [facility] RDW 18.6(H) 11.5 - 14.5 % 10/28/2024 5:57 [facility] MPV 9.4 7.5 - 12.5 fL 10/28/2024 5:57 PM [facility] Neutrophils Auto 64.9 % 10/29/19 5:57 [facility] Immature Granulocytes 0.2 % 10/28/2024 5:57 PM [facility] Lymphocytes Auto 23.6 % 10/29/19 5:57 PM [facility] Monocytes Auto 7.0 % 10/28/2024 5:57 PM [facility] Eosinophils Auto 3.0 % 10/29/19 5:57 PM [facility] Basophils Auto 1.3 % 10/28/2024 5:57 PM [facility] Abs Neutrophils Auto 3.08 2.00 - 7.50 Thou/uL 10/28/2024 5:57 [facility] Abs Immature Granulocytes 0.01 0.00 - 0.10 Thou/uL 10/28/2024 5:57 [facility] Abs Lymphocytes Auto 1.12(L) 1.50 - 4.50 Thou/uL 10/28/2024 5:57 [facility] Abs Monocytes Auto 0.33 0.20 - 1.50 Thou/uL 10/28/2024 5:57 [facility] Abs Eosinophils Auto 0.14 0.00 - 0.70 Thou/uL 10/28/2024 5:57 [facility] Abs Basophils Auto 0.06 0.00 - 0.20 Thou/uL 10/28/2024 5:57 PM [facility] Blood Blood specimen / Unknown 10/28/2024 5:46 PM EDT 10/28/2024 5:49 PM EDT us Anna MAIER LAB BLOOD ORDERABLES Final Resu lt Performing Organization Address [facility] de Phone Number [address] [address], [address] [address] * ECG 12 lead (10/28/2024 4:54 PM EDT) Ventricular rate 90 BPM EKG [facility] Atrial rate 90 BPM EKG [facility] P-R interval 134 ms EKG [facility] QRS duration 96 ms EKG [facility] Q-T interval 400 ms EKG [facility] QTC calculation (Bazett) 490 ms EKG [facility] P axis 15 degrees [facility] R axis 57 degrees EKG [facility] T axis 48 degrees [facility] 10/28/2024 4:54 PM EDT Narrative [facility] - 10/28/2024 5:19 PM EDT Normal sinus rhythm with sinus arrhythmia Nonspecific ST and T wave abnormality Prolonged QT Abnormal ECG Confirmed by MD Luke John ([id number]) on 10/28/2024 5:19:25 PM Procedure Note Mateusz Luke MD - 10/28/2024 Normal sinus rhythm with sinus arrhythmia Nonspecific ST and T wave abnormality Prolonged QT Abnormal ECG Confirmed by MD Luke John ([id number]) on 10/28/2024 5:19:25 PM Anna MAIER ECG ORDERABLES Final Result Performing Organization Address [facility] Co de [facility] Number [facility] * MRI External Result (10/24/2024 12:49 PM EDT) Anatomical Region Laterality Modality Magnetic Resonan ce Narrative 10/24/2024 12:49 PM EDT Ordered by an unspecified provider. Generic Provider IMG MRI ORDERABLES Final Result * (ABNORMAL) POCT Glucose, Fingerstick (10/20/2024 11:35 AM EDT) Only the most recent of40 resultswithin the time period is included. POC Glucose 137(H) 65 - 99 mg/dL 10/20/2024 11:43 AM EDT Comment:Notified RN Blood specimen / Unknown 10/20/2024 11:35 AM EDT 10/20/2024 11:43 AM EDT Chau Portillo MD POINT OF CARE TEST ORDERABLES Final Result Performing Organization Address City/[facility] Co de Phone Number HOSPITAL LAB See Below * (ABNORMAL) Iron and Total Iron Binding Capacity (10/16/2024 2:10 PM EDT) Pathologist [facility] Iron 42(L) 65 - 175 ug/dL 10/16/2024 2:54 PM EDT [facility] UIBC 141 ug/dL 10/16/2024 2:54 PM EDT [facility] Total Iron Binding Capacity 183(L) 250 - 425 ug/dL 10/16/2024 2:54 PM EDT [facility] Iron Sat 23 20 - 50 % 10/16/2024 2:54 PM EDT [facility] 10/16/2024 2:10 PM EDT 10/16/2024 2:27 PM EDT us Chau Portillo MD LAB BLOOD ORDERABLES Final Res ult Performing Organization Address [facility] Co de Phone Number [facility] [address] [place] [address], * (ABNORMAL) Sed Rate (10/16/2024 2:10 PM EDT) Only the most recent of2 resultswithin the time period is included. Pathologist [facility] Sedimentation Rate 90(H) 0 - 15 MM/HR 10/16/2024 3:31 PM EDT [facility] Blood Blood specimen / Unknown 10/16/2024 2:10 PM EDT 10/16/2024 2:26 PM EDT Chau Portillo MD LAB BLOOD ORDERABLES Final Res ult [address] [address], [place] * VITAMIN B12 (10/16/2024 6:55 AM EDT) Vitamin B12 749 211 - 911 pg/mL 10/16/2024 8:37 AM EDT [facility] 10/16/2024 6:55 AM EDT 10/16/2024 7:31 AM EDT Chau Portillo MD LAB BLOOD ORDERABLES Final Res ult Performing Organization Address [facility] [place] [address], [place] * Vancomycin Level, Random (10/16/2024 6:55 AM EDT) Only the most recent of2 resultswithin the time period is included. Vancomycin, Random 16 mg/L 10/16/2024 7:56 AM EDT [facility] Comment:No reference range e stablished for random levels. Time of Last Dose Information not given 10/16/2024 6:36 AM EDT [facility] Blood Blood specimen / Unknown 10/16/2024 6:55 AM EDT 10/16/2024 7:31 AM EDT Chau Portillo MD LAB BLOOD ORDERABLES Final Res ult Performing Organization Address City/[facility]/[place] [address], [place] * US Renal (10/14/2024 2:31 PM [...] agree with the findings. Chau Portillo MD [facility] US ORDERABLES Final Result * Urea Nitrogen, Random Urine (10/14/2024 12:02 PM EDT) Urea Nitrogen, Random Urine 122 mg/dL 10/14/2024 12:50 PM EDT [facility] Comment:Reference range not established for random specimen. Urine Urine specimen / Unknown 10/14/2024 12:02 PM EDT 10/14/2024 12:20 PM EDT us [email or web address] Portillo MD URINE ORDERABLES Final Result Performing Organization Address [facility]/ZIP Co de Phone Number [address] [address], [place] * SODIUM, URINE, RANDOM (10/14/2024 12:02 PM EDT) Sodium, Urine Random 14 mmol/L 10/14/2024 12:50 PM EDT [facility] Comment:Reference range not established for random specimen. Urine specimen / Unknown 10/14/2024 12:02 PM EDT 10/14/2024 12:20 PM EDT us Chau Portillo MD URINE ORDERABLES Final Result Performing Organization Address [facility] [place] [address], [place] * Potassium, Random Urine (10/14/2024 12:02 PM EDT) Potassium, Urine (Random) 64 mmol/L 10/14/2024 12:50 PM EDT [facility] Comment:Reference range not established for random specimen. Urine specimen / Unknown 10/14/2024 12:02 PM EDT 10/14/2024 12:20 PM EDT us Chau Portillo MD URINE ORDERABLES Final Result Performing Organization Address City/[facility]/[place] [address], [place] * OSMOLALITY, URINE (10/14/2024 12:02 PM EDT) Osmolality, Urine 304 50 - 1,200 mOsm/Kg 10/14/2024 1:01 PM EDT [facility] Urine specimen / Unknown 10/14/2024 12:02 PM EDT 10/14/2024 12:20 PM EDT us Chau Portillo MD URINE ORDERABLES Final Result Performing Organization Address [facility] Co de Phone Number [facility] [address] [place] [address], [place] * CREATININE, URINE, RANDOM (10/14/2024 12:02 PM EDT) Creatinine, Urine, Random 114 mg/dL 10/14/2024 12:50 PM EDT [facility] Comment:Reference range not established for random specimen. Urine specimen / Unknown 10/14/2024 12:02 PM EDT 10/14/2024 12:20 PM EDT Chau Portillo MD URINE ORDERABLES Final Result Performing Organization Address [facility] Co de Phone Number [facility] [address] [place] [address], [place] * Chloride, Urine, Random (10/14/2024 12:02 PM EDT) Chloride, Urine, Random 25 mmol/L 10/14/2024 12:50 PM EDT [facility] Comment:Reference range not established for random specimen. Urine specimen / Unknown 10/14/2024 12:02 PM EDT 10/14/2024 12:20 PM EDT us Chau Portillo MD URINE ORDERABLES Final Result Performing Organization Address [facility] Co de Phone Number [facility] [address] [place] [address], [place] * (ABNORMAL) Urinalysis with Reflex to Microscopic (10/14/2024 11:57 AM EDT) Color Dark yellow 10/14/2024 12:47 PM EDT [facility] Clarity Turbid 10/14/2024 12:47 PM EDT [facility] Specific [place] 1.023 1.003 - 1.030 10/14/2024 12:47 PM EDT [facility] pH 5.5 5.0 - 8.0 10/14/2024 12:47 PM EDT [facility] Leukocyte Esterase Small(A) Negative 10/14/2024 12:47 PM EDT [facility] Nitrite Negative Negative 10/14/2024 12:47 PM EDT [facility] Protein Small (30 mg/dL)(A) Negative 10/14/2024 12:47 PM EDT [facility] Glucose 100(H) 0 - 99 mg/dL 10/14/2024 12:47 PM EDT [facility] Ketones Trace(A) Negative 10/14/2024 12:47 PM EDT [facility] Blood Moderate(A) Negative 10/14/2024 12:47 PM EDT [facility] Urobilinogen 1.0 0.2 - 1.0 EU/dL 10/14/2024 12:47 PM EDT [facility] Bilirubin Small(A) Negative 10/14/2024 12:47 PM EDT [facility] WBC 122(H) 0 - 4 per hpf 10/14/2024 12:49 PM EDT [facility] RBC 0 0 - 4 per hpf 10/14/2024 12:49 PM EDT [facility] Bacteria Negative Negative 10/14/2024 12:49 PM EDT [facility] Squamous Epithelial Cells 1 per hpf 10/14/2024 12:49 PM EDT [facility] Hyaline Casts 10(H) 0 - 4 per lpf 10/14/2024 12:49 PM EDT [facility] Yeast ANAEROBIC SUBCULTURE(A ) Absent 10/14/2024 12:49 PM EDT [facility] Urine Urine specimen / Unknown 10/14/2024 11:57 AM EDT 10/14/2024 12:20 PM EDT us Chau Portillo MD URINE ORDERABLES Final Result [facility] [address] [place] [address], * Aerobic culture (Gram stain included) (10/12/2024 4:12 PM EDT) Only the most recent of2 resultswithin the time period is included. Gram stain suggestive of Few neutrophils Few squamous cells Red blood cells No organisms seen 10/12/2024 7:00 PM EDT [facility] Culture Negative after 3 days 10/15/2024 8:18 AM EDT [facility] Exudate Specimen from spinal cord / Unknown 10/12/2024 4:12 PM EDT Andrey Bailon MD MICROBIOLOGY - GENERAL ORDER GINA Final Result Performing Organization Address City/[facility]/ZIP Co de Phone Number [facility] [address] [place] [address], [facility] [address] [place] [address] * Anaerobic Culture (10/12/2024 4:12 PM EDT) Only the most recent of2 resultswithin the time period is included. Culture No anaerobes isolated after 7 days 10/19/2024 9:34 AM EDT [facility] Exudate Specimen from spinal cord / Unknown 10/12/2024 4:12 PM EDT Andrey Bailon MD MICROBIOLOGY - GENERAL ORDER GINA Final Result [facility] [address] [address], * Tissue Culture (aerobic, anaerobic + Gram stain) (10/12/2024 3:49 PM EDT) Only the most recent of2 resultswithin the time period is included. Gram stain suggestive of No neutrophils No organisms seen 10/12/2024 11:44 PM EDT [facility] Culture No aerobes and anaerobes isolated after 7 days 10/20/2024 11:03 AM EDT [facility] Tissue Specimen from spinal cord / Unknown 10/12/2024 3:49 PM EDT Andrey Bailon MD MICROBIOLOGY - GENERAL ORDER GINA Final Result [facility] [address] [place] [address], [place] * ANES LINE - ARTERIAL (10/12/2024 1:46 PM EDT) Viral Dennis CRNA - 10/12/2024 1:46 PM EDT Viral Cowan CRNA 10/12/2024 1:49 PM Anesthesia Procedure Note - Arterial Line Insertion- L radial Patient Name: Martin Alves : 1965 Procedure diagnosis: Anesthesia Performed by: Resident/PATIENT ASSISTANT MD Viral Almonte CRNA Procedure Preparation Skin prep: 2% chlorhexidine - completely dried prior to procedure Hand hygeine performed prior to needle/catheter insertion Sterile barriers in place: cap, gloves and mask Sterile gel used for Ultrasound Procedure Details Zeus's test normal? normal Needle: 20 g Number of attempts: 2 Post Procedure Post-procedure: dressing applied Carlos Akhtar MD [place] ANESTHESIA Final Resul t * ANES INTUBATION [...] baseline Complications: no complications us Viral Cowan PATIENT ASSISTANT [place] ANESTHESIA Final Result * CT Lumbar spine [...] disc space is denoted on series 4, [id number]. Alignment: Lumbar lordosis is preserved. There is [...] is severe bilateral foraminal stenosis at the [id number]. There is subtle sclerosis at the posterior [...] without the use of intravenous contrast George BLANCHARD CT ORDERABLES Final Result * MR Spine Archive for Reference Only (10/10/2024 6:41 PM EDT) Only the most recent of2 resultswithin the time period is included. Narrative MIGUEL - 10/10/2024 6:41 PM EDT This study has been auto finalized and does not contain a result. us File Room Provider IMG DIGITIZE FILMS Final Resu lt MIGUEL [phone] * CR Chest Archive for Reference only (10/10/2024 6:35 PM EDT) Narrative MIGUEL - 10/10/2024 6:35 PM EDT This study has been auto finalized and does not contain a result. us File Room Provider IMG DIGITIZE FILMS Final Resu lt MIGUEL [phone] from Last 3 Months Insurance [facility] [place] [id number] UMR Advance Directives * Full Code (Latest [...] 10:01 PM 10/09/2024 9:29 PM Care Teams Oyster Bed Worker Relationship Specialty Start Date End Date Sammie Estrella PA-C [address] [place] [address], [place] [address] PCP - General Internal Medicine 11/20/24 Catherine Gallardo, RN [address] [address] Nurse Navigator Surgery, Neurosurgery 10/11/24 5
== END 2025-01-10 10:31 | disposition home or self-care (01) ==
LOC: HO.LAB 10:30
DX: Z00.00 Encounter for general adult medical examination without abnormal findings (principal); E11.65 Type 2 diabetes mellitus with hyperglycemia; R79.89 Other specified abnormal findings of blood chemistry; K74.60 Unspecified cirrhosis of liver; E78.00 Pure hypercholesterolemia, unspecified
CPT/HCPCS: 36415; 80053; 80061; 82248; 83036

== ENCOUNTER 2025-01-25 08:05 | Outpatient (REF) | payer OTHER, SELFPAY ==
--- NOTE | ~2025-01-25 | US_ITS ---
EXAMINATION: US ABDOMEN COMPLETE WITH LIVER ELASTOGRAPHY HISTORY: K74.60 - Unspecified cirrhosis of liver TECHNIQUE: Real-time grayscale ultrasound imaging of the abdomen was performed and images were reviewed. COMPARISON: There are no prior studies available for comparison. FINDINGS: Liver: The right lobe of the liver measures 14.0 cm in size. The left lobe of the liver measures 12.7 cm in size. The liver demonstrates increased echotexture, consistent with steatosis. The liver demonstrates a nodular contour, compatible with cirrhosis. No focal mass or intrahepatic biliary ductal dilatation is identified. There is normal hepatopedal flow in the portal vein. Ultrasound elastography of the liver was performed with 10 separate measurements of the liver parenchyma with the patient in the supine position. Measurements were obtained approximately 2 cm below Nilam's capsule and perpendicular to the capsule. The median shear wave velocity is 1.48 m/s. The interquartile range/median (IQR/median) is 0.09. Gallbladder and biliary tree: There is a 2.0 cm calculus in the gallbladder. There is no wall thickening or pericholecystic fluid. There is no sonographic Nagy sign. The common bile duct is normal in caliber measuring 3 mm. Kidneys: The right kidney measures 13.0 cm in length. The left kidney measures 13.7 cm in length. The kidneys are unremarkable, without evidence of masses, hydronephrosis, or calculi. Pancreas: The pancreatic head, neck, and body are unremarkable. The pancreatic tail is obscured by bowel gas. Spleen: The spleen is normal in size and contour, measuring 14.6 cm in length. Abdominal aorta and inferior vena cava: The visualized portions of the abdominal aorta and inferior vena cava are normal in caliber. There is no free fluid in the abdomen. US/US abdomen comp w elastography IMPRESSION: Hepatic cirrhosis and steatosis. Splenomegaly. The median shear wave velocity in the liver is 1.48 m/s, corresponding to a median liver stiffness of 6.82 kPa. The IQR/median value is 0.09. This is indicative of a quality data set. Findings are indicative of a low elastography value which rules out advanced chronic liver disease in asymptomatic patients. REFERENCE: Society of Radiologists in Ultrasound Liver Stiffness Thresholds (2020): LIVER STIFFNESS THRESHOLDS: *Shear wave velocity less than 1.3 m/s (Liver Stiffness equal or less than 5 kPa): High probability of being normal. *Shear wave velocity less than 1.7 m/s (Liver Stiffness less than 9 kPa): In the absence of other known clinical signs, rules out compensated advanced chronic liver disease. *Shear wave velocity between 1.7-2.1 m/s (Liver Stiffness 9-13 kPa): Suggestive of compensated advanced chronic liver disease but need further test for confirmation. *Shear wave velocity between 2.1-2.4 m/s (Liver Stiffness 13-17 kPa): Rules in compensated advanced chronic liver disease. *Shear wave velocity greater than 2.4 m/s (Liver Stiffness over 17 kPa): Suggestive of clinically significant portal hypertension. QUALITY OF DATA SET: *IQR/Median value equal or less than 0.15 implies a quality data set. *IQR/Median value over 0.15 implies a poor quality data set. SIGNIFICANT CHANGE FROM PRIOR EXAM: Significant change if liver stiffness measurement is 10% or greater from prior exam. OTHER CONSIDERATIONS: The stage of liver fibrosis may be overestimated in the setting of acute hepatitis, liver inflammation, elevated liver function tests, hepatic vascular congestion, obstructive cholestasis, non-fasting state, and infiltrative diseases such as amyloidosis and lymphoma. In some patients with NAFLD, the liver stiffness thresholds for compensated advanced chronic liver disease may be lower. In causes other than viral hepatitis and NAFLD, liver stiffness thresholds are not well established. Electronically signed by: Viral Valdes MD 01/25/2025 09:06 AM EDT
--- OUTSIDE RECORDS SUMMARY | 2025-01-25 08:19 | XMS_ITS | Encounter Summary ---
Author Organization [facility] [place] [address] Care Team Providers Care Hedis Registered Nurse Rn Name Role Phone Gerardo Nice MD Primary Care Provider [phone] Encounter Details Date Type Department Care Team (Late st Contact Info) Description 07/29/2024 Lab Requisition [facility] - Main Lab [address] [facility] [place] [address] Gerardo Nice MD [address] [facility] [address] [place], [phone] Sepsis, unspecified organism (CMS/HCC V24, CMS/HCC [...] 07/29/2024 6:10 AM EDT Sepsis, unspecified organism ([facility] [place], [facility] V28) COMPREHENSIVE METABOLIC PANEL Routine 07/29/2024 6:10 AM EDT Sepsis, unspecified organism ([facility] [place]24, [facility] V28) documented in this encounter Results * (ABNORMAL) Comprehensive metabolic panel (07/29/2024 6:10 AM EDT) Sodium 131(L) 133 - 145 mmol/L LAB CHEMISTRY METHOD 07/29/2024 12:11 PM [facility] Potassium 4.2 3.5 - 5.5 mmol/L LAB CHEMISTRY METHOD 07/29/2024 12:11 PM [facility] Chloride 94(L) 96 - 110 mmol/L LAB CHEMISTRY METHOD 07/29/2024 12:11 PM [facility] CO2 28 21 - 32 mmol/L LAB CHEMISTRY METHOD 07/29/2024 12:11 PM [facility] Anion Gap 9 3 - 11 LAB CHEMISTRY METHOD 07/29/2024 12:11 PM [facility] Glucose 232(H) 70 - 100 mg/dL LAB CHEMISTRY METHOD 07/29/2024 12:11 PM [facility] BUN 17 5 - 25 mg/dL LAB CHEMISTRY METHOD 07/29/2024 12:11 PM [facility] Creatinine 0.64(L) 0.70 - 1.30 mg/dL LAB CHEMISTRY METHOD 07/29/2024 12:11 PM [facility] eGFR 108 >=60 mL/min/1. 73m2 LAB CHEMISTRY METHOD 07/29/2024 12:11 PM [facility] Comment:Calculation based on the Chronic Kidney Disease Epidemiology Collaboration (CKD-EPI) equation refit without adjustment for race. BUN/Creatinine Ratio 26.6 LAB CHEMISTRY METHOD 07/29/2024 12:11 PM EDT [facility] Calcium 7.7(L) 8.5 - 10.5 mg/dL LAB CHEMISTRY METHOD 07/29/2024 12:11 PM [facility] AST (SGOT) 47(H) 10 - 42 unit/L LAB CHEMISTRY METHOD 07/29/2024 12:11 PM [facility] ALT (SGPT) 26 10 - 60 unit/L LAB CHEMISTRY METHOD 07/29/2024 12:11 PM [facility] Alkaline Phosphatase 89 42 - 121 unit/L LAB CHEMISTRY METHOD 07/29/2024 12:11 PM [facility] Total Protein 5.6(L) 6.0 - 8.0 g/dL LAB CHEMISTRY METHOD 07/29/2024 12:11 PM [facility] Albumin 1.6(L) 3.2 - 5.0 g/dL LAB CHEMISTRY METHOD 07/29/2024 12:11 PM [facility] Total Bilirubin 5.3(H) 0.0 - 1.4 mg/dL LAB CHEMISTRY METHOD 07/29/2024 12:11 PM [facility] Blood Venous blood specimen / Unknown Venipuncture / Unknown 07/29/2024 6:10 AM EDT 07/29/2024 10:55 AM EDT us Gerardo Nice MD LAB BLOOD ORDERABLES Final Resul t [facility] [address] [place] [address], [place] [phone] * (ABNORMAL) Complete blood count (07/29/2024 6:10 AM EDT) WBC 11.8(H) 4.8 - 10.8 K/mcL LAB HEMETOLOGY METHOD 07/29/2024 11:47 AM [facility] RBC 3.10(L) 4.50 - 5.50 M/mcL LAB HEMETOLOGY METHOD 07/29/2024 11:47 AM [facility] Hemoglobin 9.4(L) 13.5 - 17.5 g/dL LAB HEMETOLOGY METHOD 07/29/2024 11:47 AM [facility] Hematocrit 29.2(L) 42.0 - 54.0 % LAB HEMETOLOGY METHOD 07/29/2024 11:47 AM [facility] MCV 93.9 79.0 - 98.0 FL LAB HEMETOLOGY METHOD 07/29/2024 11:47 AM [facility] MCH 30.2 27.0 - 32.0 pcg LAB HEMETOLOGY METHOD 07/29/2024 11:47 AM [facility] MCHC 32.2 32.0 - 37.0 g/dL LAB HEMETOLOGY METHOD 07/29/2024 11:47 AM [facility] RDW 15.8(H) 11.0 - 15.0 % LAB HEMETOLOGY METHOD 07/29/2024 11:47 AM [facility] Platelets 181 130 - 400 K/[facility] LAB HEMETOLOGY METHOD 07/29/2024 11:47 AM [facility] MPV 11.1(H) 7.0 - 11.0 FL LAB HEMETOLOGY METHOD 07/29/2024 11:47 AM [facility] NRBC 0.0 <1.0 % LAB HEMETOLOGY METHOD 07/29/2024 11:47 AM [facility] NRBC Absolute 0.00 <0.10 K/[facility] LAB HEMETOLOGY METHOD 07/29/2024 11:47 AM EDT [facility] Blood Venous blood specimen / Unknown Venipuncture / Unknown 07/29/2024 6:10 AM EDT 07/29/2024 10:55 AM EDT us Gerardo Nice MD LAB BLOOD ORDERABLES Final Resul t [facility] [address] [place] [address], documented in this encounter Visit Diagnoses Diagnosis Sepsis, unspecified organism (CMS/HCC V24, CMS/HCC V28) documented in this encounter Care Teams Hedis Registered Nurse Rn Relationship Specialty Start Date End Date Gerardo Nice MD [address] [place] [address], [phone] PCP - General Family Medicine 07/29/24 documented as of this encounter
--- OUTSIDE RECORDS SUMMARY | 2025-01-25 08:20 | XMS_ITS | Encounter Summary ---
Author Organization [facility] [place] [address] Care Team Providers Care Coordinate Measuring Machine Programmer Name Role Phone Gerardo Nice MD Primary Care Provider [phone] Encounter Details Date Type Department Care Team (Late st Contact Info) Description 08/10/2024 Lab Requisition [facility] - Main Lab [address] [place] [address] Gerardo Nice MD 38 [facility] [address] [place], [phone] Other specified sepsis (CMS/HCC V24, CMS/[facility] V28); Type 2 diabetes mellitus [...] 08/10/2024 5:21 AM EDT Other specified sepsis ([facility] V24, [facility] [place] Type 2 diabetes mellitus without complications ([facility] [place], [facility] [place]) BASIC METABOLIC PANEL Routine 08/10/2024 5:21 AM EDT Other specified sepsis ([facility] [place], [facility] [place]28[facility] Type 2 diabetes mellitus without complications ([facility] [place], [facility] [place]) documented in this encounter Results * (ABNORMAL) Basic metabolic panel (08/10/2024 5:21 AM EDT) Sodium 135 133 - 145 mmol/L LAB CHEMISTRY METHOD 08/10/2024 10:40 AM [facility] Potassium 4.2 3.5 - 5.5 mmol/L LAB CHEMISTRY METHOD 08/10/2024 10:40 AM [facility] Chloride 99 96 - 110 mmol/L LAB CHEMISTRY METHOD 08/10/2024 10:40 AM [facility] CO2 28 21 - 32 mmol/L LAB CHEMISTRY METHOD 08/10/2024 10:40 AM [facility] Anion Gap 8 3 - 11 LAB CHEMISTRY METHOD 08/10/2024 10:40 AM [facility] Glucose 175(H) 70 - 100 mg/dL LAB CHEMISTRY METHOD 08/10/2024 10:40 AM [facility] BUN 9 5 - 25 mg/dL LAB CHEMISTRY METHOD 08/10/2024 10:40 AM [facility] Creatinine 0.48(L) 0.70 - 1.30 mg/dL LAB CHEMISTRY METHOD 08/10/2024 10:40 AM EDT [facility] eGFR 118 >=60 mL/min/1. 73m2 LAB CHEMISTRY METHOD 08/10/2024 10:40 AM EDT [facility] Comment:Calculation based on the Chronic Kidney Disease Epidemiology Collaboration (CKD-EPI) equation refit without adjustment for race. BUN/Creatinine Ratio 18.8 LAB CHEMISTRY METHOD 08/10/2024 10:40 AM EDT [facility] Calcium 8.3(L) 8.5 - 10.5 mg/dL LAB CHEMISTRY METHOD 08/10/2024 10:40 AM EDT [facility] Blood Venous blood specimen / Unknown Venipuncture / Unknown 08/10/2024 5:21 AM EDT 08/10/2024 9:44 AM EDT us Gerardo Nice MD LAB BLOOD ORDERABLES Final Resul t [facility] [address] [place] [address], * (ABNORMAL) Complete blood count (08/10/2024 5:21 AM EDT) WBC 6.0 4.8 - 10.8 K/mcL LAB HEMETOLOGY METHOD 08/10/2024 10:25 AM T [facility] RBC 2.90(L) 4.50 - 5.50 M/mcL LAB HEMETOLOGY METHOD 08/10/2024 10:25 AM EDT [facility] Hemoglobin 9.1(L) 13.5 - 17.5 g/dL LAB HEMETOLOGY METHOD 08/10/2024 10:25 AM EDT [facility] Hematocrit 28.5(L) 42.0 - 54.0 % LAB HEMETOLOGY METHOD 08/10/2024 10:25 AM EDT [facility] MCV 96.9 79.0 - 98.0 FL LAB HEMETOLOGY METHOD 08/10/2024 10:25 AM EDT [facility] MCH 31.0 27.0 - 32.0 pcg LAB HEMETOLOGY METHOD 08/10/2024 10:25 AM EDT [facility] MCHC 31.9(L) 32.0 - 37.0 g/dL LAB HEMETOLOGY METHOD 08/10/2024 10:25 AM EDT [facility] RDW 14.9 11.0 - 15.0 % LAB HEMETOLOGY METHOD 08/10/2024 10:25 AM EDT [facility] Platelets 185 130 - 400 K/mcL LAB HEMETOLOGY METHOD 08/10/2024 10:25 AM EDT [facility] MPV 10.6 7.0 - 11.0 FL LAB HEMETOLOGY METHOD 08/10/2024 10:25 AM EDT [facility] NRBC 0.0 <1.0 % LAB HEMETOLOGY METHOD 08/10/2024 10:25 AM EDT [facility] NRBC Absolute 0.00 <0.10 K/mcL LAB HEMETOLOGY METHOD 08/10/2024 10:25 AM EDT [facility] Blood Venous blood specimen / Unknown Venipuncture / Unknown 08/10/2024 5:21 AM EDT 08/10/2024 9:44 AM EDT us Gerardo Nice MD LAB BLOOD ORDERABLES Final Resul t [facility] [address] [place] [address], documented in this encounter Visit Diagnoses Diagnosis Other specified sepsis (CMS/HCC V24, CMS/HCC V28) Type 2 diabetes mellitus without complications (CMS/HCC V24, CMS/HCC V28) documented in this encounter Care Teams Coordinate Measuring Machine Programmer Relationship Specialty Start Date End Date Gerardo Nice MD [address] [place] [address] [place], [phone] PCP - General Family Medicine 07/29/24 documented as of this encounter
--- OUTSIDE RECORDS SUMMARY | 2025-01-25 08:20 | XMS_ITS | Encounter Summary ---
Author Organization [facility] [place] [address] Care Team Providers Care Top Spotter Name Role Phone Gerardo Nice MD Primary Care Provider [phone] Encounter Details Date Type Department Care Team (Late st Contact Info) Description 08/03/2024 Lab Requisition [facility] - Main Lab [address] [facility] [place] [address] Gerardo Nice MD 38 [facility] [address] [place], [phone] Unspecified infectious disease Social History Tobacco [...] and culture (08/03/2024 3:00 AM EDT) Specific [place] Urine 1.008 1.003 - 1.030 LAB URINALYSIS - AUTOMATED METHOD 08/03/2024 10:10 AM [facility] pH, Urine 6.5 5.0 - 8.0 pH LAB URINALYSIS - AUTOMATED METHOD 08/03/2024 10:10 AM [facility] Leukocytes, Urine Negative Negative LAB URINALYSIS - AUTOMATED METHOD 08/03/2024 10:10 AM [facility] Nitrite, Urine Negative Negative LAB URINALYSIS - AUTOMATED METHOD 08/03/2024 10:10 AM [facility] Protein, Urine Negative <=Trace mg/dL LAB URINALYSIS - AUTOMATED METHOD 08/03/2024 10:10 AM [facility] Glucose, Urine Negative Negative mg/dL LAB URINALYSIS - AUTOMATED METHOD 08/03/2024 10:10 AM [facility] Ketones, Urine Negative Negative mg/dL LAB URINALYSIS - AUTOMATED METHOD 08/03/2024 10:10 AM [facility] Urobilinogen, Urine >=8.0(A) 0.2 - 1.0 mg/dL LAB URINALYSIS - AUTOMATED METHOD 08/03/2024 10:10 AM EDT [facility] Bilirubin, Urine Negative Negative LAB URINALYSIS - AUTOMATED METHOD 08/03/2024 10:10 AM EDT [facility] Blood, Urine Negative Negative LAB URINALYSIS - AUTOMATED METHOD 08/03/2024 10:10 AM EDT [facility] Urine Urine specimen obtained by clean catch procedure / Unknown Non-blood Collection / Unknown 08/03/2024 3:00 AM EDT 08/03/2024 8:26 AM EDT Gerardo Nice MD LAB URINE ORDERABLES Final Resul t [facility] [address] [place] [address], [place] [phone] * Carey urine culture tube (08/03/2024 3:00 AM EDT) Extra Tube Hold for add-ons. 08/03/2024 10:02 AM EDT [facility] Comment:Auto resulted. Urine Urine specimen obtained by clean catch procedure / Unknown Non-blood Collection / Unknown 08/03/2024 3:00 AM EDT 08/03/2024 8:26 AM EDT us Gerrado Nice MD LAB URINE ORDERABLES Final Resul t Performing Organization Address City/[facility]/ZIP Co de Phone Number [facility] [address] [place] [address], [place] [phone] documented in this encounter Visit Diagnoses Diagnosis Unspecified infectious disease documented in this encounter Care Teams Top Spotter Relationship Specialty Start Date End Date Gerardo Nice MD [address] [place] [address], [phone] PCP - General Family Medicine 07/29/24 documented as of this encounter
--- OUTSIDE RECORDS SUMMARY | 2025-01-25 08:20 | XMS_ITS | Encounter Summary ---
Author Organization [facility] [place] [address] Care Team Providers Care Bread Room Hand Name Role Phone Gerardo Nice MD Primary Care Provider [phone] Encounter Details Date Type Department Care Team (Late st Contact Info) Description 08/10/2024 Lab Requisition [facility] - Main Lab [address] [facility] [place] [address] Gerardo Nice MD 38 [facility] [address] [place], [phone] Diarrhea, unspecified Social History Tobacco Use [...] Antigen Negative Negative 08/10/2024 11:44 AM EDT [facility] C difficile Toxins A+B, EIA Negative Negative 08/10/2024 11:44 AM EDT [facility] Comment:NEGATIVE FOR TOXIN P RODUCING CLOSTRIDIOIDES DIFFICILE, NO ADDITIONAL TESTING IS NECESSARY. Stool Rectum structure / Unknown 08/09/2024 8:00 PM EDT 08/10/2024 9:32 AM EDT us Gerardo Nice MD LAB MICROBIOLOGY - GENERAL ORDER GINA Final Result [facility] [address] [place] [address], documented in this encounter Visit Diagnoses Diagnosis Diarrhea, unspecified documented in this encounter Care Teams Bread Room Hand Relationship Specialty Start Date End Date Gerardo Nice MD [address] [place] [address] [address] [place], [phone] PCP - General Family Medicine 07/29/24 documented as of this encounter
--- OUTSIDE RECORDS SUMMARY | 2025-01-25 08:20 | XMS_ITS | Encounter Summary ---
Author Organization [facility] [place] [address] Care Team Providers Care Digital Marketing Executive Name Role Phone Gerardo Nice MD Primary Care Provider [phone] Encounter Details Date Type Department Care Team (Late st Contact Info) Description 08/03/2024 Lab Requisition [facility] - Main Lab 299 [facility] [place] [address] Gerardo Nice MD 38 [facility] [address] [place], [address] Unspecified infectious disease Social History Tobacco [...] mmol/L LAB CHEMISTRY METHOD 08/03/2024 10:45 AM [facility] Potassium 4.8 3.5 - 5.5 mmol/L LAB CHEMISTRY METHOD 08/03/2024 10:45 AM [facility] LAB Comment:Hemolysis present Chloride 94(L) 96 - 110 mmol/L LAB CHEMISTRY METHOD 08/03/2024 10:45 AM [facility] LAB CO2 27 21 - 32 mmol/L LAB CHEMISTRY METHOD 08/03/2024 10:45 AM [facility] LAB Anion Gap 8 3 - 11 LAB CHEMISTRY METHOD 08/03/2024 10:45 AM [facility] LAB Glucose 163(H) 70 - 100 mg/dL LAB CHEMISTRY METHOD 08/03/2024 10:45 AM [facility] LAB BUN 14 5 - 25 mg/dL LAB CHEMISTRY METHOD 08/03/2024 10:45 AM [facility] LAB Creatinine 0.68(L) 0.70 - 1.30 mg/dL LAB CHEMISTRY METHOD 08/03/2024 10:45 AM [facility] LAB eGFR 106 >=60 mL/min/1. 73m2 LAB CHEMISTRY METHOD 08/03/2024 10:45 AM [facility] LAB Comment:Calculation based on the Chronic Kidney Disease Epidemiology Collaboration (CKD-EPI) equation refit without adjustment for race. BUN/Creatinine Ratio 20.6 LAB CHEMISTRY METHOD 08/03/2024 10:45 AM [facility] LAB Calcium 8.1(L) 8.5 - 10.5 mg/dL LAB CHEMISTRY METHOD 08/03/2024 10:45 AM EDT [facility] Blood Venous blood specimen / Unknown Venipuncture / Unknown 08/03/2024 5:08 AM EDT 08/03/2024 9:30 AM EDT us Gerardo Nice MD LAB BLOOD ORDERABLES Final Resul t [facility] [address] [place] [address], documented in this encounter Visit Diagnoses Diagnosis Unspecified infectious disease documented in this encounter Care Teams Digital Marketing Executive Relationship Specialty Start Date End Date Gerardo Nice MD [address] [place] [address], [phone] PCP - General Family Medicine 07/29/24 documented as of this encounter
--- OUTSIDE RECORDS SUMMARY | 2025-01-25 08:20 | XMS_ITS | Clinical Summary ---
Author Organization [facility] Address [address] [place] [address] Care Team Providers Care Nursing Technician Name Role Phone Melanie Cummins Primary Care Provider [phone] Allergies No known active allergies Medications Medication [...] age to complete this topic Care Teams Nursing Technician Relationship Specialty Start Date End Date Melanie Cummins PA PCP - General Physician Paleology Professor 12/09/21
--- OUTSIDE RECORDS SUMMARY | 2025-01-25 08:20 | XMS_ITS | Encounter Summary ---
Author Organization [facility] [place] [address] Care Team Providers Care Center Medical Director Name Role Phone Gerardo Nice MD Primary Care Provider [phone] Encounter Details Date Type Department Care Team (Late st Contact Info) Description 08/05/[address] [facility] - Main Lab [address] [facility] [address] [facility] [place] [address] Gerardo Nice MD 38 [facility] [address] [place], [address] Other specified sepsis (CMS/HCC V24, CMS/HCC [...] 08/07/2024 6:14 AM EDT Other specified sepsis ([facility] V24, [facility] V28) CBC AND DIFFERENTIAL Routine 08/07/2024 6:14 AM EDT Other specified sepsis ([facility] V24, [facility] V28) COMPREHENSIVE METABOLIC PANEL Routine 08/07/2024 6:14 AM EDT Other specified sepsis ([facility] V24, [facility] V28) documented in this encounter Results * (ABNORMAL) CBC auto differential (08/07/2024 6:14 AM EDT) WBC 6.6 4.8 - 10.8 K/mcL LAB HEMETOLOGY METHOD 08/07/2024 10:50 AM [facility] LAB RBC 3.40(L) 4.50 - 5.50 M/mcL LAB HEMETOLOGY METHOD 08/07/2024 10:50 AM [facility] LAB Hemoglobin 10.6(L) 13.5 - 17.5 g/dL LAB HEMETOLOGY METHOD 08/07/2024 10:50 AM [facility] LAB Hematocrit 33.1(L) 42.0 - 54.0 % LAB HEMETOLOGY METHOD 08/07/2024 10:50 AM [facility] LAB MCV 96.5 79.0 - 98.0 FL LAB HEMETOLOGY METHOD 08/07/2024 10:50 AM [facility] LAB MCH 30.9 27.0 - 32.0 pcg LAB HEMETOLOGY METHOD 08/07/2024 10:50 AM [facility] LAB MCHC 32.0 32.0 - 37.0 g/dL LAB HEMETOLOGY METHOD 08/07/2024 10:50 AM [facility] LAB RDW 15.4(H) 11.0 - 15.0 % LAB HEMETOLOGY METHOD 08/07/2024 10:50 AM [facility] LAB Platelets 202 130 - 400 K/mcL LAB HEMETOLOGY METHOD 08/07/2024 10:50 AM [facility] MPV 10.6 7.0 - 11.0 FL LAB HEMETOLOGY METHOD 08/07/2024 10:50 AM [facility] NRBC 0.0 <1.0 % LAB HEMETOLOGY METHOD 08/07/2024 10:50 AM [facility] LAB NRBC Absolute 0.00 <0.10 K/mcL LAB HEMETOLOGY METHOD 08/07/2024 10:50 AM [facility] Neutrophils Relative 69.8 % LAB HEMETOLOGY METHOD 08/07/2024 10:50 AM [facility] Lymphocytes Relative 17.1 % LAB HEMETOLOGY METHOD 08/07/2024 10:50 AM [facility] Monocytes Relative 10.2 % LAB HEMETOLOGY METHOD 08/07/2024 10:50 AM [facility] Eosinophils Relative 1.8 % LAB HEMETOLOGY METHOD 08/07/2024 10:50 AM [facility] Basophils Relative 0.5 % LAB HEMETOLOGY METHOD 08/07/2024 10:50 AM [facility] Immature Granulocytes Relative 0.6 % LAB HEMETOLOGY METHOD 08/07/2024 10:50 AM [facility] Neutrophils Absolute 4.57 1.50 - 7.00 K/mcL LAB HEMETOLOGY METHOD 08/07/2024 10:50 AM [facility] Lymphocytes Absolute 1.12 1.00 - 5.00 K/mcL LAB HEMETOLOGY METHOD 08/07/2024 10:50 AM EDT [facility] Monocytes Absolute 0.67 0.20 - 1.00 K/mcL LAB HEMETOLOGY METHOD 08/07/2024 10:50 AM EDT [facility] LAB Eosinophils Absolute 0.12 0.00 - 0.50 K/[facility] LAB HEMETOLOGY METHOD 08/07/2024 10:50 AM EDT [facility] Basophils Absolute 0.03 0.00 - 0.20 K/mcL LAB HEMETOLOGY METHOD 08/07/2024 10:50 AM EDT [facility] Immature Granulocytes Absolute 0.04(H) 0.00 - 0.03 K/[facility] LAB HEMETOLOGY METHOD 08/07/2024 10:50 AM [facility] LAB Blood Venous blood specimen / Unknown Venipuncture / Unknown 08/07/2024 6:14 AM EDT 08/07/2024 10:19 AM EDT us Gerardo Nice MD LAB BLOOD ORDERABLES Final Resul t [facility] [address] [place] [address], * (ABNORMAL) Comprehensive metabolic panel (08/07/2024 6:14 AM EDT) Sodium 132(L) 133 - 145 mmol/L LAB CHEMISTRY METHOD 08/07/2024 11:02 AM T [facility] Potassium 4.8 3.5 - 5.5 mmol/L LAB CHEMISTRY METHOD 08/07/2024 11:02 AM [facility] Chloride 97 96 - 110 mmol/L LAB CHEMISTRY METHOD 08/07/2024 11:02 AM [facility] CO2 25 21 - 32 mmol/L LAB CHEMISTRY METHOD 08/07/2024 11:02 AM [facility] Anion Gap 10 3 - 11 LAB CHEMISTRY METHOD 08/07/2024 11:02 AM [facility] Glucose 134(H) 70 - 100 mg/dL LAB CHEMISTRY METHOD 08/07/2024 11:02 AM [facility] BUN 12 5 - 25 mg/dL LAB CHEMISTRY METHOD 08/07/2024 11:02 AM [facility] Creatinine 0.60(L) 0.70 - 1.30 mg/dL LAB CHEMISTRY METHOD 08/07/2024 11:02 AM [facility] LAB eGFR 111 >=60 mL/min/1. 73m2 LAB CHEMISTRY METHOD 08/07/2024 11:02 AM [facility] LAB Comment:Calculation based on the Chronic Kidney Disease Epidemiology Collaboration (CKD-EPI) equation refit without adjustment for race. BUN/Creatinine Ratio 20.0 LAB CHEMISTRY METHOD 08/07/2024 11:02 AM [facility] Calcium 8.4(L) 8.5 - 10.5 mg/dL LAB CHEMISTRY METHOD 08/07/2024 11:02 AM [facility] AST (SGOT) 49(H) 10 - 42 unit/L LAB CHEMISTRY METHOD 08/07/2024 11:02 AM [facility] ALT (SGPT) 26 10 - 60 unit/L LAB CHEMISTRY METHOD 08/07/2024 11:02 AM [facility] LAB Alkaline Phosphatase 99 42 - 121 unit/L LAB CHEMISTRY METHOD 08/07/2024 11:02 AM [facility] Total Protein 6.8 6.0 - 8.0 g/dL LAB CHEMISTRY METHOD 08/07/2024 11:02 AM [facility] Albumin 1.8(L) 3.2 - 5.0 g/dL LAB CHEMISTRY METHOD 08/07/2024 11:02 AM [facility] Total Bilirubin 3.1(H) 0.0 - 1.4 mg/dL LAB CHEMISTRY METHOD 08/07/2024 11:02 AM EDT [facility] Blood Venous blood specimen / Unknown Venipuncture / Unknown 08/07/2024 6:14 AM EDT 08/07/2024 10:19 AM EDT us Gerardo Nice MD LAB BLOOD ORDERABLES Final Resul t [facility] [address] [place] [address], documented in this encounter Visit Diagnoses Diagnosis Other specified sepsis (CMS/HCC V24, CMS/HCC V28) documented in this encounter Care Teams Center Medical Director Relationship Specialty Start Date End Date Gerardo Nice MD [address] [place] [address] [address] [place], [phone] PCP - General Family Medicine 07/29/24 documented as of this encounter
--- OUTSIDE RECORDS SUMMARY | 2025-01-25 08:20 | XMS_ITS | Encounter Summary ---
Author Organization [facility] [place] [address] Care Team Providers Care Sound Effects Technician Name Role Phone Gerardo Nice MD Primary Care Provider [phone] Encounter Details Date Type Department Care Team (Late st Contact Info) Description 07/31/2024 Lab Requisition [facility] - Main Lab [address] [place] [address] Gerardo Nice MD 38 [facility] [address] [place], [address] Other specified sepsis (CMS/HCC V24, CMS/HCC [...] 07/31/2024 6:08 AM EDT Other specified sepsis ([facility] V24, [facility] V28) CBC AND DIFFERENTIAL Routine 07/31/2024 6:08 AM EDT Other specified sepsis ([facility] V24, [facility] V28) COMPREHENSIVE METABOLIC PANEL Routine 07/31/2024 6:08 AM EDT Other specified sepsis ([facility] V24, [facility] V28) documented in this encounter Results * (ABNORMAL) CBC auto differential (07/31/2024 6:08 AM EDT) WBC 9.4 4.8 - 10.8 K/mcL LAB HEMETOLOGY METHOD 07/31/2024 8:37 AM [facility] LAB RBC 3.20(L) 4.50 - 5.50 M/mcL LAB HEMETOLOGY METHOD 07/31/2024 8:37 AM [facility] LAB Hemoglobin 9.7(L) 13.5 - 17.5 g/dL LAB HEMETOLOGY METHOD 07/31/2024 8:37 AM [facility] LAB Hematocrit 30.1(L) 42.0 - 54.0 % LAB HEMETOLOGY METHOD 07/31/2024 8:37 AM [facility] LAB MCV 94.7 79.0 - 98.0 FL LAB HEMETOLOGY METHOD 07/31/2024 8:37 AM [facility] LAB MCH 30.5 27.0 - 32.0 pcg LAB HEMETOLOGY METHOD 07/31/2024 8:37 AM [facility] LAB MCHC 32.2 32.0 - 37.0 g/dL LAB HEMETOLOGY METHOD 07/31/2024 8:37 AM [facility] LAB RDW 15.6(H) 11.0 - 15.0 % LAB HEMETOLOGY METHOD 07/31/2024 8:37 AM [facility] LAB Platelets 214 130 - 400 K/mcL LAB HEMETOLOGY METHOD 07/31/2024 8:37 AM [facility] LAB MPV 10.9 7.0 - 11.0 FL LAB HEMETOLOGY METHOD 07/31/2024 8:37 AM [facility] LAB NRBC 0.0 <1.0 % LAB HEMETOLOGY METHOD 07/31/2024 8:37 AM [facility] NRBC Absolute 0.00 <0.10 K/mcL LAB HEMETOLOGY METHOD 07/31/2024 8:37 AM [facility] Neutrophils Relative 73.2 % LAB HEMETOLOGY METHOD 07/31/2024 8:37 AM [facility] Lymphocytes Relative 15.2 % LAB HEMETOLOGY METHOD 07/31/2024 8:37 AM [facility] Monocytes Relative 9.8 % LAB HEMETOLOGY METHOD 07/31/2024 8:37 AM [facility] Eosinophils Relative 0.8 % LAB HEMETOLOGY METHOD 07/31/2024 8:37 AM [facility] Basophils Relative 0.6 % LAB HEMETOLOGY METHOD 07/31/2024 8:37 AM [facility] Immature Granulocytes Relative 0.4 % LAB HEMETOLOGY METHOD 07/31/2024 8:37 AM [facility] LAB Neutrophils Absolute 6.90 1.50 - 7.00 K/mcL LAB HEMETOLOGY METHOD 07/31/2024 8:37 AM [facility] LAB Lymphocytes Absolute 1.43 1.00 - 5.00 K/mcL LAB HEMETOLOGY METHOD 07/31/2024 8:37 AM EDT [facility] Monocytes Absolute 0.92 0.20 - 1.00 K/mcL LAB HEMETOLOGY METHOD 07/31/2024 8:37 AM EDT [facility] LAB Eosinophils Absolute 0.08 0.00 - 0.50 K/[facility] LAB HEMETOLOGY METHOD 07/31/2024 8:37 AM EDT [facility] LAB Basophils Absolute 0.06 0.00 - 0.20 K/[facility] LAB HEMETOLOGY METHOD 07/31/2024 8:37 AM EDT [facility] Immature Granulocytes Absolute 0.04(H) 0.00 - 0.03 K/[facility] LAB HEMETOLOGY METHOD 07/31/2024 8:37 AM EDT [facility] Blood Venous blood specimen / Unknown Venipuncture / Unknown 07/31/2024 6:08 AM EDT 07/31/2024 8:14 AM EDT us Gerardo Nice MD LAB BLOOD ORDERABLES Final Resul t [facility] [address] [place] [address], * (ABNORMAL) Comprehensive metabolic panel (07/31/2024 6:08 AM EDT) Sodium 132(L) 133 - 145 mmol/L LAB CHEMISTRY METHOD 07/31/2024 9:15 AM EDT [facility] Potassium 4.3 3.5 - 5.5 mmol/L LAB CHEMISTRY METHOD 07/31/2024 9:15 AM EDT [facility] Chloride 95(L) 96 - 110 mmol/L LAB CHEMISTRY METHOD 07/31/2024 9:15 AM EDT [facility] CO2 29 21 - 32 mmol/L LAB CHEMISTRY METHOD 07/31/2024 9:15 AM EDT [facility] Anion Gap 8 3 - 11 LAB CHEMISTRY METHOD 07/31/2024 9:15 AM [facility] Glucose 221(H) 70 - 100 mg/dL LAB CHEMISTRY METHOD 07/31/2024 9:15 AM [facility] BUN 13 5 - 25 mg/dL LAB CHEMISTRY METHOD 07/31/2024 9:15 AM [facility] Creatinine 0.54(L) 0.70 - 1.30 mg/dL LAB CHEMISTRY METHOD 07/31/2024 9:15 AM [facility] LAB eGFR 114 >=60 mL/min/1. 73m2 LAB CHEMISTRY METHOD 07/31/2024 9:15 AM [facility] LAB Comment:Calculation based on the Chronic Kidney Disease Epidemiology Collaboration (CKD-EPI) equation refit without adjustment for race. BUN/Creatinine Ratio 24.1 LAB CHEMISTRY METHOD 07/31/2024 9:15 AM [facility] Calcium 7.7(L) 8.5 - 10.5 mg/dL LAB CHEMISTRY METHOD 07/31/2024 9:15 AM [facility] LAB AST (SGOT) 46(H) 10 - 42 unit/L LAB CHEMISTRY METHOD 07/31/2024 9:15 AM [facility] ALT (SGPT) 27 10 - 60 unit/L LAB CHEMISTRY METHOD 07/31/2024 9:15 AM [facility] Alkaline Phosphatase 91 42 - 121 unit/L LAB CHEMISTRY METHOD 07/31/2024 9:15 AM [facility] Total Protein 5.7(L) 6.0 - 8.0 g/dL LAB CHEMISTRY METHOD 07/31/2024 9:15 AM [facility] Albumin 1.5(L) 3.2 - 5.0 g/dL LAB CHEMISTRY METHOD 07/31/2024 9:15 AM [facility] Total Bilirubin 4.7(H) 0.0 - 1.4 mg/dL LAB CHEMISTRY METHOD 07/31/2024 9:15 AM EDT [facility] Blood Venous blood specimen / Unknown Venipuncture / Unknown 07/31/2024 6:08 AM EDT 07/31/2024 8:14 AM EDT us Gerardo Nice MD LAB BLOOD ORDERABLES Final Resul t [facility] [address] [place] [address], [place] [phone] documented in this encounter Visit Diagnoses Diagnosis Other specified sepsis (CMS/HCC V24, CMS/HCC V28) documented in this encounter Care Teams Sound Effects Technician Relationship Specialty Start Date End Date Gerardo Nice MD [address] [place] [address], [phone] PCP - General Family Medicine 07/29/24 documented as of this encounter
--- OUTSIDE RECORDS SUMMARY | 2025-01-25 08:21 | XMS_ITS | Encounter Summary ---
Author Organization [facility] [place] [address] Care Team Providers Care Founder And Chief Executive Officer Name Role Phone Gerardo Nice MD Primary Care Provider [phone] Encounter Details Date Type Department Care Team (Late st Contact Info) Description 08/14/2024 Lab Requisition [facility] - Main Lab [address] [place] [address] Gerardo Nice MD 38 [facility] [address] [place], [address] Other specified sepsis (CMS/HCC V24, CMS/HCC [...] 08/14/2024 5:40 AM EDT Other specified sepsis ([facility] V24, [facility] V28) CBC AND DIFFERENTIAL Routine 08/14/2024 5:40 AM EDT Other specified sepsis ([facility] V24, [facility] V28) COMPREHENSIVE METABOLIC PANEL Routine 08/14/2024 5:40 AM EDT Other specified sepsis ([facility] V24, [facility] V28) documented in this encounter [...] PM [facility] Neutrophils Relative 59.3 % LAB HEMETOLOGY METHOD 08/14/2024 12:01 PM [facility] Lymphocytes Relative 23.8 % LAB HEMETOLOGY METHOD 08/14/2024 12:01 PM [facility] Monocytes Relative 13.4 % LAB HEMETOLOGY METHOD 08/14/2024 12:01 PM [facility] Eosinophils Relative 2.7 % LAB HEMETOLOGY METHOD 08/14/2024 12:01 PM [facility] LAB Basophils Relative 0.5 % LAB [...] LAB Basophils Absolute 0.03 0.00 - 0.20 K/[facility] LAB HEMETOLOGY METHOD 08/14/2024 12:01 PM EDT [facility] LAB Immature Granulocytes Absolute 0.02 0.00 - 0.03 K/[facility] LAB HEMETOLOGY METHOD 08/14/2024 12:01 PM [facility] LAB Blood Venous blood specimen / Unknown Venipuncture / Unknown 08/14/2024 5:40 AM EDT 08/14/2024 10:55 AM EDT us Gerardo Nice MD LAB BLOOD ORDERABLES Final Resul t [facility] [address] [place] [address], * (ABNORMAL) Comprehensive metabolic panel (08/14/2024 5:40 [...] Resul t [facility] [address] [place] [address], documented in this encounter Visit Diagnoses Diagnosis Other specified sepsis (CMS/HCC V24, CMS/HCC V28) documented in this encounter Care Teams Founder And Chief Executive Officer Relationship Specialty Start Date End Date Gerardo Nice MD [address] [place] [address], [phone] PCP - General Family Medicine 07/29/24 documented as of this encounter
--- OUTSIDE RECORDS SUMMARY | 2025-01-25 08:21 | XMS_ITS | Encounter Summary ---
Author Organization [facility] Address [address] [place] [address] Phone Care Team Providers Care Personal Service Workers Name Role Phone Unavailable Primary Care Provider Unavailabl e Encounter Details Date Type Department Care Team (Late st Contact Info) Description 11/21/2024 Results Follow-Up [facility] [address] [place] [address] Yolanda Doll MD [address] [place] [address] Lab Scan Social History Tobacco [...] 11/22/2024 12:47 PM EDT [facility] [place] [facility] * [...]
--- OUTSIDE RECORDS SUMMARY | 2025-01-25 08:21 | XMS_ITS | Encounter Summary ---
Author Organization [facility] Address [address] [place] [address] Phone Care Team Providers Care Felt Hat Mellowing Machine Operator Name Role Phone Unavailable Primary Care Provider Unavailabl e Encounter Details Date Type Department Care Team (Late st Contact Info) Description 11/29/2024 Scanned Document [facility] [address] [place], [place] [id number] Yolanda Doll MD [address] [place] [address] Social History Tobacco Use Types [...]
--- OUTSIDE RECORDS SUMMARY | 2025-01-25 08:21 | XMS_ITS | Encounter Summary ---
Author Organization [facility] [place] [address] Care Team Providers Care Occupational Therapy Assistant Name Role Phone Gerardo Nice MD Primary Care Provider [phone] Encounter Details Date Type Department Care Team (Late st Contact Info) Description 08/21/2024 Lab Requisition [facility] - Main Lab [address] [place] [address] Gerardo Nice MD 38 [facility] [address] [place], [phone] Other specified sepsis (CMS/HCC V24, CMS/HCC [...] 08/22/2024 6:17 AM EDT Other specified sepsis ([facility] V24, [facility] V28) CBC AND DIFFERENTIAL Routine 08/22/2024 6:17 AM EDT Other specified sepsis ([facility] V24, [facility] V28) COMPREHENSIVE METABOLIC PANEL Routine 08/22/2024 6:17 AM EDT Other specified sepsis ([facility] V24, [facility] V28) documented in this encounter Results * (ABNORMAL) CBC auto differential (08/22/2024 6:17 AM EDT) WBC 5.9 4.8 - 10.8 K/mcL LAB HEMETOLOGY METHOD 08/22/2024 11:12 AM [facility] RBC 3.10(L) 4.50 - 5.50 M/mcL LAB HEMETOLOGY METHOD 08/22/2024 11:12 AM [facility] Hemoglobin 9.8(L) 13.5 - 17.5 g/dL LAB HEMETOLOGY METHOD 08/22/2024 11:12 AM [facility] Hematocrit 30.1(L) 42.0 - 54.0 % LAB HEMETOLOGY METHOD 08/22/2024 11:12 AM [facility] MCV 96.2 79.0 - 98.0 FL LAB HEMETOLOGY METHOD 08/22/2024 11:12 AM [facility] MCH 31.3 27.0 - 32.0 pcg LAB HEMETOLOGY METHOD 08/22/2024 11:12 AM [facility] MCHC 32.6 32.0 - 37.0 g/dL LAB HEMETOLOGY METHOD 08/22/2024 11:12 AM [facility] RDW 14.2 11.0 - 15.0 % LAB HEMETOLOGY METHOD 08/22/2024 11:12 AM [facility] Platelets 213 130 - 400 K/mcL LAB HEMETOLOGY METHOD 08/22/2024 11:12 AM [facility] MPV 10.6 7.0 - 11.0 FL LAB HEMETOLOGY METHOD 08/22/2024 11:12 AM [facility] NRBC 0.0 <1.0 % LAB HEMETOLOGY METHOD 08/22/2024 11:12 AM [facility] NRBC Absolute 0.00 <0.10 K/mcL LAB HEMETOLOGY METHOD 08/22/2024 11:12 AM [facility] Neutrophils Relative 64.0 % LAB HEMETOLOGY METHOD 08/22/2024 11:12 AM [facility] Lymphocytes Relative 21.1 % LAB HEMETOLOGY METHOD 08/22/2024 11:12 AM [facility] Monocytes Relative 11.7 % LAB HEMETOLOGY METHOD 08/22/2024 11:12 AM [facility] Eosinophils Relative 2.2 % LAB HEMETOLOGY METHOD 08/22/2024 11:12 AM [facility] Basophils Relative 0.7 % LAB HEMETOLOGY METHOD 08/22/2024 11:12 AM [facility] Immature Granulocytes Relative 0.3 % LAB HEMETOLOGY METHOD 08/22/2024 11:12 AM [facility] Neutrophils Absolute 3.79 1.50 - 7.00 K/mcL LAB HEMETOLOGY METHOD 08/22/2024 11:12 AM [facility] Lymphocytes Absolute 1.25 1.00 - 5.00 K/mcL LAB HEMETOLOGY METHOD 08/22/2024 11:12 AM EDT [facility] Monocytes Absolute 0.69 0.20 - 1.00 K/[facility] LAB HEMETOLOGY METHOD 08/22/2024 11:12 AM EDT [facility] Eosinophils Absolute 0.13 0.00 - 0.50 K/[facility] LAB HEMETOLOGY METHOD 08/22/2024 11:12 AM EDT [facility] Basophils Absolute 0.04 0.00 - 0.20 K/[facility] LAB HEMETOLOGY METHOD 08/22/2024 11:12 AM EDT [facility] Immature Granulocytes Absolute 0.02 0.00 - 0.03 K/[facility] LAB HEMETOLOGY METHOD 08/22/2024 11:12 AM [facility] Blood Venous blood specimen / Unknown Venipuncture / Unknown 08/22/2024 6:17 AM EDT 08/22/2024 10:16 AM EDT us Gerardo Nice MD LAB BLOOD ORDERABLES Final Resul t [facility] [address] [place] [address], * (ABNORMAL) Comprehensive metabolic panel (08/22/2024 6:17 AM EDT) Sodium 133 133 - 145 mmol/L LAB CHEMISTRY METHOD 08/22/2024 12:11 PM [facility] Potassium 3.6 3.5 - 5.5 mmol/L LAB CHEMISTRY METHOD 08/22/2024 12:11 PM [facility] Chloride 93(L) 96 - 110 mmol/L LAB CHEMISTRY METHOD 08/22/2024 12:11 PM [facility] CO2 30 21 - 32 mmol/L LAB CHEMISTRY METHOD 08/22/2024 12:11 PM [facility] Anion Gap 10 3 - 11 LAB CHEMISTRY METHOD 08/22/2024 12:11 PM [facility] Glucose 222(H) 70 - 100 mg/dL LAB CHEMISTRY METHOD 08/22/2024 12:11 PM [facility] BUN 11 5 - 25 mg/dL LAB CHEMISTRY METHOD 08/22/2024 12:11 PM [facility] Creatinine 0.65(L) 0.70 - 1.30 mg/dL LAB CHEMISTRY METHOD 08/22/2024 12:11 PM [facility] eGFR 108 >=60 mL/min/1. 73m2 LAB CHEMISTRY METHOD 08/22/2024 12:11 PM [facility] Comment:Calculation based on the Chronic Kidney Disease Epidemiology Collaboration (CKD-EPI) equation refit without adjustment for race. BUN/Creatinine Ratio 16.9 LAB CHEMISTRY METHOD 08/22/2024 12:11 PM [facility] Calcium 8.3(L) 8.5 - 10.5 mg/dL LAB CHEMISTRY METHOD 08/22/2024 12:11 PM [facility] AST (SGOT) 32 10 - 42 unit/L LAB CHEMISTRY METHOD 08/22/2024 12:11 PM [facility] ALT (SGPT) 17 10 - 60 unit/L LAB CHEMISTRY METHOD 08/22/2024 12:11 PM [facility] Alkaline Phosphatase 88 42 - 121 unit/L LAB CHEMISTRY METHOD 08/22/2024 12:11 PM [facility] Total Protein 6.6 6.0 - 8.0 g/dL LAB CHEMISTRY METHOD 08/22/2024 12:11 PM [facility] Albumin 1.8(L) 3.2 - 5.0 g/dL LAB CHEMISTRY METHOD 08/22/2024 12:11 PM [facility] Total Bilirubin 1.7(H) 0.0 - 1.4 mg/dL LAB CHEMISTRY METHOD 08/22/2024 12:11 PM EDT [facility] Blood Venous blood specimen / Unknown Venipuncture / Unknown 08/22/2024 6:17 AM EDT 08/22/2024 10:16 AM EDT us Gerardo Nice MD LAB BLOOD ORDERABLES Final Resul t [facility] [address] [place] [address], documented in this encounter Visit Diagnoses Diagnosis Other specified sepsis (CMS/HCC V24, CMS/HCC V28) documented in this encounter Care Teams Occupational Therapy Assistant Relationship Specialty Start Date End Date Gerardo Nice MD [address] [place] [address], [phone] PCP - General Family Medicine 07/29/24 documented as of this encounter
--- OUTSIDE RECORDS SUMMARY | 2025-01-25 08:22 | XMS_ITS | Encounter Summary ---
Author Organization [facility] Address [address] [place] [address] Phone Care Team Providers Care Labeling Specialist Name Role Phone Unavailable Primary Care Provider Unavailabl e Encounter Details Date Type Department Care Team (Late st Contact Info) Description 10/03/2024 Scanned Document [facility] [address] [place], [place] [phone] Yolanda Doll MD [address] [place] [address] Social History Tobacco Use Types [...]
--- OUTSIDE RECORDS SUMMARY | 2025-01-25 08:22 | XMS_ITS | Encounter Summary ---
Author Organization [facility] [place] [address] Care Team Providers Care Net Lead Architect Name Role Phone Gerardo Nice MD Primary Care Provider [phone] Encounter Details Date Type Department Care Team (Late st Contact Info) Description 08/25/2024 Lab Requisition [facility] - Main Lab [address] [facility] [place] [address] Gerardo Nice MD 38 [facility] [address] [place], [phone] Other specified sepsis (CMS/HCC V24, CMS/HCC [...] V28) documented in this encounter Care Teams Net Lead Architect Relationship Specialty Start Date End Date Gerardo Nice MD [address] [place] [address], [phone] PCP - General Family Medicine 07/29/24 documented as of this encounter
--- OUTSIDE RECORDS SUMMARY | 2025-01-25 08:22 | XMS_ITS | Encounter Summary ---
Author Organization [facility] Address [address] [place] [address] Phone Care Team Providers Care Aircraft Stress Analyst Name Role Phone Unavailable Primary Care Provider Unavailabl e Encounter Details Date Type Department Care Team (Late st Contact Info) Description 11/21/2024 Scanned Document [facility] [address] [place], [place] [phone] Yolanda Doll MD [address] [place] [address] Social History Tobacco Use Types [...]
--- OUTSIDE RECORDS SUMMARY | 2025-01-25 08:23 | XMS_ITS | Clinical Summary ---
Author Organization [facility] [address] Address [address] [place] [address] Care Team Providers Care Cross Country/Track And Field Coach Name Role Phone Unavailable Primary Care Provider [...] PM EDT Follow Up [facility] [address] [place], [place] [phone] Yolanda Doll MD Epidural abscess, L2-L5 (HC CODE) (Primary Dx); Acute osteomyelitis of lumbar spine (HC Code) ; Bacteremia due to group B Streptococcus; Hepatic cirrhosis, unspecified hepatic cirrhosis type, unspecified whether ascites present (HC Code) 2024 Travel 12/01/2024 Scanned Document [facility] [address] [place] [address] Yolanda Doll MD 11/29/2024 Scanned Document [facility] [address] [place] [address] Yolanda Doll MD 11/21/2024 Results Follow-Up [facility] [address] [place] [address] Yolanda Doll MD Lab Scan 11/21/2024 Telephone [facility] [address] [address] Wen Mohr RN Other 11/21/2024 Scanned Document [facility] [address] [address] Yolanda Doll MD 11/15/2024 Results Follow-Up [facility] [address] [place] [address] Yolanda Doll MD Lab Scan 11/15/2024 Scanned Document [facility] [address] [address] Yolanda Doll MD from Last 3 Months [...] l Result from Last [address] [place] [address]
--- OUTSIDE RECORDS SUMMARY | 2025-01-25 08:23 | XMS_ITS | Encounter Summary ---
Author Organization [facility] Address [address] [place] [address] Phone Care Team Providers Care Leather Goods Sales Representative Name Role Phone Unavailable Primary Care Provider Unavailabl e Encounter Details Date Type Department Care Team (Late st Contact Info) Description 12/01/2024 Scanned Document [facility] [address] [place], [place] [phone] Yolanda Doll MD [address] [place] [address] Social History Tobacco Use Types [...]
--- OUTSIDE RECORDS SUMMARY | 2025-01-25 08:23 | XMS_ITS | Encounter Summary ---
Author Organization [facility] Address [address] [place] [address] Phone Care Team Providers Care Multiple Games Dealer Name Role Phone Unavailable Primary Care Provider Unavailabl e Encounter Details Date Type Department Care Team (Late st Contact Info) Description 09/07/2024 Scanned Document [facility] [address] [place], [place] [phone] Yolanda Doll MD [address] [place] [address] Social History Tobacco Use Types [...]
--- OUTSIDE RECORDS SUMMARY | 2025-01-25 08:23 | XMS_ITS | Encounter Summary ---
Author Organization [facility] Address [address] [place] [address] Phone Care Team Providers Care Statistical Machine Servicer Name Role Phone Unavailable Primary Care Provider Unavailabl e Encounter Details Date Type Department Care Team (Late st Contact Info) Description 10/18/2024 Scanned Document [facility] [address] [place], [place] [phone] Yolanda Doll MD [address] [place] [address] Social History Tobacco Use Types [...]
--- OUTSIDE RECORDS SUMMARY | 2025-01-25 08:23 | XMS_ITS | Encounter Summary ---
Author Organization [facility] Address [address] [place] [address] Phone Care Team Providers Care Expressive Art Therapist Name Role Phone Unavailable Primary Care Provider Unavailabl e Encounter Details Date Type Department Care Team (Late st Contact Info) Description 10/19/2024 Scanned Document [facility] [address] [place], [place] [phone] Yolanda Doll MD [address] [place] [address] Social History Tobacco Use Types [...]
--- OUTSIDE RECORDS SUMMARY | 2025-01-25 08:23 | XMS_ITS | Clinical Summary ---
Author Organization [facility] Address [address] [place] [address] Phone Care Team Providers Care Print Inspector Name Role Phone Gerardo Ncie MD Primary Care Provider [phone] Allergies No known active allergies Medications cyclobenzaprine [...] 09/06/2024 Other cirrhosis of liver (CMS/HCC V24, [facility]/HCC V 28) 09/06/2024 Type 2 diabetes mellitus wit hout complication, without long-term current use of insulin (CMS/HCC V24, [facility]/HCC V28) 09/06/2024 Sepsis (CMS/HCC V24, [facility]/HCC V28) 07/20/2024 Large cell lymphoma (CMS/HCC V24, [facility]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 10/2008 Morbid obesity (CMS/HCC V24, [facility] V28) 2008 Elevated blood pressure read ing without diagnosis of hypertension 08/24/2008 Surgical History Surgery Date Site/Laterality Comments ROTATOR CUFF REPAIR PROCEDURE: HISTORICAL ROTATOR CUFF REPAIR; COMMENT: bilateral COLONOSCOPY 09/2009 PROCEDURE: TX COLONOSCOPY FLX DX W/COLLJ SPEC WHEN PFRMD; COMMENT: Up to cecum, good preparation, 2 small polyps removed:tubular adenoma/hyperplastic, diverticulosis Medical History Medical History Date Comments Morbid obesity (CMS/HCC V24, [facility]/HCC V28) 08/24/2008 DX:Morbid obesity (HCC) 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 V24, CMS/HCC V28) DX: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 (HCC) Family History Relation Name Status Comments Father Alive low blood press ure, hyperlipidemia, [place] at age 65, hemochromatosis Mother Alive obesity, [...] 08/22/2024 6:17 AM EDT Other specified sepsis ([facility] V24, [facility] V28) HEPATITIS PANEL, ACUTE WITH REFLEX TO CONFIRMATION Add-On 07/23/2024 6:55 AM EDT HEMOGLOBIN A1C Add-On 07/20/2024 10:19 AM EDT from Last 3 Months or Most Recently Relevant to Health Maintenance Results * Hepatitis panel, acute with reflex to confirmation (07/23/2024 6:55 AM EDT) Hepatitis B Surface Ag Negative Negative LAB CHEMISTRY METHOD 07/24/2024 11:14 PM EDT [facility] Hepatitis A Antibody IgM Negative Negative LAB CHEMISTRY METHOD 07/24/2024 11:14 PM EDT [facility] Hep B Core IgM Negative Negative LAB CHEMISTRY METHOD 07/24/2024 11:14 PM EDT [facility] Hepatitis C Antibody Negative Negative LAB CHEMISTRY METHOD 07/24/2024 11:14 PM EDT [facility] Blood Venous blood specimen / Unknown Venipuncture / Unknown 07/23/2024 6:55 AM EDT 07/23/2024 7:02 AM EDT Ivan Lewis MD LAB BLOOD ORDERABLE S Final Result Performing Organization Address [facility]/ZIP Co de Phone Number [facility] [address] [place] [address], [place] [phone] * (ABNORMAL) Hemoglobin A1c (07/20/2024 10:19 AM EDT) Hemoglobin A1C 8.9(H) <6.5 % LAB CHEMISTRY METHOD 07/21/2024 10:49 AM EDT [facility] Mean Bld Glu Estim. 209 mg/dL LAB CHEMISTRY METHOD 07/21/2024 10:49 AM EDT [facility] Blood Venous blood specimen / Unknown Venipuncture / Unknown 07/20/2024 10:19 AM EDT 07/20/2024 10:44 AM EDT us Cisco Mcneil MD LAB BLOOD ORDERABLES Final Result [facility] [address] [place] [address], [place] [phone] from Last 3 Months or Most Recently Relevant to Health Maintenance Insurance [facility] Advance Directives Documents on File Type Date Recorded Patient Manager College Expl anation Advance Directives and Living Will [...] Relationship Communication Emily Shook Health Care Agent [phone] (Mobile ) Gustavo Joselyn Brother First Alternate Health Care Agent Care Teams Print Inspector Relationship Specialty Start Date End Date Gerardo Nice MD [address] [place] [address], [phone] PCP - General Family Medicine 07/29/24
--- OUTSIDE RECORDS SUMMARY | 2025-01-25 08:23 | XMS_ITS | Encounter Summary ---
Author Organization [facility] Address [address] [place] [address] Phone Care Team Providers Care Retort Fireman Name Role Phone Unavailable Primary Care Provider Unavailabl e Encounter Details Date Type Department Care Team (Late st Contact Info) Description 10/11/2024 Scanned Document [facility] [address] [place], [place] [id number] Yolanda Doll MD [address] [place] [address] Social History Tobacco Use Types [...]
--- OUTSIDE RECORDS SUMMARY | 2025-01-25 08:23 | XMS_ITS | Encounter Summary ---
Author Organization [facility] Address [address] [place] [address] Phone Care Team Providers Care Director Of Midwifery/Staff Midwife Name Role Phone Unavailable Primary Care Provider Unavailabl e Encounter Details Date Type Department Care Team (Late st Contact Info) Description 11/15/2024 Scanned Document [facility] [address] [place], [place] [id number] Yolanda Doll MD [address] [place] [address] Social History Tobacco Use Types [...]
--- OUTSIDE RECORDS SUMMARY | 2025-01-25 08:24 | XMS_ITS | Data Portability ---
Author Organization [facility], Main Office Address [address] [place] [address] [address] [place] [address] Care Team Providers Care Oracle Application Architect Name Role Phone [facility] OTHER SADA IBANEZ Primary Care Provider [phone] Assessment Encounter Date Assessment Date Assessment LastModified [...] and Address Organization Details Recorded Time Sepsis 68159887 Active 2024 Not Available [facility] 18:36:59 Type 2 diabetes mellitus without complicati on 384085409 Active 2024 Not Available [facility] 18:37:00 Low back pain 680604555 Active 2024 Not Available [facility] 16:46:30 Alcoholic cirrhosis 724788110 Active 2024 Not Available [facility] 18:37:02 Hypo-osmol ality and or hyponatrem ia 823947047 Active 2024 Not Available [facility] 18:37:57 Pain of left knee region 109320550254 109 Active 2024 Not Available [facility] 18:38:00 Diffuse large B-cell lymphoma (tiffany/sys temic with skin involvemen t) 939366536 Active 2024 Not Available [facility] 16:46:31 Nerve root disorder 07354735 Active 2024 Not Available [facility] 18:38:11 Morbid obesity 375947515 Active 2024 Not Available [facility] 18:38:12 Acute kidney injury 50030673 Active 2024 Not Available [facility] 16:46:27 Lymphedema 288321869 Active 2024 Not Available [facility] 5 16:45:33 Muscle weakness 00784668 Active 2024 Not Available [facility] 5 16:39:11 Unsteady when standing 268135740 Active 2024 Not Available [facility] 5 16:46:28 Difficulty walking 069349338 Active 2024 Not Available [facility] 5 08:39:34 Edema of lower extremity 894283827 Active 2024 Dk Bingham MD [address], [address], [place], [address], [facility] 5 12:05:12 Diffuse large B-cell lymphoma 504092850 Active 2024 Dk Bingham MD [address], [address], [place], [address], [facility] 5 12:05:17 Problem Notes None recorded. [...] Recorded Time Tdap 08/14/2023 completed Ludin Red[facility]Andujar [facility], [facility] 07/31/2024 16:24:48 Tdap 01/29/2021 completed Ludin Red-Andujar [facility], [facility] 07/31/2024 16:24:54 influenza, unspecified formulation 01/29/2021 completed Ludin Teofilo-Andujar [facility] 07/31/2024 16:25:05 influenza, unspecified formulation 12/11/2021 completed Ludin Teofilo-Andujar [facility] 07/31/2024 16:25:17 Hep A, unspecified formulation 01/04/2009 completed Ludin Teofilo-Andujar [facility] 07/31/2024 16:25:37 Hep A, unspecified formulation 09/17/2009 completed Ludin Teofilo-Andujar [facility] 07/31/2024 16:25:41 SARS-COV-2 (COVID-19) vaccine, UNSPECIFIED 05/15/2020 completed Ludin Teofilo-Andujar [facility] 07/31/2024 16:25:54 SARS-COV-2 (COVID-19) vaccine, UNSPECIFIED 06/05/2020 completed [facility] Teofilo[facility]Andujar [facility] 07/31/2024 16:25:59 SARS-COV-2 (COVID-19) vaccine, UNSPECIFIED 01/29/2021 completed [facility] Teofilo-Andujar [facility] 07/31/2024 16:26:04 SARS-COV-2 (COVID-19) vaccine, UNSPECIFIED 12/11/2021 completed [facility] Teofilo-Andujar [facility] 07/31/2024 16:26:08 Past Encounters Encounter ID Performer Location Encounter Start Date Encounter Closed Date Diagnosis/Indication Diagnosis SNOMED-CT Code Diagnosis ICD10 Code Diagnosis IMO Codes Diagnosis Note [id number] [address] [place], [place] [address] 07/29/2024 09:02:38 08/31/2024 15:39:50 Gram positive sepsis 322065395 A41.89 24204 Strep beta-hemol ytic group B with UNKNOWN source positive 07/20, 07/21; subsequent cultures x 2 negative; neg 2D echomainta in midline RUAcont IV rocpehn (ends 08/04)monito r cbc and fevers Asthenia 68619817 R53.1 35635 admit to PT/OTmonit or progress with therapy Enzyme lev el - finding 771085265 R74.01 668869 in setting of cirrhosis, mild ascites, hypovolemi c hyponatrem iastarted on spironolac tone/lasix inpatient work-up unrevealin g with plans for further care per [facility] GI/Livermo nitor CMPneeds GI f/up Chronic low back pain 27 0463922 M54.42 M54.41 G89.29 03239594 recent MRI negative other than bugling discsstart sched tylenol 650 tidstart oxy 5 q6h prn x 5 daysmonito r pain and tolerance to therapy Type 2 radha betes mellitus 30618842 E11.69 E78.5 3856075 recent A1c 8.9cont home metforminm onitor blood sugars Essential hypertension 45036761 I10 84344 not currently on BP medsmonito r need to start on medication srecently started on diuretic, now on bumex. [id number] KEV GARCIA REDHÉCTOR [address] [place] [address] 08/01/2024 09:22:20 08/08/2024 10:25:04 Gram positive sepsis 450330643 A41.89 56327 bacteremia unknown source/Str ep beta-hemol ytic group B4/24 +Blood cx repeat blood cx 07/22 [id number] echocardio gram negative for any vegetation .CT scan chest and ultrasound abdomen showed cirrhosis and cholelithi asis otherwise no significan t findings.d ischarged on IV therapycon t ceftriaxon e 2 gm until 08/04/24 Asthenia 82996243 R53.1 42805 cont PT/OT eval Type 2 radha betes mellitus 80156512 E11.69 E78.5 1671750 recent A1c 8.9, inpatient use of Lantus on his outpatient metformin Essential hypertension 27348248 I10 25233 stable,not currently on BP medsmonito r need to start on medication srecently started on diuretic, now on bumex. [id number] Dk Bingham MD [facility] [address] [place] [address] 08/02/2024 10:52:06 08/10/2024 11:59:12 Morbid obesity 582183087 E66.01 Gram positive sepsis 194 928956 A41.89 40022 Strep beta-hemol ytic group B with UNKNOWN source positive 07/20, 07/21; subsequent cultures x 2 negative; neg 2D echoon recommenda tion from ID, complete IV Rocephin 08/04/2024 Enzyme lev el - finding 587845260 R74.01 323312 in setting of cirrhosis, mild ascites, hypovolemi c hyponatrem iastarted on spironolac tone/lasix inpatient work-up unrevealin g with plans for further care per [facility] GI/Liverre check labs when appropriat e Chronic low back pain 27 7000068 M54.42 M54.41 G89.29 83290589 recent MRI negative other than bugling discsmild exacerbati on likely sec to being in bed; monitor for nowNot unreasonab le to CHECK UA and electrolyt es with use of K-sparing diuretic and torsemide Pain of le ft knee region 6082801137 51810 M25.562 32863109 recent Ortho evaluation , dry tap Type 2 radha betes mellitus 26732566 E11.69 E78.5 2086709 recent A1c 8.9, inpatient use of Lantus on his outpatient metformin Diffuse la rge B-cell lymphoma 848675902 C83.3A 8133999964 in remission >10 yearsresid ual LEFT leg lymphedema Edema of l ower extremity 969386087 R60.0 72443 recent doppler U/S negative. LEFT >>R Essential hypertension 00869295 I10 38123 monitor on new diuretics; normal renal function but may benerif from YANCY-I/ARB Erectile dysfunction 860 992789 E11.69 N52.1 520628 Ejection murmur 23059050 R01.1 7066572 appears to have had a transthora cic echo; continue to monitor; consider REBECCA if decompensa yoandy Asthenia 95717699 R53.1 88622 PT/OT eval For resuscitation 698234 001 Z78.[id number] [place] [address] 08/03/2024 14:37:04 08/08/2024 11:42:50 Low back pain 505969635 M54.50 chronicrec ent MR lumbar spine showed multilevel degenerati ve changeson scheduled tylenol 650 mg TIDcontinu e oxycodone Q4 prn Pain of le ft knee region 7933669868 50606 M25.562 worsening pain most likely due to therapycon t apap and oxycodone Type 2 radha betes mellitus 32119339 E11.9 00120177 recent A1c 8.9no recent bgldiscuss ed with nursingacc ucheck TID with mealsstart lispro SSC coveragemo nitor need to add additional medication tx with lantus in acute care. [id number] [place] [address] 08/08/2024 09:52:21 08/10/2024 11:52:23 Low back pain 416406280 M54.50 stable chronicrec ent MR lumbar spine showed multilevel degenerati ve changeson scheduled tylenol 650 mg TIDcontinu e oxycodone Q4 prn Pain of le ft knee region 6890062869 24199 M25.562 stable today; lying in bedcont apap and oxycodone Type 2 radha betes mellitus 65101115 E11.9 14220059 recent A1c 8.94-5 days bgl mainly mid 200she is without s/sx of hyperglyce miacont accucheck TID with mealscont lispro SSC coverage consider adding metformin for better glucose control.tx with lantus in acute care. [id number] [place] [address] 08/10/2024 12:30:43 08/11/2024 10:58:58 Acute diarrhea 339288678 R19.7 36138 resolvingr eportedly had 12-14 loose stoolsmost likely was given laxatives for previous c/o constipati onper nursing today, stool is soft.stool negative for cdiff. [id number] [place] [address] 08/15/2024 07:51:26 08/17/2024 09:58:52 Acute diarrhea 328695522 R19.7 92471 resolved Low back pain 394360211 M54.50 stablerece nt MR lumbar spine showed multilevel degenerati ve changeson scheduled tylenol 650 mg TIDcontinu e oxycodone Q4 prn Pain of le ft knee region 1885981484 66094 M25.562 stableIncr ease pain after working with therapycon t apap and oxycodone Type 2 radha betes mellitus 00387375 E11.9 83385285 recent A1c 8.9accu-ch ecks mainly in the 200's before mealsasymp tomaticwil l increase metformin from 500 to 750 mg BIDdiscuss ed with nursingcon t accucheck TID with mealscont lispro SSC coveragemo nitor need to add additional medication tx with lantus in acute care. [id number] [place] [address] 08/17/2024 08:42:55 08/25/2024 10:49:27 Low back pain 057816304 M54.50 stablerece nt MR lumbar spine showed multilevel degenerati ve changeson scheduled tylenol 650 mg TIDcontinu e oxycodone Q4 prn Pain of le ft knee region 0088385596 06395 M25.562 stableIncr ease pain after working with therapycon t apap and oxycodone Type 2 radha betes mellitus 66979388 E11.9 82394656 metformin now 750 mg BID- received first dose on 08/15 evening,co nt accucheck TID with mealscont lispro SSC coveragemo nitor need to add additional medication tx with lantus in acute care. [id number] MISBAH [place] [address] 08/23/2024 11:42:25 08/25/2024 13:13:56 Low back pain 970257534 M54.50 stablerece nt MR lumbar spine showed multilevel degenerati ve changeson scheduled tylenol 650 mg TIDcontinu e oxycodone 5 mg q6h prncont salonpas to lower back dailycont flexeril 10 mg q8h prn for spasmsf/up with pcp Pain of le ft knee region 6554926902 60592 M25.562 stablehas pain after working with therapycon t apap and oxycodone as abovef/up with pcprecs to f/up with ortho on dc Type 2 radha betes mellitus 86144413 E11.9 87839679 many sugars still > 200 with increased metformini ncrease to metformin 850 mg bidcont accucheck tid w/ ss lispro coveragef/ up with pcp Gram positive sepsis 194 450056 A41.89 23813 bacteremia unknown source/Str ep beta-hemol ytic group B4/24 +Blood cx repeat blood cx 07/22 negativeco mpleted IV antbx Asthenia 16752334 R53.1 08897 completed PT/OT evalhome with services Essential hypertension 75120792 I10 39506 majority of BP above goaldt h/o cirrhosis and mild tachycardi a with HR often in the low 100 range = bb will help with bothstart coreg 6.25 mg bidmonitor bp bid and repeat labs with pcp Cirrhosis of liver 007 K74.69 7234076 w/ mild asciteson bumex and aldactonem onitor [...] Jacques Member ID Guarantor Name 09/28/2024 1 [facility] [id number] Martin Alves [id number] Martin Alves 08/08/2024 1 [facility] (MEDICARE REPLACEMENT/A DVANTAGE - PPO) [id number] Martin Alves [id number] Martin Alves Notes Date Note Type Note [...] currently pain is controlled. SINDIKEV CHANG [address], [address], [place], [address], [facility] 08/09/2024 22:02:29 08/10/2024 text/html ROS as noted in the [facility] 58 yr old male patient seen for acute rounding visit. Per nursing patient having diarrhea, concerned for possible infectious cause due to recent abx use. otherwise he is doing well, he previously had c/o constipation. KEV GARCIA [address], [address], [place], [address], [facility] 08/11/2024 03:12:31 08/15/2024 text/html ROS as noted in the [facility] 58 yr old male patient seen for acute rounding visit.Medically he has been stable, he continues to feel weak but states strength improving with therapy. Reports back pain and left knee pain 4/10 after working with therapy. otherwise pain is controlled with current meds. FS mainly in the 200's, options discussed. KEV GARCIA [address], [address], [place], [address], [facility] 08/15/2024 16:01:02 08/17/2024 text/html ROS as noted in the [facility] 58 yr old male patient seen for [...] for months to years. KEV GARCIA [address], [address], [place], [address], [facility] 08/17/2024 16:29:32 08/23/2024 text/html ROS as noted in the [facility] 58 yr old male patient seen for [...] meds and services in place. MISBAH WARNER, BIOLOGIST AIDE-C [address] [place] [address], [address], [place], [address], [facility] - [facility] 08/23/2024 15:53:58
--- OUTSIDE RECORDS SUMMARY | 2025-01-25 08:25 | XMS_ITS | Clinical Summary ---
Author Organization [facility] Address [address] [place] [address] Care Team Providers Care Spinner Cap Frame Name Role Phone Sammie Estrella PA-C Primary Care Provider [phone] Allergies No known active allergies Medications cyclobenzaprine [...] mg total) by mouth daily. 30 tablet Active Additional Information Patient not taking.Reported on [...] CBC, CMP, ESR, CRP and fax to [phone] Assessment & Plan (11/05/2024 1:58 PM EDT): Recent L4-L5 osteomyelitis epidural abscess. Previous admission s/p L3 lumbar decompression and fusion 10/12 Continue IV Rocephin until 11/23 per ID recommendations ID following; Obtain q. Wednesday CBC, CMP, ESR, CRP and fax to [phone] Assessment & Plan (11/04/2024 1:32 PM EDT): Recent L4-L5 osteomyelitis epidural abscess. Previous admission s/p L3 lumbar decompression and fusion 10/12 Continue IV Rocephin until 11/23 ID following; Obtain q. Wednesday CBC, CMP, ESR, CRP and fax to [phone] Assessment & Plan (11/03/2024 4:34 PM EDT): Recent L4-L5 osteomyelitis epidural abscess. Previous admission s/p L3 lumbar decompression and fusion 10/12 Continue IV Rocephin until 11/23 ID following; Obtain q. Wednesday CBC, CMP, ESR, CRP and fax to [phone] Assessment & Plan (11/02/2024 3:45 PM EDT): Recent L4-L5 osteomyelitis epidural abscess. Previous admission s/p L3 lumbar decompression and fusion 10/12 Continue IV Rocephin until 11/23 ID following; Obtain q. Wednesday CBC, CMP, ESR, CRP and fax to [phone] Assessment & Plan (11/01/2024 4:35 PM EDT): Recent L4-L5 osteomyelitis epidural abscess. Previous admission s/p L3 lumbar decompression and fusion 10/12 Continue IV Rocephin until 11/23 ID following; Obtain q. Wednesday CBC, CMP, ESR, CRP and fax to [phone] Assessment & Plan (10/31/2024 3:51 PM EDT): [...] Description 11/20/2024 1:00 PM EDT Office Visit [facility] [place] [address] [facility] [place] [phone] Merle Villafana PA S/P lumbar fusion (Primary Dx) 11/20/2024 8:15 AM EDT Ancillary Procedure [facility] [place] [address] [place] [facility] [place] [address] Merle Villafana PA S/P lumbar fusion 11/20/2024 Travel 11/17/2024 Orders Only [facility] [place] [address] [place] [facility] [place] [phone] Merle Villafana PA S/P lumbar fusion (Primary Dx) 11/16/2024 2:00 PM EDT Clinical Support Food and Nutrition Services [address] [facility] [address] [place] [address] Mahesh Interiano MD Petracca, Nicole L, RD Weakness (Primary Dx); Controlled type 2 diabetes mellitus without complication, without long-term current use of insulin (HCC) 11/14/2024 Telephone [facility] [place] [address] [place] [facility] [place] [phone] Andrey Bailon MD 11/13/2024 Orders Only [address] [place] [address] Mahesh Interiano MD Acute on chronic anemia 11/06/2024 10:43 AM EDT Anesthesia Event [facility] [address] [place] [address], [place] [address] Rossy Schwartz MD Edison, Amanda C, PA-C 11/06/2024 9:58 AM EDT - 11/06/2024 10:44 AM EDT Surgery [facility] [address] [place] [address], [place] [phone] Lisa Duarte DO COLONOSCOPY 11/03/2024 2:15 PM EDT Anesthesia Event [facility] [address] [place] [address], [place] [address] Bonifacio Garrido MD Ritchie, Agatha T, PA-C 11/03/2024 1:30 PM EDT - 11/03/2024 2:00 PM EDT Surgery [facility] [address] [place] [address], [place] [address] Lisa Duarte, ENDOSCOPY UPPER 10/28/2024 4:43 PM EDT - 11/07/2024 1:04 PM EDT Hospital Encounter [address] [place] [address] Ann Marie Bloom MD Thakurathi, Priyesh, MD Pokhrel, Kamal, MD Botchway, Sylvia N, MD Mohamed, Kareem A, MD Weakness (Primary Dx); Hypokalemia; Confusion; Somnolence; Acute on chronic anemia; Drug-induced constipation; Osteomyelitis of lumbar spine (HCC) Discharge Disposition: Home with Health Care Services 10/28/2024 Travel from Last 3 Months Social History Tobacco Use Types Packs/Day Years Used Date Smoking Tobacco: Never Smokeless Tobacco: Never Tobacco Cessation:Counseling Given: Not Answered Alcohol Use Standard Drinks/Week Comments Never 0 (1 standard drink = 0.6 oz pur e alcohol) [facility] Utilities Answer Date Recorded In the past 12 months has e [employer], gas, oil, or water company threatened to [...] any time in the past 12 m cox [place], were you homeless or living in a correction (including now)? No 10/29/2024 Sex and Gender [...] Clinical Support Food and Nutrition Services 80 [facility] [address] [place] [address] 02/19/2025 2:00 PM EST Office Visit [facility] [place] [address] [place] [address] Andrey Bailon MD [address] [place] [address] Health Maintenance Due Date Last Done Comments Hepatitis C Virus Screening 1965 Lipid Panel 12/03/1973 Ophthalmology Exam 12/03/1973 HIV Screening 12/03/1976 Microalbumin/Creatinine Ratio Urine 12/03/1981 DTaP/Tdap/Td Vaccines (1 - Tdap) 12/03/1982 Pneumococcal Vaccines 50+ (1 of 2 - PCV) 12/03/1982 RSV Vaccine 50 years and older and Patients (1 - Risk 50-74 years 1-dose series) 12/03/2013 Zoster (Shingles) Vaccine (1 of 2) 12/03/2013 Influenza Vaccine 10/27/2024 12/11/2021, 01/29/2021 COVID-19 Vaccine ( - season) 2024 12/11/2021, 01/29/2021, 01/28/2021, Additional history exists Hemoglobin A1C 05/01/2025 10/29/2024, 07/20/2024 Foot Exam 09/11/2025 09/11/2024, 08/27, 09/11/2024, Additional history exists Creatinine with GFR 11/06/2025 11/06/2024, 11/05/2024, 11/04/2024, Additional history exists Colonoscopy 11/06/2034 11/06/2024 Hepatitis B Vaccines Aged Out No long er eligible based on patient's age to complete this topic Medical Devices Implanted Type Area Shell Core And Molding Supervisor Device Identifier Shelf Expiration Date Model / Serial / Lot Iflx-Gf-100 Influx Proteios Xl - [id number] Implanted:Qty: 1 on 10/12/2024 by Andrey Bailon MD at [facility] Tissue Bilatera l: Back [employer] 04/30/2029 IFLX-GF- 100 / [id number] / Iflx-Fw-05 Graft Bone Influx Plus Demineralized Bone Matrix 5 Cc Allogr - [id number] Implanted:Qty: 1 on 10/12/2024 by Andrey Bailon MD at [facility] Tissue Bilatera l: Back [employer] 06/23/2027 IFLX-FW- 05 / [id number] / [id number] Iflx-Fw-05 Graft Bone Influx Plus Demineralized Bone Matrix 5 Cc Allogr - [id number] Implanted:Qty: 1 on 10/12/2024 by Andrey Bailon MD at [facility] Tissue Bilatera l: Back [employer] 06/23/2027 IFLX-FW- 05 / [id number] / [id number] 620-010 Filler Bone Void 10cc 20cc Calcium Slf Stimulan Rpd Cure Kit - [id number] Implanted:Qty: 1 on 10/12/2024 by Andrey Bailon MD at [facility] Void Filler Bilatera l: Back [employer] - A BTG INT [id number] 04/28/2027 620-010 / / [id number] 7.5 X 50ml Screw Implanted:Qty: 2 on 10/12/2024 by Andrey Bailon MD at [facility] N/A: Spine Lumbar [facility] [id number] / / 7.5 X 55mm Screw Implanted:Qty: 4 on 10/12/2024 by Andrey Bailon MD at [facility] N/A: Spine Lumbar [facility] [id number] / / 9.0 X 110 Screw Implanted:Qty: 2 on 10/12/2024 by Andrey Bailon MD at [facility] N/A: Spine Lumbar [facility] [id number] 0 / / Set Screw Implanted:Qty: 8 on 10/12/2024 by Andrey Bailon MD at [facility] N/A: Spine Lumbar [facility] [id number] / / 120mm Adam Implanted:Qty: 2 on 10/12/2024 by Andrey Bailon MD at [facility] N/A: Spine Lumbar [facility] [id number] / / Procedures Procedure Name Priority [...] ECG 12-LEAD STAT 10/28/2024 4:54 PM EDT from Last 3 Months Results [...] since the comparison x-rays. us Merle MAIER IMSamantha DIAGNOSTIC IMAGIN G ORDERABLES Final Result * (ABNORMAL) POCT Glucose, Fingerstick (11/07/2024 11:48 AM EDT) Only the most recent of49 resultswithin the time period is included. [facility] POC Glucose 216(H) 65 - 99 mg/dL 11/07/2024 11:52 AM EDT Blood specimen / Unknown 11/07/2024 11:48 AM EDT 11/07/2024 11:52 AM EDT us Ann Marie Bloom MD POINT OF CARE TEST ORDERABLES Fi nal Result HOSPITAL LAB See Below * (ABNORMAL) COMPLETE BLOOD COUNT, WITHOUT DIFFERENTIAL (11/07/2024 7:00 AM EDT) Only the most recent of11 resultswithin the time period is included. [facility] White Blood Cell Count 4.7 4.0 - 11.0 Thou/uL 11/07/2024 10:49 AM [facility] Platelet Count 115(L) 150 - 450 Thou/uL 11/07/2024 10:49 AM [facility] Hemoglobin 7.7(L) 13.0 - 17.7 g/dL 11/07/2024 10:49 AM [facility] Hematocrit 24.1(L) 39.0 - 54.0 % 11/07/2024 10:49 AM [facility] Red Blood Cell Count 2.63(L) 4.50 - 6.20 Mil/uL 11/07/2024 10:49 AM [facility] MCV 92 80 - 100 fL 11/07/2024 10:49 AM [facility] MCH 29.3 27.0 - 31.0 pg 11/07/2024 10:49 AM [facility] MCHC 32.0 30.0 - 36.0 g/dL 11/07/2024 10:49 AM [facility] RDW 21.3(H) 11.5 - 14.5 % 11/07/2024 10:49 AM [facility] MPV 11.1 7.5 - 12.5 fL 11/07/2024 10:49 AM [facility] Immature Platelet Fraction 5.6 1.2 - 8.6 % 11/07/2024 10:49 AM [facility] Blood Blood specimen / Unknown 11/07/2024 7:00 AM EDT 11/07/2024 10:19 AM EDT us Mahesh Interiano MD LAB BLOOD ORDERABLES Final R esult Performing Organization Address City/[facility] [place] [address], [address] [address] * Erythrocyte Sedimentation Rate (ESR) (11/06/2024 6:00 AM EDT) Erythrocyte Sediment Rate (ESR) 19 <20 MM/HR 11/06/2024 7:06 AM EDT [facility] Blood Blood specimen / Unknown 11/06/2024 6:00 AM EDT 11/06/2024 6:49 AM EDT us Mahesh Interiano MD LAB BLOOD ORDERABLES Final R esult Performing Organization Address [facility] [place] [address], [address] [address] * (ABNORMAL) C-Reactive Protein (11/06/2024 6:00 AM EDT) [facility] C-Reactive Protein 1.60(H) 0 - 0.49 mg/dL 11/06/2024 7:39 AM EDT [facility] Blood Blood specimen / Unknown 11/06/2024 6:00 AM EDT 11/06/2024 6:49 AM EDT us Mahesh Interiano MD LAB BLOOD ORDERABLES Final R esult Performing Organization Address [facility] [place] [address], [address] [address] * Magnesium (AM) (11/06/2024 6:00 AM EDT) Only the most recent of8 resultswithin the time period is included. Magnesium 1.6 1.6 - 2.7 mg/dL 11/06/2024 7:39 AM [facility] Blood Blood specimen / Unknown 11/06/2024 6:00 AM EDT 11/06/2024 6:49 AM EDT Mahesh Interiano MD LAB BLOOD ORDERABLES Final R esult [address] [address], [address] [address] * (ABNORMAL) Comprehensive Metabolic Panel (11/06/2024 6:00 AM EDT) Only the most recent of3 resultswithin the time period is included. Glucose 183(H) 65 - 99 mg/dL 11/06/2024 7:39 AM [facility] Comment:Fasting: <100 mg/dL, Non-Fasting: <200 mg/dL (ADA 2005) Blood Urea Nitrogen (BUN) 7(L) 8 - 21 mg/dL 11/06/2024 7:39 AM [facility] Creatinine 0.8 0.5 - 1.3 mg/dL 11/06/2024 7:39 AM [facility] eGFR >90 >59 11/06/2024 7:39 AM [facility] Comment:CKD-EPI (2020) in mL /min/1.73 sq meters. Sodium 140 136 - 145 mmol/L 11/06/2024 7:39 AM [facility] Potassium 4.1 3.4 - 5.3 mmol/L 11/06/2024 7:39 AM [facility] Chloride 105 98 - 107 mmol/L 11/06/2024 7:39 AM [facility] CO2 23 22 - 33 mmol/L 11/06/2024 7:39 AM [facility] Calcium 9.1 8.7 - 10.5 mg/dL 11/06/2024 7:39 AM [facility] Alkaline Phosphatase 124 45 - 128 U/L 11/06/2024 7:39 AM [facility] Aspartate Aminotrans (AST) 43 10 - 55 U/L 11/06/2024 7:39 AM [facility] Alanine Aminotrans (ALT) 21 10 - 55 U/L 11/06/2024 7:39 AM T [facility] Bilirubin, Total 2.5(H) 0.2 - 1.0 mg/dL 11/06/2024 7:39 AM [facility] Protein, Total 6.1(L) 6.3 - 8.3 g/dL 11/06/2024 7:39 AM EDT [facility] Albumin 3.4(L) 3.5 - 5.0 g/dL 11/06/2024 7:39 AM [facility] BUN/Creatinine Ratio 9(L) 10.0 - 25.0 Ratio 11/06/2024 7:39 AM [facility] Globulin 2.7 1.5 - 3.9 g/dL 11/06/2024 7:39 AM [facility] Albumin/Globulin Ratio 1.3 1.0 - 3.0 Ratio 11/06/2024 7:39 AM [facility] Anion Gap 12 7 - 17 11/06/2024 7:39 AM [facility] Blood Blood specimen / Unknown 11/06/2024 6:00 AM EDT 11/06/2024 6:49 AM EDT Mahesh Interiano MD LAB BLOOD ORDERABLES Final R esult [address] [address], [address] [address] * (ABNORMAL) Hemoglobin and Hematocrit (11/05/2024 7:00 PM EDT) Only the most recent of5 resultswithin the time period is included. Hematocrit 24.0(L) 39.0 - 54.0 % 11/05/2024 8:39 PM T [facility] Hemoglobin 7.7(L) 13.0 - 17.7 g/dL 11/05/2024 8:39 PM EDT [facility] Blood Blood specimen / Unknown 11/05/2024 7:00 PM EDT 11/05/2024 8:12 PM EDT us Mahesh Interiano MD LAB BLOOD ORDERABLES Final R esult [facility] [address] [place] [address], [address] [address] * (ABNORMAL) Basic Metabolic Panel (11/05/2024 5:00 AM EDT) Only the most recent of7 resultswithin the time period is included. Glucose 156(H) 65 - 99 mg/dL 11/05/2024 5:52 AM [facility] Comment:Fasting: <100 mg/dL, Non-Fasting: <200 mg/dL (ADA 2004) Blood Urea Nitrogen (BUN) 6(L) 8 - 21 mg/dL 11/05/2024 5:52 AM [facility] Creatinine 0.8 0.5 - 1.3 mg/dL 11/05/2024 5:52 AM [facility] eGFR >90 >59 11/05/2024 5:52 AM [facility] Comment:CKD-EPI (2020) in mL /min/1.73 sq meters. Sodium 141 136 - 145 mmol/L 11/05/2024 5:52 AM [facility] Potassium 3.5 3.4 - 5.3 mmol/L 11/05/2024 5:52 AM [facility] Chloride 108(H) 98 - 107 mmol/L 11/05/2024 5:52 AM [facility] CO2 22 22 - 33 mmol/L 11/05/2024 5:52 AM [facility] Anion Gap 11 7 - 17 11/05/2024 5:52 AM [facility] Calcium 8.4(L) 8.7 - 10.5 mg/dL 11/05/2024 5:52 AM [facility] BUN/Creatinine Ratio 8(L) 10.0 - 25.0 Ratio 11/05/2024 5:52 AM [facility] Blood Blood specimen / Unknown 11/05/2024 5:00 AM EDT 11/05/2024 5:29 AM EDT Mahesh Interiano MD LAB BLOOD ORDERABLES Final R esult Performing Organization Address City/[facility]/ZIP [place] [address], [place] [address] * (ABNORMAL) Hepatic Function Panel (Routine) (11/03/2024 5:00 PM EDT) Only the most recent of4 resultswithin the time period is included. Pathologist [facility] Alkaline Phosphatase 104 45 - 128 U/L 11/03/2024 7:36 PM EDT [facility] Aspartate Aminotrans (AST) 49 10 - 55 U/L 11/03/2024 7:36 PM EDT [facility] Alanine Aminotrans (ALT) 17 10 - 55 U/L 11/03/2024 7:36 PM EDT [facility] Bilirubin, Total 3.1(H) 0.2 - 1.0 mg/dL 11/03/2024 7:36 PM EDT [facility] Protein, Total 5.9(L) 6.3 - 8.3 g/dL 11/03/2024 7:36 PM EDT [facility] Albumin 3.4(L) 3.5 - 5.0 g/dL 11/03/2024 7:36 PM EDT [facility] Bilirubin, Direct 1.2(H) 0 - 0.2 mg/dL 11/03/2024 7:36 PM EDT [facility] Globulin 2.5 1.5 - 3.9 g/dL 11/03/2024 7:36 PM T [facility] Albumin/Globulin Ratio 1.4 1.0 - 3.0 Ratio 11/03/2024 7:36 PM EDT [facility] Blood Blood specimen / Unknown 11/03/2024 5:00 PM EDT 11/03/2024 6:58 PM EDT Mahesh Interiano MD LAB BLOOD ORDERABLES Final R esult Performing Organization Address City/[facility]/ZIP [place] [address], [address] [address] * (ABNORMAL) Reticulocyte with Index (11/03/2024 9:40 AM EDT) Reticulocyte Count 3.8(H) 0.7 - 2.0 % 11/03/2024 6:46 PM EDT [facility] Reticulocyte, Absolute 106.1(H) 30.0 - 100.0 Thou/uL 11/03/2024 6:46 PM EDT [facility] Reticulocyte Index 2.0 1.0 - 2.0 % 11/03/2024 6:46 PM EDT [facility] Retic Hemoglobin Content 35.50(H) 28 - 35 pg 11/03/2024 6:46 PM EDT [facility] Immature Reticulocyte Fraction 19.5(H) 2.3 - 15.9 % 11/03/2024 6:46 PM EDT [facility] Blood specimen / Unknown 11/03/2024 9:40 AM EDT 11/03/2024 10:44 AM EDT Mahesh Interiano MD LAB BLOOD ORDERABLES [place] [address], [place] [address] * Red Blood Cell Morphology (11/03/2024 9:40 AM EDT) Normochromic Present 11/03/2024 11:43 PM EDT [facility] Normocytic Present 11/03/2024 11:43 PM EDT [facility] Blood specimen / Unknown 11/03/2024 9:40 AM EDT 11/03/2024 10:44 AM EDT Mahesh Interiano MD LAB BLOOD ORDERABLES [place] [address], [address] [address] * Prepare RBC's:Prepare in: Units; Number of [...] - 260 U/L 11/03/2024 10:24 AM EDT [facility] 11/03/2024 4:38 AM EDT 11/03/2024 4:49 AM EDT us Mahesh Interiano MD LAB BLOOD ORDERABLES Final R esult Performing Organization Address [facility] [place] [address], [place] [address] * (ABNORMAL) HAPTOGLOBIN (11/03/2024 4:38 AM EDT) Haptoglobin <10(L) 30 - 200 mg/dL 11/03/2024 10:24 AM EDT [facility] 11/03/2024 4:38 AM EDT 11/03/2024 4:49 AM EDT us Mahesh Interiano MD LAB BLOOD ORDERABLES Final R esult Performing Organization Address City/[facility]/ZIP [place] [address], [place] [address] * Pathology (11/03/2024 12:00 AM EDT) Report Please See Procedures/Addenda Results Below [facility] [id number] CLIA ID [id number] [address] [place] [address] [phone] Surgical Pathology Report PATIENT NAME: MARTIN ALVES REC NUMBER: [id number] (AGE): 1965 (Age: 58) SPECIMEN NUMBER: [id number] DATE OBTAINED: 11/03/2024 DIAGNOSIS ENDOSCOPIC BIOPSIES: A. STOMACH: GASTRIC ANTRAL GLAND MUCOSA WITH REACTIVE GASTROPATHY. H. PYLORI IMMUNOHISTOCHEMICAL STAIN WILL BE REPORTED IN AN ADDENDUM. ne/11/07/2024 Electronically Signed Out TETO BRADFORD MD COMMENT [id number] X 1 Clinical Information and History: Procedure: [...] NEGATIVE FOR H. PYLORI (NEGATIVE IMMUNOHISTOCHEMICAL STAIN). [id number] The tests used in the work-up of this specimen may include Analyte-Specific Reagents (ASRs). The Immunopathology/[facility] at [facility] has established the performance characteristics of these reagents. They have not been cleared or approved by the [place] Food and Drug Administration (FDA); however, the FDA has determined that such clearance or approval is not necessary for their use. All positive controls show appropriate immunoreactivity. Addendum Comment {Not Entered} HOSPITAL LAB 11/03/2024 11/04/2024 5:3 9 AM EDT Comment:STOMACH, EROSION (GA STROPATHY) Lisa Duarte DO PATHOLOGY/CYTOLOGY ORDER GINA Final Result HOSPITAL LAB See Below * Type and Screen (11/02/2024 11:57 AM EDT) ABO/Rh A POSITIVE 11/02/2024 1:49 PM EDT [facility] Antibody Screen NEGATIVE 11/02/2024 1:49 PM EDT [facility] Specimen Expiration 11/05/2024 11/02/2024 1:49 PM [facility] Blood Bank Comment Second Sample needed for Blood Transfusion 11/02/2024 1:49 PM [facility] Unit Number [id number] 11/03/2024 4:54 AM [facility] Blood Component Type LEUKOREDUCED RED CELLS 11/03/2024 4:54 AM [facility] Unit Division 00 11/03/2024 4:54 AM [facility] Unit Status ISSUED,FINAL 11/04/2024 12:24 AM [facility] Transfusion Status OK TO TRANSFUSE 11/03/2024 4:54 AM [facility] Crossmatch Result Electronically Compatible 11/03/2024 4:54 AM [facility] Unit Number [id number] 11/03/2024 5:19 AM [facility] Blood Component Type LEUKOREDUCED RED CELLS 11/03/2024 5:19 AM [facility] Unit Division 00 11/03/2024 5:19 AM [facility] Unit Status ISSUED,FINAL 11/04/2024 12:24 AM [facility] Transfusion Status OK TO TRANSFUSE 11/03/2024 5:19 AM [facility] Crossmatch Result Electronically Compatible 11/03/2024 5:19 AM [facility] Blood Blood specimen / Unknown 11/02/2024 11:57 AM EDT 11/02/2024 12:44 PM EDT Comment:Blood us Lisa Duarte DO BLOOD BANK TEST ORDERABL ES Final Result Performing Organization Address City/[facility]/ZIP Co de Phone Number H[place]PITAL [place] [address] * (ABNORMAL) Protime-INR (AM) (11/02/2024 11:25 AM EDT) Only the most recent of2 resultswithin the time period is included. Anticoagulant NO ANTI COAGULANT MEDS 11/02/2024 7:36 AM EDT [facility] Prothrombin Time (PT) 16.9(H) 10.0 - 13.5 seconds 11/02/2024 12:36 PM EDT [facility] INR 1.5 11/02/2024 12:36 PM EDT [facility] Comment:INR Therapeutic Rang es: Standard dose anticoagulant 2.0 to 3.0, High dose anticoagulant 2.5-3.5. Blood Blood specimen / Unknown 11/02/2024 11:25 AM EDT 11/02/2024 12:06 PM EDT Lisa Duarte DO LAB BLOOD ORDERABLES Fin al Result Performing Organization Address [facility] [place] [address], [address] [address] * ABO Confirmation (11/02/2024 6:00 AM EDT) ABO/Rh A POSITIVE 11/03/2024 4:53 AM EDT [facility] Blood specimen / Unknown 11/02/2024 6:00 AM EDT 11/03/2024 4:26 AM EDT Ann Marie Bloom MD BLOOD BANK TEST ORDERABLES Final Result Performing Organization Address [facility] [place] [address], [place] [address] * Potassium (11/01/2024 6:00 PM EDT) Only the most recent of2 resultswithin the time period is included. Potassium 3.6 3.4 - 5.3 mmol/L 11/01/2024 7:05 PM EDT [facility] Blood Blood specimen / Unknown 11/01/2024 6:00 PM EDT 11/01/2024 6:37 PM EDT us Mahesh Interiano MD LAB BLOOD ORDERABLES Final R esult [address] [address], [address] [address] * XR Chest 1 view-Portable (STAT) (11/01/2024 [...] vessels are patent. us Derrick Cuello MD [facility] US ORDERABLES Final Result * MRI Brain [...] microangiopathic white matter changes. Derrick Cuello MD [facility] MRI ORDERABLES Final Result * Alpha-Fetoprotein (AFP), Tumor Marker (10/30/2024 1:34 PM EDT) Alpha-Fetoprotein (AFP), Tumor Marker 1.6 <6.1 ng/mL 11/03/2024 4:07 PM EDT [facility] Comment: (NOTE) This test was performed using the Yahaira Teri chemiluminescent method. Values obtained from different assay methods cannot be used interchangeably. AFP levels, regardless of value, should not be interpreted as absolute evidence of the presence or absence of disease. Test performed by [employer] [address] [place] [address] [employer] Counselor: Faby Smith MD,PHD,JOSH Test Reported by [facility] [employer] [place], [address] [place] [address] Jigar Woods M.D., Ph.D., Director of Laboratories , CLIA [id number] Blood Blood specimen / Unknown 10/30/2024 1:34 PM EDT 10/30/2024 1:48 PM EDT Derrick Cuello MD LAB BLOOD ORDERABLES Final Resu lt Performing Organization Address [facility] de Phone Number [employer] , [employer] * (ABNORMAL) Zinc Level (10/30/2024 1:34 PM EDT) [facility] Zinc 37(L) 60 - 130 mcg/dL 11/02/2024 1:47 AM EDT [facility] Comment: (NOTE) This test was developed and its analytical performance characteristics have been determined by [employer] [place], [place]. It has not been cleared or approved by the U.S. Food and Drug Administration. This assay has been validated pursuant to the CLIA regulations and is used for clinical purposes. Blood Blood specimen / Unknown 10/30/2024 1:34 PM EDT 10/30/2024 1:48 PM EDT Derrick Cuello MD LAB BLOOD ORDERABLES Final Resu lt Performing Organization Address [facility] Co de Phone Number [employer] [address] [place] [address], [place] , [place] [facility], [place] [address] [facility] [address] [address] [place], [place] * Blood Culture (10/29/2024 6:22 PM EDT) Only the most recent of2 resultswithin the time period is included. Culture Sterile after 5 days 11/03/2024 8:38 AM EDT [facility] Blood Blood specimen / Unknown 10/29/2024 6:22 PM EDT 10/29/2024 8:41 PM EDT Comment:Blood us Derrick Cuello MD LAB BLOOD ORDERABLES Final Resu lt [facility] [address] [place] [address], [place] * US Guided Bedside Abdominal Paracentesis (10/29/2024 1:53 PM EDT) Anatomical Region Laterality Modality Ultrasound Narrative 10/29/2024 1:57 PM EDT PROCEDURE: ULTRASOUND-GUIDED DIAGNOSTIC PARACENTESIS INDICATION: New onset Ascites SPECIMEN: Specimen collected as requested. Sample left with bedside RN. ACCESS: 5 [place] One-Step needle/catheter system REQUESTING PRACTITIONER: Derrick Cuello [...] adjacent organs or vascular structures. A 5 [place] One-Step needle/catheter system was utilized for access. 1 liters of yellow fluid was aspirated and sent for analysis. The catheter was removed and sterile dressing applied. The patient tolerated the procedure well without evidence of complications. CONCLUSION: Ultrasound-guided diagnostic paracentesis yielding 1 liters of yellow fluid as described. This procedure was performed by LIVIER Manjarrez. us Derrick Cuello MD [facility] US ORDERABLES Final Result * Mycobacteria Culture (includes Acid Fast Smear) (10/29/2024 1:45 PM EDT) Culture No acid fast bacilli isolated. 12/11/2024 3:17 PM EDT [facility] Abdominal Cavity 10/29/2024 1:45 PM EDT 10/29/2024 2:45 PM EDT Comment:Fluid, Ascitic Ann Marie Bloom MD MICROBIOLOGY - GENERAL ORDERABLE S Final Result [facility] [address] [place] [address], * Fungal Culture (non-blood) (10/29/2024 1:45 PM EDT) Culture No fungus isolated 11/13/2024 7:52 AM EDT [facility] Abdominal Cavity 10/29/2024 1:45 PM EDT 10/29/2024 2:46 PM EDT Comment:Fluid, Ascitic us Ann Marie Bloom MD MICROBIOLOGY - GENERAL ORDERABLE S Final Result Performing Organization Address [facility]/ZIP Co de Phone Number [facility] [address] [place] [address], * Body Fluid Culture, Ascites (includes Aerobic, Anaerobic and Gram Stain) (10/29/2024 1:27 PM EDT) Special Requests Limited quantity of fluid received, results may be impacted. 10/30/2024 9:40 AM EDT [facility] Gram stain suggestive of Few neutrophils Mononuclear cells No organisms seen 10/29/2024 3:04 PM EDT [facility] Culture No aerobes and anaerobes isolated after 7 days 11/05/2024 3:12 PM EDT [facility] Fluid, Ascitic (Abdominal Cavity) 10/29/2024 1:27 PM EDT 10/29/2024 2:22 PM EDT Comment:Fluid, Ascitic Derrick Cuello MD MICROBIOLOGY - GENERAL ORDERABL ES Final Result Performing Organization Address [facility] Co de Phone Number [facility] [address] [place] [address], [place] [address] * Protein, Body Fluid (10/29/2024 1:26 PM EDT) Source Abdominal Cavity 10/29/2024 1:27 PM EDT [facility] Comment:Fluid, Ascitic Protein, Body Fluid 0.7 g/dL 10/29/2024 2:36 PM EDT [facility] Comment:The reference interv al(s) and other method performance specifications are unavailable for this body fluid. Comparison of this result with the concentration in the blood, serum, or plasma is recommended. Fluid, Ascitic (Abdominal Cavity) 10/29/2024 1:26 PM EDT 10/29/2024 2:10 PM EDT us Derrick Cuello MD BODY FLUIDS AND STOOLS ORDERABL ES Final Result Performing Organization Address City/[facility]/ZIP Co de Phone Number [address] [address], [address] [address] * LDH, Ascites (10/29/2024 1:26 PM EDT) Source Abdominal Cavity 10/29/2024 1:27 PM EDT [facility] Comment:Fluid, Ascitic Lactate Dehydrogenase, Body Fluid 41 U/L 10/29/2024 2:36 PM EDT [facility] Comment:The reference interv al(s) and other method performance specifications are unavailable for this body fluid. Comparison of this result with the concentration in the blood, serum, or plasma is recommended. Fluid, Ascitic (Abdominal Cavity) 10/29/2024 1:26 PM EDT 10/29/2024 2:10 PM EDT us Derrick Cuello MD BODY FLUIDS AND STOOLS ORDERABL ES Final Result Performing Organization Address [facility] de Phone Number [address] [address], [address] [address] * Glucose, Ascites (10/29/2024 1:26 PM EDT) Source Abdominal Cavity 10/29/2024 1:27 PM EDT [facility] Comment:Fluid, Ascitic Glucose, Body Fluid 138 mg/dL 10/29/2024 2:36 PM EDT [facility] Comment:The reference interv al(s) and other method performance specifications are unavailable for this body fluid. Comparison of this result with the concentration in the blood, serum, or plasma is recommended. Fluid, Ascitic (Abdominal Cavity) 10/29/2024 1:26 PM EDT 10/29/2024 2:10 PM EDT us Derrick Cuello MD BODY FLUIDS AND STOOLS ORDERABL ES Final Result Performing Organization Address [facility] Co de Phone Number [address] [address], [address] [address] * Albumin, Body Fluid (10/29/2024 1:26 PM EDT) Source Abdominal Cavity 10/29/2024 1:27 PM EDT [facility] Comment:Fluid, Ascitic Albumin, Body Fluid 0.3 g/dL 10/29/2024 2:36 PM EDT [facility] Comment:The reference interv al(s) and other method performance specifications are unavailable for this body fluid. Comparison of this result with the concentration in the blood, serum, or plasma is recommended. Fluid, Ascitic (Abdominal Cavity) 10/29/2024 1:26 PM EDT 10/29/2024 2:10 PM EDT us Derrick Cuello MD BODY FLUIDS AND STOOLS ORDERABL ES [place] [address], [address] [address] * Cell Count, Reflex Differential, Body Fluid (10/29/2024 1:26 PM EDT) Appearance, Body Fluid Clear 10/29/2024 3:15 PM EDT [facility] Color Yellow 10/29/2024 3:15 PM EDT [facility] Nucleated Cells, Fluid 82 /CUMM 10/29/2024 2:25 PM EDT [facility] RBC, Fluid <2,000 /CUMM 10/29/2024 2:25 PM EDT [facility] Neutrophil, Body Fluid 3 % 10/29/2024 3:15 PM EDT [facility] Lymphoctye, Body Fluid 29 % 10/29/2024 3:15 PM EDT [facility] Monocyte, Body Fluid 9 % 10/29/2024 3:15 PM EDT [facility] Histiocyte, Body Fluid 57 % 10/29/2024 3:15 PM EDT [facility] Mesothelial, Body Fluid 2 % 10/29/2024 3:15 PM EDT [facility] Smear Comment, Body Fluid The reference interval and other method performance specifications are unavailable for this body fluid. Comparison of the result with concentration in the blood, serum, or plasma is recommended 10/29/2024 3:15 PM EDT [facility] Fluid, Ascitic (Abdominal Cavity) 10/29/2024 1:26 PM EDT 10/29/2024 2:10 PM EDT us Derrick Cuello MD BODY FLUIDS AND STOOLS ORDERABL ES Final Result Performing Organization Address [facility] de Phone Number [address] [address], [address] [address] * Cytology Report (10/29/2024 12:56 PM EDT) Report [facility] [id number] CLIA ID [id number] [address] [place] [address] / [phone] Cytopathology Report PATIENT NAME: MARTIN ALVES REC NUMBER: [id number] (AGE): 1965 (Age: 58) SPECIMEN NUMBER: [id number] DATE OBTAINED: 10/29/2024 DIAGNOSIS: A. ASCITIC FLUID WITH CELL BLOCK: NEGATIVE FOR MALIGNANT CELLS. REACTIVE MESOTHELIAL CELLS, HISTIOCYTES, AND INFLAMMATORY CELLS /10/31/2024 Electronically Signed Out MOISÉS DODSON MD Clinical Diagnosis and History: ABDOMINAL ASCITES FLUID Tissue(s) Submitted: A: Ascitic Fluid WITH CELL BLOCK Specimen Description: RECEIVED 1010 MLS CLOUDY YELLOW FLUID [1 THINPREP MADE] PLUS CELL BLOCK 1 SLIDE TOTAL AND CELL BLOCK, TIME IN FORMALIN 08:00 [facility] 10/29/2024 12:5 6 PM EDT 10/30/2024 3:00 AM EDT Comment:Ascitic Fluid WITH C ELL BLOCK us Derrick Cuello MD PATHOLOGY/CYTOLOGY ORDERABLES F inal Result Performing Organization Address [facility] Co de Phone Number HOSPITAL LAB See Below * Urinalysis with Reflex to Microscopic and Culture (10/29/2024 10:43 AM EDT) Only the most recent of2 resultswithin the time period is included. Color Yellow 10/29/2024 11:13 AM EDT Clarity Clear 10/29/2024 11:13 AM EDT Specific Anderson 1.010 1.005 - 1.030 10/29/2024 11:13 AM [...] 6.7(H) <5.7 % 10/29/2024 11:21 AM EDT [facility] Comment: A1c% Interpretation 5.7 - 6.0 Increase risk of diabetes 6.1 - 6.4 Higher risk of diabetes > or = 6.5 Consistent with diabetes Diabetes Care, 33(Supp 1):S1-S61, 2010 Estimated Average Glucose 146 mg/dL 10/29/2024 11:21 AM EDT [facility] Blood Blood specimen / Unknown 10/29/2024 9:32 AM EDT 10/29/2024 9:40 AM EDT us Roman Rangel MD LAB BLOOD ORDERABLES Final Result [address] [address], [address] [address] * Folate Level (10/29/2024 9:32 AM EDT) Folate, Serum 9.9 >7.2 ng/mL 10/29/2024 10:28 AM EDT [facility] Comment:Specimen hemolyzed. Results may be artifactually elevated. Blood Blood specimen / Unknown 10/29/2024 9:32 AM EDT 10/29/2024 9:41 AM EDT Roman Rangel MD LAB BLOOD ORDERABLES Final Result Performing Organization Address [facility]/ZIP [place] [address], [place] [address] * (ABNORMAL) Iron and Total Iron Binding Capacity (10/28/2024 9:38 PM EDT) Pathologist [facility] Iron 67 53 - 167 ug/dL 10/29/2024 2:45 AM EDT [facility] UIBC 79(L) 112 - 346 ug/dL 10/29/2024 2:45 AM EDT [facility] Total Iron Binding Capacity 146 100 - 400 ug/dL 10/29/2024 2:45 AM EDT [facility] Iron Sat 46 20 - 50 % 10/29/2024 2:45 AM EDT [facility] 10/28/2024 9:38 PM EDT 10/28/2024 9:47 PM EDT Ann Marie Bloom MD LAB BLOOD ORDERABLES Final Resul t Performing Organization Address City/[facility]/ZIP [place] [address], [address] [address] * FERRITIN (10/28/2024 9:38 PM EDT) Ferritin 213 30 - 400 ug/L 10/29/2024 2:45 AM EDT [facility] 10/28/2024 9:38 PM EDT 10/28/2024 9:47 PM EDT Ann Marie Bloom MD LAB BLOOD ORDERABLES Final Resul t [address] [address], [address] [address] * CK (10/28/2024 9:38 PM EDT) Creatine Kinase (CK) 64 24 - 204 U/L 10/28/2024 10:14 PM EDT [facility] Blood Blood specimen / Unknown 10/28/2024 9:38 PM EDT 10/28/2024 9:47 PM EDT Ann Marie Bloom MD LAB BLOOD ORDERABLES Final Resul t Performing Organization Address City/[facility]/ZIP Co de Phone Number [address] [address], [address] [address] * Ammonia (10/28/2024 9:38 PM EDT) Ammonia, Plasma 57 16 - 60 umol/L 10/28/2024 10:30 PM EDT [facility] Blood Blood specimen / Unknown 10/28/2024 9:38 PM EDT 10/28/2024 9:43 PM EDT Ann Marie Bloom MD LAB BLOOD ORDERABLES Final Resul t Performing Organization Address City/[facility]/ZIP Co de Phone Number [address] [address], [address] [address] * CT Head w/o contrast (10/28/2024 7:47 PM EDT) Anatomical Region Laterality Modality Head Computed Tomogra phy 10/28/2024 7:23 PM EDT Impressions 10/28/2024 8:07 PM EDT * No acute intracranial hemorrhage or abnormal carey-white matter differentiation to suggest edematous territorial infarction. 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 Interpreted by: Donato Wang MD Campground Caretaker I personally reviewed the images and the [...] paranasal sinuses are clear. Procedure Note Ric Sutton, DO - 10/28/2024 EXAMINATION: CT HEAD WITHOUT [...] volume atrophy. Interpreted by: Donato Wang MD Campground Caretaker I personally reviewed the images and the resident's preliminary report and AGREE with the report as it is now presented (RADPAL1). us Anna MAIER IMG CT ORDERABLES Final Result * (ABNORMAL) High Sensitivity Troponin T (10/28/2024 6:37 PM EDT) Only the most recent of2 resultswithin the time period is included. High Sensitivity Troponin T 37(H) <23 ng/L 10/28/2024 7:46 PM EDT [facility] Delta (Change) 1 <3 10/28/2024 7:46 PM EDT [facility] Comment:Increased 10/28/2024 6:37 PM EDT 10/28/2024 7:08 PM EDT us Anna MAIER LAB BLOOD ORDERABLES Final Resu lt [address] [address], [address] [address] * XR Chest 2 views (10/28/2024 6:07 PM EDT) Anatomical Region Laterality Modality Chest Computed Radiogr aphy 10/28/2024 5:21 PM EDT Impressions 10/28/2024 7:44 PM EDT Low lung volumes with bronchovascular crowding. Right medial lung base streaky opacities favor atelectasis. Interpreted by: Rodger De La Vega DO Campground C[employer]aker I personally reviewed the images and the [...] Interpreted by: Rodger De La Vega DO Campground Caretaker I personally reviewed the images and the resident's preliminary report and AGREE with the report as it is now presented (RADPAL1). us Anna MAIER IM DIAGNOSTIC IMAGING ORDERABL ES Final Result * (ABNORMAL) Complete Blood Count, with Differential (10/28/2024 5:46 PM EDT) White Blood Cell Count 4.7 4.0 - 11.0 Thou/uL 10/28/2024 5:57 PM EDT [facility] Platelet Count 136(L) 150 - 450 Thou/uL 10/28/2024 5:57 PM EDT [facility] Hemoglobin 7.5(L) 13.0 - 17.7 g/dL 10/28/2024 5:57 PM T [facility] Hematocrit 22.7(L) 39.0 - 54.0 % 10/28/2024 5:57 PM EDT [facility] Red Blood Cell Count 2.57(L) 4.50 - 6.20 Mil/uL 10/28/2024 5:57 [facility] MCV 88 80 - 100 fL 10/28/2024 5:57 [facility] MCH 29.2 27.0 - 31.0 pg 10/28/2024 5:57 PM [facility] MCHC 33.0 30.0 - 36.0 g/dL 10/28/2024 5:57 PM [facility] RDW 18.6(H) 11.5 - 14.5 % 10/28/2024 5:57 PM [facility] MPV 9.4 7.5 - 12.5 fL 10/28/2024 5:57 PM [facility] Neutrophils Auto 64.9 % 10/29/19 5:57 PM [facility] Immature Granulocytes 0.2 % 10/28/2024 5:57 PM [facility] Lymphocytes Auto 23.6 % 10/29/19 5:57 PM [facility] Monocytes Auto 7.0 % 10/28/2024 5:57 PM [facility] Eosinophils Auto 3.0 % 10/29/19 5:57 PM [facility] Basophils Auto 1.3 % 10/28/2024 5:57 PM [facility] Abs Neutrophils Auto 3.08 2.00 - 7.50 Thou/uL 10/28/2024 5:57 PM [facility] Abs Immature Granulocytes 0.01 0.00 - 0.10 Thou/uL 10/28/2024 5:57 PM [facility] Abs Lymphocytes Auto 1.12(L) 1.50 - 4.50 Thou/uL 10/28/2024 5:57 [facility] Abs Monocytes Auto 0.33 0.20 - 1.50 Thou/uL 10/28/2024 5:57 PM [facility] Abs Eosinophils Auto 0.14 0.00 - 0.70 Thou/uL 10/28/2024 5:57 PM [facility] Abs Basophils Auto 0.06 0.00 - 0.20 Thou/uL 10/28/2024 5:57 PM [facility] Blood Blood specimen / Unknown 10/28/2024 5:46 PM EDT 10/28/2024 5:49 PM EDT Anna MAIER LAB BLOOD ORDERABLES Final Resu lt Performing Organization Address [facility] Co de Phone Number [facility] [address] [place] [address], [facility] [address] [place] [address] * ECG 12 lead (10/28/2024 4:54 PM EDT) Ventricular rate 90 BPM EKG [facility] Atrial rate 90 BPM EKG [facility] P-R interval 134 ms EKG [facility] QRS duration 96 ms EKG [facility] Q-T interval 400 ms EKG [facility] QTC calculation (Bazett) 490 ms EKG [facility] P axis 15 degrees EKG [facility] R axis 57 degrees EKG [facility] T axis 48 degrees [facility] 10/28/2024 4:54 PM EDT Narrative EKG [facility] - 10/28/2024 5:19 PM EDT Normal sinus rhythm with sinus arrhythmia Nonspecific ST and T wave abnormality Prolonged QT Abnormal ECG Confirmed by MD Luke John ([id number]) on 10/28/2024 5:19:25 PM Procedure Note Mateusz Luke MD - 10/28/2024 Normal sinus rhythm with sinus arrhythmia Nonspecific ST and T wave abnormality Prolonged QT Abnormal ECG Confirmed by MD Luke John ([id number]) on 10/28/2024 5:19:25 PM us Anna MAIER ECG ORDERABLES Final Result Performing Organization Address City/[facility]/ZIP Co de Phone Number [facility] from Last 3 Months Insurance UMR UMR [...] 10:01 PM 10/09/2024 9:29 PM Care Teams Spinner Cap Frame Relationship Specialty Start Date End Date Sammie Estrella PA-C [address] [place] [address] [place] [address] PCP - General Internal Medicine 11/20/24
[2025-01-25 09:15] LABS: Ammonia 29 umol/L (13-55)
== END 2025-01-25 08:06 | disposition home or self-care (01) ==
LOC: HO.US 08:05
PROVIDERS: Internal Medicine Medical Oncology; Visit Provider Internal Medicine
DX: K74.60 Unspecified cirrhosis of liver (principal); D69.6 Thrombocytopenia, unspecified
CPT/HCPCS: 36415; 76700; 76981; 82140

== ENCOUNTER → 2025-01-25 08:06 | Outpatient (BNV) | payer OTHER, SELFPAY | PROVIDERS: Visit Provider Radiology Diagnostic Radiology | DX: K74.60 Unspecified cirrhosis of liver (principal); K76.0 Fatty (change of) liver, not elsewhere classified; R16.1 Splenomegaly, not elsewhere classified | CPT/HCPCS: 76700 ==

== ENCOUNTER 2025-02-07 13:29 | Outpatient (AMB) | payer OTHER, SELFPAY ==
--- NOTE | 2025-02-07 13:31 | MHC.OFFVIS ---
Vital Signs 02/07/25 13:35 Height 6 ft Weight 310 lb 13.628 oz BMI 42.2 BP 139/66 Blood Pressure Location Lt brachial Position Sitting Pulse 86 Intake Visit Reasons: Cirrhosis, Jaundice, RIVERA Intake Note: Martin presents in the office as a follow up for cirrhosis, Jaundice, RIVERA. CC: States this is just a check up and results for his labs. He had a back surgery over the summer. Laundry Pricing Clerk Required: No Allergies No Known Allergies Allergy (Verified 02/07/25 13:37) HPI Comments Details: 58 y.o M with PMH of known liver disease, non-hodgkins lymphoma, recent prolonged hospitalization for epidural abscess which was managed at [facility] in [place], who is here to establish care with GI for cirrhosis. Pt himself reports no abd pain, N,V. No change in abd girth. First found out about fatty liver almost 15 years ago. This year since June 2024 he has been trying to maage epidural abscess and lumbar osteo. Has had at least 4 hospitalizations - [facility], [facility], [facility] and [facility]. While he was in hospitalized in [facility] he did have 1 L of paracentesis done just one time. He also had egd/colo done last month in [facility] for anemia - unable to recall findings. He remains on IV Abx through PICC line. No hx of etOH use. No hx of recreational drug use. Does report significant obesity before - used to weigh around 400 lbs. EGD 11/03/2024 (Dr Lisa Duarte): Grade 2 varices. X2 EVBL. Portal hypertension gastropathy. H pylori negative. Colonoscopy 11/06/2024 (Dr Lisa Duarte): Inadequate bowel prep. Sigmoid diverticulosis. Repeat recommended within a year. 02/07/25: Pt here for follow up. Interim blood work and US reviewed. Discussed that elasto read is a bit puzzling as appearance is consistent with cirrhosis but stiffness is not bad. In any case, will cont surveillance for now as has known CSPH i.e consistent with cirrhosis. No ascites noted. HB core Ab +, but antigen negative. Has hx of non-hodgkins lymphoma, in remission, follows with Dr Nolan. Will need another colo given poor prep in past. Of note, pt noted to be on ASA, BB and furosemide which were started in [facility] by his report. However, he does not recall any hx of chest pain, or CHF. Will get an echo before booking this. Next EGD will be due in Oct 2025, continues on coreg. [facility] Medical History Stomach ulcer Stage Lola non-Hodgkin lymphoma Neuropathy Erectile dysfunction Diabetes mellitus Thrombocytopenia Low vitamin D level Hypercholesterolemia Gait instability Cirrhosis Jaundice RIVERA (nonalcoholic steatohepatitis) Surgical History History of back surgery Hx of colonoscopy History of esophagogastroduodenoscopy (EGD) History of hernia repair History of shoulder surgery Social History Household Members: Spouse Household Members Other:: 2 Housing: House Are you a primary manager care to a significant other at home: No Do you presently have visiting nurse or other home services: Yes Alcohol intake: never Patient Tobacco Use Status: Never used Tobacco Tobacco use type: Cigarette e-Cigarette/Vaping Use: Never Used Second Hand Smoke Exposure: No Substance Use Type: Marijuana Advance Directives Date on File: 09/04/24 service: No Current occupational status: employed 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 Current occupational exposures/hazards: No Cognitive needs: No Hearing needs: No Vision needs: No Review of Systems Const All systems reviewed & are unremarkable except as noted in HPI and below Physical Exam Exam Exam: No apparent distress Nonicteric Abdomen soft, nondistended Alert and oriented x3, normal gait pitting edema +3 in b/l LE Vital Signs: Last Vital Signs Pulse 86 02/07/25 13:35 BP 139/66 02/07/25 13:35 BMI result Body Mass Index 42.2 Assessment & Plan Assessment & Plan (1) Cirrhosis: Code(s): K74.60 - Unspecified cirrhosis of liver Category: Medical (2) RIVERA (nonalcoholic steatohepatitis): Code(s): K75.81 - Nonalcoholic steatohepatitis (RIVERA) Category: Medical (3) Stage Lola non-Hodgkin lymphoma: Comment: 2013 followed with [facility] Oncology Dr. Shaikh has not been seen since 2019 Code(s): C85.90 - Non-Hodgkin lymphoma, unspecified, unspecified site Category: Medical (4) Lower extremity edema: Code(s): R60.0 - Localized edema Category: Medical (5) Weakness: Code(s): R53.1 - Weakness Category: Medical (6) Hepatitis B core antibody positive: Code(s): R76.8 - Other specified abnormal immunological findings in serum Category: Medical (7) Colon cancer screening: Code(s): Z12.11 - Encounter for screening for malignant neoplasm of colon Category: Medical Plan 1. 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 Currently doing well. Plan: - No HE or ascites on exam - US for HCC screening due June 2025 - Cont coreg for variceal prevention - Consider EGD in Oct 2025 if BMI remains unchanged - Low MELD and seems to be recompensating, will hold off liver transplant referral for now 2. HBV core Ab pos Occult HBV infection based on serology. Reviewed to contact our office for any planned prolonged immunosuppresion including steroids and chemo/immunotherapy. Pt has hx of non-hodgkins lymphoma but appears to be in remission currently. 3. Peripheral edema Pt noted to be on ASA, BB and diuretics. Also has pedal edema on exam. He does not recall any new cardiac dx from his hospitalization but reports meds were started while he was still in [facility]. Plan: - Check echo 4. CRC screening Had poor prep colo in Oct 2024. Will schedule repeat. This will be booked AFTER echo is done and reviewed. - PEG prep Rxed and instructions given. - Pt will also take additional bisacodyl to avoid repeat poor prep Follow up June 2025 after US done Orders: Orders US abdomen complete 5 Months K74.60 - Unspecified cirrhosis of liver CA echo transthoracic complete Today R53.1 - Weakness, R60.0 - Localized edema US abdomen complete 06/25/25 K74.60 - Unspecified cirrhosis of liver Referrals GI Procedure Notification Z12.11 - Encounter for screening for malignant neoplasm of colon Medications: New peg 3350-electrolytes 236-22.74-6.74 -5.86 gram (Golytely) as per split prep instructions, until fecal effluent is clear 240 mL PO Q10M 4,000 mL 0RF colonoscopy bisacodyl Start 2 days before colonoscopy 10 mg (2 x 5 mg) PO BID 8 tabs 0RF 2 days Patient Instructions: We have ordered an echo to evaluate the heart function If that looks ok we will schedule you for the colonoscopy Ultrasound of the liver will be due in June 2025 Next upper endoscopy will be due in October 2025 Coding Level of Care Code Est Pt Level 5 (13391) Complex EM visit Add On G2211 Diagnoses Cirrhosis K74.60 RIVERA (nonalcoholic steatohepatitis) K75.81 Stage Lola non-Hodgkin lymphoma C85.90 Lower extremity edema R60.0 Weakness R53.1 Hepatitis B core antibody positive R76.8 Colon cancer screening Z12.11
[2025-02-07 13:35] VITALS: BP 139/66; PULSE 86; BMI 42.2
--- OUTSIDE RECORDS SUMMARY | 2025-02-07 16:22 | XMS_ITS | Encounter Summary ---
Author Organization [facility] Address [address] [place] [address] Phone Care Team Providers Care Stenocaptioner Name Role Phone Unavailable Primary Care Provider Unavailabl e Encounter Details Date Type Department Care Team (Late st Contact Info) Description 10/19/2024 Scanned Document ID [facility] [address] [place], [place] [id number] Yolanda Doll MD [address] [place] [address] Social History Tobacco Use Types [...]
--- OUTSIDE RECORDS SUMMARY | 2025-02-07 16:22 | XMS_ITS | Encounter Summary ---
Author Organization [facility] [place] [address] Care Team Providers Care Warehouse Person Name Role Phone Gerardo Nice MD Primary Care Provider [phone] Encounter Details Date Type Department Care Team (Late st Contact Info) Description 08/25/2024 Lab Requisition [facility] - Main Lab [address] [place] [address] Gerardo Nice MD [address] [facility] [address] [place], [address] Other specified sepsis (CMS/HCC V24, CMS/HCC V28) Social History Tobacco Use Types Packs/Day Years Used Date Smoking Tobacco: Former Cigarettes 0 Q uit: 03/29/1984 Smokeless Tobacco: Never Alcohol [...] V28) documented in this encounter Care Teams Warehouse Person Relationship Specialty Start Date End Date Gerardo Nice MD [address] [place] [address] [address] [place], [address] PCP - General Family Medicine 07/29/24 documented as of this encounter
--- OUTSIDE RECORDS SUMMARY | 2025-02-07 16:22 | XMS_ITS | Encounter Summary ---
Author Organization [facility] [place] [address] Care Team Providers Care Form Setter Name Role Phone Gerardo Nice MD Primary Care Provider [phone] Encounter Details Date Type Department Care Team (Late st Contact Info) Description 08/03/[address] [facility] - Main Lab [address] [facility] [place] [address] Gerardo Nice MD [address] [facility] [address] [place], [address] Unspecified infectious disease Social History Tobacco [...] and culture (08/03/2024 3:00 AM EDT) Specific [place] Urine 1.008 1.003 - 1.030 LAB URINALYSIS - AUTOMATED METHOD 08/03/2024 10:10 AM [facility] pH, Urine 6.5 5.0 - 8.0 pH LAB URINALYSIS - AUTOMATED METHOD 08/03/2024 10:10 AM [facility] Leukocytes, Urine Negative Negative LAB URINALYSIS - AUTOMATED METHOD 08/03/2024 10:10 AM [facility] Nitrite, Urine Negative Negative LAB URINALYSIS - AUTOMATED METHOD 08/03/2024 10:10 AM [facility] Protein, Urine Negative <=Trace mg/dL LAB URINALYSIS - AUTOMATED METHOD 08/03/2024 10:10 AM [facility] Glucose, Urine Negative Negative mg/dL LAB URINALYSIS - AUTOMATED METHOD 08/03/2024 10:10 AM [facility] Ketones, Urine Negative Negative mg/dL LAB URINALYSIS - AUTOMATED METHOD 08/03/2024 10:10 AM [facility] Urobilinogen, Urine >=8.0(A) 0.2 - 1.0 mg/dL LAB URINALYSIS - AUTOMATED METHOD 08/03/2024 10:10 AM EDT [facility] Bilirubin, Urine Negative Negative LAB URINALYSIS - AUTOMATED METHOD 08/03/2024 10:10 AM EDT [facility] Blood, Urine Negative Negative LAB URINALYSIS - AUTOMATED METHOD 08/03/2024 10:10 AM EDT [facility] Urine Urine specimen obtained by clean catch procedure / Unknown Non-blood Collection / Unknown 08/03/2024 3:00 AM EDT 08/03/2024 8:26 AM EDT Gerardo Nice MD LAB URINE ORDERABLES Final Resul t [facility] [address] [place] [address], [place] [phone] * Carey urine culture tube (08/03/2024 3:00 AM EDT) Extra Tube Hold for add-ons. 08/03/2024 10:02 AM EDT [facility] Comment:Auto resulted. Urine Urine specimen obtained by clean catch procedure / Unknown Non-blood Collection / Unknown 08/03/2024 3:00 AM EDT 08/03/2024 8:26 AM EDT Gerardo Nice MD LAB URINE ORDERABLES Final Resul t Performing Organization Address City/[facility]/ZIP Co de Phone Number [facility] [address] [place] [address], [place] [phone] documented in this encounter Visit Diagnoses Diagnosis Unspecified infectious disease documented in this encounter Care Teams Form Setter Relationship Specialty Start Date End Date Gerardo Nice MD [address] [place] [address], [phone] PCP - General Family Medicine 07/29/24 documented as of this encounter
--- OUTSIDE RECORDS SUMMARY | 2025-02-07 16:22 | XMS_ITS | Encounter Summary ---
Author Organization [facility] Address [address] [place] [address] Phone Care Team Providers Care Purchasing Internship Name Role Phone Unavailable Primary Care Provider Unavailabl e Encounter Details Date Type Department Care Team (Late st Contact Info) Description 10/03/2024 Scanned Document ID [facility] [address] [place], [place] [id number] Yolanda Doll MD [address] [place] [address] Social History Tobacco Use Types [...]
--- OUTSIDE RECORDS SUMMARY | 2025-02-07 16:22 | XMS_ITS | Encounter Summary ---
Author Organization [facility] Address [address] [place] [address] Phone Care Team Providers Care Rewrite Editor Name Role Phone Unavailable Primary Care Provider Unavailabl e Encounter Details Date Type Department Care Team (Late st Contact Info) Description 11/15/2024 Scanned Document [facility] [address] [place], [place] [id number] Yolanda Doll MD [address] [place] [address] Social History Tobacco Use Types [...]
--- OUTSIDE RECORDS SUMMARY | 2025-02-07 16:22 | XMS_ITS | Encounter Summary ---
Author Organization [facility] [place] [address] Care Team Providers Care Concrete Tile Machine Operator Name Role Phone Gerardo Nice MD Primary Care Provider [phone] Encounter Details Date Type Department Care Team (Late st Contact Info) Description 08/05/2024 Lab Requisition [facility] - Main Lab [address] [facility] [place] [address] Gerardo Nice MD [address] [facility] [address] [place], [address] Other specified sepsis (CMS/HCC V24, CMS/HCC [...] 08/07/2024 6:14 AM EDT Other specified sepsis ([facility] V24, [facility] V28) CBC AND DIFFERENTIAL Routine 08/07/2024 6:14 AM EDT Other specified sepsis ([facility] V24, [facility] V28) COMPREHENSIVE METABOLIC PANEL Routine 08/07/2024 6:14 AM EDT Other specified sepsis ([facility] V24, [facility] V28) documented in this encounter Results * (ABNORMAL) CBC auto differential (08/07/2024 6:14 AM EDT) WBC 6.6 4.8 - 10.8 K/mcL LAB HEMETOLOGY METHOD 08/07/2024 10:50 AM [facility] RBC 3.40(L) 4.50 - 5.50 M/mcL LAB HEMETOLOGY METHOD 08/07/2024 10:50 AM [facility] Hemoglobin 10.6(L) 13.5 - 17.5 g/dL LAB HEMETOLOGY METHOD 08/07/2024 10:50 AM [facility] Hematocrit 33.1(L) 42.0 - 54.0 % LAB HEMETOLOGY METHOD 08/07/2024 10:50 AM [facility] MCV 96.5 79.0 - 98.0 FL LAB HEMETOLOGY METHOD 08/07/2024 10:50 AM [facility] MCH 30.9 27.0 - 32.0 pcg LAB HEMETOLOGY METHOD 08/07/2024 10:50 AM [facility] MCHC 32.0 32.0 - 37.0 g/dL LAB HEMETOLOGY METHOD 08/07/2024 10:50 AM [facility] RDW 15.4(H) 11.0 - 15.0 % LAB HEMETOLOGY METHOD 08/07/2024 10:50 AM [facility] Platelets 202 130 - 400 K/mcL LAB HEMETOLOGY METHOD 08/07/2024 10:50 AM [facility] MPV 10.6 7.0 - 11.0 FL LAB HEMETOLOGY METHOD 08/07/2024 10:50 AM [facility] NRBC 0.0 <1.0 % LAB HEMETOLOGY METHOD 08/07/2024 10:50 AM [facility] NRBC Absolute 0.00 <0.10 K/mcL LAB HEMETOLOGY METHOD 08/07/2024 10:50 AM [facility] Neutrophils Relative 69.8 % LAB HEMETOLOGY METHOD 08/07/2024 10:50 AM [facility] Lymphocytes Relative 17.1 % LAB HEMETOLOGY METHOD 08/07/2024 10:50 AM [facility] Monocytes Relative 10.2 % LAB HEMETOLOGY METHOD 08/07/2024 10:50 AM [facility] Eosinophils Relative 1.8 % LAB HEMETOLOGY METHOD 08/07/2024 10:50 AM [facility] Basophils Relative 0.5 % LAB HEMETOLOGY METHOD 08/07/2024 10:50 AM [facility] Immature Granulocytes Relative 0.6 % LAB HEMETOLOGY METHOD 08/07/2024 10:50 AM [facility] Neutrophils Absolute 4.57 1.50 - 7.00 K/mcL LAB HEMETOLOGY METHOD 08/07/2024 10:50 AM [facility] Lymphocytes Absolute 1.12 1.00 - 5.00 K/mcL LAB HEMETOLOGY METHOD 08/07/2024 10:50 AM EDT [facility] Monocytes Absolute 0.67 0.20 - 1.00 K/mcL LAB HEMETOLOGY METHOD 08/07/2024 10:50 AM EDT [facility] Eosinophils Absolute 0.12 0.00 - 0.50 K/mcL LAB HEMETOLOGY METHOD 08/07/2024 10:50 AM EDT [facility] Basophils Absolute 0.03 0.00 - 0.20 K/[facility] LAB HEMETOLOGY METHOD 08/07/2024 10:50 AM EDT [facility] Immature Granulocytes Absolute 0.04(H) 0.00 - 0.03 K/[facility] LAB HEMETOLOGY METHOD 08/07/2024 10:50 AM EDT [facility] Blood Venous blood specimen / Unknown Venipuncture / Unknown 08/07/2024 6:14 AM EDT 08/07/2024 10:19 AM EDT us Gerardo Nice MD LAB BLOOD ORDERABLES Final Resul t [facility] [address] [place] [address], * (ABNORMAL) Comprehensive metabolic panel (08/07/2024 6:14 AM EDT) Sodium 132(L) 133 - 145 mmol/L LAB CHEMISTRY METHOD 08/07/2024 11:02 AM [facility] Potassium 4.8 3.5 - 5.5 mmol/L LAB CHEMISTRY METHOD 08/07/2024 11:02 AM [facility] Chloride 97 96 - 110 mmol/L LAB CHEMISTRY METHOD 08/07/2024 11:02 AM [facility] CO2 25 21 - 32 mmol/L LAB CHEMISTRY METHOD 08/07/2024 11:02 AM [facility] Anion Gap 10 3 - 11 LAB CHEMISTRY METHOD 08/07/2024 11:02 AM [facility] Glucose 134(H) 70 - 100 mg/dL LAB CHEMISTRY METHOD 08/07/2024 11:02 AM [facility] BUN 12 5 - 25 mg/dL LAB CHEMISTRY METHOD 08/07/2024 11:02 AM [facility] Creatinine 0.60(L) 0.70 - 1.30 mg/dL LAB CHEMISTRY METHOD 08/07/2024 11:02 AM [facility] eGFR 111 >=60 mL/min/1. 73m2 LAB CHEMISTRY METHOD 08/07/2024 11:02 AM [facility] Comment:Calculation based on the Chronic Kidney Disease Epidemiology Collaboration (CKD-EPI) equation refit without adjustment for race. BUN/Creatinine Ratio 20.0 LAB CHEMISTRY METHOD 08/07/2024 11:02 AM [facility] Calcium 8.4(L) 8.5 - 10.5 mg/dL LAB CHEMISTRY METHOD 08/07/2024 11:02 AM [facility] AST (SGOT) 49(H) 10 - 42 unit/L LAB CHEMISTRY METHOD 08/07/2024 11:02 AM [facility] ALT (SGPT) 26 10 - 60 unit/L LAB CHEMISTRY METHOD 08/07/2024 11:02 AM [facility] Alkaline Phosphatase 99 42 - 121 unit/L LAB CHEMISTRY METHOD 08/07/2024 11:02 AM [facility] Total Protein 6.8 6.0 - 8.0 g/dL LAB CHEMISTRY METHOD 08/07/2024 11:02 AM [facility] Albumin 1.8(L) 3.2 - 5.0 g/dL LAB CHEMISTRY METHOD 08/07/2024 11:02 AM [facility] Total Bilirubin 3.1(H) 0.0 - 1.4 mg/dL LAB CHEMISTRY METHOD 08/07/2024 11:02 AM EDT [facility] Blood Venous blood specimen / Unknown Venipuncture / Unknown 08/07/2024 6:14 AM EDT 08/07/2024 10:19 AM EDT us Gerardo Nice MD LAB BLOOD ORDERABLES Final Resul t [facility] [address] [place] [address], documented in this encounter Visit Diagnoses Diagnosis Other specified sepsis (CMS/HCC V24, CMS/HCC V28) documented in this encounter Care Teams Concrete Tile Machine Operator Relationship Specialty Start Date End Date Gerardo Nice MD [address] [place] [address], [phone] PCP - General Family Medicine 07/29/24 documented as of this encounter
--- OUTSIDE RECORDS SUMMARY | 2025-02-07 16:22 | XMS_ITS | Clinical Summary ---
Author Organization [facility] Address [address] [place] [address] Care Team Providers Care Demo Coordinator Name Role Phone Melanie Cummins Primary Care Provider [phone] Allergies No known active allergies Medications Medication [...] age to complete this topic Care Teams Demo Coordinator Relationship Specialty Start Date End Date Melanie Cummins PA PCP - General Physician Design Drafter 12/09/21
--- OUTSIDE RECORDS SUMMARY | 2025-02-07 16:22 | XMS_ITS | Encounter Summary ---
Author Organization [facility] [place] [address] Care Team Providers Care Mobile Device Engineer Name Role Phone Gerardo Nice MD Primary Care Provider [phone] Encounter Details Date Type Department Care Team (Late st Contact Info) Description 07/31/2024 Lab Requisition [facility] - Main Lab [address] [place] [address] Gerardo Nice MD 38 [facility] [address] [place], [phone] Other specified sepsis (CMS/HCC V24, CMS/HCC [...] 07/31/2024 6:08 AM EDT Other specified sepsis ([facility] V24, [facility] V28) CBC AND DIFFERENTIAL Routine 07/31/2024 6:08 AM EDT Other specified sepsis ([facility] V24, [facility] V28) COMPREHENSIVE METABOLIC PANEL Routine 07/31/2024 6:08 AM EDT Other specified sepsis ([facility] V24, [facility] V28) documented in this encounter Results * (ABNORMAL) CBC auto differential (07/31/2024 6:08 AM EDT) WBC 9.4 4.8 - 10.8 K/mcL LAB HEMETOLOGY METHOD 07/31/2024 8:37 AM [facility] RBC 3.20(L) 4.50 - 5.50 M/mcL LAB HEMETOLOGY METHOD 07/31/2024 8:37 AM [facility] Hemoglobin 9.7(L) 13.5 - 17.5 g/dL LAB HEMETOLOGY METHOD 07/31/2024 8:37 AM [facility] Hematocrit 30.1(L) 42.0 - 54.0 % LAB HEMETOLOGY METHOD 07/31/2024 8:37 AM [facility] MCV 94.7 79.0 - 98.0 FL LAB HEMETOLOGY METHOD 07/31/2024 8:37 AM [facility] MCH 30.5 27.0 - 32.0 pcg LAB HEMETOLOGY METHOD 07/31/2024 8:37 AM [facility] LAB MCHC 32.2 32.0 - 37.0 g/dL LAB HEMETOLOGY METHOD 07/31/2024 8:37 AM [facility] RDW 15.6(H) 11.0 - 15.0 % LAB HEMETOLOGY METHOD 07/31/2024 8:37 AM [facility] Platelets 214 130 - 400 K/mcL LAB HEMETOLOGY METHOD 07/31/2024 8:37 AM [facility] MPV 10.9 7.0 - 11.0 FL LAB HEMETOLOGY METHOD 07/31/2024 8:37 AM [facility] NRBC 0.0 <1.0 % LAB HEMETOLOGY METHOD 07/31/2024 8:37 AM [facility] NRBC Absolute 0.00 <0.10 K/mcL LAB HEMETOLOGY METHOD 07/31/2024 8:37 AM [facility] Neutrophils Relative 73.2 % LAB HEMETOLOGY METHOD 07/31/2024 8:37 AM [facility] Lymphocytes Relative 15.2 % LAB HEMETOLOGY METHOD 07/31/2024 8:37 AM [facility] Monocytes Relative 9.8 % LAB HEMETOLOGY METHOD 07/31/2024 8:37 AM [facility] Eosinophils Relative 0.8 % LAB HEMETOLOGY METHOD 07/31/2024 8:37 AM [facility] Basophils Relative 0.6 % LAB HEMETOLOGY METHOD 07/31/2024 8:37 AM [facility] Immature Granulocytes Relative 0.4 % LAB HEMETOLOGY METHOD 07/31/2024 8:37 AM [facility] Neutrophils Absolute 6.90 1.50 - 7.00 K/mcL LAB HEMETOLOGY METHOD 07/31/2024 8:37 AM [facility] Lymphocytes Absolute 1.43 1.00 - 5.00 K/mcL LAB HEMETOLOGY METHOD 07/31/2024 8:[address] [facility] Monocytes Absolute 0.92 0.20 - 1.00 K/[facility] LAB HEMETOLOGY METHOD 07/31/2024 8:[address] [facility] Eosinophils Absolute 0.08 0.00 - 0.50 K/[facility] LAB HEMETOLOGY METHOD 07/31/2024 8:[address] [facility] Basophils Absolute 0.06 0.00 - 0.20 K/[facility] LAB HEMETOLOGY METHOD 07/31/2024 8:[address] [facility] Immature Granulocytes Absolute 0.04(H) 0.00 - 0.03 K/[facility] LAB HEMETOLOGY METHOD 07/31/2024 8:[address] [facility] Blood Venous blood specimen / Unknown Venipuncture / Unknown 07/31/2024 6:08 AM EDT 07/31/2024 8:14 AM EDT us Gerardo Nice MD LAB BLOOD ORDERABLES Final Resul t [facility] [address] [place] [address], * (ABNORMAL) Comprehensive metabolic panel (07/31/2024 6:08 AM EDT) Sodium 132(L) 133 - 145 mmol/L LAB CHEMISTRY METHOD 07/31/2024 9:[address] [facility] Potassium 4.3 3.5 - 5.5 mmol/L LAB CHEMISTRY METHOD 07/31/2024 9:[address] [facility] Chloride 95(L) 96 - 110 mmol/L LAB [facility]STR[facility] CO2 29 21 - 32 mmol/L LAB CHEMISTRY METHOD 07/31/2024 9:[address] [facility] Anion Gap 8 3 - 11 LAB CHEMISTRY METHOD 07/31/2024 9:15 AM [facility] Glucose 221(H) 70 - 100 mg/dL LAB CHEMISTRY METHOD 07/31/2024 9:15 AM [facility] BUN 13 5 - 25 mg/dL LAB CHEMISTRY METHOD 07/31/2024 9:15 AM [facility] Creatinine 0.54(L) 0.70 - 1.30 mg/dL LAB CHEMISTRY METHOD 07/31/2024 9:15 AM [facility] eGFR 114 >=60 mL/min/1. 73m2 LAB CHEMISTRY METHOD 07/31/2024 9:15 AM [facility] Comment:Calculation based on the Chronic Kidney Disease Epidemiology Collaboration (CKD-EPI) equation refit without adjustment for race. BUN/Creatinine Ratio 24.1 LAB CHEMISTRY METHOD 07/31/2024 9:15 AM [facility] Calcium 7.7(L) 8.5 - 10.5 mg/dL LAB CHEMISTRY METHOD 07/31/2024 9:15 AM [facility] AST (SGOT) 46(H) 10 - 42 unit/L LAB CHEMISTRY METHOD 07/31/2024 9:15 AM [facility] ALT (SGPT) 27 10 - 60 unit/L LAB CHEMISTRY METHOD 07/31/2024 9:15 AM [facility] Alkaline Phosphatase 91 42 - 121 unit/L LAB CHEMISTRY METHOD 07/31/2024 9:15 AM [facility] Total Protein 5.7(L) 6.0 - 8.0 g/dL LAB CHEMISTRY METHOD 07/31/2024 9:15 AM [facility] Albumin 1.5(L) 3.2 - 5.0 g/dL LAB CHEMISTRY METHOD 07/31/2024 9:15 AM [facility] Total Bilirubin 4.7(H) 0.0 - 1.4 mg/dL LAB CHEMISTRY METHOD 07/31/2024 9:[address] [facility] Blood Venous blood specimen / Unknown Venipuncture / Unknown 07/31/2024 6:08 AM EDT 07/31/2024 8:14 AM EDT us Gerardo Nice MD LAB BLOOD ORDERABLES Final Resul t [facility] [address] [place] [address], [place] [phone] documented in this encounter Visit Diagnoses Diagnosis Other specified sepsis (CMS/HCC V24, CMS/HCC V28) documented in this encounter Care Teams Mobile Device Engineer Relationship Specialty Start Date End Date Gerardo Nice MD [address] [place] [address], [phone] PCP - General Family Medicine 07/29/24 documented as of this encounter
--- OUTSIDE RECORDS SUMMARY | 2025-02-07 16:22 | XMS_ITS | Encounter Summary ---
Author Organization [facility] Address [address] [place] [address] Phone Care Team Providers Care Supervisor [employer] Name Role Phone Unavailable Primary Care Provider Unavailabl e Encounter Details Date Type Department Care Team (Late st Contact Info) Description 11/29/2024 Scanned Document [facility] [address] [place], [place] [id number] Yolanda Doll MD [address] [place] [address] Social History Tobacco Use Types [...]
--- OUTSIDE RECORDS SUMMARY | 2025-02-07 16:22 | XMS_ITS | Encounter Summary ---
Author Organization [facility] Address [address] [place] [address] Phone Care Team Providers Care Supervisor [employer] Name Role Phone Unavailable Primary Care Provider Unavailabl e Encounter Details Date Type Department Care Team (Late st Contact Info) Description 10/18/2024 Scanned Document [facility] [address] [place], [place] [id number] Yolanda Doll MD [address] [place] [address] Social History Tobacco Use Types [...]
--- OUTSIDE RECORDS SUMMARY | 2025-02-07 16:22 | XMS_ITS | Encounter Summary ---
Author Organization [facility] [place] [address] Care Team Providers Care Family And Consumer Education Teacher Name Role Phone Gerardo Nice MD Primary Care Provider [phone] Encounter Details Date Type Department Care Team (Late st Contact Info) Description 08/03/2024 Lab Requisition [facility] - Main Lab 299 [facility] [place] [address] Gerardo Nice MD 38 [facility] [address] [place], [phone] Unspecified infectious disease Social History Tobacco [...] mmol/L LAB CHEMISTRY METHOD 08/03/2024 10:45 AM [facility] Potassium 4.8 3.5 - 5.5 mmol/L LAB CHEMISTRY METHOD 08/03/2024 10:45 AM [facility] LAB Comment:Hemolysis present Chloride 94(L) 96 - 110 mmol/L LAB CHEMISTRY METHOD 08/03/2024 10:45 AM [facility] CO2 27 21 - 32 mmol/L LAB CHEMISTRY METHOD 08/03/2024 10:45 AM [facility] Anion Gap 8 3 - 11 LAB CHEMISTRY METHOD 08/03/2024 10:45 AM [facility] Glucose 163(H) 70 - 100 mg/dL LAB CHEMISTRY METHOD 08/03/2024 10:45 AM [facility] BUN 14 5 - 25 mg/dL LAB CHEMISTRY METHOD 08/03/2024 10:45 AM [facility] Creatinine 0.68(L) 0.70 - 1.30 mg/dL LAB CHEMISTRY METHOD 08/03/2024 10:45 AM [facility] eGFR 106 >=60 mL/min/1. 73m2 LAB CHEMISTRY METHOD 08/03/2024 10:45 AM [facility] Comment:Calculation based on the Chronic Kidney Disease Epidemiology Collaboration (CKD-EPI) equation refit without adjustment for race. BUN/Creatinine Ratio 20.6 LAB CHEMISTRY METHOD 08/03/2024 10:45 AM [facility] Calcium 8.1(L) 8.5 - 10.5 mg/dL LAB CHEMISTRY METHOD 08/03/2024 10:45 AM EDT [facility] Blood Venous blood specimen / Unknown Venipuncture / Unknown 08/03/2024 5:08 AM EDT 08/03/2024 9:30 AM EDT us Gerardo Nice MD LAB BLOOD ORDERABLES Final Resul t [facility] [address] [place] [address], documented in this encounter Visit Diagnoses Diagnosis Unspecified infectious disease documented in this encounter Care Teams Family And Consumer Education Teacher Relationship Specialty Start Date End Date Gerardo Nice MD [address] [place] [address] [address], [phone] PCP - General Family Medicine 07/29/24 documented as of this encounter
--- OUTSIDE RECORDS SUMMARY | 2025-02-07 16:22 | XMS_ITS | Encounter Summary ---
Author Organization [facility] [place] [address] Care Team Providers Care Animal Nutrition Teacher Name Role Phone Gerardo Nice MD Primary Care Provider [phone] Encounter Details Date Type Department Care Team (Late st Contact Info) Description 08/21/2024 Lab Requisition [facility] - Main Lab [address] [place] [address] Gerardo Nice MD 38 [facility] [address] [place], [phone] Other specified sepsis (CMS/HCC V24, CMS/HCC [...] 08/22/2024 6:17 AM EDT Other specified sepsis ([facility] V24, [facility] V28) CBC AND DIFFERENTIAL Routine 08/22/2024 6:17 AM EDT Other specified sepsis ([facility] V24, [facility] V28) COMPREHENSIVE METABOLIC PANEL Routine 08/22/2024 6:17 AM EDT Other specified sepsis ([facility] V24, [facility] V28) documented in this encounter Results * (ABNORMAL) CBC auto differential (08/22/2024 6:17 AM EDT) WBC 5.9 4.8 - 10.8 K/mcL LAB HEMETOLOGY METHOD 08/22/2024 11:12 AM [facility] RBC 3.10(L) 4.50 - 5.50 M/mcL LAB HEMETOLOGY METHOD 08/22/2024 11:12 AM [facility] Hemoglobin 9.8(L) 13.5 - 17.5 g/dL LAB HEMETOLOGY METHOD 08/22/2024 11:12 AM [facility] Hematocrit 30.1(L) 42.0 - 54.0 % LAB HEMETOLOGY METHOD 08/22/2024 11:12 AM [facility] MCV 96.2 79.0 - 98.0 FL LAB HEMETOLOGY METHOD 08/22/2024 11:12 AM [facility] MCH 31.3 27.0 - 32.0 pcg LAB HEMETOLOGY METHOD 08/22/2024 11:12 AM [facility] MCHC 32.6 32.0 - 37.0 g/dL LAB HEMETOLOGY METHOD 08/22/2024 11:12 AM [facility] RDW 14.2 11.0 - 15.0 % LAB HEMETOLOGY METHOD 08/22/2024 11:12 AM [facility] Platelets 213 130 - 400 K/mcL LAB HEMETOLOGY METHOD 08/22/2024 11:12 AM [facility] MPV 10.6 7.0 - 11.0 FL LAB HEMETOLOGY METHOD 08/22/2024 11:12 AM [facility] NRBC 0.0 <1.0 % LAB HEMETOLOGY METHOD 08/22/2024 11:12 AM [facility] NRBC Absolute 0.00 <0.10 K/mcL LAB HEMETOLOGY METHOD 08/22/2024 11:12 AM [facility] Neutrophils Relative 64.0 % LAB HEMETOLOGY METHOD 08/22/2024 11:12 AM [facility] Lymphocytes Relative 21.1 % LAB HEMETOLOGY METHOD 08/22/2024 11:12 AM [facility] Monocytes Relative 11.7 % LAB HEMETOLOGY METHOD 08/22/2024 11:12 AM [facility] Eosinophils Relative 2.2 % LAB HEMETOLOGY METHOD 08/22/2024 11:12 AM [facility] Basophils Relative 0.7 % LAB HEMETOLOGY METHOD 08/22/2024 11:12 AM [facility] Immature Granulocytes Relative 0.3 % LAB HEMETOLOGY METHOD 08/22/2024 11:12 AM [facility] Neutrophils Absolute 3.79 1.50 - 7.00 K/mcL LAB HEMETOLOGY METHOD 08/22/2024 11:12 AM [facility] Lymphocytes Absolute 1.25 1.00 - 5.00 K/mcL LAB HEMETOLOGY METHOD 08/22/2024 11:12 AM EDT [facility] Monocytes Absolute 0.69 0.20 - 1.00 K/[facility] LAB HEMETOLOGY METHOD 08/22/2024 11:12 AM EDT [facility] Eosinophils Absolute 0.13 0.00 - 0.50 K/[facility] LAB HEMETOLOGY METHOD 08/22/2024 11:12 AM EDT [facility] Basophils Absolute 0.04 0.00 - 0.20 K/[facility] LAB HEMETOLOGY METHOD 08/22/2024 11:12 AM EDT [facility] Immature Granulocytes Absolute 0.02 0.00 - 0.03 K/[facility] LAB HEMETOLOGY METHOD 08/22/2024 11:12 AM [facility] Blood Venous blood specimen / Unknown Venipuncture / Unknown 08/22/2024 6:17 AM EDT 08/22/2024 10:16 AM EDT us Gerardo Nice MD LAB BLOOD ORDERABLES Final Resul t [facility] [address] [place] [address], * (ABNORMAL) Comprehensive metabolic panel (08/22/2024 6:17 AM EDT) Sodium 133 133 - 145 mmol/L LAB CHEMISTRY METHOD 08/22/2024 12:11 PM [facility] Potassium 3.6 3.5 - 5.5 mmol/L LAB CHEMISTRY METHOD 08/22/2024 12:11 PM [facility] Chloride 93(L) 96 - 110 mmol/L LAB CHEMISTRY METHOD 08/22/2024 12:11 PM [facility] CO2 30 21 - 32 mmol/L LAB CHEMISTRY METHOD 08/22/2024 12:11 PM [facility] Anion Gap 10 3 - 11 LAB CHEMISTRY METHOD 08/22/2024 12:11 PM [facility] Glucose 222(H) 70 - 100 mg/dL LAB CHEMISTRY METHOD 08/22/2024 12:11 PM [facility] BUN 11 5 - 25 mg/dL LAB CHEMISTRY METHOD 08/22/2024 12:11 PM [facility] Creatinine 0.65(L) 0.70 - 1.30 mg/dL LAB CHEMISTRY METHOD 08/22/2024 12:11 PM [facility] eGFR 108 >=60 mL/min/1. 73m2 LAB CHEMISTRY METHOD 08/22/2024 12:11 PM [facility] Comment:Calculation based on the Chronic Kidney Disease Epidemiology Collaboration (CKD-EPI) equation refit without adjustment for race. BUN/Creatinine Ratio 16.9 LAB CHEMISTRY METHOD 08/22/2024 12:11 PM [facility] Calcium 8.3(L) 8.5 - 10.5 mg/dL LAB CHEMISTRY METHOD 08/22/2024 12:11 PM [facility] AST (SGOT) 32 10 - 42 unit/L LAB CHEMISTRY METHOD 08/22/2024 12:11 PM [facility] ALT (SGPT) 17 10 - 60 unit/L LAB CHEMISTRY METHOD 08/22/2024 12:11 PM [facility] Alkaline Phosphatase 88 42 - 121 unit/L LAB CHEMISTRY METHOD 08/22/2024 12:11 PM [facility] Total Protein 6.6 6.0 - 8.0 g/dL LAB CHEMISTRY METHOD 08/22/2024 12:11 PM [facility] Albumin 1.8(L) 3.2 - 5.0 g/dL LAB CHEMISTRY METHOD 08/22/2024 12:11 PM [facility] Total Bilirubin 1.7(H) 0.0 - 1.4 mg/dL LAB CHEMISTRY METHOD 08/22/2024 12:11 PM EDT [facility] Blood Venous blood specimen / Unknown Venipuncture / Unknown 08/22/2024 6:17 AM EDT 08/22/2024 10:16 AM EDT us Gerardo Nice MD LAB BLOOD ORDERABLES Final Resul t [facility] [address] [place] [address], documented in this encounter Visit Diagnoses Diagnosis Other specified sepsis (CMS/HCC V24, CMS/HCC V28) documented in this encounter Care Teams Animal Nutrition Teacher Relationship Specialty Start Date End Date Gerardo Nice MD [address] [place] [address], [phone] PCP - General Family Medicine 07/29/24 documented as of this encounter
--- OUTSIDE RECORDS SUMMARY | 2025-02-07 16:22 | XMS_ITS | Encounter Summary ---
Author Organization [facility] Address [address] [place] [address] Phone Care Team Providers Care Electrophonic Engineer Name Role Phone Unavailable Primary Care Provider Unavailabl e Encounter Details Date Type Department Care Team (Late st Contact Info) Description 11/21/2024 Scanned Document [facility] [address] [place], [place] [id number] Yolanda Doll MD [address] [place] [address] Social History Tobacco Use Types [...]
--- OUTSIDE RECORDS SUMMARY | 2025-02-07 16:22 | XMS_ITS | Encounter Summary ---
Author Organization [facility] [place] [address] Care Team Providers Care Screen Printing Loader Unloader Name Role Phone Gerardo Nice MD Primary Care Provider [phone] Encounter Details Date Type Department Care Team (Late st Contact Info) Description 07/29/2024 Lab Requisition [facility] - Main Lab 299 [facility] [place] [address] Gerardo Nice MD 38 [facility] [address] [place], [phone] Sepsis, unspecified organism (CMS/HCC V24, CMS/HCC [...] 07/29/2024 6:10 AM EDT Sepsis, unspecified organism ([facility] V24, [facility] V28) COMPREHENSIVE METABOLIC PANEL Routine 07/29/2024 6:10 AM EDT Sepsis, unspecified organism ([facility] V24, [facility] V28) documented in this encounter Results * (ABNORMAL) Comprehensive metabolic panel (07/29/2024 6:10 AM EDT) Sodium 131(L) 133 - 145 mmol/L LAB CHEMISTRY METHOD 07/29/2024 12:[address] [facility] Potassium 4.2 3.5 - 5.5 mmol/L LAB CHEMISTRY METHOD 07/29/2024 12:[address] [facility] Chloride 94(L) 96 - 110 mmol/L LAB CHEMISTRY METHOD 07/29/2024 12:[address] [facility] CO2 28 21 - 32 mmol/L LAB CHEMISTRY METHOD 07/29/2024 12:[address] [facility] Anion Gap 9 3 - 11 LAB CHEMISTRY METHOD 07/29/2024 12:[address] [facility] Glucose 232(H) 70 - 100 mg/dL LAB CHEMISTRY METHOD 07/29/2024 12:[address] [facility] BUN 17 5 - 25 mg/dL LAB CHEMISTRY METHOD 07/29/2024 12:[address] [facility] Creatinine 0.64(L) 0.70 - 1.30 mg/dL LAB CHEMISTRY METHOD 07/29/2024 12:[address] [facility] eGFR 108 >=60 mL/min/1. 73m2 LAB CHEMISTRY METHOD 07/[facility]24 [facility] Comment:Calculation based on the Chronic Kidney Disease Epidemiology Collaboration (CKD-EPI) equation refit without adjustment for race. BUN/Creatinine Ratio 26.6 LAB CHEMISTRY METHOD 07/29/2024 12:[address] [facility] Calcium 7.7(L) 8.5 - 10.5 mg/dL LAB CHEMISTRY METHOD 07/29/2024 12:[address] [facility] AST (SGOT) 47(H) 10 - 42 unit/L LAB CHEMISTRY METHOD 07/29/2024 12:[address] [facility] ALT (SGPT) 26 10 - 60 unit/L LAB CHEMISTRY METHOD 07/29/2024 12:[address] [facility] Alkaline Phosphatase 89 42 - 121 unit/L LAB CHEMISTRY METHOD 07/29/2024 12:[address] [facility] Total Protein 5.6(L) 6.0 - 8.0 g/dL LAB CHEMISTRY METHOD 07/29/2024 12:[address] [facility] Albumin 1.6(L) 3.2 - 5.0 g/dL LAB CHEMISTRY METHOD 07/29/2024 12:[address] [facility] Total Bilirubin 5.3(H) 0.0 - 1.4 mg/dL LAB CHEMISTRY METHOD 07/29/2024 12:[address] [facility] Blood Venous blood specimen / Unknown Venipuncture / Unknown 07/29/2024 6:10 AM EDT 07/29/2024 10:55 AM EDT us Gerardo Nice MD LAB BLOOD ORDERABLES Final Resul t [facility] [address] [place] [address], [place] [phone] * (ABNORMAL) Complete blood count (07/29/2024 6:10 AM EDT) WBC 11.8(H) 4.8 - 10.8 K/mcL LAB HEMETOLOGY METHOD 07/29/2024 11:[address] [facility] RBC 3.10(L) 4.50 - 5.50 M/mcL LAB HEMETOLOGY METHOD 07/29/2024 11:[address] [facility] Hemoglobin 9.4(L) 13.5 - 17.5 g/dL LAB HEMETOLOGY METHOD 07/29/2024 11:[address] [facility] Hematocrit 29.2(L) 42.0 - 54.0 % LAB HEMETOLOGY METHOD 07/29/2024 11:[address] [facility] MCV 93.9 79.0 - 98.0 FL LAB HEMETOLOGY METHOD 07/29/2024 11:[address] [facility] MCH 30.2 27.0 - 32.0 pcg LAB HEMETOLOGY METHOD 07/29/2024 11:[address] [facility] MCHC 32.2 32.0 - 37.0 g/dL LAB HEMETOLOGY METHOD 07/29/2024 11:[address] [facility] RDW 15.8(H) 11.0 - 15.0 % LAB HEMETOLOGY METHOD 07/29/2024 11:[address] [facility] Platelets 181 130 - 400 K/[facility] LAB HEMETOLOGY METHOD 07/29/2024 11:[address] [facility] MPV 11.1(H) 7.0 - 11.0 FL LAB HEMETOLOGY METHOD 07/29/2024 11:[address] [facility] NRBC 0.0 <1.0 % LAB HEMETOLOGY METHOD 07/29/2024 11:[address] [facility] NRBC Absolute 0.00 <0.10 K/[facility] LAB HEMETOLOGY METHOD 07/29/2024 11:47 AM EDT [facility] Blood Venous blood specimen / Unknown Venipuncture / Unknown 07/29/2024 6:10 AM EDT 07/29/2024 10:55 AM EDT us Gerardo Nice MD LAB BLOOD ORDERABLES Final Resul t [facility] [address] [place] [address], documented in this encounter Visit Diagnoses Diagnosis Sepsis, unspecified organism (CMS/HCC V24, CMS/HCC V28) documented in this encounter Care Teams Screen Printing Loader Unloader Relationship Specialty Start Date End Date Gerardo Nice MD [address] [place] [address], [phone] PCP - General Family Medicine 07/29/24 documented as of this encounter
--- OUTSIDE RECORDS SUMMARY | 2025-02-07 16:22 | XMS_ITS | Encounter Summary ---
Author Organization [facility] [place] [address] Care Team Providers Care Certified Credit Counselor Name Role Phone Gerardo Nice MD Primary Care Provider [phone] Encounter Details Date Type Department Care Team (Late st Contact Info) Description 08/10/2024 Lab Requisition [facility] - Main Lab [address] [place] [address] Gerardo Nice MD 38 [facility] [address], [address] Other specified sepsis (CMS/HCC V24, CMS/[facility] V28); Type 2 diabetes mellitus without complications [...] 08/10/2024 5:21 AM EDT Other specified sepsis ([facility] V24, [facility] V28) Type 2 diabetes mellitus without complications ([facility] V24, [facility] V28) BASIC METABOLIC PANEL Routine 08/10/2024 5:21 AM EDT Other specified sepsis ([facility] V24, [facility] V28) Type 2 diabetes mellitus without complications ([facility] V24, [facility] V28) documented in this encounter Results * (ABNORMAL) Basic metabolic panel (08/10/2024 5:21 AM EDT) Sodium 135 133 - 145 mmol/L LAB CHEMISTRY METHOD 08/10/2024 10:40 AM [facility] Potassium 4.2 3.5 - 5.5 mmol/L LAB CHEMISTRY METHOD 08/10/2024 10:40 AM [facility] Chloride 99 96 - 110 mmol/L LAB CHEMISTRY METHOD 08/10/2024 10:40 AM [facility] CO2 28 21 - 32 mmol/L LAB CHEMISTRY METHOD 08/10/2024 10:40 AM [facility] Anion Gap 8 3 - 11 LAB CHEMISTRY METHOD 08/10/2024 10:40 AM [facility] Glucose 175(H) 70 - 100 mg/dL LAB CHEMISTRY METHOD 08/10/2024 10:40 AM [facility] BUN 9 5 - 25 mg/dL LAB CHEMISTRY METHOD 08/10/2024 10:40 AM [facility] Creatinine 0.48(L) 0.70 - 1.30 mg/dL LAB CHEMISTRY METHOD 08/10/2024 10:40 AM EDT [facility] eGFR 118 >=60 mL/min/1. 73m2 LAB CHEMISTRY METHOD 08/10/2024 10:40 AM EDT [facility] Comment:Calculation based on the Chronic Kidney Disease Epidemiology Collaboration (CKD-EPI) equation refit without adjustment for race. BUN/Creatinine Ratio 18.8 LAB CHEMISTRY METHOD 08/10/2024 10:40 AM EDT [facility] Calcium 8.3(L) 8.5 - 10.5 mg/dL LAB CHEMISTRY METHOD 08/10/2024 10:40 AM EDT [facility] Blood Venous blood specimen / Unknown Venipuncture / Unknown 08/10/2024 5:21 AM EDT 08/10/2024 9:44 AM EDT us Gerardo Nice MD LAB BLOOD ORDERABLES Final Resul t [facility] [address] [place] [address], [place] [phone] * (ABNORMAL) Complete blood count (08/10/2024 5:21 AM EDT) WBC 6.0 4.8 - 10.8 K/mcL LAB HEMETOLOGY METHOD 08/10/2024 10:25 AM [facility] RBC 2.90(L) 4.50 - 5.50 M/mcL LAB HEMETOLOGY METHOD 08/10/2024 10:25 AM EDT [facility] Hemoglobin 9.1(L) 13.5 - 17.5 g/dL LAB HEMETOLOGY METHOD 08/10/2024 10:25 AM EDT [facility] Hematocrit 28.5(L) 42.0 - 54.0 % LAB HEMETOLOGY METHOD 08/10/2024 10:25 AM EDT [facility] MCV 96.9 79.0 - 98.0 FL LAB HEMETOLOGY METHOD 08/10/2024 10:25 AM EDT [facility] MCH 31.0 27.0 - 32.0 pcg LAB HEMETOLOGY METHOD 08/10/2024 10:25 AM EDT [facility] MCHC 31.9(L) 32.0 - 37.0 g/dL LAB HEMETOLOGY METHOD 08/10/2024 10:25 AM EDT [facility] RDW 14.9 11.0 - 15.0 % LAB HEMETOLOGY METHOD 08/10/2024 10:25 AM EDT [facility] Platelets 185 130 - 400 K/mcL LAB HEMETOLOGY METHOD 08/10/2024 10:25 AM EDT [facility] MPV 10.6 7.0 - 11.0 FL LAB HEMETOLOGY METHOD 08/10/2024 10:25 AM EDT [facility] NRBC 0.0 <1.0 % LAB HEMETOLOGY METHOD 08/10/2024 10:25 AM EDT [facility] NRBC Absolute 0.00 <0.10 K/mcL LAB HEMETOLOGY METHOD 08/10/2024 10:25 AM EDT [facility] Blood Venous blood specimen / Unknown Venipuncture / Unknown 08/10/2024 5:21 AM EDT 08/10/2024 9:44 AM EDT us Gerardo Nice MD LAB BLOOD ORDERABLES Final Resul t [facility] [address] [place] [address], documented in this encounter Visit Diagnoses Diagnosis Other specified sepsis (CMS/HCC V24, CMS/HCC V28) Type 2 diabetes mellitus without complications (CMS/HCC V24, CMS/HCC V28) documented in this encounter Care Teams Certified Credit Counselor Relationship Specialty Start Date End Date Gerardo Nice MD [address] [place] [address] [address], [phone] PCP - General Family Medicine 07/29/24 documented as of this encounter
--- OUTSIDE RECORDS SUMMARY | 2025-02-07 16:22 | XMS_ITS | Encounter Summary ---
Author Organization [facility] [place] [address] Care Team Providers Care Trash Hauler Name Role Phone Gerardo Nice MD Primary Care Provider [phone] Encounter Details Date Type Department Care Team (Late st Contact Info) Description 08/14/2024 Lab Requisition [facility] - Main Lab [address] [place] [address] Gerardo Nice MD 38 [facility] [address] [place], [phone] Other specified sepsis (CMS/HCC V24, CMS/HCC [...] 08/14/2024 5:40 AM EDT Other specified sepsis ([facility] V24, [facility] V28) CBC AND DIFFERENTIAL Routine 08/14/2024 5:40 AM EDT Other specified sepsis ([facility] V24, [facility] V28) COMPREHENSIVE METABOLIC PANEL Routine 08/14/2024 5:40 AM EDT Other specified sepsis ([facility] V24, [facility] V28) documented in this encounter Results [...] LAB HEMETOLOGY METHOD 08/14/2024 12:[address] [facility] Monocytes Absolute 0.84 0.20 - 1.00 K/[facility] LAB HEMETOLOGY METHOD 08/14/2024 12:[address] [facility] Eosinophils Absolute 0.17 0.00 - 0.50 K/[facility] LAB HEMETOLOGY METHOD 08/14/2024 12:[address] [facility] Basophils Absolute 0.03 0.00 - 0.20 K/[facility] LAB HEMETOLOGY METHOD 08/14/2024 12:[address] [facility] Immature Granulocytes Absolute 0.02 0.00 - 0.03 K/[facility] LAB HEMETOLOGY METHOD 08/14/2024 12:01 PM [facility] Blood Venous blood specimen / Unknown Venipuncture / Unknown 08/14/2024 5:40 AM EDT 08/14/2024 10:55 AM EDT us Gerardo Nice MD LAB BLOOD ORDERABLES Final Resul t [facility] [address] [place] [address], * (ABNORMAL) Comprehensive metabolic panel (08/14/2024 5:40 AM EDT) Sodium 132(L) 133 - 145 mmol/L LAB CHEMISTRY METHOD 08/14/2024 12:[address] [facility] Potassium 3.9 3.5 - 5.5 mmol/L LAB CHEMISTRY METHOD 08/14/2024 12:52 PM [facility] Chloride 95(L) 96 - 110 mmol/L LAB CHEMISTRY METHOD 08/14/2024 12:52 PM [facility] CO2 29 21 - 32 mmol/L LAB CHEMISTRY METHOD 08/14/2024 12:[address] [facility] Anion Gap 8 [...] LAB CHEMISTRY METHOD 08/14/2024 12:[address] [facility] Blood Venous blood specimen / Unknown Venipuncture / Unknown 08/14/2024 5:40 AM EDT 08/14/2024 10:55 AM EDT us Gerardo Nice MD LAB BLOOD ORDERABLES Final Resul t [facility] [address] [place] [address], documented in this encounter Visit Diagnoses Diagnosis Other specified sepsis (CMS/HCC V24, CMS/HCC V28) documented in this encounter Care Teams Trash Hauler Relationship Specialty Start Date End Date Gerardo Nice MD [address] [place] [address], [phone] PCP - General Family Medicine 07/29/24 documented as of this encounter
--- OUTSIDE RECORDS SUMMARY | 2025-02-07 16:22 | XMS_ITS | Encounter Summary ---
Author Organization [facility] [place] [address] Care Team Providers Care Gunite Mixer Name Role Phone Gerardo Nice MD Primary Care Provider [phone] Encounter Details Date Type Department Care Team (Late st Contact Info) Description 08/10/2024 Lab Requisition [facility] - Main Lab [address] [place] [address] Gerardo Nice MD 38 [facility] [address] [place], [phone] Diarrhea, unspecified Social History Tobacco Use [...] Antigen Negative Negative 08/10/2024 11:44 AM EDT [facility] C difficile Toxins A+B, EIA Negative Negative 08/10/2024 11:44 AM EDT [facility] Comment:NEGATIVE FOR TOXIN P RODUCING CLOSTRIDIOIDES DIFFICILE, NO ADDITIONAL TESTING IS NECESSARY. Stool Rectum structure / Unknown 08/09/2024 8:00 PM EDT 08/10/2024 9:32 AM EDT us Gerardo Nice MD LAB MICROBIOLOGY - GENERAL ORDER GINA Final Result [facility] [address] [place] [address], documented in this encounter Visit Diagnoses Diagnosis Diarrhea, unspecified documented in this encounter Care Teams Gunite Mixer Relationship Specialty Start Date End Date Gerardo Nice MD [address] [place] [address] [address] [place], [phone] PCP - General Family Medicine 07/29/24 documented as of this encounter
--- OUTSIDE RECORDS SUMMARY | 2025-02-07 16:23 | XMS_ITS | Clinical Summary ---
Author Organization [facility] Address [address] [place] [phone] Care Team Providers Care Razor Grinder Name Role Phone Sammie Estrella PA-C Primary Care Provider [phone] Allergies No known active allergies Medications cyclobenzaprine [...] mg total) daily. 30 tablet 2 5 Active Additional Information Patient not taking.Reported [...] CBC, CMP, ESR, CRP and fax to [phone] Assessment & Plan (11/05/2024 1:58 PM EDT): Recent L4-L5 osteomyelitis epidural abscess. Previous admission s/p L3 lumbar decompression and fusion 10/12 Continue IV Rocephin until 11/23 per ID recommendations ID following; Obtain q. Wednesday CBC, CMP, ESR, CRP and fax to [phone] Assessment & Plan (11/04/2024 1:32 PM EDT): Recent L4-L5 osteomyelitis epidural abscess. Previous admission s/p L3 lumbar decompression and fusion 10/12 Continue IV Rocephin until 11/23 ID following; Obtain q. Wednesday CBC, CMP, ESR, CRP and fax to [phone] Assessment & Plan (11/03/2024 4:34 PM EDT): Recent L4-L5 osteomyelitis epidural abscess. Previous admission s/p L3 lumbar decompression and fusion 10/12 Continue IV Rocephin until 11/23 ID following; Obtain q. Wednesday CBC, CMP, ESR, CRP and fax to [phone] Assessment & Plan (11/02/2024 3:45 PM EDT): Recent L4-L5 osteomyelitis epidural abscess. Previous admission s/p L3 lumbar decompression and fusion 10/12 Continue IV Rocephin until 11/23 ID following; Obtain q. Wednesday CBC, CMP, ESR, CRP and fax to [phone] Assessment & Plan (11/01/2024 4:35 PM EDT): Recent L4-L5 osteomyelitis epidural abscess. Previous admission s/p L3 lumbar decompression and fusion 10/12 Continue IV Rocephin until 11/23 ID following; Obtain q. Wednesday CBC, CMP, ESR, CRP and fax to [phone] Assessment & Plan (10/31/2024 3:51 PM EDT): [...] labs Discussed with neurology today Dr Eugene Rinladi who reviewed his scans and confirmed absence [...] Description 11/20/2024 1:00 PM EDT Office Visit [facility] [place] [address] [place] [address] Merle Villafana PA S/P lumbar fusion (Primary Dx) 11/20/2024 8:15 AM EDT Ancillary Procedure [facility] [place] [address] [place] [phone] Merle Villafana PA S/P lumbar fusion 11/20/2024 Travel 11/16/2024 2:00 PM EDT Clinical Support [facility] [address] [place] [phone] Mahesh Interiano MD Petracca, Nicole L, RD Weakness (Primary Dx); Controlled type 2 diabetes mellitus without complication, without long-term current use of insulin ([facility]) 10/28/2024 4:43 PM EDT - 11/07/2024 1:04 PM EDT Hospital Encounter [facility] [address] [place] [address] Ann Marie Bloom MD Thakurathi, Priyesh, MD Pokhrel, Kamal, MD Botzak, MD Jaydon Kirk Kareem A, MD Weakness (Primary Dx); Hypokalemia; Confusion; Somnolence; Acute on chronic anemia; Drug-induced constipation; Osteomyelitis of lumbar spine (HCC) Discharge Disposition: Home with Health Care Services from Last 3 Months Social History Tobacco Use Types Packs/Day Years Used Date Smoking Tobacco: Never Smokeless Tobacco: Never Tobacco Cessation:Counseling Given: Not Answered Alcohol Use Standard Drinks/Week Comments Never 0 (1 standard drink = 0.6 oz pur e alcohol) [facility] Utilities Answer Date Recorded In the past [...] any time in the past 12 m [facility], were you homeless or living in a group home (including now)? No 10/29/2024 Sex and Gender [...] 11/20/2024 1:15 PM EDT Plan of Treatment Health Maintenance [...] this topic Medical Devices Implanted Type Area Machine Set Up Device Identifier Shelf Expiration Date Model / Serial / Lot Iflx-Gf-100 Influx Proteios Xl - [id number] Implanted:Qty: 1 on 10/12/2024 by Andrey Bailon MD at [facility] Tissue Bilatera l: Back [employer] 04/30/2029 IFLX-GF- 100 / [id number] / Iflx-Fw-05 Graft Bone Influx Plus Demineralized Bone Matrix 5 Cc Allogr - [id number] Implanted:Qty: 1 on 10/12/2024 by Andrey Bailon MD at [facility] Tissue Bilatera l: Back [employer] 06/23/2027 IFLX-FW- 05 / [id number] / [id number] Iflx-Fw-05 Graft Bone Influx Plus Demineralized Bone Matrix 5 Cc Allogr - [id number] Implanted:Qty: 1 on 10/12/2024 by Andrey Bailon MD at [facility] Tissue Bilatera l: Back [employer] 06/23/2027 IFLX-FW- 05 / [id number] / [id number] 620-010 Filler Bone Void 10cc 20cc Calcium Slf Stimulan Rpd Cure Kit - [id number] Implanted:Qty: 1 on 10/12/2024 by Andrey Bailon MD at [facility] Void Filler Bilatera l: Back [employer] - A BTG INT [id number] 04/28/2027 620-010 / / [id number] 7.5 X 50ml Screw Implanted:Qty: 2 on 10/12/2024 by Andrey Bailon MD at [facility] N/A: Spine Lumbar [id number] 50 / / 7.5 X 55mm Screw Implanted:Qty: 4 on 10/12/2024 by Andrey Bailon MD at [facility] N/A: Spine Lumbar [facility] [id number] / / 9.0 X 110 Screw Implanted:Qty: 2 on 10/12/2024 by Andrey Bailon MD at [facility] N/A: Spine Lumbar [facility] [id number] 0 / / Set Screw Implanted:Qty: 8 on 10/12/2024 by Andrey Bailon MD at [facility] N/A: Spine Lumbar [facility] [id number] / / 120mm Adam Implanted:Qty: 2 on 10/12/2024 by Andrey Bailon MD at [facility] N/A: Spine Lumbar [facility] [id number] / / Procedures Procedure Name Priority Date/Time Associated Diagnosis Comments XR LUMBAR SPINE 2 OR 3 VIEWS Routine 11/20/2024 1:07 PM EDT S/P lumbar fusion POCT GLUCOSE, FINGERSTICK (CHARGE) Routine 11/07/2024 11:48 AM EDT POCT GLUCOSE, FINGERSTICK (CHARGE) Routine 11/07/2024 7:57 AM EDT COMPLETE BLOOD COUNT, WITHOUT DIFFERENTIAL Routine 11/07/2024 7:00 AM EDT POCT GLUCOSE, FINGERSTICK (CHARGE) Routine 11/07/2024 2:09 AM EDT COMPREHENSIVE METABOLIC PANEL Routine 11/06/2024 6:00 AM EDT HEMOGLOBIN A1C WITH ESTIMATED AVERAGE GLUCOSE STAT 10/29/2024 9:32 AM EDT from Last 3 Months or Most Recently Relevant to Health Maintenance Results * XR Lumbar spine 2 or [...] 11:48 AM EDT) Only the most recent of3 resultswithin the time period is included. POC Glucose 216(H) 65 - 99 mg/dL 11/07/2024 11:52 AM EDT Blood specimen / Unknown 11/07/2024 11:48 AM EDT 11/07/2024 11:52 AM EDT Ann Marie Bloom MD POINT OF CARE TEST ORDERABLES Fi nal Result HOSPITAL LAB See Below * (ABNORMAL) COMPLETE BLOOD COUNT, WITHOUT DIFFERENTIAL (11/07/2024 7:00 AM EDT) White Blood Cell Count 4.7 4.0 - 11.0 Thou/uL 11/07/2024 10:49 AM [facility] Platelet Count 115(L) 150 - 450 Thou/uL 11/07/2024 10:49 AM [facility] Hemoglobin 7.7(L) 13.0 - 17.7 g/dL 11/07/2024 10:49 AM [facility] Hematocrit 24.1(L) 39.0 - 54.0 % 11/07/2024 10:49 AM [facility] Red Blood Cell Count 2.63(L) 4.50 - 6.20 Mil/uL 11/07/2024 10:49 AM [facility] MCV 92 80 - 100 fL 11/07/2024 10:49 AM [facility] MCH 29.3 27.0 - 31.0 pg 11/07/2024 10:49 AM [facility] MCHC 32.0 30.0 - 36.0 g/dL 11/07/2024 10:49 AM [facility] RDW 21.3(H) 11.5 - 14.5 % 11/07/2024 10:49 AM [facility] MPV 11.1 7.5 - 12.5 fL 11/07/2024 10:49 AM [facility] Immature Platelet Fraction 5.6 1.2 - 8.6 % 11/07/2024 10:49 AM [facility] Blood Blood specimen / Unknown 11/07/2024 7:00 AM EDT 11/07/2024 10:19 AM EDT us Mahesh Interiano MD LAB BLOOD ORDERABLES Final R esult [address] [address], [address] [address] * (ABNORMAL) Comprehensive Metabolic Panel (11/06/2024 6:00 AM ED) Glucose 183(H) 65 - 99 mg/dL 11/06/2024 7:39 AM [facility] Comment:Fasting: <100 mg/dL, Non-Fasting: <200 mg/dL (ADA 2004) Blood Urea Nitrogen (BUN) 7(L) 8 - 21 mg/dL 11/06/2024 7:39 AM [facility] Creatinine 0.8 0.5 - 1.3 mg/dL 11/06/2024 7:39 AM [facility] eGFR >90 >59 11/06/2024 7:39 AM [facility] Comment:CKD-EPI (2020) in mL /min/1.73 sq meters. Sodium 140 136 - 145 mmol/L 11/06/2024 7:39 AM [facility] Potassium 4.1 3.4 - 5.3 mmol/L 11/06/2024 7:39 AM [facility] Chloride 105 98 - 107 mmol/L 11/06/2024 7:39 AM [facility] CO2 23 22 - 33 mmol/L 11/06/2024 7:39 AM [facility] Calcium 9.1 8.7 - 10.5 mg/dL 11/06/2024 7:39 AM [facility] Alkaline Phosphatase 124 45 - 128 U/L 11/06/2024 7:39 AM [facility] Aspartate Aminotrans (AST) 43 10 - 55 U/L 11/06/2024 7:39 AM [facility] Alanine Aminotrans (ALT) 21 10 - 55 U/L 11/06/2024 7:39 AM [facility] Bilirubin, Total 2.5(H) 0.2 - 1.0 mg/dL 11/06/2024 7:39 AM [facility] Protein, Total 6.1(L) 6.3 - 8.3 g/dL 11/06/2024 7:39 AM [facility] Albumin 3.4(L) 3.5 - 5.0 g/dL 11/06/2024 7:39 AM [facility] BUN/Creatinine Ratio 9(L) 10.0 - 25.0 Ratio 11/06/2024 7:39 AM EDT [facility] Globulin 2.7 1.5 - 3.9 g/dL 11/06/2024 7:39 AM EDT [facility] Albumin/Globulin Ratio 1.3 1.0 - 3.0 Ratio 11/06/2024 7:39 AM EDT [facility] Anion Gap 12 7 - 17 11/06/2024 7:39 AM EDT [facility] Blood Blood specimen / Unknown 11/06/2024 6:00 AM EDT 11/06/2024 6:49 AM EDT Mahesh Interiano MD LAB BLOOD ORDERABLES Final R esult Performing Organization Address [facility] [place] [address], [place] [address] * (ABNORMAL) Hemoglobin A1c with Estimated Average Glucose (10/29/2024 9:32 AM EDT) Hemoglobin A1C 6.7(H) <5.7 % 10/29/2024 11:21 AM EDT [facility] Comment: A1c% Interpretation 5.7 - 6.0 Increase risk of diabetes 6.1 - 6.4 Higher risk of diabetes > or = 6.5 Consistent with diabetes Diabetes Care, 33(Supp 1):S1-S61, 2010 Estimated Average Glucose 146 mg/dL 10/29/2024 11:21 AM EDT [facility] Blood Blood specimen / Unknown 10/29/2024 9:32 AM EDT 10/29/2024 9:40 AM EDT Roman Rangel MD LAB BLOOD ORDERABLES Final Result Performing Organization Address [facility] [place] [address], [place] [address] from Last 3 Months or Most Recently Relevant to Health Maintenance Insurance UMR UMR Advance Directives * Full [...] 10:01 PM 10/09/2024 9:29 PM Care Teams Razor Grinder Relationship Specialty Start Date End Date Sammie Estrella PA-C [address] [place] [address] [place] [address] PCP - General Internal Medicine 11/20/24
--- OUTSIDE RECORDS SUMMARY | 2025-02-07 16:23 | XMS_ITS | Clinical Summary ---
Author Organization [facility] [address] Address [address], [address] [place] [address] Care Team Providers Care Seed Technician Name Role Phone Unavailable Primary Care [...] PM EDT Follow Up [facility] [address] [place], [place] [id number] Yolanda Doll MD Epidural abscess, L2-L5 (HC CODE) (Primary Dx); Acute osteomyelitis of lumbar spine (HC Code) ; Bacteremia due to group B Streptococcus; Hepatic cirrhosis, unspecified hepatic cirrhosis type, unspecified whether ascites present (HC Code) 2024 Travel 12/01/2024 Scanned Document [facility] [address] [place] [address] Yolanda Doll MD 11/29/2024 Scanned Document [facility] [address] [place] [address] Yolanda Doll MD 11/21/2024 Results Follow-Up [facility] [address] [place] [address] Yolanda Doll MD Lab Scan 11/21/2024 Telephone [facility] [address] [address] Wen Mohr RN Other 11/21/2024 Scanned Document [facility] [address] [address] Yolanda Doll MD 11/15/2024 Results Follow-Up [facility] [address] [place] [address] Yolanda Doll MD Lab Scan 11/15/2024 Scanned Document [facility] [address] [address] Yolanda Doll MD from Last 3 Months [...] LAB SCAN Routine 11/15/2024 9:19 AM EDT COMPREHENSIVE METABOLIC PANEL Routine 11/14/2024 11:55 AM EDT CBC AND DIFFERENTIAL Routine 11/14/2024 11:55 AM EDT C-REACTIVE PROTEIN (CRP) Routine 11/14/2024 11:55 AM EDT SEDIMENTATION RATE (ESR) Routine 11/14/2024 11:55 AM EDT from Last 3 Months Results * Lab Scan (12/01/2024 9:30 AM EDT) Only the most recent of4 resultswithin the time period is included. us Yolanda Doll MD LAB BLOOD ORDERABLES Liliam l Result * Sedimentation rate (ESR) (11/14/2024 11:55 AM EDT) Pathologist [facility] Sed Rate 16 0 - 30 mm/hr 11/14/2024 11:5 5 AM EDT 11/14/2024 Narrative [facility] - 11/15/2024 7:05 AM EDT Specimen Comment: A courtesy copy of this report has been sent to [phone] Performed at: [facility] [id number] Condenser Operator: Pippa Pérez MD, Phone: [phone] us Yolanda Doll MD LAB BLOOD ORDERABLES Liliam l Result [facility] * (ABNORMAL) CBC and differential (11/14/2024 11:55 AM EDT) Pathologist [facility] WBC 4.3 3.4 - 10.8 x10E3/uL RBC 2.54(LL) 4.14 - 5.80 x10E6/uL Hemoglobin 7.9(L) 13.0 - 17.7 g/dL Hematocrit 25.4(L) 37.5 - 51.0 % MCV 100(H) 79 - 97 fL MCH 31.1 26.6 - 33.0 pg MCHC 31.1(L) 31.5 - 35.7 g/dL RDW 18.8(H) 11.6 - 15.4 % Platelets 89(LL) 150 - 450 x10E3/uL Neutrophils 76 Not Estab. % Lymphocytes 15 Not Estab. % Monocytes 3 Not Estab. % Eosinophils 5 Not Estab. % Basophils 1 Not Estab. % Neutrophils Absolute 3.3 1.4 - 7.0 x10E3/uL Lymphocytes Absolute 0.6(L) 0.7 - 3.1 x10E3/uL Monocytes Absolute 0.1 0.1 - 0.9 x10E3/uL Eosinophils Absolute 0.2 0.0 - 0.4 x10E3/uL Baso (Absolute) 0.0 0.0 - 0.2 x10E3/uL Hematology Comments: Note: Comment: CBC met reflex criteria for review of peripheral smear by medical laboratory professional. Manual differential was performed. 11/14/2024 11:5 5 AM EDT 11/14/2024 Narrative [facility] - 11/15/2024 7:05 AM EDT Specimen Comment: A courtesy copy of this report has been sent to [phone] Performed at: [address] [place] [id number] Condenser Operator: Pippa Pérez MD, Phone: [phone] Yolanda Doll MD LAB BLOOD ORDERABLES Liliam l Result Performing Organization Address [facility] Co de Phone Number [facility] * C-reactive protein (CRP) (11/14/2024 11:55 AM EDT) [facility] CRP 8 0 - 10 mg/L 11/14/2024 11:5 5 AM EDT 11/14/2024 Narrative [facility] - 11/15/2024 7:05 AM EDT Specimen Comment: A courtesy copy of this report has been sent to [phone] Performed at: [address] [place] [id number] Condenser Operator: Pippa Pérez MD, Phone: [phone] Yolanda Doll MD LAB BLOOD ORDERABLES Liliam l Result Performing Organization Address [facility]/ZIP Co de Phone Number [facility] * (ABNORMAL) Comprehensive metabolic panel (11/14/2024 11:55 AM EDT) Pathologist [facility] Glucose 299(H) 70 - 99 mg/dL BUN 9 8 - 27 mg/dL Creatinine, Ser 0.86 0.76 - 1.27 mg/dL EGFR 99 >59 mL/min/1.7 3 BUN/Creatinine Ratio 10 10 - 24 Sodium 136 134 - 144 mmol/L Potassium 4.2 3.5 - 5.2 mmol/L Chloride 101 96 - 106 mmol/L CO2 22 20 - 29 mmol/L Calcium 8.6 8.6 - 10.2 mg/dL Total Protein 5.6(L) 6.0 - 8.5 g/dL Albumin 3.1(L) 3.8 - 4.9 g/dL Globulin, Total 2.5 1.5 - 4.5 g/dL Total Bilirubin 1.5(H) 0.0 - 1.2 mg/dL Alkaline Phosphatase 115 44 - 121 IU/L AST 29 0 - 40 IU/L ALT 12 0 - 44 IU/L 11/14/2024 11:5 5 AM EDT 11/14/2024 Narrative [facility] - 11/15/2024 7:05 AM EDT Specimen Comment: A courtesy copy of this report has been sent to [phone] Performed at: - [address] [id number] Condenser Operator: Pippa Pérez MD, Phone: [phone] us Yolanda Doll MD LAB BLOOD ORDERABLES Liliam l Result [facility] from Last 3 Months Insurance
--- OUTSIDE RECORDS SUMMARY | 2025-02-07 16:23 | XMS_ITS | Clinical Summary ---
Author Organization [facility] Address [address] [place] [address] Phone Care Team Providers Care Cyber Security Architect Name Role Phone Gerardo Nice MD Primary Care Provider [phone] Allergies No known active allergies Medications cyclobenzaprine [...] 09/06/2024 Other cirrhosis of liver (CMS/HCC V24, [facility]/HCC V 28) 09/06/2024 Type 2 diabetes mellitus wit hout complication, without long-term current use of insulin (CMS/HCC V24, [facility]/HCC V28) 09/06/2024 Sepsis (CMS/HCC V24, [facility]/HCC V28) 07/20/2024 Large cell lymphoma (CMS/HCC V24, [facility]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 10/2008 Morbid obesity (CMS/HCC V24, [facility] V28) 2008 Elevated blood pressure read ing without diagnosis of hypertension 08/24/2008 Surgical History Surgery Date Site/Laterality Comments ROTATOR CUFF REPAIR PROCEDURE: HISTORICAL ROTATOR CUFF REPAIR; COMMENT: bilateral COLONOSCOPY 09/2009 PROCEDURE: [place] COLONOSCOPY FLX DX W/COLLJ SPEC WHEN PFRMD; COMMENT: Up to cecum, good preparation, 2 small polyps removed:tubular adenoma/hyperplastic, diverticulosis Medical History Medical History Date Comments Morbid obesity (CMS/HCC V24, [facility] V28) 08/24/2008 DX:Morbid obesity (HCC) 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 V24, CMS/HCC V28) DX: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 (HCC) Family History Relation Name Status Comments Father Alive low blood press ure, hyperlipidemia, [place] at age 65, hemochromatosis Mother Alive obesity, [...] 08/22/2024 6:17 AM EDT Other specified sepsis (CMS/[facility] V24, [facility] V28) HEPATITIS PANEL, ACUTE WITH REFLEX TO CONFIRMATION Add-On 07/23/2024 6:55 AM EDT HEMOGLOBIN A1C Add-On 07/20/2024 10:19 AM EDT from Last 3 Months or Most Recently Relevant to Health Maintenance Results * (ABNORMAL) Comprehensive metabolic panel (08/22/2024 6:17 AM EDT) Sodium 133 133 - 145 mmol/L LAB CHEMISTRY METHOD 08/22/2024 12:11 PM [facility] Potassium 3.6 3.5 - 5.5 [...] unit/L LAB CHEMISTRY METHOD 08/22/2024 12:11 PM EDT [facility] Total Protein 6.6 6.0 - 8.0 g/dL LAB CHEMISTRY METHOD 08/22/2024 12:11 PM EDT [facility] Albumin 1.8(L) 3.2 - 5.0 g/dL LAB CHEMISTRY METHOD 08/22/2024 12:11 PM EDT [facility] Total Bilirubin 1.7(H) 0.0 - 1.4 mg/dL LAB CHEMISTRY METHOD 08/22/2024 12:11 PM EDT [facility] Blood Venous blood specimen / Unknown Venipuncture / Unknown 08/22/2024 6:17 AM EDT 08/22/2024 10:16 AM EDT us Gerardo Nice MD LAB BLOOD ORDERABLES Final Resul t [facility] [address] [place] [address], [place] [phone] * Hepatitis panel, acute with reflex to [...] 6:55 AM EDT 07/23/2024 7:02 AM EDT us Ivan Lewis MD LAB BLOOD ORDERABLE S Final Result Performing Organization Address [facility]/ZIP Co de Phone Number [facility] [address] [place] [address], * (ABNORMAL) Hemoglobin A1c (07/20/2024 10:19 AM [...] BLOOD ORDERABLES Final Result Performing Organization Address [facility] Co de Phone Number [facility] [address] [place] [address], from Last 3 Months or Most Recently Relevant to Health Maintenance Insurance [facility] [place] [address] Advance Directives Documents on File Type Date Recorded Patient Entry Level Civil Engineer Expl anation Advance Directives and Living Will [...] Name Relationship Healthcare Agent Relationship Communication Emily Joselyn-May Spouse Health Care Agent [phone] (Mobile ) Gustavo Joselyn Brother First Alternate Health Care Agent Care Teams Cyber Security Architect Relationship Specialty Start Date End Date Gerardo Nice MD [address] [place] [address], [phone] PCP - General Family Medicine 07/29/24
--- OUTSIDE RECORDS SUMMARY | 2025-02-07 16:23 | XMS_ITS | Encounter Summary ---
Author Organization [facility] Address [address] [place] [address] Phone Care Team Providers Care Residence Supervisor Name Role Phone Unavailable Primary Care Provider Unavailabl e Encounter Details Date Type Department Care Team (Late st Contact Info) Description 09/07/2024 Scanned Document [facility] [address] [place], [place] [id number] Yolanda Doll MD [address] [place] [address] Social History Tobacco Use Types [...]
--- OUTSIDE RECORDS SUMMARY | 2025-02-07 16:23 | XMS_ITS | Data Portability ---
Author Organization [facility], Main Office Address [address] [place] [address] [address] [place] [address] Care Team Providers Care Correctional Counselor Name Role Phone [facility] OTHER SADA IBANEZ Primary [...] and Address Organization Details Recorded Time Sepsis 12529699 Active 2024 Not Available [facility] 18:36:59 Type 2 diabetes mellitus without complicati on 338920200 Active 2024 Not Available [facility] 18:37:00 Low back pain 321318339 Active 2024 Not Available [facility] 16:46:30 Alcoholic cirrhosis 205813145 Active 2024 Not Available [facility] 18:37:02 Hypo-osmol ality and or hyponatrem ia 330293701 Active 2024 Not Available [facility] 18:37:57 Pain of left knee region 933485671356 109 Active 2024 Not Available [facility] 18:38:00 Diffuse large B-cell lymphoma (tiffany/sys temic with skin involvemen t) 320759399 Active 2024 Not Available [facility] 16:46:31 Nerve root disorder 26862275 Active 2024 Not Available [facility] 18:38:11 Morbid obesity 263697415 Active 2024 Not Available [facility] 18:38:12 Acute kidney injury 76113603 Active 2024 Not Available [facility] 16:46:27 Lymphedema 270256670 Active 2024 Not Available [facility] 5 16:45:33 Muscle weakness 38540824 Active 2024 Not Available [facility] 5 16:39:11 Unsteady when standing 083289017 Active 2024 Not Available [facility] 5 16:46:28 Difficulty walking 742769666 Active 2024 Not Available [facility] 5 08:39:34 Edema of lower extremity 248204663 Active 2024 Dk Bingham MD [address] [facility], [address], [place], [address], [facility] 5 12:05:12 Diffuse large B-cell lymphoma 649978866 Active 2024 Dk Bingham MD [address] [facility], [address], [place], [address], [facility] 5 12:05:17 Problem Notes None recorded. [...] Recorded Time Tdap 08/14/2023 completed [facility] 07/31/2024 16:24:48 Tdap 01/29/2021 completed [facility]in [facility], [facility] 07/31/2024 16:24:54 influenza, unspecified formulation 01/29/2021 completed Ludin [facility] 07/31/2024 16:25:05 influenza, unspecified formulation 12/11/2021 completed Ludin [facility] 07/31/2024 16:25:17 Hep A, unspecified formulation 01/04/2009 completed Ludin [facility] 07/31/2024 16:25:37 Hep A, unspecified formulation 09/17/2009 completed Ludin [facility] 07/31/2024 16:25:41 SARS-COV-2 (COVID-19) vaccine, UNSPECIFIED 05/15/2020 completed Ludin [facility] 07/31/2024 16:25:54 SARS-COV-2 (COVID-19) vaccine, UNSPECIFIED 06/05/2020 completed [facility] 07/31/2024 16:25:59 SARS-COV-2 (COVID-19) vaccine, UNSPECIFIED 01/29/2021 completed [facility] 07/31/2024 16:26:04 SARS-COV-2 (COVID-19) vaccine, UNSPECIFIED 12/11/2021 completed [facility] 07/31/2024 16:26:08 Past Encounters Encounter ID Performer Location Encounter Start Date Encounter Closed Date Diagnosis/Indication Diagnosis SNOMED-CT Code Diagnosis ICD10 Code Diagnosis IMO Codes Diagnosis Note [id number] [address], [place] [address] 07/29/2024 09:02:38 08/31/2024 15:39:50 Gram positive sepsis 902228800 A41.89 06795 Strep beta-hemol ytic group B with UNKNOWN source positive 07/20, 07/21; subsequent cultures x 2 negative; neg 2D echomainta in midline RUAcont IV rocpehn (ends 08/04)monito r cbc and fevers Asthenia 01911328 R53.1 96739 admit to PT/OTmonit or progress with therapy Enzyme lev el - finding 713250766 R74.01 777574 in setting of cirrhosis, mild ascites, hypovolemi c hyponatrem iastarted on spironolac tone/lasix inpatient work-up unrevealin g with plans for further care per [facility] GI/Livermo nitor CMPneeds GI f/up Chronic low back pain 27 2612572 M54.42 M54.41 G89.29 50806018 recent MRI negative other than bugling discsstart sched tylenol 650 tidstart oxy 5 q6h prn x 5 daysmonito r pain and tolerance to therapy Type 2 radha betes mellitus 80133259 E11.69 E78.5 2606073 recent A1c 8.9cont home metforminm onitor blood sugars Essential hypertension 69221483 I10 20158 not currently on BP medsmonito r need to start on medication srecently started on diuretic, now on bumex. [id number] KEV GARCIA REDHÉCTOR [address] [place] [address] 08/01/2024 09:22:20 08/08/2024 10:25:04 Gram positive sepsis 485706548 A41.89 42639 bacteremia unknown source/Str ep beta-hemol ytic group B4/24 +Blood cx repeat blood cx 07/22 [id number] echocardio gram negative for any vegetation .CT scan chest and ultrasound abdomen showed cirrhosis and cholelithi asis otherwise no significan t findings.d ischarged on IV therapycon t ceftriaxon e 2 gm until 08/04/24 Asthenia 44638531 R53.1 19982 cont PT/OT eval Type 2 radha betes mellitus 45470466 E11.69 E78.5 9592781 recent A1c 8.9, inpatient use of Lantus on his outpatient metformin Essential hypertension 16785724 I10 53028 stable,not currently on BP medsmonito r need to start on medication srecently started on diuretic, now on bumex. [id number] Dk Bingham MD [facility] [address] [place] [address] 08/02/2024 10:52:06 08/10/2024 11:59:12 Morbid obesity 447463893 E66.01 Gram positive sepsis 194 229624 A41.89 48672 Strep beta-hemol ytic group B with UNKNOWN source positive 07/20, 07/21; subsequent cultures x 2 negative; neg 2D echoon recommenda tion from ID, complete IV Rocephin 08/04/2024 Enzyme lev el - finding 282763448 R74.01 695009 in setting of cirrhosis, mild ascites, hypovolemi c hyponatrem iastarted on spironolac tone/lasix inpatient work-up unrevealin g with plans for further care per [facility] GI/Liverre check labs when appropriat e Chronic low back pain 27 3985093 M54.42 M54.41 G89.29 82641314 recent MRI negative other than bugling discsmild exacerbati on likely sec to being in bed; monitor for nowNot unreasonab le to CHECK UA and electrolyt es with use of K-sparing diuretic and torsemide Pain of le ft knee region 9104299322 77812 M25.562 08519609 recent Ortho evaluation , dry tap Type 2 radha betes mellitus 43070650 E11.69 E78.5 0588575 recent A1c 8.9, inpatient use of Lantus on his outpatient metformin Diffuse la rge B-cell lymphoma 571884256 C83.3A 5251734661 in remission >10 yearsresid ual LEFT leg lymphedema Edema of l ower extremity 458652461 R60.0 75494 recent doppler U/S negative. LEFT >>R Essential hypertension 57811923 I10 39533 monitor on new diuretics; normal renal function but may benerif from YANCY-I/ARB Erectile dysfunction 860 814753 E11.69 N52.1 240828 Ejection murmur 49478889 R01.1 8407193 appears to have had a transthora cic echo; continue to monitor; consider REBECCA if decompensa yoandy Asthenia 51808523 R53.1 81090 PT/OT eval For resuscitation 244427 001 Z78.[id number] [place] [address] 08/03/2024 14:37:04 08/08/2024 11:42:50 Low back pain 857850994 M54.50 chronicrec ent MR lumbar spine showed multilevel degenerati ve changeson scheduled tylenol 650 mg TIDcontinu e oxycodone Q4 prn Pain of le ft knee region 2431640797 79605 M25.562 worsening pain most likely due to therapycon t apap and oxycodone Type 2 radha betes mellitus 91716510 E11.9 50958455 recent A1c 8.9no recent bgldiscuss ed with nursingacc ucheck TID with mealsstart lispro SSC coveragemo nitor need to add additional medication tx with lantus in acute care. [id number] [place] [address] 08/08/2024 09:52:21 08/10/2024 11:52:23 Low back pain 829180191 M54.50 stable chronicrec ent MR lumbar spine showed multilevel degenerati ve changeson scheduled tylenol 650 mg TIDcontinu e oxycodone Q4 prn Pain of le ft knee region 9369628818 15017 M25.562 stable today; lying in bedcont apap and oxycodone Type 2 radha betes mellitus 88721191 E11.9 70878645 recent A1c 8.94-5 days bgl mainly mid 200she is without s/sx of hyperglyce miacont accucheck TID with mealscont lispro SSC coverage consider adding metformin for better glucose control.tx with lantus in acute care. [id number] [place] [address] 08/10/2024 12:30:43 08/11/2024 10:58:58 Acute diarrhea 005404132 R19.7 92112 resolvingr eportedly had 12-14 loose stoolsmost likely was given laxatives for previous c/o constipati onper nursing today, stool is soft.stool negative for cdiff. [id number] [place] [address] 08/15/2024 07:51:26 08/17/2024 09:58:52 Acute diarrhea 225988833 R19.7 57670 resolved Low back pain 159574962 M54.50 stablerece nt MR lumbar spine showed multilevel degenerati ve changeson scheduled tylenol 650 mg TIDcontinu e oxycodone Q4 prn Pain of le ft knee region 9722827844 71048 M25.562 stableIncr ease pain after working with therapycon t apap and oxycodone Type 2 radha betes mellitus 28338561 E11.9 37183157 recent A1c 8.9accu-ch ecks mainly in the 200's before mealsasymp tomaticwil l increase metformin from 500 to 750 mg BIDdiscuss ed with nursingcon t accucheck TID with mealscont lispro SSC coveragemo nitor need to add additional medication tx with lantus in acute care. [id number] [place] [address] 08/17/2024 08:42:55 08/25/2024 10:49:27 Low back pain 580498697 M54.50 stablerece nt MR lumbar spine showed multilevel degenerati ve changeson scheduled tylenol 650 mg TIDcontinu e oxycodone Q4 prn Pain of le ft knee region 9409992883 90075 M25.562 stableIncr ease pain after working with therapycon t apap and oxycodone Type 2 radha betes mellitus 05358556 E11.9 84614108 metformin now 750 mg BID- received first dose on 08/15 evening,co nt accucheck TID with mealscont lispro SSC coveragemo nitor need to add additional medication tx with lantus in acute care. [id number] MISBAH [place] [address] 08/23/2024 11:42:25 08/25/2024 13:13:56 Low back pain 233583239 M54.50 stablerece nt MR lumbar spine showed multilevel degenerati ve changeson scheduled tylenol 650 mg TIDcontinu e oxycodone 5 mg q6h prncont salonpas to lower back dailycont flexeril 10 mg q8h prn for spasmsf/up with pcp Pain of le ft knee region 0680471957 34162 M25.562 stablehas pain after working with therapycon t apap and oxycodone as abovef/up with pcprecs to f/up with ortho on dc Type 2 radha betes mellitus 04738906 E11.9 87019495 many sugars still > 200 with increased metformini ncrease to metformin 850 mg bidcont accucheck tid w/ ss lispro coveragef/ up with pcp Gram positive sepsis 194 374013 A41.89 42548 bacteremia unknown source/Str ep beta-hemol ytic group B4/24 +Blood cx repeat blood cx 07/22 negativeco mpleted IV antbx Asthenia 57760258 R53.1 17183 completed PT/OT evalhome with services Essential hypertension 66239281 I10 82991 majority of BP above goaldt h/o cirrhosis and mild tachycardi a with HR often in the low 100 range = bb will help with bothstart coreg 6.25 mg bidmonitor bp bid and repeat labs with pcp Cirrhosis of liver 007 K74.69 8520058 w/ mild asciteson bumex and aldactonem onitor [...] Jacques Member ID Guarantor Name 09/28/2024 1 [facility] [id number] Martin Alves [id number] Martin Alves 08/08/[address] [facility] (MEDICARE REPLACEMENT/A DVANTAGE - PPO) [id number] Martin Alves [id number] Martin Alves Notes Date Note Type Note [...] currently pain is controlled. SINDIKEV CHANG [address] [facility], [address], [place], [address], [facility] 08/09/2024 22:02:29 08/10/2024 text/html ROS as noted in the [facility] 58 yr old male patient seen for acute rounding visit. Per nursing patient having diarrhea, concerned for possible infectious cause due to recent abx use. otherwise he is doing well, he previously had c/o constipation. KEV GARCIA [address] [facility], [address], [place], [address], [facility] 08/11/2024 03:12:31 08/15/2024 text/html ROS as [...] the 200's, options discussed. KEV GARCIA [address] [facility], [address], [place], [address], [facility] 08/15/2024 16:01:02 08/17/2024 text/html ROS as noted [...] for months to years. KEV GARCIA [address] [facility], [address], [place], [address], [facility] 08/17/2024 16:29:32 08/23/2024 text/html ROS as [...] meds and services in place. MISBAH WARNER, PLASTIC SHAPER-C [address] [place] [address], [address], [place], [address], [facility] - [facility] 08/23/2024 15:53:58
--- OUTSIDE RECORDS SUMMARY | 2025-02-07 16:23 | XMS_ITS | Encounter Summary ---
Author Organization [facility] Address [address] [place] [address] Phone Care Team Providers Care Publication Distributor Name Role Phone Unavailable Primary Care Provider Unavailabl e Encounter Details Date Type Department Care Team (Late st Contact Info) Description 10/11/2024 Scanned Document [facility] [address] [place], [place] [id number] Yolanda Doll MD [address] [place] [address] Social History Tobacco Use Types [...]
--- OUTSIDE RECORDS SUMMARY | 2025-02-07 16:23 | XMS_ITS | Encounter Summary ---
Author Organization [facility] Address [address], [address] [place] [address] Phone Care Team Providers Care Loan Teller Name Role Phone Unavailable Primary Care Provider Unavailabl e Encounter Details Date Type Department Care Team (Late st Contact Info) Description 12/01/2024 Scanned Document [facility] [address] [place] [address] [place], [place] [id number] Yolanda Doll MD [address] [place] [address] Social History Tobacco Use Types [...]
== END 2025-02-07 14:22 | disposition home or self-care (01) ==
LOC: HO.HGI 13:30
PROVIDERS: Visit Provider Internal Medicine
DX: K74.60 Unspecified cirrhosis of liver (principal); K75.81 Nonalcoholic steatohepatitis (NASH); C85.90 Non-Hodgkin lymphoma, unspecified, unspecified site; R60.0 Localized edema; R53.1 Weakness; R76.89 Other specified abnormal immunological findings in serum
CPT/HCPCS: 99214; G2211